=== PATIENT | male | born 1990 | race Caucasian/White ===

== ENCOUNTER 2017-07-30 | Emergency (ER) | payer SELFPAY ==
--- NOTE | 2017-07-30 15:41 | ER ---
Nurse's Notes [facility] Name: Enio Bradley Age: 27 yrs Sex: Male : 1990 Arrival Date: 07/30/2017 Time: 14:08 Bed 30 Private MD: Diagnosis: Abrasion, right knee;Cellulitis right knee Presentation: 07/30 14:45 Presenting complaint: Patient states: " About 3 days ago my knee started hurting. It's ph not to bad in the morning but during the day it swells up and really hurts." Pt reports pain in R knee, denies known injury or fever. Transition of care: patient was not received from another setting of care. Onset of symptoms was July 30, 2017. Care prior to arrival: None. 14:45 Method Of Arrival: Ambulatory ph 14:45 Acuity: JAMAL 4 ph Historical: - Allergies: 15:52 No Known Allergies; lk1 - Home Meds: 14:48 Insulin: Regular Sub-Q [Active]; Lantus Sub-Q daily [Active]; ph - PMHx: 14:48 ADD/ADHD; Diabetes - IDDM; ph - PSHx: 14:48 Ear Tubes; ph - Immunization history:: Adult Immunizations unknown. - Social history:: Smoking status: Patient uses tobacco products, chewing tobacco. - Family history:: not pertinent. - Hospitalizations: : No recent hospitalization is reported. Screenin:54 Abuse screen: Denies threats or abuse. Denies injuries from another. Nutritional lk1 screening: No deficits noted. Tuberculosis screening: No symptoms or risk factors identified. Fall Risk Total Romero Fall Scale indicates Low Risk Score (25-44 pts). Fall prevention measures have been instituted. Side Rails Up X 2 Placed close to Nursing Station Frequent Obs/Assesments occuring As available Patient and Family Educated on Fall Prevention Program and strategies. Assessment: 15:10 General: Appears in no apparent distress. Behavior is calm, cooperative, appropriate lk1 for age. Pain: Complains of pain in right knee Pain currently is 8 out of 10 on a pain scale. Cardiovascular: Capillary refill is brisk Patient's skin is warm and dry. Respiratory: Airway is patent Respiratory effort is even, unlabored, Respiratory pattern is regular, symmetrical. Derm: Wound noted right leg Wound is abrasion with redness surrounding. Vital Signs: 14:46 BP 129 / 87; Pulse 98; Resp 16; Temp 98.1; Pulse Ox 100% on R/A; Weight 83.91 kg; ph Height 5 ft. 10 in. (177.80 cm); Pain 8/10; 14:46 Body Mass Index 26.54 (83.91 kg, 177.80 cm) ph ED Course: 14:08 Patient arrived in ED. as 14:18 Debbie Gomez FNP is [facility]. ka 14:18 Reece Hebert MD is Attending Physician. ka 14:46 Triage completed. ph 14:48 Arm band placed on. ph 15:50 Sandhya Mendes, YVONNE is Primary Nurse. lk1 15:56 Patient has correct armband on for positive identification. lk1 15:56 No provider procedures requiring assistance completed. Patient did not have IV access lk1 during this emergency room visit. Administered Medications: No medications were administered Outcome: 15:41 Discharge ordered by MD. ka 15:53 Discharged to home ambulatory. lk1 15:53 Condition: good 15:53 Discharge instructions given to patient, Instructed on discharge instructions, follow up and referral plans. medication usage, safety practices, Demonstrated understanding of instructions, follow-up care, medications, Prescriptions given X 2. 15:56 Patient left the ED. lk1 Signatures: Debbie Gomez FNP FNP kav Martinez, Amelia as Hall, Patricia, RN RN Sandhya Mendes, YVONNE RN lk1
--- NOTE | 2017-07-30 15:42 | EDPHYS ---
Physician Documentation [facility] Name: Enio Bradley Age: 27 yrs Sex: Male : 1990 Arrival Date: 07/30/2017 Time: 14:08 Bed 30 Private MD: ED Physician Reece Hebert HPI: 07/30 14:19 This 27 yrs old Male presents to ER via Unassigned with complaints of Knee kav Pain. 15:15 Onset: The symptoms/episode began/occurred acutely, last night. The patient has not kav experienced similar symptoms in the past. The patient has not recently seen a physician. right knee with warmth, tenderness to touch and erythema. 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 pmhx: type 1 dm, staph infection x 2 past 5 years. 15:18 The patient presents with swelling, tenderness. The complaints affect the right knee. kav Context: The problem was sustained at work. Modifying factors: The symptoms are alleviated by nothing. the symptoms are aggravated by bending knee. Associated signs and symptoms: Pertinent negatives fever. Treatment prior to arrival includes: no previous treatment. Severity of symptoms: At their worst the symptoms were mild, just prior to arrival. Historical: - Allergies: 15:52 No Known Allergies; lk1 - Home Meds: 14:48 Insulin: Regular Sub-Q [Active]; Lantus Sub-Q daily [Active]; ph - PMHx: 14:48 ADD/ADHD; Diabetes - IDDM; ph - PSHx: 14:48 Ear Tubes; ph - Immunization history:: Adult Immunizations unknown. - Social history:: Smoking status: Patient uses tobacco products, chewing tobacco. - Family history:: not pertinent. - Hospitalizations: : No recent hospitalization is reported. ROS: 15:18 Constitutional: Negative for fever, chills, and weight loss, Eyes: Negative for injury, kav pain, redness, and discharge, ENT: Negative for injury, pain, and discharge, Neck: Negative for injury, pain, and swelling, Cardiovascular: Negative for chest pain, palpitations, and edema, Respiratory: Negative for shortness of breath, cough, wheezing, and pleuritic chest pain, Abdomen/GI: Negative for abdominal pain, nausea, vomiting, diarrhea, and constipation, Back: Negative for injury and pain, : Negative for injury, bleeding, discharge, and swelling, MS/Extremity: Negative for injury and deformity, Neuro: Negative for headache, weakness, numbness, tingling, and seizure, Psych: Negative for depression, anxiety, suicide ideation, homicidal ideation, and hallucinations, Allergy/Immunology: Negative for hives, rash, and allergies, Endocrine: Negative for neck swelling, polydipsia, polyuria, polyphagia, and marked weight changes, Hematologic/Lymphatic: Negative for swollen nodes, abnormal bleeding, and unusual bruising. 15:18 Skin: Positive for erythema, swelling. Exam: 15:18 Constitutional: This is a well developed, well nourished patient who is awake, alert, kav and in no acute distress. Head/Face: Normocephalic, atraumatic. Eyes: Pupils equal round and reactive to light, extra-ocular motions intact. Lids and lashes normal. Conjunctiva and sclera are non-icteric and not injected. Cornea within normal limits. Periorbital areas with no swelling, redness, or edema. ENT: Nares patent. No nasal discharge, no septal abnormalities noted. Tympanic membranes are normal and external auditory canals are clear. Oropharynx with no redness, swelling, or masses, exudates, or evidence of obstruction, uvula midline. Mucous membranes moist. Neck: Trachea midline, no thyromegaly or masses palpated, and no cervical lymphadenopathy. Supple, full range of motion without nuchal rigidity, or vertebral point tenderness. No Meningismus. Chest/axilla: Normal chest wall appearance and motion. Nontender with no deformity. No lesions are appreciated. Cardiovascular: Regular rate and rhythm with a normal S1 and S2. No gallops, murmurs, or rubs. Normal PMI, no JVD. No pulse deficits. Respiratory: Lungs have equal breath sounds bilaterally, clear to auscultation and percussion. No rales, rhonchi or wheezes noted. No increased work of breathing, no retractions or nasal flaring. Abdomen/GI: Soft, non-tender, with normal bowel sounds. No distension or tympany. No guarding or rebound. No evidence of tenderness throughout. Back: No spinal tenderness. No costovertebral tenderness. Full range of motion. MS/ Extremity: Pulses equal, no cyanosis. Neurovascular intact. Full, normal range of motion. Neuro: Awake and alert, GCS 15, oriented to person, place, time, and situation. Cranial nerves II-XII grossly intact. Motor strength 5/5 in all extremities. Sensory grossly intact. Cerebellar exam normal. Normal gait. Psych: Awake, alert, with orientation to person, place and time. Behavior, mood, and affect are within normal limits. 15:18 Skin: cellulitis, that is mild, irregular, on the right knee. Vital Signs: 14:46 BP 129 / 87; Pulse 98; Resp 16; Temp 98.1; Pulse Ox 100% on R/A; Weight 83.91 kg; ph Height 5 ft. 10 in. (177.80 cm); Pain 8/10; 14:46 Body Mass Index 26.54 (83.91 kg, 177.80 cm) ph MDM: 14:52 Patient medically screened. [facility] 15:18 Data reviewed: vital signs, nurses notes. kav Administered Medications: No medications were administered Disposition: 16:13 Co-signature as Attending Physician, Reece Hebert MD. rn Disposition: 07/30/17 15:41 Discharged to Home. Impression: Abrasion, right knee, Cellulitis right knee. - Condition is Stable. - Discharge Instructions: Cellulitis, [id number], Abrasion, [id number]. - Prescriptions for Bactroban 2 % Topical Ointment - Apply to affected area 1 application by TOPICAL route every 12 hours; 15 gram. Bactrim DS 800- 160 mg Oral Tablet - take 1 tablet by ORAL route every 12 hours for 10 days; 20 tablet. - Medication Reconciliation Form, Thank You Letter, Antibiotic Education, Prescription Opioid Use form. - Follow up: Private Physician; When: 2 - 3 days; Reason: Recheck today's complaints, Continuance of care, Re-evaluation by your physician. - Problem is new. - Symptoms are unchanged. Signatures: Debbie Gomez, GIS WEB DEVELOPER GIS WEB DEVELOPER Reece Mena MD MD rn Hall, Patricia, RN RN ph Kluge, Leah, RN RN lk1
== END 2017-07-30 15:56 | disposition home or self-care (01) ==
CPT/HCPCS: 99282

== ENCOUNTER 2018-02-12 23:36 | Emergency (ER) | payer SELFPAY ==
--- OUTSIDE RECORDS SUMMARY | 2018-02-12 23:39 | XMS REPORT | Continuity of Care Document ---
:1990 Author Organization Interface Problems Problem Status Onset Classification Date Comments Source Date Reported Discharge 11/26/2016 [facility] Diagnosis: 7 Cervical strain ACCIDENT Active [facility] 7 [place] DM (<span Resolved Problem 11/26/2016 [facility] ID="[id number]">Confirme d</span>) Medications Medication Details Route Status Patient Ordering Order Source Instructions Provider Date Cyclobenzaprine 10 mg, PO, Active hydrochloride 10 TID, PRN 017 [place] MG Oral Tablet Muscle [Flexeril] Spasm, X 10 day, # 30 tab, 0 Refill(s) Motrin 800 mg oral 800 mg=1 Active tablet tab, PO, 017 [place] TID, X 7 day, # 21 tab, 0 Refill(s) Allergies, Adverse Reactions, Alerts Substance Category Reaction Severity Reaction Status Date Comments Source type Reported Immunizations Immunization Date Given Site Status Last Updated Comments Source Results Order Results Value Reference Date Interpretation Comments Source Name Range Vital Signs Vital Sign Value Date Comments Source Temperature Oral (F) 98.2 F 11/24/2016 [facility] Heart Rate 88 11/24/2016 [facility] Respitory Rate 16 11/24/2016 [facility] Systolic (mm Hg) 117 11/24/2016 [facility] Diastolic (mm Hg) 75 11/24/2016 [facility] BMI Calculated 26.6 11/24/2016 [facility] Height 177.8 cm 11/24/2016 [facility] Weight 84.091 11/24/2016 [facility] Respitory Rate 18 11/24/2016 [facility] Heart Rate 91 11/24/2016 [facility] Systolic (mm Hg) 118 11/24/2016 [facility] Diastolic (mm Hg) 76 11/24/2016 [facility] Temperature Oral (F) 98.1 F 11/24/2016 [facility] Encounters Location Location Encounter Encounter Reason Attending ADM DC Status Source Details Type Number For Provider Date Date Visit [facility] Emergency [id number] [place] 11/24 11/24 MAGAN [place] /2016 [facility] Procedures Procedure Code Date Perfomer Comments Source Removal of [id number] MAGAN [place] silastic tubes from ear
--- OUTSIDE RECORDS SUMMARY | 2018-02-12 23:39 | XMS REPORT | Summary of Care ---
:1990 Author Organization [facility] Address [address] [place] [address]- Encounter HQ Bethelntr_raul(FIN) [id number] Date(s): 11/23/16 - 11/23/16 [facility] [address] [place] [phone] Discharge Diagnosis: Cervical strain Discharge Disposition: Home or Self Care Attending Physician: Porsha Al[place] MD Vital Signs Most recent to oldest [Reference Range]: 1 2 Height 177.8 cm (11/23/16 8:48 PM) Temperature Oral [96.4-99.1 DegF] 98.2 DegF 98.1 DegF (11/23/16 10:00 PM) (11/23/16 8:48 PM) Blood Pressure [90-140/60-90 mmHg] 117/75 mmHg 118/76 mmHg (11/23/16 10:00 PM) (11/23/16 8:48 PM) Respiratory Rate [14-20 BRMIN] 16 BRMIN 18 BRMIN (11/23/16 10:00 PM) (11/23/16 8:48 PM) Peripheral Pulse Rate [60-100 bpm] 88 bpm 91 bpm (11/23/16 10:00 PM) (11/23/16 8:48 PM) Weight 84.091 kg (11/23/16 8:48 PM) Body Mass Index 26.6 m2 (11/23/16 8:48 PM) Problem List Condition Effective Dates Status Health Status Informant DM (diabetes mellitus)(Confirmed) Resolved Allergies, Adverse Reactions, Alerts Substance Reaction Severity Status NKDA Active Medications Flexeril 10 mg oral tablet 10 mg, PO, TID, PRN Muscle Spasm, X 10 day, # 30 tab, 0 Refill(s) Start Date: 11/23/16 Stop Date: 12/03/16 Status: OrderedMotrin 800 mg oral tablet 800 mg=1 tab, PO, TID, X 7 day, # 21 tab, 0 Refill(s) Start Date: 11/23/16 Stop Date: 11/30/16 Status: Ordered Results No data available for this section Immunizations No data available for this section Procedures Procedure Date Related Diagnosis Body Site Removal of silastic tubes from ear Social History Social History Type Response Smoking Status Never smoker; Exposure to Tobacco Smoke None; Cigarette Smoking Last 365 Days No; Reg Smoking Cessation Counseling No Assessment and Plan No data available for this section
[2018-02-13 00:30] LABS: Absolute Lymphocytes (CBC) 1.2 K/uL (0.7-4.9); Absolute Monocytes 0.4 K/uL (0.1-1.3); Basophils % 0.9 % (0-1.3); Eosinophils % 2.5 % (0-4.4); Hematocrit 44.7 % (39.6-49.0); Lymphocytes % 31.2 % (15.3-44.8); MCV 91.3 fL (80-100); MPV 8.2 fL (7.6-11.3); Monocytes % 11.1 % (3.3-12.3)
[2018-02-13] MEDS ORDERED: INSULIN -REGULAR HUMAN 50 UNIT/0.5 ML ML ONE ×2 (00:31→02:50)
[2018-02-13] MEDS ORDERED: DIPHENOX/ATROP SULF 1 TAB PO ONE (00:32)
[2018-02-13] MEDS ORDERED: NA CHLORIDE 0.9% 1,000 ML ONE (00:32)
[2018-02-13 00:49] LABS: ALT/SGPT 42 U/L (12-78); AST/SGOT 28 U/L (15-37); Albumin 3.8 g/dL (3.4-5.0); Alkaline Phosphatase 118 U/L (45-117); BUN Blood Urea Nitrogen 19 mg/dL (7-18); Bicarbonate 26 mmol/L (21-32); Bilirubin Direct 0.3 mg/dL (0-0.2); Bilirubin Total 1.3 mg/dL (0.2-1.0); Lipase 78 U/L (73-393); Potassium 4.6 mmol/L (3.5-5.1); Protein, Total 7.6 g/dL (6.4-8.2); Sodium Level 129 mmol/L (136-145)
[2018-02-13 00:50] LABS: Glucose Level 643 mg/dL (74-106)
--- NOTE | 2018-02-13 04:11 | EDPHYS ---
Physician Documentation [facility] Name: Enio Bradley Age: 27 yrs Sex: Male : 1990 Arrival Date: 02/12/2018 Time: 23:37 Bed 20 Private MD: ED Physician Humberot Valdez HPI: 02/13 00:50 This 27 yrs old Male presents to ER via Ambulatory with complaints of tw4 Diarrhea. 00:50 The patient presents to the emergency department with diarrhea, 15 times since the tw4 onset of symptoms. Onset: The symptoms/episode began/occurred yesterday. Possible causes: unknown. The symptoms are aggravated by nothing. The symptoms are alleviated by nothing. Associated signs and symptoms: The patient has no apparent associated signs or symptoms. Severity of symptoms: At their worst the symptoms were moderate. The patient has not experienced similar symptoms in the past. Historical: - Allergies: 02/12 23:53 No Known Allergies; fc - Home Meds: 23:53 Lantus Sub-Q 32 unit twice a day [Active]; Insulin: Regular Sub-Q qid per sliding scale fc [Active]; - PMHx: 23:53 ADD/ADHD; Diabetes - IDDM; fc - PSHx: 23:53 Ear Tubes; fc - Immunization history:: Last tetanus immunization: unknown. - Social history:: Smoking status: Patient/guardian denies using tobacco, Patient uses alcohol, occasionally. Patient/guardian denies using street drugs. - Ebola Screening: : Patient negative for fever greater than or equal to 101.5 degrees Fahrenheit, and additional compatible Ebola Virus Disease symptoms Patient denies exposure to infectious person Patient denies travel to an Ebola-affected area in the 21 days before illness onset. ROS: 02/13 00:50 Constitutional: Negative for fever, chills, and weight loss, Eyes: Negative for injury, tw4 pain, redness, and discharge, Cardiovascular: Negative for chest pain, palpitations, and edema, Respiratory: Negative for shortness of breath, cough, wheezing, and pleuritic chest pain, MS/Extremity: Negative for injury and deformity, Skin: Negative for injury, rash, and discoloration. Abdomen/GI: Positive for diarrhea, Negative for abdominal pain, nausea and vomiting, nausea, vomiting, and diarrhea, nausea, vomiting, abdominal cramps, abdominal distension, anorexia, dysphagia, hematemesis. Exam: 00:50 Constitutional: This is a well developed, well nourished patient who is awake, alert, tw4 and in no acute distress. Head/Face: Normocephalic, atraumatic. Chest/axilla: Normal chest wall appearance and motion. Nontender with no deformity. No lesions are appreciated. Cardiovascular: Regular rate and rhythm with a normal S1 and S2. No gallops, murmurs, or rubs. Normal PMI, no JVD. No pulse deficits. Respiratory: Lungs have equal breath sounds bilaterally, clear to auscultation and percussion. No rales, rhonchi or wheezes noted. No increased work of breathing, no retractions or nasal flaring. Abdomen/GI: Soft, non-tender, with normal bowel sounds. No distension or tympany. No guarding or rebound. No evidence of tenderness throughout. Back: No spinal tenderness. No costovertebral tenderness. Full range of motion. MS/ Extremity: Pulses equal, no cyanosis. Neurovascular intact. Full, normal range of motion. Neuro: Awake and alert, GCS 15, oriented to person, place, time, and situation. Cranial nerves II-XII grossly intact. Motor strength 5/5 in all extremities. Sensory grossly intact. Cerebellar exam normal. Normal gait. Vital Signs: 02/12 23:40 BP 138 / 79; Pulse 103; Resp 20; Temp 98.2(O); Pulse Ox 100% on R/A; Weight 79.38 kg fc (R); Height 5 ft. 10 in. (177.80 cm) (R); Pain 0/10; 02/13 00:45 Pulse 100; Resp 16 S; Pulse Ox 100% on R/A; jd3 01:20 BP 116 / 69; Pulse 102; Resp 16 S; Pulse Ox 98% on R/A; jd3 02:33 BP 114 / 64; Pulse 94; Resp 18 S; Pulse Ox 98% on R/A; jd3 03:47 BP 113 / 62; Pulse 90; Resp 17 S; Pulse Ox 98% on R/A; jd3 02/12 23:40 Body Mass Index 25.11 (79.38 kg, 177.80 cm) MDM: 02/12 23:42 Patient medically screened. tw4 02/13 04:58 Differential diagnosis: Nonspecific abd pain, gastritis. Data reviewed: vital signs, tw4 nurses notes. Data interpreted: Pulse oximetry: Interpretation: normal. Counseling: I had a detailed discussion with the patient and/or guardian regarding: the historical points, exam findings, and any diagnostic results supporting the discharge/admit diagnosis. 02/12 23:55 Order name: Basic Metabolic Panel; Complete Time: 02:09 tw4 02/13 02:09 Interpretation: Normal except: NA 129; GLUC 643; BUN 19; CRE 1.40; GFR 61. tw4 02/12 23:55 Order name: CBC with Diff; Complete Time: 02:09 tw4 02/13 02:09 Interpretation: Normal except: WBC 3.7. tw4 02/12 23:55 Order name: Creatinine for Radiology; Complete Time: 02:09 4 02/13 02:09 Interpretation: Normal except: CRE 1.40. tw4 02/12 23:55 Order name: Hepatic Function; Complete Time: 02:09 tw4 02/13 02:09 Interpretation: Normal except: ALK 118; BILIT 1.3; BILID 0.3; GLOB 3.8; A/G 1.0. tw4 02/12 23:55 Order name: Lipase; Complete Time: 02:09 4 02/13 02:09 Interpretation: Within normal limits: LIP 78. tw4 02/12 23:55 Order name: IV Saline Lock; Complete Time: 00:36 tw4 02/12 23:55 Order name: Labs collected and sent; Complete Time: 00:36 4 02/12 23:55 Order name: Ketone, Serum; Complete Time: 02:09 tw4 02/13 02:09 Interpretation: Within normal limits: ACET NEG. tw4 Administered Medications: 00:35 Drug: LoMOTIL 2 tabs Route: PO; jd3 02:50 Follow up: Response: No adverse reaction jd3 00:36 Drug: NS 0.9% 1000 ml Route: IV; Rate: 1 bolus; Site: left antecubital; jd3 04:27 Follow up: Response: No adverse reaction; IV Status: Completed infusion; IV Intake: jd3 1000ml 00:36 Drug: Insulin Regular Human 10 units {Co-Signature: cc3 (Magy Medrano).} Route: IVP; jd3 Site: left antecubital; 02:50 Follow up: Response: No adverse reaction jd3 02:49 Drug: Insulin Regular Human 10 units {Co-Signature: tc (Lisa Combs RN).} Route: IVP; jd3 Site: left antecubital; 04:27 Follow up: Response: No adverse reaction; Blood sugar is lowered jd3 Point of Care Testing: Blood Glucose: 00:00 Blood Glucose: High (>450 mg/dL); jd3 01:20 Blood Glucose: 338 mg/dL; jd3 02:30 Blood Glucose: 371 mg/dL; jd3 03:47 Blood Glucose: 278 mg/dL; jd3 00:00 provider notified, blood sent to lab. jd3 Ranges: Critical Glucose Levels:Adult <50 mg/dl or >400 mg/dl <40 mg/dl or >180 mg/dl Disposition: 02/13/18 04:11 Discharged to Home. Impression: Diarrhea, unspecified, Dehydration, Hyperglycemia, unspecified. - Condition is Stable. - Discharge Instructions: Food Choices to Help Relieve Diarrhea, Adult, Diarrhea, Adult, Hyperglycemia, Hyperglycemia, Gwpa-[id number]-Movu. - Prescriptions for Lomotil 2.5- 0.025 mg Oral Tablet - take 2 tablet by ORAL route once daily As needed; 20 tablet. - Medication Reconciliation Form, Thank You Letter, Antibiotic Education, Prescription Opioid Use form. - Follow up: Private Physician; When: Upon discharge from the Emergency Department; Reason: If symptoms return, Further diagnostic work-up, Recheck today's complaints, Continuance of care. - Problem is new. - Symptoms have improved. Signatures: Dispatcher [employer] [facility] An Bellamy, RN Manoj Peña RN RN jd3 Wadley, Terrence, MD MD tw4 Magy Medrano cc3 Lisa Combs RN, ea Corrections: (The following items were deleted from the chart) 00:24 02/12 23:55 BASIC METABOLIC PANEL+C.LAB.BRZ ordered. [facility] 02/13 04:27 04:11 02/13/2018 04:11 Discharged to Home. Impression: Diarrhea, unspecified; jd3 Dehydration; Hyperglycemia, unspecified. Condition is Stable. Forms are Medication Reconciliation Form, Thank You Letter, Antibiotic Education, Prescription Opioid Use. Follow up: Private Physician; When: Upon discharge from the Emergency Department; Reason: If symptoms return, Further diagnostic work-up, Recheck today's complaints, Continuance of care. Problem is new. Symptoms have improved. tw4
--- NOTE | 2018-02-13 04:11 | ER ---
Nurse's Notes [facility] Name: Enio Bradley Age: 27 yrs Sex: Male : 1990 Arrival Date: 02/12/2018 Time: 23:37 Bed 20 Private MD: Diagnosis: Diarrhea, unspecified;Dehydration;Hyperglycemia, unspecified Presentation: 02/12 23:40 Presenting complaint: Patient states: that he has had diarrhea since yesterday and is fc concerned for dehydration due to his diabetes. BS this am was 380. Denies any abd pain. Transition of care: patient was not received from another setting of care. Onset of symptoms was February 11, 2018. Risk Assessment: Do you want to hurt yourself or someone else? Patient reports no desire to harm self or others. Initial Sepsis Screen: Does the patient meet any 2 criteria? HR > 90 bpm. Yes Does the patient have a suspected source of infection? No. Patient's initial sepsis screen is negative. Care prior to arrival: Medication(s) given: Pepto. 23:40 Method Of Arrival: Ambulatory 23:40 Acuity: JAMAL 3 fc Historical: - Allergies: 23:53 No Known Allergies; fc - Home Meds: 23:53 Lantus Sub-Q 32 unit twice a day [Active]; Insulin: Regular Sub-Q qid per sliding scale fc [Active]; - PMHx: 23:53 ADD/ADHD; Diabetes - IDDM; fc - PSHx: 23:53 Ear Tubes; fc - Immunization history:: Last tetanus immunization: unknown. - Social history:: Smoking status: Patient/guardian denies using tobacco, Patient uses alcohol, occasionally. Patient/guardian denies using street drugs. - Ebola Screening: : Patient negative for fever greater than or equal to 101.5 degrees Fahrenheit, and additional compatible Ebola Virus Disease symptoms Patient denies exposure to infectious person Patient denies travel to an Ebola-affected area in the 21 days before illness onset. Screenin:40 Abuse screen: Denies threats or abuse. Nutritional screening: No deficits noted. fc Tuberculosis screening: No symptoms or risk factors identified. Fall Risk None identified. Assessment: 23:45 General: Appears in no apparent distress. uncomfortable, Behavior is calm, cooperative, jd3 appropriate for age. Pain: Complains of pain in abdomen Quality of pain is described as aching. Neuro: Level of Consciousness is awake, alert, obeys commands, Oriented to person, place, time, situation. Cardiovascular: Capillary refill < 3 seconds Patient's skin is warm and dry. Respiratory: Airway is patent Respiratory effort is even, unlabored, Respiratory pattern is regular, symmetrical. GI: Abdomen is flat, non-distended, Abd is soft and non tender X 4 quads. Reports diarrhea. : No signs and/or symptoms were reported regarding the genitourinary system. EENT: No signs and/or symptoms were reported regarding the EENT system. Derm: Skin is intact, Skin is dry, Skin is normal, Skin temperature is warm. Musculoskeletal: Circulation, motion, and sensation intact. Range of motion: intact in all extremities. 02/13 00:45 Reassessment: Patient appears in no apparent distress at this time. No changes from jd3 previously documented assessment. Patient and/or family updated on plan of care and expected duration. Pain level reassessed. Patient is alert, oriented x 3, equal unlabored respirations, skin warm/dry/pink. 01:19 Reassessment: Patient appears in no apparent distress at this time. No changes from jd3 previously documented assessment. Patient and/or family updated on plan of care and expected duration. Pain level reassessed. Patient is alert, oriented x 3, equal unlabored respirations, skin warm/dry/pink. 02:33 Reassessment: Patient appears in no apparent distress at this time. No changes from jd3 previously documented assessment. Patient and/or family updated on plan of care and expected duration. Pain level reassessed. Patient is alert, oriented x 3, equal unlabored respirations, skin warm/dry/pink. 03:50 Reassessment: Patient appears in no apparent distress at this time. No changes from jd3 previously documented assessment. Patient and/or family updated on plan of care and expected duration. Pain level reassessed. Patient is alert, oriented x 3, equal unlabored respirations, skin warm/dry/pink. 04:26 Reassessment: Patient appears in no apparent distress at this time. Patient and/or jd3 family updated on plan of care and expected duration. Pain level reassessed. Patient is alert, oriented x 3, equal unlabored respirations, skin warm/dry/pink. pt reported understanding of discharge instructions, even and steady gait upon discharge. Patient states feeling better. Vital Signs: 02/12 23:40 BP 138 / 79; Pulse 103; Resp 20; Temp 98.2(O); Pulse Ox 100% on R/A; Weight 79.38 kg (R); Height 5 ft. 10 in. (177.80 cm) (R); Pain 0/10; 02/13 00:45 Pulse 100; Resp 16 S; Pulse Ox 100% on R/A; jd3 01:20 BP 116 / 69; Pulse 102; Resp 16 S; Pulse Ox 98% on R/A; jd3 02:33 BP 114 / 64; Pulse 94; Resp 18 S; Pulse Ox 98% on R/A; jd3 03:47 BP 113 / 62; Pulse 90; Resp 17 S; Pulse Ox 98% on R/A; jd3 02/12 23:40 Body Mass Index 25.11 (79.38 kg, 177.80 cm) ED Course: 02/12 23:37 Patient arrived in ED. am2 23:40 Arm band placed on Patient placed in an exam room, on a stretcher. fc 23:40 Patient has correct armband on for positive identification. Bed in low position. Call light in reach. 23:42 Humberto Valdez MD is Attending Physician. tw4 23:51 Triage completed. 23:54 Manoj Jasso, YVONNE is Primary Nurse. jd3 02/13 00:12 Inserted saline lock: 20 gauge in left antecubital area, using aseptic technique. Blood jd3 collected. 04:25 No provider procedures requiring assistance completed. IV discontinued, intact, jd3 bleeding controlled, No redness/swelling at site. Pressure dressing applied. Administered Medications: 00:35 Drug: LoMOTIL 2 tabs Route: PO; jd3 02:50 Follow up: Response: No adverse reaction jd3 00:36 Drug: NS 0.9% 1000 ml Route: IV; Rate: 1 bolus; Site: left antecubital; jd3 04:27 Follow up: Response: No adverse reaction; IV Status: Completed infusion; IV Intake: jd3 1000ml 00:36 Drug: Insulin Regular Human 10 units {Co-Signature: cc3 (Magy Medrano).} Route: IVP; jd3 Site: left antecubital; 02:50 Follow up: Response: No adverse reaction jd3 02:49 Drug: Insulin Regular Human 10 units {Co-Signature: tc (Lisa Combs RN).} Route: IVP; jd3 Site: left antecubital; 04:27 Follow up: Response: No adverse reaction; Blood sugar is lowered jd3 Point of Care Testing: Blood Glucose: 00:00 Blood Glucose: High (>450 mg/dL); jd3 01:20 Blood Glucose: 338 mg/dL; jd3 02:30 Blood Glucose: 371 mg/dL; jd3 03:47 Blood Glucose: 278 mg/dL; jd3 00:00 provider notified, blood sent to lab. jd3 Ranges: Intake: 04:27 IV: 1000ml; Total: 1000ml. jd3 Outcome: 04:11 Discharge ordered by . tw4 04:25 Discharged to home ambulatory. jd3 04:25 Condition: stable 04:25 Discharge instructions given to patient, Instructed on discharge instructions, follow up and referral plans. medication usage, Demonstrated understanding of instructions, follow-up care, medications, Prescriptions given X 1. 04:27 Patient left the ED. jd3 Signatures: An Bellamy, RN RN Petty Gamboa Jonathon, RN RN jd3 Humberto Valdez MD MD tw4 Magy Medrano 3 Lisa Combs RN, ea Corrections: (The following items were deleted from the chart) 03:50 03:47 BP 120 / 89; Pulse 97bpm; Resp 22bpm; Spontaneous; Pulse Ox 95% 3 lpm Nasal jd3 Cannula; jd3
[2018-02-13 04:43] VITALS: TEMP 98.2
[2018-02-13 04:45] VITALS: O2SAT 98
[2018-02-13 04:47] VITALS: BP 113/62
== END 2018-02-13 04:27 | disposition home or self-care (01) ==
LOC: ER 23:36
DX: E86.0 Dehydration (principal); E11.65 Type 2 diabetes mellitus with hyperglycemia; Z79.4 Long term (current) use of insulin
CPT/HCPCS: 36415; 80048; 80076; 82010; 82962; 83690; 85025; 96361; 96374; 99284; J7030

== ENCOUNTER 2018-03-28 13:37 | Emergency (ER) | payer SELFPAY ==
--- OUTSIDE RECORDS SUMMARY | 2018-03-28 13:39 | XMS REPORT | Continuity of Care Document ---
:1990 Author Organization Interface Problems Problem Status Onset Classification Date Comments Source Date Reported Discharge 11/26/2016 [facility] Diagnosis: 7 Cervical strain ACCIDENT Active [facility] 7 [place] DM (<span Resolved Problem 11/26/2016 [facility] ID="[id number]">Confirme d</span>) Medications Medication Details Route Status Patient Ordering Order Source Instructions Provider Date Cyclobenzaprine 10 mg, PO, Active hydrochloride 10 TID, PRN 017 [place] [facility] Oral Tablet Muscle [Flexeril] Spasm, X 10 day, # 30 tab, 0 Refill(s) Motrin 800 mg oral 800 mg=1 Active tablet tab, PO, 017 [place] TID, X 7 day, # 21 tab, 0 Refill(s) Allergies, Adverse Reactions, Alerts Substance Category Reaction Severity Reaction Status Date Comments Source type Reported Immunizations Immunization Date Given Site Status Last Updated Comments Source Results Order Results Value Reference Date Interpretation Comments Source Name Range Vital Signs Vital Sign Value Date Comments Source Temperature Oral (F) 98.2 F 11/24/2016 [facility] Heart Rate 88 11/24/2016 [facility] Respitory Rate 16 11/24/2016 [facility] Systolic (mm Hg) 117 11/24/2016 [facility] Diastolic (mm Hg) 75 11/24/2016 [facility] BMI Calculated 26.6 11/24/2016 [facility] Height 177.8 cm 11/24/2016 [facility] Weight 84.091 11/24/2016 [facility] Respitory Rate 18 11/24/2016 [facility] Heart Rate 91 11/24/2016 [facility] Systolic (mm Hg) 118 11/24/2016 [facility] Diastolic (mm Hg) 76 11/24/2016 [facility] Temperature Oral (F) 98.1 F 11/24/2016 [facility] Encounters Location Location Encounter Encounter Reason Attending ADM DC Status Source Details Type Number For Provider Date Date Visit [facility] Emergency [id number] [place] 11/24 11/24 MAGAN [place] /2016 [facility] Procedures Procedure Code Date Perfomer Comments Source Removal of [id number] MAGAN [place] silastic tubes from ear
[2018-03-28 14:19] LABS: Arterial Blood Carboxyhemoglob 1.9 % (0-1.5); Blood Gas Oxyhemoglobin 94.9 % (94-97); Blood O2 Saturation 97.8 % (92-98.5)
[2018-03-28] MEDS ORDERED: NA CHLORIDE 0.9% 1,000 ML ONE ×4 (14:25→18:21)
[2018-03-28 14:48] LABS: BUN Blood Urea Nitrogen 19 mg/dL (7-18); Bicarbonate 21 mmol/L (21-32); Glucose Level 395 mg/dL (74-106); Potassium 3.8 mmol/L (3.5-5.1); Sodium Level 134 mmol/L (136-145)
[2018-03-28 15:11] LABS: Urine Blood 1+ (NEG); Urine Glucose 2+ (NEG); Urine Protein NEGATIVE (NEG); Urine Specific Gravity 1.015 (1.005-1.030)
[2018-03-28 15:11] LABS: Absolute Lymphocytes (CBC) 1.8 K/uL (0.7-4.9); Absolute Monocytes 0.4 K/uL (0.1-1.3); Absolute Neutrophil 4.7 K/uL (1.8-8.0); Basophils % 0.6 % (0-1.3); Eosinophils % 0.6 % (0-4.4); Hematocrit 47.3 % (39.6-49.0); Lymphocytes % 25.5 % (15.3-44.8); MCH 31.2 pg (27.0-35.0); MCV 89.4 fL (80-100); Monocytes % 6.4 % (3.3-12.3); RBC Red Blood Cell Count 5.29 M/uL (4.33-5.43)
--- NOTE | 2018-03-28 15:33 | EKG ---
Test Date: 2018-03-28 Test Time: 14:28:08 Wood Form Builder: KANU MEASUREMENT RESULTS: Intervals: Rate: 101 PA: 148 QRSD: 74 QT: 336 QTc: 435 [place]: P: 43 PA: 148 QRS: 52 T: 13 INTERPRETIVE STATEMENTS: Sinus tachycardia Possible Left atrial enlargement Otherwise normal ECG Compared to ECG 09/02/2016 12:14:29 Sinus rhythm no longer present ST (T wave) deviation no longer present Electronically Signed On 03-28-18 15:32:36 PSYCHIATRIC REGISTERED NURSE by Chong Shoemaker
[2018-03-28] MEDS ORDERED: INSULIN -REGULAR HUMAN 50 UNIT/0.5 ML ML ONE (15:34)
--- NOTE | 2018-03-28 16:38 | EDPHYS ---
Physician Documentation [facility] Name: Enio Bradley Age: 27 yrs Sex: Male : 1990 Arrival Date: 03/28/2018 Time: 13:38 Bed 3 Private MD: ED Physician Reece Hebert HPI: 03/28 14:13 This 27 yrs old Male presents to ER via Ambulatory with complaints of High kb Blood Sugar. 14:13 The patient or guardian reports hyperglycemia, polydipsia, polyuria, that was kb potentially precipitated by no particular event, with the patient's symptoms witnessed by no one, Treatment prior to arrival includes: taking additional insulin. Onset: The symptoms/episode began/occurred yesterday. Associated signs and symptoms: Pertinent positives: polydipsia, polyuria. Current symptoms: In the emergency department the patient's symptoms are unchanged from the initial presentation. The patient has experienced similar episodes in the past. The patient has not recently seen a physician. Pt states "I felt like I was going into DKA so I wanted to come in before it got bad." Reports BGL over 500 with polyuria and polydipsia. Denies nausea or vomiting. Historical: - Allergies: 13:57 No Known Drug Allergies; tw2 - Home Meds: 13:57 Lantus Sub-Q 32 unit twice a day [Active]; Insulin: Regular Sub-Q qid per sliding scale tw2 [Active]; - PMHx: 13:57 ADD/ADHD; Diabetes - IDDM; tw2 - PSHx: 13:57 Ear Tubes; tw2 - Immunization history:: Adult Immunizations up to date. - Social history:: Smoking status: Patient uses tobacco products, chewing tobacco. - Ebola Screening: : Patient denies travel to an Ebola-affected area in the 21 days before illness onset. ROS: 14:15 Constitutional: Negative for fever, chills, and weight loss, ENT: Negative for injury, kb pain, and discharge, Neck: Negative for injury, pain, and swelling, Cardiovascular: Negative for chest pain, palpitations, and edema, Respiratory: Negative for shortness of breath, cough, wheezing, and pleuritic chest pain, Abdomen/GI: Negative for abdominal pain, nausea, vomiting, diarrhea, and constipation, Back: Negative for injury and pain, MS/Extremity: Negative for injury and deformity, Skin: Negative for injury, rash, and discoloration, Neuro: Negative for headache, weakness, numbness, tingling, and seizure. 14:15 Endocrine: Positive for polydipsia, polyuria, Negative for goiter, cold intolerance, heat intolerance, polyphagia, weight gain, weight loss. Exam: 14:15 Constitutional: This is a well developed, well nourished patient who is awake, alert, kb and in no acute distress. Head/Face: Normocephalic, atraumatic. ENT: Nares patent. No nasal discharge, no septal abnormalities noted. Tympanic membranes are normal and external auditory canals are clear. Oropharynx with no redness, swelling, or masses, exudates, or evidence of obstruction, uvula midline. Mucous membranes moist. Neck: Trachea midline, no thyromegaly or masses palpated, and no cervical lymphadenopathy. Supple, full range of motion without nuchal rigidity, or vertebral point tenderness. No Meningismus. Chest/axilla: Normal chest wall appearance and motion. Nontender with no deformity. No lesions are appreciated. Cardiovascular: Regular rate and rhythm with a normal S1 and S2. No gallops, murmurs, or rubs. Normal PMI, no JVD. No pulse deficits. Respiratory: Lungs have equal breath sounds bilaterally, clear to auscultation and percussion. No rales, rhonchi or wheezes noted. No increased work of breathing, no retractions or nasal flaring. Abdomen/GI: Soft, non-tender, with normal bowel sounds. No distension or tympany. No guarding or rebound. No evidence of tenderness throughout. Skin: Warm, dry with normal turgor. Normal color with no rashes, no lesions, and no evidence of cellulitis. MS/ Extremity: Pulses equal, no cyanosis. Neurovascular intact. Full, normal range of motion. Neuro: Awake and alert, GCS 15, oriented to person, place, time, and situation. Cranial nerves II-XII grossly intact. Motor strength 5/5 in all extremities. Sensory grossly intact. Cerebellar exam normal. Normal gait. Vital Signs: 13:56 BP 124 / 80; Pulse 111; Resp 18; Temp 97.1(TE); Pulse Ox 100% on R/A; Pain 0/10; tw2 15:00 BP 116 / 72; Pulse 98; Resp 17; Pulse Ox 98% on R/A; Pain 0/10; hb 16:00 BP 102 / 74; Pulse 87; Resp 16; Pulse Ox 97% on R/A; hb 17:15 BP 101 / 64; Pulse 94; Resp 16; Pulse Ox 100% on R/A; Pain 0/10; hb 18:27 BP 99 / 62; Pulse 85; Resp 15; Pulse Ox 100% on R/A; hb MDM: 14:00 Patient medically screened. kb 14:15 Data reviewed: vital signs, nurses notes. Data interpreted: Pulse oximetry: on room air kb is 100 %. Interpretation: normal. 16:33 Counseling: I had a detailed discussion with the patient and/or guardian regarding: the kb historical points, exam findings, and any diagnostic results supporting the discharge/admit diagnosis, lab results, the need for further work-up and treatment in the hospital. Physician consultation: Abhi Senior MD was contacted at 16:35, regarding admission, to the ICU, patient's condition, and will see patient in ED, shortly. 19:02 ED course: Pt wants to go home, understands he should be admitted for hyperglycemia and rn possible mild/early DKA, patient understands, has had type 1 DM for a long time, and wants to go home, understands risks associated with decision.. 03/28 14:08 Order name: CBC with Diff 03/28 14:08 Order name: Basic Metabolic Panel 03/28 14:08 Order name: Acetone, Serum kb 03/28 14:08 Order name: ABG kb 03/28 14:26 Order name: Urine Dipstick--Ancillary (enter results) lt1 03/28 14:26 Order name: ABG Arterial Blood Gas; Complete Time: 14:26 EDMS 03/28 14:49 Order name: Basic Metabolic Panel; Complete Time: 15:54 EDMS 03/28 15:11 Order name: Urine Dipstick-Ancillary; Complete Time: 15:11 EDMS 03/28 15:15 Order name: CBC with Automated Diff; Complete Time: 15:18 EDMS 03/28 15:53 Order name: Acetone Level; Complete Time: 15:54 EDMS 03/28 16:52 Order name: Glucose, Ancillary Testing; Complete Time: 17:03 EDMS 03/28 17:02 Order name: BMP hb 03/28 17:50 Order name: Basic Metabolic Panel; Complete Time: 17:58 EDMS 03/28 14:08 Order name: Urine Dipstick-Ancillary (obtain specimen); Complete Time: 14:19 kb 03/28 14:08 Order name: EKG; Complete Time: 14:09 kb 03/28 14:08 Order name: EKG - Nurse/Tech; Complete Time: 15:33 kb 03/28 14:08 Order name: IV Start; Complete Time: 14:15 kb 03/28 16:11 Order name: Blood Glucose Level; Complete Time: 16:56 kb Administered Medications: 14:19 Drug: NS 0.9% 1000 ml Route: IV; Rate: 1000 ml; Site: right antecubital; ss 15:10 Follow up: Response: No adverse reaction; IV Status: Completed infusion hb 15:32 Drug: NS 0.9% 1000 ml Route: IV; Rate: 1000 ml; Site: right antecubital; hb 16:30 Follow up: Response: No adverse reaction; IV Status: Completed infusion hb 15:33 Drug: Insulin Regular Human 10 units {Co-Signature: sg (Jake Tierney RN).} Route: IVP; hb Site: right antecubital; 16:55 Follow up: Response: No adverse reaction hb 18:05 Drug: NS 0.9% 1000 ml Route: IV; Rate: 200 ml/hr; Site: right forearm; hb 19:00 Follow up: Response: No adverse reaction; IV Status: Completed infusion hb 18:13 Not Given (per Dr. Hebert): Insulin Drip - (Insulin Regular Human 100 units, NS 0.9% 100 hb ml) IV at calculated rate continuous; Standard concentration 1unit/ml; Dose for DKA is 0.1 units/kg/hr 18:14 Not Given (per Dr. Hebert): NS 0.9% with KCl 20 mEq/L 1000 ml IV at 200 ml/hr continuous hb Point of Care Testing: Blood Glucose: 13:56 Blood Glucose: 324 mg/dL; tw2 Ranges: Critical Glucose Levels:Adult <50 mg/dl or >400 mg/dl <40 mg/dl or >180 mg/dl Disposition: 03/29 07:43 Co-signature as Attending Physician, Reece Hebert MD I agree with the assessment and rn plan of care. Disposition: 03/28/18 18:59 Patient has left against medical advice. Impression: Hyperglycemia, unspecified, Dehydration. - Patients states they are going to Home. - Condition is Stable. - Discharge Instructions: Dehydration, Adult, Hyperglycemia. Work release form form. Follow up: Private Physician; When: As needed; Reason: Recheck today's complaints, Re-evaluation by your physician. - Problem is new. - Symptoms have improved. Signatures: Dispatcher [employer] EDIL Hanny Farr, INSURANCE VERIFICATION SPECIALIST-C INSURANCE VERIFICATION SPECIALIST-CkJake Potts, RN RN sg Reece Hebert MD MD rn Smirch, Shelby, RN RN ss Lisa Fuchs RN RN Aspen Draper RN RN tw2 Jake Tierney RN sg Corrections: (The following items were deleted from the chart) 03/28 18:58 16:36 Hospitalization Ordered by Abhi Senior MD for Inpatient Admission. Preliminary rn diagnosis is Diabetes mellitus due to underlying condition with ketoacidosis. Bed requested for Intensive Care Unit. Status is Inpatient Admission. Condition is Stable. Problem is new. Symptoms are unchanged. UTI on Admission? No. kb 19:10 18:59 03/28/2018 18:59 Patients has left against medical advice. Impression: sg Hyperglycemia, unspecified; Dehydration. Patient states they are going to Home. Condition is Stable. Follow up: Private Physician; When: As needed; Reason: Recheck today's complaints, Re-evaluation by your physician. Problem is new. Symptoms have improved. rn
--- NOTE | 2018-03-28 16:38 | ER ---
Nurse's Notes [facility] Name: Enio Bradley Age: 27 yrs Sex: Male : 1990 Arrival Date: 03/28/2018 Time: 13:38 Bed 3 Private MD: Diagnosis: Hyperglycemia, unspecified;Dehydration Presentation: 03/28 13:55 Presenting complaint: Patient states: since about 3am i noticed my blood sugar was over tw2 500, it was 527 this morning, took 15 units then, i check it about 3 hours ago and it was 480, then i did another 15 units of insulin. Transition of care: patient was not received from another setting of care. Onset of symptoms was March 28, 2018. Risk Assessment: Do you want to hurt yourself or someone else? Patient reports no desire to harm self or others. Initial Sepsis Screen: Does the patient meet any 2 criteria? No. Patient's initial sepsis screen is negative. Does the patient have a suspected source of infection? No. Patient's initial sepsis screen is negative. Care prior to arrival: None. 13:55 Method Of Arrival: Ambulatory tw2 13:55 Acuity: JAMAL 3 tw2 Triage Assessment: 13:57 General: Smells of. tw2 Historical: - Allergies: 13:57 No Known Drug Allergies; tw2 - Home Meds: 13:57 Lantus Sub-Q 32 unit twice a day [Active]; Insulin: Regular Sub-Q qid per sliding scale tw2 [Active]; - PMHx: 13:57 ADD/ADHD; Diabetes - IDDM; tw2 - PSHx: 13:57 Ear Tubes; tw2 - Immunization history:: Adult Immunizations up to date. - Social history:: Smoking status: Patient uses tobacco products, chewing tobacco. - Ebola Screening: : Patient denies travel to an Ebola-affected area in the 21 days before illness onset. Screenin:22 Abuse screen: Denies threats or abuse. Denies injuries from another. Nutritional ss screening: No deficits noted. Tuberculosis screening: No symptoms or risk factors identified. Never had TB. Fall Risk None identified. Assessment: 14:19 General: Appears in no apparent distress. comfortable, Behavior is calm, cooperative. ss General: Smells of ketones. Pain: Complains of pain in chest Pain currently is 2 out of 10 on a pain scale. Quality of pain is described as aching, Pain began this AM Is continuous. Neuro: Level of Consciousness is awake, alert, obeys commands, Oriented to person, place, time, situation, Denies blurred vision dizziness, numbness. Cardiovascular: Capillary refill < 3 seconds is brisk in bilateral fingers. Respiratory: Airway is patent Respiratory effort is even, unlabored, Respiratory pattern is regular, symmetrical, Denies cough, shortness of breath labored breathing, pain with respiration, pain with cough, pain with movement. GI: Abdomen is non-distended, Patient currently denies abdominal pain, diarrhea, nausea, vomiting. : Reports urinary frequency. EENT: Nares are clear Oral mucosa is moist. Throat is clear. EENT: Reports excessive thirst. All symptoms began at 0300 this AM. Derm: Skin is intact, is healthy with good turgor, Skin is dry, Skin is pink, warm \T\ dry. normal. Musculoskeletal: Circulation, motion, and sensation intact. Range of motion: intact in all extremities, Swelling absent. 15:00 Reassessment: Patient appears in no apparent distress at this time. Patient and/or hb family updated on plan of care and expected duration. Pain level reassessed. Patient is alert, oriented x 3, equal unlabored respirations, skin warm/dry/pink. 16:00 Reassessment: Patient appears in no apparent distress at this time. Patient and/or hb family updated on plan of care and expected duration. Pain level reassessed. Patient is alert, oriented x 3, equal unlabored respirations, skin warm/dry/pink. 17:00 Reassessment: Patient appears in no apparent distress at this time. Patient and/or hb family updated on plan of care and expected duration. Pain level reassessed. Patient is alert, oriented x 3, equal unlabored respirations, skin warm/dry/pink. 18:00 Reassessment: Patient appears in no apparent distress at this time. Patient and/or hb family updated on plan of care and expected duration. Pain level reassessed. Patient is alert, oriented x 3, equal unlabored respirations, skin warm/dry/pink. 18:40 Reassessment: pt requesting ot be discharged, pt updated on POC and the need for sg admission, pt stated understanding, continues to request to be DC to home. 18:50 Reassessment: Patient is alert, oriented x 3, equal unlabored respirations, skin sg warm/dry/pink. notified pt requesting to be AMA, pt educated on AMA, stated understanding, pt signature obtained on AMA form, pt released Patient denies pain at this time. Patient states feeling better. Cardiovascular: Capillary refill is brisk in bilateral fingers. Respiratory: Airway is patent Respiratory effort is even, unlabored, Respiratory pattern is regular, symmetrical, Denies cough, shortness of breath labored breathing, pain with respiration, pain with cough, pain with movement. Derm: Skin is pink, warm \T\ dry. Vital Signs: 13:56 BP 124 / 80; Pulse 111; Resp 18; Temp 97.1(TE); Pulse Ox 100% on R/A; Pain 0/10; tw2 15:00 BP 116 / 72; Pulse 98; Resp 17; Pulse Ox 98% on R/A; Pain 0/10; hb 16:00 BP 102 / 74; Pulse 87; Resp 16; Pulse Ox 97% on R/A; hb 17:15 BP 101 / 64; Pulse 94; Resp 16; Pulse Ox 100% on R/A; Pain 0/10; hb 18:27 BP 99 / 62; Pulse 85; Resp 15; Pulse Ox 100% on R/A; hb ED Course: 13:38 Patient arrived in ED. as 13:56 Triage completed. tw2 13:56 Arm band placed on. tw2 13:58 [facility] F[facility]C [facility] kb 13:58 Reece Hebert MD is Attending Physician. kb 14:15 Inserted saline lock: 22 gauge in right antecubital area, using aseptic technique. ss Blood collected. 14:19 Urine collected: clean catch specimen, clear. dh3 14:22 Patient has correct armband on for positive identification. Placed in gown. Bed in low ss position. Call light in reach. Side rails up X 1. laboratory monitor on. Pulse ox on. NIBP on. 14:22 Patient maintains SpO2 saturation greater than 95% on room air. ss 14:32 EKG done, by line service technician. reviewed by Hanny PORTER. dt2 16:36 Abhi Senior MD is Hospitalizing Provider. kb 17:42 Lisa Fuchs, RN is Primary Nurse. hb 19:00 IV discontinued, intact, bleeding controlled, No redness/swelling at site. Pressure sg dressing applied. 19:00 No provider procedures requiring assistance completed. sg Administered Medications: 14:19 Drug: NS 0.9% 1000 ml Route: IV; Rate: 1000 ml; Site: right antecubital; ss 15:10 Follow up: Response: No adverse reaction; IV Status: Completed infusion hb 15:32 Drug: NS 0.9% 1000 ml Route: IV; Rate: 1000 ml; Site: right antecubital; hb 16:30 Follow up: Response: No adverse reaction; IV Status: Completed infusion hb 15:33 Drug: Insulin Regular Human 10 units {Co-Signature: kumar (Jake Tierney RN).} Route: IVP; hb Site: right antecubital; 16:55 Follow up: Response: No adverse reaction hb 18:05 Drug: NS 0.9% 1000 ml Route: IV; Rate: 200 ml/hr; Site: right forearm; hb 19:00 Follow up: Response: No adverse reaction; IV Status: Completed infusion hb 18:13 Not Given (per Dr. Hebert): Insulin Drip - (Insulin Regular Human 100 units, NS 0.9% 100 hb ml) IV at calculated rate continuous; Standard concentration 1unit/ml; Dose for DKA is 0.1 units/kg/hr 18:14 Not Given (per Dr. Hebert): NS 0.9% with KCl 20 mEq/L 1000 ml IV at 200 ml/hr continuous hb Point of Care Testing: Blood Glucose: 13:56 Blood Glucose: 324 mg/dL; tw2 Ranges: Outcome: 16:36 Decision to Hospitalize by Provider. kb 19:08 AMA AMA form signed sg 19:08 Condition: stable 19:08 Instructed on follow up and referral plans. the need for admit, safety practices, Demonstrated understanding of instructions. 19:10 Patient left the ED. sg Signatures: Hanny Farr FNP-C FNP-Jake Cameron RN RN sg Kerry Fry Shelby, RN RN Lisa Fuchs RN RN Aspen Draper RN RN tw2 Stormy King [facility] 2 Jake Tierney RN sg
[2018-03-28] MEDS ORDERED: INSULIN -REGULAR HUMAN 100 UNIT in NA CHLORIDE 0.9% 100 ML IV SCH (17:00)
[2018-03-28] MEDS ORDERED: ACETAMINOPHEN 500 MG TAB PO PRN (18:44)
[2018-03-28] MEDS ORDERED: ONDANSETRON 4 MG/2 ML VIAL IV PRN (18:44)
[2018-03-28 19:44] VITALS: TEMP 97.1
[2018-03-28 19:49] VITALS: O2SAT 100
[2018-03-28 19:50] VITALS: BP 99/62
== END 2018-03-28 19:10 | disposition left against medical advice (07) ==
LOC: ER 13:37 → ERHOLD 18:46 → UNDOADMIN 18:46
DX: E11.65 Type 2 diabetes mellitus with hyperglycemia (principal); E86.0 Dehydration; Z79.4 Long term (current) use of insulin; F17.220 Nicotine dependence, chewing tobacco, uncomplicated
CPT/HCPCS: 36415; 80048; 81003; 82010; 82805; 82962; 85025; 93005; 96361; 96374; 99285; J7030

== ENCOUNTER 2018-05-29 22:22 | Inpatient (IN) | payer SELFPAY ==
--- OUTSIDE RECORDS SUMMARY | 2018-05-29 22:39 | XMS REPORT | Continuity of Care Document ---
:1990 Author Organization Interface Problems Problem Status Onset Classification Date Comments Source Date Reported Discharge 11/26/2016 [facility] Diagnosis: 7 Cervical strain ACCIDENT Active [facility] 7 [place] DM (<span Resolved Problem 11/26/2016 [facility] ID="[id number]">Confirme d</span>) Medications Medication Details Route Status Patient Ordering Order Source Instructions Provider Date Cyclobenzaprine 10 mg, PO, Active hydrochloride 10 TID, PRN 017 [place] [facility] Oral Tablet Muscle [Flexeril] Spasm, X 10 day, # 30 tab, 0 Refill(s) Motrin 800 mg oral 800 mg=1 Active tablet tab, PO, 017 [place] TID, X 7 day, # 21 tab, 0 Refill(s) Allergies, Adverse Reactions, Alerts Substance Category Reaction Severity Reaction Status Date Comments Source type Reported Immunizations Immunization Date Given Site Status Last Updated Comments Source Results Order Results Value Reference Date Interpretation Comments Source Name Range Vital Signs Vital Sign Value Date Comments Source Temperature Oral (F) 98.2 F 11/24/2016 [facility] Heart Rate 88 11/24/2016 [facility] Respitory Rate 16 11/24/2016 [facility] Systolic (mm Hg) 117 11/24/2016 [facility] Diastolic (mm Hg) 75 11/24/2016 [facility] BMI Calculated 26.6 11/24/2016 [facility] Height 177.8 cm 11/24/2016 [facility] Weight 84.091 11/24/2016 [facility] Respitory Rate 18 11/24/2016 [facility] Heart Rate 91 11/24/2016 [facility] Systolic (mm Hg) 118 11/24/2016 [facility] Diastolic (mm Hg) 76 11/24/2016 [facility] Temperature Oral (F) 98.1 F 11/24/2016 [facility] Encounters Location Location Encounter Encounter Reason Attending ADM DC Status Source Details Type Number For Provider Date Date Visit [facility] Emergency [id number] [place] 11/24 11/24 MAGAN [place] /2016 [facility] Procedures Procedure Code Date Perfomer Comments Source Removal of [id number] MAGAN [place] silastic tubes from ear
[2018-05-29 23:14] LABS: Absolute Lymphocytes (CBC) 1.6 K/uL (0.7-4.9); Absolute Monocytes 0.4 K/uL (0.1-1.3); Absolute Neutrophil 9.1 K/uL (1.8-8.0); Basophils % 0.3 % (0-1.3); Eosinophils % 0.2 % (0-4.4); Hematocrit 47.2 % (39.6-49.0); Lymphocytes % 14.4 % (15.3-44.8); MPV 7.8 fL (7.6-11.3); Monocytes % 3.4 % (3.3-12.3); RBC Red Blood Cell Count 5.06 M/uL (4.33-5.43)
[2018-05-29] MEDS ORDERED: ONDANSETRON 4 MG/2 ML VIAL ONE ×2 (23:36→23:41)
[2018-05-29] MEDS ORDERED: NA CHLORIDE 0.9% 1,000 ML ONE ×2 (23:36→23:41)
[2018-05-29 23:38] LABS: Arterial Blood Carboxyhemoglob 1.9 % (0-1.5); Blood Gas Oxyhemoglobin 94.4 % (94-97); Blood O2 Saturation 97.3 % (92-98.5)
[2018-05-29 23:40] LABS: BUN Blood Urea Nitrogen 32 mg/dL (7-18); Bicarbonate 16 mmol/L (21-32); Potassium 4.6 mmol/L (3.5-5.1); Sodium Level 137 mmol/L (136-145)
[2018-05-29 23:42] LABS: Glucose Level 613 mg/dL (74-106)
--- NOTE | 2018-05-29 23:47 | EDPHYS ---
Physician Documentation [facility] Name: Enio Bradley Age: 27 yrs Sex: Male : 1990 Arrival Date: 05/29/2018 Time: 22:25 Bed 13 Private MD: ED Physician Sabas Velazco HPI: 05/30 00:20 This 27 yrs old Male presents to ER via Ambulatory with complaints of High kb Blood Sugar. 00:20 The patient presents with abdominal pain that is diffuse. Onset: The symptoms/episode kb began/occurred this morning. The symptoms do not radiate. Associated signs and symptoms: Pertinent positives: nausea and vomiting, Pertinent negatives: anorexia, blood in stools, chest pain, constipation, diarrhea, dysuria, fever, headache, hematuria, palpitations, shortness of breath, testicular pain, vomiting blood. The symptoms are described as constant. Modifying factors: The symptoms are alleviated by nothing, the symptoms are aggravated by nothing. Severity of pain: At its worst the pain was moderate in the emergency department the pain is unchanged. The patient has experienced similar episodes in the past, a few times. The patient has not recently seen a physician. Pt states he thinks he ate something bad that made him have abd pain, nausea and vomiting. Now thinks he is in DKA because his BGL has been reading high all day. Historical: - Allergies: 05/29 23:12 No Known Allergies; fc - Home Meds: 23:12 Lantus Sub-Q 35 unit twice a day [Active]; Humalog 100 unit/mL Sub-Q crtg sliding scale fc with meals [Active]; - PMHx: 23:12 ADD/ADHD; Diabetes - IDDM; fc - PSHx: 23:12 None; fc - Immunization history:: Last tetanus immunization: unknown, Flu vaccine is not up to date. - Social history:: Smoking status: Patient/guardian denies using tobacco, Patient uses alcohol, occasionally. - Ebola Screening: : Patient negative for fever greater than or equal to 101.5 degrees Fahrenheit, and additional compatible Ebola Virus Disease symptoms Patient denies exposure to infectious person Patient denies travel to an Ebola-affected area in the 21 days before illness onset. ROS: 23:41 Constitutional: Negative for fever, chills, and weight loss, ENT: Negative for injury, kb pain, and discharge, Neck: Negative for injury, pain, and swelling, Respiratory: Negative for shortness of breath, cough, wheezing, and pleuritic chest pain, Back: Negative for injury and pain, : Negative for injury, bleeding, discharge, and swelling, MS/Extremity: Negative for injury and deformity, Skin: Negative for injury, rash, and discoloration, Neuro: Negative for headache, weakness, numbness, tingling, and seizure. 23:41 Cardiovascular: Positive for chest pain, Negative for edema, orthopnea, palpitations, paroxysmal nocturnal dyspnea. 23:41 Abdomen/GI: Positive for abdominal pain, nausea and vomiting. 23:41 Endocrine: Positive for hyperglycemia. Exam: 05/30 00:20 Head/Face: Normocephalic, atraumatic. ENT: Nares patent. No nasal discharge, no kb septal abnormalities noted. Tympanic membranes are normal and external auditory canals are clear. Oropharynx with no redness, swelling, or masses, exudates, or evidence of obstruction, uvula midline. Mucous membranes moist. Neck: Trachea midline, no thyromegaly or masses palpated, and no cervical lymphadenopathy. Supple, full range of motion without nuchal rigidity, or vertebral point tenderness. No Meningismus. Chest/axilla: Normal chest wall appearance and motion. Nontender with no deformity. No lesions are appreciated. Cardiovascular: Regular rate and rhythm with a normal S1 and S2. No gallops, murmurs, or rubs. Normal PMI, no JVD. No pulse deficits. Respiratory: Lungs have equal breath sounds bilaterally, clear to auscultation and percussion. No rales, rhonchi or wheezes noted. No increased work of breathing, no retractions or nasal flaring. Abdomen/GI: Soft, non-tender, with normal bowel sounds. No distension or tympany. No guarding or rebound. No evidence of tenderness throughout. Back: No spinal tenderness. No costovertebral tenderness. Full range of motion. Skin: Warm, dry with normal turgor. Normal color with no rashes, no lesions, and no evidence of cellulitis. MS/ Extremity: Pulses equal, no cyanosis. Neurovascular intact. Full, normal range of motion. Neuro: Awake and alert, GCS 15, oriented to person, place, time, and situation. Cranial nerves II-XII grossly intact. Motor strength 5/5 in all extremities. Sensory grossly intact. Cerebellar exam normal. Normal gait. Constitutional: The patient appears alert, awake, obviously ill, uncomfortable. Vital Signs: 05/29 22:47 BP 124 / 81; Pulse 117; Resp 18 S; Temp 98.1(O); Pulse Ox 100% on R/A; Weight 81.65 kg jd3 (R); Height 5 ft. 10 in. (177.80 cm) (R); Pain 7/10; 05/30 00:41 BP 112 / 56; Pulse 109; Resp 16; Pulse Ox 100% on R/A; jb4 01:00 BP 119 / 73; Pulse 118; Resp 16; Pulse Ox 100% on R/A; jb4 01:45 BP 107 / 75; Pulse 113; Resp 18; Pulse Ox 100% on R/A; jb4 02 22:47 Body Mass Index 25.83 (81.65 kg, 177.80 cm) jd3 MDM: 05/29 22:51 Patient medically screened. kb 23:42 Data reviewed: vital signs, nurses notes. Data interpreted: Pulse oximetry: on room air kb is 100 %. Interpretation: normal. Counseling: I had a detailed discussion with the patient and/or guardian regarding: the historical points, exam findings, and any diagnostic results supporting the discharge/admit diagnosis, lab results, the need for further work-up and treatment in the hospital. 23:45 Physician consultation: Elena Tom MD was contacted at 23:45, regarding admission, kb to the ICU, patient's condition, and will see patient in ED, shortly. 05/29 22:56 Order name: CBC with Diff; Complete Time: 23:30 kb 05/29 22:56 Order name: Basic Metabolic Panel; Complete Time: 23:43 kb 05/29 22:56 Order name: Acetone, Serum; Complete Time: 23:43 kb 05/29 22:56 Order name: ABG; Complete Time: 00:01 kb 05/30 00:05 Order name: Urine Dipstick--Ancillary (enter results); Complete Time: 00:53 ag4 05/30 01:51 Order name: Basic Metabolic Panel; Complete Time: 01:52 EDMS 05/29 22:56 Order name: Urine Dipstick-Ancillary (obtain specimen); Complete Time: 00:02 kb 05/29 22:56 Order name: EKG; Complete Time: 22:57 kb 05/29 22:56 Order name: EKG - Nurse/Tech; Complete Time: 23:27 kb Administered Medications: 23:30 Drug: NS 0.9% 1000 ml Route: IV; Rate: 1000 ml; Site: left wrist; jd3 05/30 01:30 Follow up: Response: No adverse reaction; IV Status: Completed infusion jb4 05/29 23:30 Drug: Zofran 4 mg Route: IVP; Site: left wrist; jd3 05/30 00:47 Follow up: Response: No adverse reaction; Nausea is decreased jb4 00:22 Drug: Insulin Drip - (Insulin Regular Human 100 units, NS 0.9% 100 ml) {Co-Signature: [facility] (An Bellamy RN).} Route: IV; Rate: calculated rate; Site: left wrist; 02:12 Follow up: Response: No adverse reaction; IV Status: Infusion continued upon admission jb4 01:00 Drug: Zofran 4 mg Route: IVP; Site: left wrist; [facility] 02:12 Follow up: Response: No adverse reaction; Nausea is decreased [facility] Point of Care Testing: Blood Glucose: 05/29 22:58 Blood Glucose: High (>450 mg/dL); 05/30 01:10 Blood Glucose: High (>450 mg/dL); [facility] Ranges: Critical Glucose Levels:Adult <50 mg/dl or >400 mg/dl <40 mg/dl or >180 mg/dl Disposition: 12:08 Co-signature as Attending Physician, Sabas Velazco MD I agree with the assessment and [facility] plan of care. Disposition: 05/29/18 23:46 Hospitalization ordered by Elena Tom for Inpatient Admission. Preliminary diagnosis is Diabetes mellitus due to underlying condition with ketoacidosis. - Bed requested for Intensive Care Unit. - Status is Inpatient Admission. jb4 - Condition is Fair. - Problem is new. - Symptoms are unchanged. UTI on Admission? No Signatures: Dispatcher [employer] EDHanny Juarez FNP-C FNP-Ckb Webb, Martha, RN RN mw Anderson, Corey, MD MD cha Chretien, Felicia, RN RN fc Bryson, James, RN RN [facility] Manoj Jasso RN RN jd3 An Bellamy RN fc Corrections: (The following items were deleted from the chart) 00:05/29 23:46 Hospitalization Ordered by Elena Tom MD for Inpatient Admission. mw Preliminary diagnosis is Diabetes mellitus due to underlying condition with ketoacidosis. Bed requested for Intensive Care Unit. Status is Inpatient Admission. Condition is Fair. Problem is new. Symptoms are unchanged. UTI on Admission? No. kb 05/30 02:13 00:05/29/2018 23:46 Hospitalization Ordered by Elena Tom MD for Inpatient jb4 Admission. Preliminary diagnosis is Diabetes mellitus due to underlying condition with ketoacidosis. Bed requested for Intensive Care Unit. Status is Inpatient Admission. Condition is Fair. Problem is new. Symptoms are unchanged. UTI on Admission? No. mw
--- NOTE | 2018-05-29 23:47 | ER ---
Nurse's Notes [facility] Name: Enio Bradley Age: 27 yrs Sex: Male : 1990 Arrival Date: 05/29/2018 Time: 22:25 Bed 13 Private MD: Diagnosis: Diabetes mellitus due to underlying condition with ketoacidosis Presentation: 05/29 22:46 Presenting complaint: Patient states: "i am having some high blood sugar. Maybe going jd3 into DKA.". Transition of care: patient was not received from another setting of care. Onset of symptoms was May 29, 2018. Risk Assessment: Do you want to hurt yourself or someone else? Patient reports no desire to harm self or others. Initial Sepsis Screen: Does the patient meet any 2 criteria? No. Patient's initial sepsis screen is negative. Does the patient have a suspected source of infection? No. Patient's initial sepsis screen is negative. Care prior to arrival: None. 22:46 Method Of Arrival: Ambulatory jd3 22:46 Acuity: JAMAL 2 jd3 Historical: - Allergies: 23:12 No Known Allergies; fc - Home Meds: 23:12 Lantus Sub-Q 35 unit twice a day [Active]; Humalog 100 unit/mL Sub-Q crtg sliding scale fc with meals [Active]; - PMHx: 23:12 ADD/ADHD; Diabetes - IDDM; fc - PSHx: 23:12 None; fc - Immunization history:: Last tetanus immunization: unknown, Flu vaccine is not up to date. - Social history:: Smoking status: Patient/guardian denies using tobacco, Patient uses alcohol, occasionally. - Ebola Screening: : Patient negative for fever greater than or equal to 101.5 degrees Fahrenheit, and additional compatible Ebola Virus Disease symptoms Patient denies exposure to infectious person Patient denies travel to an Ebola-affected area in the 21 days before illness onset. Screenin:50 Abuse screen: Denies threats or abuse. Nutritional screening: No deficits noted. fc Tuberculosis screening: No symptoms or risk factors identified. Fall Risk None identified. Assessment: 22:40 General: Appears in no apparent distress. uncomfortable, Behavior is calm, cooperative, jb4 appropriate for age. Pain: Denies pain. Neuro: Level of Consciousness is awake, alert, obeys commands, Oriented to person, place, time, situation. Cardiovascular: Patient's skin is warm and dry. Respiratory: Airway is patent Respiratory effort is even, unlabored, Respiratory pattern is regular, symmetrical, Breath sounds are clear bilaterally. GI: Pt is actively vomiting bile. : No signs and/or symptoms were reported regarding the genitourinary system. EENT: No signs and/or symptoms were reported regarding the EENT system. Derm: Skin is intact, Skin is pink, warm \\T\\ dry. Musculoskeletal: Circulation, motion, and sensation intact. 05/30 00:00 Reassessment: Patient appears in no apparent distress at this time. Patient and/or jb4 family updated on plan of care and expected duration. Pain level reassessed. Patient is alert, oriented x 3, equal unlabored respirations, skin warm/dry/pink. 01:00 Reassessment: Patient appears in no apparent distress at this time. Patient and/or jb4 family updated on plan of care and expected duration. Pain level reassessed. Patient is alert, oriented x 3, equal unlabored respirations, skin warm/dry/pink. 02:00 Reassessment: Patient appears in no apparent distress at this time. Patient and/or jb4 family updated on plan of care and expected duration. Pain level reassessed. Patient is alert, oriented x 3, equal unlabored respirations, skin warm/dry/pink. Vital Signs: 05/29 22:47 BP 124 / 81; Pulse 117; Resp 18 S; Temp 98.1(O); Pulse Ox 100% on R/A; Weight 81.65 kg jd3 (R); Height 5 ft. 10 in. (177.80 cm) (R); Pain 7/10; 05/30 00:41 BP 112 / 56; Pulse 109; Resp 16; Pulse Ox 100% on R/A; jb4 01:00 BP 119 / 73; Pulse 118; Resp 16; Pulse Ox 100% on R/A; jb4 01:45 BP 107 / 75; Pulse 113; Resp 18; Pulse Ox 100% on R/A; jb4 05/29 22:47 Body Mass Index 25.83 (81.65 kg, 177.80 cm) jd3 ED Course: 05/29 22:25 Patient arrived in ED. es 22:47 Triage completed. jd3 22:50 Arm band placed on Patient placed in an exam room, on a stretcher. fc 22:50 Patient has correct armband on for positive identification. Placed in gown. Bed in low fc position. Call light in reach. 22:51 Hanny Farr FNP-C [facility]. kb 22:51 Sabas Velazco MD is Attending Physician. kb 22:57 Initial lab(s) drawn, by me, sent to lab. Missed attempt(s): 20 gauge in left fc antecubital area. 23:00 Missed attempt(s): 20 gauge in right antecubital area. fc 23:08 Jermaine Wolf, YVONNE is Primary Nurse. jb4 23:24 Inserted saline lock: 24 gauge in left wrist, using aseptic technique. Missed mb4 attempt(s): 20 gauge in right forearm. Bleeding controlled, band aid applied, catheter tip intact. 23:46 Elena Tom MD is Hospitalizing Provider. kb 05/30 00:48 Inserted 18 gauge 8 cm midline to left upper arm brachial vein on second attempt. Line fc with good blood return and flushes well. Pt tolerated procedure well. 01:45 No provider procedures requiring assistance completed. Patient admitted, IV remains in jb4 place. 01:50 Notified Nurse Practitioner and/or Physician Band Saw Operator [employer] of a critical lab result(s), fc glucose of 548, bicarb of 12. Administered Medications: 05/29 23:30 Drug: NS 0.9% 1000 ml Route: IV; Rate: 1000 ml; Site: left wrist; jd3 02 01:30 Follow up: Response: No adverse reaction; IV Status: Completed infusion [facility] 05/29 23:30 Drug: Zofran 4 mg Route: IVP; Site: left wrist; jd3 05/30 00:47 Follow up: Response: No adverse reaction; Nausea is decreased jb4 00:22 Drug: Insulin Drip - (Insulin Regular Human 100 units, NS 0.9% 100 ml) {Co-Signature: [facility] (An Bellamy RN).} Route: IV; Rate: calculated rate; Site: left wrist; 02:12 Follow up: Response: No adverse reaction; IV Status: Infusion continued upon admission jb4 01:00 Drug: Zofran 4 mg Route: IVP; Site: left wrist; jb4 02:12 Follow up: Response: No adverse reaction; Nausea is decreased jb4 Point of Care Testing: Blood Glucose: 05/29 22:58 Blood Glucose: High (>450 mg/dL); fc 05/30 01:10 Blood Glucose: High (>450 mg/dL); jb4 Ranges: Outcome: 05/29 23:46 Decision to Hospitalize by Provider. kb 05/30 01:45 Admitted to ICU accompanied by nurse, via stretcher, room 8, on monitor, with chart, jb4 Report called to Wilmar Clayton RN Condition: stable Discharge instructions given to patient, Instructed on the need for admit, Demonstrated understanding of instructions. 02:13 Patient left the ED. jb4 Signatures: Hanny Farr, INSURANCE FOLLOW UP SPECIALIST-C INSURANCE FOLLOW UP SPECIALIST-Stormy Soto Felicia RN RN Jermaine Wolf RN RN jbManoj Tim RN RN Yenni Jimenez mb4 An Bellamy RN
--- NOTE | 2018-05-30 00:17 | P.HP ---
Certification for Inpatient Patient admitted to: Inpatient With expected LOS: >2 Midnights Practitioner: I am a practitioner with admitting privileges, knowledge of patient current condition, hospital course, and medical plan of care. Services: Services provided to patient in accordance with Admission requirements found in Title 42 Section 412.3 of the Code of Federal Regulations Patient History Date of Service: 05/30/18 Reason for admission: DKA History of Present Illness: Mr Bradley is a 27 years old male with history of DM I, ADD, who statest that this morning after ate a pizza, started with generalized abdominal pain, 7/10 of intensity, associated with nausea and vomiting. He denied any fever or chills. He has not missed any insulin dose. He was not able to tolerate food or liquids due to vomiting. Lab work remarkable for anion gap metabolic acidosis ( GAP 22) secondary to DKA. Allergies No Known Drug Allergies Allergy (Verified 09/02/16 14:03) Unknown No Known Allergies Allergy (Uncoded 09/02/16 14:03) Unknown Home medications list reviewed: Yes Home Medications: Insulin Aspart [Novolog Flexpen] See Protocol SQ ACHS PRN 04/24/16 Insulin Glargine Human [Lantus*] 20 units SQ DAILY AT SUPPER ml 09/12/16 Insulin Glargine Human [Lantus*] 35 units SQ DAILY WITH BREAKFAST #10 ml Metoprolol Tartrate [Lopressor*] 12.5 mg PO BID 6AM 6PM #30 tab 09/12/16 Pantoprazole [Protonix Tab*] 40 mg PO DAILY #30 tab 09/12/16 - Past Medical/Surgical History Diabetic: Yes -: Diabetes mellitus type 1 -: ADD -: tubes in ears Psychosocial/ Personal History: Single, 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 Patient is from the area. 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 - Family History Mother -: Cancer - Social History Smoking Status: Never smoker Alcohol use: Yes CD- Drugs: No Caffeine use: Yes Review of Systems 10-point ROS is otherwise unremarkable Physical Examination - Physical Exam General: Alert, In no apparent distress HEENT: Atraumatic, PERRLA, Mucous membr. moist/pink, EOMI, Sclerae nonicteric Neck: Supple, 2+ carotid pulse no bruit, No LAD, Without JVD or thyroid abnormality Respiratory: Clear to auscultation bilaterally, Normal air movement Cardiovascular: Regular rate/rhythm, Normal S1 S2 Gastrointestinal: Normal bowel sounds, Tenderness (diffuse) Musculoskeletal: No tenderness Integumentary: No rashes Neurological: Normal speech, Normal strength at 5/5 x4 extr, Normal tone, Normal affect Lymphatics: No axilla or inguinal lymphadenopathy - Studies Laboratory Data (last 24 hrs) 05/29/18 22:57: Sodium 137, Potassium 4.6, BUN 32 H, Creatinine 1.83 H, Glucose 613 H* 05/29/18 22:57: WBC 11.2 H, Hgb 16.3, Hct 47.2, Plt Count 294 Assessment and Plan - Problems (Diagnosis) (1) DKA (diabetic ketoacidoses) Onset Date: 09/05/16 Current Visit: No Status: Acute Qualifiers: Diabetes mellitus type: type 1 Diabetes mellitus complication detail: without coma Qualified Code(s): E10.10 - Type 1 diabetes mellitus with ketoacidosis without coma (2) DKA, type 1 Onset Date: 06/03/15 Current Visit: No Status: Acute Qualifiers: Diabetes mellitus complication detail: without coma Qualified Code(s): E10.10 - Type 1 diabetes mellitus with ketoacidosis without coma - Plan Will admit the patient to ICU. Will order insulin and IV fluids per DKA protocol. Check Hgba1c. Replace electrolytes as needed per protocol. - Advance Directives Does patient have a Living Will: No Does patient have a Durable POA for Healthcare: No - Code Status/Comfort Care Code Status Assessed: Yes Code Status: Full Code
[2018-05-30] MEDS ORDERED: NA CHLORIDE 0.9% 100 ML IV ONE (00:21)
[2018-05-30] MEDS ORDERED: INSULIN -REGULAR HUMAN 50 UNIT/0.5 ML ML ONE (00:21)
[2018-05-30] MEDS ORDERED: INSULIN -REGULAR HUMAN 100 UNIT in NA CHLORIDE 0.9% 100 ML IV SCH (00:38)
[2018-05-30] MEDS ORDERED: NA CHLORIDE 0.9% 1,000 ML IV ONE (00:38)
[2018-05-30 00:52] LABS: Urine Blood 1+ (NEG); Urine Glucose 2+ (NEG); Urine Protein TRACE (NEG); Urine Specific Gravity 1.015 (1.005-1.030)
[2018-05-30] MEDS: D5 0.45 NS 1,000 ML IV SCH ×3 (01:00→16:09)
[2018-05-30] MEDS ORDERED: ONDANSETRON 4 MG/2 ML VIAL ONE (01:10)
[2018-05-30 01:50] LABS: Potassium 4.6 mmol/L (3.5-5.1)
[2018-05-30] MEDS: NACHLORIDE 0.45% 1,000 ML IV SCH ×4 (02:15→13:00)
[2018-05-30 04:09] VITALS: O2SAT 98
[2018-05-30] MEDS: ONDANSETRON 4 MG/2 ML VIAL IV PRN ×2 (05:14→11:49)
[2018-05-30 05:35] LABS: Potassium 4.1 mmol/L (3.5-5.1)
[2018-05-30 05:58] LABS: Magnesium 2.3 mg/dL (1.8-2.4); Phosphorus 2.9 mg/dL (2.5-4.9)
--- NOTE | 2018-05-30 06:59 | EKG ---
Test Date: 2018-05-29 Test Time: 23:30:01 Prospecting Observer: SAYDA MEASUREMENT RESULTS: Intervals: Rate: 110 WA: 192 QRSD: 70 QT: 330 QTc: 446 [place]: P: 53 WA: 192 QRS: 43 T: 23 INTERPRETIVE STATEMENTS: Sinus tachycardia Possible Left atrial enlargement Anteroseptal infarct, age undetermined Abnormal ECG Compared to ECG 03/28/2018 14:28:08 Myocardial infarct finding now present Electronically Signed On 05-30-18 06:51:35 DISTANCE LEARNING ADMINISTRATOR by Chong Shoemaker
[2018-05-30] MEDS ORDERED: PROMETHAZINE 25 MG/ML VIAL IV PRN (07:10)
[2018-05-30] MEDS ORDERED: INFLUENZA VACCINE (for 3y+) 0.5 ML DOSE IMVAC ONE (08:00)
[2018-05-30] MEDS: ENOXAPARIN 40 MG/0.4 ML SQ SCH (09:10)
[2018-05-30 14:37] LABS: BUN Blood Urea Nitrogen 22 mg/dL (7-18); Bicarbonate 25 mmol/L (21-32); Glucose Level 196 mg/dL (74-106); Potassium 3.8 mmol/L (3.5-5.1); Sodium Level 150 mmol/L (136-145)
--- NOTE | 2018-05-30 15:51 | PN ---
Date of Progress Note: 05/30/2018 Subjective: The patient is seen and examined. Chart reviewed and case discussed with RN. The patie nt is still having significant amount of nausea and vomiting. The patient states that he did not mis s any of his doses. Thinks that this started with eating some pizza that did not settle well with hi m. Medications: List reviewed. Physical Examination: Vital Signs: Temperature 98, heart rate 113, blood pressure 188/72, respirations 19, and O2 of 100% on room air. General: Awake, alert, and oriented x3, ill-appearing male. CV: S1 and S2. Sinus tachycardia. Peripheral pulses present. No murmurs. Respiratory: Moving air well bilaterally. No wheezing or stridor. Gastrointestinal: Abdomen is soft. Mild tenderness to palpation. No guarding or rigidity. Bowel s ounds hypoactive. Extremities: No clubbing, cyanosis, or edema. No calf tenderness. Neurologic: Cranial nerves 2 through 12 intact grossly. No focal neurological deficit. Speech is n ormal. Laboratory Data: Sodium 149, potassium 4, chloride 115, CO2 of 23, BUN 26, creatinine 1.39, glucose 168, and calcium 8.5. Assessment And Plan: A 27-year-old male with, 1.Diabetic ketoacidosis without coma. The patient's gap is now closed, is currently 11, the patient is switched over to D5 half NS. We will continue IV fluids and IV insulin for now. The patient is currently very nauseated, unable to tolerate any p.o. 2.Diabetes mellitus type 1 with ketoacidosis without coma, insulin requiring. We will switch the pa tient to subcutaneous insulin once his nausea and vomiting have improved. 3.Hypernatremia, sodium level is at 149. Continue to monitor. The patient is on D5 half NS. 4.Acute kidney injury. Creatinine is elevated at 1.39, improved since admission, likely due to prer enal azotemia. We will continue to monitor. Avoid NSAIDs. 5.Gastrointestinal and deep venous thrombosis prophylaxis addressed. PLAN: We will switch over to Phenergan. Continue IV insulin and IV fluids. The patient will need c ontinued monitoring in the ICU setting. SA/MODL Voice ID: [id number] Report ID: [id number]
[2018-05-30] MEDS ORDERED: D5W 1,000 ML IV SCH (16:00)
[2018-05-30] MEDS: Ringers Lactate 1,000 ML IV SCH ×2 (16:00→20:23)
--- NOTE | 2018-05-30 17:01 | RAD REPORT ---
EXAM DESCRIPTION: Lucio Single View05/30/2018 4:55 pm CLINICAL HISTORY: Chest pain COMPARISON: 2012 FINDINGS: The lungs appear clear of acute infiltrate. The heart is normal size IMPRESSION: No acute abnormalities displayed
[2018-05-30 18:23] LABS: BUN Blood Urea Nitrogen 18 mg/dL (7-18); Bicarbonate 25 mmol/L (21-32); Glucose Level 242 mg/dL (74-106); Potassium 3.8 mmol/L (3.5-5.1); Sodium Level 147 mmol/L (136-145)
[2018-05-31 05:20] LABS: Absolute Lymphocytes (CBC) 2.2 K/uL (0.7-4.9); Absolute Monocytes 0.4 K/uL (0.1-1.3); Absolute Neutrophil 4.8 K/uL (1.8-8.0); Basophils % 0.3 % (0-1.3); Eosinophils % 1.3 % (0-4.4); Hematocrit 35.4 % (39.6-49.0); Lymphocytes % 29.1 % (15.3-44.8); MPV 7.2 fL (7.6-11.3); Monocytes % 5.7 % (3.3-12.3); RBC Red Blood Cell Count 3.96 M/uL (4.33-5.43)
[2018-05-31 05:33] LABS: Magnesium 1.8 mg/dL (1.8-2.4); Phosphorus 2.3 mg/dL (2.5-4.9); Potassium 3.1 mmol/L (3.5-5.1)
[2018-05-31 05:45] VITALS: BMI 24.3
[2018-05-31] MEDS: Ringers Lactate 1,000 ML IV SCH (07:21)
[2018-05-31] MEDS ORDERED: POTASSIUM 25 MEQ EFFERV TAB PO ONE (07:31)
[2018-05-31] MEDS ORDERED: KCL 20 MEQ/100 mL IVPB 20 MEQ/100 ML BAG IV SCH (08:00)
[2018-05-31] MEDS ORDERED: MAGNESIUM SULFATE 1 gm IVPB 1 GM/100 ML BAG IV ONE (08:00)
[2018-05-31] MEDS ORDERED: POTASSIUM PHOS IN 0.9 % NACL 15 MMOL/250 ML BAG IV ONE (08:00)
[2018-05-31] MEDS: ENOXAPARIN 40 MG/0.4 ML SQ SCH (08:39)
[2018-05-31] MEDS ORDERED: INSULIN GLARGINE 100 UNITS/ML SQ SCH (09:00)
[2018-05-31] MEDS: INSULIN -REGULAR HUMAN 50 UNIT/0.5 ML ML SQ SCH ×3 (10:32→16:20)
[2018-05-31] MEDS ORDERED: INSULIN -REGULAR HUMAN 50 UNIT/0.5 ML ML SQ SCH (11:30)
[2018-05-31] MEDS ORDERED: GLUCAGON 1 MG/VIAL IM PRN (16:04)
[2018-05-31] MEDS ORDERED: D50W 25 GM/50 ML SYRINGE IV PRN (16:04)
[2018-05-31] MEDS ORDERED: POTASSIUM CL SA 10 MEQ TAB PO ONE (17:00)
[2018-05-31 17:36] VITALS: BP 138/89; TEMP 96.9
--- NOTE | 2018-05-31 17:37 | PN ---
Date of Progress Note: 05/31/2018 Subjective: The patient is seen and examined. Chart reviewed and case discussed with RN. The patie nt's nausea and vomiting have improved significantly, able to tolerate his diet, now off IV insulin. Medications: List reviewed. Physical Examination: Vital Signs: Temperature 98, heart rate 105, blood pressure 101/75, respirations 20, and O2 of 98% o n room air. General: Awake, alert, and oriented x3. No acute distress. CV: S1 and S2. Sinus tachycardia. No murmurs. Respiratory: Moving air well bilaterally. No wheezing. Gastrointestinal: Abdomen is soft, nontender, and nondistended. Positive bowel sounds. Extremities: No clubbing, cyanosis, or edema. Neurologic: Nonfocal. Laboratory Data: Sodium 144, potassium 3.1, chloride 110, CO2 of 29, BUN 11, creatinine 1.12, glucos e 193, calcium 7.9, phosphorus 2.3, and magnesium 1.8. WBC 7.6, H and H of 12.7 and 35.4, platelets 201. Chest x-ray from 05/30/2018 shows no acute abnormalities. UA negative. Assessment And Plan: A 27-year-old male with, 1.Diabetic ketoacidosis without coma. The patient's anion gap is now closed, has been switched over to subcutaneous insulin, tolerating his diet well. Blood sugars did spike after discontinuing IV in sulin in the 300s. We will continue to monitor for now. We will adjust to moderate sliding scale. 2.Diabetes mellitus type 1 with ketoacidosis without coma, insulin requiring. We will continue michelle toring blood glucose levels, adjust insulin dose. 3.Hypernatremia, corrected. The patient is currently on LR. 4.Acute kidney injury, resolved. Kidney functions are back to normal, likely secondary to prerenal azotemia. 5.Gastrointestinal and deep venous thrombosis prophylaxis addressed. 6.Hypokalemia. PLAN: We will step down from the ICU. Continue to monitor blood sugar levels throughout the day, re place potassium and phosphorus. SA/MODL Voice ID: [id number] Report ID: [id number]
--- NOTE | 2018-06-01 03:35 | DS ---
Date of Discharge: 05/31/2018 Discharge Diagnoses: 1.Diabetic ketoacidosis without coma. 2.Diabetes mellitus type 1 with ketoacidosis. 3.Hypernatremia. 4.Acute kidney injury, resolved. 5.Hypokalemia, replaced. Hospital Course: The patient is a 27-year-old male with a past medical history of type 1 diabetes an d ADD who came into the hospital with DKA, nausea, vomiting, abdominal discomfort. The patient was i n elevated gap. He was positive for ketones. He was started on IV insulin and placed on DKA protoco l. The patient required IV insulin throughout the following day. His gap however did close. He did have some hypernatremia as well, which was corrected. Kidney function was also elevated and improve d with IV fluids and resuscitation. The patient's electrolytes were also corrected. His urine sampl e was negative for UTI. Chest x-ray was also clear. He was able to tolerate a diet and his nausea a nd vomiting resolved. The patient was counseled extensively regarding his diabetes, voiced mayoan lópez. He does not see a primary care physician and was encouraged to see a primary care physician wi thin the area. List of PCPs was provided. The patient was then doing well, able to tolerate his t. His blood sugars were in the low 200s, which is better than baseline for him. The patient was th en discharged home in a stable condition. Activity: As tolerated. Medications: As per medication reconciliation list. Followup: Follow up with primary care physician in 2 to 3 days. Return to ER for worsening conditio n. Diet: Diabetic diet. Physical Examination: For physical exam findings, please see progress note dictated on the day of discharge. Total time spent discharging the patient was 31 minutes. /AMAURI Voice ID: [id number] Report ID: [id number]
== END 2018-05-31 18:15 | disposition home or self-care (01) | DRG 638 ==
LOC: ER 22:22 → ERHOLD 05-30 00:34 → 3RD-ICU 05-30 01:32 → 4TH 05-31 12:35
PROVIDERS: ADMIT Internal Medicine; ATTEND Family Medicine
DX: E10.10 Type 1 diabetes mellitus with ketoacidosis without coma (principal); E87.0 Hyperosmolality and hypernatremia; N17.9 Acute kidney failure, unspecified; E87.6 Hypokalemia; F98.8 Other specified behavioral and emotional disorders with onset usually occurring in childhood and adolescence
CPT/HCPCS: 36415; 71045; 80048; 81003; 82010; 82805; 82962; 83036; 83735; 84100; 84132; 85025; 93005; 96361; 96365; 96366; 96375; 99285; J1650; J2405; J2550; J3475; J7030

== ENCOUNTER 2018-10-14 09:23 | Emergency (ER) | payer SELFPAY ==
--- OUTSIDE RECORDS SUMMARY | 2018-10-14 09:26 | XMS REPORT | Continuity of Care Document ---
:1990 Author Organization Interface Problems Problem Status Onset Classification Date Comments Source Date Reported Discharge 11/26/2016 [facility] Diagnosis: 7 Cervical strain ACCIDENT Active [facility] 7 [place] DM (<span Resolved Problem 11/26/2016 [facility] ID="[id number]">Confirme d</span>) Medications Medication Details Route Status Patient Ordering Order Source Instructions Provider Date Cyclobenzaprine 10 mg, PO, Active hydrochloride 10 TID, PRN 017 [place] MG Oral Tablet Muscle [Flexeril] Spasm, X 10 day, # 30 tab, 0 Refill(s) Motrin 800 mg oral 800 mg=1 Active tablet tab, PO, 017 [place] TID, X 7 day, # 21 tab, 0 Refill(s) Allergies, Adverse Reactions, Alerts Substance Category Reaction Severity Reaction Status Date Comments Source type Reported Immunizations Immunization Date Given Site Status Last Updated Comments Source Results Order Results Value Reference Date Interpretation Comments Source Name Range Vital Signs Vital Sign Value Date Comments Source Temperature Oral (F) 98.2 F 11/24/2016 [facility] Heart Rate 88 11/24/2016 [facility] Respitory Rate 16 11/24/2016 [facility] Systolic (mm Hg) 117 11/24/2016 [facility] Diastolic (mm Hg) 75 11/24/2016 [facility] BMI Calculated 26.6 11/24/2016 [facility] Height 177.8 cm 11/24/2016 [facility] Weight 84.091 11/24/2016 [facility] Respitory Rate 18 11/24/2016 [facility] Heart Rate 91 11/24/2016 [facility] Systolic (mm Hg) 118 11/24/2016 [facility] Diastolic (mm Hg) 76 11/24/2016 [facility] Temperature Oral (F) 98.1 F 11/24/2016 [facility] Encounters Location Location Encounter Encounter Reason Attending ADM DC Status Source Details Type Number For Provider Date Date Visit [facility] Emergency [id number] [place] 11/24 11/24 MAGAN [place] /2016 [facility] Procedures Procedure Code Date Perfomer Comments Source Removal of [id number] MAGAN [place] silastic tubes from ear
--- NOTE | 2018-10-14 09:51 | ER ---
Nurse's Notes [facility] Name: Enio Bradley Age: 28 yrs Sex: Male : 1990 Arrival Date: 10/14/2018 Time: 09:26 Bed 5 Private MD: Diagnosis: Type 1 diabetes mellitus;Abdominal tenderness;Gastrointestinal hemorrhage, unspecified-upper ;Elevated white blood cell count;Diabetes mellitus due to underlying condition with ketoacidosis without coma;Acute kidney failure;Acidosis;Hydronephrosis with ureteral stricture, not elsewhere classified Presentation: 10/14 09:33 Presenting complaint: Patient states: i ve been vomiting with black stuff since this hj morning, i think im on DKA; actively vomiting on triage. Transition of care: patient was not received from another setting of care. Onset of symptoms was October 14, 2018. Risk Assessment: Do you want to hurt yourself or someone else? Patient reports no desire to harm self or others. Initial Sepsis Screen: Does the patient meet any 2 criteria? No. Patient's initial sepsis screen is negative. Does the patient have a suspected source of infection? No. Patient's initial sepsis screen is negative. Care prior to arrival: None. 09:33 Method Of Arrival: Ambulatory 09:33 Acuity: JAMAL 2 hj Triage Assessment: 09:36 General: Appears in no apparent distress. uncomfortable, Behavior is cooperative, hj appropriate for age. Pain: Denies pain. GI: Reports nausea, vomiting. Historical: - Allergies: 09:34 No Known Drug Allergies; hj - PMHx: 09:34 ADD/ADHD; Diabetes - IDDM; hj - PSHx: 09:34 None; hj - Immunization history:: Adult Immunizations up to date. - Social history:: Smoking status: Patient/guardian denies using tobacco, Patient/guardian denies using alcohol. - Ebola Screening: : Patient negative for fever greater than or equal to 101.5 degrees Fahrenheit, and additional compatible Ebola Virus Disease symptoms Patient denies exposure to infectious person Patient denies travel to an Ebola-affected area in the 21 days before illness onset. Screenin:37 Abuse screen: Denies threats or abuse. Denies injuries from another. Nutritional hj screening: No deficits noted. Tuberculosis screening: No symptoms or risk factors identified. Fall Risk None identified. Assessment: 09:36 GI: Bowel sounds present X 4 quads. Abd is soft. hj 09:40 General: Appears uncomfortable, Behavior is calm, cooperative. Pain: Denies pain. aa5 Neuro: Level of Consciousness is awake, alert, obeys commands, Oriented to person, place, time, situation. Cardiovascular: Heart tones S1 S2 present Rhythm is regular. Respiratory: Airway is patent Respiratory effort is even, unlabored, Respiratory pattern is regular, symmetrical, tachypnea. GI: Abdomen is flat, non-distended, Bowel sounds present X 4 quads. Abd is soft X 4 quads Abdomen is tender to palpation in right upper quadrant and left upper quadrant Reports nausea, vomiting dark blood that began this morning around 0200. : No signs and/or symptoms were reported regarding the genitourinary system. EENT: No signs and/or symptoms were reported regarding the EENT system. Derm: Skin is pink, warm \T\ dry. Musculoskeletal: Range of motion: intact in all extremities. 11:36 General: Appears in no apparent distress. uncomfortable, Behavior is calm, listless. aj Neuro: Level of Consciousness is alert, obeys commands, lethargic, Oriented to person, place, time, situation. Respiratory: Airway is patent Respiratory effort is even, unlabored, Respiratory pattern is regular, symmetrical. Derm: Skin is intact, is healthy with good turgor, Skin is pink, warm \T\ dry. normal. 13:50 Reassessment: Patient appears in no apparent distress at this time. No changes from aj previously documented assessment. Patient and/or family updated on plan of care and expected duration. Pain level reassessed. Patient is alert, oriented x 3, equal unlabored respirations, skin warm/dry/pink. Patient denies pain at this time. Patient states feeling better. Patient states symptoms have improved. Vital Signs: 09:35 BP 134 / 74; Pulse 85; Resp 18; Temp 97.4(TE); Pulse Ox 100% on R/A; Weight 88.45 kg; hj Height 5 ft. 11 in. (180.34 cm); Pain 0/10; 09:40 Resp 26 S; Pulse Ox 100% on R/A; aa5 11:38 BP 120 / 65; Pulse 124; Resp 19; Pulse Ox 98% on R/A; aj 09:35 Body Mass Index 27.20 (88.45 kg, 180.34 cm) ED Course: 09:26 Patient arrived in ED. mr 09:31 Sabas Velazco MD is Attending Physician. [facility] 09:33 Joelle Go RN is Primary Nurse. aa5 09:34 Triage completed. hj 09:36 Arm band placed on right wrist. hj 09:37 Patient has correct armband on for positive identification. Bed in low position. Call light in reach. Side rails up X 1. Adult w/ patient. 09:45 Inserted saline lock: 20 gauge in right forearm, using aseptic technique. aa5 09:45 First set of blood cultures drawn by me. aa5 09:59 EKG done, by ED staff, reviewed by Sabas Velazco MD. dh3 10:00 Missed attempt(s): 20 gauge in right antecubital area. Bleeding controlled, band aid aa5 applied, catheter tip intact. 10:05 Report given to YVONNE Dove. aa5 10:05 Second set of blood cultures drawn by me. Inserted saline lock: 20 gauge in left hand, aa5 using aseptic technique. 10:45 XRAY Chest (1 view) In Process Unspecified. EDMS 10:46 Radiology exam delayed due to lab results not completed at this time. (BUN/Creatinine). kw1 11:38 Note: pt on bed kitchen. kw1 12:29 CT completed. Patient tolerated procedure well. Patient moved back from CT. mw3 12:31 Abdomen In Process Unspecified. EDMS 13:25 Inserted saline lock: 22 gauge in left forearm, using aseptic technique. aj 13:51 One-on-one care X 240 minutes. aj 13:51 No provider procedures requiring assistance completed. Patient transferred, IV remains aj in place. Administered Medications: 10:19 CANCELLED (Physician Discretion): morphine 4 mg IVP once aa5 10:36 Drug: Zofran 4 mg Route: IVP; Site: right forearm; aj 13:23 Follow up: Response: Nausea is decreased aj 10:37 Drug: NS 0.9% 1000 ml Route: IV; Rate: 1 bolus; Site: right forearm; aj 13:24 Follow up: Response: No adverse reaction; IV Status: Completed infusion; IV Intake: aj 1000ml 10:37 Drug: NS 0.9% 1000 ml Route: IV; Rate: 125 ml/hr; Site: right forearm; aj 13:55 Follow up: Response: No adverse reaction; IV Status: Infusion continued upon transfer; aj IV Intake: 100ml 10:37 Drug: ProTONIX 80 mg Route: IVP; Site: right femoral; aj 13:55 Follow up: Response: Nausea is decreased aj 10:38 Drug: NS 0.9% 1000 ml Route: IV; Rate: 1 bolus; Site: right forearm; aj 13:23 Follow up: Response: No adverse reaction; IV Status: Completed infusion; IV Intake: aj 1000ml 10:57 CANCELLED (Duplicate Order): Insulin Regular Human 10 units Sub-Q once kinza 11:34 Drug: Insulin Regular Human 10 units {Co-Signature: iw (Patsy Hess RN).} Route: aj IVP; Site: left hand; 13:54 Follow up: Response: Blood sugar is lowered aj 11:34 Drug: NS 0.9% 1000 ml Route: IV; Rate: 1 bolus; Site: right forearm; aj 13:22 Follow up: IV Status: Completed infusion; IV Intake: 1000ml aj 11:35 Drug: Insulin Drip - (Insulin Regular Human 100 units, NS 0.9% 100 ml) {Co-Signature: [facility] (Patsy Hess RN).} Route: IV; Rate: 5 units/hr; Site: left hand; 13:54 Follow up: Response: Blood sugar is lowered; IV Status: Infusion continued upon transferaj 11:36 Drug: Zofran 4 mg Route: IVP; Site: left hand; aj 13:21 Follow up: Response: Nausea is decreased aj 12:58 Drug: Cefepime 2 grams Route: IVPB; Rate: 200 ml/hr; Infused Over: 30 mins; Site: left iw wrist; 13:22 Follow up: Response: No adverse reaction; IV Status: Completed infusion; IV Intake: 20mlaj 13:25 Drug: vancoMYCIN 1 grams Route: IVPB; Infused Over: 2 hrs; Site: left forearm; aj 13:53 Follow up: Response: No adverse reaction; IV Status: Infusion continued upon transfer aj 13:53 Not Given (inappropriate at this time): Phenergan 12.5 mg IVP once aj Point of Care Testing: Blood Glucose: 09:35 Blood Glucose: 500 mg/dL; hj 09:35 more than 500 hj Ranges: Intake: 13:22 IV: 1000ml; Total: 1000ml. aj 13:22 IV: 20ml; Total: 1020ml. aj 13:23 IV: 1000ml; Total: 2020ml. aj 13:24 IV: 1000ml; Total: 3020ml. aj 13:55 IV: 100ml; Total: 3120ml. aj Outcome: 09:51 ER care complete, transfer ordered by . [facility] 13:51 Transferred by ground EMS to [facility], [facility] [place] completed. aj X-rays sent w/ patient. 13:51 critical 13:51 Instructed on the need for transfer, Demonstrated understanding of 13:56 Patient left the ED. aj Signatures: Dispatcher [employer] EDMS Petty Vargas, RN RN Sabas Killian MD MD cha Rivera, Mala Hess, Patsy, RN Joelle Galeana RN RN aa5 Dani Coates RN YVONNE King, Stormy 3 Bri Lancasetr kw1 Fawn Araujo mw3 Patsy ortiz Corrections: (The following items were deleted from the chart) 09:37 09:33 Presenting complaint: Patient states: i ve been with black stuff since this hj morning, i think im on DKA; hj 09:53 09:33 Acuity: JAMAL 3 [facility] 10:39 09:40 Respiratory: Airway is patent Respiratory effort is even, unlabored, Respiratory aa5 pattern is regular, symmetrical, aa5
--- NOTE | 2018-10-14 09:51 | EDPHYS ---
Physician Documentation [facility] Name: Enio Bradley Age: 28 yrs Sex: Male : 1990 Arrival Date: 10/14/2018 Time: 09:26 Bed 5 Private MD: ED Physician Sabas Velazco HPI: 10/14 09:46 This 28 yrs old Male presents to ER via Ambulatory with complaints of kinza Abdominal Pain, Vomiting. 09:46 The patient presents to the emergency department with nausea, vomiting, that is kinza continuous, described as coffee ground in nature, abdominal pain, of the epigastric area, right upper quadrant and left upper quadrant. Onset: The symptoms/episode began/occurred 2 day(s) ago. Possible causes: unknown. The symptoms are aggravated by movement, food , The symptoms are alleviated by nothing. remaining still. Associated signs and symptoms: Pertinent positives: abdominal pain, GI bleeding, nausea, vomiting. Severity of symptoms: At their worst the symptoms were moderate in the emergency department the symptoms are unchanged. The patient has not experienced similar symptoms in the past. Historical: - Allergies: 09:34 No Known Drug Allergies; hj - PMHx: 09:34 ADD/ADHD; Diabetes - IDDM; hj - PSHx: 09:34 None; hj - Immunization history:: Adult Immunizations up to date. - Social history:: Smoking status: Patient/guardian denies using tobacco, Patient/guardian denies using alcohol. - Ebola Screening: : Patient negative for fever greater than or equal to 101.5 degrees Fahrenheit, and additional compatible Ebola Virus Disease symptoms Patient denies exposure to infectious person Patient denies travel to an Ebola-affected area in the 21 days before illness onset. ROS: 09:47 Eyes: Negative for injury, pain, redness, and discharge, ENT: Negative for injury, kinza pain, and discharge, Neck: Negative for injury, pain, and swelling, Cardiovascular: Negative for chest pain, palpitations, and edema, Respiratory: Negative for shortness of breath, cough, wheezing, and pleuritic chest pain, Back: Negative for injury and pain, : Negative for injury, bleeding, discharge, and swelling, MS/Extremity: Negative for injury and deformity, Skin: Negative for injury, rash, and discoloration, Neuro: Negative for headache, weakness, numbness, tingling, and seizure, Psych: Negative for depression, anxiety, suicide ideation, homicidal ideation, and hallucinations, Allergy/Immunology: Negative for hives, rash, and allergies, Hematologic/Lymphatic: Negative for swollen nodes, abnormal bleeding, and unusual bruising. 09:47 Abdomen/GI: Positive for abdominal pain, nausea and vomiting, abdominal cramps, hematemesis. Exam: 09:47 Head/Face: Normocephalic, atraumatic. Eyes: Pupils equal round and reactive to light, kinza extra-ocular motions intact. Lids and lashes normal. Conjunctiva and sclera are non-icteric and not injected. Cornea within normal limits. Periorbital areas with no swelling, redness, or edema. ENT: Nares patent. No nasal discharge, no septal abnormalities noted. Tympanic membranes are normal and external auditory canals are clear. Oropharynx with no redness, swelling, or masses, exudates, or evidence of obstruction, uvula midline. Mucous membranes moist. Neck: Trachea midline, no thyromegaly or masses palpated, and no cervical lymphadenopathy. Supple, full range of motion without nuchal rigidity, or vertebral point tenderness. No Meningismus. Chest/axilla: Normal chest wall appearance and motion. Nontender with no deformity. No lesions are appreciated. Cardiovascular: Regular rate and rhythm with a normal S1 and S2. No gallops, murmurs, or rubs. Normal PMI, no JVD. No pulse deficits. Respiratory: Lungs have equal breath sounds bilaterally, clear to auscultation and percussion. No rales, rhonchi or wheezes noted. No increased work of breathing, no retractions or nasal flaring. Back: No spinal tenderness. No costovertebral tenderness. Full range of motion. Male : Normal genitalia with no discharge or lesions. Skin: Warm, dry with normal turgor. Normal color with no rashes, no lesions, and no evidence of cellulitis. MS/ Extremity: Pulses equal, no cyanosis. Neurovascular intact. Full, normal range of motion. Neuro: Awake and alert, GCS 15, oriented to person, place, time, and situation. Cranial nerves II-XII grossly intact. Motor strength 5/5 in all extremities. Sensory grossly intact. Cerebellar exam normal. Normal gait. Psych: Awake, alert, with orientation to person, place and time. Behavior, mood, and affect are within normal limits. 09:47 Constitutional: The patient appears in obvious distress, mildly distressed. 09:47 Abdomen/GI: Inspection: abdomen appears normal, Bowel sounds: normal, Palpation: mild abdominal tenderness, in the epigastric area, right upper quadrant and left upper quadrant, moderate abdominal tenderness, Liver: no appreciated palpable abnormalities, Hernia: not appreciated. Vital Signs: 09:35 BP 134 / 74; Pulse 85; Resp 18; Temp 97.4(TE); Pulse Ox 100% on R/A; Weight 88.45 kg; hj Height 5 ft. 11 in. (180.34 cm); Pain 0/10; 09:40 Resp 26 S; Pulse Ox 100% on R/A; aa5 11:38 BP 120 / 65; Pulse 124; Resp 19; Pulse Ox 98% on R/A; aj 09:35 Body Mass Index 27.20 (88.45 kg, 180.34 cm) hj MDM: 09:31 Patient medically screened. [facility] 09:47 Data reviewed: vital signs, nurses notes, lab test result(s), EKG, radiologic studies, kinza plain films. 10/14 09:35 Order name: Glucose, Ancillary Testing; Complete Time: 10:35 EDMS 10/14 09:45 Order name: Basic Metabolic Panel [facility] 10/14 09:45 Order name: CBC with Diff [facility] 10/14 09:45 Order name: LFT's [facility] 10/14 09:45 Order name: Magnesium [facility] 10/14 09:45 Order name: NT PRO-BNP; Complete Time: 10:59 [facility] 10/14 09:45 Order name: PT-INR; Complete Time: 10:50 [facility] 10/14 09:45 Order name: Troponin (emerg Dept Use Only); Complete Time: 10:59 [facility] 10/14 09:45 Order name: Lipase; Complete Time: 10:59 [facility] 10/14 09:45 Order name: Blood Culture Adult (2) [facility] 10/14 09:46 Order name: Type And Screen; Complete Time: 13:39 [facility] 10/14 09:47 Order name: Basic Metabolic Panel; Complete Time: 10:59 EDMS 10/14 09:47 Order name: CBC with Automated Diff; Complete Time: 13:39 EDMO 10/14 09:45 Order name: XRAY Chest (1 view); Complete Time: 11:14 [facility] 10/14 09:47 Order name: Liver (Hepatic) Function; Complete Time: 10:59 EDMO 10/14 09:47 Order name: Magnesium; Complete Time: 10:59 EDMO 10/14 10:58 Order name: ABG; Complete Time: 13:39 [facility] 10/14 11:38 Order name: Manual Differential; Complete Time: 13:39 EDMS 10/14 11:39 Order name: Abdomen ; Complete Time: 13:39 EDMO 10/14 13:10 Order name: Glucose; Complete Time: 13:39 10/14 09:45 Order name: EKG; Complete Time: 09:49 [facility] 10/14 09:45 Order name: Cardiac monitoring; Complete Time: 09:53 [facility] 10/14 09:45 Order name: EKG - Nurse/Tech; Complete Time: 10:01 [facility] 10/14 09:45 Order name: IV Saline Lock; Complete Time: 09:53 [facility] 10/14 09:45 Order name: Labs collected and sent; Complete Time: 09:53 [facility] 10/14 09:45 Order name: O2 Per Protocol; Complete Time: 09:54 [facility] 10/14 09:45 Order name: O2 Sat Monitoring; Complete Time: 10:01 [facility] 10/14 11:02 Order name: IV Saline Lock - Large Bore; Complete Time: 11:36 [facility] Administered Medications: 10:19 CANCELLED (Physician Discretion): morphine 4 mg IVP once aa5 10:36 Drug: Zofran 4 mg Route: IVP; Site: right forearm; aj 13:23 Follow up: Response: Nausea is decreased aj 10:37 Drug: NS 0.9% 1000 ml Route: IV; Rate: 1 bolus; Site: right forearm; aj 13:24 Follow up: Response: No adverse reaction; IV Status: Completed infusion; IV Intake: aj 1000ml 10:37 Drug: NS 0.9% 1000 ml Route: IV; Rate: 125 ml/hr; Site: right forearm; aj 13:55 Follow up: Response: No adverse reaction; IV Status: Infusion continued upon transfer; aj IV Intake: 100ml 10:37 Drug: ProTONIX 80 mg Route: IVP; Site: right femoral; aj 13:55 Follow up: Response: Nausea is decreased aj 10:38 Drug: NS 0.9% 1000 ml Route: IV; Rate: 1 bolus; Site: right forearm; aj 13:23 Follow up: Response: No adverse reaction; IV Status: Completed infusion; IV Intake: aj 1000ml 10:57 CANCELLED (Duplicate Order): Insulin Regular Human 10 units Sub-Q once kinza 11:34 Drug: Insulin Regular Human 10 units {Co-Signature: iw (Patsy Hess RN).} Route: aj IVP; Site: left hand; 13:54 Follow up: Response: Blood sugar is lowered aj 11:34 Drug: NS 0.9% 1000 ml Route: IV; Rate: 1 bolus; Site: right forearm; aj 13:22 Follow up: IV Status: Completed infusion; IV Intake: 1000ml aj 11:35 Drug: Insulin Drip - (Insulin Regular Human 100 units, NS 0.9% 100 ml) {Co-Signature: [facility] (Patsy Hess RN).} Route: IV; Rate: 5 units/hr; Site: left hand; 13:54 Follow up: Response: Blood sugar is lowered; IV Status: Infusion continued upon transferaj 11:36 Drug: Zofran 4 mg Route: IVP; Site: left hand; aj 13:21 Follow up: Response: Nausea is decreased aj 12:58 Drug: Cefepime 2 grams Route: IVPB; Rate: 200 ml/hr; Infused Over: 30 mins; Site: left iw wrist; 13:22 Follow up: Response: No adverse reaction; IV Status: Completed infusion; IV Intake: 20mlaj 13:25 Drug: vancoMYCIN 1 grams Route: IVPB; Infused Over: 2 hrs; Site: left forearm; aj 13:53 Follow up: Response: No adverse reaction; IV Status: Infusion continued upon transfer aj 13:53 Not Given (inappropriate at this time): Phenergan 12.5 mg IVP once aj Point of Care Testing: Blood Glucose: 09:35 Blood Glucose: 500 mg/dL; hj 09:35 more than 500 hj Ranges: Critical Glucose Levels:Adult <50 mg/dl or >400 mg/dl <40 mg/dl or >180 mg/dl Disposition: 10/14/18 09:[address] [facility]. Diagnosis are Type 1 diabetes mellitus, Abdominal tenderness, Gastrointestinal hemorrhage, unspecified - upper , Elevated white blood cell count, Diabetes mellitus due to underlying condition with ketoacidosis without coma, Acute kidney failure, Acidosis, Hydronephrosis with ureteral stricture, not elsewhere classified. - Reason for transfer: Higher level of care. - Accepting physician is to [facility]. - Condition is Fair. - Problem is new. - Symptoms have improved. Signatures: Dispatcher [employer] Petty Willson, RN Sabas Hammonds MD MD cha Williams, Irene RN Dani Patel RN RN hj Calderon, Audri RN aa5 Patsy Hess RN iw Corrections: (The following items were deleted from the chart) 10:19 09:45 morphine 4 mg IVP once ordered. kinza aa5 10:45 09:51 10/14/2018 09:[address] [facility]. Diagnosis is kinza Type 1 diabetes mellitus; Abdominal tenderness; Gastrointestinal hemorrhage, unspecified - upper . Reason for transfer: Higher level of care. Accepting physician is to [facility]. Condition is Fair. Problem is new. Symptoms have improved. [facility] 10:57 10:36 Insulin Regular Human 10 units Sub-Q once ordered. [facility] 11:01 10:45 10/14/2018 09:[address] [facility]. Diagnosis is kinza Type 1 diabetes mellitus; Abdominal tenderness; Gastrointestinal hemorrhage, unspecified - upper ; Elevated white blood cell count. Reason for transfer: Higher level of care. Accepting physician is to [facility]. Condition is Fair. Problem is new. Symptoms have improved. [facility] 11:02 11:01 10/14/2018 09:[address] [facility]. Diagnosis is kinza Type 1 diabetes mellitus; Abdominal tenderness; Gastrointestinal hemorrhage, unspecified - upper ; Elevated white blood cell count; Diabetes mellitus due to underlying condition with ketoacidosis without coma. Reason for transfer: Higher level of care. Accepting physician is to [facility]. Condition is Fair. Problem is new. Symptoms have improved. kinza 11:29 11:02 10/14/2018 09:[address] [facility]. Diagnosis is kinza Type 1 diabetes mellitus; Abdominal tenderness; Gastrointestinal hemorrhage, unspecified - upper ; Elevated white blood cell count; Diabetes mellitus due to underlying condition with ketoacidosis without coma; Acute kidney failure. Reason for transfer: Higher level of care. Accepting physician is to [facility]. Condition is Fair. Problem is new. Symptoms have improved. [facility] 11:39 11:01 Abdomen Pelvis W Con+CT.RAD.BRZ ordered. EDMS EDMS 13:42 11:29 10/14/2018 09:[address] [facility]. Diagnosis is kinza Type 1 diabetes mellitus; Abdominal tenderness; Gastrointestinal hemorrhage, unspecified - upper ; Elevated white blood cell count; Diabetes mellitus due to underlying condition with ketoacidosis without coma; Acute kidney failure; Acidosis. Reason for transfer: Higher level of care. Accepting physician is to [facility]. Condition is Fair. Problem is new. Symptoms have improved. kinza 13:56 13:42 10/14/2018 09:[address] [facility]. Diagnosis is aj Type 1 diabetes mellitus; Abdominal tenderness; Gastrointestinal hemorrhage, unspecified - upper ; Elevated white blood cell count; Diabetes mellitus due to underlying condition with ketoacidosis without coma; Acute kidney failure; Acidosis; Hydronephrosis with ureteral stricture, not elsewhere classified. Reason for transfer: Higher level of care. Accepting physician is to [facility]. Condition is Fair. Problem is new. Symptoms have improved. kinza
[2018-10-14] MEDS ORDERED: PANTOPRAZOLE INJ 80 MG in NA CHLORIDE 0.9% 250 ML IV ONE (10:00)
[2018-10-14] MEDS ORDERED: PANTOPRAZOLE 40 MG INJ ONE (10:11)
[2018-10-14] MEDS ORDERED: NA CHLORIDE 0.9% 3,000 ML ONE (10:11)
[2018-10-14] MEDS ORDERED: ONDANSETRON 4 MG/2 ML VIAL ONE ×2 (10:11→11:42)
[2018-10-14] MEDS ORDERED: MORPHINE 4 MG/ML SYR ONE (10:11)
[2018-10-14 10:30] LABS: Basophils % 0.4 % (0-1.3); Hematocrit 48.4 % (39.6-49.0); Lymphocytes % 4.7 % (15.3-44.8); MPV 9.1 fL (7.6-11.3); Monocytes % 3.8 % (3.3-12.3); RBC Red Blood Cell Count 5.24 M/uL (4.33-5.43)
[2018-10-14 10:49] LABS: Protime INR 1.01
[2018-10-14 10:55] LABS: BUN Blood Urea Nitrogen 29 mg/dL (7-18); Glucose Level 767 mg/dL (74-106); Potassium 4.9 mmol/L (3.5-5.1); Sodium Level 135 mmol/L (136-145)
[2018-10-14 10:56] LABS: ALT/SGPT 30 U/L (12-78); AST/SGOT 19 U/L (15-37); Albumin 4.7 g/dL (3.4-5.0); Alkaline Phosphatase 96 U/L (45-117); Bilirubin Direct 0.3 mg/dL (0-0.2); Bilirubin Total 1.6 mg/dL (0.2-1.0); Lipase 57 U/L (73-393); Magnesium 2.6 mg/dL (1.8-2.4); NT PRO-BNP 34 pg/mL (<125); Protein, Total 8.5 g/dL (6.4-8.2); Troponin (Emerg Dept Use Only) < 0.02 ng/mL (0.0-0.045)
[2018-10-14 10:57] LABS: Bicarbonate 8 mmol/L (21-32)
--- NOTE | 2018-10-14 11:02 | RAD REPORT ---
EXAM DESCRIPTION: RAD - Chest Single View - 10/14/2018 10:44 am CLINICAL HISTORY: Cough, vomiting, abdominal pain COMPARISON: May 2018 TECHNIQUE: AP portable chest image was obtained 1014 hours . FINDINGS: Lungs are clear. Heart and vasculature are normal. No measurable pleural effusion and no p neumothorax. No acute bony abnormality seen. No acute aortic findings suspected. IMPRESSION: No acute cardiopulmonary process.
[2018-10-14 11:28] LABS: Arterial Blood Carboxyhemoglob 1.4 % (0-1.5); Blood Gas Oxyhemoglobin 94.8 % (94-97); Blood O2 Saturation 97.1 % (92-98.5)
[2018-10-14 11:38] LABS: Blood Morphology Comment NOT SEEN (NOT SEEN); Platelet Estimate ADEQ; Toxic Granulation 2+
[2018-10-14] MEDS ORDERED: INSULIN -REGULAR HUMAN 50 UNIT/0.5 ML ML ONE (11:38)
[2018-10-14] MEDS ORDERED: PROMETHAZINE 25 MG/ML VIAL ONE (11:42)
[2018-10-14] MEDS ORDERED: INSULIN -REGULAR HUMAN 100 UNIT in NA CHLORIDE 0.9% 100 ML IV SCH (12:00)
[2018-10-14] MEDS ORDERED: VANCOMYCIN/NS 1 gm 1 GM/250 ML BAG IV ONE (12:00)
[2018-10-14] MEDS ORDERED: CEFEPIME/SWI 2gm 2 GM/20 ML SYR IV ONE (12:00)
--- NOTE | 2018-10-14 12:49 | RAD REPORT ---
EXAM DESCRIPTION: CT - Abdomen Pelvis Wo Contrast - 10/14/2018 12:30 pm CLINICAL HISTORY: Abdominal pain, hematemesis COMPARISON: CT imaging February 2008 TECHNIQUE: Axial [address] imaging of the abdomen and pelvis was performed without IV contrast. No IV contrast was given because of allergy, abnormal renal function, patient refusal or physician re quest. No oral contrast was given. All CT scans are performed using dose optimization technique as appropriate and may include automated exposure control or mA/KV adjustment according to patient size. FINDINGS: No suspicious findings in the lung bases. No pericardial thickening or effusion. The liver, spleen and pancreas show no suspicious findings on non-contrast imaging. Gallbladder and b iliary tree are also without suspicious finding. Severe hydronephrosis of the right collecting system is present with moderate hydronephrosis of the l eft collecting system. No obstructing or nonobstructing calculi seen. Urinary bladder is dilated with the dome of the bladder reaching the level of the umbilicus. No urinary bladder wall thickening or m ass. No bladder calculi seen. Motion degradation limits lower pelvic detail. Prostate gland does not appear enlarged. No significant adrenal finding. Isodense renal masses and pyelonephritis cannot be excluded in the absence of IV contrast. No gastric dilatation or gastric wall thickening evident. No dilated large or small bowel. No acute G I process seen. No free air, free fluid or inflammatory stranding. No hernia, mass or bulky lymphaden opathy. No suspicious bony findings. IMPRESSION: No gastric dilatation or wall thickening. No acute GI process identified on noncontrast imaging. Urinary bladder is dilated and there is severe right-side and moderate left-sided hydronephrosis with out obstructing calculus. No mass lesion is evident as a source for the obstructive process. Patient may have physiologic bl adder outlet obstruction or a prostatic urethral stricture. Full assessment is limited is the absence of IV contrast.
[2018-10-14] MEDS ORDERED: NA CHLORIDE 0.9% 1,000 ML ONE (14:02)
[2018-10-14 14:21] VITALS: TEMP 97.4
[2018-10-14 14:23] VITALS: BP 120/65; O2SAT 98
--- NOTE | 2018-10-15 07:54 | EKG ---
Test Date: 2018-10-14 Test Time: 09:59:11 Residential Support Worker: FLYNN MEASUREMENT RESULTS: Intervals: Rate: 119 MI: 146 QRSD: 80 QT: 318 QTc: 447 [place]: P: 61 MI: 146 QRS: 75 T: 41 INTERPRETIVE STATEMENTS: Sinus tachycardia Biatrial enlargement Abnormal ECG Compared to ECG 05/29/2018 23:30:01 Myocardial infarct finding no longer present Electronically Signed On 10-15-18 07:53:38 CDT by Chong Shoemaker
== END 2018-10-14 13:56 | disposition short-term general hospital (02) ==
LOC: ER 09:23
DX: E10.10 Type 1 diabetes mellitus with ketoacidosis without coma (principal); E10.22 Type 1 diabetes mellitus with diabetic chronic kidney disease; N13.1 Hydronephrosis with ureteral stricture, not elsewhere classified; K92.0 Hematemesis; D72.829 Elevated white blood cell count, unspecified
CPT/HCPCS: 36415; 71045; 74176; 80048; 80076; 82805; 82947; 82962; 83690; 83735; 83880; 84484; 85025; 85610; 86850; 86900; 86901; 87040; 93005; 99285; C9113; J0692; J2405; J2550; J3370; J7030

== ENCOUNTER 2019-02-13 14:33 | Emergency (ER) | payer SELFPAY ==
[2019-02-13 15:13] LABS: Arterial Blood Carboxyhemoglob 1.8 % (0-1.5); Blood Gas Oxyhemoglobin 95.1 % (94-97); Blood O2 Saturation 97.7 % (92-98.5)
[2019-02-13] MEDS ORDERED: ONDANSETRON 4 MG/2 ML VIAL ONE (15:13)
[2019-02-13] MEDS ORDERED: NA CHLORIDE 0.9% 2,000 ML ONE (15:13)
[2019-02-13 15:17] LABS: Absolute Lymphocytes (CBC) 1.4 K/uL (0.7-4.9); Basophils % 0.6 % (0-1.3); Hematocrit 44.1 % (39.6-49.0); MPV 7.8 fL (7.6-11.3); RBC Red Blood Cell Count 5.03 M/uL (4.33-5.43)
[2019-02-13] MEDS ORDERED: INSULIN -REGULAR HUMAN 50 UNIT/0.5 ML ML ONE (15:18)
[2019-02-13 15:32] LABS: ALT/SGPT 38 U/L (12-78); AST/SGOT 21 U/L (15-37); Albumin 4.3 g/dL (3.4-5.0); Alkaline Phosphatase 90 U/L (45-117); BUN Blood Urea Nitrogen 27 mg/dL (7-18); Bicarbonate 22 mmol/L (21-32); Bilirubin Total 1.5 mg/dL (0.2-1.0); Glucose Level 376 mg/dL (74-106); Sodium Level 140 mmol/L (136-145)
[2019-02-13] MEDS ORDERED: NA CHLORIDE 0.9% 1,000 ML ONE ×2 (16:27→17:14)
[2019-02-13 16:34] LABS: Urine Blood 2+ (NEG); Urine Glucose 2+ (NEG); Urine Protein 1+ (NEG); Urine Specific Gravity 1.015 (1.005-1.030)
--- NOTE | 2019-02-13 18:02 | ER ---
Nurse's Notes [facility] Name: Enio Bradley Age: 28 yrs Sex: Male : 1990 Arrival Date: 02/13/2019 Time: 14:36 Bed 23 Private MD: Diagnosis: Hyperglycemia, unspecified Presentation: 02/13 14:43 Presenting complaint: N/V/D and upper abdominal pain since this morning. Not tolerating hb fluids. Home BGL 512. Transition of care: patient was not received from another setting of care. Onset of symptoms was February 13, 2019. Risk Assessment: Do you want to hurt yourself or someone else? Patient reports no desire to harm self or others. Care prior to arrival: None. 14:43 Method Of Arrival: Ambulatory hb 14:43 Acuity: JAMAL 3 hb 14:48 Acuity: JAMAL 2 la1 15:22 Initial Sepsis Screen: Does the patient meet any 2 criteria? HR > 90 bpm. No. Patient's la1 initial sepsis screen is negative. Does the patient have a suspected source of infection? No. Patient's initial sepsis screen is negative. Historical: - Allergies: 14:44 No Known Drug Allergies; hb - Home Meds: 14:44 Humalog 100 unit/mL Sub-Q crtg sliding scale with meals [Active]; Lantus Sub-Q 35 unit hb twice a day [Active]; - PMHx: 14:44 ADD/ADHD; Diabetes - IDDM; hb - PSHx: 14:44 None; hb - Immunization history:: Adult Immunizations up to date. - Social history:: Smoking status: Patient/guardian denies using tobacco. - Ebola Screening: : No symptoms or risks identified at this time. Screenin:21 Abuse screen: Denies threats or abuse. Nutritional screening: No deficits noted. la1 Tuberculosis screening: No symptoms or risk factors identified. Fall Risk None identified. Assessment: 15:21 General: Appears in no apparent distress. Behavior is calm, cooperative. Pain: Denies la1 pain. Neuro: Level of Consciousness is awake, alert, obeys commands, Oriented to person, place, time, situation. Cardiovascular: Capillary refill < 3 seconds Patient's skin is warm and dry. Respiratory: Airway is patent Respiratory effort is even, unlabored, Respiratory pattern is regular, symmetrical, Breath sounds are clear bilaterally. GI: No signs and/or symptoms were reported involving the gastrointestinal system. Abdomen is round non-distended, Bowel sounds. : No signs and/or symptoms were reported regarding the genitourinary system. 16:34 Reassessment: Patient appears in no apparent distress at this time. No changes from la1 previously documented assessment. Patient and/or family updated on plan of care and expected duration. Pain level reassessed. Patient is alert, oriented x 3, equal unlabored respirations, skin warm/dry/pink. 17:36 Reassessment: Patient appears in no apparent distress at this time. No changes from la1 previously documented assessment. Patient and/or family updated on plan of care and expected duration. Pain level reassessed. Patient is alert/active/playful, equal unlabored respirations, skin warm/dry/pink. 18:18 Reassessment: Patient appears in no apparent distress at this time. No changes from la1 previously documented assessment. Patient and/or family updated on plan of care and expected duration. Pain level reassessed. Patient is alert, oriented x 3, equal unlabored respirations, skin warm/dry/pink. Vital Signs: 14:44 BP 132 / 76; Pulse 106; Resp 16; Temp 97.2; Pulse Ox 100% on R/A; Weight 81.65 kg; hb Height 5 ft. 11 in. (180.34 cm); Pain 7/10; 15:26 BP 134 / 86; Pulse 114; Resp 16; Pulse Ox 98% on R/A; la1 16:34 BP 117 / 79; Pulse 115; Resp 16; Pulse Ox 98% on R/A; la1 17:36 BP 124 / 74; Pulse 114; Resp 16; Pulse Ox 98% on R/A; la1 18:20 BP 133 / 89; Pulse 98; Resp 18; Pulse Ox 100% on R/A; rv 14:44 Body Mass Index 25.10 (81.65 kg, 180.34 cm) hb ED Course: 14:36 Patient arrived in ED. as 14:44 Triage completed. hb 14:44 Arm band placed on. hb 14:47 Dionicio Boss NP is PHCP. pm1 14:47 Cory Bustos MD is Attending Physician. pm1 14:48 Attema, Luis, RN is Primary Nurse. la1 15:21 Patient has correct armband on for positive identification. la1 15:21 No provider procedures requiring assistance completed. Inserted saline lock: 18 gauge la1 in right antecubital area, using aseptic technique. Blood collected. 18:21 IV discontinued, intact, bleeding controlled, No redness/swelling at site. Pressure rv dressing applied. Administered Medications: 15:00 Drug: Insulin Regular Human 10 units {Co-Signature: aniyah (Aristides Sierra RN).} Route: la1 IVP; Site: right antecubital; 18:21 Follow up: Response: No adverse reaction; Blood sugar is lowered la1 15:20 Drug: NS 0.9% 1000 ml Route: IV; Rate: 1000 ml; Site: right antecubital; la1 18:21 Follow up: IV Status: Completed infusion la1 15:20 Drug: Zofran 4 mg Route: IVP; Site: right antecubital; la1 18:21 Follow up: Response: No adverse reaction la1 15:21 Drug: NS 0.9% 1000 ml Route: IV; Rate: 1000 ml; Site: right antecubital; la1 18:21 Follow up: IV Status: Completed infusion la1 16:32 Drug: NS 0.9% 1000 ml Route: IV; Rate: 1000 ml; Site: right antecubital; la1 18:21 Follow up: IV Status: Completed infusion la1 Outcome: 18:00 Discharge ordered by MD. pm1 18:20 Discharged to home ambulatory, with family. rv 18:20 Condition: good 18:20 Discharge instructions given to patient, Instructed on discharge instructions, follow up and referral plans. medication usage, Demonstrated understanding of instructions, follow-up care, medications, Prescriptions given X 2. 18:22 Patient left the ED. la1 Signatures: Kerry Fry Lee RN RN la1 Dionicio Boss, CARL INSTRUMENT MAN pm1 Lisa Fuchs RN RN hb Vicente, Ronaldo, RN RN rv Ronaldo Vicente RN rv
--- NOTE | 2019-02-13 18:02 | EDPHYS ---
Physician Documentation [facility] Name: Enio Bradley Age: 28 yrs Sex: Male : 1990 Arrival Date: 02/13/2019 Time: 14:36 Bed 23 Private MD: ED Physician Cory Bustos HPI: 02/13 16:37 This 28 yrs old Male presents to ER via Ambulatory with complaints of High pm1 Blood Sugar, Nausea/Vomiting. 16:37 The patient or guardian reports hyperglycemia, that was potentially precipitated by no pm1 particular event, Treatment prior to arrival includes: taking additional insulin. Onset: The symptoms/episode began/occurred this morning. Associated signs and symptoms: Pertinent positives: vomiting, epigastric pain after vomiting, Pertinent negatives: diarrhea. Current symptoms: In the emergency department the patient's symptoms are unchanged from the initial presentation. The patient has experienced similar episodes in the past, multiple times. Patient concerned that he might be heading towards ketoacidosis. Took additional Novolog 2 hours prior to arrival. Historical: - Allergies: 14:44 No Known Drug Allergies; hb - Home Meds: 14:44 Humalog 100 unit/mL Sub-Q crtg sliding scale with meals [Active]; Lantus Sub-Q 35 unit hb twice a day [Active]; - PMHx: 14:44 ADD/ADHD; Diabetes - IDDM; hb - PSHx: 14:44 None; hb - Immunization history:: Adult Immunizations up to date. - Social history:: Smoking status: Patient/guardian denies using tobacco. - Ebola Screening: : No symptoms or risks identified at this time. ROS: 16:37 Constitutional: Negative for fever, chills, and weight loss, Eyes: Negative for injury, pm1 pain, redness, and discharge, ENT: Negative for injury, pain, and discharge, Neck: Negative for injury, pain, and swelling, Cardiovascular: Negative for chest pain, palpitations, and edema, Respiratory: Negative for shortness of breath, cough, wheezing, and pleuritic chest pain. 16:37 Back: Negative for injury and pain, : Negative for injury, bleeding, discharge, and swelling, MS/Extremity: Negative for injury and deformity, Skin: Negative for injury, rash, and discoloration, Neuro: Negative for headache, weakness, numbness, tingling, and seizure. 16:37 Abdomen/GI: Positive for abdominal pain, nausea and vomiting, Negative for diarrhea, constipation. Exam: 16:37 Constitutional: This is a well developed, well nourished patient who is awake, alert, pm1 and in no acute distress. Head/Face: Normocephalic, atraumatic. Eyes: Pupils equal round and reactive to light, extra-ocular motions intact. Lids and lashes normal. Conjunctiva and sclera are non-icteric and not injected. Cornea within normal limits. Periorbital areas with no swelling, redness, or edema. ENT: Nares patent. No nasal discharge, no septal abnormalities noted. Tympanic membranes are normal and external auditory canals are clear. Oropharynx with no redness, swelling, or masses, exudates, or evidence of obstruction, uvula midline. Mucous membranes moist. Neck: Trachea midline, no thyromegaly or masses palpated, and no cervical lymphadenopathy. Supple, full range of motion without nuchal rigidity, or vertebral point tenderness. No Meningismus. Chest/axilla: Normal chest wall appearance and motion. Nontender with no deformity. No lesions are appreciated. Respiratory: Lungs have equal breath sounds bilaterally, clear to auscultation and percussion. No rales, rhonchi or wheezes noted. No increased work of breathing, no retractions or nasal flaring. Abdomen/GI: Soft, non-tender, with normal bowel sounds. No distension or tympany. No guarding or rebound. No evidence of tenderness throughout. Back: No spinal tenderness. No costovertebral tenderness. Full range of motion. Skin: Warm, dry with normal turgor. Normal color with no rashes, no lesions, and no evidence of cellulitis. 16:37 MS/ Extremity: Pulses equal, no cyanosis. Neurovascular intact. Full, normal range of motion. 16:37 Cardiovascular: Rate: tachycardic, Rhythm: regular, Pulses: no pulse deficits are appreciated, Heart sounds: normal, normal S1and S2, no murmur, no rub, no gallop, Edema: is not appreciated. 16:37 Neuro: Orientation: is normal, Motor: is normal, moves all fours. Vital Signs: 14:44 BP 132 / 76; Pulse 106; Resp 16; Temp 97.2; Pulse Ox 100% on R/A; Weight 81.65 kg; hb Height 5 ft. 11 in. (180.34 cm); Pain 7/10; 15:26 BP 134 / 86; Pulse 114; Resp 16; Pulse Ox 98% on R/A; la1 16:34 BP 117 / 79; Pulse 115; Resp 16; Pulse Ox 98% on R/A; la1 17:36 BP 124 / 74; Pulse 114; Resp 16; Pulse Ox 98% on R/A; la1 18:20 BP 133 / 89; Pulse 98; Resp 18; Pulse Ox 100% on R/A; rv 14:44 Body Mass Index 25.10 (81.65 kg, 180.34 cm) hb MDM: 14:48 Patient medically screened. pm1 16:20 Data reviewed: vital signs. Data interpreted: Pulse oximetry: on room air is 98 %. pm1 Interpretation: normal. 16:42 Counseling: I had a detailed discussion with the patient and/or guardian regarding: the pm1 historical points, exam findings, and any diagnostic results supporting the discharge/admit diagnosis, lab results. 02/13 14:52 Order name: Ketone, Serum; Complete Time: 16:05 pm1 02/13 14:52 Order name: CBC with Diff; Complete Time: 16:20 pm1 02/13 14:52 Order name: CMP; Complete Time: 16:05 pm1 02/13 14:52 Order name: ABG pm1 02/13 15:00 Order name: Glucose, Ancillary Testing; Complete Time: 15:06 EDMS 02/13 16:27 Order name: Urine Dipstick--Ancillary (enter results); Complete Time: 16:36 em1 02/13 14:52 Order name: IV Saline Lock; Complete Time: 15:21 pm1 02/13 14:52 Order name: Urine Dipstick-Ancillary (obtain specimen); Complete Time: 16:26 pm1 02/13 16:36 Order name: Glucose, Ancillary Testing; Complete Time: 16:36 EDMS 02/13 16:06 Order name: PO challenge; Complete Time: 16:33 pm1 Administered Medications: 15:00 Drug: Insulin Regular Human 10 units {Co-Signature: rv (Aristides Sierra RN).} Route: la1 IVP; Site: right antecubital; 18:21 Follow up: Response: No adverse reaction; Blood sugar is lowered la1 15:20 Drug: NS 0.9% 1000 ml Route: IV; Rate: 1000 ml; Site: right antecubital; la1 18:21 Follow up: IV Status: Completed infusion la1 15:20 Drug: Zofran 4 mg Route: IVP; Site: right antecubital; la1 18:21 Follow up: Response: No adverse reaction la1 15:21 Drug: NS 0.9% 1000 ml Route: IV; Rate: 1000 ml; Site: right antecubital; la1 18:21 Follow up: IV Status: Completed infusion la1 16:32 Drug: NS 0.9% 1000 ml Route: IV; Rate: 1000 ml; Site: right antecubital; la1 18:21 Follow up: IV Status: Completed infusion la1 Disposition: 02/14 09:19 Co-signature as Attending Physician, Cory Bustos MD I agree with the assessment and kdr plan of care. Disposition: 02/13/19 18:00 Discharged to Home. Impression: Hyperglycemia, unspecified. - Condition is Stable. - Discharge Instructions: Hyperglycemia, Blood Glucose Monitoring, Adult. - Prescriptions for Zofran 4 mg Oral Tablet - take 1 tablet by ORAL route every 12 hours As needed; 20 tablet. Pepcid 20 mg Oral Tablet - take 1 tablet by ORAL route every 12 hours for 10 days; 20 tablet. - Work release form, Medication Reconciliation Form, Thank You Letter, Antibiotic Education, Prescription Opioid Use form. - Follow up: Emergency Department; When: As needed; Reason: Worsening of condition. Follow up: Private Physician; When: 2 - 3 days; Reason: Recheck today's complaints, Continuance of care, Re-evaluation by your physician. - Problem is new. - Symptoms have improved. Signatures: Dispatcher [employer] EDMS Cory Bustos MD MD kdr Attema, Lee RN RN la1 Dionicio Boss, PITCH FILLER PITCH FILLER pm1 Lisa Fuchs RN RN Aristides dill Corrections: (The following items were deleted from the chart) 02/13 18:22 18:00 02/13/2019 18:00 Discharged to Home. Impression: Hyperglycemia, unspecified. la1 Condition is Stable. Forms are Medication Reconciliation Form, Thank You Letter, Antibiotic Education, Prescription Opioid Use. Follow up: Emergency Department; When: As needed; Reason: Worsening of condition. Follow up: Private Physician; When: 2 - 3 days; Reason: Recheck today's complaints, Continuance of care, Re-evaluation by your physician. Problem is new. Symptoms have improved. pm1
[2019-02-13 18:29] VITALS: TEMP 97.2
[2019-02-13 18:35] VITALS: BP 133/89; O2SAT 100
== END 2019-02-13 18:22 | disposition home or self-care (01) ==
LOC: ER 14:33
DX: R73.9 Hyperglycemia, unspecified (principal)
CPT/HCPCS: 36415; 80053; 81003; 82010; 82805; 82947; 85025; 96361; 96374; 96375; 99284; J2405; J7030

== ENCOUNTER 2019-08-06 20:40 | Emergency (ER) | payer OTHER, SELFPAY ==
--- OUTSIDE RECORDS SUMMARY | 2019-08-06 20:46 | XMS REPORT | Summary of Care ---
:1990 Author Organization [facility] Address [address] [place] [id number] Care Team Providers Name Role Phone Meggan Ray MD Primary Care Provider Reason for Visit Reason Comments Assessment Encounter Details Date Type Department Care Team Description 07/22/2019 Telephone [facility] Pediatric and Meggan Leger MD Assessment Adult Primary Care- [address] [place] [address] [place] [address] , [address] [place] [address] Allergies No Known Allergiesdocumented as of this encounter (statuses as of 07/23/2019) Medications Medication Sig Dispensed Refills Start Date End Date Status clindamycin 300 mg TAKE 1 CAPSULE BY 0 01/04/2019 Active capsule MOUTH THREE TIMES DAILY mupirocin 2 % ointment APPLY ON THE SKIN 1 9 Active TWICE A DAY Insulin Glargine inject 30-35 Units 0 01/08/2019 Active (LANTUS SOLOSTAR U-100 under the skin 2 INSULIN) 100 unit/mL (two) times daily. (3 mL) injection insulin aspart inject under the 0 Active (NOVOLOG FLEXPEN U-100 skin. Per sliding INSULIN SC) scale and carb intake cephALEXin 500 mg TAKE 1 CAPSULE BY 0 01/24/2019 Active capsule MOUTH THREE TIMES DAILY documented as of this encounter (statuses as of 07/23/2019) Active Problems Problem Noted Date Attention deficit hyperactivity disorder (ADHD) 2006 Overview: ICD10 Diagnosis Term Rack Pusher Utility Uncontrolled type 1 diabetes mellitus 10/01/2005 Overview: Dx age 4 ICD10 Diagnosis Term Rack Pusher Utility Trichomoniasis documented as of this encounter (statuses as of 07/23/2019) Resolved Problems Problem Noted Date Resolved Date DKA (diabetic ketoacidoses) 07/29/2015 01/29/2019 documented as of this encounter (statuses as of 07/23/2019) Immunizations Name Administration Dates Next Due Influenza Virus Vaccine 02/15/2008, 02/19/2004 documented as of this encounter Social History Tobacco Use Types Packs/Day Years Used Date Never Smoker Smokeless Tobacco: Never Used Comments: on and off Alcohol Use Drinks/Week oz/Week Comments No Sex Assigned at Date Recorded Not on file Job Start Date Occupation Industry Not on file Not on file Not on file Travel History Travel Start Travel End No recent travel history available. documented as of this encounter Last Filed Vital Signs Not on filedocumented in this encounter Plan of Treatment Health Maintenance Due Date Last Done Comments VARICELLA VACCINES (1 of 2 - 1991 2-dose childhood series) PNEUMOCOCCAL 0-64 YEARS COMBINED 1996 SERIES (1 of 1 - PPSV23) EYE EXAM 2000 DTaP,Tdap,and Td Vaccines (1 - 2001 Tdap) FOOT EXAM 2008 URINE MICROALBUMIN 02/17/2009 02/18/2008, 03/27/2007, 05/11/2006, Additional history exists LDL-C 08/06/2009 08/06/2008, 08/06/2008, 05/11/2006, Additional history exists HgA1C 01/12/2012 07/12/2011, 08/06/2008, 02/15/2008, Additional history exists CREATININE (SERUM) 07/30/2016 07/31/2015, 07/30/2015, 07/30/2015, Additional history exists INFLUENZA VACCINE (#1) 2018 02/15/2008, 02/19/2004 documented as of this encounter Results Not on filedocumented in this encounter
--- OUTSIDE RECORDS SUMMARY | 2019-08-06 20:46 | XMS REPORT ---
:1990 Author Organization [facility] t Address [address] [place] [address] Care Team Providers Name Role Phone INNA MARTINEZ Unavailable Unavailable Problems This patient has no known problems. Allergies, Adverse Reactions, Alerts This patient has no known allergies or adverse reactions. Medications This patient has no known medications. Results Test Description Test Time Test Comments Text Results Atomic Results Result Comments BLOOD CULTURE 2018-10-20 02:01:00 Test Item Value Reference Range Comments CULTURE (BEAKER) (test code = 1095) No growth in 5 days BLOOD [id number] 02:01:00 Test Item Value Reference Range Comments CULTURE (BEAKER) (test code = 1095) No growth in 5 days MRSA [id number] 09:59:00 Test Item Value Reference Range Comments CULTURE (BEAKER) (test code = 1095) No MRSA isolated TISSUE [id number] 15:35:00Surgical Pathology Report Case: [id number] Authorizing Provider: Won Randall MD Collected: 10/17/2018 0823 Ordering Location: [address] Received: 10/17/2018 1401 Service Pathologist: Natividad Shrestha MD Specimens: A) - Duodenum, random bx B) -Biopsy, Gastric, body and antrum A. DUODENUM , RANDOM BIOPSY- NO DIAGNOSTIC ALTERATIONB. STOMACH, BODY AND ANTRUM, BIOPSY- CHRONIC INACTIVE GASTRITIS, MILD- NO INTESTINAL METAPLASIA, DYSPLASIA OR INVASIVE CARCINOMA IDENTIIFIED- NO HELICOBACTER PYLORI LIKE ORGANISMS IDENTIFIED ON WARTHIN STARRY STAIN Signing Pathologist Direct Phone Line: [phone] signed by Natividad Shrestha MD on 10/18/2018 at 3:35 [id number] x 2, [phone] and postop diagnosis: intractable vomiting, presence of nausea not specified, unspecified vomiting typeA. Duodenum random biopsy; B. Biopsy, gastric, body and antrumA. Received in formalin labeled with the patient's name, accession number and "duodenum" are three irregular woo soft tissue fragments ranging 0.1-0.3 cm which are submitted in toto in A1. B. .Received in formalin labeled with the patient'sname, accession number and "biopsy, gastric" are four irregular woo soft tissue fragments ranging 0.2-0.3 cm which are submitted in toto in B1. CG/pl Performed.The interpretation of this case included the use of immunohistochemistry or special stains.Warthin Starry- negativeControl Slides Examined: In-house known positive controls were evaluated along with the test tissue. These control slides run alongside of the patients sample show appropriate staining. Internal positive and negative controls when available are evaluated Immunohistochemistry technical testing was performed at [facility]ology [facility] where it was developed and its performance characteristics weredetermined. It has not been cleared or approved by the U.S. Food and Drug Administration. The FDA has determined that such clearance or approval is not necessary. The test is used for clinical purposes. It should not be regarded as investigational or for research. This laboratory is certified under the Clinical Laboratory Improvement Amendments of 1988 (CLIA-88) as qualified to perform high complexity clinical laboratory testing.POCT-GLUCOSE [id number] 10:09:00 Test Item Value Reference Range Comments POC-GLUCOSE METER (BEAKER) 118 mg/dL 70-110 TESTE D AT [facility] [address] (test code = 1538) [facility] [address] [id number] 06:56:00 Test Item Value Reference Range Comments MAGNESIUM (BEAKER) (test code = 627) 2.0 mg/dL 1.6-2.6 BASIC METABOLIC [id number] 06:40:00 Test Item Value Reference Range Comments SODIUM (BEAKER) (test 141 meq/L 136-145 code = 381) POTASSIUM (BEAKER) (test 3.4 meq/L 3.5-5.1 code = 379) CHLORIDE (BEAKER) (test 106 meq/L 98-107 code = 382) CO2 (BEAKER) (test code = 28 meq/L 22-29 355) BLOOD UREA NITROGEN 10 mg/dL 7-21 (BEAKER) (test code = 354) CREATININE (BEAKER) (test 0.95 mg/dL 0.57-1.25 code = 358) GLUCOSE RANDOM (BEAKER) 249 mg/dL 70-105 (test code = 652) CALCIUM (BEAKER) (test 8.5 mg/dL 8.4-10.2 code = 697) EGFR (BEAKER) (test code 94 mL/min/1.73 sq m EST IMATED GFR IS NOT = 1092) ACCURATE CREA TININE CLEARANCE IN PRE DICTING GLOMERULAR FILTR ATION RATE. ESTIMATED GFR IS NOT APPLICABLE F OR DIALYSIS PATIENT S. POCT-GLUCOSE [id number] 20:40:00 Test Item Value Reference Range Comments POC-GLUCOSE METER (BEAKER) 172 mg/dL 70-110 TESTE D AT [address] (test code = 1538) [place] [address] POCT-GLUCOSE [id number] 18:25:00 Test Item Value Reference Range Comments POC-GLUCOSE METER (BEAKER) 200 mg/dL 70-110 TESTE D AT [address] (test code = 1538) [place] [address] POCT-GLUCOSE [id number] 15:26:00 Test Item Value Reference Range Comments POC-GLUCOSE METER (BEAKER) 232 mg/dL 70-110 TESTE D AT [address] (test code = 1538) [place] [address] POCT-GLUCOSE [id number] 13:00:00 Test Item Value Reference Range Comments POC-GLUCOSE METER (BEAKER) 228 mg/dL 70-110 TESTE D AT [address] (test code = 1538) [place] [address] POCT-GLUCOSE [id number] 10:43:00 Test Item Value Reference Range Comments POC-GLUCOSE METER (BEAKER) 207 mg/dL 70-110 TESTE D AT [address] (test code = 1538) [place] [address] POCT-GLUCOSE [id number] 09:16:00 Test Item Value Reference Range Comments POC-GLUCOSE METER (BEAKER) 269 mg/dL 70-110 TESTE D AT [address] (test code = 1538) [place] [address] POCT-GLUCOSE [id number] 07:26:00 Test Item Value Reference Range Comments POC-GLUCOSE METER (BEAKER) 239 mg/dL 70-110 TESTE D AT [facility] [address] (test code = 1538) [place] [address] BASIC METABOLIC [id number] 06:42:00 Test Item Value Reference Range Comments SODIUM (BEAKER) (test 143 meq/L 136-145 code = 381) POTASSIUM (BEAKER) (test 4.1 meq/L 3.5-5.1 code = 379) CHLORIDE (BEAKER) (test 108 meq/L 98-107 code = 382) CO2 (BEAKER) (test code = 28 meq/L 22-29 355) BLOOD UREA NITROGEN 8 mg/dL 7-21 (BEAKER) (test code = 354) CREATININE (BEAKER) (test 1.12 mg/dL 0.57-1.25 code = 358) GLUCOSE RANDOM (BEAKER) 261 mg/dL 70-105 (test code = 652) CALCIUM (BEAKER) (test 8.7 mg/dL 8.4-10.2 code = 697) EGFR (BEAKER) (test code 78 mL/min/1.73 sq m EST IMATED GFR IS NOT = 1092) ACCURATE CREA TININE CLEARANCE IN PRE DICTING GLOMERULAR FILTR ATION RATE. ESTIMATED GFR IS NOT APPLICABLE F OR DIALYSIS PATIENT S. [id number] 06:42:00 Test Item Value Reference Range Comments PHOSPHORUS (BEAKER) (test code = 604) 2.0 mg/dL 2.3-4.7 [id number] 06:42:00 Test Item Value Reference Range Comments MAGNESIUM (BEAKER) (test code = 627) 2.3 mg/dL 1.6-2.6 CBC W/PLT COUNT & AUTO [id number] 06:34:00 Test Item Value Reference Range Comments WHITE BLOOD CELL COUNT (BEAKER) (test code = 7.3 K/ L 3.5 -10.5 775) RED BLOOD CELL COUNT (BEAKER) (test code = 761) 4.40 M/ L 4.63-6.08 HEMOGLOBIN (BEAKER) (test code = 410) 13.4 GM/DL 13.7-17.5 HEMATOCRIT (BEAKER) (test code = 411) 38.4 % 40.1-51.0 MEAN CORPUSCULAR VOLUME (BEAKER) (test code = 87.3 fL 79 .0-92.2 753) MEAN CORPUSCULAR HEMOGLOBIN (BEAKER) (test code 30.5 pg 25.7-32.2 = 751) MEAN CORPUSCULAR HEMOGLOBIN CONC (BEAKER) (test 34.9 GM/DL 32.3-36.5 code = 752) RED CELL DISTRIBUTION WIDTH (BEAKER) (test code 12.0 % 11.6-14.4 = 412) PLATELET COUNT (BEAKER) (test code = 756) 122 K/CU MM 150-45 0 MEAN PLATELET VOLUME (BEAKER) (test code = 754) 9.4 fL 9.4-12.4 NUCLEATED RED BLOOD CELLS (BEAKER) (test code = 0 /100 WBC 0-0 413) NEUTROPHILS RELATIVE PERCENT (BEAKER) (test code 70 % = 429) LYMPHOCYTES RELATIVE PERCENT (BEAKER) (test code 22 % = 430) MONOCYTES RELATIVE PERCENT (BEAKER) (test code = 7 % 431) EOSINOPHILS RELATIVE PERCENT (BEAKER) (test code 0 % = 432) BASOPHILS RELATIVE PERCENT (BEAKER) (test code = 0 % 437) NEUTROPHILS ABSOLUTE COUNT (BEAKER) (test code = 5.08 K/ L 1.78-5.38 670) LYMPHOCYTES ABSOLUTE COUNT (BEAKER) (test code = 1.60 K/ L 1.32-3.57 414) MONOCYTES ABSOLUTE COUNT (BEAKER) (test code = 0.54 K/ L 0 .30-0.82 415) EOSINOPHILS ABSOLUTE COUNT (BEAKER) (test code = 0.02 K/ L 0.04-0.54 416) BASOPHILS ABSOLUTE COUNT (BEAKER) (test code = 0.02 K/ L 0 .01-0.08 417) IMMATURE GRANULOCYTES-RELATIVE PERCENT (BEAKER) 0 % 0-1 (test code = 2801) POCT-GLUCOSE [id number] 22:23:00 Test Item Value Reference Range Comments POC-GLUCOSE METER (BEAKER) 237 mg/dL 70-110 TESTE D AT [facility] [address] (test code = 1538) [facility] [address] POCT-GLUCOSE [id number] 20:39:00 Test Item Value Reference Range Comments POC-GLUCOSE METER (BEAKER) 298 mg/dL 70-110 TESTE D AT [address] (test code = 1538) [place] [address] POCT-GLUCOSE [id number] 17:49:00 Test Item Value Reference Range Comments POC-GLUCOSE METER (BEAKER) 255 mg/dL 70-110 TESTE D AT [address] (test code = 1538) [place] [address] POCT-GLUCOSE [id number] 13:35:00 Test Item Value Reference Range Comments POC-GLUCOSE METER (BEAKER) 190 mg/dL 70-110 TESTE D AT [address] (test code = 1538) [place] [address] POCT-GLUCOSE [id number] 12:31:00 Test Item Value Reference Range Comments POC-GLUCOSE METER (BEAKER) 204 mg/dL 70-110 TESTE D AT [address] (test code = 1538) [place] [address] POCT-GLUCOSE [id number] 11:38:00 Test Item Value Reference Range Comments POC-GLUCOSE METER (BEAKER) 165 mg/dL 70-110 TESTE D AT [address] (test code = 1538) [place] [address] POCT-GLUCOSE [id number] 10:35:00 Test Item Value Reference Range Comments POC-GLUCOSE METER (BEAKER) 231 mg/dL 70-110 TESTE D AT [address] (test code = 1538) [place] [address] BASIC METABOLIC [id number] 09:52:00 Test Item Value Reference Range Comments SODIUM (BEAKER) (test 148 meq/L 136-145 code = 381) POTASSIUM (BEAKER) (test 3.4 meq/L 3.5-5.1 code = 379) CHLORIDE (BEAKER) (test 116 meq/L 98-107 code = 382) CO2 (BEAKER) (test code = 26 meq/L 22-29 355) BLOOD UREA NITROGEN 7 mg/dL 7-21 (BEAKER) (test code = 354) CREATININE (BEAKER) (test 1.26 mg/dL 0.57-1.25 code = 358) GLUCOSE RANDOM (BEAKER) 208 mg/dL 70-105 (test code = 652) CALCIUM (BEAKER) (test 8.3 mg/dL 8.4-10.2 code = 697) EGFR (BEAKER) (test code 68 mL/min/1.73 sq m EST IMATED GFR IS NOT = 1092) ACCURATE CREA TININE CLEARANCE IN PRE DICTING GLOMERULAR FILTR ATION RATE. ESTIMATED GFR IS NOT APPLICABLE F OR DIALYSIS PATIENT S. [id number] 09:52:00 Test Item Value Reference Range Comments PHOSPHORUS (BEAKER) (test code = 604) 2.0 mg/dL 2.3-4.7 [id number] 09:52:00 Test Item Value Reference Range Comments MAGNESIUM (BEAKER) (test code = 627) 2.2 mg/dL 1.6-2.6 POCT-GLUCOSE [id number] 09:28:00 Test Item Value Reference Range Comments POC-GLUCOSE METER (BEAKER) 213 mg/dL 70-110 TESTE D AT [address] (test code = 1538) [place] [address] RAD, ABDOMEN/KUB, 1 VIEW [id number] 09:12:00Reason for exam:->recurrent vomitingShould this be performed at the bedside?->YesFINAL REPORT CLINICAL HISTORY: recurrent vomiting TECHNIQUE: Supine abdomen CO MPARISON: None IMPRESSION: The bowel gas pattern is nonspecific. Free air and air-fluid levels are not seen but cannot be definitively excluded on the supine view. There is a 3 mm phlebolith or stone in the left hemipelvis. Signed: Luis Shetty MDReport Verified Date/Time: 10/16/2018 09:12:50 Reading Location: [facility] Radiology Reading Room POCT-GLUCOSE [id number] 08:41:00 Test Item Value Reference Range Comments POC-GLUCOSE METER (BEAKER) 206 mg/dL 70-110 TESTE D AT [address] (test code = 1538) [place] [address] POCT-GLUCOSE [id number] 07:46:00 Test Item Value Reference Range Comments POC-GLUCOSE METER (BEAKER) 203 mg/dL 70-110 TESTE D AT [place] [address] [address] (test code = 1538) [place] [address] [id number] 07:14:00 Test Item Value Reference Range Comments MAGNESIUM (BEAKER) (test code = 2.2 mg/dL 1.6-2.6 Specimen slightly hemolyzed 627) [id number] 07:14:00 Test Item Value Reference Range Comments PHOSPHORUS (BEAKER) (test code 2.4 mg/dL 2.3-4.7 S pecimen slightly hemolyzed = 604) BASIC METABOLIC [id number] 07:14:00 Test Item Value Reference Range Comments SODIUM (BEAKER) (test 149 meq/L 136-145 code = 381) POTASSIUM (BEAKER) (test 3.6 meq/L 3.5-5.1 Specime n slightly code = 379) hemolyzed CHLORIDE (BEAKER) (test 118 meq/L 98-107 code = 382) CO2 (BEAKER) (test code = 22 meq/L 22-29 355) BLOOD UREA NITROGEN 8 mg/dL 7-21 (BEAKER) (test code = 354) CREATININE (BEAKER) (test 1.26 mg/dL 0.57-1.25 Specim en slightly code = 358) hemolyzed GLUCOSE RANDOM (BEAKER) 185 mg/dL 70-105 (test code = 652) CALCIUM (BEAKER) (test 8.2 mg/dL 8.4-10.2 code = 697) EGFR (BEAKER) (test code 68 mL/min/1.73 sq m EST IMATED GFR IS NOT = 1092) ACCURATE CREA TININE CLEARANCE IN PRE DICTING GLOMERULAR FILTR ATION RATE. ESTIMATED GFR IS NOT APPLICABLE F OR DIALYSIS PATIENT S. LACTIC ACID, [id number] 06:58:00 Test Item Value Reference Range Comments LACTATE BLOOD ARTERIAL (2) (BEAKER) (test code = 1.0 mmol/L 0.5-2.2 2874) CBC W/PLT COUNT & AUTO [id number] 06:47:00 Test Item Value Reference Range Comments WHITE BLOOD CELL COUNT (BEAKER) (test code = 775) 8.8 K/ L 3.5-10.5 RED BLOOD CELL COUNT (BEAKER) (test code = 761) 3.71 M/ L 4.63-6.08 HEMOGLOBIN (BEAKER) (test code = 410) 11.2 GM/DL 13.7-17.5 HEMATOCRIT (BEAKER) (test code = 411) 33.1 % 40.1-51.0 MEAN CORPUSCULAR VOLUME (BEAKER) (test code = 89.2 fL 79 .0-92.2 753) MEAN CORPUSCULAR HEMOGLOBIN (BEAKER) (test code = 30.2 pg 25.7-32.2 751) MEAN CORPUSCULAR HEMOGLOBIN CONC (BEAKER) (test 33.8 GM/DL 32.3-36.5 code = 752) RED CELL DISTRIBUTION WIDTH (BEAKER) (test code = 13.2 % 11.6-14.4 412) PLATELET COUNT (BEAKER) (test code = 756) 52 K/CU MM 150-45 0 MEAN PLATELET VOLUME (BEAKER) (test code = 754) 10.7 fL 9.4-12.4 NUCLEATED RED BLOOD CELLS (BEAKER) (test code = 0 /100 WBC 0-0 413) NEUTROPHILS RELATIVE PERCENT (BEAKER) (test code 85 % = 429) LYMPHOCYTES RELATIVE PERCENT (BEAKER) (test code 10 % = 430) MONOCYTES RELATIVE PERCENT (BEAKER) (test code = 5 % 431) EOSINOPHILS RELATIVE PERCENT (BEAKER) (test code 0 % = 432) BASOPHILS RELATIVE PERCENT (BEAKER) (test code = 0 % 437) NEUTROPHILS ABSOLUTE COUNT (BEAKER) (test code = 7.43 K/ L 1.78-5.38 670) LYMPHOCYTES ABSOLUTE COUNT (BEAKER) (test code = 0.84 K/ L 1.32-3.57 414) MONOCYTES ABSOLUTE COUNT (BEAKER) (test code = 0.45 K/ L 0 .30-0.82 415) EOSINOPHILS ABSOLUTE COUNT (BEAKER) (test code = 0.00 K/ L 0.04-0.54 416) BASOPHILS ABSOLUTE COUNT (BEAKER) (test code = 0.02 K/ L 0 .01-0.08 417) IMMATURE GRANULOCYTES-RELATIVE PERCENT (BEAKER) 0 % 0-1 (test code = 2801) HEMOGLOBIN AND [id number] 06:42:00 Test Item Value Reference Range Comments HEMOGLOBIN (BEAKER) (test code = 410) 11.2 GM/DL 13.7-17.5 HEMATOCRIT (BEAKER) (test code = 411) 33.1 % 40.1-51.0 POCT-GLUCOSE [id number] 06:22:00 Test Item Value Reference Range Comments POC-GLUCOSE METER (BEAKER) 193 mg/dL 70-110 TESTE D AT [address] (test code = 1538) [place] [address] POCT-GLUCOSE [id number] 05:31:00 Test Item Value Reference Range Comments POC-GLUCOSE METER (BEAKER) 185 mg/dL 70-110 TESTE D AT [address] (test code = 1538) [place] [address] POCT-GLUCOSE [id number] 04:02:00 Test Item Value Reference Range Comments POC-GLUCOSE METER (BEAKER) 191 mg/dL 70-110 TESTE D AT [address] (test code = 1538) [place] [address] POCT-GLUCOSE [id number] 03:08:00 Test Item Value Reference Range Comments POC-GLUCOSE METER (BEAKER) 170 mg/dL 70-110 TESTE D AT [address] (test code = 1538) [place] [address] POCT-GLUCOSE [id number] 02:24:00 Test Item Value Reference Range Comments POC-GLUCOSE METER (BEAKER) 155 mg/dL 70-110 TESTE D AT [address] (test code = 1538) [place] [address] POCT-GLUCOSE [id number] 01:43:00 Test Item Value Reference Range Comments POC-GLUCOSE METER (BEAKER) 158 mg/dL 70-110 TESTE D AT [address] (test code = 1538) [place] [address] BASIC METABOLIC [id number] 00:59:00 Test Item Value Reference Range Comments SODIUM (BEAKER) (test 148 meq/L 136-145 code = 381) POTASSIUM (BEAKER) (test 3.3 meq/L 3.5-5.1 Specime n slightly code = 379) hemolyzed CHLORIDE (BEAKER) (test 118 meq/L 98-107 code = 382) CO2 (BEAKER) (test code = 20 meq/L 22-29 355) BLOOD UREA NITROGEN 9 mg/dL 7-21 (BEAKER) (test code = 354) CREATININE (BEAKER) (test 1.35 mg/dL 0.57-1.25 Specim en slightly code = 358) hemolyzed GLUCOSE RANDOM (BEAKER) 190 mg/dL 70-105 (test code = 652) CALCIUM (BEAKER) (test 7.8 mg/dL 8.4-10.2 code = 697) EGFR (BEAKER) (test code 63 mL/min/1.73 sq m EST IMATED GFR IS NOT = 1092) ACCURATE CREA TININE CLEARANCE IN PRE DICTING GLOMERULAR FILTR ATION RATE. ESTIMATED GFR IS NOT APPLICABLE F OR DIALYSIS PATIENT S. [id number] 00:58:00 Test Item Value Reference Range Comments MAGNESIUM (BEAKER) (test code = 2.4 mg/dL 1.6-2.6 Specimen slightly hemolyzed 627) [id number] 00:58:00 Test Item Value Reference Range Comments PHOSPHORUS (BEAKER) (test code 1.6 mg/dL 2.3-4.7 S pecimen slightly hemolyzed = 604) HEMOGLOBIN AND [id number] 00:31:00 Test Item Value Reference Range Comments HEMOGLOBIN (BEAKER) (test code = 410) 11.9 GM/DL 13.7-17.5 HEMATOCRIT (BEAKER) (test code = 411) 34.5 % 40.1-51.0 POCT-GLUCOSE [id number] 00:30:00 Test Item Value Reference Range Comments POC-GLUCOSE METER (BEAKER) 188 mg/dL 70-110 TESTE D AT [address] (test code = 1538) [place] [address] POCT-GLUCOSE [id number] 23:07:00 Test Item Value Reference Range Comments POC-GLUCOSE METER (BEAKER) 191 mg/dL 70-110 TESTE D AT [address] (test code = 1538) [place] [address] POCT-GLUCOSE [id number] 22:03:00 Test Item Value Reference Range Comments POC-GLUCOSE METER (BEAKER) 205 mg/dL 70-110 TESTE D AT [address] (test code = 1538) [place] [address] BASIC METABOLIC [id number] 21:06:00 Test Item Value Reference Range Comments SODIUM (BEAKER) (test 148 meq/L 136-145 code = 381) POTASSIUM (BEAKER) (test 3.5 meq/L 3.5-5.1 code = 379) CHLORIDE (BEAKER) (test 118 meq/L 98-107 code = 382) CO2 (BEAKER) (test code = 18 meq/L 22-29 355) BLOOD UREA NITROGEN 10 mg/dL 7-21 (BEAKER) (test code = 354) CREATININE (BEAKER) (test 1.38 mg/dL 0.57-1.25 code = 358) GLUCOSE RANDOM (BEAKER) 180 mg/dL 70-105 (test code = 652) CALCIUM (BEAKER) (test 8.4 mg/dL 8.4-10.2 code = 697) EGFR (BEAKER) (test code 61 mL/min/1.73 sq m EST IMATED GFR IS NOT = 1092) ACCURATE CREA TININE CLEARANCE IN PRE DICTING GLOMERULAR FILTR ATION RATE. ESTIMATED GFR IS NOT APPLICABLE F OR DIALYSIS PATIENT S. VANCOMYCIN LEVEL, [id number] 21:04:00 Test Item Value Reference Range Comments VANCOMYCIN TROUGH (BEAKER) (test code = 522) 5.8 ug/mL 10. 0-20.0 If level is >20, hold scheduled vancomycin dose and contact PharmD/MD. Thank youPOCT-GLUCOSE [id number] 21:00:00 Test Item Value Reference Range Comments POC-GLUCOSE METER (BEAKER) 202 mg/dL 70-110 TESTE D AT [address] (test code = 1538) [place] [address] POCT-GLUCOSE [id number] 20:08:00 Test Item Value Reference Range Comments POC-GLUCOSE METER (BEAKER) 180 mg/dL 70-110 TESTE D AT [address] (test code = 1538) [place] [address] POCT-GLUCOSE [id number] 18:39:00 Test Item Value Reference Range Comments POC-GLUCOSE METER (BEAKER) 175 mg/dL 70-110 TESTE D AT [address] (test code = 1538) [place] [address] POCT-GLUCOSE [id number] 17:22:00 Test Item Value Reference Range Comments POC-GLUCOSE METER (BEAKER) 209 mg/dL 70-110 TESTE D AT [facility] [address] [facility] (test code = 1538) [facility] [address] URINALYSIS W/ REFLEX URINE [id number] 16:58:00 Test Item Value Reference Range Comments COLOR (BEAKER) (test code = 470) Light Yellow CLARITY (BEAKER) (test code = 469) Clear SPECIFIC GRAVITY UA (BEAKER) (test code = 468) 1.015 1 .001-1.035 PH UA (BEAKER) (test code = 467) 5.5 5.0-8.0 PROTEIN UA (BEAKER) (test code = 464) 30 mg/dL Negative GLUCOSE UA (BEAKER) (test code = 365) >1000 mg/dL Negative KETONES UA (BEAKER) (test code = 371) 150 mg/dL Negative BILIRUBIN UA (BEAKER) (test code = 462) Negative Negative BLOOD UA (BEAKER) (test code = 461) Small Negative NITRITE UA (BEAKER) (test code = 465) Negative Negative LEUKOCYTE ESTERASE UA (BEAKER) (test code = Negative Nega tive 466) UROBILINOGEN UA (BEAKER) (test code = 463) 0.2 mg/dL 0.2-1 .0 RBC UA (BEAKER) (test code = 519) < /HPF WBC UA (BEAKER) (test code = 520) 1 /HPF MUCUS (BEAKER) (test code = 1574) Rare SOURCE(BEAKER) (test code = 2795) HEMOGLOBIN AND [id number] 16:36:00 Test Item Value Reference Range Comments HEMOGLOBIN (BEAKER) (test code = 410) 13.0 GM/DL 13.7-17.5 HEMATOCRIT (BEAKER) (test code = 411) 37.3 % 40.1-51.0 POCT-GLUCOSE [id number] 16:20:00 Test Item Value Reference Range Comments POC-GLUCOSE METER (BEAKER) 217 mg/dL 70-110 TESTE D AT [facility] [address] [facility] (test code = 1538) [place] [address] BASIC METABOLIC [id number] 16:19:00 Test Item Value Reference Range Comments SODIUM (BEAKER) (test 150 meq/L 136-145 code = 381) POTASSIUM (BEAKER) (test 3.6 meq/L 3.5-5.1 code = 379) CHLORIDE (BEAKER) (test 119 meq/L 98-107 code = 382) CO2 (BEAKER) (test code = 16 meq/L 22-29 355) BLOOD UREA NITROGEN 14 mg/dL 7-21 (BEAKER) (test code = 354) CREATININE (BEAKER) (test 1.53 mg/dL 0.57-1.25 code = 358) GLUCOSE RANDOM (BEAKER) 210 mg/dL 70-105 (test code = 652) CALCIUM (BEAKER) (test 7.9 mg/dL 8.4-10.2 code = 697) EGFR (BEAKER) (test code 54 mL/min/1.73 sq m EST IMATED GFR IS NOT = 1092) ACCURATE CREA TININE CLEARANCE IN PRE DICTING GLOMERULAR FILTR ATION RATE. ESTIMATED GFR IS NOT APPLICABLE F OR DIALYSIS PATIENT S. [id number] 16:15:00 Test Item Value Reference Range Comments PHOSPHORUS (BEAKER) (test code = 604) 3.4 mg/dL 2.3-4.7 [id number] 16:15:00 Test Item Value Reference Range Comments MAGNESIUM (BEAKER) (test code = 627) 2.1 mg/dL 1.6-2.6 POCT-GLUCOSE [id number] 15:13:00 Test Item Value Reference Range Comments POC-GLUCOSE METER (BEAKER) 205 mg/dL 70-110 TESTE D AT [address] (test code = 1538) [place] [address] POCT-GLUCOSE [id number] 14:17:00 Test Item Value Reference Range Comments POC-GLUCOSE METER (BEAKER) 154 mg/dL 70-110 TESTE D AT [address] (test code = 1538) [place] [address] POCT-GLUCOSE [id number] 13:34:00 Test Item Value Reference Range Comments POC-GLUCOSE METER (BEAKER) 144 mg/dL 70-110 TESTE D AT [address] (test code = 1538) [place] [address] BASIC METABOLIC [id number] 12:52:00 Test Item Value Reference Range Comments SODIUM (BEAKER) (test 154 meq/L 136-145 code = 381) POTASSIUM (BEAKER) (test 3.6 meq/L 3.5-5.1 code = 379) CHLORIDE (BEAKER) (test 125 meq/L 98-107 code = 382) CO2 (BEAKER) (test code = 17 meq/L 22-29 355) BLOOD UREA NITROGEN 16 mg/dL 7-21 (BEAKER) (test code = 354) CREATININE (BEAKER) (test 1.49 mg/dL 0.57-1.25 code = 358) GLUCOSE RANDOM (BEAKER) 165 mg/dL 70-105 (test code = 652) CALCIUM (BEAKER) (test 7.8 mg/dL 8.4-10.2 code = 697) EGFR (BEAKER) (test code 56 mL/min/1.73 sq m EST IMATED GFR IS NOT = 1092) ACCURATE CREA TININE CLEARANCE IN PRE DICTING GLOMERULAR FILTR ATION RATE. ESTIMATED GFR IS NOT APPLICABLE F OR DIALYSIS PATIENT S. [id number] 12:45:00 Test Item Value Reference Range Comments PHOSPHORUS (BEAKER) (test code = 604) 1.8 mg/dL 2.3-4.7 [id number] 12:45:00 Test Item Value Reference Range Comments MAGNESIUM (BEAKER) (test code = 627) 2.4 mg/dL 1.6-2.6 BLOOD GAS, [id number] 12:26:00 Test Item Value Reference Range Comments PH ARTERIAL (BEAKER) (test code = 383) 7.40 7.35-7.45 PCO2 ARTERIAL (BEAKER) (test code = 384) 30 mmHg 35-45 PO2 ARTERIAL (BEAKER) (test code = 385) 111 mmHg 80-90 O2 SATURATION ARTERIAL (BEAKER) (test code = 98.1 % 96. 0-97.0 386) HCO3 ARTERIAL (BEAKER) (test code = 388) 18 mmol/L 21-29 BASE EXCESS ARTERIAL (BEAKER) (test code = 387) -5.5 mmol/L -2.0-3.0 PATIENT TEMPERATURE (BEAKER) (test code = 1818) 37.1 C FIO2 (BEAKER) (test code = 1819) 21.0 % HEMOGLOBIN AND [id number] 12:24:00 Test Item Value Reference Range Comments HEMOGLOBIN (BEAKER) (test code = 410) 11.9 GM/DL 13.7-17.5 HEMATOCRIT (BEAKER) (test code = 411) 34.2 % 40.1-51.0 POCT-GLUCOSE [id number] 12:23:00 Test Item Value Reference Range Comments POC-GLUCOSE METER (BEAKER) 170 mg/dL 70-110 TESTE D AT [address] (test code = 1538) [place] [address] POCT-GLUCOSE [id number] 10:54:00 Test Item Value Reference Range Comments POC-GLUCOSE METER (BEAKER) 182 mg/dL 70-110 TESTE D AT [address] (test code = 1538) [place] [address] BASIC METABOLIC [id number] 09:55:00 Test Item Value Reference Range Comments SODIUM (BEAKER) (test 150 meq/L 136-145 code = 381) POTASSIUM (BEAKER) (test 3.7 meq/L 3.5-5.1 code = 379) CHLORIDE (BEAKER) (test 121 meq/L 98-107 code = 382) CO2 (BEAKER) (test code = 14 meq/L 22-29 355) BLOOD UREA NITROGEN 18 mg/dL 7-21 (BEAKER) (test code = 354) CREATININE (BEAKER) (test 1.63 mg/dL 0.57-1.25 code = 358) GLUCOSE RANDOM (BEAKER) 203 mg/dL 70-105 (test code = 652) CALCIUM (BEAKER) (test 7.6 mg/dL 8.4-10.2 code = 697) EGFR (BEAKER) (test code 51 mL/min/1.73 sq m EST IMATED GFR IS NOT = 1092) ACCURATE CREA TININE CLEARANCE IN PRE DICTING GLOMERULAR FILTR ATION RATE. ESTIMATED GFR IS NOT APPLICABLE F OR DIALYSIS PATIENT S. POCT-GLUCOSE [id number] 09:44:00 Test Item Value Reference Range Comments POC-GLUCOSE METER (BEAKER) 217 mg/dL 70-110 TESTE D AT [address] (test code = 1538) [place] [address] BLOOD GAS, [id number] 08:28:00 Test Item Value Reference Range Comments PH ARTERIAL (BEAKER) (test code = 383) 7.38 7.35-7.45 PCO2 ARTERIAL (BEAKER) (test code = 384) 27 mmHg 35-45 PO2 ARTERIAL (BEAKER) (test code = 385) 82 mmHg 80-90 O2 SATURATION ARTERIAL (BEAKER) (test code = 96.1 % 96. 0-97.0 386) HCO3 ARTERIAL (BEAKER) (test code = 388) 15 mmol/L 21-29 BASE EXCESS ARTERIAL (BEAKER) (test code = 387) -8.4 mmol/L -2.0-3.0 PATIENT TEMPERATURE (BEAKER) (test code = 1818) 37.0 C FIO2 (BEAKER) (test code = 1819) 21.0 % POCT-GLUCOSE [id number] 08:24:00 Test Item Value Reference Range Comments POC-GLUCOSE METER (BEAKER) 207 mg/dL 70-110 TESTE D AT [address] (test code = 1538) [place] [address] POCT-GLUCOSE [id number] 06:39:00 Test Item Value Reference Range Comments POC-GLUCOSE METER (BEAKER) 203 mg/dL 70-110 TESTE D AT [address] (test code = 1538) [place] [address] BASIC METABOLIC [id number] 06:37:00 Test Item Value Reference Range Comments SODIUM (BEAKER) (test 153 meq/L 136-145 code = 381) POTASSIUM (BEAKER) (test 3.5 meq/L 3.5-5.1 code = 379) CHLORIDE (BEAKER) (test 125 meq/L 98-107 code = 382) CO2 (BEAKER) (test code = 14 meq/L 22-29 355) BLOOD UREA NITROGEN 19 mg/dL 7-21 (BEAKER) (test code = 354) CREATININE (BEAKER) (test 1.57 mg/dL 0.57-1.25 code = 358) GLUCOSE RANDOM (BEAKER) 194 mg/dL 70-105 (test code = 652) CALCIUM (BEAKER) (test 7.5 mg/dL 8.4-10.2 code = 697) EGFR (BEAKER) (test code 53 mL/min/1.73 sq m EST IMATED GFR IS NOT = 1092) ACCURATE CREA TININE CLEARANCE IN PRE DICTING GLOMERULAR FILTR ATION RATE. ESTIMATED GFR IS NOT APPLICABLE F OR DIALYSIS PATIENT S. POCT-GLUCOSE [id number] 05:26:00 Test Item Value Reference Range Comments POC-GLUCOSE METER (BEAKER) 253 mg/dL 70-110 TESTE D AT [facility] [address] (test code = 1538) [facility] [address] BASIC METABOLIC [id number] 05:07:00 Test Item Value Reference Range Comments SODIUM (BEAKER) (test 150 meq/L 136-145 code = 381) POTASSIUM (BEAKER) (test 3.7 meq/L 3.5-5.1 code = 379) CHLORIDE (BEAKER) (test 120 meq/L 98-107 code = 382) CO2 (BEAKER) (test code = 11 meq/L 22-29 355) BLOOD UREA NITROGEN 22 mg/dL 7-21 (BEAKER) (test code = 354) CREATININE (BEAKER) (test 1.82 mg/dL 0.57-1.25 code = 358) GLUCOSE RANDOM (BEAKER) 227 mg/dL 70-105 (test code = 652) CALCIUM (BEAKER) (test 8.0 mg/dL 8.4-10.2 code = 697) EGFR (BEAKER) (test code 45 mL/min/1.73 sq m EST IMATED GFR IS NOT = 1092) ACCURATE CREA TININE CLEARANCE IN PRE DICTING GLOMERULAR FILTR ATION RATE. ESTIMATED GFR IS NOT APPLICABLE F OR DIALYSIS PATIENT S. [id number] 05:07:00 Test Item Value Reference Range Comments MAGNESIUM (BEAKER) (test code = 627) 2.0 mg/dL 1.6-2.6 [id number] 05:07:00 Test Item Value Reference Range Comments PHOSPHORUS (BEAKER) (test code = 604) 2.8 mg/dL 2.3-4.7 BLOOD GAS, [id number] 05:01:00 Test Item Value Reference Range Comments PH ARTERIAL (BEAKER) (test code = 383) 7.34 7.35-7.45 PCO2 ARTERIAL (BEAKER) (test code = 384) 21 mmHg 35-45 PO2 ARTERIAL (BEAKER) (test code = 385) 148 mmHg 80-90 O2 SATURATION ARTERIAL (BEAKER) (test code = 98.8 % 96. 0-97.0 386) HCO3 ARTERIAL (BEAKER) (test code = 388) 11 mmol/L 21-29 BASE EXCESS ARTERIAL (BEAKER) (test code = 387) -12.4 mmol/L -2.0-3.0 PATIENT TEMPERATURE (BEAKER) (test code = 1818) 37.5 C FIO2 (BEAKER) (test code = 1819) 21.0 % LACTIC ACID, [id number] 04:58:00 Test Item Value Reference Range Comments LACTATE BLOOD ARTERIAL (2) (BEAKER) (test code = 0.6 mmol/L 0.5-2.2 2874) CBC W/PLT COUNT & AUTO [id number] 04:57:00 Test Item Value Reference Range Comments WHITE BLOOD CELL COUNT (BEAKER) (test code = 18.5 K/ L 3.5 -10.5 775) RED BLOOD CELL COUNT (BEAKER) (test code = 761) 4.13 M/ L 4.63-6.08 HEMOGLOBIN (BEAKER) (test code = 410) 12.4 GM/DL 13.7-17.5 HEMATOCRIT (BEAKER) (test code = 411) 35.8 % 40.1-51.0 MEAN CORPUSCULAR VOLUME (BEAKER) (test code = 86.7 fL 79 .0-92.2 753) MEAN CORPUSCULAR HEMOGLOBIN (BEAKER) (test code 30.0 pg 25.7-32.2 = 751) MEAN CORPUSCULAR HEMOGLOBIN CONC (BEAKER) (test 34.6 GM/DL 32.3-36.5 code = 752) RED CELL DISTRIBUTION WIDTH (BEAKER) (test code 13.1 % 11.6-14.4 = 412) PLATELET COUNT (BEAKER) (test code = 756) 209 K/CU MM 150-45 0 MEAN PLATELET VOLUME (BEAKER) (test code = 754) 9.7 fL 9.4-12.4 NUCLEATED RED BLOOD CELLS (BEAKER) (test code = 0 /100 WBC 0-0 413) NEUTROPHILS RELATIVE PERCENT (BEAKER) (test code 86 % = 429) LYMPHOCYTES RELATIVE PERCENT (BEAKER) (test code 7 % = 430) MONOCYTES RELATIVE PERCENT (BEAKER) (test code = 6 % 431) EOSINOPHILS RELATIVE PERCENT (BEAKER) (test code 0 % = 432) BASOPHILS RELATIVE PERCENT (BEAKER) (test code = 0 % 437) NEUTROPHILS ABSOLUTE COUNT (BEAKER) (test code = 15.91 K/ L 1.78-5.38 670) LYMPHOCYTES ABSOLUTE COUNT (BEAKER) (test code = 1.28 K/ L 1.32-3.57 414) MONOCYTES ABSOLUTE COUNT (BEAKER) (test code = 1.14 K/ L 0 .30-0.82 415) EOSINOPHILS ABSOLUTE COUNT (BEAKER) (test code = 0.00 K/ L 0.04-0.54 416) BASOPHILS ABSOLUTE COUNT (BEAKER) (test code = 0.03 K/ L 0 .01-0.08 417) IMMATURE GRANULOCYTES-RELATIVE PERCENT (BEAKER) 1 % 0-1 (test code = 2801) POCT-GLUCOSE [id number] 04:20:00 Test Item Value Reference Range Comments POC-GLUCOSE METER (BEAKER) 220 mg/dL 70-110 TESTE D AT [address] (test code = 1538) [place] [address] POCT-GLUCOSE [id number] 03:44:00 Test Item Value Reference Range Comments POC-GLUCOSE METER (BEAKER) 243 mg/dL 70-110 TESTE D AT [address] (test code = 1538) [place] [address] POCT-GLUCOSE [id number] 03:06:00 Test Item Value Reference Range Comments POC-GLUCOSE METER (BEAKER) 196 mg/dL 70-110 TESTE D AT [address] (test code = 1538) [place] [address] TROPONIN [id number] 03:00:00 Test Item Value Reference Range Comments TROPONIN I (BEAKER) (test code = 397) 0.02 ng/mL 0.00-0.03 Troponin I (TnI) levels must be interpreted in the context of the presenting symptoms and the clinical findings. Elevated TnI levels indicate myocardial damage, but are not specific for ischemic heart disease. Elevated TnI levels are seen in patients with other cardiac conditions (including myocarditis and congestive heart failure), and slight TnI elevations occur in patients with other conditions, including sepsis, renal failure, acidosis, acute neurological disease, and persistent tachyarrhythmia.BASIC METABOLIC [id number] 02:57:00 Test Item Value Reference Range Comments SODIUM (BEAKER) (test 149 meq/L 136-145 code = 381) POTASSIUM (BEAKER) (test 4.1 meq/L 3.5-5.1 code = 379) CHLORIDE (BEAKER) (test 120 meq/L 98-107 code = 382) CO2 (BEAKER) (test code = 10 meq/L 22-29 355) BLOOD UREA NITROGEN 22 mg/dL 7-21 (BEAKER) (test code = 354) CREATININE (BEAKER) (test 1.71 mg/dL 0.57-1.25 code = 358) GLUCOSE RANDOM (BEAKER) 195 mg/dL 70-105 (test code = 652) CALCIUM (BEAKER) (test 7.7 mg/dL 8.4-10.2 code = 697) EGFR (BEAKER) (test code 48 mL/min/1.73 sq m EST IMATED GFR IS NOT = 1092) ACCURATE CREA TININE CLEARANCE IN PRE DICTING GLOMERULAR FILTR ATION RATE. ESTIMATED GFR IS NOT APPLICABLE F OR DIALYSIS PATIENT S. POCT-GLUCOSE [id number] 01:21:00 Test Item Value Reference Range Comments POC-GLUCOSE METER (BEAKER) 195 mg/dL 70-110 TESTE D AT [facility] [address] [facility] (test code = 1538) [facility] [address] TROPONIN [id number] 00:47:00 Test Item Value Reference Range Comments TROPONIN I (BEAKER) (test code = 397) 0.03 ng/mL 0.00-0.03 Troponin I (TnI) levels must be interpreted in the context of the presenting symptoms and the clinical findings. Elevated TnI levels indicate myocardial damage, but are not specific for ischemic heart disease. Elevated TnI levels are seen in patients with other cardiac conditions (including myocarditis and congestive heart failure), and slight TnI elevations occur in patients with other conditions, including sepsis, renal failure, acidosis, acute neurological disease, and persistent tachyarrhythmia.[id number] 00:44:00 Test Item Value Reference Range Comments PHOSPHORUS (BEAKER) (test code = 604) 1.4 mg/dL 2.3-4.7 BLOOD GAS, [id number] 00:41:00 Test Item Value Reference Range Comments PH ARTERIAL (BEAKER) (test code = 383) 7.35 7.35-7.45 PCO2 ARTERIAL (BEAKER) (test code = 384) 20 mmHg 35-45 PO2 ARTERIAL (BEAKER) (test code = 385) 143 mmHg 80-90 O2 SATURATION ARTERIAL (BEAKER) (test code = 98.7 % 96. 0-97.0 386) HCO3 ARTERIAL (BEAKER) (test code = 388) 11 mmol/L 21-29 BASE EXCESS ARTERIAL (BEAKER) (test code = 387) -12.3 mmol/L -2.0-3.0 PATIENT TEMPERATURE (BEAKER) (test code = 1818) 38.0 C FIO2 (BEAKER) (test code = 1819) 21.0 % BASIC METABOLIC [id number] 00:40:00 Test Item Value Reference Range Comments SODIUM (BEAKER) (test 150 meq/L 136-145 code = 381) POTASSIUM (BEAKER) (test 3.8 meq/L 3.5-5.1 code = 379) CHLORIDE (BEAKER) (test 120 meq/L 98-107 code = 382) CO2 (BEAKER) (test code = 11 meq/L 22-29 355) BLOOD UREA NITROGEN 25 mg/dL 7-21 (BEAKER) (test code = 354) CREATININE (BEAKER) (test 1.83 mg/dL 0.57-1.25 code = 358) GLUCOSE RANDOM (BEAKER) 220 mg/dL 70-105 (test code = 652) CALCIUM (BEAKER) (test 8.0 mg/dL 8.4-10.2 code = 697) EGFR (BEAKER) (test code 44 mL/min/1.73 sq m EST IMATED GFR IS NOT = 1092) ACCURATE CREA TININE CLEARANCE IN PRE DICTING GLOMERULAR FILTR ATION RATE. ESTIMATED GFR IS NOT APPLICABLE F OR DIALYSIS PATIENT S. [id number] 00:40:00 Test Item Value Reference Range Comments MAGNESIUM (BEAKER) (test code = 627) 2.1 mg/dL 1.6-2.6 HEMOGLOBIN AND [id number] 00:21:00 Test Item Value Reference Range Comments HEMOGLOBIN (BEAKER) (test code = 410) 12.3 GM/DL 13.7-17.5 HEMATOCRIT (BEAKER) (test code = 411) 34.9 % 40.1-51.0 POCT-GLUCOSE [id number] 00:09:00 Test Item Value Reference Range Comments POC-GLUCOSE METER (BEAKER) 234 mg/dL 70-110 TESTE D AT [facility] [address] (test code = 1538) [facility] 77 [address] STREP PNEUMONIAE [id number] 00:07:00 Test Item Value Reference Range Comments STREP PNEUMONIAE ANTIGEN Presumptive negative for Presumptive ne gative for (BEAKER) (test code = pneumococcal pneumonia - pneumococcal pneu monia - 1615) see comment see commen Presumptive negative for pneumococcal pneumonia, suggesting no current or recent pneumococcal infection. Infection due to S. pneumoniae cannot be ruled out since the antigen present in the sample may be below the detection limit of the test. LEGIONELLA ANTIGEN, [id number] 00:07:00 Test Item Value Reference Range Comments L. PNEUMOPHILA SEROGP 1 Negative - see Negative for L. UR AG (BEAKER) (test comment pneumophila serogroup 1 code = 1156) antigen, suggest ing no recent or curren t infection with t his serogroup. Legio nellosis cannot be ruled out since other serogroups and species may caus e disease. POCT-GLUCOSE [id number] 23:15:00 Test Item Value Reference Range Comments POC-GLUCOSE METER (BEAKER) 247 mg/dL 70-110 TESTE D AT [facility] [address] (test code = 1538) [facility] [address] BASIC METABOLIC [id number] 23:09:00 Test Item Value Reference Range Comments SODIUM (BEAKER) (test 150 meq/L 136-145 code = 381) POTASSIUM (BEAKER) (test 4.1 meq/L 3.5-5.1 code = 379) CHLORIDE (BEAKER) (test 120 meq/L 98-107 code = 382) CO2 (BEAKER) (test code = 8 meq/L 22-29 355) BLOOD UREA NITROGEN 26 mg/dL 7-21 (BEAKER) (test code = 354) CREATININE (BEAKER) (test 1.89 mg/dL 0.57-1.25 code = 358) GLUCOSE RANDOM (BEAKER) 283 mg/dL 70-105 (test code = 652) CALCIUM (BEAKER) (test 8.3 mg/dL 8.4-10.2 code = 697) EGFR (BEAKER) (test code 43 mL/min/1.73 sq m EST IMATED GFR IS NOT = 1092) ACCURATE CREA TININE CLEARANCE IN PRE DICTING GLOMERULAR FILTR ATION RATE. ESTIMATED GFR IS NOT APPLICABLE F OR DIALYSIS PATIENT S. BLOOD GAS, [id number] 22:52:00 Test Item Value Reference Range Comments PH ARTERIAL (BEAKER) (test code = 383) 7.34 7.35-7.45 PCO2 ARTERIAL (BEAKER) (test code = 384) 16 mmHg 35-45 PO2 ARTERIAL (BEAKER) (test code = 385) 194 mmHg 80-90 O2 SATURATION ARTERIAL (BEAKER) (test code = 99.3 % 96. 0-97.0 386) HCO3 ARTERIAL (BEAKER) (test code = 388) 9 mmol/L 21-29 BASE EXCESS ARTERIAL (BEAKER) (test code = 387) -14.1 mmol/L -2.0-3.0 PATIENT TEMPERATURE (BEAKER) (test code = 1818) 38.0 C FIO2 (BEAKER) (test code = 1819) 21.0 % POCT-GLUCOSE [id number] 22:25:00 Test Item Value Reference Range Comments POC-GLUCOSE METER (BEAKER) 270 mg/dL 70-110 TESTE D AT [address] (test code = 1538) [place] [address] POCT-GLUCOSE [id number] 21:28:00 Test Item Value Reference Range Comments POC-GLUCOSE METER (BEAKER) 312 mg/dL 70-110 TESTE D AT [address] (test code = 1538) [place] [address] LACTIC ACID, [id number] 20:58:00 Test Item Value Reference Range Comments LACTATE BLOOD ARTERIAL (2) (BEAKER) (test code = 1.7 mmol/L 0.5-2.2 2874) BASIC METABOLIC [id number] 20:51:00 Test Item Value Reference Range Comments SODIUM (BEAKER) (test 149 meq/L 136-145 code = 381) POTASSIUM (BEAKER) (test 4.3 meq/L 3.5-5.1 code = 379) CHLORIDE (BEAKER) (test 119 meq/L 98-107 code = 382) CO2 (BEAKER) (test code = 6 meq/L 22-29 355) BLOOD UREA NITROGEN 29 mg/dL 7-21 (BEAKER) (test code = 354) CREATININE (BEAKER) (test 2.01 mg/dL 0.57-1.25 code = 358) GLUCOSE RANDOM (BEAKER) 389 mg/dL 70-105 (test code = 652) CALCIUM (BEAKER) (test 8.2 mg/dL 8.4-10.2 code = 697) EGFR (BEAKER) (test code 40 mL/min/1.73 sq m EST IMATED GFR IS NOT = 1092) ACCURATE CREA TININE CLEARANCE IN PRE DICTING GLOMERULAR FILTR ATION RATE. ESTIMATED GFR IS NOT APPLICABLE F OR DIALYSIS PATIENT S. POCT-GLUCOSE [id number] 20:37:00 Test Item Value Reference Range Comments POC-GLUCOSE METER (BEAKER) 334 mg/dL 70-110 TESTE D AT [facility] [address] [place] [address] (test code = 1538) [place] [address] RAD, CHEST, 1 VIEW, NON [id number] 20:13:00Post-intubationReason for exam:- >r/o pnaShould this be performed at the bedside?->YesFINAL REPORT History: "Rule out pneumonia". Comparison: None. Findings: A sin gle view of the chest is submitted. The cardiomediastinal contours are unremarkable. There is no focal consolidation, pneumothorax, large pleural effusion or evidence of overt pulmonary edema. Thereis no acute bony abnormality. Impression: No acute abnormality. Signed: Anand Vargas Verified Date/Time: 10/14/2018 20:13:51 Reading Location: [address] Reading Room POCT-GLUCOSE [id number] 19:39:00 Test Item Value Reference Range Comments POC-GLUCOSE METER (BEAKER) 432 mg/dL 70-110 TESTE D AT [address] (test code = 1538) [place] [address] HEMOGLOBIN [id number] 19:16:00 Test Item Value Reference Range Comments HEMOGLOBIN A1C (BEAKER) (test code = 368) 10.2 % 4.3-6. 1 [id number] 18:52:00 Test Item Value Reference Range Comments PROCALCITONIN (BEAKER) (test code = 3036) 5.14 ng/mL <0.05 SEPSIS RISK (ng/mL)Low: 0.05-0.50Intermediate: 0.51-2.00High: >=2.01CBC W/PLT COUNT & AUTO [id number] 18:37:00 Test Item Value Reference Range Comments WHITE BLOOD CELL COUNT (BEAKER) (test code = 24.9 K/ L 3.5 -10.5 775) RED BLOOD CELL COUNT (BEAKER) (test code = 761) 4.23 M/ L 4.63-6.08 HEMOGLOBIN (BEAKER) (test code = 410) 13.0 GM/DL 13.7-17.5 HEMATOCRIT (BEAKER) (test code = 411) 38.1 % 40.1-51.0 MEAN CORPUSCULAR VOLUME (BEAKER) (test code = 90.1 fL 79 .0-92.2 753) MEAN CORPUSCULAR HEMOGLOBIN (BEAKER) (test code 30.7 pg 25.7-32.2 = 751) MEAN CORPUSCULAR HEMOGLOBIN CONC (BEAKER) (test 34.1 GM/DL 32.3-36.5 code = 752) RED CELL DISTRIBUTION WIDTH (BEAKER) (test code 12.6 % 11.6-14.4 = 412) PLATELET COUNT (BEAKER) (test code = 756) 223 K/CU MM 150-45 0 MEAN PLATELET VOLUME (BEAKER) (test code = 754) 9.9 fL 9.4-12.4 NUCLEATED RED BLOOD CELLS (BEAKER) (test code = 0 /100 WBC 0-0 413) NEUTROPHILS RELATIVE PERCENT (BEAKER) (test code 92 % = 429) LYMPHOCYTES RELATIVE PERCENT (BEAKER) (test code 3 % = 430) MONOCYTES RELATIVE PERCENT (BEAKER) (test code = 4 % 431) EOSINOPHILS RELATIVE PERCENT (BEAKER) (test code 0 % = 432) BASOPHILS RELATIVE PERCENT (BEAKER) (test code = 0 % 437) NEUTROPHILS ABSOLUTE COUNT (BEAKER) (test code = 22.92 K/ L 1.78-5.38 670) LYMPHOCYTES ABSOLUTE COUNT (BEAKER) (test code = 0.82 K/ L 1.32-3.57 414) MONOCYTES ABSOLUTE COUNT (BEAKER) (test code = 0.96 K/ L 0 .30-0.82 415) EOSINOPHILS ABSOLUTE COUNT (BEAKER) (test code = 0.00 K/ L 0.04-0.54 416) BASOPHILS ABSOLUTE COUNT (BEAKER) (test code = 0.06 K/ L 0 .01-0.08 417) IMMATURE GRANULOCYTES-RELATIVE PERCENT (BEAKER) 1 % 0-1 (test code = 2801) BASIC METABOLIC [id number] 18:29:00 Test Item Value Reference Range Comments SODIUM (BEAKER) (test 145 meq/L 136-145 code = 381) POTASSIUM (BEAKER) (test 5.5 meq/L 3.5-5.1 code = 379) CHLORIDE (BEAKER) (test 114 meq/L 98-107 code = 382) CO2 (BEAKER) (test code = < meq/L 22-29 355) BLOOD UREA NITROGEN 30 mg/dL 7-21 (BEAKER) (test code = 354) CREATININE (BEAKER) (test 2.07 mg/dL 0.57-1.25 code = 358) GLUCOSE RANDOM (BEAKER) 664 mg/dL 70-105 (test code = 652) CALCIUM (BEAKER) (test 7.8 mg/dL 8.4-10.2 code = 697) EGFR (BEAKER) (test code 38 mL/min/1.73 sq m EST IMATED GFR IS NOT = 1092) ACCURATE CREA TININE CLEARANCE IN PRE DICTING GLOMERULAR FILTR ATION RATE. ESTIMATED GFR IS NOT APPLICABLE F OR DIALYSIS PATIENT S. HEPATIC FUNCTION [id number] 18:29:00 Test Item Value Reference Range Comments TOTAL PROTEIN (BEAKER) (test code = 770) 6.5 gm/dL 6.0-8.3 ALBUMIN (BEAKER) (test code = 1145) 3.8 g/dL 3.5-5.0 BILIRUBIN TOTAL (BEAKER) (test code = 377) 0.6 mg/dL 0.2-1 .2 BILIRUBIN DIRECT (BEAKER) (test code = 706) 0.3 mg/dL 0.1- 0.5 ALKALINE PHOSPHATASE (BEAKER) (test code = 346) 76 U/L 40-150 AST (SGOT) (BEAKER) (test code = 353) 18 U/L 5-34 ALT (SGPT) (BEAKER) (test code = 347) 23 U/L 6-55 LACTIC ACID, [id number] 18:24:00 Test Item Value Reference Range Comments LACTATE BLOOD ARTERIAL (2) (BEAKER) (test code = 3.0 mmol/L 0.5-2.2 2874) BLOOD GAS, [id number] 17:52:00 Test Item Value Reference Range Comments PH ARTERIAL (BEAKER) (test code = 383) 7.13 7.35-7.45 PCO2 ARTERIAL (BEAKER) (test code = 384) 8 mmHg 35-45 PO2 ARTERIAL (BEAKER) (test code = 385) 145 mmHg 80-90 O2 SATURATION ARTERIAL (BEAKER) (test code = 98.3 % 96. 0-97.0 386) HCO3 ARTERIAL (BEAKER) (test code = 388) 3 mmol/L 21-29 BASE EXCESS ARTERIAL (BEAKER) (test code = 387) -24.1 mmol/L -2.0-3.0 PATIENT TEMPERATURE (BEAKER) (test code = 1818) 36.5 C FIO2 (BEAKER) (test code = 1819) 21.0 % CBC W/PLT COUNT & AUTO [id number] 17:50:00 Test Item Value Reference Range Comments WHITE BLOOD CELL COUNT (BEAKER) (test code = 31.9 K/ L 3.5 -10.5 775) RED BLOOD CELL COUNT (BEAKER) (test code = 761) 4.72 M/ L 4.63-6.08 HEMOGLOBIN (BEAKER) (test code = 410) 14.3 GM/DL 13.7-17.5 HEMATOCRIT (BEAKER) (test code = 411) 42.7 % 40.1-51.0 MEAN CORPUSCULAR VOLUME (BEAKER) (test code = 90.5 fL 79 .0-92.2 753) MEAN CORPUSCULAR HEMOGLOBIN (BEAKER) (test code 30.3 pg 25.7-32.2 = 751) MEAN CORPUSCULAR HEMOGLOBIN CONC (BEAKER) (test 33.5 GM/DL 32.3-36.5 code = 752) RED CELL DISTRIBUTION WIDTH (BEAKER) (test code 12.7 % 11.6-14.4 = 412) PLATELET COUNT (BEAKER) (test code = 756) 288 K/CU MM 150-45 0 MEAN PLATELET VOLUME (BEAKER) (test code = 754) 10.8 fL 9.4-12.4 NUCLEATED RED BLOOD CELLS (BEAKER) (test code = 0 /100 WBC 0-0 413) (CELLAVISION MANUAL DIFF)[id number] 17:50:00 Test Item Value Reference Range Comments NEUTROPHILS - REL (CELLAVISION)(BEAKER) (test 89 % code = 2816) LYMPHOCYTES - REL (CELLAVISION)(BEAKER) (test 2 % code = 2817) MONOCYTES - REL (CELLAVISION)(BEAKER) (test code 2 % = 2818) BANDS - REL (CELLAVISION)(BEAKER) (test code = 6 % 0 -10 2826) NEUTROPHILS - ABS (CELLAVISION)(BEAKER) (test 28.39 K/ul 1. 78-5.38 code = 2830) LYMPHOCYTES - ABS (CELLAVISION)(BEAKER) (test 0.64 K/ul 1. 32-3.57 code = 2831) MONOCYTES - ABS (CELLAVISION)(BEAKER) (test code 0.64 K/uL 0.30-0.82 = 2832) BANDS - ABS (CELLAVISION)(BEAKER) (test code = 1.91 K/uL 0 .00-0.80 2840) TOTAL COUNTED (BEAKER) (test code = 1351) 100 PLT MORPHOLOGY (BEAKER) (test code = 486) Normal VACUOLATED NEUTROPHILS (BEAKER) (test code = Present 483) ANISOCYTOSIS (BEAKER) (test code = 961) 2+ moderate MICROCYTES (BEAKER) (test code = 965) 2+ moderate POIKILOCYTES (BEAKER) (test code = 966) 1+ few JOAO CELLS (BEAKER) (test code = 474) 1+ few ARTIFACT (CELLAVISION)(BEAKER) (test code = Present 3432) PLATELET CONCENTRATION (CELLAVISION)(BEAKER) Adequate (test code = 3438) Received comment: User comments: Slide comments:POCT-GLUCOSE [id number] 17:49:00 Test Item Value Reference Range Comments POC-GLUCOSE METER (BEAKER) > mg/dL 70-110 OUTSI DE MEASURING RANGETESTED AT (test code = 1538) [facility] [address] [place] [address] KETONE, [id number] 17:13:00 Test Item Value Reference Range Comments KETONES, BLOOD (BEAKER) (test code = 1103) 5.4 mmol/L <0.4 TSH/FREE T4 IF [id number] 17:10:00 Test Item Value Reference Range Comments THYROID STIMULATING HORMONE (BEAKER) (test code 0.64 uIU/mL 0.35-4.94 = 772) BASIC METABOLIC [id number] 16:57:00 Test Item Value Reference Range Comments SODIUM (BEAKER) (test 142 meq/L 136-145 code = 381) POTASSIUM (BEAKER) (test 6.9 meq/L 3.5-5.1 Specime n slightly code = 379) hemolyzed CHLORIDE (BEAKER) (test 108 meq/L 98-107 code = 382) CO2 (BEAKER) (test code = 6 meq/L 22-29 355) BLOOD UREA NITROGEN 30 mg/dL 7-21 (BEAKER) (test code = 354) CREATININE (BEAKER) (test 2.22 mg/dL 0.57-1.25 Specim en slightly code = 358) hemolyzed GLUCOSE RANDOM (BEAKER) 768 mg/dL 70-105 (test code = 652) CALCIUM (BEAKER) (test 8.9 mg/dL 8.4-10.2 code = 697) EGFR (BEAKER) (test code 35 mL/min/1.73 sq m EST IMATED GFR IS NOT = 1092) ACCURATE CREA TININE CLEARANCE IN PRE DICTING GLOMERULAR FILTR ATION RATE. ESTIMATED GFR IS NOT APPLICABLE F OR DIALYSIS PATIENT S. TROPONIN [id number] 16:56:00 Test Item Value Reference Range Comments TROPONIN I (BEAKER) (test code = 397) < ng/mL 0.00-0.03 Troponin I (TnI) levels must be interpreted in the context of the presenting symptoms and the clinical findings. Elevated TnI levels indicate myocardial damage, but are not specific for ischemic heart disease. Elevated TnI levels are seen in patients with other cardiac conditions (including myocarditis and congestive heart failure), and slight TnI elevations occur in patients with other conditions, including sepsis, renal failure, acidosis, acute neurological disease, and persistent tachyarrhythmia.[id number] 16:50:00 Test Item Value Reference Range Comments MAGNESIUM (BEAKER) (test code = 2.4 mg/dL 1.6-2.6 Specimen slightly hemolyzed 627) [id number] 16:50:00 Test Item Value Reference Range Comments PHOSPHORUS (BEAKER) (test code 5.6 mg/dL 2.3-4.7 S pecimen slightly hemolyzed = 604) [id number] 16:50:00 Test Item Value Reference Range Comments AMYLASE (BEAKER) (test code = 349) 47 U/L 25-125 Specimen slightly hemolyzed [id number] 16:50:00 Test Item Value Reference Range Comments LIPASE (BEAKER) (test code = 749) 199 U/L 8-78 PROTHROMBIN TIME/[id number] 16:47:00 Test Item Value Reference Range Comments PROTIME (BEAKER) (test code = 759) 15.5 seconds 11.9-14.2 INR (BEAKER) (test code = 370) 1.3 <=5.9 Effective 09/19/2018: PT Reference Range ChangeNew: 11.9-14.2 Previous: 11.7- 14.7RECOMMENDED COUMADIN/WARFARIN INR THERAPY RANGESSTANDARD DOSE: 2.0-3.0 Includes: PROPHYLAXIS for venous thrombosis, systemic embolization; TREATMENT for venous thrombosis and/or pulmonary embolus.HIGH RISK: Target INR is2.5-3.5 for patients wiht mechanical heart valves.[id number] 16:47:00 Test Item Value Reference Range Comments PARTIAL THROMBOPLASTIN TIME (BEAKER) (test code 23.5 seconds 22.5-36.0 = 760) [id number] 16:47:00 Test Item Value Reference Range Comments FIBRINOGEN LEVEL (BEAKER) (test code = 658) 284 mg/dl 225- 434 LACTIC ACID, [id number] 16:44:00 Test Item Value Reference Range Comments LACTATE BLOOD VENOUS (2) 4.2 mmol/L 0.5-2.2 Specime n slightly hemolyzed (BEAKER) (test code = 2872) HEMOGLOBIN AND [id number] 16:34:00 Test Item Value Reference Range Comments HEMOGLOBIN (BEAKER) (test code = 410) 14.5 GM/DL 13.7-17.5 HEMATOCRIT (BEAKER) (test code = 411) 42.9 % 40.1-51.0 POTASSIUM-STAT [id number] 16:21:00 Test Item Value Reference Range Comments POTASSIUM (BEAKER) (test code = 379) 7.0 meq/L 3.6-5.5 GLUCOSE-STAT [id number] 16:21:00 Test Item Value Reference Range Comments GLUCOSE RANDOM (BEAKER) (test code = 652) 650 mg/dL 70-110 BLOOD GAS, [id number] 16:21:00 Test Item Value Reference Range Comments PH VENOUS (BEAKER) (test code = 701) 7.06 7.32-7.42 PCO2 VENOUS (BEAKER) (test code = 755) 17 mmHg 41-51 PO2 VENOUS (BEAKER) (test code = 702) 56 mmHg 25-40 O2 SATURATION VENOUS (BEAKER) (test code = 703) 78.1 % 40.0-70.0 HCO3 VENOUS (BEAKER) (test code = 705) 5 mmol/L 21-29 BASE EXCESS VENOUS (BEAKER) (test code = 704) -23.9 mmol/L -2 .0-3.0 PATIENT TEMPERATURE (BEAKER) (test code = 1818) 36.4 C FIO2 (BEAKER) (test code = 1819) 21.0 % SODIUM NA-STAT [id number] 16:15:00 Test Item Value Reference Range Comments SODIUM (BEAKER) (test code = 381) 142 meq/L 135-148 HGB/HCT (H&H) - STAT [id number] 16:15:00 Test Item Value Reference Range Comments HEMOGLOBIN (BEAKER) (test code = 410) 14.8 g/dL 13.0-16.8 HEMATOCRIT (BEAKER) (test code = 411) 44.0 % 40.0-50.0 POCT-GLUCOSE [id number] 15:42:00 Test Item Value Reference Range Comments POC-GLUCOSE METER (BEAKER) > mg/dL 70-110 OUTSI DE MEASURING RANGENotified RN (test code = 1538) MD/TESTED AT [facility] [address] [facility] [id number]
--- OUTSIDE RECORDS SUMMARY | 2019-08-06 20:46 | XMS REPORT | Summary of Care ---
:1990 Author Organization [facility] Address [address] [place] [address] Care Team Providers Name Role Phone Meggan Ray MD Primary Care Provider Encounter Details Date Type Department Care Team Description 07/18/2019 Orders Only [facility] Doctor Unassigned, No [address] [facility] [place] [address] [address] [place] [address] Allergies No Known Allergiesdocumented as of this encounter (statuses as of 07/29/2019) Medications Medication Sig Dispensed Refills Start Date [...] as of this encounter (statuses as of 07/29/2019) Active Problems Problem Noted Date Attention deficit hyperactivity disorder (ADHD) 2006 Overview: ICD10 Diagnosis Term [employer] 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 Utility Uncontrolled type 1 diabetes mellitus 10/01/2005 Overview: Dx age 4 ICD10 Diagnosis Term [employer] Professor Utility Trichomoniasis documented as of this encounter (statuses as of 07/29/2019) Resolved Problems Problem Noted Date Resolved Date DKA (diabetic ketoacidoses) 07/29/2015 01/29/2019 documented as of this encounter (statuses as of 07/29/2019) Immunizations Name Administration Dates Next Due Influenza [...] 02/15/2008, 02/19/2004 documented as of this encounter Procedures Procedure Name Priority Date/Time Associated Diagnosis Comme nts REFERRAL- Routine 07/18/2019 12:01 AM CDT REQUEST/RESPONSE documented in this encounter Results Not on filedocumented in this encounter
[2019-08-06] MEDS ORDERED: NA CHLORIDE 0.9% 1,000 ML ONE ×2 (21:11→22:16)
[2019-08-06] MEDS ORDERED: ONDANSETRON 4 MG/2 ML VIAL ONE (21:11)
[2019-08-06 21:32] LABS: Absolute Lymphocytes (CBC) 1.2 K/uL (0.7-4.9); Basophils % 0.5 % (0-1.3); Lymphocytes % 19.4 % (15.3-44.8); MPV 7.9 fL (7.6-11.3)
[2019-08-06 21:50] LABS: ALT/SGPT 52 U/L (12-78); AST/SGOT 19 U/L (15-37); Albumin 3.8 g/dL (3.4-5.0); Alkaline Phosphatase 82 U/L (45-117); BUN Blood Urea Nitrogen 23 mg/dL (7-18); Bicarbonate 25 mmol/L (21-32); Bilirubin Direct 0.4 mg/dL (0-0.2); Bilirubin Total 2.5 mg/dL (0.2-1.0); Glucose Level 388 mg/dL (74-106); Lipase 37 U/L (73-393); Protein, Total 7.6 g/dL (6.4-8.2); Sodium Level 138 mmol/L (136-145)
[2019-08-06] MEDS ORDERED: INSULIN -REGULAR HUMAN 50 UNIT/0.5 ML ML ONE (22:16)
--- NOTE | 2019-08-06 23:01 | ER ---
Nurse's Notes [facility] Name: Enio Bradley Age: 29 yrs Sex: Male : 1990 Arrival Date: 08/06/2019 Time: 20:44 Bed 19 Private MD: Diagnosis: Dehydration;Hyperglycemia, unspecified Presentation: 08/05 20:57 Chief complaint: Patient states: he is a IDDM and thinks he is going into DKA, he feels bb dehydrated, has been vomiting x 30 minutes last blood sugar was 440 this morning, he has been taking his insulin as prescribed. Coronavirus screen: Proceed with normal triage. Ebola Screen: No symptoms or risks identified at this time. Initial Sepsis Screen: Does the patient meet any 2 criteria? No. Patient's initial sepsis screen is negative. Does the patient have a suspected source of infection? No. Patient's initial sepsis screen is negative. Risk Assessment: Do you want to hurt yourself or someone else? Patient reports no desire to harm self or others. Onset of symptoms was August 06, 2019. 20:57 Method Of Arrival: Ambulatory bb 20:57 Acuity: JAMAL 2 bb Historical: - Allergies: 21:01 No Known Allergies; bb - Home Meds: 21:01 Tresiba FlexTouch U-100 subcutaneous subcutaneous [Active]; Novolog Flexpen bb subcutaneous subcutaneous [Active]; - PMHx: 21:01 ADD/ADHD; Diabetes - IDDM; bb - PSHx: 21:01 Ear Tubes; bb - Immunization history:: Adult Immunizations up to date. - Social history:: Smoking status: Patient denies any tobacco usage or history of. Patient/guardian denies using alcohol, street drugs. - Family history:: not pertinent. - Hospitalizations: : No recent hospitalization is reported. Screenin:16 Abuse screen: Denies threats or abuse. Nutritional screening: No deficits noted. jd3 Tuberculosis screening: No symptoms or risk factors identified. Fall Risk Ambulatory Aid- None/Bed Rest/Nurse Assist (0 pts). Gait- Normal/Bed Rest/Wheelchair (0 pts) Mental Status- Oriented to own ability (0 pts). Total Romero Fall Scale indicates No Risk (0-24 pts). Assessment: 21:14 General: Appears in no apparent distress. uncomfortable, Behavior is calm, cooperative, jd3 appropriate for age. Pain: Complains of pain in abdomen Quality of pain is described as aching. Neuro: Level of Consciousness is awake, alert, obeys commands, Oriented to person, place, time, situation. Cardiovascular: Denies chest pain, Capillary refill < 3 seconds Patient's skin is warm and dry. Respiratory: Airway is patent Respiratory effort is even, unlabored, Respiratory pattern is regular, symmetrical, Denies cough, shortness of breath. GI: Abdomen is flat, non-distended, Abd is soft and non tender X 4 quads. Reports nausea, Patient currently denies diarrhea, vomiting. : No signs and/or symptoms were reported regarding the genitourinary system. EENT: No signs and/or symptoms were reported regarding the EENT system. Derm: Skin is intact, Skin is dry, Skin is normal, Skin temperature is warm. Musculoskeletal: Circulation, motion, and sensation intact. Range of motion: intact in all extremities. 22:20 Reassessment: Patient appears in no apparent distress at this time. Patient and/or jd3 family updated on plan of care and expected duration. Pain level reassessed. Patient is alert, oriented x 3, equal unlabored respirations, skin warm/dry/pink. Patient states feeling better. 23:31 Reassessment: Patient appears in no apparent distress at this time. Patient and/or jd3 family updated on plan of care and expected duration. Pain level reassessed. Patient is alert, oriented x 3, equal unlabored respirations, skin warm/dry/pink. awaiting blood sugar recheck before discharge. Vital Signs: 20:57 BP 119 / 82; Pulse 106; Resp 20 S; Temp 98.9(O); Pulse Ox 98% on R/A; Weight 86.18 kg bb (R); Height 5 ft. 10 in. (177.80 cm) (R); Pain 0/10; 22:21 BP 124 / 77; Pulse 96; Resp 19 S; Pulse Ox 99% on R/A; jd3 23:29 BP 110 / 72; Pulse 92; Resp 17 S; Pulse Ox 98% on R/A; jd3 20:57 Body Mass Index 27.26 (86.18 kg, 177.80 cm) ED Course: 20:44 Patient arrived in ED. ds1 20:53 Reece Hebert MD is Attending Physician. rn 21:00 Triage completed. bb 21:01 Arm band placed on Patient placed in an exam room, on a stretcher, on pulse oximetry. bb 21:03 Manoj Jasso, YVONNE is Primary Nurse. jd3 21:14 EKG done, by ED staff, reviewed by Reece Hebert MD. jd3 21:16 Patient has correct armband on for positive identification. Placed in gown. Bed in low jd3 position. Call light in reach. Side rails up X 1. Pulse ox on. NIBP on. 21:22 Inserted saline lock: 20 gauge in right forearm, using aseptic technique. Blood jd3 collected. placed by [employer]. 23:28 No provider procedures requiring assistance completed. IV discontinued, intact, jd3 bleeding controlled, No redness/swelling at site. Pressure dressing applied. Administered Medications: 21:21 Drug: NS 0.9% 1000 ml Route: IV; Rate: 1000 ml; Site: right forearm; jd3 22:19 Follow up: Response: No adverse reaction; IV Status: Completed infusion; IV Intake: jd3 1000ml 21:21 Drug: Zofran (Ondansetron) 4 mg Route: IVP; Site: right forearm; jd3 22:20 Follow up: Response: No adverse reaction; Nausea is decreased jd3 22:01 CANCELLED (Duplicate Order): NS 0.9% 1000 ml IV at 1000 ml once rn 22:16 Drug: Insulin Regular Human 10 units {Co-Signature: christo (Jermaine Wolf RN).} Route: jd3 Sub-Q; Site: right upper arm; 23:15 Follow up: Response: No adverse reaction jd3 22:16 Drug: NS 0.9% 1000 ml Route: IV; Rate: 1000 ml; Site: right forearm; jd3 23:16 Follow up: Response: No adverse reaction; IV Status: Completed infusion; IV Intake: jd3 1000ml 22:18 Drug: Insulin Regular Human 5 units {Co-Signature: christo (Jermaine Wolf RN).} Route: IVP; jd3 Site: right forearm; 23:15 Follow up: Response: No adverse reaction jd3 Intake: 22:19 IV: 1000ml; Total: 1000ml. jd3 23:16 IV: 1000ml; Total: 2000ml. jd3 Outcome: 23:00 Discharge ordered by . rn 23:28 Discharged to home ambulatory. jd3 23:28 Condition: stable 23:28 Discharge instructions given to patient, Instructed on discharge instructions, follow up and referral plans. Demonstrated understanding of instructions, follow-up care. 23:32 Patient left the ED. jd3 Signatures: Madelyn Cui ds1 Zahira Garcia RN RN bb Reece Hebert MD MD rn Davies, Jonathon, RN RN jd3 Jermaine Wolf RN jb4 Corrections: (The following items were deleted from the chart) 21:23 21:21 NS 0.9% 1000 ml IV at 1000 ml in right antecubital jd3 jd3 21:24 21:21 Zofran (Ondansetron) 4 mg IVP in right antecubital jd3 jd3 23:30 23:29 Response: No adverse reaction; IV Status: Completed infusion; IV Intake: 1000ml j j 23:31 22:20 Reassessment: Patient appears in no apparent distress at this time. Patient jd3 and/or family updated on plan of care and expected duration. Pain level reassessed. Patient is alert, oriented x 3, equal unlabored respirations, skin warm/dry/pink. Patient states feeling better. jd3
--- NOTE | 2019-08-06 23:01 | EDPHYS ---
Physician Documentation [facility] Name: Enio Bradley Age: 29 yrs Sex: Male : 1990 Arrival Date: 08/06/2019 Time: 20:44 Bed 19 Private MD: ED Physician Reece Hebert HPI: 08/05 21:00 This 29 yrs old Male presents to ER via Ambulatory with complaints of rn Possible DKA, Vomiting. 21:00 The patient presents to the emergency department with nausea, vomiting. Onset: The rn symptoms/episode began/occurred today. Possible causes: unknown. The symptoms are aggravated by nothing. The symptoms are alleviated by nothing. Severity of symptoms: At their worst the symptoms were mild in the emergency department the symptoms are unchanged. The patient has experienced similar episodes in the past. Reports glucose can't get below 300 at home, states has been going through emotional things at home, not eating regular, but states compliant with medication dosing. Denies current abd pain, but reports nausea and weakness. Tried drinking water and threw it up. . Historical: - Allergies: 21:01 No Known Allergies; bb - Home Meds: 21:01 Tresiba FlexTouch U-100 subcutaneous subcutaneous [Active]; Novolog Flexpen bb subcutaneous subcutaneous [Active]; - PMHx: 21:01 ADD/ADHD; Diabetes - IDDM; bb - PSHx: 21:01 Ear Tubes; bb - Immunization history:: Adult Immunizations up to date. - Social history:: Smoking status: Patient denies any tobacco usage or history of. Patient/guardian denies using alcohol, street drugs. - Family history:: not pertinent. - Hospitalizations: : No recent hospitalization is reported. ROS: 21:00 Constitutional: Negative for fever, chills, and weight loss, Eyes: Negative for injury, rn pain, redness, and discharge, Neck: Negative for injury, pain, and swelling, Cardiovascular: Negative for chest pain, and edema, Respiratory: Negative for shortness of breath, cough, wheezing, and pleuritic chest pain, Abdomen/GI: Negative for abdominal pain, diarrhea, and constipation, MS/Extremity: Negative for injury and deformity, Skin: Negative for injury, rash, and discoloration, Neuro: Negative for headache, numbness, tingling, and seizure. Exam: 21:00 Constitutional: This is a well developed, well nourished patient who is awake, alert, rn and in no acute distress. Head/Face: Normocephalic, atraumatic. ENT: dry MM Cardiovascular: tachycardic, regular Respiratory: Speaking full sentences. No increased work of breathing, no retractions or nasal flaring. Abdomen/GI: soft, non-tender Skin: Warm, dry, no evidence of cellulitis MS/ Extremity: Pulses equal, no cyanosis. Neurovascular intact. Full, normal range of motion. Equal circumference. Neuro: Awake and alert, GCS 15, oriented to person, place, time, and situation. Cranial nerves II-XII grossly intact. Motor strength 5/5 in all extremities. Sensory grossly intact. Vital Signs: 20:57 BP 119 / 82; Pulse 106; Resp 20 S; Temp 98.9(O); Pulse Ox 98% on R/A; Weight 86.18 kg bb (R); Height 5 ft. 10 in. (177.80 cm) (R); Pain 0/10; 22:21 BP 124 / 77; Pulse 96; Resp 19 S; Pulse Ox 99% on R/A; jd3 23:29 BP 110 / 72; Pulse 92; Resp 17 S; Pulse Ox 98% on R/A; jd3 20:57 Body Mass Index 27.26 (86.18 kg, 177.80 cm) bb MDM: 20:53 Patient medically screened. rn 22:09 Differential diagnosis: DKA, hyperglycemia, dehydration. Data reviewed: vital signs, rn nurses notes, lab test result(s), and as a result, I will discharge patient. Counseling: I had a detailed discussion with the patient and/or guardian regarding: the historical points, exam findings, and any diagnostic results supporting the discharge/admit diagnosis, lab results, the need for outpatient follow up, to return to the emergency department if symptoms worsen or persist or if there are any questions or concerns that arise at home. Response to treatment: the patient's symptoms have markedly improved after treatment, and as a result, I will discharge patient. Special discussion: I discussed with the patient/guardian in detail that at this point there is no indication for admission to the hospital. It is understood, however, that if the symptoms persist or worsen the patient needs to return immediately for re-evaluation. ED course: No acidosis, no AG, + hyperglycemia with small ketones, will hydrate with 2L NS and insulin ordered for hyperglycemia, no DKA, anticipate DC home with continuation of insulin regimen. . 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 08/05 20:59 Order name: Basic Metabolic Panel; Complete Time: 21:58 rn 08/05 20:59 Order name: CBC with Diff; Complete Time: 21:37 rn 08/05 20:59 Order name: Hepatic Function; Complete Time: 21:58 rn 08/05 20:59 Order name: Lipase; Complete Time: 21:58 rn 08/05 20:59 Order name: Ketone, Serum; Complete Time: :58 rn 08/05 21:13 Order name: Glucose, Ancillary Testing; Complete Time: 21:37 EDMS 08/05 20:59 Order name: EKG; Complete Time: 21:00 rn 08/05 23:18 Order name: Glucose, Ancillary Testing; Complete Time: 23:20 EDMS 08/05 20:59 Order name: IV Saline Lock; Complete Time: 21:22 rn 08/05 20:59 Order name: Labs collected and sent; Complete Time: 21:22 rn 08/05 20:59 Order name: Glucose Level; Complete Time: 21:03 rn 08/05 20:59 Order name: EKG - Nurse/Tech; Complete Time: 21:14 rn Administered Medications: 21:21 Drug: NS 0.9% 1000 ml Route: IV; Rate: 1000 ml; Site: right forearm; jd3 22:19 Follow up: Response: No adverse reaction; IV Status: Completed infusion; IV Intake: jd3 1000ml 21:21 Drug: Zofran (Ondansetron) 4 mg Route: IVP; Site: right forearm; jd3 22:20 Follow up: Response: No adverse reaction; Nausea is decreased jd3 22:01 CANCELLED (Duplicate Order): NS 0.9% 1000 ml IV at 1000 ml once rn 22:16 Drug: Insulin Regular Human 10 units {Co-Signature: jb4 (Jermaine Wolf RN).} Route: jd3 Sub-Q; Site: right upper arm; 23:15 Follow up: Response: No adverse reaction jd3 22:16 Drug: NS 0.9% 1000 ml Route: IV; Rate: 1000 ml; Site: right forearm; jd3 23:16 Follow up: Response: No adverse reaction; IV Status: Completed infusion; IV Intake: jd3 1000ml 22:18 Drug: Insulin Regular Human 5 units {Co-Signature: jb4 (Jermaine Wolf RN).} Route: IVP; jd3 Site: right forearm; 23:15 Follow up: Response: No adverse reaction jd3 Disposition: 08/06/19 23:00 Discharged to Home. Impression: Dehydration, Hyperglycemia, unspecified. - Condition is Stable. - Discharge Instructions: Dehydration, Adult, Hyperglycemia, Blood Glucose Monitoring, Adult. - Medication Reconciliation Form, Thank You Letter, Antibiotic Education, Prescription Opioid Use form. - Follow up: Private Physician; When: As needed; Reason: Recheck today's complaints, Re-evaluation by your physician. - Problem is an ongoing problem. - Symptoms have improved. Signatures: Dispatcher [employer] EDZahira Handy RN RN bb Nieto, Roman, MD MD rn Davies, Jonathon, RN RN jd3 Jermaine Wolf RN jb4 Corrections: (The following items were deleted from the chart) 22:01 22:00 NS 0.9% 1000 ml IV at 1000 ml once ordered. rn rn 23:32 23:00 08/06/2019 23:00 Discharged to Home. Impression: Dehydration; Hyperglycemia, jd3 unspecified. Condition is Stable. Forms are Medication Reconciliation Form, Thank You Letter, Antibiotic Education, Prescription Opioid Use. Follow up: Private Physician; When: As needed; Reason: Recheck today's complaints, Re-evaluation by your physician. Problem is an ongoing problem. Symptoms have improved. rn
[2019-08-06 23:50] VITALS: TEMP 98.9
[2019-08-07 00:15] VITALS: BP 110/72; O2SAT 98
--- NOTE | 2019-08-07 12:51 | EKG ---
Test Date: 2019-08-06 Test Time: 21:13:42 Computing Architect: ROLANDA MEASUREMENT RESULTS: Intervals: Rate: 96 TN: 142 QRSD: 74 QT: 324 QTc: 409 Merlin: P: 46 TN: 142 QRS: 76 T: 15 INTERPRETIVE STATEMENTS: Normal sinus rhythm Nonspecific T wave abnormality Abnormal ECG Electronically Signed On 08-07-19 12:49:47 CDT by Robson Dasilva
== END 2019-08-06 23:32 | disposition home or self-care (01) ==
LOC: ER 20:40
DX: E86.0 Dehydration (principal); E11.65 Type 2 diabetes mellitus with hyperglycemia; F90.9 Attention-deficit hyperactivity disorder, unspecified type; Z79.4 Long term (current) use of insulin
CPT/HCPCS: 85025; 80048; 36415; 82010; 82947 ×2; 80076; 83690; J7030 ×2; J2405; 93005; 96361; 96372; 96374; 96375; 99284

== ENCOUNTER 2020-01-30 18:41 | Emergency (ER) | payer OTHER, SELFPAY ==
--- NOTE | 2020-01-30 19:34 | EDPHYS ---
Physician Documentation [facility] Name: Enio Bradley Age: 29 yrs Sex: Male : 1990 Arrival Date: 01/30/2020 Time: 18:42 Bed 18 Private MD: ED Physician Reece Hebert HPI: 01/29 19:27 This 29 yrs old Male presents to ER via Ambulatory with complaints of Finger kb Injury, Hand Injury. 19:27 The patient or guardian reports pain, tenderness. The complaints affect the right hand kb diffusely. 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 Onset: The symptoms/episode began/occurred just prior to arrival. Modifying factors: The symptoms are alleviated by nothing, the symptoms are aggravated by movement. Associated signs and symptoms: The patient has no apparent associated signs or symptoms. Severity of symptoms: At their worst the symptoms were moderate, in the emergency department the symptoms are unchanged. The patient has not experienced similar symptoms in the past. The patient has not recently seen a physician. 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 now having right hand pain. Historical: - Allergies: 18:49 No Known Allergies; aa5 - Home Meds: 18:49 Novolog Flexpen subcutaneous [Active]; Tresiba FlexTouch U-100 subcutaneous [Active]; aa5 - PMHx: 18:49 ADD/ADHD; Diabetes - IDDM; aa5 - PSHx: 18:49 Ear Tubes; aa5 - Immunization history:: Adult Immunizations unknown. - Social history:: Smoking status: Patient reports use of chewing tobacco. ROS: 19:25 Constitutional: Negative for fever, chills, and weight loss, Cardiovascular: Negative kb for chest pain, palpitations, and edema, Respiratory: Negative for shortness of breath, cough, wheezing, and pleuritic chest pain, Abdomen/GI: Negative for abdominal pain, nausea, vomiting, diarrhea, and constipation, Back: Negative for injury and pain, Skin: Negative for injury, rash, and discoloration, Neuro: Negative for headache, weakness, numbness, tingling, and seizure. 19:25 MS/extremity: Positive for injury or acute deformity, pain, tenderness, of the right hand, Negative for Exam: 19:25 Constitutional: This is a well developed, well nourished patient who is awake, alert, kb and in no acute distress. Head/Face: Normocephalic, atraumatic. Chest/axilla: Normal chest wall appearance and motion. Nontender with no deformity. No lesions are appreciated. Cardiovascular: Regular rate and rhythm with a normal S1 and S2. No gallops, murmurs, or rubs. Normal PMI, no JVD. No pulse deficits. Respiratory: Lungs have equal breath sounds bilaterally, clear to auscultation and percussion. No rales, rhonchi or wheezes noted. No increased work of breathing, no retractions or nasal flaring. Abdomen/GI: Soft, non-tender, with normal bowel sounds. No distension or tympany. No guarding or rebound. No evidence of tenderness throughout. Skin: Warm, dry with normal turgor. Normal color with no rashes, no lesions, and no evidence of cellulitis. Neuro: Awake and alert, GCS 15, oriented to person, place, time, and situation. Cranial nerves II-XII grossly intact. Motor strength 5/5 in all extremities. Sensory grossly intact. Cerebellar exam normal. Normal gait. 19:25 Musculoskeletal/extremity: Extremities: grossly normal except: noted in the right hand: pain, tenderness, ROM: intact in all extremities, Circulation is intact in all extremities. Sensation intact. Vital Signs: 18:49 BP 127 / 82; Pulse 102; Resp 18 S; Temp 99.0(O); Pulse Ox 96% on R/A; Weight 79.38 kg aa5 (R); Height 5 ft. 11 in. (180.34 cm) (R); Pain 7/10; 19:15 BP 114 / 62; Pulse 102; Resp 18; Temp 98.3(O); Pulse Ox 96% on R/A; Pain 9/10; fu 18:49 Body Mass Index 24.41 (79.38 kg, 180.34 cm) aa5 Procedures: 20:26 Splinting: Splint applied to right hand using Orthoglass splint, applied by tech. kb Examined by ms, post splint application: neurovascular intact, 2+ distal pulses palpable, brisk capillary refill noted, Patient tolerated well. MDM: 18:52 Patient medically screened. kb 19:24 Data reviewed: vital signs, nurses notes. Data interpreted: Pulse oximetry: on room air kb is 96 %. Interpretation: normal. Counseling: I had a detailed discussion with the patient and/or guardian regarding: the historical points, exam findings, and any diagnostic results supporting the discharge/admit diagnosis, radiology results, the need for outpatient follow up, a family practitioner, to return to the emergency department if symptoms worsen or persist or if there are any questions or concerns that arise at home. 01/29 18:56 Order name: Hand Right 3 View XRAY; Complete Time: 20:06 kb 01/29 19:32 Order name: Ulnar Gutter splint; Complete Time: 20:17 kb 01/29 19:32 Order name: Sling; Complete Time: 20:17 kb Administered Medications: No medications were administered Disposition: 01/30/20 19:34 Discharged to Home. Impression: Displaced fracture of shaft of fourth metacarpal bone, right hand. - Condition is Stable. - Discharge Instructions: Metacarpal Fracture, [id number]. - Prescriptions for Diclofenac Sodium 75 mg Oral Tablet, Delayed Release (E.C.) - take 1 tablet by ORAL route 2 times per day As needed; 30 tablet. - Medication Reconciliation Form, Thank You Letter, Antibiotic Education, Prescription Opioid Use form. - Follow up: Emergency Department; When: As needed; Reason: Worsening of condition. Follow up: Private Physician; When: 2 - 3 days; Reason: Recheck today's complaints, Continuance of care, Re-evaluation by your physician. Addendum: 02/04/2020 07:01 Co-signature as Attending Physician, Reece Hebert MD. r n Signatures: Dispatcher [employer] [facility] Hanny Farr, SAW OFFBEARER-C SAW OFFBEARER-Ckb Reece Hebert MD MD rn Calderon, Audri, RN RN aa5 José Luis Lopez RN RN fu Corrections: (The following items were deleted from the chart) 01/29 20:27 19:34 01/30/2020 19:34 Discharged to Home. Impression: Displaced fracture of shaft of fu fourth metacarpal bone, right hand. Condition is Stable. Forms are Medication Reconciliation Form, Thank You Letter, Antibiotic Education, Prescription Opioid Use. Follow up: Emergency Department; When: As needed; Reason: Worsening of condition. Follow up: Private Physician; When: 2 - 3 days; Reason: Recheck today's complaints, Continuance of care, Re-evaluation by your physician. kb
--- NOTE | 2020-01-30 19:34 | ER ---
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 aa5 Coronavirus screen: Client denies travel out of the [place] in the last 14 days. At this time, the client does not indicate any symptoms associated with coronavirus-19. Ebola Screen: Patient negative for fever greater than or equal to 101.5 degrees Fahrenheit, and additional compatible Ebola Virus Disease symptoms. Initial Sepsis Screen: Does the patient meet any 2 criteria? No. Patient's initial sepsis screen is negative. Does the patient have a suspected source of infection? No. Patient's initial sepsis screen is negative. Risk Assessment: Do you want to hurt yourself or someone else? Patient reports no desire to harm self or others. Onset of symptoms was January 30, 2020. 18:49 Method Of Arrival: Ambulatory aa5 18:49 Acuity: JAMAL 4 aa5 Historical: - Allergies: 18:49 No Known Allergies; aa5 - Home Meds: 18:49 Novolog Flexpen subcutaneous [Active]; Tresiba FlexTouch U-100 subcutaneous [Active]; aa5 - PMHx: 18:49 ADD/ADHD; Diabetes - IDDM; aa5 - PSHx: 18:49 Ear Tubes; aa5 - Immunization history:: Adult Immunizations unknown. - Social history:: Smoking status: Patient reports use of chewing tobacco. Screenin:33 Abuse screen: Denies threats or abuse. Nutritional screening: No deficits noted. fu Tuberculosis screening: No symptoms or risk factors identified. Fall Risk None identified. Assessment: 19:19 General: Appears in no apparent distress. Behavior is calm, cooperative, appropriate fu for age, Denies fever, feeling ill, fatigue, chills. Pain: Complains of pain in right hand Pain does not radiate. Pain currently is 9 out of 10 on a pain scale. Quality of pain is described as throbbing, Pain began 3 hours ago. Aggravated by movement. Neuro: Level of Consciousness is awake, alert, obeys commands, Oriented to person, place, time, situation, Gait is steady, Speech is normal, Facial symmetry appears normal. Respiratory: Airway is patent. GI: No signs and/or symptoms were reported involving the gastrointestinal system. : No signs and/or symptoms were reported regarding the genitourinary system. Derm: swelling of right hand. Musculoskeletal: Reports pain in right hand. Vital Signs: 18:49 BP 127 / 82; Pulse 102; Resp 18 S; Temp 99.0(O); Pulse Ox 96% on R/A; Weight 79.38 kg aa5 (R); Height 5 ft. 11 in. (180.34 cm) (R); Pain 7/10; 19:15 BP 114 / 62; Pulse 102; Resp 18; Temp 98.3(O); Pulse Ox 96% on R/A; Pain 9/10; fu 18:49 Body Mass Index 24.41 (79.38 kg, 180.34 cm) aa5 ED Course: 18:42 Patient arrived in ED. ag5 18:48 Arm band placed on. aa5 18:50 Triage completed. aa5 18:51 Mike Haddad, RN is Primary Nurse. bp 18:51 Hanny Farr FNP-C is PHCP. kb 18:51 Reece Hebert MD is Attending Physician. kb 19:33 Hand Right 3 View XRAY In Process Unspecified. EDMS 19:34 Patient has correct armband on for positive identification. Bed in low position. Call fu light in reach. Side rails up X 1. Pulse ox on. NIBP on. 20:20 No provider procedures requiring assistance completed. fu 20:20 ulnar gutter splint to right arm and hand applied. fu 20:23 Sling applied to right arm. fu 20:25 Patient did not have IV access during this emergency room visit. fu Administered Medications: No medications were administered Outcome: 19:34 Discharge ordered by . kb 20:25 Discharged to home ambulatory. fu 20:25 Condition: good 20:25 Discharge instructions given to patient, Instructed on discharge instructions, follow up and referral plans. Demonstrated understanding of instructions, follow-up care, Prescriptions given X 1. 20:27 Patient left the ED. fu Signatures: Dispatcher [employer] [facility] Hanny Farr WEB METHODS DEVELOPER-C WEB METHODS DEVELOPER-Ckb Joelle Go, RN RN aa5 José Luis Lopez, RN Mike Luna RN RN Russ Enriquez ag5 Corrections: (The following items were deleted from the chart) 21:55 21:53 ulnar gutter splint to right arm and hand applied. janna saldivar
--- NOTE | 2020-01-30 19:53 | RAD REPORT ---
EXAM DESCRIPTION: RAD - Hand Right 3 View - 01/30/2020 7:34 pm CLINICAL HISTORY: Right hand pain status post injury FINDINGS: Markedly displaced oblique fracture involves the mid fourth metacarpal. No dislocation.
[2020-01-30 20:39] VITALS: O2SAT 96
[2020-01-30 20:41] VITALS: BP 114/62; TEMP 98.3
--- OUTSIDE RECORDS SUMMARY | 2020-01-31 05:26 | XMS REPORT | Continuity of Care Document ---
:1990 Author Organization [facility] [employer] [place] Care Team Providers Name Role Phone [facility] [employer] [place] Unavailable Un available Problems Problem Status Onset Classification Date Comments Sourc e Date Reported Strain of 11/26/2016 [place] muscle, 7 fascia and tendon at neck level, initial encounter ACCIDENT Active [facility] 7 [place] Diabetes Resolved Problem 11/26/2016 [place] mellitus (disorder) Medications Medication Details Route Status Patient Ordering Order Source Instructions Provider Date Cyclobenzaprine 10 mg, PO, Active hydrochloride 10 TID, PRN 017 [place] [facility] Oral Tablet Muscle [Flexeril] Spasm, X 10 day, # 30 tab, 0 Refill(s) Motrin 800 mg oral 800 mg = 1 Active tablet tab, PO, 017 [place] TID, X 7 day, # 21 tab, 0 Refill(s) Allergies, Adverse Reactions, Alerts No Known Medication Allergies Immunizations No Data Provided for This Section Results No Data Provided for This Section Pathology Reports No Data Provided for This Section Diagnostic Reports No Data Provided for This Section Consultation Notes No Data Provided for This Section Discharge Summaries No Data Provided for This Section History and Physicals No Data Provided for This Section Vital Signs Vital Sign Value Date Comments Source Temperature Oral (F) 98.2 F 11/24/2016 [facility] Heart Rate 88 11/24/2016 [facility] Respitory Rate 16 11/24/2016 [facility] Systolic (mm Hg) 117 11/24/2016 [facility] Diastolic (mm Hg) 75 11/24/2016 Ste[facility]i [facility]idal[facility] BMI Calculated 26.6 11/24/2016 [facility] Height 177.8 cm 11/24/2016 [facility] Weight 84.091 11/24/2016 [facility] Respitory Rate 18 11/24/2016 [facility] Heart Rate 91 11/24/2016 [facility] Systolic (mm Hg) 118 11/24/2016 [facility] Diastolic (mm Hg) 76 11/24/2016 [place] Temperature Oral (F) 98.1 F 11/24/2016 Gadiel thomas Encounters Location Location Encounter Encounter Reason Attending ADM DC Stat us Source Details Type Number For Provider Date Date [facility] [id number] [place] 11/24 11/24 [facility] [place] [facility]2016 [facility] Procedures Procedure Code Date Perfomer Comments Source Removal of [id number] [facility] silastic tubes from ear Assessment and Plan No Data Provided for This Section Plan of Care No Data Provided for This Section Social History Social History Date Source Social History TypeResponse 11/24/2016 [facility] Smoking Status Never smoker; Exposure to Tobacco Smoke None; Cigarette Smoking Last 365 Days No; Reg Smoking Cessation Counseling No Family History No Data Provided for This Section Advance Directives No Data Provided for This Section Functional Status No Data Provided for This Section
--- OUTSIDE RECORDS SUMMARY | 2020-01-31 05:26 | XMS REPORT | Clinical Summary ---
:1990 Author Organization [facility] Address [address] [place] [address] Care Team Providers Name Role Phone Pcp, No Primary Care Provider Unavailable Allergies No Known Allergies Medications Medication Sig Dispensed Refills Start Date End Date Status insulin glargine Inject 30-35 Units 0 Active (LANTUS) 100 subcutaneously 2 (two) unit/mL injection times daily Use as directed . Active Problems Problem Noted Date Diabetic ketoacidosis without coma 10/14/2018 GI bleed 10/14/2018 Acidosis 10/14/2018 Social History Tobacco Use Types Packs/Day Years Used Date Never Assessed Sex Assigned at Date Recorded Not on file Job Start Date Occupation Industry Not on file Not on file Not on file Travel History Travel Start Travel End No recent travel history available. Last Filed Vital Signs Not on file Plan of Treatment Not on file Results Not on fileafter 01/29/2019 Advance Directives For more information, please contact:[facility], [place] [phone] Code Status Date Activated Date Inactivated Comments Full Code 10/14/2018 3:52 PM 10/18/2018 2:17 PM This code status was determined by: Patient
--- OUTSIDE RECORDS SUMMARY | 2020-01-31 05:28 | XMS REPORT | Continuity of Care Document ---
:1990 Author Organization [facility] t Address [address] [place] [address] Care Team Providers Name Role Phone Pcp Primary Care Physician Unavailable Cory GARZA, Tegan Attending Clinician Doctor Unassigned, Name Attending Clinician Unavailable INNA MARTINEZ Attending Clinician Unavailable Miriam Almonte Attending Clinician INNA MARTINEZ Admitting Clinician Unavailable Problems Condition Condition Condition Status Onset Resolution Last Treating Co mments Source Name Details Category Date Date Treatment Clinician Date Diabetic Diabetic Disease [facility] Rhianna kes - is without is without 00:00: Me dical coma coma 00 Center GI bleed [facility] bleed Disease [facility] Acidosis Acidosis Disease [facility] [place] ACCIDENT Diagnosis Active 2017-03-28 M emoria 11-22 13:59:00 l ACCIDENT 13:00: Ministerio n 00 Active 11/22/2016 Alva Calderon Diabetes Problem Resolve 2016-11-26 Me moria mellitus d 05:37:49 l (disorder) Diabetes He rmann mellitus (disorder) Resolved Problem 11/26/2016 MAGAN Ledbetter Strain of Problem 2016-11-26 2016-11-26 Memoria muscle, 11-23 05:37:49 05:37:49 l fascia and Strain 05:00: Herm phyllis tendon at of muscle, 00 neck fascia and level, tendon at initial neck encounter level, initial encounter 11/23/2016 11/26/2016 [facility] Allergies, Adverse Reactions, Alerts This patient has no known allergies or adverse reactions. Social History Social Habit Start Date Stop Date Quantity Comments Source Sex Assigned At [facility] Smoking Status Start Date Stop Date Source Social [facility] Ordered Filled Start Stop Current Ordering Indication Dosage Frequency Signature Comments Components Source Medication Medication Date Date Medication? Clinician (SIG) Name Name insulin Yes 30U Q.5D Inject [facility] glargine 10-17 30-[address] [facility] - ([facility]) 13:55: Units Medical 100 unit/mL 32 subcutaneo Ce nter injection usly 2 (two) times daily Use as directed . Cyclobenzap Yes 10 mg, PO, Memoria rine 803 TID, PRN l hydrochlori 02:13: Muscle Herm phyllis de 10 MG 00 Spasm, X Oral Tablet 10 day, # [Flexeril] 30 tab, 0 Refill(s) Motrin 800 Yes 800 mg = 1 M emoria mg oral 03 tab, PO, l tablet 02:13: TID, X 7 [place] 00 day, # 21 tab, 0 Refill(s) Vital Signs Vital Name Observation Time Observation Value Comments Source Temperature Oral (F) 2016-11-24 03:00:00 98.2 F [facility] Heart Rate 2016-11-24 03:00:00 [facility] Respitory Rate 2016-11-24 03:00:00 Memori al [place] Systolic (mm Hg) 2016-11-24 03:00:00 [facility]ane[facility] [place] Diastolic (mm Hg) 2016-11-24 03:00:00 Mem orial [place] BMI Calculated 2016-11-24 01:48:00 Memori al [place] Height 2016-11-24 01:48:00 177.8 cm [facility] Weight 2016-11-24 01:48:00 [facility] [place] Respitory Rate 2016-11-24 01:48:00 Memori al [place] Heart Rate 2016-11-24 01:48:00 [facility] [place] Systolic (mm Hg) 2016-11-24 01:48:00 Praneeth rial [place] Diastolic (mm Hg) 2016-11-24 01:48:00 Mil Calderon Temperature Oral (F) 2016-11-24 01:48:00 98.1 F Alva Calderon Procedures Procedure Date / Time Performed Performing Clinician [facility] e Removal of silastic tubes Nik Spicer from ear Encounters Start End Encounter Admission Attending Care Care Encounter Source Date/Time Date/Time Type Type Clinicians Facility Department ID 2019-07-22 2019-07-22 Telephone LIZ Ray [id number] 00:00:00 00:00:00 Wondiful A Toyah [id number] [place] [id number] Professio [id number] nal 044 Building 2019-07-18 2019-07-18 Orders Doctor KHANH [id number] 00:00:00 00:00:00 Only Unassigned, MARSHALL [id number] [place] [facility] [id number] 2016-11-23 2016-11-23 Outpatient EULOGIO Almonte [facility] [id number] 20:46:00 22:02:00 Abdiwahab 00 Pineda Results Test Description Test Time Test Comments Results Result Comments Source BLOOD CULTURE 2018-10-20 02:01:00 Test Item Value Reference Range Interpretation Comme nts CULTURE (BEAKER) (test code = 1095) No growth in 5 days BLOOD [id number] 02:01:00 Test Item Value Reference Range Interpretation Comments CULTURE (BEAKER) (test No growth in 5 days code = 1095) MRSA [id number] 09:59:00 Test Item Value Reference Range Interpretation Comments CULTURE (BEAKER) (test code No MRSA isolated = 1095) TISSUE [id number] 15:35:00Surgical Pathology Report Case: [id number] Authorizing Provider: Won Randall MD Collected: 10/17/2018 0823 Ordering Location: [address] Received: 10/17/2018 1401 Service Pathologist: Natividad Shrestha MD Specimens: A) - Duodenum, random bx B) -Biopsy, Gastric, body and antrum A. DUODENUM , RANDOM BIOPSY- NO DIAGNOSTIC ALTERATIONB. STOMACH, BODY AND ANTRUM, BIOPSY- CHRONIC INACTIVE GASTRITIS, MILD- NO INTESTINAL METAPLASIA, DYSPLASIA OR INVASIVE CARCINOMA IDENTIIFIED- NO HELICOBACTER PYLORI LIKE ORGANISMS IDENTIFIED ON WARTHIN STARRY STAIN Signing Pathologist Direct Phone Line: [phone] signed by Natividad Shrestha MD on 10/18/2018 at 3:35 [id number] x 2, [id number] and postop diagnosis: intractable vomiting, presence of [...] evaluated Immunohistochemistry technical testing was performed at [facility], Pathology Laboratory where it was developed and [...] to perform high complexity clinical laboratory testing.POCT-GLUCOSE [id number] 10:09:00 Test Item Value Reference Range Interpretation Comments POC-GLUCOSE METER 118 mg/dL 70-[address] [facility] [address] ([facility]) (test code = [place] 1538) [id number] 06:56:00 Test Item Value Reference Range Interpretation Comments MAGNESIUM ([facility]) (test code = 2.0 mg/dL 1.6-2.6 627) BASIC METABOLIC [id number] 06:40:00 Test Item Value Reference Range Interpretation Comments SODIUM (BEAKER) 141 meq/L 136-145 (test code = 381) POTASSIUM (BEAKER) 3.4 meq/L 3.5-5.1 L (test code = 379) CHLORIDE (BEAKER) 106 meq/L 98-107 (test code = 382) CO2 (BEAKER) (test 28 meq/L 22-29 code = 355) BLOOD UREA NITROGEN 10 mg/dL 7-21 (BEAKER) (test code = 354) CREATININE (BEAKER) 0.95 mg/dL 0.57-1.25 (test code = 358) GLUCOSE RANDOM 249 mg/dL 70-105 H (BEAKER) (test code = 652) CALCIUM (BEAKER) 8.5 mg/dL 8.4-10.2 (test code = 697) EGFR (BEAKER) (test 94 mL/min/1.73 ESTIMA GUNNAR GFR IS code = 1092) sq m NOT ACCURATE CREATININE CLEARANCE IN PREDICTING GLOMERULAR FILTRATION RATE . ESTIMATED GFR I S NOT APPLICABLE FOR DIALYSIS PATIEN TS. POCT-GLUCOSE [id number] 20:40:00 Test Item Value Reference Range Interpretation Comments POC-GLUCOSE METER 172 mg/dL 70-110 H TESTED AT [place] [address] ([facility]) ([facility] = [facility] 1538) [id number] POCT-GLUCOSE [id number] 18:25:00 Test Item Value Reference Range Interpretation Comments POC-GLUCOSE METER 200 mg/dL 70-110 H TESTED AT [place] [address] ([facility]) (test code = [facility] Karol [facility] 1538) [id number] POCT-GLUCOSE [id number] 15:26:00 Test Item Value Reference Range Interpretation Comments POC-GLUCOSE METER 232 mg/dL 70-[address] [facility] [address] ([facility]) (test code = [facility] Karol [place] 1538) [address] POCT-GLUCOSE [id number] 13:00:00 Test Item Value Reference Range Interpretation Comments POC-GLUCOSE METER 228 mg/dL 70-[address] [facility] [address] ([facility]) (test code = [facility] Karol [place] 1538) [id number] POCT-GLUCOSE [id number] 10:43:00 Test Item Value Reference Range Interpretation Comments POC-GLUCOSE METER 207 mg/dL 70-[address] [facility] 67[address] (BEAKER) (test code = CAROLA Roberson [place] 1538) [address] POCT-GLUCOSE [id number] 09:16:00 Test Item Value Reference Range Interpretation Comments POC-GLUCOSE METER 269 mg/dL 70-[address] [facility] 67[address] (BEAKER) (test code = CAROLA Roberson [place] 1538) [address] POCT-GLUCOSE [id number] 07:26:00 Test Item Value Reference Range Interpretation Comments POC-GLUCOSE METER 239 mg/dL 70-[address] [facility] [address] (BEAKER) (test code = CAROL[place] Roberson [facility] 1538) [id number] BASIC METABOLIC [id number] 06:42:00 Test Item Value Reference Range Interpretation Comments SODIUM (BEAKER) 143 meq/L 136-145 (test code = 381) POTASSIUM (BEAKER) 4.1 meq/L 3.5-5.1 (test code = 379) CHLORIDE (BEAKER) 108 meq/L 98-107 H (test code = 382) CO2 (BEAKER) (test 28 meq/L 22-29 code = 355) BLOOD UREA NITROGEN 8 mg/dL 7-21 (BEAKER) (test code = 354) CREATININE (BEAKER) 1.12 mg/dL 0.57-1.25 (test code = 358) GLUCOSE RANDOM 261 mg/dL 70-105 H (BEAKER) (test code = 652) CALCIUM (BEAKER) 8.7 mg/dL 8.4-10.2 (test code = 697) EGFR (BEAKER) (test 78 mL/min/1.73 ESTIMA GUNNAR GFR IS code = 1092) sq m NOT ACCURATE CREATININE CLEARANCE IN PREDICTING GLOMERULAR FILTRATION RATE . ESTIMATED GFR I S NOT APPLICABLE FOR DIALYSIS PATIEN TS. [id number] 06:42:00 Test Item Value Reference Range Interpretation Comments PHOSPHORUS (BEAKER) (test code = 2.0 mg/dL 2.3-4.7 L 604) [id number] 06:42:00 Test Item Value Reference Range Interpretation Comments MAGNESIUM (BEAKER) (test code = 2.3 mg/dL 1.6-2.6 627) CBC W/PLT COUNT & AUTO [id number] 06:34:00 Test Item Value Reference Range Interpretation Comments WHITE BLOOD CELL COUNT (BEAKER) 7.3 K/ L 3.5-10.5 (test code = 775) RED BLOOD CELL COUNT (BEAKER) 4.40 M/ L 4.63-6.08 L (test code = 761) HEMOGLOBIN (BEAKER) (test code = 13.4 GM/DL 13.7-17.5 L 410) HEMATOCRIT (BEAKER) (test code = 38.4 % 40.1-51.0 L 411) MEAN CORPUSCULAR VOLUME (BEAKER) 87.3 fL 79.0-92.2 (test code = 753) MEAN CORPUSCULAR HEMOGLOBIN 30.5 pg 25.7-32.2 (BEAKER) (test code = 751) MEAN CORPUSCULAR HEMOGLOBIN CONC 34.9 GM/DL 32.3-36.5 (BEAKER) (test code = 752) RED CELL DISTRIBUTION WIDTH 12.0 % 11.6-14.4 (BEAKER) (test code = 412) PLATELET COUNT (BEAKER) (test 122 K/CU MM 150-450 L code = 756) MEAN PLATELET VOLUME (BEAKER) 9.4 fL 9.4-12.4 (test code = 754) NUCLEATED RED BLOOD CELLS 0 /100 WBC 0-0 (BEAKER) (test code = 413) NEUTROPHILS RELATIVE PERCENT 70 % (BEAKER) (test code = 429) LYMPHOCYTES RELATIVE PERCENT 22 % (BEAKER) (test code = 430) MONOCYTES RELATIVE PERCENT 7 % (BEAKER) (test code = 431) EOSINOPHILS RELATIVE PERCENT 0 % (BEAKER) (test code = 432) BASOPHILS RELATIVE PERCENT 0 % (BEAKER) (test code = 437) NEUTROPHILS ABSOLUTE COUNT 5.08 K/ L 1.78-5.38 (BEAKER) (test code = 670) LYMPHOCYTES ABSOLUTE COUNT 1.60 K/ L 1.32-3.57 (BEAKER) (test code = 414) MONOCYTES ABSOLUTE COUNT (BEAKER) 0.54 K/ L 0.30-0.82 (test code = 415) EOSINOPHILS ABSOLUTE COUNT 0.02 K/ L 0.04-0.54 L (BEAKER) (test code = 416) BASOPHILS ABSOLUTE COUNT (BEAKER) 0.02 K/ L 0.01-0.08 (test code = 417) IMMATURE GRANULOCYTES-RELATIVE 0 % 0-1 PERCENT ([facility]) (test code = 2801) POCT-GLUCOSE [id number] 22:23:00 Test Item Value Reference Range Interpretation Comments POC-GLUCOSE METER 237 mg/dL 70-110 H TESTED AT [place] [address] ([facility]) (test code = CAROLA Roberson [place] 1538) [id number] POCT-GLUCOSE [id number] 20:39:00 Test Item Value Reference Range Interpretation Comments POC-GLUCOSE METER 298 mg/dL 70-110 H TESTED AT [place] [address] ([facility]) (test code = CAROLA Roberson [place] 1538) [id number] POCT-GLUCOSE [id number] 17:49:00 Test Item Value Reference Range Interpretation Comments POC-GLUCOSE METER 255 mg/dL 70-110 H TESTED AT [place] [address] ([facility]) (test code = CAROLA Roberson [place] 1538) [id number] POCT-GLUCOSE [id number] 13:35:00 Test Item Value Reference Range Interpretation Comments POC-GLUCOSE METER 190 mg/dL 70-110 H TESTED AT [place] [address] ([facility]) (test code = CAR[place] Rob[place] 1538) [id number] POCT-GLUCOSE [id number] 12:31:00 Test Item Value Reference Range Interpretation Comments POC-GLUCOSE METER 204 mg/dL 70-110 H TESTED AT [place] [address] ([facility]) (test code = CAROLA Rob[place] 1538) [address] POCT-GLUCOSE [id number] 11:38:00 Test Item Value Reference Range Interpretation Comments POC-GLUCOSE METER 165 mg/dL 70-110 H TESTED AT [place] [address] ([facility]) (test code = CAROLA Rob[place] 1538) [address] POCT-GLUCOSE [id number] 10:35:00 Test Item Value Reference Range Interpretation Comments POC-GLUCOSE METER 231 mg/dL 70-110 H TESTED AT [place] [address] ([facility]) (test code = CAROLA Roberson [place] 1538) [address] BASIC METABOLIC [id number] 09:52:00 Test Item Value Reference Range Interpretation Comments SODIUM ([facility]) 148 meq/L 136-145 H (test code = 381) POTASSIUM ([facility]) 3.4 meq/L 3.5-5.1 L (test code = 379) CHLORIDE (BEAKER) 116 meq/L 98-107 H (test code = 382) CO2 (BEAKER) (test 26 meq/L 22-29 code = 355) BLOOD UREA NITROGEN 7 mg/dL 7-21 (BEAKER) (test code = 354) CREATININE (BEAKER) 1.26 mg/dL 0.57-1.25 H (test code = 358) GLUCOSE RANDOM 208 mg/dL 70-105 H (BEAKER) (test code = 652) CALCIUM (BEAKER) 8.3 mg/dL 8.4-10.2 L (test code = 697) EGFR (BEAKER) (test 68 mL/min/1.73 ESTIMA GUNNAR GFR IS code = 1092) sq m NOT ACCURATE CREATININE CLEARANCE IN PREDICTING GLOMERULAR FILTRATION RATE . ESTIMATED GFR I S NOT APPLICABLE FOR DIALYSIS PATIEN TS. [id number] 09:52:00 Test Item Value Reference Range Interpretation Comments PHOSPHORUS (BEAKER) (test code = 2.0 mg/dL 2.3-4.7 L 604) [id number] 09:52:00 Test Item Value Reference Range Interpretation Comments MAGNESIUM (BEAKER) (test code = 2.2 mg/dL 1.6-2.6 627) POCT-GLUCOSE [id number] 09:28:00 Test Item Value Reference Range Interpretation Comments POC-GLUCOSE METER 213 mg/dL 70-[address] [facility] 67[address] (BEAKER) (test code = [place] 1538) [id number] RAD, ABDOMEN/KUB, 1 VIEW [id number] 09:12:00Reason for exam:->recurrent vomitingShould this be performed at the bedside?->YesFINAL REPORT CLINICAL HISTORY: recurrent vomiting TECHNIQUE: Supine abdomen CO MPARISON: None IMPRESSION: The bowel gas pattern is nonspecific. Free air and air-fluid levels are not seen but cannot be definitively excluded on the supine view. There is a 3 mm phlebolith or stone in the left hemipelvis. Signed: Luis Chung MDReport Verified Date/Time: 10/16/2018 09:12:50 Reading Location: [facility] Radiology Reading Room POCT-GLUCOSE [id number] 08:41:00 Test Item Value Reference Range Interpretation Comments POC-GLUCOSE METER 206 mg/dL 70-[address] [facility] 67[address] (BEAKER) (test code = CAROLA Roberson [facility] 1538) [id number] POCT-GLUCOSE [id number] 07:46:00 Test Item Value Reference Range Interpretation Comments POC-GLUCOSE METER 203 mg/dL 70-[address] [facility] 67[address] (BEAKER) (test code = CAROLA Roberson [facility] 1538) [id number] 07:14:00 Test Item Value Reference Range Interpretation Comments MAGNESIUM (BEAKER) 2.2 mg/dL 1.6-2.6 Specimen slightly (test code = 627) hemolyzed [id number] 07:14:00 Test Item Value Reference Range Interpretation Comments PHOSPHORUS (BEAKER) 2.4 mg/dL 2.3-4.7 Specimen slightly (test code = 604) hemolyzed BASIC METABOLIC [id number] 07:14:00 Test Item Value Reference Range Interpretation Comments SODIUM (BEAKER) 149 meq/L 136-145 H (test code = 381) POTASSIUM (BEAKER) 3.6 meq/L 3.5-5.1 Specimen slightly (test code = 379) hemolyzed CHLORIDE (BEAKER) 118 meq/L 98-107 H (test code = 382) CO2 (BEAKER) (test 22 meq/L 22-29 code = 355) BLOOD UREA NITROGEN 8 mg/dL 7-21 (BEAKER) (test code = 354) CREATININE (BEAKER) 1.26 mg/dL 0.57-1.25 H Specimen slightly (test code = 358) hemolyzed GLUCOSE RANDOM 185 mg/dL 70-105 H (BEAKER) (test code = 652) CALCIUM (BEAKER) 8.2 mg/dL 8.4-10.2 L (test code = 697) EGFR (BEAKER) (test 68 mL/min/1.73 ESTIMA GUNNAR GFR IS code = 1092) sq m NOT ACCURATE CREATININE CLEARANCE IN PREDICTING GLOMERULAR FILTRATION RATE . ESTIMATED GFR I S NOT APPLICABLE FOR DIALYSIS PATIEN TS. LACTIC ACID, [id number] 06:58:00 Test Item Value Reference Range Interpretation Comments LACTATE BLOOD ARTERIAL (2) 1.0 mmol/L 0.5-2.2 (BEAKER) (test code = 2874) CBC W/PLT COUNT & AUTO [id number] 06:47:00 Test Item Value Reference Range Interpretation Comments WHITE BLOOD CELL COUNT (BEAKER) 8.8 K/ L 3.5-10.5 (test code = 775) RED BLOOD CELL COUNT (BEAKER) 3.71 M/ L 4.63-6.08 L (test code = 761) HEMOGLOBIN (BEAKER) (test code = 11.2 GM/DL 13.7-17.5 L 410) HEMATOCRIT (BEAKER) (test code = 33.1 % 40.1-51.0 L 411) MEAN CORPUSCULAR VOLUME (BEAKER) 89.2 fL 79.0-92.2 (test code = 753) MEAN CORPUSCULAR HEMOGLOBIN 30.2 pg 25.7-32.2 (BEAKER) (test code = 751) MEAN CORPUSCULAR HEMOGLOBIN CONC 33.8 GM/DL 32.3-36.5 (BEAKER) (test code = 752) RED CELL DISTRIBUTION WIDTH 13.2 % 11.6-14.4 (BEAKER) (test code = 412) PLATELET COUNT (BEAKER) (test code 52 K/CU MM 150-450 L = 756) MEAN PLATELET VOLUME (BEAKER) 10.7 fL 9.4-12.4 (test code = 754) NUCLEATED RED BLOOD CELLS (BEAKER) 0 /100 WBC 0-0 (test code = 413) NEUTROPHILS RELATIVE PERCENT 85 % (BEAKER) (test code = 429) LYMPHOCYTES RELATIVE PERCENT 10 % (BEAKER) (test code = 430) MONOCYTES RELATIVE PERCENT 5 % (BEAKER) (test code = 431) EOSINOPHILS RELATIVE PERCENT 0 % (BEAKER) (test code = 432) BASOPHILS RELATIVE PERCENT 0 % (BEAKER) (test code = 437) NEUTROPHILS ABSOLUTE COUNT 7.43 K/ L 1.78-5.38 H (BEAKER) (test code = 670) LYMPHOCYTES ABSOLUTE COUNT 0.84 K/ L 1.32-3.57 L (BEAKER) (test code = 414) MONOCYTES ABSOLUTE COUNT (BEAKER) 0.45 K/ L 0.30-0.82 (test code = 415) EOSINOPHILS ABSOLUTE COUNT 0.00 K/ L 0.04-0.54 L ([facility]) (test code = 416) BASOPHILS ABSOLUTE COUNT ([facility]) 0.02 K/ L 0.01-0.08 (test code = 417) IMMATURE GRANULOCYTES-RELATIVE 0 % 0-1 PERCENT ([facility]) (test code = 2801) HEMOGLOBIN AND [id number] 06:42:00 Test Item Value Reference Range Interpretation Comments HEMOGLOBIN ([facility]) (test code = 11.2 GM/DL 13.7-17.5 L 410) HEMATOCRIT ([facility]) (test code = 33.1 % 40.1-51.0 L 411) POCT-GLUCOSE [id number] 06:22:00 Test Item Value Reference Range Interpretation Comments POC-GLUCOSE METER 193 mg/dL 70-110 H TESTED AT [place] [address] ([facility]) (test code = CARLOSYOSEF Roberson [place] 1538) [id number] POCT-GLUCOSE [id number] 05:31:00 Test Item Value Reference Range Interpretation Comments POC-GLUCOSE METER 185 mg/dL 70-110 H TESTED AT [place] [address] ([facility]) (test code = CARLOSYOSEF Roberson [place] 1538) [id number] POCT-GLUCOSE [id number] 04:02:00 Test Item Value Reference Range Interpretation Comments POC-GLUCOSE METER 191 mg/dL 70-110 H TESTED AT [place] [address] ([facility]) (test code = CARLOSYOSEF Rob[place] 1538) [address] POCT-GLUCOSE [id number] 03:08:00 Test Item Value Reference Range Interpretation Comments POC-GLUCOSE METER 170 mg/dL 70-110 H TESTED AT [place] [address] ([facility]) (test code = CARLOSYOSEF Roberson [place] 1538) [address] POCT-GLUCOSE [id number] 02:24:00 Test Item Value Reference Range Interpretation Comments POC-GLUCOSE METER 155 mg/dL 70-110 H TESTED AT [place] [address] ([facility]) (test code = CARLOSYOSEF Roberson [place] 1538) [address] POCT-GLUCOSE [id number] 01:43:00 Test Item Value Reference Range Interpretation Comments POC-GLUCOSE METER 158 mg/dL 70-110 H TESTED AT [place] [address] ([facility]) (test code = CAROLA Roberson [facility] 1538) [address] BASIC METABOLIC [id number] 00:59:00 Test Item Value Reference Range Interpretation Comments SODIUM (BEAKER) 148 meq/L 136-145 H (test code = 381) POTASSIUM (BEAKER) 3.3 meq/L 3.5-5.1 L Specimen slightly (test code = 379) hemolyzed CHLORIDE (BEAKER) 118 meq/L 98-107 H (test code = 382) CO2 (BEAKER) (test 20 meq/L 22-29 L code = 355) BLOOD UREA NITROGEN 9 mg/dL 7-21 (BEAKER) (test code = 354) CREATININE (BEAKER) 1.35 mg/dL 0.57-1.25 H Specimen slightly (test code = 358) hemolyzed GLUCOSE RANDOM 190 mg/dL 70-105 H (BEAKER) (test code = 652) CALCIUM (BEAKER) 7.8 mg/dL 8.4-10.2 L (test code = 697) EGFR (BEAKER) (test 63 mL/min/1.73 ESTIMA GUNNAR GFR IS code = 1092) sq m NOT ACCURATE CREATININE CLEARANCE IN PREDICTING GLOMERULAR FILTRATION RATE . ESTIMATED GFR I S NOT APPLICABLE FOR DIALYSIS PATIEN TS. [id number] 00:58:00 Test Item Value Reference Range Interpretation Comments MAGNESIUM (BEAKER) 2.4 mg/dL 1.6-2.6 Specimen slightly (test code = 627) hemolyzed [id number] 00:58:00 Test Item Value Reference Range Interpretation Comments PHOSPHORUS (BEAKER) 1.6 mg/dL 2.3-4.7 L Specimen slightly (test code = 604) hemolyzed HEMOGLOBIN AND [id number] 00:31:00 Test Item Value Reference Range Interpretation Comments HEMOGLOBIN (BEAKER) (test code = 11.9 GM/DL 13.7-17.5 L 410) HEMATOCRIT (BEAKER) (test code = 34.5 % 40.1-51.0 L 411) POCT-GLUCOSE [id number] 00:30:00 Test Item Value Reference Range Interpretation Comments POC-GLUCOSE METER 188 mg/dL 70-[address] [facility] 6720 (BEAKER) (test code = CAROLA Roberson [place] 1538) [id number] POCT-GLUCOSE [id number] 23:07:00 Test Item Value Reference Range Interpretation Comments POC-GLUCOSE METER 191 mg/dL 70-[address] [facility] [address] (BEAKER) (test code = CAROLA Roberson [place] 1538) [id number] POCT-GLUCOSE [id number] 22:03:00 Test Item Value Reference Range Interpretation Comments POC-GLUCOSE METER 205 mg/dL 70-110 H TESTED AT [place] [id number] (BEAKER) (test code = CAROLA Roberson [place] 1538) [id number] BASIC METABOLIC [id number] 21:06:00 Test Item Value Reference Range Interpretation Comments SODIUM (BEAKER) 148 meq/L 136-145 H (test code = 381) POTASSIUM (BEAKER) 3.5 meq/L 3.5-5.1 (test code = 379) CHLORIDE (BEAKER) 118 meq/L 98-107 H (test code = 382) CO2 (BEAKER) (test 18 meq/L 22-29 L code = 355) BLOOD UREA NITROGEN 10 mg/dL 7-21 (BEAKER) (test code = 354) CREATININE (BEAKER) 1.38 mg/dL 0.57-1.25 H (test code = 358) GLUCOSE RANDOM 180 mg/dL 70-105 H (BEAKER) (test code = 652) CALCIUM (BEAKER) 8.4 mg/dL 8.4-10.2 (test code = 697) EGFR (BEAKER) (test 61 mL/min/1.73 ESTIMA GUNNAR GFR IS code = 1092) sq m NOT ACCURATE CREATININE CLEARANCE IN PREDICTING GLOMERULAR FILTRATION RATE . ESTIMATED GFR I S NOT APPLICABLE FOR DIALYSIS PATIEN TS. VANCOMYCIN LEVEL, [id number] 21:04:00 Test Item Value Reference Range Interpretation Comments VANCOMYCIN TROUGH (BEAKER) (test 5.8 ug/mL 10.0-20.0 L code = 522) If level is >20, hold scheduled vancomycin dose and contact PharmD/MD. Thank youPOCT-GLUCOSE [id number] 21:00:00 Test Item Value Reference Range Interpretation Comments POC-GLUCOSE METER 202 mg/dL 70-[address] [facility] [address] (BEAKER) (test code = CAROLA Roberson [place] 1538) [id number] POCT-GLUCOSE [id number] 20:08:00 Test Item Value Reference Range Interpretation Comments POC-GLUCOSE METER 180 mg/dL 70-[address] [facility] [address] (BEAKER) (test code = [place] 1538) [id number] POCT-GLUCOSE [id number] 18:39:00 Test Item Value Reference Range Interpretation Comments POC-GLUCOSE METER 175 mg/dL 70-110 H TESTED AT [facility] 6720 (BEAKER) (test code = CAROLA Roberson [place] 1538) [id number] POCT-GLUCOSE [id number] 17:22:00 Test Item Value Reference Range Interpretation Comments POC-GLUCOSE METER 209 mg/dL 70-[address] [facility] 6720 (BEAKER) (test code = CAROLA Roberson [place] 1538) [address] URINALYSIS W/ REFLEX URINE [id number] 16:58:00 Test Item Value Reference Range Interpretation Comments COLOR (BEAKER) (test code = 470) Light Yellow CLARITY (BEAKER) (test code = Clear 469) SPECIFIC GRAVITY UA (BEAKER) 1.015 1.001-1.035 (test code = 468) PH UA (BEAKER) (test code = 467) 5.5 5.0-8.0 PROTEIN UA (BEAKER) (test code = 30 mg/dL Negative A 464) GLUCOSE UA (BEAKER) (test code = >1000 mg/dL Negative A 365) KETONES UA (BEAKER) (test code = 150 mg/dL Negative A 371) BILIRUBIN UA (BEAKER) (test code Negative Negative = 462) BLOOD UA (BEAKER) (test code = Small Negative A 461) NITRITE UA (BEAKER) (test code = Negative Negative 465) LEUKOCYTE ESTERASE UA (BEAKER) Negative Negative (test code = 466) UROBILINOGEN UA (BEAKER) (test 0.2 mg/dL 0.2-1.0 code = 463) RBC UA (BEAKER) (test code = < /HPF 519) WBC UA (BEAKER) (test code = 1 /HPF 520) MUCUS (BEAKER) (test code = Rare 1574) SOURCE(BEAKER) (test code = 2795) HEMOGLOBIN AND [id number] 16:36:00 Test Item Value Reference Range Interpretation Comments HEMOGLOBIN (BEAKER) (test code = 13.0 GM/DL 13.7-17.5 L 410) HEMATOCRIT (BEAKER) (test code = 37.3 % 40.1-51.0 L 411) POCT-GLUCOSE [id number] 16:20:00 Test Item Value Reference Range Interpretation Comments POC-GLUCOSE METER 217 mg/dL 70-[address] [facility] 6720 (BEAKER) (test code = CAROLA Roberson [place] 1538) [address] BASIC METABOLIC [id number] 16:19:00 Test Item Value Reference Range Interpretation Comments SODIUM (BEAKER) 150 meq/L 136-145 H (test code = 381) POTASSIUM (BEAKER) 3.6 meq/L 3.5-5.1 (test code = 379) CHLORIDE (BEAKER) 119 meq/L 98-107 H (test code = 382) CO2 (BEAKER) (test 16 meq/L 22-29 L code = 355) BLOOD UREA NITROGEN 14 mg/dL 7-21 (BEAKER) (test code = 354) CREATININE (BEAKER) 1.53 mg/dL 0.57-1.25 H (test code = 358) GLUCOSE RANDOM 210 mg/dL 70-105 H (BEAKER) (test code = 652) CALCIUM (BEAKER) 7.9 mg/dL 8.4-10.2 L (test code = 697) EGFR (BEAKER) (test 54 mL/min/1.73 ESTIMA GUNNAR GFR IS code = 1092) sq m NOT ACCURATE CREATININE CLEARANCE IN PREDICTING GLOMERULAR FILTRATION RATE . ESTIMATED GFR I S NOT APPLICABLE FOR DIALYSIS PATIEN TS. [id number] 16:15:00 Test Item Value Reference Range Interpretation Comments PHOSPHORUS (BEAKER) (test code = 3.4 mg/dL 2.3-4.7 604) [id number] 16:15:00 Test Item Value Reference Range Interpretation Comments MAGNESIUM (BEAKER) (test code = 2.1 mg/dL 1.6-2.6 627) POCT-GLUCOSE [id number] 15:13:00 Test Item Value Reference Range Interpretation Comments POC-GLUCOSE METER 205 mg/dL 70-[address] [facility] 6720 (BEAKER) (test code = CAROLA Roberson [place] 1538) [address] POCT-GLUCOSE [id number] 14:17:00 Test Item Value Reference Range Interpretation Comments POC-GLUCOSE METER 154 mg/dL 70-[address] [facility] 6720 (BEAKER) (test code = [place] 1538) [address] POCT-GLUCOSE [id number] 13:34:00 Test Item Value Reference Range Interpretation Comments POC-GLUCOSE METER 144 mg/dL 70-[address] [facility] 6720 (BEAKER) (test code = [place] 1538) [address] BASIC METABOLIC [id number] 12:52:00 Test Item Value Reference Range Interpretation Comments SODIUM (BEAKER) 154 meq/L 136-145 H (test code = 381) POTASSIUM (BEAKER) 3.6 meq/L 3.5-5.1 (test code = 379) CHLORIDE (BEAKER) 125 meq/L 98-107 H (test code = 382) CO2 (BEAKER) (test 17 meq/L 22-29 L code = 355) BLOOD UREA NITROGEN 16 mg/dL 7-21 (BEAKER) (test code = 354) CREATININE (BEAKER) 1.49 mg/dL 0.57-1.25 H (test code = 358) GLUCOSE RANDOM 165 mg/dL 70-105 H (BEAKER) (test code = 652) CALCIUM (BEAKER) 7.8 mg/dL 8.4-10.2 L (test code = 697) EGFR (BEAKER) (test 56 mL/min/1.73 ESTIMA GUNNAR GFR IS code = 1092) sq m NOT ACCURATE CREATININE CLEARANCE IN PREDICTING GLOMERULAR FILTRATION RATE . ESTIMATED GFR I S NOT APPLICABLE FOR DIALYSIS PATIEN TS. [id number] 12:45:00 Test Item Value Reference Range Interpretation Comments PHOSPHORUS (BEAKER) (test code = 1.8 mg/dL 2.3-4.7 L 604) [id number] 12:45:00 Test Item Value Reference Range Interpretation Comments MAGNESIUM (BEAKER) (test code = 2.4 mg/dL 1.6-2.6 627) BLOOD GAS, [id number] 12:26:00 Test Item Value Reference Range Interpretation Comments PH ARTERIAL (BEAKER) (test code = 7.40 7.35-7.45 383) PCO2 ARTERIAL (BEAKER) (test code 30 mmHg 35-45 L = 384) PO2 ARTERIAL (BEAKER) (test code 111 mmHg 80-90 H = 385) O2 SATURATION ARTERIAL (BEAKER) 98.1 % 96.0-97.0 H (test code = 386) HCO3 ARTERIAL (BEAKER) (test code 18 mmol/L 21-29 L = 388) BASE EXCESS ARTERIAL (BEAKER) -5.5 mmol/L -2.0-3.0 L (test code = 387) PATIENT TEMPERATURE (BEAKER) 37.1 C (test code = 1818) FIO2 (BEAKER) (test code = 1819) 21.0 % HEMOGLOBIN AND [id number] 12:24:00 Test Item Value Reference Range Interpretation Comments HEMOGLOBIN (BEAKER) (test code = 11.9 GM/DL 13.7-17.5 L 410) HEMATOCRIT (BEAKER) (test code = 34.2 % 40.1-51.0 L 411) POCT-GLUCOSE [id number] 12:23:00 Test Item Value Reference Range Interpretation Comments POC-GLUCOSE METER 170 mg/dL 70-110 H TESTED AT [place] [address] (BEBANNER) (test code = [facility] 1538) [address] POCT-GLUCOSE [id number] 10:54:00 Test Item Value Reference Range Interpretation Comments POC-GLUCOSE METER 182 mg/dL 70-110 H TESTED AT [place] [address] ([facility]) (test code = [facility] 1538) [address] BASIC METABOLIC [id number] 09:55:00 Test Item Value Reference Range Interpretation Comments SODIUM (BEAKER) 150 meq/L 136-145 H (test code = 381) POTASSIUM (BEAKER) 3.7 meq/L 3.5-5.1 (test code = 379) CHLORIDE (BEAKER) 121 meq/L 98-107 H (test code = 382) CO2 (BEAKER) (test 14 meq/L 22-29 L code = 355) BLOOD UREA NITROGEN 18 mg/dL 7-21 (BEAKER) (test code = 354) CREATININE (BEAKER) 1.63 mg/dL 0.57-1.25 H (test code = 358) GLUCOSE RANDOM 203 mg/dL 70-105 H (BEAKER) (test code = 652) CALCIUM (BEAKER) 7.6 mg/dL 8.4-10.2 L (test code = 697) EGFR (BEAKER) (test 51 mL/min/1.73 ESTIMA GUNNAR GFR IS code = 1092) sq m NOT ACCURATE CREATININE CLEARANCE IN PREDICTING GLOMERULAR FILTRATION RATE . ESTIMATED GFR I S NOT APPLICABLE FOR DIALYSIS PATIEN TS. POCT-GLUCOSE [id number] 09:44:00 Test Item Value Reference Range Interpretation Comments POC-GLUCOSE METER 217 mg/dL 70-[address] [facility] 67 (BEAKER) (test code = [facility] 1538) [address] BLOOD GAS, [id number] 08:28:00 Test Item Value Reference Range Interpretation Comments PH ARTERIAL (BEAKER) (test code = 7.38 7.35-7.45 383) PCO2 ARTERIAL (BEAKER) (test code 27 mmHg 35-45 L = 384) PO2 ARTERIAL (BEAKER) (test code 82 mmHg 80-90 = 385) O2 SATURATION ARTERIAL (BEAKER) 96.1 % 96.0-97.0 (test code = 386) HCO3 ARTERIAL (BEAKER) (test code 15 mmol/L 21-29 L = 388) BASE EXCESS ARTERIAL (BEAKER) -8.4 mmol/L -2.0-3.0 L (test code = 387) PATIENT TEMPERATURE (BEAKER) 37.0 C (test code = 1818) FIO2 (BEAKER) (test code = 1819) 21.0 % POCT-GLUCOSE [id number] 08:24:00 Test Item Value Reference Range Interpretation Comments POC-GLUCOSE METER 207 mg/dL 70-110 H TESTED AT [place] [id number] (BEAKER) (test code = [facility] 1538) [address] POCT-GLUCOSE [id number] 06:39:00 Test Item Value Reference Range Interpretation Comments POC-GLUCOSE METER 203 mg/dL 70-110 H TESTED AT [place] [address] (BEAKER) (test code = [facility] 1538) [address] BASIC METABOLIC [id number] 06:37:00 Test Item Value Reference Range Interpretation Comments SODIUM (BEAKER) 153 meq/L 136-145 H (test code = 381) POTASSIUM (BEAKER) 3.5 meq/L 3.5-5.1 (test code = 379) CHLORIDE (BEAKER) 125 meq/L 98-107 H (test code = 382) CO2 (BEAKER) (test 14 meq/L 22-29 L code = 355) BLOOD UREA NITROGEN 19 mg/dL 7-21 (BEAKER) (test code = 354) CREATININE (BEAKER) 1.57 mg/dL 0.57-1.25 H (test code = 358) GLUCOSE RANDOM 194 mg/dL 70-105 H (BEAKER) (test code = 652) CALCIUM (BEAKER) 7.5 mg/dL 8.4-10.2 L (test code = 697) EGFR (BEAKER) (test 53 mL/min/1.73 ESTIMA GUNNAR GFR IS code = 1092) sq m NOT ACCURATE CREATININE CLEARANCE IN PREDICTING GLOMERULAR FILTRATION RATE . ESTIMATED GFR I S NOT APPLICABLE FOR DIALYSIS PATIEN TS. POCT-GLUCOSE [id number] 05:26:00 Test Item Value Reference Range Interpretation Comments POC-GLUCOSE METER 253 mg/dL 70-[address] [facility] 6720 (BEAKER) (test code = [place] 1538) [address] BASIC METABOLIC [id number] 05:07:00 Test Item Value Reference Range Interpretation Comments SODIUM (BEAKER) 150 meq/L 136-145 H (test code = 381) POTASSIUM (BEAKER) 3.7 meq/L 3.5-5.1 (test code = 379) CHLORIDE (BEAKER) 120 meq/L 98-107 H (test code = 382) CO2 (BEAKER) (test 11 meq/L 22-29 L code = 355) BLOOD UREA NITROGEN 22 mg/dL 7-21 H (BEAKER) (test code = 354) CREATININE (BEAKER) 1.82 mg/dL 0.57-1.25 H (test code = 358) GLUCOSE RANDOM 227 mg/dL 70-105 H (BEAKER) (test code = 652) CALCIUM (BEAKER) 8.0 mg/dL 8.4-10.2 L (test code = 697) EGFR (BEAKER) (test 45 mL/min/1.73 ESTIMA GUNNAR GFR IS code = 1092) sq m NOT ACCURATE CREATININE CLEARANCE IN PREDICTING GLOMERULAR FILTRATION RATE . ESTIMATED GFR I S NOT APPLICABLE FOR DIALYSIS PATIEN TS. [id number] 05:07:00 Test Item Value Reference Range Interpretation Comments MAGNESIUM (BEAKER) (test code = 2.0 mg/dL 1.6-2.6 627) [id number] 05:07:00 Test Item Value Reference Range Interpretation Comments PHOSPHORUS (BEAKER) (test code = 2.8 mg/dL 2.3-4.7 604) BLOOD GAS, [id number] 05:01:00 Test Item Value Reference Range Interpretation Comments PH ARTERIAL (BEAKER) (test code 7.34 7.35-7.45 L = 383) PCO2 ARTERIAL (BEAKER) (test 21 mmHg 35-45 L code = 384) PO2 ARTERIAL (BEAKER) (test code 148 mmHg 80-90 H = 385) O2 SATURATION ARTERIAL (BEAKER) 98.8 % 96.0-97.0 H (test code = 386) HCO3 ARTERIAL (BEAKER) (test 11 mmol/L 21-29 L code = 388) BASE EXCESS ARTERIAL (BEAKER) -12.4 mmol/L -2.0-3.0 L (test code = 387) PATIENT TEMPERATURE (BEAKER) 37.5 C (test code = 1818) FIO2 (BEAKER) (test code = 1819) 21.0 % LACTIC ACID, [id number] 04:58:00 Test Item Value Reference Range Interpretation Comments LACTATE BLOOD ARTERIAL (2) 0.6 mmol/L 0.5-2.2 (BEAKER) (test code = 2874) CBC W/PLT COUNT & AUTO [id number] 04:57:00 Test Item Value Reference Range Interpretation Comments WHITE BLOOD CELL COUNT (BEAKER) 18.5 K/ L 3.5-10.5 H (test code = 775) RED BLOOD CELL COUNT (BEAKER) 4.13 M/ L 4.63-6.08 L (test code = 761) HEMOGLOBIN (BEAKER) (test code = 12.4 GM/DL 13.7-17.5 L 410) HEMATOCRIT (BEAKER) (test code = 35.8 % 40.1-51.0 L 411) MEAN CORPUSCULAR VOLUME (BEAKER) 86.7 fL 79.0-92.2 (test code = 753) MEAN CORPUSCULAR HEMOGLOBIN 30.0 pg 25.7-32.2 (BEAKER) (test code = 751) MEAN CORPUSCULAR HEMOGLOBIN CONC 34.6 GM/DL 32.3-36.5 (BEAKER) (test code = 752) RED CELL DISTRIBUTION WIDTH 13.1 % 11.6-14.4 (BEAKER) (test code = 412) PLATELET COUNT (BEAKER) (test 209 K/CU MM 150-450 code = 756) MEAN PLATELET VOLUME (BEAKER) 9.7 fL 9.4-12.4 (test code = 754) NUCLEATED RED BLOOD CELLS 0 /100 WBC 0-0 (BEAKER) (test code = 413) NEUTROPHILS RELATIVE PERCENT 86 % (BEAKER) (test code = 429) LYMPHOCYTES RELATIVE PERCENT 7 % (BEAKER) (test code = 430) MONOCYTES RELATIVE PERCENT 6 % (BEAKER) (test code = 431) EOSINOPHILS RELATIVE PERCENT 0 % (BEAKER) (test code = 432) BASOPHILS RELATIVE PERCENT 0 % (BEAKER) (test code = 437) NEUTROPHILS ABSOLUTE COUNT 15.91 K/ L 1.78-5.38 H (BEAKER) (test code = 670) LYMPHOCYTES ABSOLUTE COUNT 1.28 K/ L 1.32-3.57 L (BEAKER) (test code = 414) MONOCYTES ABSOLUTE COUNT (BEAKER) 1.14 K/ L 0.30-0.82 H (test code = 415) EOSINOPHILS ABSOLUTE COUNT 0.00 K/ L 0.04-0.54 L (BEAKER) (test code = 416) BASOPHILS ABSOLUTE COUNT (BEAKER) 0.03 K/ L 0.01-0.08 (test code = 417) IMMATURE GRANULOCYTES-RELATIVE 1 % 0-1 PERCENT (BEAKER) (test code = 2801) POCT-GLUCOSE [id number] 04:20:00 Test Item Value Reference Range Interpretation Comments POC-GLUCOSE METER 220 mg/dL 70-[address] [facility] 6720 (BEBANNER) (test code = CAROLA Roberson [place] 1538) [address] POCT-GLUCOSE [id number] 03:44:00 Test Item Value Reference Range Interpretation Comments POC-GLUCOSE METER 243 mg/dL 70-[address] [facility] 6720 (BEAKER) (test code = CAROLA Roberson [place] 1538) [address] POCT-GLUCOSE [id number] 03:06:00 Test Item Value Reference Range Interpretation Comments POC-GLUCOSE METER 196 mg/dL 70-[address] [facility] 67 (BEAKER) (test code = CAROLA Roberson [facility] 1538) [address] TROPONIN [id number] 03:00:00 Test Item Value Reference Range Interpretation Comments TROPONIN I (BEAKER) (test code = 0.02 ng/mL 0.00-0.03 397) Troponin I (TnI) levels must be interpreted [...] acute neurological disease, and persistent tachyarrhythmia.BASIC METABOLIC [id number] 02:57:00 Test Item Value Reference Range Interpretation Comments SODIUM (BEAKER) 149 meq/L 136-145 H (test code = 381) POTASSIUM (BEAKER) 4.1 meq/L 3.5-5.1 (test code = 379) CHLORIDE (BEAKER) 120 meq/L 98-107 H (test code = 382) CO2 (BEAKER) (test 10 meq/L 22-29 LL code = 355) BLOOD UREA NITROGEN 22 mg/dL 7-21 H (BEAKER) (test code = 354) CREATININE (BEAKER) 1.71 mg/dL 0.57-1.25 H (test code = 358) GLUCOSE RANDOM 195 mg/dL 70-105 H (BEAKER) (test code = 652) CALCIUM (BEAKER) 7.7 mg/dL 8.4-10.2 L (test code = 697) EGFR (BEAKER) (test 48 mL/min/1.73 ESTIMA GUNNAR GFR IS code = 1092) sq m NOT ACCURATE CREATININE CLEARANCE IN PREDICTING GLOMERULAR FILTRATION RATE . ESTIMATED GFR I S NOT APPLICABLE FOR DIALYSIS PATIEN TS. POCT-GLUCOSE [id number] 01:21:00 Test Item Value Reference Range Interpretation Comments POC-GLUCOSE METER 195 mg/dL 70-[address] [facility] 6720 (BEAKER) (test code = CAROLA Roberson [facility] 1538) [id number] TROPONIN [id number] 00:47:00 Test Item Value Reference Range Interpretation Comments TROPONIN I (BEAKER) (test code = 0.03 ng/mL 0.00-0.03 397) Troponin I (TnI) levels must be interpreted [...] failure, acidosis, acute neurological disease, and persistent tachyarrhythmia.[id number] 00:44:00 Test Item Value Reference Range Interpretation Comments PHOSPHORUS (BEAKER) (test code = 1.4 mg/dL 2.3-4.7 LL 604) BLOOD GAS, [id number] 00:41:00 Test Item Value Reference Range Interpretation Comments PH ARTERIAL (BEAKER) (test code 7.35 7.35-7.45 = 383) PCO2 ARTERIAL (BEAKER) (test 20 mmHg 35-45 LL code = 384) PO2 ARTERIAL (BEAKER) (test code 143 mmHg 80-90 H = 385) O2 SATURATION ARTERIAL (BEAKER) 98.7 % 96.0-97.0 H (test code = 386) HCO3 ARTERIAL (BEAKER) (test 11 mmol/L 21-29 L code = 388) BASE EXCESS ARTERIAL (BEAKER) -12.3 mmol/L -2.0-3.0 L (test code = 387) PATIENT TEMPERATURE (BEAKER) 38.0 C (test code = 1818) FIO2 (BEAKER) (test code = 1819) 21.0 % BASIC METABOLIC [id number] 00:40:00 Test Item Value Reference Range Interpretation Comments SODIUM (BEAKER) 150 meq/L 136-145 H (test code = 381) POTASSIUM (BEAKER) 3.8 meq/L 3.5-5.1 (test code = 379) CHLORIDE (BEAKER) 120 meq/L 98-107 H (test code = 382) CO2 (BEAKER) (test 11 meq/L 22-29 L code = 355) BLOOD UREA NITROGEN 25 mg/dL 7-21 H (BEAKER) (test code = 354) CREATININE (BEAKER) 1.83 mg/dL 0.57-1.25 H (test code = 358) GLUCOSE RANDOM 220 mg/dL 70-105 H (BEAKER) (test code = 652) CALCIUM (BEAKER) 8.0 mg/dL 8.4-10.2 L (test code = 697) EGFR (MELITON) (test 44 mL/min/1.73 ESTIMA GUNNAR GFR IS code = 1092) sq m NOT ACCURATE CREATININE CLEARANCE IN PREDICTING GLOMERULAR FILTRATION RATE . ESTIMATED GFR I S NOT APPLICABLE FOR DIALYSIS PATIEN TS. [id number] 00:40:00 Test Item Value Reference Range Interpretation Comments MAGNESIUM (BEJUSTIN) (test code = 2.1 mg/dL 1.6-2.6 627) HEMOGLOBIN AND [id number] 00:21:00 Test Item Value Reference Range Interpretation Comments HEMOGLOBIN (BEAKER) (test code = 12.3 GM/DL 13.7-17.5 L 410) HEMATOCRIT (BEJUSTIN) (test code = 34.9 % 40.1-51.0 L 411) POCT-GLUCOSE [id number] 00:09:00 Test Item Value Reference Range Interpretation Comments POC-GLUCOSE METER 234 mg/dL 70-110 H TESTED AT [place] [address] ([facility]) (test code = [facility] 1538) [address] STREP PNEUMONIAE [id number] 00:07:00 Test Item Value Reference Range Interpretation Comments STREP PNEUMONIAE Presumptive negative Presumptive negative ANTIGEN (valuescopeBANNER) for pneumococcal for pneumococcal (test code = 1615) pneumonia - see pneumonia - see comment commen Presumptive negative for pneumococcal pneumonia, suggesting no current or recent pneumococcal infection. Infection due to S. pneumoniae cannot be ruled out since the antigen present in the sample may be below the detection limit of the test.LEGIONELLA ANTIGEN, [id number] 00:07:00 Test Item Value Reference Range Interpretation Comments L. PNEUMOPHILA Negative - see Negative fo r L. SEROGP 1 UR AG comment pneumophila ([facility]) (test code serogrou p 1 antigen, = 1156) suggesting no r ecent or current infe ction with this serog roup. Legionellosis c annot be ruled out si nce other serogroup s and species may cau se disease. POCT-GLUCOSE [id number] 23:15:00 Test Item Value Reference Range Interpretation Comments POC-GLUCOSE METER 247 mg/dL 70-110 H TESTED AT [place] [address] (valuescopeBANNER) (test code = [facility] 1538) [address] BASIC METABOLIC [id number] 23:09:00 Test Item Value Reference Range Interpretation Comments SODIUM (BEAKER) 150 meq/L 136-145 H (test code = 381) POTASSIUM (BEAKER) 4.1 meq/L 3.5-5.1 (test code = 379) CHLORIDE (BEAKER) 120 meq/L 98-107 H (test code = 382) CO2 (BEAKER) (test 8 meq/L 22-29 LL code = 355) BLOOD UREA NITROGEN 26 mg/dL 7-21 H (BEAKER) (test code = 354) CREATININE (BEAKER) 1.89 mg/dL 0.57-1.25 H (test code = 358) GLUCOSE RANDOM 283 mg/dL 70-105 H (BEAKER) (test code = 652) CALCIUM (BEAKER) 8.3 mg/dL 8.4-10.2 L (test code = 697) EGFR (BEAKER) (test 43 mL/min/1.73 ESTIMA GUNNAR GFR IS code = 1092) sq m NOT ACCURATE CREATININE CLEARANCE IN PREDICTING GLOMERULAR FILTRATION RATE . ESTIMATED GFR I S NOT APPLICABLE FOR DIALYSIS PATIEN TS. BLOOD GAS, [id number] 22:52:00 Test Item Value Reference Range Interpretation Comments PH ARTERIAL (BEAKER) (test code 7.34 7.35-7.45 L = 383) PCO2 ARTERIAL (BEAKER) (test 16 mmHg 35-45 LL code = 384) PO2 ARTERIAL (BEAKER) (test code 194 mmHg 80-90 H = 385) O2 SATURATION ARTERIAL (BEAKER) 99.3 % 96.0-97.0 H (test code = 386) HCO3 ARTERIAL (BEAKER) (test 9 mmol/L 21-29 LL code = 388) BASE EXCESS ARTERIAL (BEAKER) -14.1 mmol/L -2.0-3.0 L (test code = 387) PATIENT TEMPERATURE (BEAKER) 38.0 C (test code = 1818) FIO2 (BEAKER) (test code = 1819) 21.0 % POCT-GLUCOSE [id number] 22:25:00 Test Item Value Reference Range Interpretation Comments POC-GLUCOSE METER 270 mg/dL 70-[address] [facility] 6720 (BEAKER) (test code = CAROLA Roberson [facility] 1538) [address] POCT-GLUCOSE [id number] 21:28:00 Test Item Value Reference Range Interpretation Comments POC-GLUCOSE METER 312 mg/dL 70-[address] [facility] 6720 (BEBANNER) (test code = CAROLA Roberson [facility] 1538) [address] LACTIC ACID, [id number] 20:58:00 Test Item Value Reference Range Interpretation Comments LACTATE BLOOD ARTERIAL (2) 1.7 mmol/L 0.5-2.2 (BEAKER) (test code = 2874) BASIC METABOLIC [id number] 20:51:00 Test Item Value Reference Range Interpretation Comments SODIUM (BEAKER) 149 meq/L 136-145 H (test code = 381) POTASSIUM (BEAKER) 4.3 meq/L 3.5-5.1 (test code = 379) CHLORIDE (BEAKER) 119 meq/L 98-107 H (test code = 382) CO2 (BEAKER) (test 6 meq/L 22-29 LL code = 355) BLOOD UREA NITROGEN 29 mg/dL 7-21 H (BEAKER) (test code = 354) CREATININE (BEAKER) 2.01 mg/dL 0.57-1.25 H (test code = 358) GLUCOSE RANDOM 389 mg/dL 70-105 H (BEAKER) (test code = 652) CALCIUM (BEAKER) 8.2 mg/dL 8.4-10.2 L (test code = 697) EGFR (BEAKER) (test 40 mL/min/1.73 ESTIMA GUNNAR GFR IS code = 1092) sq m NOT ACCURATE CREATININE CLEARANCE IN PREDICTING GLOMERULAR FILTRATION RATE . ESTIMATED GFR I S NOT APPLICABLE FOR DIALYSIS PATIEN TS. POCT-GLUCOSE [id number] 20:37:00 Test Item Value Reference Range Interpretation Comments POC-GLUCOSE METER 334 mg/dL 70-[address] [facility] 67[address] ([place]) (test code = [place] [facility] 1538) [address] RAD, CHEST, 1 VIEW, NON [id number] 20:13:00Post-intubationReason for exam:- >r/o pnaShould this be performed at the bedside?->YesFINAL REPORT History: "Rule out pneumonia". Comparison: None. Findings: A sin gle view of the chest is submitted. The cardiomediastinal contours are unremarkable. There is no focal consolidation, pneumothorax, large pleural effusion or evidence of overt pulmonary edema. Thereis no acute bony abnormality. Impression: No acute abnormality. Signed: Jaqcues Vora Verified Date/Time: 10/14/2018 20:13:51 Reading Location: [address] Reading Room POCT-GLUCOSE [id number] 19:39:00 Test Item Value Reference Range Interpretation Comments POC-GLUCOSE METER 432 mg/dL 70-[address] [facility] [address] ([facility]) (test code = [place] 1538) [address] HEMOGLOBIN [id number] 19:16:00 Test Item Value Reference Range Interpretation Comments HEMOGLOBIN A1C (BEAKER) (test code = 10.2 % 4.3-6.1 H 368) [id number] 18:52:00 Test Item Value Reference Range Interpretation Comments PROCALCITONIN (BEAKER) (test code 5.14 ng/mL <0.05 H = 3036) SEPSIS RISK (ng/mL)Low: 0.05-0.50Intermediate: 0.51-2.00High: >=2.01CBC W/PLT COUNT & AUTO [id number] 18:37:00 Test Item Value Reference Range Interpretation Comments WHITE BLOOD CELL COUNT (BEAKER) 24.9 K/ L 3.5-10.5 H (test code = 775) RED BLOOD CELL COUNT (BEAKER) 4.23 M/ L 4.63-6.08 L (test code = 761) HEMOGLOBIN (BEAKER) (test code = 13.0 GM/DL 13.7-17.5 L 410) HEMATOCRIT (BEAKER) (test code = 38.1 % 40.1-51.0 L 411) MEAN CORPUSCULAR VOLUME (BEAKER) 90.1 fL 79.0-92.2 (test code = 753) MEAN CORPUSCULAR HEMOGLOBIN 30.7 pg 25.7-32.2 (BEAKER) (test code = 751) MEAN CORPUSCULAR HEMOGLOBIN CONC 34.1 GM/DL 32.3-36.5 (BEAKER) (test code = 752) RED CELL DISTRIBUTION WIDTH 12.6 % 11.6-14.4 (BEAKER) (test code = 412) PLATELET COUNT (BEAKER) (test 223 K/CU MM 150-450 code = 756) MEAN PLATELET VOLUME (BEAKER) 9.9 fL 9.4-12.4 (test code = 754) NUCLEATED RED BLOOD CELLS 0 /100 WBC 0-0 (BEAKER) (test code = 413) NEUTROPHILS RELATIVE PERCENT 92 % (BEAKER) (test code = 429) LYMPHOCYTES RELATIVE PERCENT 3 % (BEAKER) (test code = 430) MONOCYTES RELATIVE PERCENT 4 % (BEAKER) (test code = 431) EOSINOPHILS RELATIVE PERCENT 0 % (BEAKER) (test code = 432) BASOPHILS RELATIVE PERCENT 0 % (BEAKER) (test code = 437) NEUTROPHILS ABSOLUTE COUNT 22.92 K/ L 1.78-5.38 H (BEAKER) (test code = 670) LYMPHOCYTES ABSOLUTE COUNT 0.82 K/ L 1.32-3.57 L (BEAKER) (test code = 414) MONOCYTES ABSOLUTE COUNT (BEAKER) 0.96 K/ L 0.30-0.82 H (test code = 415) EOSINOPHILS ABSOLUTE COUNT 0.00 K/ L 0.04-0.54 L (BEAKER) (test code = 416) BASOPHILS ABSOLUTE COUNT (BEAKER) 0.06 K/ L 0.01-0.08 (test code = 417) IMMATURE GRANULOCYTES-RELATIVE 1 % 0-1 PERCENT (BEAKER) (test code = 2801) BASIC METABOLIC [id number] 18:29:00 Test Item Value Reference Range Interpretation Comments SODIUM (BEAKER) 145 meq/L 136-145 (test code = 381) POTASSIUM (BEAKER) 5.5 meq/L 3.5-5.1 H (test code = 379) CHLORIDE (BEAKER) 114 meq/L 98-107 H (test code = 382) CO2 (BEAKER) (test < meq/L 22-29 LL code = 355) BLOOD UREA NITROGEN 30 mg/dL 7-21 H (BEAKER) (test code = 354) CREATININE (BEAKER) 2.07 mg/dL 0.57-1.25 H (test code = 358) GLUCOSE RANDOM 664 mg/dL 70-105 HH (BEAKER) (test code = 652) CALCIUM (BEAKER) 7.8 mg/dL 8.4-10.2 L (test code = 697) EGFR (BEAKER) (test 38 mL/min/1.73 ESTIMA GUNNAR GFR IS code = 1092) sq m NOT ACCURATE CREATININE CLEARANCE IN PREDICTING GLOMERULAR FILTRATION RATE . ESTIMATED GFR I S NOT APPLICABLE FOR DIALYSIS PATIEN TS. HEPATIC FUNCTION [id number] 18:29:00 Test Item Value Reference Range Interpretation Comments TOTAL PROTEIN (BEAKER) (test code = 6.5 gm/dL 6.0-8.3 770) ALBUMIN (BEAKER) (test code = 1145) 3.8 g/dL 3.5-5.0 BILIRUBIN TOTAL (BEAKER) (test code 0.6 mg/dL 0.2-1.2 = 377) BILIRUBIN DIRECT (BEAKER) (test 0.3 mg/dL 0.1-0.5 code = 706) ALKALINE PHOSPHATASE (BEAKER) (test 76 U/L 40-150 code = 346) AST (SGOT) (BEAKER) (test code = 18 U/L 5-34 353) ALT (SGPT) (BEAKER) (test code = 23 U/L 6-55 347) LACTIC ACID, [id number] 18:24:00 Test Item Value Reference Range Interpretation Comments LACTATE BLOOD ARTERIAL (2) 3.0 mmol/L 0.5-2.2 H (BEAKER) (test code = 2874) BLOOD GAS, [id number] 17:52:00 Test Item Value Reference Range Interpretation Comments PH ARTERIAL (BEAKER) (test code 7.13 7.35-7.45 LL = 383) PCO2 ARTERIAL (BEAKER) (test 8 mmHg 35-45 LL code = 384) PO2 ARTERIAL (BEAKER) (test code 145 mmHg 80-90 H = 385) O2 SATURATION ARTERIAL (BEAKER) 98.3 % 96.0-97.0 H (test code = 386) HCO3 ARTERIAL (BEAKER) (test 3 mmol/L 21-29 LL code = 388) BASE EXCESS ARTERIAL (BEAKER) -24.1 mmol/L -2.0-3.0 L (test code = 387) PATIENT TEMPERATURE (BEAKER) 36.5 C (test code = 1818) FIO2 (BEAKER) (test code = 1819) 21.0 % CBC W/PLT COUNT & AUTO [id number] 17:50:00 Test Item Value Reference Range Interpretation Comments WHITE BLOOD CELL COUNT (BEAKER) 31.9 K/ L 3.5-10.5 H (test code = 775) RED BLOOD CELL COUNT (BEAKER) 4.72 M/ L 4.63-6.08 (test code = 761) HEMOGLOBIN (BEAKER) (test code = 14.3 GM/DL 13.7-17.5 410) HEMATOCRIT (BEAKER) (test code = 42.7 % 40.1-51.0 411) MEAN CORPUSCULAR VOLUME (BEAKER) 90.5 fL 79.0-92.2 (test code = 753) MEAN CORPUSCULAR HEMOGLOBIN 30.3 pg 25.7-32.2 (BEAKER) (test code = 751) MEAN CORPUSCULAR HEMOGLOBIN CONC 33.5 GM/DL 32.3-36.5 (BEAKER) (test code = 752) RED CELL DISTRIBUTION WIDTH 12.7 % 11.6-14.4 (BEAKER) (test code = 412) PLATELET COUNT (BEAKER) (test 288 K/CU MM 150-450 code = 756) MEAN PLATELET VOLUME (BEAKER) 10.8 fL 9.4-12.4 (test code = 754) NUCLEATED RED BLOOD CELLS 0 /100 WBC 0-0 (BEAKER) (test code = 413) (CELLAVISION MANUAL DIFF)[id number] 17:50:00 Test Item Value Reference Range Interpretation Comments NEUTROPHILS - REL 89 % (CELLAVISION)(BEAKER) (test code = 2816) LYMPHOCYTES - REL 2 % (CELLAVISION)(BEAKER) (test code = 2817) MONOCYTES - REL 2 % (CELLAVISION)(BEAKER) (test code = 2818) BANDS - REL (CELLAVISION)(BEAKER) 6 % 0-10 (test code = 2826) NEUTROPHILS - ABS 28.39 K/ul 1.78-5.38 H (CELLAVISION)(BEAKER) (test code = 2830) LYMPHOCYTES - ABS 0.64 K/ul 1.32-3.57 L (CELLAVISION)(BEAKER) (test code = 2831) MONOCYTES - ABS 0.64 K/uL 0.30-0.82 (CELLAVISION)(BEAKER) (test code = 2832) BANDS - ABS (CELLAVISION)(BEAKER) 1.91 K/uL 0.00-0.80 H (test code = 2840) TOTAL COUNTED (BEAKER) (test code 100 = 1351) PLT MORPHOLOGY (BEAKER) (test Normal code = 486) VACUOLATED NEUTROPHILS (BEAKER) Present (test code = 483) ANISOCYTOSIS (BEAKER) (test code 2+ moderate = 961) MICROCYTES (BEAKER) (test code = 2+ moderate 965) POIKILOCYTES (BEAKER) (test code 1+ few = 966) JOAO CELLS (BEAKER) (test code = 1+ few 474) ARTIFACT (CELLAVISION)(BEAKER) Present (test code = 3432) PLATELET CONCENTRATION Adequate (CELLAVISION)(BEAKER) (test code = 3438) Received comment: User comments: Slide comments:POCT-GLUCOSE [id number] 17:49:00 Test Item Value Reference Range Interpretation Comments POC-GLUCOSE METER > mg/dL 70-110 HH OUTSIDE ME ASURING (BEAKER) (test code RANGETES GUNNAR AT [facility] 6720 = 1538) [facility] [address] KETONE, [id number] 17:13:00 Test Item Value Reference Range Interpretation Comments KETONES, BLOOD (BEAKER) (test code 5.4 mmol/L <0.4 H = 1103) TSH/FREE T4 IF [id number] 17:10:00 Test Item Value Reference Range Interpretation Comments THYROID STIMULATING HORMONE 0.64 uIU/mL 0.35-4.94 (BEAKER) (test code = 772) BASIC METABOLIC [id number] 16:57:00 Test Item Value Reference Range Interpretation Comments SODIUM (BEAKER) 142 meq/L 136-145 (test code = 381) POTASSIUM (BEAKER) 6.9 meq/L 3.5-5.1 HH Specimen slightly (test code = 379) hemolyzed CHLORIDE (BEAKER) 108 meq/L 98-107 H (test code = 382) CO2 (BEAKER) (test 6 meq/L 22-29 LL code = 355) BLOOD UREA NITROGEN 30 mg/dL 7-21 H (BEAKER) (test code = 354) CREATININE (BEAKER) 2.22 mg/dL 0.57-1.25 H Specimen slightly (test code = 358) hemolyzed GLUCOSE RANDOM 768 mg/dL 70-105 HH (BEAKER) (test code = 652) CALCIUM (BEAKER) 8.9 mg/dL 8.4-10.2 (test code = 697) EGFR (BEAKER) (test 35 mL/min/1.73 ESTIMA GUNNAR GFR IS code = 1092) sq m NOT ACCURATE CREATININE CLEARANCE IN PREDICTING GLOMERULAR FILTRATION RATE . ESTIMATED GFR I S NOT APPLICABLE FOR DIALYSIS PATIEN TS. TROPONIN [id number] 16:56:00 Test Item Value Reference Range Interpretation Comments TROPONIN I (BEAKER) (test code = [...] failure, acidosis, acute neurological disease, and persistent tachyarrhythmia.[id number] 16:50:00 Test Item Value Reference Range Interpretation Comments MAGNESIUM (BEAKER) 2.4 mg/dL 1.6-2.6 Specimen slightly (test code = 627) hemolyzed [id number] 16:50:00 Test Item Value Reference Range Interpretation Comments PHOSPHORUS (BEAKER) 5.6 mg/dL 2.3-4.7 H Specimen slightly (test code = 604) hemolyzed [id number] 16:50:00 Test Item Value Reference Range Interpretation Comments AMYLASE (BEAKER) (test 47 U/L 25-125 Speci men slightly code = 349) hemolyzed [id number] 16:50:00 Test Item Value Reference Range Interpretation Comments LIPASE (BEAKER) (test code = 749) 199 U/L 8-78 H PROTHROMBIN [id number] 16:47:00 Test Item Value Reference Range Interpretation Comments PROTIME (BEAKER) (test code = 15.5 seconds 11.9-14.2 H 759) INR (BEAKER) (test code = 370) 1.3 <=5.9 Effective 09/19/2018: PT Reference Range ChangeNew: 11.9-14.2 Previous: 11.7- 14.7RECOMMENDED COUMADIN/WARFARIN INR THERAPY RANGESSTANDARD DOSE: 2.0-3.0 Includes: PROPHYLAXIS for venous thrombosis, systemic embolization; TREATMENT for venous thrombosis and/or pulmonary embolus.HIGH RISK: Target INR is2.5-3.5 for patients wiht mechanical heart valves.[id number] 16:47:00 Test Item Value Reference Range Interpretation Comments PARTIAL THROMBOPLASTIN TIME 23.5 seconds 22.5-36.0 (BEAKER) (test code = 760) [id number] 16:47:00 Test Item Value Reference Range Interpretation Comments FIBRINOGEN LEVEL (BEAKER) (test 284 mg/dl 225-434 code = 658) LACTIC ACID, [id number] 16:44:00 Test Item Value Reference Range Interpretation Comments LACTATE BLOOD VENOUS 4.2 mmol/L 0.5-2.2 H Specime n slightly (2) (BEAKER) (test hemolyzed code = 0148) HEMOGLOBIN AND [id number] 16:34:00 Test Item Value Reference Range Interpretation Comments HEMOGLOBIN (BEAKER) (test code = 14.5 GM/DL 13.7-17.5 410) HEMATOCRIT (BEAKER) (test code = 42.9 % 40.1-51.0 411) POTASSIUM-STAT [id number] 16:21:00 Test Item Value Reference Range Interpretation Comments POTASSIUM (BEAKER) (test code = 7.0 meq/L 3.6-5.5 HH 379) GLUCOSE-STAT [id number] 16:21:00 Test Item Value Reference Range Interpretation Comments GLUCOSE RANDOM (BEAKER) (test code 650 mg/dL 70-110 HH = 652) BLOOD GAS, [id number] 16:21:00 Test Item Value Reference Range Interpretation Comments PH VENOUS (BEAKER) (test code = 7.06 7.32-7.42 LL 701) PCO2 VENOUS (BEAKER) (test code 17 mmHg 41-51 LL = 755) PO2 VENOUS (BEAKER) (test code = 56 mmHg 25-40 H 702) O2 SATURATION VENOUS (BEAKER) 78.1 % 40.0-70.0 H (test code = 703) HCO3 VENOUS (BEAKER) (test code 5 mmol/L 21-29 LL = 705) BASE EXCESS VENOUS (BEAKER) -23.9 mmol/L -2.0-3.0 L (test code = 704) PATIENT TEMPERATURE (BEAKER) 36.4 C (test code = 1818) FIO2 (BEAKER) (test code = 1819) 21.0 % SODIUM NA-STAT [id number] 16:15:00 Test Item Value Reference Range Interpretation Comments SODIUM (BEAKER) (test code = 381) 142 meq/L 135-148 HGB/HCT (H&H) - STAT [id number] 16:15:00 Test Item Value Reference Range Interpretation Comments HEMOGLOBIN (BEAKER) (test code = 14.8 g/dL 13.0-16.8 410) HEMATOCRIT (BEAKER) (test code = 44.0 % 40.0-50.0 411) POCT-GLUCOSE [id number] 15:42:00 Test Item Value Reference Range Interpretation Comments POC-GLUCOSE METER > mg/dL 70-110 HH OUTSIDE ME ASURING (BEAKER) (test code RANGENot ified YVONNE MD/TESTED = 1538) AT [facility] [address] [facility] [phone]
== END 2020-01-30 20:27 | disposition home or self-care (01) ==
LOC: ER 18:41
PROC: 2W3JX1Z Immobilization of Right Finger using Splint (ICD-10-PCS; principal; 2020-01-30)
DX: S62.324A Displaced fracture of shaft of fourth metacarpal bone, right hand, initial encounter for closed fracture (principal); X58.XXXA Exposure to other specified factors, initial encounter; Y93.89 Activity, other specified; Y92.89 Other specified places as the place of occurrence of the external cause; Y99.8 Other external cause status; E11.9 Type 2 diabetes mellitus without complications; Z79.4 Long term (current) use of insulin; F17.220 Nicotine dependence, chewing tobacco, uncomplicated
CPT/HCPCS: 99284

== ENCOUNTER 2020-02-07 03:57 | Emergency (ER) | payer SELFPAY ==
--- OUTSIDE RECORDS SUMMARY | 2020-02-07 03:59 | XMS REPORT | Clinical Summary ---
:1990 Author Organization [facility] Address [address] [place] [address] Care Team Providers Name Role Phone Pcp, [...] Assigned at Date Recorded Not on file Last Filed Vital Signs Not on file Plan of Treatment Not on file Results Not on fileafter 02/06/2019 Advance Directives For more information, please contact: [phone] Code Status Date Activated Date Inactivated Comments Full Code 10/14/2018 3:52 PM 10/18/2018 2:17 PM This code status was determined by: Patient
--- OUTSIDE RECORDS SUMMARY | 2020-02-07 03:59 | XMS REPORT | Continuity of Care Document ---
:1990 Author Organization [facility] [employer] [place] Care Team Providers Name Role Phone [facility] [employer] [place] Unavailable Un available Problems Problem Status Onset Classification Date Comments Sourc e Date Reported Strain of 11/26/2016 [place] muscle, 7 fascia and tendon at neck level, initial encounter ACCIDENT Active [facility] 7 [place] Diabetes Resolved Problem 11/26/[place] mellitus (disorder) Medications Medication Details Route Status Patient Ordering Order Source Instructions Provider Date Cyclobenzaprine 10 mg, PO, Active hydrochloride 10 TID, PRN 017 [place] Oral Tablet Muscle [Flexeril] Spasm, X 10 day, # 30 tab, 0 Refill(s) Motrin 800 mg oral 800 mg = 1 Active tablet tab, PO, 017 [place] TID, X 7 day, # 21 tab, [...] Source Temperature Oral (F) 98.2 F 11/24/2016 [facility] Heart Rate 88 11/24/2016 [facility] Respitory Rate 16 11/24/2016 [facility] Systolic (mm Hg) 117 11/24/2016 [facility] Diastolic (mm Hg) 75 11/24/2016 Steffi hidalgo BMI Calculated 26.6 11/24/2016 [facility] Height 177.8 cm 11/24/2016 [facility] Weight 84.091 11/24/2016 [facility] Respitory Rate 18 11/24/2016 [facility] Heart Rate 91 11/24/2016 [facility] Systolic (mm Hg) 118 11/24/2016 [facility] Diastolic (mm Hg) 76 11/24/2016 [place] Temperature Oral (F) 98.1 F 11/24/2016 Gadiel thomas Encounters Location Location Encounter Encounter Reason Attending ADM DC Stat us Source Details Type Number For Provider Date Date [facility] [id number] [place] 11/24 11/24 [place] /2016 [facility] Procedures Procedure Code Date Perfomer Comments Source Removal of [id number] [facility] silastic tubes from ear Assessment and Plan No Data Provided for This Section Plan of Care No Data Provided for This Section Social History Social History Date Source Social History TypeResponse 11/24/2016 [facility] Smoking Status Never smoker; Exposure to Tobacco Smoke None; Cigarette Smoking Last 365 Days No; Reg Smoking Cessation Counseling No Family History No Data Provided for This Section Advance Directives No Data Provided for This Section Functional Status No Data Provided for This Section
--- OUTSIDE RECORDS SUMMARY | 2020-02-07 04:01 | XMS REPORT | Continuity of Care Document ---
:1990 Author Organization [facility] t Address [address] [place] [address] Care Team Providers Name Role Phone Pcp Primary Care Physician Unavailable Butch GARZA, L Attending Clinician Chaseb, Polly Main Attending Clinician Unavailable Coby MERCADO, S Attending Clinician INNA MARTINEZ Attending Clinician Unavailable Miriam Almonte Attending Clinician INNA MARTINEZ Admitting Clinician Unavailable Problems Condition Condition Condition Status Onset Resolution Last Treating Co mments Source Name Details Category Date Date Treatment Clinician Date Diabetic Diabetic Disease [facility] Rhianna kes - is without is without 00:00: Mo dical coma coma [facility] GI bleed GI bleed Disease [facility] [place] Acidosis Acidosis Disease [facility] [place] ACCIDENT Diagnosis Active 2017-03-28 M emoria 11-22 [...] neck encounter level, initial encounter 11/23/2016 11/26/2016 [facility] Allergies, Adverse Reactions, Alerts This patient has no known allergies or adverse reactions. Social History Social Habit Start Date Stop Date Quantity Comments Source Sex Assigned At [facility] Smoking Status Start Date Stop Date Source Social History [facility] Medications Ordered Filled Start Stop Current Ordering Indication Dosage Frequency Signature Comments Components Source Medication Medication Date Date Medication? Clinician (SIG) Name Name insulin Yes 30U Q.5D Inject [facility] glargine 10-18 30-35 [facility] 12:16: Units Medical 100 unit/mL 59 subcutaneo Ce nter injection usly 2 (two) times daily Use as directed . Cyclobenzap Yes 10 mg, PO, Memoria rine 11-24 TID, PRN l hydrochlori 02:13: Muscle Herm phyllis de 10 MG 00 Spasm, X Oral Tablet 10 day, # [Flexeril] 30 tab, 0 Refill(s) Motrin 800 Yes 800 mg = 1 M emoria mg oral 11-24 tab, PO, l tablet 02:13: TID, X 7 West 00 day, # 21 tab, 0 Refill(s) Vital Signs Vital Name Observation Time Observation Value Comments Source Temperature Oral (F) 2016-11-24 03:[facility] 2016-11-24 03:00:00 [facility] Kvng Respitory Rate 2016-11-24 03:00:00 Nik al Kvng Systolic (mm Hg) 2016-11-24 03:00:00 Praneeth rial Kvng Diastolic (mm Hg) 2016-11-24 03:00:00 Mem orial Kvng BMI Calculated 2016-11-24 [facility] Height 2016-11-24 01:48:00 177.8 cm [facility] Weight 2016-11-24 01:48:00 [facility] Respitory Rate 2016-11-24 01:48:[facility] Rate 2016-11-24 01:48:00 [facility] Systolic (mm Hg) 2016-11-24 01:48:00 Praneeth rial Kvng Diastolic (mm Hg) 2016-11-24 01:48:00 Mem orial West Temperature Oral (F) 2016-11-24 01:48:00 98.1 F [facility] Procedures Procedure Date / Time Performed Performing Clinician [facility] e Removal of silastic tubes Nik Spicer from ear Encounters Start End Encounter Admission Attending Care Care Encounter Source Date/Time Date/Time Type Type Clinicians Facility Department ID 2020-02-05 2020-02-05 Telephone Butch [facility] [id number] 00:00:00 00:00:00 [facility] [id number] Surgical [id number] Specialti [id number] [address] [place] 2020-02-04 2020-02-04 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 [id number] 20:46:00 22:02:00 Abdiwahab 00 Pineda Results Test Description Test Time Test Comments Results Result Comments Source BLOOD CULTURE 2018-10-20 02:01:00 Test Item Value Reference Range Interpretation Comme nts CULTURE (BEAKER) (test code = 1095) No growth in 5 days BLOOD [id number] 02:01:00 Test Item Value Reference Range Interpretation Comments CULTURE (BEAKER) (test No growth in 5 days code = 1095) MRSA [id number] 09:59:00 Test Item Value Reference Range Interpretation Comments CULTURE (BEAKER) (test code No MRSA isolated = 1095) TISSUE [id number] 15:35:00Surgical Pathology Report Case: [id number] Authorizing Provider: Won Randall MD Collected: 10/17/2018 0823 Ordering Location: [address] Received: 10/17/2018 1401 Service Pathologist: Natividad Shrestha MD Specimens: A) - Duodenum, random bx B) -Biopsy, Gastric, body and antrum A. DUODENUM , RANDOM BIOPSY- NO DIAGNOSTIC ALTERATIONB. STOMACH, BODY AND ANTRUM, BIOPSY- CHRONIC INACTIVE GASTRITIS, MILD- NO INTESTINAL METAPLASIA, DYSPLASIA OR INVASIVE CARCINOMA IDENTIIFIED- NO HELICOBACTER PYLORI LIKE ORGANISMS IDENTIFIED ON WARTHIN STARRY STAIN Signing Pathologist Direct Phone Line: [phone] signed by Natividad Shrestha MD on 10/18/2018 at 3:35 [id number] x 2, [id number] and postop diagnosis: intractable vomiting, presence of [...] evaluated Immunohistochemistry technical testing was performed at [facility], Pathology Laboratory where it was developed [...] to perform high complexity clinical laboratory testing.POCT-GLUCOSE [id number] 10:09:00 Test Item Value Reference Range Interpretation Comments POC-GLUCOSE METER 118 mg/dL 70-110 H TESTED AT [facility] 6720 (BEAKER) (test code = CAROLA Roberson [place] 1538) [address] [id number] 06:56:00 Test Item Value Reference Range Interpretation Comments MAGNESIUM (BEAKER) (test code = 2.0 mg/dL 1.6-2.6 627) BASIC METABOLIC [id number] 06:40:00 Test Item Value Reference Range Interpretation [...] NOT APPLICABLE FOR DIALYSIS PATIEN TS. POCT-GLUCOSE [id number] 20:40:00 Test Item Value Reference Range Interpretation Comments POC-GLUCOSE METER 172 mg/dL 70-110 H TESTED AT [facility] 6720 (BEAKER) (test code = CAROLA Roberson [facility] 1538) [address] POCT-GLUCOSE [id number] 18:25:00 Test Item Value Reference Range Interpretation Comments POC-GLUCOSE METER 200 mg/dL 70-110 H TESTED AT [facility] 6720 (BEAKER) (test code = CARLOSYOSEF Karol [facility] 1538) [address] POCT-GLUCOSE [id number] 15:26:00 Test Item Value Reference Range Interpretation Comments POC-GLUCOSE METER 232 mg/dL 70-110 H TESTED AT [facility] 6720 (BEAKER) (test code = CAROLA Roberson [facility] 1538) 31594 POCT-GLUCOSE [id number] 13:00:00 Test Item Value Reference Range Interpretation Comments POC-GLUCOSE METER 228 mg/dL 70-110 H TESTED AT [place] [address] ([facility]) (test code = CAROLA Roberson [facility] 1538) [address] POCT-GLUCOSE [id number] 10:43:00 Test Item Value Reference Range Interpretation Comments POC-GLUCOSE METER 207 mg/dL 70-110 H TESTED AT [place] [address] ([facility]) (test code = CARLOSFL Karol [facility] 1538) [address] POCT-GLUCOSE [id number] 09:16:00 Test Item Value Reference Range Interpretation Comments POC-GLUCOSE METER 269 mg/dL 70-110 H TESTED AT [place] [address] ([facility]) (test code = [facility] Karol [facility] 1538) [address] POCT-GLUCOSE [id number] 07:26:00 Test Item Value Reference Range Interpretation Comments POC-GLUCOSE METER 239 mg/dL 70-110 H TESTED AT [place] [address] ([facility]) (test code = [facility] Karol [facility] 1538) [address] BASIC METABOLIC [id number] 06:42:00 Test Item Value Reference Range Interpretation [...] S NOT APPLICABLE FOR DIALYSIS PATIEN TS. [id number] 06:42:00 Test Item Value Reference Range Interpretation Comments PHOSPHORUS (BEAKER) (test code = 2.0 mg/dL 2.3-4.7 L 604) [id number] 06:42:00 Test Item Value Reference Range Interpretation Comments MAGNESIUM (BEAKER) (test code = 2.3 mg/dL 1.6-2.6 627) CBC W/PLT COUNT & AUTO [id number] 06:34:00 Test Item Value Reference Range Interpretation [...] 417) IMMATURE GRANULOCYTES-RELATIVE 0 % 0-1 PERCENT ([facility]) (test code = 2801) POCT-GLUCOSE [id number] 22:23:00 Test Item Value Reference Range Interpretation Comments POC-GLUCOSE METER 237 mg/dL 70-110 H TESTED AT [place] [address] ([facility]) (test code = CAROLA Roberson [place] 1538) [address] POCT-GLUCOSE [id number] 20:39:00 Test Item Value Reference Range Interpretation Comments POC-GLUCOSE METER 298 mg/dL 70-110 H TESTED AT [place] [address] ([facility]) (test code = CAROLA Roberson [place] 1538) [address] POCT-GLUCOSE [id number] 17:49:00 Test Item Value Reference Range Interpretation Comments POC-GLUCOSE METER 255 mg/dL 70-110 H TESTED AT [place] [address] ([facility]) (test code = CAROLA Roberson [place] 1538) [address] POCT-GLUCOSE [id number] 13:35:00 Test Item Value Reference Range Interpretation Comments POC-GLUCOSE METER 190 mg/dL 70-110 H TESTED AT [place] [address] ([facility]) (test code = CAROLA Roberson [place] 1538) 269[address] POCT-GLUCOSE [id number] 12:31:00 Test Item Value Reference Range Interpretation Comments POC-GLUCOSE METER 204 mg/dL 70-110 H TESTED AT [place] [address] ([facility]) (test code = CAROLA Roberson [place] 1538) [address] POCT-GLUCOSE [id number] 11:38:00 Test Item Value Reference Range Interpretation Comments POC-GLUCOSE METER 165 mg/dL 70-110 H TESTED AT [place] [address] ([facility]) (test code = CRAOLA Roberson [place] 1538) [address] POCT-GLUCOSE [id number] 10:35:00 Test Item Value Reference Range Interpretation Comments POC-GLUCOSE METER 231 mg/dL 70-110 H TESTED AT [facility] 6720 (BEAKER) (test code = CAROLA Roberson [place] 1538) [address] BASIC METABOLIC [id number] 09:52:00 Test Item Value Reference Range Interpretation Comments SODIUM (BEAKER) 148 meq/L 136-145 H (test code = 381) POTASSIUM (BEAKER) 3.4 [...] S NOT APPLICABLE FOR DIALYSIS PATIEN TS. [id number] 09:52:00 Test Item Value Reference Range Interpretation Comments PHOSPHORUS (BEAKER) (test code = 2.0 mg/dL 2.3-4.7 L 604) [id number] 09:52:00 Test Item Value Reference Range Interpretation Comments MAGNESIUM (BEAKER) (test code = 2.2 mg/dL 1.6-2.6 627) POCT-GLUCOSE [id number] 09:28:00 Test Item Value Reference Range Interpretation Comments POC-GLUCOSE METER 213 mg/dL 70-110 H TESTED AT [facility] 6720 (BEAKER) (test code = CAROLA Roberson [facility] 1538) [address] RAD, ABDOMEN/KUB, 1 VIEW [id number] 09:12:00Reason for exam:->recurrent vomitingShould this be performed [...] MDReport Verified Date/Time: 10/16/2018 09:12:50 Reading Location: [facility] Radiology Reading Room POCT-GLUCOSE [id number] 08:41:00 Test Item Value Reference Range Interpretation Comments POC-GLUCOSE METER 206 mg/dL 70-110 H TESTED AT [facility] 6720 (BEAKER) (test code = CAROLA Roberson [facility] 1538) [address] POCT-GLUCOSE [id number] 07:46:00 Test Item Value Reference Range Interpretation Comments POC-GLUCOSE METER 203 mg/dL 70-110 H TESTED AT [facility] 6720 (BEAKER) (test code = CAROLA Roberson [facility] 1538) [address] [id number] 07:14:00 Test Item Value Reference Range Interpretation Comments MAGNESIUM (BEAKER) 2.2 mg/dL 1.6-2.6 Specimen slightly (test code = 627) hemolyzed [id number] 07:14:00 Test Item Value Reference Range Interpretation Comments PHOSPHORUS (BEAKER) 2.4 mg/dL 2.3-4.7 Specimen slightly (test code = 604) hemolyzed BASIC METABOLIC [id number] 07:14:00 Test Item Value Reference Range Interpretation [...] APPLICABLE FOR DIALYSIS PATIEN TS. LACTIC ACID, [id number] 06:58:00 Test Item Value Reference Range Interpretation Comments LACTATE BLOOD ARTERIAL (2) 1.0 mmol/L 0.5-2.2 (BEAKER) (test code = 2874) CBC W/PLT COUNT & AUTO [id number] 06:47:00 Test Item Value Reference Range Interpretation [...] 417) IMMATURE GRANULOCYTES-RELATIVE 0 % 0-1 PERCENT (BEAKER) (test code = 2801) HEMOGLOBIN AND [id number] 06:42:00 Test Item Value Reference Range Interpretation Comments HEMOGLOBIN (BEAKER) (test code = 11.2 GM/DL 13.7-17.5 L 410) HEMATOCRIT (BEAKER) (test code = 33.1 % 40.1-51.0 L 411) POCT-GLUCOSE [id number] 06:22:00 Test Item Value Reference Range Interpretation Comments POC-GLUCOSE METER 193 mg/dL 70-110 H TESTED AT [facility] 6720 ([facility]) (test code = CAROLA Roberson [facility] 1538) [address]862 POCT-GLUCOSE [id number] 05:31:00 Test Item Value Reference Range Interpretation Comments POC-GLUCOSE METER 185 mg/dL 70-110 H TESTED AT [place] [address] ([facility]) (test code = CAROLA Roberson [facility] 1538) 94132 POCT-GLUCOSE [id number] 04:02:00 Test Item Value Reference Range Interpretation Comments POC-GLUCOSE METER 191 mg/dL 70-110 H TESTED AT [facility] 6720 ([facility]) (test code = CAROLA Roberson [place] 1538) [address] POCT-GLUCOSE [id number] 03:08:00 Test Item Value Reference Range Interpretation Comments POC-GLUCOSE METER 170 mg/dL 70-110 H TESTED AT [facility] 6720 ([facility]) (test code = CAROLA Roberson [place] 1538) [address]65 POCT-GLUCOSE [id number] 02:24:00 Test Item Value Reference Range Interpretation Comments POC-GLUCOSE METER 155 mg/dL 70-110 H TESTED AT [facility] 6720 (BEAKER) (test code = [place] 1538) [address] POCT-GLUCOSE [id number] 01:43:00 Test Item Value Reference Range Interpretation Comments POC-GLUCOSE METER 158 mg/dL 70-110 H TESTED AT [facility] 6720 (BEAKER) (test code = [place] 1538) [address] BASIC METABOLIC [id number] 00:59:00 Test Item Value Reference Range Interpretation [...] S NOT APPLICABLE FOR DIALYSIS PATIEN TS. [id number] 00:58:00 Test Item Value Reference Range Interpretation Comments MAGNESIUM (BEAKER) 2.4 mg/dL 1.6-2.6 Specimen slightly (test code = 627) hemolyzed [id number] 00:58:00 Test Item Value Reference Range Interpretation Comments PHOSPHORUS (BEAKER) 1.6 mg/dL 2.3-4.7 L Specimen slightly (test code = 604) hemolyzed HEMOGLOBIN AND [id number] 00:31:00 Test Item Value Reference Range Interpretation Comments HEMOGLOBIN (BEAKER) (test code = 11.9 GM/DL 13.7-17.5 L 410) HEMATOCRIT (BEAKER) (test code = 34.5 % 40.1-51.0 L 411) POCT-GLUCOSE [id number] 00:30:00 Test Item Value Reference Range Interpretation Comments POC-GLUCOSE METER 188 mg/dL 70-110 H TESTED AT [place] [address] ([facility]) (test code = CAROLA Roberson [facility] 1538) [address] POCT-GLUCOSE [id number] 23:07:00 Test Item Value Reference Range Interpretation Comments POC-GLUCOSE METER 191 mg/dL 70-110 H TESTED AT [place] [address] ([facility]) (test code = CAROLA Roberson [facility] 1538) 84258 POCT-GLUCOSE [id number] 22:03:00 Test Item Value Reference Range Interpretation Comments POC-GLUCOSE METER 205 mg/dL 70-110 H TESTED AT [place] [address] ([facility]) (test code = [facility] Karol [facility] 1538) [address] BASIC METABOLIC [id number] 21:06:00 Test Item Value Reference Range Interpretation [...] APPLICABLE FOR DIALYSIS PATIEN TS. VANCOMYCIN LEVEL, [id number] 21:04:00 Test Item Value Reference Range Interpretation Comments VANCOMYCIN TROUGH (BEAKER) (test 5.8 ug/mL 10.0-20.0 L code = 522) If level is >20, hold scheduled vancomycin dose and contact PharmD/MD. Thank youPOCT-GLUCOSE [id number] 21:00:00 Test Item Value Reference Range Interpretation Comments POC-GLUCOSE METER 202 mg/dL 70-110 H TESTED AT [place] [address] (BEAKER) (test code = [facility] 1538) 11299 POCT-GLUCOSE [id number] 20:08:00 Test Item Value Reference Range Interpretation Comments POC-GLUCOSE METER 180 mg/dL 70-110 H TESTED AT [place] [address] ([facility]) (test code = [facility] 1538) 8[address]28 POCT-GLUCOSE [id number] 18:39:00 Test Item Value Reference Range Interpretation Comments POC-GLUCOSE METER 175 mg/dL 70-110 H TESTED AT [place] [address] ([facility]) (test code = [facility] 1538) 36874 POCT-GLUCOSE [id number] 17:22:00 Test Item Value Reference Range Interpretation Comments POC-GLUCOSE METER 209 mg/dL 70-110 H TESTED AT [place] [address] ([facility]) (test code = [facility] 1538) 93192 URINALYSIS W/ REFLEX URINE [id number] 16:58:00 Test Item Value Reference Range Interpretation [...] = Rare 1574) SOURCE(BEAKER) (test code = 3646) HEMOGLOBIN AND [id number] 16:36:00 Test Item Value Reference Range Interpretation Comments HEMOGLOBIN (BEAKER) (test code = 13.0 GM/DL 13.7-17.5 L 410) HEMATOCRIT (BEAKER) (test code = 37.3 % 40.1-51.0 L 411) POCT-GLUCOSE [id number] 16:20:00 Test Item Value Reference Range Interpretation Comments POC-GLUCOSE METER 217 mg/dL 70-110 H TESTED AT [facility] 6720 (BEAKER) (test code = CARLOSYOSEF [place] 1538) [address] BASIC METABOLIC [id number] 16:19:00 Test Item Value Reference Range Interpretation [...] S NOT APPLICABLE FOR DIALYSIS PATIEN TS. [id number] 16:15:00 Test Item Value Reference Range Interpretation Comments PHOSPHORUS (BEAKER) (test code = 3.4 mg/dL 2.3-4.7 604) [id number] 16:15:00 Test Item Value Reference Range Interpretation Comments MAGNESIUM (BEAKER) (test code = 2.1 mg/dL 1.6-2.6 627) POCT-GLUCOSE [id number] 15:13:00 Test Item Value Reference Range Interpretation Comments POC-GLUCOSE METER 205 mg/dL 70-110 H TESTED AT [place] [address] ([facility]) (test code = [facility] 1538) 49666 POCT-GLUCOSE [id number] 14:17:00 Test Item Value Reference Range Interpretation Comments POC-GLUCOSE METER 154 mg/dL 70-110 H TESTED AT [place] [address] ([facility]) (test code = [facility] 1538) [address]37 POCT-GLUCOSE [id number] 13:34:00 Test Item Value Reference Range Interpretation Comments POC-GLUCOSE METER 144 mg/dL 70-110 H TESTED AT [place] [address] ([facility]) (test code = [facility] 1538) [address]114 BASIC METABOLIC [id number] 12:52:00 Test Item Value Reference Range Interpretation [...] S NOT APPLICABLE FOR DIALYSIS PATIEN TS. [id number] 12:45:00 Test Item Value Reference Range Interpretation Comments PHOSPHORUS (BEAKER) (test code = 1.8 mg/dL 2.3-4.7 L 604) [id number] 12:45:00 Test Item Value Reference Range Interpretation Comments MAGNESIUM (BEAKER) (test code = 2.4 mg/dL 1.6-2.6 627) BLOOD GAS, [id number] 12:26:00 Test Item Value Reference Range Interpretation [...] code = 1819) 21.0 % HEMOGLOBIN AND [id number] 12:24:00 Test Item Value Reference Range Interpretation Comments HEMOGLOBIN (BEAKER) (test code = 11.9 GM/DL 13.7-17.5 L 410) HEMATOCRIT (BEAKER) (test code = 34.2 % 40.1-51.0 L 411) POCT-GLUCOSE [id number] 12:23:00 Test Item Value Reference Range Interpretation Comments POC-GLUCOSE METER 170 mg/dL 70-110 H TESTED AT [facility] 6720 (BEAKER) (test code = CAR[place] 1538) [address] POCT-GLUCOSE [id number] 10:54:00 Test Item Value Reference Range Interpretation Comments POC-GLUCOSE METER 182 mg/dL 70-110 H TESTED AT [facility] 6720 (BEAKER) (test code = CAROLA Roberson [place] 1538) [address] BASIC METABOLIC [id number] 09:55:00 Test Item Value Reference Range Interpretation [...] NOT APPLICABLE FOR DIALYSIS PATIEN TS. POCT-GLUCOSE [id number] 09:44:00 Test Item Value Reference Range Interpretation Comments POC-GLUCOSE METER 217 mg/dL 70-110 H TESTED AT [place] [address] ([facility]) (test code = [facility] 1538) [address] BLOOD GAS, [id number] 08:28:00 Test Item Value Reference Range Interpretation [...] (test code = 1819) 21.0 % POCT-GLUCOSE [id number] 08:24:00 Test Item Value Reference Range Interpretation Comments POC-GLUCOSE METER 207 mg/dL 70-110 H TESTED AT [place] [address] ([facility]) (test code = [facility] [place] 1538) [address] POCT-GLUCOSE [id number] 06:39:00 Test Item Value Reference Range Interpretation Comments POC-GLUCOSE METER 203 mg/dL 70-110 H TESTED AT [facility] 6720 (BEAKER) (test code = [facility] Karol [facility] 1538) 14599 BASIC METABOLIC [id number] 06:37:00 Test Item Value Reference Range Interpretation [...] NOT APPLICABLE FOR DIALYSIS PATIEN TS. POCT-GLUCOSE [id number] 05:26:00 Test Item Value Reference Range Interpretation Comments POC-GLUCOSE METER 253 mg/dL 70-110 H TESTED AT [facility] 67 ([facility]) (test code = [facility] 1538) 26728 BASIC METABOLIC [id number] 05:07:00 Test Item Value Reference Range Interpretation [...] S NOT APPLICABLE FOR DIALYSIS PATIEN TS. [id number] 05:07:00 Test Item Value Reference Range Interpretation Comments MAGNESIUM (BEAKER) (test code = 2.0 mg/dL 1.6-2.6 627) [id number] 05:07:00 Test Item Value Reference Range Interpretation Comments PHOSPHORUS (BEAKER) (test code = 2.8 mg/dL 2.3-4.7 604) BLOOD GAS, [id number] 05:01:00 Test Item Value Reference Range Interpretation [...] code = 1819) 21.0 % LACTIC ACID, [id number] 04:58:00 Test Item Value Reference Range Interpretation Comments LACTATE BLOOD ARTERIAL (2) 0.6 mmol/L 0.5-2.2 (BEAKER) (test code = 2874) CBC W/PLT COUNT & AUTO [id number] 04:57:00 Test Item Value Reference Range Interpretation [...] PERCENT (BEAKER) (test code = 2801) POCT-GLUCOSE [id number] 04:20:00 Test Item Value Reference Range Interpretation Comments POC-GLUCOSE METER 220 mg/dL 70-110 H TESTED AT [facility] 6720 (BEAKER) (test code = [place] 1538) [address] POCT-GLUCOSE [id number] 03:44:00 Test Item Value Reference Range Interpretation Comments POC-GLUCOSE METER 243 mg/dL 70-110 H TESTED AT [facility] 6720 (BEAKER) (test code = CAROLA Roberson [facility] 1538) 98484 POCT-GLUCOSE [id number] 03:06:00 Test Item Value Reference Range Interpretation Comments POC-GLUCOSE METER 196 mg/dL 70-110 H TESTED AT [facility] 6720 ([facility]) (test code = CAROLA Roberson [facility] 1538) 45465 TROPONIN [id number] 03:00:00 Test Item Value Reference Range Interpretation [...] acute neurological disease, and persistent tachyarrhythmia.BASIC METABOLIC [id number] 02:57:00 Test Item Value Reference Range Interpretation [...] NOT APPLICABLE FOR DIALYSIS PATIEN TS. POCT-GLUCOSE [id number] 01:21:00 Test Item Value Reference Range Interpretation Comments POC-GLUCOSE METER 195 mg/dL 70-110 H TESTED AT [facility] (BEAKER) (test code = CAROLA [place] 1538) [id number] TROPONIN [id number] 00:47:00 Test Item Value Reference Range Interpretation [...] failure, acidosis, acute neurological disease, and persistent tachyarrhythmia.[id number] 00:44:00 Test Item Value Reference Range Interpretation Comments PHOSPHORUS (BEAKER) (test code = 1.4 mg/dL 2.3-4.7 LL 604) BLOOD GAS, [id number] 00:41:00 Test Item Value Reference Range Interpretation [...] code = 1819) 21.0 % BASIC METABOLIC [id number] 00:40:00 Test Item Value Reference Range Interpretation [...] (test code = 697) EGFR (BEAKER) (test 44 mL/min/1.73 ESTIMA GUNNAR GFR IS code = 1092) sq m NOT ACCURATE CREATININE CLEARANCE IN PREDICTING GLOMERULAR FILTRATION RATE . ESTIMATED GFR I S NOT APPLICABLE FOR DIALYSIS PATIEN TS. [id number] 00:40:00 Test Item Value Reference Range Interpretation Comments MAGNESIUM (BEAKER) (test code = 2.1 mg/dL 1.6-2.6 627) HEMOGLOBIN AND [id number] 00:21:00 Test Item Value Reference Range Interpretation Comments HEMOGLOBIN (BEAKER) (test code = 12.3 GM/DL 13.7-17.5 L 410) HEMATOCRIT (BEAKER) (test code = 34.9 % 40.1-51.0 L 411) POCT-GLUCOSE [id number] 00:09:00 Test Item Value Reference Range Interpretation Comments POC-GLUCOSE METER 234 mg/dL 70-110 H TESTED AT [facility] (BEAKER) (test code = [place] 1538) [id number] STREP PNEUMONIAE [id number] 00:07:00 Test Item Value Reference Range Interpretation Comments STREP PNEUMONIAE Presumptive negative Presumptive negative ANTIGEN (BEAKER) for pneumococcal for pneumococcal (test code = 1615) pneumonia - see pneumonia - see comment commen Presumptive negative for pneumococcal pneumonia, suggesting no current or recent pneumococcal infection. Infection due to S. pneumoniae cannot be ruled out since the antigen present in the sample may be below the detection limit of the test.LEGIONELLA ANTIGEN, [id number] 00:07:00 Test Item Value Reference Range Interpretation Comments L. PNEUMOPHILA Negative - see Negative fo r L. SEROGP 1 UR AG comment pneumophila (BEAKER) (test code serogrou p 1 antigen, = 1156) suggesting no r ecent or current infe ction with this serog roup. Legionellosis c annot be ruled out si nce other serogroup s and species may cau se disease. POCT-GLUCOSE [id number] 23:15:00 Test Item Value Reference Range Interpretation Comments POC-GLUCOSE METER 247 mg/dL 70-110 H TESTED AT [facility] 67[facility] (BEAKER) (test code = [place] 1538) [id number] BASIC METABOLIC [id number] 23:09:00 Test Item Value Reference Range Interpretation [...] APPLICABLE FOR DIALYSIS PATIEN TS. BLOOD GAS, [id number] 22:52:00 Test Item Value Reference Range Interpretation [...] (test code = 1819) 21.0 % POCT-GLUCOSE [id number] 22:25:00 Test Item Value Reference Range Interpretation Comments POC-GLUCOSE METER 270 mg/dL 70-110 H TESTED AT [facility] 67[facility] (BEAKER) (test code = CAROLA Roberson [place] 1538) [id number] POCT-GLUCOSE [id number] 21:28:00 Test Item Value Reference Range Interpretation Comments POC-GLUCOSE METER 312 mg/dL 70-110 H TESTED AT [place] [id number] (BEAKER) (test code = CARLOSFL Karol [place] 1538) [address] LACTIC ACID, [id number] 20:58:00 Test Item Value Reference Range Interpretation Comments LACTATE BLOOD ARTERIAL (2) 1.7 mmol/L 0.5-2.2 (BEAKER) (test code = 2874) BASIC METABOLIC [id number] 20:51:00 Test Item Value Reference Range Interpretation [...] NOT APPLICABLE FOR DIALYSIS PATIEN TS. POCT-GLUCOSE [id number] 20:37:00 Test Item Value Reference Range Interpretation Comments POC-GLUCOSE METER 334 mg/dL 70-110 H TESTED AT [facility] (BEAKER) (test code = CAROLA Roberson [facility] 1538) [address] RAD, CHEST, 1 VIEW, NON [id number] 20:13:00Post-intubationReason for exam:- >r/o pnaShould this be performed at the bedside?->YesFINAL REPORT History: "Rule out pneumonia". Comparison: None. Findings: A sin gle view of the chest is submitted. The cardiomediastinal contours are unremarkable. There is no focal consolidation, pneumothorax, large pleural effusion or evidence of overt pulmonary edema. Thereis no acute bony abnormality. Impression: No acute abnormality. Signed: Jacques Vora MDReport Verified Date/Time: 10/14/2018 20:13:51 Reading Location: [address] Reading Room POCT-GLUCOSE [id number] 19:39:00 Test Item Value Reference Range Interpretation Comments POC-GLUCOSE METER 432 mg/dL 70-110 HH TESTED AT [facility] [address] ([facility]) (test code = [facility] Kraol [facility] 1538) [address] HEMOGLOBIN [id number] 19:16:00 Test Item Value Reference Range Interpretation Comments HEMOGLOBIN A1C ([facility]) (test code = 10.2 % 4.3-6.1 H 368) [id number] 18:52:00 Test Item Value Reference Range Interpretation Comments PROCALCITONIN ([facility]) (test code 5.14 ng/mL <0.05 H = 3036) SEPSIS RISK (ng/mL)Low: 0.05-0.50Intermediate: 0.51-2.00High: >=2.01CBC W/PLT COUNT & AUTO [id number] 18:37:00 Test Item Value Reference Range Interpretation Comments WHITE BLOOD CELL COUNT ([facility]) 24.9 K/ L 3.5-10.5 H (test code = 775) RED BLOOD CELL COUNT ([facility]) 4.23 M/ L 4.63-6.08 L (test code = 761) HEMOGLOBIN ([facility]) (test code = 13.0 GM/DL 13.7-17.5 L [...] (BEAKER) (test code = 2801) BASIC METABOLIC [id number] 18:29:00 Test Item Value Reference Range Interpretation [...] APPLICABLE FOR DIALYSIS PATIEN TS. HEPATIC FUNCTION [id number] 18:29:00 Test Item Value Reference Range Interpretation [...] = 23 U/L 6-55 347) LACTIC ACID, [id number] 18:24:00 Test Item Value Reference Range Interpretation Comments LACTATE BLOOD ARTERIAL (2) 3.0 mmol/L 0.5-2.2 H (BEAKER) (test code = 2874) BLOOD GAS, [id number] 17:52:00 Test Item Value Reference Range Interpretation [...] 21.0 % CBC W/PLT COUNT & AUTO [id number] 17:50:00 Test Item Value Reference Range Interpretation [...] 3438) Received comment: User comments: Slide comments:POCT-GLUCOSE [id number] 17:49:00 Test Item Value Reference Range Interpretation Comments POC-GLUCOSE METER > mg/dL 70-110 HH OUTSIDE ME ASURING (BEAKER) (test code RANGETES GUNNAR AT [facility] 67[facility] = 1538) [facility] [address] KETONE, [id number] 17:13:00 Test Item Value Reference Range Interpretation Comments KETONES, BLOOD (BEAKER) (test code 5.4 mmol/L <0.4 H = 1103) TSH/FREE T4 IF [id number] 17:10:00 Test Item Value Reference Range Interpretation Comments THYROID STIMULATING HORMONE 0.64 uIU/mL 0.35-4.94 (BEAKER) (test code = 772) BASIC METABOLIC [id number] 16:57:00 Test Item Value Reference Range Interpretation [...] NOT APPLICABLE FOR DIALYSIS PATIEN TS. TROPONIN [id number] 16:56:00 Test Item Value Reference Range Interpretation [...] failure, acidosis, acute neurological disease, and persistent tachyarrhythmia.[id number] 16:50:00 Test Item Value Reference Range Interpretation Comments MAGNESIUM (BEAKER) 2.4 mg/dL 1.6-2.6 Specimen slightly (test code = 627) hemolyzed [id number] 16:50:00 Test Item Value Reference Range Interpretation Comments PHOSPHORUS (BEAKER) 5.6 mg/dL 2.3-4.7 H Specimen slightly (test code = 604) hemolyzed [id number] 16:50:00 Test Item Value Reference Range Interpretation Comments AMYLASE (BEAKER) (test 47 U/L 25-125 Speci men slightly code = 349) hemolyzed [id number] 16:50:00 Test Item Value Reference Range Interpretation Comments LIPASE (BEAKER) (test code = 749) 199 U/L 8-78 H PROTHROMBIN [id number] 16:47:00 Test Item Value Reference Range Interpretation [...] INR is2.5-3.5 for patients wiht mechanical heart valves.[id number] 16:47:00 Test Item Value Reference Range Interpretation Comments PARTIAL THROMBOPLASTIN TIME 23.5 seconds 22.5-36.0 (BEAKER) (test code = 760) [id number] 16:47:00 Test Item Value Reference Range Interpretation Comments FIBRINOGEN LEVEL (BEAKER) (test 284 mg/dl 225-434 code = 658) LACTIC ACID, [id number] 16:44:00 Test Item Value Reference Range Interpretation Comments LACTATE BLOOD VENOUS 4.2 mmol/L 0.5-2.2 H Specime n slightly (2) (BEAKER) (test hemolyzed code = 2872) HEMOGLOBIN AND [id number] 16:34:00 Test Item Value Reference Range Interpretation Comments HEMOGLOBIN (BEAKER) (test code = 14.5 GM/DL 13.7-17.5 410) HEMATOCRIT (BEAKER) (test code = 42.9 % 40.1-51.0 411) POTASSIUM-STAT [id number] 16:21:00 Test Item Value Reference Range Interpretation Comments POTASSIUM (BEAKER) (test code = 7.0 meq/L 3.6-5.5 HH 379) GLUCOSE-STAT [id number] 16:21:00 Test Item Value Reference Range Interpretation Comments GLUCOSE RANDOM (BEAKER) (test code 650 mg/dL 70-110 HH = 652) BLOOD GAS, [id number] 16:21:00 Test Item Value Reference Range Interpretation [...] code = 1819) 21.0 % SODIUM NA-STAT [id number] 16:15:00 Test Item Value Reference Range Interpretation Comments SODIUM (BEAKER) (test code = 381) 142 meq/L 135-148 HGB/HCT (H&H) - STAT [id number] 16:15:00 Test Item Value Reference Range Interpretation Comments HEMOGLOBIN (BEAKER) (test code = 14.8 g/dL 13.0-16.8 410) HEMATOCRIT (BEAKER) (test code = 44.0 % 40.0-50.0 411) POCT-GLUCOSE [id number] 15:42:00 Test Item Value Reference Range Interpretation Comments POC-GLUCOSE METER > mg/dL 70-110 HH OUTSIDE ME ASURING (BEAKER) (test code RANGENot ified YVONNE MD/TESTED = 1538) AT [facility] [facility] [phone]
--- OUTSIDE RECORDS SUMMARY | 2020-02-07 04:01 | XMS REPORT | Summary of Care ---
:1990 Author Organization [facility] Address [address] [place] [address] Care Team Providers Name Role Phone Meggan Ray MD Primary Care Provider Reason for Visit Reason Comments New Patient Hand Pain Right DOI 01/30/2020 Encounter Details Date Type Department Care Team Description 02/03/2020 Office Visit [facility] Orthopaedic Jose Tenorio C losed displaced Surgery- [facility] fracture of shaft of [address] fourth metacarpal bone [address] Enrique C [place], [place] [address] [address] [place], [place] encounter (Primary Dx) [phone] Allergies No Known Allergiesdocumented as of this encounter (statuses as of 02/03/2020) Medications Medication Sig Dispensed Refills Start Date [...] as of this encounter (statuses as of 02/03/2020) Active Problems Problem Noted Date Attention deficit hyperactivity disorder (ADHD) 2006 Overview: ICD10 Diagnosis Term Benefits Assistant Utility Uncontrolled type 1 diabetes mellitus 10/01/2005 Overview: Dx age 4 ICD10 Diagnosis Term Benefits Assistant Utility Trichomoniasis documented as of this encounter (statuses as of 02/03/2020) Resolved Problems Problem Noted Date Resolved Date DKA (diabetic ketoacidoses) 07/29/2015 01/29/2019 documented as of this encounter (statuses as of 02/03/2020) Immunizations Name Administration Dates Next Due Influenza Virus Vaccine 02/15/2008, 02/19/2004 documented as of this encounter Social History Tobacco Use Types Packs/Day Years Used Date Never Smoker Smokeless Tobacco: Current User Snuff Comments: on and off Alcohol Use Drinks/Week oz/Week Comments Yes Alcohol Habits Answer Date Recorded How often do you have a drink containing alcohol? Monthly or less 02/03/2020 How many drinks containing alcohol do you have on a Not aske d 02/03/2020 typical day when you are drinking? How often do you have six or more drinks on one Not asked 02/03/2020 occasion? Sex Assigned at Date Recorded Not on file documented as of this encounter Last Filed Vital Signs Vital Sign Reading Time Taken Comments Blood Pressure 116/73 02/03/2020 3:00 PM CDT Pulse 103 02/03/2020 3:00 PM CDT Temperature - - Respiratory Rate - - Oxygen Saturation - - Inhaled Oxygen Concentration - - Weight 79.4 kg (175 lb) 02/03/2020 3:00 PM CDT Height 180.3 cm (5' 11") 02/03/2020 3:00 PM CDT Body Mass Index 24.41 02/03/2020 3:00 PM CDT documented in this encounter Progress Notes Jose Tenorio, PAC - 02/03/2020 2:45 PM CDT Cc: Chief Complaint Patient presents with New Patient Hand Pain Right DOI 01/30/2020 Vitals: 02/03/20 1500 BP: 116/73 Pulse: 103 Weight: 79.4 kg (175 lb) Height: 71" (180.3 cm) [facility] [address] [place] [address] Incident occurred: 01/30/2020 - 4 days Incident location: At work Injury mechanism: Patient states he works at [employer]. 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 Pain location: Right hand DME status: Arrived with temp splint Radiology status: Films from [facility] All Vitals taken, allergies and all medications reviewed, fall risk assessed. Pain level 12/01. MarisoldiaRamos 02/03/2020 3:02 PM Enio Bradley is a 29 year old male. Here for fracture mid fourth metacarpal date of injury 01/30/2020. He was lifting up a wheelbarrow full of concrete adducted and had pain in his hand he didn't impact anything or make any direct traumathis is an activity that is done many times before. He felt a pop in his hand and then "his knucklewas gone ". Seen in the emergency department of [facility] they did x-rays there found him to have a displaced fourth metacarpal fracture and placed him in an ulnar gutter splint referring him. Allergies Enio has No Known Allergies. Medications Outpatient Medications Prior to Visit Medication Sig Dispense Refill insulin aspart (NOVOLOG FLEXPEN U-100 INSULIN SC) inject under the skin. Per sliding scale and carb intake Insulin Glargine (LANTUS SOLOSTAR U-100 INSULIN) 100 unit/mL (3 mL) injection inject 30-35 Unitsunder the skin 2 (two) times daily. cephALEXin 500 mg capsule TAKE 1 CAPSULE BY MOUTH THREE TIMES DAILY 0 clindamycin 300 mg capsule TAKE 1 CAPSULE BY MOUTH THREE TIMES DAILY 0 mupirocin 2 % ointment APPLY ON THE SKIN TWICE A DAY 1 No facility-administered medications prior to visit. Histories Past Medical History: Diagnosis Date Acute pancreatitis 03/01 hospitalized in [place] for ?pancreatitis, not clear of cause Diabetes with ketoacidosis 01/02/2006 Trichomoniasis Type I (juvenile type) diabetes mellitus without mention of complication, uncontrolled 10/01/2005 Dx age 4; multiple admissions for DKA, last was 06/29 at [place] Past Surgical History: Procedure Laterality Date TOOTH EXTRACTION WISDOM TEETH Social History Socioeconomic History Marital status: Single Spouse name: Not on file Number of children: Not on file Years of education: Not on file Highest education level: Not on file Occupational History Not on file Social Needs Financial resource strain: Not on file Food insecurity Worry: Not on file Inability: Not on file Transportation needs Medical: Not on file Non-medical: Not on file Tobacco Use Smoking status: Never Smoker Smokeless tobacco: Current User Types: Snuff Tobacco comment: on and off Substance and Sexual Activity Alcohol use: Yes Frequency: Monthly or less Drug use: No Sexual activity: Not on file Lifestyle Physical activity Days per week: Not on file Minutes per session: Not on file Stress: Not on file Relationships Social connections Talks on phone: Not on file Gets together: Not on file Attends shinto service: Not on file Active member of club or organization: Not on file Attends meetings of clubs or organizations: Not on file Relationship status: Not on file Intimate partner violence Fear of current or ex partner: Not on file Emotionally abused: Not on file Physically abused: Not on file Forced sexual activity: Not on file Other Topics Concern Not on file Social History Narrative Has completed High school, now working; lives with Mother and 2 brothers; planning on attending [employer] next year to study mechanical engineering. Does well in school; has a girlfriend. Family History Problem Relation Age of Onset Diabetes Maternal Grandfather Diabetes Paternal Grandfather Heart Other pt reports lot of people in family with these other problems; not sure who Hypertension Other Cancer Other Coronary Heart Disease Other Review of Systems Constitutional: Positive for activity change. HENT: Negative. Eyes: Negative. Respiratory: Negative. Cardiovascular: Negative. Gastrointestinal: Negative. Genitourinary: Negative. Musculoskeletal: Positive for joint swelling. Skin: Negative. Neurological: Negative. Psychiatric/Behavioral: Negative. Endocrine: Endocrine negative Vital Signs BP 116/73 | Pulse 103 | Ht 71" (180.3 cm) | Wt 79.4 kg (175 lb) | BMI 24.41 kg/m Physical Exam Musculoskeletal: Comments: Physical Exam Constitutional: oriented to person, place, and time. appears well-developed and well-nourished. HENT: Head: Normocephalic and atraumatic. Right Ear: External ear normal. Left Ear: External ear normal. Eyes: Conjunctivae are normal. Neck: Normal range of motion. No strabismus Neck supple. Cardiovascular: Normal rate and regular rhythm. Pulmonary/Chest: Normal respiratory rate equal chest rise and fall in no apparent distress Abdominal: Abdomen nondistended nontender Neurological: alert and oriented to person, place, and time. No asymmetry Skin: Skin is warm and dry. Psychiatric: normal mood and affect. behavior is normal. Judgment and thought content normal. Nursing note and vitals reviewed. He has edema over the dorsum of his right hand with a shortening of his fourth finger and the fingercascade and a decompressed fourth of metacarpal phalangeal joint Assessment/Plan 1. Closed displaced fracture of shaft of fourth metacarpal bone of right hand, initial encounter We will schedule him for an open reduction internal fixation of the right fourth carpal 02/05/2020 at surgery Center I have discussed the patient's physical exam and reviewed their x- rays/imaging/results with them in detail. Discussed surgery at great lengths regarding risks and benefits. Explained as with any procedure there may be pain, damage to nerve and vascular structures, fat embolism, need for additional surgery, failure of procedure to relieve pain. We spoke of recovery time, expected outcome, possible restrictions and anticipation return to work date as well as possible rehabilitation if needed or required after the surgery. All questions have been answered. Condition and plans were discussed with patient, who expressed understanding and is agreeable to theplan. documented in this encounter Plan of Treatment Name Type Priority Associated Diagnoses Order S chedule CBC WITH DIFF LAB Routine Closed displaced Expected: fracture of shaft of 020, fourth metacarpal bone Expir es: 02/02/2021 of right hand, initial encounter BASIC METABOLIC PANEL LAB Routine Closed displaced Ex pected: (02128)(NA, K, CL, fracture of shaft of 1 , CO2, GLUCOSE, BUN, fourth metacarpal bone Expires: 02/02/2021 CREATININE, CA) of right hand, initial encounter EKG-12 LEAD ROUTINE HEART STATION Routine Closed displaced Exp ected: fracture of shaft of 020, fourth metacarpal bone Expir es: 03/05/2020 of right hand, initial encounter Health Maintenance Due Date Last Done Comments VARICELLA VACCINES (1 of 2 1991 - 2-dose childhood series) EYE EXAM 2000 Depression Screening 2002 FOOT EXAM 2008 URINE MICROALBUMIN 02/17/2009 02/18/2008, 03/27/2007, 05/11/2006, Additional history exists DTaP,Tdap,and Td Vaccines 2009 (1 - Tdap) LDL-C 08/06/2009 08/06/2008, 08/06/2008, 05/11/2006, Additional history exists HgA1C 01/12/2012 07/12/2011, 08/06/2008, 02/15/2008, Additional history exists CREATININE (SERUM) 07/30/2016 07/31/2015, 07/30/2015, 07/30/2015, Additional history exists INFLUENZA VACCINE (#1) 2019 02/15/2008, 02/19/2004 PNEUMOCOCCAL 0-64 YEARS Aged Out No longe r eligible COMBINED SERIES based on patient 's age to complete this topic documented as of this encounter Results Not on filedocumented in this encounter Visit Diagnoses Diagnosis Closed displaced fracture of shaft of fo urth metacarpal bone of right hand, initial encounter - Primary documented in this encounter
--- OUTSIDE RECORDS SUMMARY | 2020-02-07 04:01 | XMS REPORT | Summary of Care ---
:1990 Author Organization [facility] Address [address] [place] [address] Care Team Providers Name Role Phone Meggan Ray MD Primary Care Provider Reason for Visit Reason Comments LAB WORK Auth/Cert Status Reason Specialty Diagnoses / Procedures Referred By Ken combs Referred To Contact Phlebotomy Diagnoses pre op Adc Pob Lab Draw Procedures BASIC METABOLIC PANEL (NA, K, CL, CO2, GLUCOSE, BUN, CREATININE, CA) Professional Office Building [address] [place] [address] , [address] [place] [address] Phone: Fax: Encounter Details Date Type Department Care Team Description 02/04/2020 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 [facility] Isaias Rae MD [address] [place] [address] Closed displaced Professional Office Pob, Adc Lab Main fracture of shaft of Building Phlebotomy fourth m etacarpal Lab bone of right hand, Professional Office initial encounter [address] [facility] , [address] [place] [address] Allergies No Known Allergiesdocumented as of this encounter (statuses as of 02/04/2020) Medications Medication Sig Dispensed Refills Start Date [...] as of this encounter (statuses as of 02/04/2020) Active Problems Problem Noted Date Attention deficit hyperactivity disorder (ADHD) 2006 Overview: ICD10 Diagnosis Term Rehabilitation Therapy Aide Utility Uncontrolled type 1 diabetes mellitus 10/01/2005 Overview: Dx age 4 ICD10 Diagnosis Term Rehabilitation Therapy Aide Utility Trichomoniasis documented as of this encounter (statuses as of 02/04/2020) Resolved Problems Problem Noted Date Resolved Date DKA (diabetic ketoacidoses) 07/29/2015 01/29/2019 documented as of this encounter (statuses as of 02/04/2020) Immunizations Name Administration Dates Next Due Influenza [...] Assigned at Date Recorded Not on file COVID-19 Exposure Response Date Recorded In the last month, have you been in contact with No / Unsure 02/03/2020 4:12 PM CDT someone who was confirmed or suspected to have Coronavirus / COVID-19? documented as of this encounter Last Filed Vital Signs Not on filedocumented in this encounter Nursing Notes Ashley Lord - 02/04/2020 10:15 AM CDT Venipuncture collection performed by clean technique on the left forearm(s). Total of 1 attempts were made. Slight pressure and a bandage/dressing were applied to the site(s). The patient experienced no complications. The following specimens were processed according to instructions and sent to [facility] laboratories per lab order on 02/04/20: LT BLUE 1 SST RED 1 LAV PPT DK GREEN (LiHep) DK GREEN (SodH) DONIS DK BLUE (K2) DK BLUE (S) ACD Blood Culture NIPT/NTD documented in this encounter Plan of Treatment Health [...] metacarpal bone of right hand, initial encounter documented in this encounter
--- OUTSIDE RECORDS SUMMARY | 2020-02-07 04:01 | XMS REPORT | Summary of Care ---
:1990 Author Organization [facility] Address [address] [place] [id number] Care Team Providers Name Role Phone Meggan Ray MD Primary Care Provider Reason for Visit Reason Comments New Patient Hand Pain Right DOI 01/30/2020 Encounter Details Date Type Department Care Team Description 02/03/2020 Office Visit [facility]opaedic Jose Tenorio C losed displaced Surgery- [facility] fracture of shaft of [address], [address] fourth metacarpal bone [address] C [place], [place] [address] [place], [place] encounter (Primary Dx) [phone] Allergies No Known Allergiesdocumented as of this [...] disorder (ADHD) 2006 Overview: ICD10 Diagnosis Term Life Specialist Utility Uncontrolled type 1 diabetes mellitus 10/01/2005 Overview: Dx age 4 ICD10 Diagnosis Term Life Specialist Utility Trichomoniasis documented as of this encounter [...] kg (175 lb) Height: 71" (180.3 cm) [facility] [address] [place] [address] Incident occurred: 01/30/2020 - 4 days Incident location: At work Injury mechanism: Patient states he works at [employer] and [employer]. 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 Pain location: Right hand DME status: Arrived with temp splint Radiology status: Films from [facility] All Vitals taken, allergies and all medications [...] ". Seen in the emergency department of [facility] they did x-rays there found him to [...] Diagnosis Date Acute pancreatitis 03/01 hospitalized in [place] for ?pancreatitis, not clear of cause Diabetes with ketoacidosis 01/02/2006 Trichomoniasis Type I (juvenile type) diabetes mellitus without mention of complication, uncontrolled 10/01/2005 Dx age 4; multiple admissions for DKA, last was 06/29 at [place] Past Surgical History: Procedure Laterality Date TOOTH [...] file Gets together: Not on file Attends sikhism service: Not on file Active member of [...] Mother and 2 brothers; planning on attending [employer] next year to study mechanical engineering. Does [...] PANEL LAB Routine Closed displaced Ex pected: (18933)(NA, K, CL, fracture of shaft of 1 [...]
--- OUTSIDE RECORDS SUMMARY | 2020-02-07 04:02 | XMS REPORT | Summary of Care ---
:1990 Author Organization [facility] Address [address] [place] [id number] Care Team Providers Name Role Phone Meggan Ray MD Primary Care Provider Reason for Visit Reason Comments Surgery Clearance Encounter Details Date Type Department Care Team Description 02/05/2020 Telephone [facility] Orthopaedic Isaias Rae , Surgery Clearance Surgery- Augusto GARZA [address] [facility] [address] [place] [address] [place], [place] [phone] Allergies No Known Allergiesdocumented as of this encounter (statuses as of 02/06/2020) Medications Medication Sig Dispensed Refills Start Date End Date Status clindamycin 300 mg TAKE 1 CAPSULE BY 0 01/04/2019 Active capsule MOUTH THREE TIMES DAILY mupirocin 2 % ointment APPLY ON THE SKIN 9 Active TWICE A DAY Insulin Glargine [...] as of this encounter (statuses as of 02/06/2020) Active Problems Problem Noted Date Attention deficit hyperactivity disorder (ADHD) 2006 Overview: ICD10 Diagnosis Term Corrective Therapy Aide Utility Uncontrolled type 1 diabetes mellitus 10/01/2005 Overview: Dx age 4 ICD10 Diagnosis Term Corrective Therapy Aide Utility Trichomoniasis documented as of this encounter (statuses as of 02/06/2020) Resolved Problems Problem Noted Date Resolved Date DKA (diabetic ketoacidoses) 07/29/2015 01/29/2019 documented as of this encounter (statuses as of 02/06/2020) Immunizations Name Administration Dates Next Due Influenza [...] Signs Not on filedocumented in this encounter Miscellaneous Notes Telephone Encounter - Silvana Neal - 02/06/2020 9:36 AM CDTSpoke to patient several times yesterday regarding his surgery at [facility]. Jose spoke to anesthesia and requested the patient visit with them this morning at 7am. Silvana Neal 02/06/2020 9:37 AM elephone Encounter - Edna Yañez - 02/05/2020 3:55 PM CDTPatient called and he would like to have his surgery on 02/10/2020 at [facility]. He was scheduled today at [facility] but was unable to have his surgery due to his glucose count. Please call patient to confirm the 02/10/2020 surgery date. Thank you. documented in this encounter Plan of Treatment [...] 01/12/2012 07/12/2011, 08/06/2008, 02/15/2008, Additional history exists INFLUENZA VACCINE (#1) 2019 02/15/2008, 02/19/2004 CREATININE (SERUM) 02/03/2021 02/04/2020, 07/31/2015, 07/30/2015, Additional history exists PNEUMOCOCCAL 0-64 YEARS Aged Out No longe r eligible COMBINED SERIES based on patient 's age to complete this topic documented as of this encounter Results Not on filedocumented in this encounter
[2020-02-07 04:20] LABS: Arterial Blood Carboxyhemoglob 1.5 % (0-1.5); Blood O2 Saturation 94.1 % (92-98.5)
[2020-02-07 04:37] LABS: Absolute Lymphocytes (CBC) 1.3 K/uL (0.7-4.9); Basophils % 0.5 % (0-1.3); Lymphocytes % 16.9 % (15.3-44.8); MPV 7.5 fL (7.6-11.3); RBC Red Blood Cell Count 4.93 M/uL (4.33-5.43)
[2020-02-07 04:56] LABS: ALT/SGPT 40 U/L (12-78); AST/SGOT 22 U/L (15-37); Albumin 4.1 g/dL (3.4-5.0); Alkaline Phosphatase 94 U/L (45-117); BUN Blood Urea Nitrogen 19 mg/dL (7-18); Bicarbonate 30 mmol/L (21-32); Bilirubin Direct 0.2 mg/dL (0-0.2); Glucose Level 81 mg/dL (74-106); Lipase 109 U/L (73-393); Magnesium 2.2 mg/dL (1.8-2.4); NT PRO-BNP 14 pg/mL (<125); Potassium 3.6 mmol/L (3.5-5.1); Sodium Level 142 mmol/L (136-145); Troponin (Emerg Dept Use Only) < 0.02 ng/mL (0.0-0.045)
[2020-02-07] MEDS ORDERED: NA CHLORIDE 0.9% 2,000 ML ONE (05:07)
[2020-02-07] MEDS ORDERED: CEFTRIAXONE/SWI 1gm 1 GM/10 ML SYR ONE (05:58)
[2020-02-07] MEDS ORDERED: NA CHLORIDE 0.9% 1,000 ML ONE (07:52)
[2020-02-07] MEDS ORDERED: METRONIDAZOLE 500mg IVPB 500 MG/100 ML BAG IV ONE (07:52)
--- NOTE | 2020-02-07 08:52 | ER ---
Nurse's Notes [facility] Name: Enio Bradley Age: 29 yrs Sex: Male : 1990 Arrival Date: 02/07/2020 Time: 03:58 Bed 7 Private MD: Diagnosis: Type 1 diabetes mellitus;Other and unspecified noninfective gastroenteritis and colitis-mild ascending colon colitis;Vomiting Presentation: 02/06 04:07 Chief complaint: Patient states: he thinks he has DKA he has been vomiting x 2 days and bb can't hold anything down and he cant get his BGL down it was 432 this AM. Coronavirus screen: At this time, the client does not indicate any symptoms associated with coronavirus-19. Ebola Screen: No symptoms or risks identified at this time. Initial Sepsis Screen: Does the patient meet any 2 criteria? No. Patient's initial sepsis screen is negative. Does the patient have a suspected source of infection? No. Patient's initial sepsis screen is negative. Risk Assessment: Do you want to hurt yourself or someone else? Patient reports no desire to harm self or others. Onset of symptoms was February 05, 2020. 04:07 Method Of Arrival: Ambulatory bb 04:07 Acuity: JAMAL 3 bb Historical: - Allergies: 04:10 No Known Allergies; bb - Home Meds: 04:10 Novolog Flexpen subcutaneous [Active]; Tresiba FlexTouch U-100 subcutaneous [Active]; bb - PMHx: 04:10 ADD/ADHD; Diabetes - IDDM; bb - PSHx: 04:10 Ear Tubes; bb - Immunization history:: Adult Immunizations up to date. - Social history:: Smoking status: Patient denies any tobacco usage or history of. Patient/guardian denies using alcohol, street drugs. - Family history:: not pertinent. Screenin:29 Abuse screen: Denies threats or abuse. Nutritional screening: No deficits noted. tw2 Tuberculosis screening: No symptoms or risk factors identified. Fall Risk None identified. Assessment: 04:30 General: Appears uncomfortable, Behavior is calm, cooperative. rv 04:30 Pain: Complains of pain in abdomen. Neuro: Level of Consciousness is awake, alert, rv obeys commands, Oriented to person, place, time, situation. Cardiovascular: Patient's skin is warm and dry. Respiratory: Airway is patent Respiratory effort is even, unlabored, Breath sounds are clear bilaterally. GI: Abdomen is round non-distended, Reports nausea, vomiting. Derm: Skin is intact. 07:00 Reassessment: RECD REPORT FROM PB RUSSELL. 29YO WM P/W N/V AND HYPERGLYCEMIA. LAB bp RESULTS PENDING. 07:22 Reassessment: Patient appears in no apparent distress at this time. Patient and/or tw2 family updated on plan of care and expected duration. Pain level reassessed. Patient is alert, oriented x 3, equal unlabored respirations, skin warm/dry/pink. pt sitting up laughing with significant other at bedside at this time. 08:39 Reassessment: Patient appears in no apparent distress at this time. Patient and/or tw2 family updated on plan of care and expected duration. Pain level reassessed. Patient is alert, oriented x 3, equal unlabored respirations, skin warm/dry/pink. pt able to keep apple juice and some crackers down at this time. 09:01 Reassessment: Patient appears in no apparent distress at this time. Patient and/or tw2 family updated on plan of care and expected duration. Pain level reassessed. Patient is alert, oriented x 3, equal unlabored respirations, skin warm/dry/pink. Patient states feeling better. Vital Signs: 04:00 BP 123 / 81; Pulse 112; Resp 17; Pulse Ox 99% on R/A; rv 04:07 BP 123 / 81; Pulse 115; Resp 18 S; Temp 98.6(O); Pulse Ox 98% on R/A; Weight 79.38 kg bb (R); Height 5 ft. 11 in. (180.34 cm) (R); Pain 0/10; 05:00 BP 144 / 89; Pulse 111; Resp 16; Pulse Ox 100% on R/A; rv 06:00 BP 150 / 94; Pulse 112; Resp 17; Pulse Ox 99% on R/A; rv 07:26 BP 151 / 95; Pulse 108; Resp 17; Pulse Ox 99% on R/A; tw2 08:39 BP 149 / 96; Pulse 106; Resp 17; Pulse Ox 99% on R/A; tw2 04:07 Body Mass Index 24.41 (79.38 kg, 180.34 cm) ED Course: 03:58 Patient arrived in ED. cl3 04:01 Sabas Velazco MD is Attending Physician. kinza 04:10 Triage completed. bb 04:10 Arm band placed on Patient placed in an exam room, on a stretcher, on pulse oximetry. bb 04:29 XRAY Chest (1 view) In Process Unspecified. EDMS 04:45 Aristides Sierra, RN is Primary Nurse. rv 05:33 Notified ED physician of a critical lab result(s). Lactic acid of 2.4, Dr Jaun A garcia notified. 06:31 CT Abd/Pelvis - IV Contrast Only In Process Unspecified. EDMS 07:00 Bed in low position. Adult w/ patient. tw2 07:00 Inserted saline lock: 20 gauge in left antecubital area, using aseptic technique. tw2 ,using aseptic technique. YVONNE Combs. 07:13 Primary Nurse role handed off by Aristides Sierra, YVONNE bp 07:13 Mike Haddad, YVONNE is Primary Nurse. bp 07:45 Missed attempt(s): 20 gauge in right forearm. Bleeding controlled, band aid applied, tw2 catheter tip intact. Missed attempt(s): 22 gauge in right forearm. blood collected for lactate. Bleeding controlled, band aid applied, catheter tip intact. 08:51 Mohinder Cabello MD is Referral Physician. kdr 09:02 No provider procedures requiring assistance completed. IV discontinued, intact, tw2 bleeding controlled, No redness/swelling at site. Pressure dressing applied. Administered Medications: 04:58 Drug: NS 0.9% 1000 ml Route: IV; Rate: 1 bolus; Site: left antecubital; jb4 07:40 Follow up: Response: No adverse reaction; IV Status: Completed infusion; IV Intake: tw2 1000ml 04:59 Drug: NS 0.9% 1000 ml Route: IV; Rate: 1 bolus; Site: left antecubital; jb4 07:34 Follow up: Response: No adverse reaction; IV Status: Completed infusion; IV Intake: tw2 1000ml 06:12 Drug: Rocephin 1 grams Route: IV; Rate: per protocol; Site: left antecubital; rv 07:40 Drug: NS 0.9% 500 ml Route: IV; Rate: bolus; Site: left antecubital; tw2 08:39 Follow up: Response: No adverse reaction; IV Status: Completed infusion; IV Intake: tw2 500ml 08:03 Drug: Flagyl 500 mg Volume: 100 ml; Route: IVPB; Rate: 200 ml/hr; Infused Over: 30 tw2 mins; Site: left antecubital; 08:38 Follow up: Response: No adverse reaction; IV Status: Completed infusion tw2 08:38 Drug: NS 0.9% 1000 ml Route: IV; Rate: 150 ml/hr; Site: left antecubital; tw2 09:00 Follow up: Response: No adverse reaction; IV Status: Order to discontinue infusion tw2 Point of Care Testing: Blood Glucose: 07:26 Blood Glucose: 66 mg/dL; tw2 08:03 Blood Glucose: 89 mg/dL; tw2 07:26 provider notified, requests PO juice at this time, pt agreeable. tw2 08:[address] Velazco at bedside at this time. tw2 Ranges: Intake: 07:34 IV: 1000ml; Total: 1000ml. tw2 07:40 IV: 1000ml; Total: 2000ml. tw2 08:39 IV: 500ml; Total: 2500ml. tw2 Outcome: 08:51 Discharge ordered by . kdr 09:02 Discharged to home ambulatory, with significant other. tw2 09:02 Condition: stable 09:02 Discharge instructions given to patient, significant other, Instructed on discharge instructions, follow up and referral plans. medication usage, Demonstrated understanding of instructions, follow-up care, medications, Prescriptions given X 3. 09:02 Patient left the ED. tw2 Signatures: Dispatcher [employer] EDSabas Alvarez MD MD cha Rittger, Kevin, MD MD kdr Ballard, Brenda, RN RN bb Aspen Draper RN RN tw2 Jermaine Wolf RN RN jb4 Mike Haddad RN RN bp Aristides Sierra, YVONNE RN Vandana Fernández cl3
--- NOTE | 2020-02-07 08:52 | EDPHYS ---
Physician Documentation [facility] Name: Enio Bradley Age: 29 yrs Sex: Male : 1990 Arrival Date: 02/07/2020 Time: 03:58 Bed 7 Private MD: HERNAN Physician Sabas Velazco HPI: 02/06 04:13 This 29 yrs old Male presents to ER via Ambulatory with complaints of Dka. kinza 04:13 The patient presents to the emergency department with nausea, vomiting, abdominal pain, kinza of the right upper quadrant, left upper quadrant, right lower quadrant and left lower quadrant. Onset: The symptoms/episode began/occurred 2 day(s) ago. Possible causes: unknown. The symptoms are aggravated by food , The symptoms are alleviated by food . hx of type 1 dm, hx of dka. Associated signs and symptoms: The patient has no apparent associated signs or symptoms. Severity of symptoms: At their worst the symptoms were mild in the emergency department the symptoms are unchanged. The patient has experienced similar episodes in the past, multiple times. Historical: - Allergies: 04:10 No Known Allergies; bb - Home Meds: 04:10 Novolog Flexpen subcutaneous [Active]; Tresiba FlexTouch U-100 subcutaneous [Active]; bb - PMHx: 04:10 ADD/ADHD; Diabetes - IDDM; bb - PSHx: 04:10 Ear Tubes; bb - Immunization history:: Adult Immunizations up to date. - Social history:: Smoking status: Patient denies any tobacco usage or history of. Patient/guardian denies using alcohol, street drugs. - Family history:: not pertinent. ROS: 04:13 Constitutional: Negative for fever, chills, and weight loss, Eyes: Negative for injury, kinza pain, redness, and discharge, ENT: Negative for injury, pain, and discharge, Neck: Negative for injury, pain, and swelling, Cardiovascular: Negative for chest pain, palpitations, and edema, Respiratory: Negative for shortness of breath, cough, wheezing, and pleuritic chest pain, Back: Negative for injury and pain, : Negative for injury, bleeding, discharge, and swelling, MS/Extremity: Negative for injury and deformity, Skin: Negative for injury, rash, and discoloration, Neuro: Negative for headache, weakness, numbness, tingling, and seizure, Psych: Negative for depression, anxiety, suicide ideation, homicidal ideation, and hallucinations, Allergy/Immunology: Negative for hives, rash, and allergies. 04:13 Abdomen/GI: Positive for nausea and vomiting, abdominal cramps. 04:13 Endocrine: Positive for polyuria, high blood glucose levels. Exam: 04:13 Constitutional: This is a well developed, well nourished patient who is awake, alert, kinza and in no acute distress. Head/Face: Normocephalic, atraumatic. Eyes: Pupils equal round and reactive to light, extra-ocular motions intact. Lids and lashes normal. Conjunctiva and sclera are non-icteric and not injected. Cornea within normal limits. Periorbital areas with no swelling, redness, or edema. ENT: Nares patent. No nasal discharge, no septal abnormalities noted. Tympanic membranes are normal and external auditory canals are clear. Oropharynx with no redness, swelling, or masses, exudates, or evidence of obstruction, uvula midline. Mucous membranes moist. Neck: Trachea midline, no thyromegaly or masses palpated, and no cervical lymphadenopathy. Supple, full range of motion without nuchal rigidity, or vertebral point tenderness. No Meningismus. Chest/axilla: Normal chest wall appearance and motion. Nontender with no deformity. No lesions are appreciated. Respiratory: Lungs have equal breath sounds bilaterally, clear to auscultation and percussion. No rales, rhonchi or wheezes noted. No increased work of breathing, no retractions or nasal flaring. Abdomen/GI: Soft, non-tender, with normal bowel sounds. No distension or tympany. No guarding or rebound. No evidence of tenderness throughout. Back: No spinal tenderness. No costovertebral tenderness. Full range of motion. Male : Normal genitalia with no discharge or lesions. Skin: Warm, dry with normal turgor. Normal color with no rashes, no lesions, and no evidence of cellulitis. MS/ Extremity: Pulses equal, no cyanosis. Neurovascular intact. Full, normal range of motion. Neuro: Awake and alert, GCS 15, oriented to person, place, time, and situation. Cranial nerves II-XII grossly intact. Motor strength 5/5 in all extremities. Sensory grossly intact. Cerebellar exam normal. Normal gait. Psych: Awake, alert, with orientation to person, place and time. Behavior, mood, and affect are within normal limits. 04:13 Cardiovascular: Rate: tachycardic, Rhythm: regular, Pulses: Pulses are 4+ in bilateral radial, brachial, femoral, popliteal, posterior tibial and and dorsalis pedis arteries.. Heart sounds: normal, normal S1and S2, no S3 or S4, no murmur, no rub, no gallop, Edema: is not appreciated, JVD: is not appreciated. Vital Signs: 04:00 BP 123 / 81; Pulse 112; Resp 17; Pulse Ox 99% on R/A; rv 04:07 BP 123 / 81; Pulse 115; Resp 18 S; Temp 98.6(O); Pulse Ox 98% on R/A; Weight 79.38 kg bb (R); Height 5 ft. 11 in. (180.34 cm) (R); Pain 0/10; 05:00 BP 144 / 89; Pulse 111; Resp 16; Pulse Ox 100% on R/A; rv 06:00 BP 150 / 94; Pulse 112; Resp 17; Pulse Ox 99% on R/A; rv 07:26 BP 151 / 95; Pulse 108; Resp 17; Pulse Ox 99% on R/A; tw2 08:39 BP 149 / 96; Pulse 106; Resp 17; Pulse Ox 99% on R/A; tw2 04:07 Body Mass Index 24.41 (79.38 kg, 180.34 cm) bb MDM: 04:02 Patient medically screened. [facility] 04:16 Differential diagnosis: Nonspecific abd pain, gastritis, cholecystitis, pancreatitis, kinza diverticulitis, viral gastroenteritis, gastroenteritis. Data reviewed: vital signs, nurses notes, lab test result(s), EKG, radiologic studies, plain films. Data interpreted: laboratory monitor: rate is 115 beats/min, rhythm is regular, Pulse oximetry: on room air. Test interpretation: by ED physician or midlevel provider: ECG, plain radiologic studies. Counseling: I had a detailed discussion with the patient and/or guardian regarding: the historical points, exam findings, and any diagnostic results supporting the discharge/admit diagnosis, lab results, radiology results, the need for further work-up and treatment in the hospital. 02/06 04:05 Order name: Basic Metabolic Panel; Complete Time: 05:39 [facility] 02/06 04:05 Order name: CBC with Diff; Complete Time: 04:45 [facility] 02/06 04:05 Order name: LFT's; Complete Time: 05:39 [facility] 02/06 04:05 Order name: Magnesium; Complete Time: 05:39 [facility] 02/06 04:05 Order name: NT PRO-BNP; Complete Time: 05:39 [facility] 02/06 04:05 Order name: Troponin (emerg Dept Use Only); Complete Time: 05:39 [facility] 02/06 04:05 Order name: Lipase; Complete Time: 05:39 [facility] 02/06 04:05 Order name: Blood Culture Adult (2) 02/06 04:05 Order name: Lactate; Complete Time: 05:39 [facility] 02/06 04:05 Order name: ABG; Complete Time: 04:45 [facility] 02/06 07:35 Order name: Glucose, Ancillary Testing; Complete Time: 07:38 EDMS 02/06 08:13 Order name: Glucose, Ancillary Testing; Complete Time: 08:25 EDMS 02/06 08:38 Order name: Lactate Sepsis 2 HR Follow-up; Complete Time: 08:51 EDMS 02/06 04:05 Order name: XRAY Chest (1 view) kinza 02/06 04:05 Order name: EKG; Complete Time: 04:08 [facility] 02/06 04:05 Order name: Cardiac monitoring; Complete Time: 06:34 [facility] 02/06 04:05 Order name: EKG - Nurse/Tech; Complete Time: 06:55 [facility] 02/06 04:05 Order name: IV Saline Lock; Complete Time: 05:33 [facility] 02/06 04:05 Order name: Labs collected and sent; Complete Time: 05:33 [facility] 02/06 04:05 Order name: O2 Per Protocol; Complete Time: 05:33 [facility] 02/06 04:05 Order name: O2 Sat Monitoring; Complete Time: 05:33 [facility] 02/06 05:41 Order name: CT Abd/Pelvis - IV Contrast Only kinza Administered Medications: 04:58 Drug: NS 0.9% 1000 ml Route: IV; Rate: 1 bolus; Site: left antecubital; jb4 07:40 Follow up: Response: No adverse reaction; IV Status: Completed infusion; IV Intake: tw2 1000ml 04:59 Drug: NS 0.9% 1000 ml Route: IV; Rate: 1 bolus; Site: left antecubital; jb4 07:34 Follow up: Response: No adverse reaction; IV Status: Completed infusion; IV Intake: tw2 1000ml 06:12 Drug: Rocephin 1 grams Route: IV; Rate: per protocol; Site: left antecubital; rv 07:40 Drug: NS 0.9% 500 ml Route: IV; Rate: bolus; Site: left antecubital; tw2 08:39 Follow up: Response: No adverse reaction; IV Status: Completed infusion; IV Intake: tw2 500ml 08:03 Drug: Flagyl 500 mg Volume: 100 ml; Route: IVPB; Rate: 200 ml/hr; Infused Over: 30 tw2 mins; Site: left antecubital; 08:38 Follow up: Response: No adverse reaction; IV Status: Completed infusion tw2 08:38 Drug: NS 0.9% 1000 ml Route: IV; Rate: 150 ml/hr; Site: left antecubital; tw2 09:00 Follow up: Response: No adverse reaction; IV Status: Order to discontinue infusion tw2 Point of Care Testing: Blood Glucose: 07:26 Blood Glucose: 66 mg/dL; tw2 08:03 Blood Glucose: 89 mg/dL; tw2 07:26 provider notified, md requests PO juice at this time, pt agreeable. tw2 08:[address] Velazco at bedside at this time. tw2 Ranges: Critical Glucose Levels:Adult <50 mg/dl or >400 mg/dl <40 mg/dl or >180 mg/dl Disposition: 02/07/20 08:51 Discharged to Home. Impression: Type 1 diabetes mellitus, Other and unspecified noninfective gastroenteritis and colitis - mild ascending colon colitis, Vomiting. - Condition is Stable. - Discharge Instructions: Type 1 Diabetes Mellitus, Diagnosis, Adult, Nausea and Vomiting, Adult, Nausea and Vomiting, Adult, [id number], Diabetes Mellitus and Food, Type 1 Diabetes Mellitus, Self Care, Adult, Type 1 Diabetes Mellitus, Self Care, Adult, [id number]. - Prescriptions for Flagyl 500 mg Oral Tablet - take 1 tablet by ORAL route every 8 hours for 7 days; 21 tablet. Zofran 4 mg Oral Tablet - take 1 tablet by ORAL route every 12 hours As needed; 20 tablet. Cipro 500 mg Oral Tablet - take 1 tablet by ORAL route every 12 hours for 7 days; 14 tablet. - Medication Reconciliation Form, Thank You Letter, Antibiotic Education, Prescription Opioid Use form. - Follow up: Private Physician; When: 2 - 3 days; Reason: Recheck today's complaints, Continuance of care, Re-evaluation by your physician. Follow up: Mohinder Cabello; When: 2 - 3 days; Reason: Recheck today's complaints, Re-evaluation by your physician. - Problem is new. - Symptoms have improved. Signatures: Dispatcher [employer] EDMS Sabas Velazco MD MD cha Rittger, Kevin, MD MD kdr Zahira Garcia RN RN bb Aspen Draper RN RN tw2 Jermaine Wolf, RN RN jb4 Aristides Sierra RN RN rv Corrections: (The following items were deleted from the chart) 09:02 08:51 02/07/2020 08:51 Discharged to Home. Impression: Type 1 diabetes mellitus; Other tw2 and unspecified noninfective gastroenteritis and colitis - mild ascending colon colitis; Vomiting. Condition is Stable. Discharge Instructions: Type 1 Diabetes Mellitus, Diagnosis, Adult, Nausea and Vomiting, Adult, Nausea and Vomiting, Adult, [id number], Diabetes Mellitus and Food, Type 1 Diabetes Mellitus, Self Care, Adult, Type 1 Diabetes Mellitus, Self Care, Adult, [id number]. Prescriptions for Flagyl 500 mg Oral Tablet - take 1 tablet by ORAL route every 8 hours for 7 days; 21 tablet, Zofran 4 mg Oral Tablet - take 1 tablet by ORAL route every 12 hours As needed; 20 tablet, Cipro 500 mg Oral Tablet - take 1 tablet by ORAL route every 12 hours for 7 days; 14 tablet. and Forms are Medication Reconciliation Form, Thank You Letter, Antibiotic Education, Prescription Opioid Use. Follow up: Private Physician; When: 2 - 3 days; Reason: Recheck today's complaints, Continuance of care, Re-evaluation by your physician. Follow up: Mohinder Cabello; When: 2 - 3 days; Reason: Recheck today's complaints, Re-evaluation by your physician. Problem is new. Symptoms have improved. kdr
--- NOTE | 2020-02-07 09:13 | RAD REPORT ---
EXAM DESCRIPTION: Lucio Single View02/07/2020 4:29 am CLINICAL HISTORY: Cough COMPARISON: 2019 FINDINGS: The lungs appear clear of acute infiltrate. The heart is normal size IMPRESSION: No acute abnormalities displayed
[2020-02-07 10:11] VITALS: TEMP 98.6
[2020-02-07 10:21] VITALS: O2SAT 99
[2020-02-07 10:24] VITALS: BP 149/96
--- NOTE | 2020-02-07 10:25 | RAD REPORT ---
EXAM DESCRIPTION: CT - Abdomen Pelvis W Contrast - 02/07/2020 6:58 am CLINICAL HISTORY: Abdominal pain. COMPARISON: CT abdomen and pelvis 10/14/2018. TECHNIQUE: Axial CT imaging of the abdomen and pelvis performed with intravenous contrast. Reformatt ed coronal and sagittal images reviewed. A dose reduction technique was utilized with automated exposure control according to patient size. FINDINGS: Lung bases are clear. Heart is normal in size. Liver is enlarged to approximately 20 cm. No liver mass or biliary dilatation. Normal gallbladder. Mi ld splenic enlargement of 13.4 cm. Normal pancreas. Normal adrenal glands. Both kidneys demonstrate n ormal enhancement with symmetric excretion of contrast. Normal caliber aorta and inferior vena cava. No adenopathy. Mesenteric vessels appear normal. Unremarkable stomach. Small bowel loops appear normal. Normal appendix in the right lower quadrant. M ild thickening of the ascending colon. Unremarkable remaining colon. No ascites. No free air. Tiny fa t-containing umbilical hernia. Normal bladder and prostate. No pelvic free fluid or lymphadenopathy. Normal lumbar lordosis. Vertebr al body and disc space height are within normal limits. There is a right L5 pars defect without sublu xation. Lower thoracic endplate Schmorl's nodes are present. Bony pelvis and hips are unremarkable. IMPRESSION: 1. Hepatosplenomegaly. 2. Mild colitis involving the ascending colon. 3. 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 Electronically signed by: Brittany Thapa DO 02/07/2020 6:46 AM CDT Due to temporary technical issues with the PACS/Fluency reporting system, reports are being signed by the in house radiologist without review as a courtesy to ensure prompt reporting. The interpreting r adiologist is fully responsible for the content of the report.
--- NOTE | 2020-02-11 16:13 | EKG ---
Test Date: 2020-02-07 Test Time: 06:51:34 Inorganic Chemistry Teacher: GAIL MEASUREMENT RESULTS: Intervals: Rate: 109 IN: 150 QRSD: 80 QT: 314 QTc: 422 [place]: P: 50 IN: 150 QRS: 51 T: 13 INTERPRETIVE STATEMENTS: Sinus tachycardia Anterior infarct, age undetermined Abnormal ECG Compared to ECG 08/06/2019 21:13:42 Myocardial infarct finding now present Sinus rhythm no longer present T-wave abnormality no longer present Electronically Signed On 02-11-20 16:08:41 CDT by Robson Dasilva
== END 2020-02-07 09:02 | disposition home or self-care (01) ==
LOC: ER 03:57
DX: K52.9 Noninfective gastroenteritis and colitis, unspecified (principal); E10.9 Type 1 diabetes mellitus without complications; F90.9 Attention-deficit hyperactivity disorder, unspecified type
CPT/HCPCS: 36415; 71045; 74177; 80048; 80076; 82805; 82947; 83605; 83690; 83735; 83880; 84484; 85025; 87040; 93005; 96361; 96365; 96375; 99284; J0696; J7030; Q9967

== ENCOUNTER 2020-03-08 06:17 | Inpatient (IN) | payer SELFPAY ==
--- OUTSIDE RECORDS SUMMARY | 2020-03-08 06:19 | XMS REPORT | Clinical Summary ---
:1990 Author Organization [facility] Address [address] [place] [address] Care Team Providers Name Role Phone Pcp, [...] Signs Not on file Plan of Treatment Health Maintenance Due Date Last Done Comments PNEUMOCOCCAL VACCINE 0-64 YRS (1 of 1 - PPSV23) 1996 DIABETIC EYE EXAM 2000 URINE MICROALBUMIN 2000 LIPID PANEL 2010 HEMOGLOBIN A1C 01/14/2019 10/14/2018 INFLUENZA VACCINE (#1) 2019 Results Not on fileafter 03/08/2019 Advance Directives For more information, please contact: [phone] Code Status Date Activated Date Inactivated Comments Full Code 10/14/2018 3:52 PM 10/18/2018 2:17 PM This code status was determined by: Patient
--- OUTSIDE RECORDS SUMMARY | 2020-03-08 06:20 | XMS REPORT | Continuity of Care Document ---
:1990 Author Organization [facility] Travell[facility] Care Team Providers Name Role Phone [facility] Milo Crandall Unavailable Un available Problems Problem Status Onset Classification Date Comments Sourc e Date Reported Strain of 11/26/2016 [place] muscle, 7 fascia and tendon at neck level, initial encounter ACCIDENT Active [facility] 7 [place] Diabetes Resolved Problem 11/26/2016 [place] mellitus (disorder) Medications Medication Details Route Status Patient Ordering Order Source Instructions Provider Date Cyclobenzaprine 10 mg, PO, Active hydrochloride 10 TID, PRN 017 [place] Oral Tablet Muscle [Flexeril] Spasm, X 10 day, # 30 tab, 0 Refill(s) Motrin 800 mg oral 800 mg = 1 Active tablet tab, PO, 017 [place] TID, X 7 day, # 21 tab, [...] Source Temperature Oral (F) 98.2 F 11/24/2016 [facility] Heart Rate 88 11/24/2016 [facility] Respitory Rate 16 11/24/2016 [facility] Systolic (mm Hg) 117 11/24/2016 [facility] Diastolic (mm Hg) 75 11/24/2016 Steffi hidalgo BMI Calculated 26.6 11/24/2016 [facility] Height 177.8 cm 11/24/2016 [facility] Weight 84.091 11/24/2016 [facility] Respitory Rate 18 11/24/2016 [facility] Heart Rate 91 11/24/2016 [facility] Systolic (mm Hg) 118 11/24/2016 [facility] Diastolic (mm Hg) 76 11/24/2016 [place] Temperature Oral (F) 98.1 F 11/24/2016 Gadiel thomas Encounters Location Location Encounter Encounter Reason Attending ADM DC Stat us Source Details Type Number For Provider Date Date [facility] [id number] [place] 11/24 11/24 [place] [facility]2016 [facility] Procedures Procedure Code Date Perfomer Comments Source Removal of [id number] [facility] silastic tubes from ear Assessment and Plan No Data Provided for This Section Plan of Care No Data Provided for This Section Social History Social History Date Source Social History TypeResponse 11/24/2016 [facility] Smoking Status Never smoker; Exposure to Tobacco Smoke None; Cigarette Smoking Last 365 Days No; Reg Smoking Cessation Counseling No Family History No Data Provided for This Section Advance Directives No Data Provided for This Section Functional Status No Data Provided for This Section
--- OUTSIDE RECORDS SUMMARY | 2020-03-08 06:22 | XMS REPORT | Summary of Care ---
:1990 Author Organization [facility] - [facility] Address [address] [place] [address] Care Team Providers Name Role Phone Meggan Ray MD Primary Care Provider Reason for Referral Radiology Services (Routine) Status Reason Specialty Diagnoses / Referred By Referred To Procedures Contact Contact New Request Diagnostic Diagnoses Closed displaced fracture of shaft of fourth metacarpal bone of right hand, initial encounter Isaias Rae Radiology Procedures XR HAND 3+ VW RIGHT Elvira MD [address] [place] [address] Reason for Visit Reason Comments Follow-up Closed displaced fracture of shaft of fourth metacarpal bone of right hand 01/30/2020 - 3 weeks 5 days Encounter Details Date Type Department Care Team Description 02/25/2020 Office Visit [facility] Orthopaedic Jose Tenorio C losed displaced Surgery- [place] PAC fracture of shaft of [address] fourth metacarpal bone [address]rique C [place], [place] [address] [place], [place] encounter (Primary Dx) [phone] Allergies No Known Allergiesdocumented as of this encounter (statuses as of 02/25/2020) Medications Medication Sig Dispensed Refills Start Date [...] as of this encounter (statuses as of 02/25/2020) Active Problems Problem Noted Date Attention deficit hyperactivity disorder (ADHD) 2006 Overview: ICD10 Diagnosis Term Technology Services Manager Utility Uncontrolled type 1 diabetes mellitus 10/01/2005 Overview: Dx age 4 ICD10 Diagnosis Term Technology Services Manager Utility Trichomoniasis documented as of this encounter (statuses as of 02/25/2020) Resolved Problems Problem Noted Date Resolved Date DKA (diabetic ketoacidoses) 07/29/2015 01/29/2019 documented as of this encounter (statuses as of 02/25/2020) Immunizations Name Administration Dates Next Due Influenza [...] been in contact with No / Unsure 02/25/2020 9:09 AM UPPER MARKER someone who was confirmed or suspected to have Coronavirus / COVID-19? documented as of this encounter Last Filed Vital Signs Vital Sign Reading Time Taken Comments Blood Pressure 126/79 02/25/2020 9:10 AM UPPER MARKER Pulse 105 02/25/2020 9:10 AM UPPER MARKER Temperature - - Respiratory Rate - - Oxygen Saturation - - Inhaled Oxygen Concentration - - Weight 79.4 kg (175 lb) 02/25/2020 9:10 AM UPPER MARKER Height 180.3 cm (5' 11") 02/25/2020 9:10 AM UPPER MARKER Body Mass Index 24.41 02/25/2020 9:10 AM UPPER MARKER documented in this encounter Progress Notes Jose Tenorio, PAC - 02/25/2020 11:00 AM CST Cc: Chief Complaint Patient presents with Follow-up Closed displaced fracture of shaft of fourth metacarpal bone of right hand 01/30/2020 - 3 weeks 5 days Enio Bradley is a 29 year old male. Here for fracture mid fourth metacarpal date of injury 01/30/2020. We are following up on his fourthmetacarpal fracture he was scheduled for surgery at the surgery Center initially that was canceled and then rescheduled at the hospital he was not able to make his surgery at the hospital because he was hospitalized for DKA at another facility. [facility] but we are 3 weeks and 5 days from the date of fracture now he arrived today with his ulnar gutter splint. He was lifting up a wheelbarrow full of concrete adducted and had pain in his hand he didn't impact anything or make any direct trauma this is an activity that is done many times before. He felt a popin his hand and then "his knuckle was gone ". Seen in the emergency department of [facility] they did x-rays there found him to have a displaced fourth metacarpal fracture and placed him inan ulnar gutter splint referring him. Allergies Enio has No Known Allergies. Medications Outpatient Medications Prior to Visit Medication Sig Dispense Refill cephALEXin 500 mg capsule TAKE 1 CAPSULE BY MOUTH THREE TIMES DAILY 0 clindamycin 300 mg capsule TAKE 1 CAPSULE BY MOUTH THREE TIMES DAILY 0 insulin aspart (NOVOLOG FLEXPEN U-100 INSULIN SC) inject under the skin. Per sliding scale and carb intake Insulin Glargine (LANTUS SOLOSTAR U-100 INSULIN) 100 unit/mL (3 mL) injection inject 30-35 Unitsunder the skin 2 (two) times daily. mupirocin 2 % ointment APPLY ON THE SKIN TWICE A DAY 1 No facility-administered medications prior to visit. 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 Does [...] Negative. Endocrine: Endocrine negative Vital Signs BP 126/79 | Pulse 105 | Ht 71" (180.3 cm) | Wt [...] content normal. Nursing note and vitals reviewed. Right hand there is a depression of the fourth metacarpal phalangeal joint and shortening of his fourth finger in comparison to the others which is consistent with his x-ray findings of shortening of the fourth metacarpal Assessment/Plan 1. Closed displaced fracture of shaft of fourth metacarpal bone of right hand, initial encounter XRHAND 3+ VW RIGHT At this point there is a large amount of healing at the fracture site. His x- rays were reviewed with Dr. Rae. We will go into a TKO orthosis for 2 more weeks and then he can gradually increase activity from there if he has any functional difficulty with his hand we would have to do an osteotomyto extend the bone at a later date. R MARKER documented in this encounter Plan of Treatment [...] topic documented as of this encounter Results XR HAND 3+ VW RIGHT (02/25/2020 9:18 AM UPPER MARKER) Specimen Narrative Performed At This result has an attachment that is no t available. Comminuted fourth metacarpal fracture with shortening shows a large amount PACS of callus formation. Performing Organization Address City/State/Zipcode Phone Number PACS documented in this encounter Visit Diagnoses Diagnosis Closed displaced fracture of shaft of fo urth metacarpal bone of right hand, initial encounter - Primary documented in this encounter
--- OUTSIDE RECORDS SUMMARY | 2020-03-08 06:22 | XMS REPORT | Summary of Care ---
:1990 Author Organization [facility] - [facility] Address [address] [place] [address] Care Team Providers Name Role Phone Meggan Ray MD Primary Care Provider Reason for Visit Reason Comments Surgery Clearance Encounter Details Date Type Department Care Team Description 02/17/2020 Telephone [facility] Orthopaedic Felisa Tenorio, PAC Surgery Clearance Surgery- [place] [id number] [phone] Allergies No Known Allergiesdocumented as of this encounter (statuses as of 02/18/2020) Medications Medication Sig Dispensed Refills Start Date [...] as of this encounter (statuses as of 02/18/2020) Active Problems Problem Noted Date Attention deficit hyperactivity disorder (ADHD) 2006 Overview: ICD10 Diagnosis Term Extraction Machine Operator Utility Uncontrolled type 1 diabetes mellitus 10/01/2005 Overview: Dx age 4 ICD10 Diagnosis Term Extraction Machine Operator Utility Trichomoniasis documented as of this encounter (statuses as of 02/18/2020) Resolved Problems Problem Noted Date Resolved Date DKA (diabetic ketoacidoses) 07/29/2015 01/29/2019 documented as of this encounter (statuses as of 02/18/2020) Immunizations Name Administration Dates Next Due Influenza [...] this encounter Miscellaneous Notes Telephone Encounter - Edna Yañez - 02/18/2020 4:02 PM CDTPatient is aware that we will need the medical clearance in writing. He said he will get that to us. elephone Encounter - Jose Tenorio PAC - 02/17/2020 2:19 PM CDTWe need a written copy of the release letter from Dr. Sotolectronically signed by Jose Tenorio PAC at 02/17/2020 2:21 PM CDTTelephone Encounter - Edna Yañez - 02/17/2020 1:[address] Molina with [facility] called on 02/14/2020 and gave a medical clearance for patient to have surgery. He was going to send his medical records but they have not come through yet. documented in this encounter Plan of Treatment [...]
--- OUTSIDE RECORDS SUMMARY | 2020-03-08 06:22 | XMS REPORT | Summary of Care ---
:1990 Author Organization [facility] - [facility] Address [address] [place] [address] Care Team Providers Name Role Phone Meggan Ray MD Primary Care Provider Reason for Visit Reason Comments Surgery Clearance Encounter Details Date Type Department Care Team Description 02/21/2020 Telephone [facility] Orthopaedic Felisa Tenorio, PAC Surgery Clearance Surgery- [place] [id number] [phone] Allergies No Known Allergiesdocumented as of this [...] disorder (ADHD) 2006 Overview: ICD10 Diagnosis Term District Home Economics Agent Utility Uncontrolled type 1 diabetes mellitus 10/01/2005 Overview: Dx age 4 ICD10 Diagnosis Term District Home Economics Agent Utility Trichomoniasis documented as of this encounter [...] with No / Unsure 02/25/2020 9:09 AM BUNCHER OPERATOR someone who was confirmed or suspected to have Coronavirus / COVID-19? documented as of this encounter Last Filed Vital Signs Not on filedocumented in this encounter Miscellaneous Notes Telephone Encounter - Jose Tenorio PAC - 02/25/2020 3:46 PM CSTPatient seen in the office today he had very poorly managed diabetes and it has affected the time frame at which she could have surgery. elephone Encounter - Josey Serrato - 02/21/2020 4:00 PM CDTDanielbarry Bradley is a 29 year old male Patient is calling stating he has a few questions about his up-coming surgery. Would like to speak to Dr. Rae Thank you. Telephone Encounter - Edna Yañez - 02/21/2020 2:35 PM CDTWe received patient's written medical surgery release this afternoon at 2:22PM. What date and facility would you like to do his surgery? Procedure: ORIF of the right fourth carpal documented in this encounter Plan of Treatment Date Type Specialty Care Team Description 03/12/2020 Office Visit Orthopedic Surgery Nellie Rae MD [address] [phone] Health Maintenance Due Date Last Done Comments [...]
--- OUTSIDE RECORDS SUMMARY | 2020-03-08 06:22 | XMS REPORT | Summary of Care ---
:1990 Author Organization [facility] - [facility] Address [address] [place] [address] Care Team Providers Name Role Phone Meggan Ray MD Primary Care Provider Reason for Visit Reason Comments Appointment Encounter Details Date Type Department Care Team Description 02/09/2020 Telephone [facility] Orthopaedic Isaias Rae MD Appointment Surgery- [place] [address] [facility] [address] [facility], [place] [address] [place] [address] [phone] Allergies No Known Allergiesdocumented as of this encounter (statuses as of 02/12/2020) Medications Medication Sig Dispensed Refills Start Date [...] as of this encounter (statuses as of 02/12/2020) Active Problems Problem Noted Date Attention deficit hyperactivity disorder (ADHD) 2006 Overview: ICD10 Diagnosis Term Tablet Tester Utility Uncontrolled type 1 diabetes mellitus 10/01/2005 Overview: Dx age 4 ICD10 Diagnosis Term Tablet Tester Utility Trichomoniasis documented as of this encounter (statuses as of 02/12/2020) Resolved Problems Problem Noted Date Resolved Date DKA (diabetic ketoacidoses) 07/29/2015 01/29/2019 documented as of this encounter (statuses as of 02/12/2020) Immunizations Name Administration Dates Next Due Influenza [...] Telephone Encounter - Jose Tenorio PAC - 02/12/2020 1:32 PM CDTDrDavid Rae is aware that he is hospitalized at [facility] due to diabetic ketoacidosis. elephone Encounter - Silvana Neal - 02/11/2020 2:46 PM CDTI called patient he stated he is currently in the hospital. He will contact the office when he is released. (his surgery was cancelled due to high glucose levels. He was advised to contact anesthesia at [facility] to discuss his levels for surgery) elephone Encounter - Loretta Solo LVN - 02/10/2020 10:59 AM CDTRouted to [facility] elephone Encounter - Ellen Fairbanks - 02/09/2020 5:56 PM CDTEnio Mirna is a 29 year old male Edyta Mcmanus (says she is patients mother) is calling to inform the doctors that the patient is in the hospital today. Please call him to reschedule the appointment documented in this encounter Plan of Treatment [...]
--- OUTSIDE RECORDS SUMMARY | 2020-03-08 06:22 | XMS REPORT | Summary of Care ---
:1990 Author Organization [facility] Address [address] [place] [address] Care Team Providers Name Role Phone Meggan [...] Elvira MD [address] [place] [place] [address] Reason for Visit Reason Comments Follow-up Closed displaced fracture of shaft of fourth metacarpal bone of right hand 01/30/2020 - 3 weeks 5 days Encounter Details Date Type Department Care Team Description 02/25/2020 Office Visit [facility] Orthopaedic Jose Tenorio C losed displaced Surgery- [place] PAC fracture of shaft of [address] fourth metacarpal bone [address] Enrique C of right hand, [place] [address] [place], [place] encounter (Primary Dx) [phone] Allergies No Known Allergiesdocumented as of [...] disorder (ADHD) 2006 Overview: ICD10 Diagnosis Term Country Director Utility Uncontrolled type 1 diabetes mellitus 10/01/2005 Overview: Dx age 4 ICD10 Diagnosis Term Country Director Utility Trichomoniasis documented as of this encounter [...] with No / Unsure 02/25/2020 9:09 AM WARP TRUCKER someone who was confirmed or suspected to have Coronavirus / COVID-19? documented as of this encounter Last Filed Vital Signs Vital Sign Reading Time Taken Comments Blood Pressure 126/79 02/25/2020 9:10 AM WARP TRUCKER Pulse 105 02/25/2020 9:10 AM WARP TRUCKER Temperature - - Respiratory Rate - - Oxygen Saturation - - Inhaled Oxygen Concentration - - Weight 79.4 kg (175 lb) 02/25/2020 9:10 AM WARP TRUCKER Height 180.3 cm (5' 11") 02/25/2020 9:10 AM WARP TRUCKER Body Mass Index 24.41 02/25/2020 9:10 AM WARP TRUCKER documented in this encounter Progress Notes Jose [...] ". Seen in the emergency department of [facility] they did x-rays there found him to [...] Diagnosis Date Acute pancreatitis 03/01 hospitalized in [place] for ?pancreatitis, not clear of cause Diabetes with ketoacidosis 01/02/2006 Trichomoniasis Type I (juvenile type) diabetes mellitus without mention of complication, uncontrolled 10/01/2005 Dx age 4; multiple admissions for DKA, last was 06/29 at [place] Past Surgical History: Procedure Laterality Date TOOTH [...] file Gets together: Not on file Attends latter day service: Not on file Active member of [...] Mother and 2 brothers; planning on attending [employer] next year to study mechanical engineering. Does [...] extend the bone at a later date. TRUCKER documented in this encounter Plan of Treatment [...] HAND 3+ VW RIGHT (02/25/2020 9:18 AM WARP TRUCKER) Specimen Narrative Performed At This result has [...]
--- OUTSIDE RECORDS SUMMARY | 2020-03-08 06:22 | XMS REPORT | Continuity of Care Document ---
:1990 Author Organization [facility] t Address [address] [place] [address] Care Team Providers Name Role Phone Pcp Primary Care Physician Unavailable Doctor Unassigned, Name Attending Clinician Unavailable Butch GARZA L Attending Clinician Coby MERCADO S Attending Clinician INNA MARTINEZ Attending Clinician Unavailable Miriam Almonte Attending Clinician INNA MARTINEZ Admitting Clinician Unavailable Problems Condition Condition Condition Status Onset Resolution Last Treating Co mments Source Name Details Category Date Date Treatment Clinician Date Diabetic Diabetic Disease [facility] - is without is without 00:00: Ga dical coma coma 00 Center GI bleed GI bleed [facility] [place] Acidosis Acidosis Disease [facility] [place] ACCIDENT Diagnosis Active 2017-03-28 M emoria 11-22 13:59:00 l ACCIDENT 13:00: Ministerio n 00 Active 11/22/2016 Alva Calderon Diabetes Problem Resolve 2016-11-26 Me moria mellitus d 05:37:49 l (disorder) Diabetes He maddisonann mellitus (disorder) Resolved Problem 11/26/2016 MAGAN Ledbetter Strain of Problem 2016-11-26 2016-11-26 Memoria muscle, 11-23 05:37:49 05:37:49 l fascia and Strain 05:00: Herm phyllis tendon at of muscle, 00 neck fascia and level, tendon at initial neck encounter level, initial encounter 11/23/2016 11/26/2016 [facility] Allergies, Adverse Reactions, Alerts This patient has no known allergies or adverse reactions. Social History Social Habit Start Date Stop Date Quantity Comments Source Sex Assigned At [facility] Smoking Status Start Date Stop Date Source Social History [facility] Medications Ordered Filled Start Stop Current Ordering Indication Dosage Frequency Signature Comments Components Source Medication Medication Date Date Medication? Clinician (SIG) Name Name insulin Yes 30U Q.5D Inject [facility] glargine 10-18 30-35 [facility] - (LANTUS) 12:16: Units Medical 100 unit/mL [...] PO, l tablet 02:13: TID, X 7 Lipan 00 day, # 21 tab, 0 Refill(s) Vital Signs Vital Name Observation Time Observation Value Comments Source Temperature Oral (F) 2016-11-24 03:00:00 98.2 F [facility] Heart Rate 2016-11-24 03:00:00 [facility] K[facility] Respitory Rate 2016-11-24 03:00:00 iNk al Lipan Systolic (mm Hg) 2016-11-24 03:00:00 Praneeth rial Kvng Diastolic (mm Hg) 2016-11-24 03:00:00 Mem orial Kvng BMI Calculated 2016-11-24 01:48:00 [facility] Height 2016-11-24 01:48:00 177.8 cm [facility] Weight 2016-11-24 01:48:00 [facility] Lipan Respitory Rate 2016-11-24 01:48:00 [facility] al Lipan Heart Rate 2016-11-24 01:48:00 [facility] Systolic (mm Hg) 2016-11-24 01:48:00 Praneeth riakelle Kvng Diastolic (mm Hg) 2016-11-24 01:48:00 Mem orial Kvng Temperature Oral (F) 2016-11-24 01:48:00 [facility].1 [facility] Procedures Procedure Date / Time Performed Performing Clinician [facility] e Removal of silastic tubes Nik Spicer from ear Plan of Care Planned Activity Planned Date Details Comments Source Future Scheduled 2019-12-24 INFLUENZA VACCINE (#1) [facility] [code = INFLUENZA Medical Ce nter VACCINE (#1)] Future Scheduled 2019-01-[address] [facility] [address] [facility] - Test 00:00:00 measurement [facility] (procedure) [code = 21220671] Future Scheduled [address] [facility] - Test 00:00:00 (procedure) [code = Medical Center 34360816] Future Scheduled 2000 DIABETIC EYE EXAM [facility] Test 00:00:00 [code = DIABETIC EYE [facility] Center EXAM] Future Scheduled 2000 Urine screening for [facility] - Test 00:00:00 protein (procedure) Medical Center [code = 126992829] Future Scheduled [address] [facility] - Test 00:00:00 0-64 YRS (1 of 1 - Medical C enter PPSV23) [code = PNEUMOCOCCAL VACCINE 0-64 YRS (1 of 1 - PPSV23)] Encounters Start End Encounter Admission Attending Care Care Encounter Source Date/Time Date/Time Type Type Clinicians Facility Department ID 2020-03-04 2020-03-04 Orders Doctor KHANH [id number] 00:00:00 00:00:00 Only Unassigned, MARSHALL [id number] [facility] [id number] [id number] 2020-02-25 2020-02-25 [facility] Butch [facility] [id number] 09:18:37 23:59:00 Encounter [facility] [id number] Surgical 4.2.7.2.686 Specialti [id number] es [address] [place] 2020-02-25 2020-02-25 Office Coby [facility] [id number] 09:02:34 09:17:34 Visit [facility] [id number] Surgical 4.2.7.2.686 Specialti [id number] es [address] [place] 2020-02-21 2020-02-21 Telephone LIZ Tenorio [id number] 00:00:00 00:00:00 [facility] [id number] Surgical 4.2.7.2.686 Specialti [id number] es [address] [place] 2016-11-23 2016-11-23 Outpatient EULOGIO Almonte [facility] [id number] 20:46:00 22:02:00 Abdiwahab 00 Pineda Results Test Description Test Time Test Comments Results Result Comments Source BLOOD CULTURE 2018-10-20 02:01:00 Test Item Value Reference Range Interpretation Comme nts CULTURE (BEAKER) (test code = 1095) No growth in 5 days BLOOD [id number] 02:01:00 Test Item Value Reference Range Interpretation Comments CULTURE (BEAKER) (test No growth in 5 days code = 1095) MRSA [id number] 09:59:00 Test Item Value Reference Range Interpretation Comments CULTURE (BEAKER) (test code No MRSA isolated = 1095) TISSUE [id number] 15:35:00Surgical Pathology Report Case: [id number] Authorizing Provider: Won Randall MD Collected: 10/17/2018 0823 Ordering Location: [address] Received: 10/17/2018 1401 Service Pathologist: Natividad Shrestha MD Specimens: A) - Duodenum, random bx B) -Biopsy, Gastric, body and antrum A. DUODENUM , RANDOM BIOPSY- NO DIAGNOSTIC ALTERATIONB. STOMACH, BODY AND ANTRUM, BIOPSY- CHRONIC INACTIVE GASTRITIS, MILD- NO INTESTINAL METAPLASIA, DYSPLASIA OR INVASIVE CARCINOMA IDENTIIFIED- NO HELICOBACTER PYLORI LIKE ORGANISMS IDENTIFIED ON WARTHIN STARRY STAIN Signing Pathologist Direct Phone Line: [phone] signed by Natividad Shrestha MD on 10/18/2018 at 3:35 [id number] x 2, [id number] and postop diagnosis: intractable vomiting, presence of [...] evaluated Immunohistochemistry technical testing was performed at [facility], Pathology Laboratory where it was developed [...] to perform high complexity clinical laboratory testing.POCT-GLUCOSE [id number] 10:09:00 Test Item Value Reference Range Interpretation Comments POC-GLUCOSE METER 118 mg/dL 70-110 H TESTED AT [facility] 6720 ([facility]) (test code = CAROLA Roberson [facility] 1538) [address] [id number] 06:56:00 Test Item Value Reference Range Interpretation Comments MAGNESIUM (BEAKER) (test code = 2.0 mg/dL 1.6-2.6 627) BASIC METABOLIC [id number] 06:40:00 Test Item Value Reference Range Interpretation Comments SODIUM (BEAKER) 141 meq/L 136-145 (test code = 381) POTASSIUM (BEAKER) 3.4 meq/L 3.5-5.1 L (test code = 379) CHLORIDE (BEAKER) 106 meq/L 98-107 (test code = 382) CO2 (BEAKER) (test 28 meq/L 22-29 code = 355) BLOOD UREA NITROGEN 10 mg/dL 7-21 (BEAKER) (test code = 354) CREATININE ([facility]) 0.95 mg/dL 0.57-1.25 (test code = 358) GLUCOSE RANDOM 249 mg/dL 70-105 H ([facility]) (test code = 652) CALCIUM ([facility]) 8.5 mg/dL 8.4-10.2 (test code = 697) EGFR ([facility]) (test 94 mL/min/1.73 ESTIMA GUNNAR GFR IS code = 1092) sq m NOT ACCURATE CREATININE CLEARANCE IN PREDICTING GLOMERULAR FILTRATION RATE . ESTIMATED GFR I S NOT APPLICABLE FOR DIALYSIS PATIEN TS. POCT-GLUCOSE [id number] 20:40:00 Test Item Value Reference Range Interpretation Comments POC-GLUCOSE METER 172 mg/dL 70-110 H TESTED AT [place] [address] ([facility]) (test code = CARLOSYOSEF Roberson [facility] 1538) [address] POCT-GLUCOSE [id number] 18:25:00 Test Item Value Reference Range Interpretation Comments POC-GLUCOSE METER 200 mg/dL 70-110 H TESTED AT [place] [address] ([facility]) (test code = CAROLA Roberson [facility] 1538) 21482 POCT-GLUCOSE [id number] 15:26:00 Test Item Value Reference Range Interpretation Comments POC-GLUCOSE METER 232 mg/dL 70-110 H TESTED AT [place] [address] ([facility]) (test code = CAROLA Roberson [facility] 1538) [address]201 POCT-GLUCOSE [id number] 13:00:00 Test Item Value Reference Range Interpretation Comments POC-GLUCOSE METER 228 mg/dL 70-110 H TESTED AT [place] [address] ([facility]) (test code = CAROLA Roberson [facility] 1538) 23463 POCT-GLUCOSE [id number] 10:43:00 Test Item Value Reference Range Interpretation Comments POC-GLUCOSE METER 207 mg/dL 70-110 H TESTED AT [place] [address] ([facility]) (test code = CAROLA Roberson [facility] 1538) [address] POCT-GLUCOSE [id number] 09:16:00 Test Item Value Reference Range Interpretation Comments POC-GLUCOSE METER 269 mg/dL 70-110 H TESTED AT [place] [address] ([facility]) (test code = CAROLA Roberson [place] 1538) [address] POCT-GLUCOSE [id number] 07:26:00 Test Item Value Reference Range Interpretation Comments POC-GLUCOSE METER 239 mg/dL 70-110 H TESTED AT [facility] 6720 (BEAKER) (test code = CARLOA JJ 1538) [address] BASIC METABOLIC [id number] 06:42:00 Test Item Value Reference Range Interpretation [...] S NOT APPLICABLE FOR DIALYSIS PATIEN TS. [id number] 06:42:00 Test Item Value Reference Range Interpretation Comments PHOSPHORUS (BEAKER) (test code = 2.0 mg/dL 2.3-4.7 L 604) [id number] 06:42:00 Test Item Value Reference Range Interpretation Comments MAGNESIUM (BEAKER) (test code = 2.3 mg/dL 1.6-2.6 627) CBC W/PLT COUNT & AUTO [id number] 06:34:00 Test Item Value Reference Range Interpretation [...] PERCENT (BEAKER) (test code = 2801) POCT-GLUCOSE [id number] 22:23:00 Test Item Value Reference Range Interpretation Comments POC-GLUCOSE METER 237 mg/dL 70-110 H TESTED AT [facility] 6720 (BEAKER) (test code = CAROLA JJ 1538) [address] POCT-GLUCOSE [id number] 20:39:00 Test Item Value Reference Range Interpretation Comments POC-GLUCOSE METER 298 mg/dL 70-110 H TESTED AT [facility] 6720 (BEAKER) (test code = CAROLA Roberson [place] 1538) [address] POCT-GLUCOSE [id number] 17:49:00 Test Item Value Reference Range Interpretation Comments POC-GLUCOSE METER 255 mg/dL 70-110 H TESTED AT [place] [address] (BEAKER) (test code = CAROLA Roberson [place] 1538) [address] POCT-GLUCOSE [id number] 13:35:00 Test Item Value Reference Range Interpretation Comments POC-GLUCOSE METER 190 mg/dL 70-110 H TESTED AT [place] [address] (BEAKER) (test code = CAROLA Roberson [facility] 1538) 6[address] POCT-GLUCOSE [id number] 12:31:00 Test Item Value Reference Range Interpretation Comments POC-GLUCOSE METER 204 mg/dL 70-110 H TESTED AT [place] [address] (BEAKER) (test code = CAROLA Roberson [facility] 1538) [address]81 POCT-GLUCOSE [id number] 11:38:00 Test Item Value Reference Range Interpretation Comments POC-GLUCOSE METER 165 mg/dL 70-110 H TESTED AT [place] [address] (BEAKER) (test code = CAROLA Roberson [facility] 1538) 45158 POCT-GLUCOSE [id number] 10:35:00 Test Item Value Reference Range Interpretation Comments POC-GLUCOSE METER 231 mg/dL 70-110 H TESTED AT [place] [address] (BEAKER) (test code = CAROLA Roberson [facility] 1538) [address] BASIC METABOLIC [id number] 09:52:00 Test Item Value Reference Range Interpretation [...] S NOT APPLICABLE FOR DIALYSIS PATIEN TS. [id number] 09:52:00 Test Item Value Reference Range Interpretation Comments PHOSPHORUS (BEAKER) (test code = 2.0 mg/dL 2.3-4.7 L 604) [id number] 09:52:00 Test Item Value Reference Range Interpretation Comments MAGNESIUM (BEAKER) (test code = 2.2 mg/dL 1.6-2.6 627) POCT-GLUCOSE [id number] 09:28:00 Test Item Value Reference Range Interpretation Comments POC-GLUCOSE METER 213 mg/dL 70-110 H TESTED AT [place] [address] ([facility]) (test code = CAROLA Roberson [facility] 1538) [address] RAD, ABDOMEN/KUB, 1 VIEW [id number] 09:12:00Reason for exam:->recurrent vomitingShould this be performed [...] MDReport Verified Date/Time: 10/16/2018 09:12:50 Reading Location: [facility] Radiology Reading Room POCT-GLUCOSE [id number] 08:41:00 Test Item Value Reference Range Interpretation Comments POC-GLUCOSE METER 206 mg/dL 70-110 H TESTED AT [place] [address] ([facility]) (test code = CAROLA Roberson [facility] 1538) 12878 POCT-GLUCOSE [id number] 07:46:00 Test Item Value Reference Range Interpretation Comments POC-GLUCOSE METER 203 mg/dL 70-110 H TESTED AT [facility] 6720 (BEAKER) (test code = [place] 1538) [address] [id number] 07:14:00 Test Item Value Reference Range Interpretation Comments MAGNESIUM (BEAKER) 2.2 mg/dL 1.6-2.6 Specimen slightly (test code = 627) hemolyzed [id number] 07:14:00 Test Item Value Reference Range Interpretation Comments PHOSPHORUS (BEAKER) 2.4 mg/dL 2.3-4.7 Specimen slightly (test code = 604) hemolyzed BASIC METABOLIC [id number] 07:14:00 Test Item Value Reference Range Interpretation [...] APPLICABLE FOR DIALYSIS PATIEN TS. LACTIC ACID, [id number] 06:58:00 Test Item Value Reference Range Interpretation Comments LACTATE BLOOD ARTERIAL (2) 1.0 mmol/L 0.5-2.2 (BEAKER) (test code = 2874) CBC W/PLT COUNT & AUTO [id number] 06:47:00 Test Item Value Reference Range Interpretation [...] (BEAKER) (test code = 2801) HEMOGLOBIN AND [id number] 06:42:00 Test Item Value Reference Range Interpretation Comments HEMOGLOBIN (BEAKER) (test code = 11.2 GM/DL 13.7-17.5 L 410) HEMATOCRIT (BEAKER) (test code = 33.1 % 40.1-51.0 L 411) POCT-GLUCOSE [id number] 06:22:00 Test Item Value Reference Range Interpretation Comments POC-GLUCOSE METER 193 mg/dL 70-110 H TESTED AT [place] [address] ([facility]) (test code = [place] 1538) [address] POCT-GLUCOSE [id number] 05:31:00 Test Item Value Reference Range Interpretation Comments POC-GLUCOSE METER 185 mg/dL 70-110 H TESTED AT [place] [address] ([facility]) (test code = CAR[place] 1538) [address] POCT-GLUCOSE [id number] 04:02:00 Test Item Value Reference Range Interpretation Comments POC-GLUCOSE METER 191 mg/dL 70-110 H TESTED AT [place] [address] ([facility]) (test code = [place] 1538) [address] POCT-GLUCOSE [id number] 03:08:00 Test Item Value Reference Range Interpretation Comments POC-GLUCOSE METER 170 mg/dL 70-110 H TESTED AT [place] [address] ([facility]) (test code = CARLOSYOSEF [place] 1538) [address] POCT-GLUCOSE [id number] 02:24:00 Test Item Value Reference Range Interpretation Comments POC-GLUCOSE METER 155 mg/dL 70-110 H TESTED AT [place] [address] ([facility]) (test code = CARLOSYOSEF Roberson [place] 1538) [address] POCT-GLUCOSE [id number] 01:43:00 Test Item Value Reference Range Interpretation Comments POC-GLUCOSE METER 158 mg/dL 70-110 H [facility] AT [place] [address] [facility] (test code = CAROLA Roberson [place] 1538) [address] BASIC METABOLIC [id number] 00:59:00 Test Item Value Reference Range Interpretation [...] S NOT APPLICABLE FOR DIALYSIS PATIEN TS. [id number] 00:58:00 Test Item Value Reference Range Interpretation Comments MAGNESIUM (BEAKER) 2.4 mg/dL 1.6-2.6 Specimen slightly (test code = 627) hemolyzed [id number] 00:58:00 Test Item Value Reference Range Interpretation Comments PHOSPHORUS (BEAKER) 1.6 mg/dL 2.3-4.7 L Specimen slightly (test code = 604) hemolyzed HEMOGLOBIN AND [id number] 00:31:00 Test Item Value Reference Range Interpretation Comments HEMOGLOBIN (BEAKER) (test code = 11.9 GM/DL 13.7-17.5 L 410) HEMATOCRIT (BEAKER) (test code = 34.5 % 40.1-51.0 L 411) POCT-GLUCOSE [id number] 00:30:00 Test Item Value Reference Range Interpretation Comments POC-GLUCOSE METER 188 mg/dL 70-110 H [facility] AT [place] [address] [facility] (test code = [place] 1538) [address] POCT-GLUCOSE [id number] 23:07:00 Test Item Value Reference Range Interpretation Comments POC-GLUCOSE METER 191 mg/dL 70-110 H TESTED AT [place] [address] ([facility]) (test code = [place] 1538) [address] POCT-GLUCOSE [id number] 22:03:00 Test Item Value Reference Range Interpretation Comments POC-GLUCOSE METER 205 mg/dL 70-110 H TESTED AT [place] [address] ([facility]) (test code = [facility] 1538) [address] BASIC METABOLIC [id number] 21:06:00 Test Item Value Reference Range Interpretation [...] APPLICABLE FOR DIALYSIS PATIEN TS. VANCOMYCIN LEVEL, [id number] 21:04:00 Test Item Value Reference Range Interpretation Comments [facility] TROUGH [facility] (test 5.8 ug/mL 10.0-20.0 L code = 522) If level is >20, hold scheduled vancomycin dose and contact PharmD/MD. Thank youPOCT-GLUCOSE [id number] 21:00:00 Test Item Value Reference Range Interpretation Comments POC-GLUCOSE METER 202 mg/dL 70-110 H TESTED AT [place] [address] ([facility]) (test code = [facility] 1538) [address] POCT-GLUCOSE [id number] 20:08:00 Test Item Value Reference Range Interpretation Comments POC-GLUCOSE METER 180 mg/dL 70-110 H TESTED AT [place] [address] ([facility]) (test code = [facility] 1538) [address]86 POCT-GLUCOSE [id number] 18:39:00 Test Item Value Reference Range Interpretation Comments POC-GLUCOSE METER 175 mg/dL 70-110 H TESTED AT [place] [address] ([facility]) (test code = [facility] 1538) 6[address] POCT-GLUCOSE [id number] 17:22:00 Test Item Value Reference Range Interpretation Comments POC-GLUCOSE METER 209 mg/dL 70-110 H TESTED AT [facility] 6720 (BEAKER) (test code = CAROLA Roberson [place] 1538) [address] URINALYSIS W/ REFLEX URINE [id number] 16:58:00 Test Item Value Reference Range Interpretation [...] SOURCE(BEAKER) (test code = 2795) HEMOGLOBIN AND [id number] 16:36:00 Test Item Value Reference Range Interpretation Comments HEMOGLOBIN (BEAKER) (test code = 13.0 GM/DL 13.7-17.5 L 410) HEMATOCRIT (BEAKER) (test code = 37.3 % 40.1-51.0 L 411) POCT-GLUCOSE [id number] 16:20:00 Test Item Value Reference Range Interpretation Comments POC-GLUCOSE METER 217 mg/dL 70-110 H TESTED AT [facility] 6720 (BEAKER) (test code = CAROLA Roberson [place] 1538) [address] BASIC METABOLIC [id number] 16:19:00 Test Item Value Reference Range Interpretation [...] S NOT APPLICABLE FOR DIALYSIS PATIEN TS. [id number] 16:15:00 Test Item Value Reference Range Interpretation Comments PHOSPHORUS (BEAKER) (test code = 3.4 mg/dL 2.3-4.7 604) [id number] 16:15:00 Test Item Value Reference Range Interpretation Comments MAGNESIUM (BEAKER) (test code = 2.1 mg/dL 1.6-2.6 627) POCT-GLUCOSE [id number] 15:13:00 Test Item Value Reference Range Interpretation Comments POC-GLUCOSE METER 205 mg/dL 70-110 H TESTED AT [place] [address] (BEAKER) (test code = CAROLA Roberson [facility] 1538) [address] POCT-GLUCOSE [id number] 14:17:00 Test Item Value Reference Range Interpretation Comments POC-GLUCOSE METER 154 mg/dL 70-110 H TESTED AT [facility] 67 [facility] (test code = CAROLA Roberson [facility] 1538) 327[address] POCT-GLUCOSE [id number] 13:34:00 Test Item Value Reference Range Interpretation Comments POC-GLUCOSE METER 144 mg/dL 70-110 H TESTED AT [place] [address] [facility] (test code = CAROLA Roberson [facility] 1538) 26267 BASIC METABOLIC [id number] 12:52:00 Test Item Value Reference Range Interpretation [...] S NOT APPLICABLE FOR DIALYSIS PATIEN TS. [id number] 12:45:00 Test Item Value Reference Range Interpretation Comments PHOSPHORUS (BEAKER) (test code = 1.8 mg/dL 2.3-4.7 L 604) [id number] 12:45:00 Test Item Value Reference Range Interpretation Comments MAGNESIUM (BEAKER) (test code = 2.4 mg/dL 1.6-2.6 627) BLOOD GAS, [id number] 12:26:00 Test Item Value Reference Range Interpretation [...] code = 1819) 21.0 % HEMOGLOBIN AND [id number] 12:24:00 Test Item Value Reference Range Interpretation Comments HEMOGLOBIN (BEAKER) (test code = 11.9 GM/DL 13.7-17.5 L 410) HEMATOCRIT (BEAKER) (test code = 34.2 % 40.1-51.0 L 411) POCT-GLUCOSE [id number] 12:23:00 Test Item Value Reference Range Interpretation Comments POC-GLUCOSE METER 170 mg/dL 70-110 H TESTED AT [place] [address] (BEAKER) (test code = CAROLA Roberson [facility] 1538) 55338 POCT-GLUCOSE [id number] 10:54:00 Test Item Value Reference Range Interpretation Comments POC-GLUCOSE METER 182 mg/dL 70-110 H TESTED AT [place] [address] (BEAKER) (test code = CAROLA Roberson [facility] 1538) 19248 BASIC METABOLIC [id number] 09:55:00 Test Item Value Reference Range Interpretation [...] NOT APPLICABLE FOR DIALYSIS PATIEN TS. POCT-GLUCOSE [id number] 09:44:00 Test Item Value Reference Range Interpretation Comments POC-GLUCOSE METER 217 mg/dL 70-110 H TESTED AT [place] [address] (BEAKER) (test code = [facility] 1538) [address] BLOOD GAS, [id number] 08:28:00 Test Item Value Reference Range Interpretation [...] (test code = 1819) 21.0 % POCT-GLUCOSE [id number] 08:24:00 Test Item Value Reference Range Interpretation Comments POC-GLUCOSE METER 207 mg/dL 70-110 H TESTED AT [place] [address] ([facility]) (test code = [facility] 1538) 9[address] POCT-GLUCOSE [id number] 06:39:00 Test Item Value Reference Range Interpretation Comments POC-GLUCOSE METER 203 mg/dL 70-110 H TESTED AT [place] [address] ([facility]) (test code = [facility] 1538) 17342 BASIC METABOLIC [id number] 06:37:00 Test Item Value Reference Range Interpretation [...] NOT APPLICABLE FOR DIALYSIS PATIEN TS. POCT-GLUCOSE [id number] 05:26:00 Test Item Value Reference Range Interpretation Comments POC-GLUCOSE METER 253 mg/dL 70-110 H TESTED AT [facility] 6720 (BEAKER) (test code = [place] 1538) [address] BASIC METABOLIC [id number] 05:07:00 Test Item Value Reference Range Interpretation [...] S NOT APPLICABLE FOR DIALYSIS PATIEN TS. [id number] 05:07:00 Test Item Value Reference Range Interpretation Comments MAGNESIUM (BEAKER) (test code = 2.0 mg/dL 1.6-2.6 627) [id number] 05:07:00 Test Item Value Reference Range Interpretation Comments PHOSPHORUS (BEAKER) (test code = 2.8 mg/dL 2.3-4.7 604) BLOOD GAS, [id number] 05:01:00 Test Item Value Reference Range Interpretation [...] code = 1819) 21.0 % LACTIC ACID, [id number] 04:58:00 Test Item Value Reference Range Interpretation Comments LACTATE BLOOD ARTERIAL (2) 0.6 mmol/L 0.5-2.2 (BEAKER) (test code = 2874) CBC W/PLT COUNT & AUTO [id number] 04:57:00 Test Item Value Reference Range Interpretation [...] PERCENT (BEAKER) (test code = 2801) POCT-GLUCOSE [id number] 04:20:00 Test Item Value Reference Range Interpretation Comments POC-GLUCOSE METER 220 mg/dL 70-110 H TESTED AT [place] [address] ([facility]) (test code = [facility] 1538) [address] POCT-GLUCOSE [id number] 03:44:00 Test Item Value Reference Range Interpretation Comments POC-GLUCOSE METER 243 mg/dL 70-110 H TESTED AT [place] [address] ([facility]) (test code = [facility] 1538) [address] POCT-GLUCOSE [id number] 03:06:00 Test Item Value Reference Range Interpretation Comments POC-GLUCOSE METER 196 mg/dL 70-110 H TESTED AT [place] [address] ([facility]) (test code = [facility] 1538) [address] TROPONIN [id number] 03:00:00 Test Item Value Reference Range Interpretation Comments TROPONIN I ([facility]) (test code = 0.02 ng/mL 0.00-0.03 397) [...] acute neurological disease, and persistent tachyarrhythmia.BASIC METABOLIC [id number] 02:57:00 Test Item Value Reference Range Interpretation [...] NOT APPLICABLE FOR DIALYSIS PATIEN TS. POCT-GLUCOSE [id number] 01:21:00 Test Item Value Reference Range Interpretation Comments POC-GLUCOSE METER 195 mg/dL 70-110 H TESTED AT [facility] 6720 ([facility]) (test code = [place] 1538) [address] TROPONIN [id number] 00:47:00 Test Item Value Reference Range Interpretation [...] failure, acidosis, acute neurological disease, and persistent tachyarrhythmia.[id number] 00:44:00 Test Item Value Reference Range Interpretation Comments PHOSPHORUS (BEAKER) (test code = 1.4 mg/dL 2.3-4.7 LL 604) BLOOD GAS, [id number] 00:41:00 Test Item Value Reference Range Interpretation [...] code = 1819) 21.0 % BASIC METABOLIC [id number] 00:40:00 Test Item Value Reference Range Interpretation [...] S NOT APPLICABLE FOR DIALYSIS PATIEN TS. [id number] 00:40:00 Test Item Value Reference Range Interpretation Comments MAGNESIUM (BEAKER) (test code = 2.1 mg/dL 1.6-2.6 627) HEMOGLOBIN AND [id number] 00:21:00 Test Item Value Reference Range Interpretation Comments HEMOGLOBIN (BEAKER) (test code = 12.3 GM/DL 13.7-17.5 L 410) HEMATOCRIT (BEAKER) (test code = 34.9 % 40.1-51.0 L 411) POCT-GLUCOSE [id number] 00:09:00 Test Item Value Reference Range Interpretation Comments POC-GLUCOSE METER 234 mg/dL 70-110 H TESTED AT [facility] 67[address] ([facility]) (test code = [facility] 1538) [address] STREP PNEUMONIAE [id number] 00:07:00 Test Item Value Reference Range Interpretation [...] detection limit of the test. LEGIONELLA ANTIGEN, [id number] 00:07:00 Test Item Value Reference Range Interpretation Comments L. PNEUMOPHILA Negative - see Negative fo r L. SEROGP 1 UR AG comment pneumophila (BEAKER) (test code serogrou p 1 antigen, = 1156) suggesting no r ecent or current infe ction with this serog roup. Legionellosis c annot be ruled out si nce other serogroup s and species may cau se disease. POCT-GLUCOSE [id number] 23:15:00 Test Item Value Reference Range Interpretation Comments POC-GLUCOSE METER 247 mg/dL 70-110 H TESTED AT [facility] 67[address] (BEAKER) (test code = [facility] 1538) [address] BASIC METABOLIC [id number] 23:09:00 Test Item Value Reference Range Interpretation [...] APPLICABLE FOR DIALYSIS PATIEN TS. BLOOD GAS, [id number] 22:52:00 Test Item Value Reference Range Interpretation [...] (test code = 1819) 21.0 % POCT-GLUCOSE [id number] 22:25:00 Test Item Value Reference Range Interpretation Comments POC-GLUCOSE METER 270 mg/dL 70-110 H TESTED AT [facility] 67[address] (BEAKER) (test code = [facility] [place] 1538) [address] POCT-GLUCOSE [id number] 21:28:00 Test Item Value Reference Range Interpretation Comments POC-GLUCOSE METER 312 mg/dL 70-110 H TESTED AT [facility] 67[address] (BEAKER) (test code = [facility] [place] 1538) [address] LACTIC ACID, [id number] 20:58:00 Test Item Value Reference Range Interpretation Comments LACTATE BLOOD ARTERIAL (2) 1.7 mmol/L 0.5-2.2 (BEAKER) (test code = 2874) BASIC METABOLIC [id number] 20:51:00 Test Item Value Reference Range Interpretation [...] NOT APPLICABLE FOR DIALYSIS PATIEN TS. POCT-GLUCOSE [id number] 20:37:00 Test Item Value Reference Range Interpretation Comments POC-GLUCOSE METER 334 mg/dL 70-110 H TESTED AT [facility] [address] ([facility]) (test code = [place] 1538) [address] RAD, CHEST, 1 VIEW, NON [id number] 20:13:00Post-intubationReason for exam:- >r/o pnaShould this be performed at the bedside?->YesFINAL REPORT History: "Rule out pneumonia". Comparison: None. Findings: A sin gle view of the chest is submitted. The cardiomediastinal contours are unremarkable. There is no focal consolidation, pneumothorax, large pleural effusion or evidence of overt pulmonary edema. Thereis no acute bony abnormality. Impression: No acute abnormality. Signed: Jacques Voraeport Verified Date/Time: 10/14/2018 20:13:51 Reading Location: [address] Reading Room POCT-GLUCOSE [id number] 19:39:00 Test Item Value Reference Range Interpretation Comments POC-GLUCOSE METER 432 mg/dL 70-110 HH TESTED AT [facility] [address] ([facility]) (test code = [facility] [place] 1538) [address] HEMOGLOBIN [id number] 19:16:00 Test Item Value Reference Range Interpretation Comments HEMOGLOBIN A1C (BEAKER) (test code = 10.2 % 4.3-6.1 H 368) [id number] 18:52:00 Test Item Value Reference Range Interpretation Comments PROCALCITONIN (BEAKER) (test code 5.14 ng/mL <0.05 H = 3036) SEPSIS RISK (ng/mL)Low: 0.05-0.50Intermediate: 0.51-2.00High: >=2.01CBC W/PLT COUNT & AUTO [id number] 18:37:00 Test Item Value Reference Range Interpretation [...] (BEAKER) (test code = 2801) BASIC METABOLIC [id number] 18:29:00 Test Item Value Reference Range Interpretation [...] APPLICABLE FOR DIALYSIS PATIEN TS. HEPATIC FUNCTION [id number] 18:29:00 Test Item Value Reference Range Interpretation [...] = 23 U/L 6-55 347) LACTIC ACID, [id number] 18:24:00 Test Item Value Reference Range Interpretation Comments LACTATE BLOOD ARTERIAL (2) 3.0 mmol/L 0.5-2.2 H (BEAKER) (test code = 2874) BLOOD GAS, [id number] 17:52:00 Test Item Value Reference Range Interpretation [...] 21.0 % CBC W/PLT COUNT & AUTO [id number] 17:50:00 Test Item Value Reference Range Interpretation [...] 3438) Received comment: User comments: Slide comments:POCT-GLUCOSE [id number] 17:49:00 Test Item Value Reference Range Interpretation Comments POC-GLUCOSE METER > mg/dL 70-110 HH OUTSIDE ME ASURING (BEAKER) (test code RANGETES GUNNAR AT [facility] 6720 = 1538) PHAN [facility] [address] KETONE, [id number] 17:13:00 Test Item Value Reference Range Interpretation Comments KETONES, BLOOD (BEAKER) (test code 5.4 mmol/L <0.4 H = 1103) TSH/FREE T4 IF [id number] 17:10:00 Test Item Value Reference Range Interpretation Comments THYROID STIMULATING HORMONE 0.64 uIU/mL 0.35-4.94 (BEAKER) (test code = 772) BASIC METABOLIC [id number] 16:57:00 Test Item Value Reference Range Interpretation [...] NOT APPLICABLE FOR DIALYSIS PATIEN TS. TROPONIN [id number] 16:56:00 Test Item Value Reference Range Interpretation [...] failure, acidosis, acute neurological disease, and persistent tachyarrhythmia.[id number] 16:50:00 Test Item Value Reference Range Interpretation Comments MAGNESIUM (BEAKER) 2.4 mg/dL 1.6-2.6 Specimen slightly (test code = 627) hemolyzed [id number] 16:50:00 Test Item Value Reference Range Interpretation Comments PHOSPHORUS (BEAKER) 5.6 mg/dL 2.3-4.7 H Specimen slightly (test code = 604) hemolyzed [id number] 16:50:00 Test Item Value Reference Range Interpretation Comments AMYLASE (BEAKER) (test 47 U/L 25-125 Speci men slightly code = 349) hemolyzed [id number] 16:50:00 Test Item Value Reference Range Interpretation Comments LIPASE (BEAKER) (test code = 749) 199 U/L 8-78 H PROTHROMBIN TIME/[id number] 16:47:00 Test Item Value Reference Range Interpretation [...] INR is2.5-3.5 for patients wiht mechanical heart valves.[id number] 16:47:00 Test Item Value Reference Range Interpretation Comments PARTIAL THROMBOPLASTIN TIME 23.5 seconds 22.5-36.0 (BEAKER) (test code = 760) [id number] 16:47:00 Test Item Value Reference Range Interpretation Comments FIBRINOGEN LEVEL (BEAKER) (test 284 mg/dl 225-434 code = 658) LACTIC ACID, [id number] 16:44:00 Test Item Value Reference Range Interpretation Comments LACTATE BLOOD VENOUS 4.2 mmol/L 0.5-2.2 H Specime n slightly (2) (BEAKER) (test hemolyzed code = 8982) HEMOGLOBIN AND [id number] 16:34:00 Test Item Value Reference Range Interpretation Comments HEMOGLOBIN (BEAKER) (test code = 14.5 GM/DL 13.7-17.5 410) HEMATOCRIT (BEAKER) (test code = 42.9 % 40.1-51.0 411) POTASSIUM-STAT [id number] 16:21:00 Test Item Value Reference Range Interpretation Comments POTASSIUM (BEAKER) (test code = 7.0 meq/L 3.6-5.5 HH 379) GLUCOSE-STAT [id number] 16:21:00 Test Item Value Reference Range Interpretation Comments GLUCOSE RANDOM (BEAKER) (test code 650 mg/dL 70-110 HH = 652) BLOOD GAS, [id number] 16:21:00 Test Item Value Reference Range Interpretation [...] code = 1819) 21.0 % SODIUM NA-STAT [id number] 16:15:00 Test Item Value Reference Range Interpretation Comments SODIUM (BEAKER) (test code = 381) 142 meq/L 135-148 HGB/HCT (H&H) - STAT [id number] 16:15:00 Test Item Value Reference Range Interpretation Comments HEMOGLOBIN (BEAKER) (test code = 14.8 g/dL 13.0-16.8 410) HEMATOCRIT (BEAKER) (test code = 44.0 % 40.0-50.0 411) POCT-GLUCOSE [id number] 15:42:00 Test Item Value Reference Range Interpretation Comments POC-GLUCOSE METER > mg/dL 70-110 HH OUTSIDE ME ASURING (BEAKER) (test code RANGENot ified YVONNE MD/TESTED = 1538) AT [facility] [address] [place] [address]
--- OUTSIDE RECORDS SUMMARY | 2020-03-08 06:22 | XMS REPORT | Summary of Care ---
:1990 Author Organization [facility] Address [address] [place] [address] Care Team Providers Name Role Phone Meggan Ray MD Primary Care Provider Reason for Visit Reason Comments New Patient Hand Pain Right DOI 01/30/2020 Encounter Details Date Type Department Care Team Description 02/03/2020 Office Visit [facility] Orthopaedic Jose Tenorio C losed displaced Surgery- [facility] fracture of shaft of [address], [address] fourth metacarpal bone [address] [place], [place] [address] [place], [place] encounter (Primary Dx) [phone] Allergies No Known Allergiesdocumented as of this [...] disorder (ADHD) 2006 Overview: ICD10 Diagnosis Term 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 Pain location: Right hand DME status: Arrived with temp splint Radiology status: Films from [facility] All Vitals taken, allergies and [...] ". Seen in the emergency department of [facility] they did x-rays there found him to [...] Diagnosis Date Acute pancreatitis 03/01 hospitalized in [place] for ?pancreatitis, not clear of cause Diabetes with ketoacidosis 01/02/2006 Trichomoniasis Type I (juvenile type) diabetes mellitus without mention of complication, uncontrolled 10/01/2005 Dx age 4; multiple admissions for DKA, last was 06/29 at [place] Past Surgical History: Procedure Laterality Date TOOTH [...] file Gets together: Not on file Attends episcopalian service: Not on file Active member of [...] Mother and 2 brothers; planning on attending [employer] next year to study mechanical engineering. Does [...] PANEL LAB Routine Closed displaced Ex pected: (33639)(NA, K, CL, fracture of shaft of 1 [...]
--- OUTSIDE RECORDS SUMMARY | 2020-03-08 06:22 | XMS REPORT | Summary of Care ---
:1990 Author Organization [facility] Address [address] [place] [address] Care Team Providers Name Role Phone Meggan Ray MD Primary Care Provider Reason for Visit Reason Comments New Patient Hand Pain Right DOI 01/30/2020 Encounter Details Date Type Department Care Team Description 02/03/2020 Office Visit [facility] Orthopaedic Jose Tenorio C losed displaced Surgery- [facility] fracture of shaft of [address] [place], [address] fourth metacarpal bone [address] [place] [address] [place], [place] encounter (Primary Dx) [phone] Allergies No Known Allergiesdocumented as of this [...] disorder (ADHD) 2006 Overview: ICD10 Diagnosis Term 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 Pain location: Right hand DME status: Arrived with temp splint Radiology status: Films from All Vitals taken, allergies and all medications [...] ". Seen in the emergency department of [facility] they did x-rays there found him to [...] Diagnosis Date Acute pancreatitis 03/01 hospitalized in [place] for ?pancreatitis, not clear of cause Diabetes with ketoacidosis 01/02/2006 Trichomoniasis Type I (juvenile type) diabetes mellitus without mention of complication, uncontrolled 10/01/2005 Dx age 4; multiple admissions for DKA, last was 06/29 at [place] Past Surgical History: Procedure Laterality Date TOOTH [...] file Gets together: Not on file Attends mormonism service: Not on file Active member of [...] Mother and 2 brothers; planning on attending [employer] next year to study mechanical engineering. Does [...] PANEL LAB Routine Closed displaced Ex pected: (98526)(NA, K, CL, fracture of shaft of 1 [...]
--- OUTSIDE RECORDS SUMMARY | 2020-03-08 06:22 | XMS REPORT | Summary of Care ---
:1990 Author Organization [facility] Address [address] [place] [address] Care Team Providers Name Role Phone Meggan Ray MD Primary Care Provider Reason for Visit Radiology Services (Routine) Status Reason Specialty Diagnoses / Referred By Referred To Procedures Contact Contact New Request Diagnostic Diagnoses Closed displaced fracture of shaft of fourth metacarpal bone of right hand, initial encounter Isaias Rae Radiology Procedures XR HAND 3+ VW RIGHT [place], [address] [place] [phone] Encounter Details Date Type Department Care Team Description 02/25/2020 Hospital En[facility] [address] [place] [phone] Allergies No Known Allergiesdocumented as of this encounter (statuses as of 02/26/2020) Medications Medication Sig Dispensed Refills Start Date [...] as of this encounter (statuses as of 02/26/2020) Active Problems Problem Noted Date Attention deficit hyperactivity disorder (ADHD) 2006 Overview: ICD10 Diagnosis Term 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 documented as of this encounter Last Filed Vital Signs Not on filedocumented in this encounter Plan of Treatment Date Type Specialty Care Team Description 03/12/2020 Office Visit Orthopedic Surgery Nellie Rae MD [facility] [place] [phone] Health Maintenance Due Date Last Done [...] this topic documented as of this encounter Procedures Procedure Name Priority Date/Time Associated Diagnosis Comme nts XR HAND 3+ VW RIGHT Routine 02/25/2020 9:18 AM Closed displac ed Results for this EXECUTIVE COORDINATOR fracture of shaft of procedu re are in fourth metacarpal the result s bone of right hand, section. initial encounter documented in this encounter Results XR HAND 3+ VW RIGHT (02/25/2020 9:18 AM EXECUTIVE COORDINATOR) Specimen Narrative Performed At This result has [...]
--- OUTSIDE RECORDS SUMMARY | 2020-03-08 06:22 | XMS REPORT | Summary of Care ---
:1990 Author Organization [facility] Address [address] [place] [address] Care Team Providers Name Role Phone Meggan Ray MD Primary Care Provider Reason for Visit Reason Comments Surgery Clearance Encounter Details Date Type Department Care Team Description 02/05/2020 Telephone [facility] Orthopaedic Isaias Rae , Surgery Clearance Surgery- Augusto GARZA [address] [facility] [address] [place] [address] [place], [place] [phone] Allergies No Known Allergiesdocumented as of this [...] disorder (ADHD) 2006 Overview: ICD10 Diagnosis Term 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. Jose spoke to anesthesia and requested the patient visit with them this morning at 7am. Silvana Neal 02/06/2020 9:37 AM elephone Encounter - Edna Yañez - 02/05/2020 3:55 PM CDTPatient called and he would like to have his surgery on 02/10/[address] [facility]. He was scheduled today at [facility] but was unable to have his surgery [...]
--- OUTSIDE RECORDS SUMMARY | 2020-03-08 06:22 | XMS REPORT | Summary of Care ---
:1990 Author Organization [facility] Address [address] [place] [address] Care Team Providers Name Role Phone Meggan Ray MD Primary Care Provider Reason for Visit Reason Comments LAB WORK Auth/Cert Status Reason Specialty Diagnoses / Procedures Referred By Ken combs Referred To Contact Phlebotomy Diagnoses pre op Adc Pob Lab Draw Procedures BASIC METABOLIC PANEL (NA, K, CL, CO2, GLUCOSE, BUN, CREATININE, CA) Professional Office Building [address] [place] [address] , [address] [place] [address] Phone: Fax: Encounter Details Date Type Department Care Team Description 02/04/2020 Professional Caster Visit [facility] Isaias Rae MD [address] [place] [address] [place] [address] Closed displaced Professional Office Pob, Adc Lab Main fracture of shaft of Building Phlebotomy fourth m etacarpal Lab bone of right hand, Professional Office initial encounter Building [address] [facility] , [address] [place] [address] Allergies No Known Allergiesdocumented as [...] disorder (ADHD) 2006 Overview: ICD10 Diagnosis Term 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
--- OUTSIDE RECORDS SUMMARY | 2020-03-08 06:22 | XMS REPORT | Summary of Care ---
:1990 Author Organization [facility] Address [address] [place] [address] Care Team Providers Name Role Phone Meggan Ray MD Primary Care Provider Encounter Details Date Type Department Care Team Description 02/12/2020 Orders Only [facility] Doctor Unassigned, No [address] [facility] Name [place] [phone] [place] [address] Allergies No Known Allergiesdocumented as of this [...] disorder (ADHD) 2006 Overview: ICD10 Diagnosis Term Case Work Aide Utility Uncontrolled type 1 diabetes mellitus 10/01/2005 Overview: Dx age 4 ICD10 Diagnosis Term Case Work Aide Utility Trichomoniasis documented as of this [...] Name Priority Date/Time Associated Diagnosis Comme nts EXTERNAL PROVIDER Routine 02/12/2020 12:01 AM CDT RECORDS documented in this encounter Results Not on filedocumented in this encounter
--- OUTSIDE RECORDS SUMMARY | 2020-03-08 06:22 | XMS REPORT | Summary of Care ---
:1990 Author Organization [facility] Address [address] [place] [address] Care Team Providers Name Role Phone Meggan Ray MD Primary Care Provider Encounter Details Date Type Department Care Team Description 03/04/2020 Orders Only [facility] Doctor Unassigned, No 301 [facility] Name [place] [phone] [place] [address] Allergies No Known Allergiesdocumented as of this encounter (statuses as of 03/04/2020) Medications Medication Sig Dispensed Refills Start Date [...] as of this encounter (statuses as of 03/04/2020) Active Problems Problem Noted Date Attention deficit hyperactivity disorder (ADHD) 2006 Overview: ICD10 Diagnosis Term Associate Director Regulatory Affairs Utility Uncontrolled type 1 diabetes mellitus 10/01/2005 Overview: Dx age 4 ICD10 Diagnosis Term Associate Director Regulatory Affairs Utility Trichomoniasis documented as of this encounter (statuses as of 03/04/2020) Resolved Problems Problem Noted Date Resolved Date DKA (diabetic ketoacidoses) 07/29/2015 01/29/2019 documented as of this encounter (statuses as of 03/04/2020) Immunizations Name Administration Dates Next Due Influenza [...] with No / Unsure 02/25/2020 9:09 AM SENIOR APPLICATIONS ARCHITECT someone who was confirmed or suspected to have Coronavirus / COVID-19? documented as of this encounter Last Filed Vital Signs Not on filedocumented in this encounter Plan of Treatment Date Type Specialty Care Team Description 03/12/2020 Office Visit Orthopedic Surgery Nellie Rae MD [address] [place] [phone] Health Maintenance Due Date Last Done [...] Associated Diagnosis Comme nts EXTERNAL PROVIDER Routine 03/04/2020 12:01 AM SENIOR APPLICATIONS ARCHITECT RECORDS documented in this encounter Results Not on filedocumented in this encounter
--- OUTSIDE RECORDS SUMMARY | 2020-03-08 06:22 | XMS REPORT | Summary of Care ---
:1990 Author Organization [facility] Address [address] [place] [id number] Care Team Providers Name Role Phone Meggan Ray MD Primary Care Provider Reason for Visit Reason Comments Surgery Clearance Encounter Details Date Type Department Care Team Description 02/13/2020 Telephone [facility] Orthopaedic Isaias Rae , Surgery Clearance Surgery- Augusto GARZA [address] [facility] [address] [place] [address] [address] [place], [place] [phone] Allergies No Known Allergiesdocumented as of this encounter (statuses as of 02/14/2020) Medications Medication Sig Dispensed Refills Start Date [...] as of this encounter (statuses as of 02/14/2020) Active Problems Problem Noted Date Attention deficit hyperactivity disorder (ADHD) 2006 Overview: ICD10 Diagnosis Term [employer] Utility Uncontrolled type 1 diabetes mellitus 10/01/2005 Overview: Dx age 4 ICD10 Diagnosis Term [employer] Utility Trichomoniasis documented as of this encounter (statuses as of 02/14/2020) Resolved Problems Problem Noted Date Resolved Date DKA (diabetic ketoacidoses) 07/29/2015 01/29/2019 documented as of this encounter (statuses as of 02/14/2020) Immunizations Name Administration Dates Next Due Influenza [...] Notes Telephone Encounter - Silvana Neal - 02/14/2020 10:43 AM CDTCalled and spoke to the patient. He stated he didn't have a PCP but was going to look for one or try to get a clearance from the hospital he was at. Silvana Neal 02/14/2020 10:43 AM elephone Encounter - Jose Tenorio PAC - 02/14/2020 9:20 AM CDTOnce he has a clearance letter from his medicine provider that he is safe for surgery we can reschedule him. Telephone Encounter - Silvana Neal - 02/14/2020 8:31 AM CDT Closed displaced fracture of shaft of fourth metacarpal bone of right hand DOI 01/30/2020 He was scheduled for an ORIF but his glucose levels were elevated. What should he do at this point? Silvana Neal 02/14/2020 8:32 AM elephone Encounter - Edna Yañez - 02/13/2020 12:07 PM CDTPatient called stating he just got out of the hospital for his diabetes and is ready to schedule surg jeff. Please call patient to schedule. Thank you. documented in this encounter Plan [...]
[2020-03-08] MEDS ORDERED: ONDANSETRON 4 MG/2 ML VIAL ONE (06:54)
[2020-03-08] MEDS ORDERED: NA CHLORIDE 0.9% 1,000 ML ONE ×3 (06:54→09:57)
[2020-03-08] MEDS ORDERED: METOCLOPRAMIDE 10 MG/2mL INJ ONE ×2 (07:30→14:48)
[2020-03-08 07:41] LABS: Absolute Lymphocytes (CBC) 0.9 K/uL (0.7-4.9); Basophils % 0.2 % (0-1.3); Hematocrit 44.9 % (39.6-49.0); Lymphocytes % 6.4 % (15.3-44.8); MPV 8.1 fL (7.6-11.3); RBC Red Blood Cell Count 4.62 M/uL (4.33-5.43)
[2020-03-08 08:06] LABS: Blood Morphology Comment NOT SEEN (NOT SEEN); Platelet Estimate ADEQ; White Blood Cell Scan OK (OK)
[2020-03-08 08:25] LABS: Albumin 4.1 g/dL (3.4-5.0); Bilirubin Direct 0.3 mg/dL (0-0.2); Bilirubin Total 1.8 mg/dL (0.2-1.0); Protein, Total 7.6 g/dL (6.4-8.2)
[2020-03-08 08:28] LABS: Potassium 5.9 mmol/L (3.5-5.1)
[2020-03-08 08:52] LABS: Arterial Blood Carboxyhemoglob 1.6 % (0-1.5); Blood Gas Oxyhemoglobin 94.2 % (94-97); Blood O2 Saturation 96.9 % (92-98.5)
--- NOTE | 2020-03-08 09:22 | RAD REPORT ---
EXAM DESCRIPTION: CT - Abdomen Pelvis Wo Contrast - 03/08/2020 9:05 am CLINICAL HISTORY: Abdominal pain COMPARISON: 01/2020 TECHNIQUE: Computed axial tomography of the abdomen and pelvis was obtained. IV and oral contrast we re not requested. All CT scans are performed using dose optimization technique as appropriate and may include automated exposure control or mA/KV adjustment according to patient size. FINDINGS: The evaluation of solid organs, vessels and bowel is limited secondary to the lack of con trast administration. 1 millimeter calculus each kidney. Mild right hydronephrosis. No left hydronephrosis. No ureteral allison culus. A bladder calculus is not seen. Bladder is mildly distended. Liver appears mildly enlarged Punctate calcification region pancreatic head. Pancreas is normal size density. The spleen and adrenals appear grossly normal There is no evidence diverticulitis. Normal appendix. Small umbilical hernia Spondylolysis L5 IMPRESSION: Small bilateral nonobstructing renal calculi. Mild hepatomegaly Mild right hydronephrosis without an obstructing ureteral calculus.
[2020-03-08] MEDS ORDERED: SODIUM BICARB 50 MEQ/50ML VIAL ONE (09:31)
[2020-03-08] MEDS ORDERED: INSULIN -REGULAR HUMAN 50 UNIT/0.5 ML ML ONE (09:31)
--- NOTE | 2020-03-08 09:55 | EDPHYS ---
Physician Documentation [facility] Name: Enio Bradley Age: 29 yrs Sex: Male : 1990 Arrival Date: 03/08/2020 Time: 06:18 Bed 4 Private MD: ED Physician Reece Hebert HPI: 03/08 09:48 This 29 yrs old Male presents to ER via Ambulatory with complaints of rn Abdominal Pain, Nausea/Vomiting. 09:48 The patient presents to the emergency department with nausea, vomiting, abdominal pain. rn Onset: The symptoms/episode began/occurred 2 day(s) ago. Possible causes: diabetes, medication non-compliance. The symptoms are aggravated by movement, pressure, The symptoms are alleviated by nothing. Associated signs and symptoms: Pertinent positives: abdominal pain, nausea, vomiting, Pertinent negatives: fever, GI bleeding. Severity of symptoms: At their worst the symptoms were moderate in the emergency department the symptoms are unchanged. The patient has experienced similar episodes in the past. REports ran out of medication a few days ago, + 2 days of nausea/vomiting/abd pain, feels dehydrated. Reports glucose in 200s recently, and feels like his gastroparesis. . Historical: - Allergies: 06:27 No Known Allergies; mg2 - Home Meds: 06:27 Novolog Flexpen subcutaneous [Active]; Tresiba FlexTouch U-100 subcutaneous [Active]; mg2 - PMHx: 06:27 ADD/ADHD; Diabetes - IDDM; mg2 - PSHx: 06:27 None; mg2 - Immunization history:: Flu vaccine is not up to date. - Social history:: Smoking status: unknown. - Family history:: not pertinent. - Hospitalizations: : No recent hospitalization is reported. ROS: 09:50 Constitutional: Negative for fever, chills, and weight loss, Eyes: Negative for injury, rn pain, redness, and discharge, Neck: Negative for injury, pain, and swelling, Cardiovascular: Negative for chest pain, palpitations, and edema, Respiratory: Negative for shortness of breath, cough, wheezing, and pleuritic chest pain, Abdomen/GI: Negative for diarrhea, and constipation, Back: Negative for injury and pain, : Negative for injury, bleeding, discharge, and swelling, MS/Extremity: Negative for injury and deformity, Skin: Negative for injury, rash, and discoloration, Neuro: Negative for headache, numbness, tingling, and seizure. Exam: 09:50 Constitutional: Thin male, actively vomiting Head/Face: Normocephalic, atraumatic. rn Eyes: Pupils equal round and reactive to light, extra-ocular motions intact. Lids and lashes normal. Conjunctiva and sclera are non-icteric and not injected. Cornea within normal limits. Periorbital areas with no swelling, redness, or edema. ENT: dry MM Cardiovascular: Tachycardic, regular Respiratory: + tachypnea, clear bilaterally Abdomen/GI: soft, + mild mid abd tenderness, no rebound Skin: Warm, dry MS/ Extremity: Pulses equal, no cyanosis. Neurovascular intact. Full, normal range of motion. Equal circumference. Neuro: Awake and alert, GCS 15 Vital Signs: 06:24 BP 143 / 79; Pulse 114; Resp 18; Pulse Ox 99% on R/A; Weight 81.65 kg; Height 5 ft. 11 mg2 in. (180.34 cm); 06:48 Temp 97(A); mg2 08:00 BP 139 / 50; Pulse 126; Resp 19; Pulse Ox 100% ; bp 09:13 BP 139 / 67; Pulse 129; Resp 20; Temp 97.7(O); Pulse Ox 100% on R/A; mh5 10:30 BP 122 / 57; Pulse 132; Resp 24; Pulse Ox 100% ; bp 11:30 BP 101 / 52; Pulse 127; Resp 26; Pulse Ox 100% ; bp 06:24 Body Mass Index 25.10 (81.65 kg, 180.34 cm) mg2 MDM: 07:07 Patient medically screened. rn 09:50 Differential diagnosis: Nonspecific abd pain, gastritis, cholecystitis, pancreatitis, rn appendicitis, diverticulitis, viral gastroenteritis, gastroenteritis, DKA, gastroparesis. Data reviewed: vital signs, nurses notes, lab test result(s), radiologic studies, CT scan, and as a result, I will admit patient. Counseling: I had a detailed discussion with the patient and/or guardian regarding: the historical points, exam findings, and any diagnostic results supporting the discharge/admit diagnosis, lab results, radiology results, the need for further work-up and treatment in the hospital. Response to treatment: the patient's symptoms have mildly improved after treatment, and as a result, I will admit patient. Admission orders: after a detailed discussion of the patient's condition and case, the admit orders are written by me. ED course: Pt with moderate-severe DKA, improved with medication and fluids, insulin drip started, no acute findings on CT abdomen. Admitted to hospitalist service. . 03/08 06:42 Order name: Basic Metabolic Panel; Complete Time: 09:33 ea 03/08 06:42 Order name: CBC with Diff ea 03/08 06:42 Order name: Hepatic Function; Complete Time: 09:33 ea 03/08 06:42 Order name: Lipase; Complete Time: 09:33 ea 03/08 08:07 Order name: CBC Smear Scan; Complete Time: 08:18 EDMS 03/08 08:29 Order name: ABG; Complete Time: 09:33 rn 03/08 08:53 Order name: Abdomen ; Complete Time: 09:33 EDMS 03/08 10:00 Order name: Glucose, Ancillary Testing EDAR 03/08 10:51 Order name: Glucose, Ancillary Testing EDAR 03/08 10:54 Order name: COVID-19 5 03/08 11:08 Order name: CORONAVIRUS EDAR 03/08 06:42 Order name: IV Saline Lock; Complete Time: 06:42 ea 03/08 06:42 Order name: Labs collected and sent; Complete Time: 06:47 ea 03/08 06:59 Order name: Labs - recollect needed; Complete Time: 07:41 sg Administered Medications: 06:47 Drug: NS 0.9% 1000 ml Route: IV; Rate: 1 bolus; Site: left antecubital; mg2 11:28 Follow up: IV Status: Completed infusion; IV Intake: 1000ml bp 06:47 Drug: Zofran (Ondansetron) 4 mg Route: IVP; Site: left antecubital; mg2 07:05 Follow up: Response: No adverse reaction rb3 07:20 Drug: Reglan 10 mg Route: IVP; Site: left antecubital; bp 08:31 Follow up: Response: No adverse reaction bp 07:20 Drug: NS 0.9% 1000 ml Route: IV; Rate: 1000 ml; Site: left antecubital; bp 11:28 Follow up: IV Status: Completed infusion; IV Intake: 1000ml bp 09:25 Drug: Sodium Bicarbonate 1 amp Route: IVP; Site: left antecubital; rb3 11:27 Follow up: Response: No adverse reaction bp 09:25 Drug: Insulin Regular Human 10 units {Co-Signature: (Mike Haddad RN).} Route: IVP; rb3 Site: left antecubital; 11:27 Follow up: Response: No adverse reaction bp 09:48 Drug: Insulin Drip - (Insulin Regular Human 100 units, NS 0.9% 100 ml) {Co-Signature: rb3 (Mike Haddad RN).} Route: IV; Rate: calculated rate; Site: left antecubital; 10:00 Follow up: Insulin drip started at 8 units/h rb3 11:27 Follow up: IV Status: Infusion continued upon admission bp Disposition: 03/08/20 09:54 Hospitalization ordered by Gonzalez Hebert for Inpatient Admission. Preliminary diagnosis are Other specified diabetes mellitus with ketoacidosis without coma, Hyperkalemia, Dehydration. - Bed requested for Intensive Care Unit. - Status is Inpatient Admission. bp - Condition is Stable. - Problem is new. - Symptoms have improved. Critical care time excluding procedures: 09:50 Critical care time: Bedside Care: 30 minutes, Consultation: 5 minutes. Total time: 35 rn minutes Signatures: Dispatcher [employer] EDAR Jake Tierney RN Reece Gonzalez MD MD rn Antunez, Elena, RN Mike Leija ea, RN RN bp Gardose, Michele, Anastasia Hutchins RN, RN RN rb3 Mike Haddad RN bp Corrections: (The following items were deleted from the chart) 08:53 08:18 Abdomen Pelvis W Con+CT.RAD.BRZ ordered. EDAR EDMS 11:50 09:54 Hospitalization Ordered by Gonzalez Hebert MD for Inpatient Admission. Preliminary bp diagnosis is Other specified diabetes mellitus with ketoacidosis without coma; Hyperkalemia; Dehydration. Bed requested for Intensive Care Unit. Status is Inpatient Admission. Condition is Stable. Problem is new. Symptoms have improved. rn
--- NOTE | 2020-03-08 09:55 | ER ---
Nurse's Notes [facility] Name: Enio Bradley Age: 29 yrs Sex: Male : 1990 Arrival Date: 03/08/2020 Time: 06:18 Bed 4 Private MD: Diagnosis: Other specified diabetes mellitus with ketoacidosis without coma;Hyperkalemia;Dehydration Presentation: 03/08 06:24 Chief complaint: Patient states: i was dc 3 weeks ago for gastroparesis and i ran out [facility] medicine for it. i started vomiting coffee ground emesis today. my stomach hurts as well when i vomit. Coronavirus screen: At this time, the client does not indicate any symptoms associated with coronavirus-19. Ebola Screen: No symptoms or risks identified at this time. Initial Sepsis Screen: Does the patient meet any 2 criteria? No. Patient's initial sepsis screen is negative. Does the patient have a suspected source of infection? No. Patient's initial sepsis screen is negative. Risk Assessment: Do you want to hurt yourself or someone else? Patient reports no desire to harm self or others. Onset of symptoms was March 08, 2020. 06:24 Method Of Arrival: Ambulatory mg2 06:24 Acuity: JAMAL 3 mg2 Triage Assessment: 06:48 General: Appears uncomfortable, Behavior is cooperative. Pain: Denies pain. Neuro: ea Level of Consciousness is awake, alert, obeys commands, Oriented to person, place, time, situation. Cardiovascular: Patient's skin is warm and dry. Respiratory: Airway is patent Respiratory effort is even, unlabored, Respiratory pattern is regular, symmetrical. GI: Abdomen is non-distended. Historical: - Allergies: 06:27 No Known Allergies; mg2 - Home Meds: 06:27 Novolog Flexpen subcutaneous [Active]; Tresiba FlexTouch U-100 subcutaneous [Active]; mg2 - PMHx: 06:27 ADD/ADHD; Diabetes - IDDM; mg2 - PSHx: 06:27 None; mg2 - Immunization history:: Flu vaccine is not up to date. - Social history:: Smoking status: unknown. - Family history:: not pertinent. - Hospitalizations: : No recent hospitalization is reported. Screenin:48 Abuse screen: Denies threats or abuse. Nutritional screening: No deficits noted. ea Tuberculosis screening: No symptoms or risk factors identified. Fall Risk IV access (20 points). Assessment: 06:48 Reassessment: see triage assessment. ea 07:00 Reassessment: No changes from previously documented assessment. Patient and/or family bp updated on plan of care and expected duration. Pain level reassessed. RECD REPORT FROM LISA RUSSELL. 29YO WM P/W ABD PAIN AND N/V, H/O GASTROPARESIS. 07:18 Reassessment: Called lab to come and draw the recollect. rb3 07:30 Reassessment: PHLEBOTOMY AT B/S. bp 08:00 Reassessment: Patient appears in no apparent distress at this time. Patient and/or bp family updated on plan of care and expected duration. Pain level reassessed. Patient is alert, oriented x 3, equal unlabored respirations, skin warm/dry/pink. 09:40 Reassessment: Pt. is vomiting. rb3 10:40 Reassessment: No changes from previously documented assessment. Patient and/or family bp updated on plan of care and expected duration. Pain level reassessed. Patient is alert, oriented x 3, equal unlabored respirations, skin warm/dry/pink. Neuro: Level of Consciousness is lethargic. 11:48 Reassessment: REPORT TO STACEY RUSSELL FOR ICU HOLDING. PT BGL REMAINS "HIGH". bp Cardiovascular: Rhythm is sinus tachycardia. Vital Signs: 06:24 BP 143 / 79; Pulse 114; Resp 18; Pulse Ox 99% on R/A; Weight 81.65 kg; Height 5 ft. 11 mg2 in. (180.34 cm); 06:48 Temp 97(A); mg2 08:00 BP 139 / 50; Pulse 126; Resp 19; Pulse Ox 100% ; bp 09:13 BP 139 / 67; Pulse 129; Resp 20; Temp 97.7(O); Pulse Ox 100% on R/A; mh5 10:30 BP 122 / 57; Pulse 132; Resp 24; Pulse Ox 100% ; bp 11:30 BP 101 / 52; Pulse 127; Resp 26; Pulse Ox 100% ; bp 06:24 Body Mass Index 25.10 (81.65 kg, 180.34 cm) mg2 ED Course: 06:18 Patient arrived in ED. am2 06:25 Jarrett Prescott MD is Attending Physician. mh7 06:27 Triage completed. mg2 06:27 Arm band placed on. mg2 06:35 Inserted saline lock: 20 gauge in right antecubital area, using aseptic technique. ea 06:48 Patient has correct armband on for positive identification. Bed in low position. Call ea light in reach. Side rails up X 1. school bus monitor on. Pulse ox on. NIBP on. 07:05 Mike Haddad, YVONNE is Primary Nurse. bp 07:07 Attending Physician role handed off by Jarrett Prescott MD rn 07:07 Reece Hebert MD is Attending Physician. rn 09:05 Abdomen In Process Unspecified. EDMS 09:54 Gonzalez Hebert MD is Hospitalizing Provider. rn 11:49 No provider procedures requiring assistance completed. Patient admitted, IV remains in bp place. Administered Medications: 06:47 Drug: NS 0.9% 1000 ml Route: IV; Rate: 1 bolus; Site: left antecubital; mg2 11:28 Follow up: IV Status: Completed infusion; IV Intake: 1000ml bp 06:47 Drug: Zofran (Ondansetron) 4 mg Route: IVP; Site: left antecubital; mg2 07:05 Follow up: Response: No adverse reaction rb3 07:20 Drug: Reglan 10 mg Route: IVP; Site: left antecubital; bp 08:31 Follow up: Response: No adverse reaction bp 07:20 Drug: NS 0.9% 1000 ml Route: IV; Rate: 1000 ml; Site: left antecubital; bp 11:28 Follow up: IV Status: Completed infusion; IV Intake: 1000ml bp 09:25 Drug: Sodium Bicarbonate 1 amp Route: IVP; Site: left antecubital; rb3 11:27 Follow up: Response: No adverse reaction bp 09:25 Drug: Insulin Regular Human 10 units {Co-Signature: bp (Mike Haddad RN).} Route: IVP; rb3 Site: left antecubital; 11:27 Follow up: Response: No adverse reaction bp 09:48 Drug: Insulin Drip - (Insulin Regular Human 100 units, NS 0.9% 100 ml) {Co-Signature: rb3 bp (Mike Haddad RN).} Route: IV; Rate: calculated rate; Site: left antecubital; 10:00 Follow up: Insulin drip started at 8 units/h rb3 11:27 Follow up: IV Status: Infusion continued upon admission bp Intake: 11:28 IV: 1000ml; Total: 1000ml. bp 11:28 IV: 1000ml; Total: 2000ml. bp Outcome: 09:54 Decision to Hospitalize by Provider. rn 11:49 Admitted to ICU accompanied by nurse, accompanied by tech, family with patient, via bp wheelchair, room 10, with chart, Report called to STACEY RUSSELL 11:49 Condition: stable 11:49 Instructed on the need for admit. 11:50 Patient left the ED. bp Signatures: Dispatcher [employer] EDMS Reece Hebert MD MD rn Martinez, Maria 5 Petty Gamboa am2 Lisa Combs RN Mike Leija ea, RN RN bp Pavel Laura RN RN mg2 Jarrett Prescott MD MD 7 Anastasia Pickett, RN RN rb3 Mike Haddad RN bp Corrections: (The following items were deleted from the chart) 09:16 09:09 BP 140 / 57; Pulse 114bpm; Resp 20bpm; Pulse Ox 100% RA; Temp 97.3F Temporal; mh5 mh5
[2020-03-08] MEDS ORDERED: PROMETHAZINE INJ 25 MG/ML AMP ONE (09:57)
[2020-03-08] MEDS ORDERED: INSULIN -REGULAR HUMAN 100 UNIT in NA CHLORIDE 0.9% 100 ML IV SCH ×2 (10:00→16:15)
--- NOTE | 2020-03-08 10:31 | P.HP ---
Certification for Inpatient Patient admitted to: Inpatient With expected LOS: >2 Midnights Practitioner: I am a practitioner with admitting privileges, knowledge of patient current condition, hospital course, and medical plan of care. Services: Services provided to patient in accordance with Admission requirements found in Title 42 Section 412.3 of the Code of Federal Regulations Patient History Date of Service: 03/08/20 Primary Care Provider: none Reason for admission: DKA History of Present Illness: 29-year-old male with history of diabetes mellitus type 1 presents to the ED with persistent nausea/vomiting since yesterday morning, found to have hyperglycemia (greater than 700). The patient somewhat lethargic but arousable. History obtained from the significant other. She states patient has been under lot of stress with recent of his grandfather. He just returned home from out of town a few days ago. He then started to complain of not feeling right. He ran out of his erythromycin and began to have nausea and vomiting. No significant other states he was not complaining of anything else, and did report some abdominal discomfort after continuing to vomit. Workup in the ED revealed mild leukocytosis of 13.4, and labwork consistent with DKA a with anion gap of 28. He was given 10 units IV insulin, started on insulin drip, and given 1 amp of bicarb Allergies No Known Drug Allergies Allergy (Verified 09/02/16 14:03) Unknown No Known Allergies Allergy (Uncoded 09/02/16 14:03) Unknown Home Medications: Ondansetron [Zofran (Odt)*] 4 mg PO Q12H PRN 02/08/20 Erythromycin Base [Erythromycin] 250 mg PO AC #90 tablet 02/12/20 Insulin Glargine Human [Lantus*] 10 units SQ BEDTIME #0 ml 02/12/20 Insulin Glargine Human [Lantus*] 20 units SQ DAILY WITH BREAKFAST ml 02/12/20 clonazePAM [Klonopin*] 0.5 mg PO TID #30 tab 02/12/20 - Past Medical/Surgical History Diabetic: Yes -: Diabetes mellitus type 1 -: ADD -: tubes in ears Psychosocial/ Personal History: Single, 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 Patient is from the area. 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 - Family History Mother -: Cancer - Social History Smoking Status: Unknown if ever smoked Alcohol use: Yes CD- Drugs: No Caffeine use: Yes Place of Residence: Home Review of Systems is unable to be obtained Physical Examination - Physical Exam General: Other (Without icterus, response to verbal stimuli, able answer questions briefly with slightly slurred speech) HEENT: Other (Dry mucous membranes), Sclerae nonicteric Respiratory: Clear to auscultation bilaterally, Normal air movement Cardiovascular: No edema, Other (Sinus tachycardia) Gastrointestinal: Soft and benign, Tenderness (diffuse mild tenderness, no rebound/guarding) Musculoskeletal: No tenderness Integumentary: No significant lesion Neurological: Other (moves all extremities, responds to verbal stimuli, briefly answers then back to sleep) - Studies Laboratory Data (last 24 hrs) 03/08/20 07:33: WBC 13.4 H, Hgb 14.6, Hct 44.9, Plt Count 246 03/08/20 07:33: Sodium 135 L, Potassium 5.9 H*, BUN 26 H, Creatinine 1.70 H, Glucose 762 H*, Total Bilirubin 1.8 H, AST 30, ALT 55, Alkaline Phosphatase 81, Lipase 181 Assessment and Plan - Advance Directives Does patient have a Living Will: No Does patient have a Durable POA for Healthcare: No Physician Review Additional Text: Diabetes mellitus type 1 complicated with diabetic ketoacidosis Gastroparesis Acute kidney injury Nausea/vomiting -admit to ICU, received IV fluid bolus, IV insulin, 1 amp of bicarb, and started on insulin drip in the ED -q.4 hr BMP, q.1 hr glucose checks -DKA protocol ordered -continue aggressive IV fluid hydration with normal saline, replace potassium as needed -IV Reglan for nausea/gastroparesis -mildly elevated leukocytosis, likely reactive, he was treated for mild ascending colitis approximately [address] abdomen/pelvis without any acute infectious process -MELANIE likely secondary to dehydration in the setting of DKA. Mild hydronephrosis noted on CT abdomen/pelvis which is new; will consult nephrology VTE: lovenox Code: full dispo: anticipate hospitalization > 2 days Time Spent Managing Pts Care (In Minutes): 55
[2020-03-08] MEDS ORDERED: NACHLORIDE 0.45% 1,000 ML IV SCH (11:00)
--- NOTE | 2020-03-08 11:57 | P.CNS ---
Date of Consult: 03/08/20 Reason for Consult: MELANIE , Acidosis , hyperkalemia Primary Care Provider: none Chief Complaint: DKA History of Present Illness: HPI 29-year-old male with history of diabetes mellitus type 1 presents to the ED with persistent nausea/vomiting since yesterday morning, pt was admitted few months ago with DKA and MELANIE pt was not compliant with His insulin in the last few days pt is lethargic , responsive to verbal stimuli in ER BS >700, WBC 13.4, anion gap of 28. He was given 10 units IV insulin, started on insulin drip, and given 1 amp of bicarb Review of Systems: Head and Neck: No red eye. No ear pain. GI: have nausea, vomiting. : polyuria, no dysuria, no hematuria. Sap Business Analyst: Not applicable. Respiratory: tachypnea Cardiovascular: No chest pain. Endocrine: No polydipsia. Skin: No rash. Neuro: lethargic , responsive to verbal stimuli Musculoskeletal: no eddema Physical exam general: lethargic , responsive to verbal stimuli Neck; Supple, No elevated JVD hear: RRR, normal S1,2 no murmur or rub Chest: tachypnea , no rlaes or wheezes Abdomen: Soft , Nt Extremities trace edema, Leg ulcer , feet dressed A/P MELANIE due to dehydration resolved avoid NSAID Abdominal CT , mild Rt hydro , which is new from CT on 02/06 , this could represent fullness of collecting system , will repeat US in 1-2 days and if persisit , will refer to urology as an OP pseudohyperkalemia due to K shift no need for treatment cont insulin DKA cont insulin drip if bicarb still low , then will change fluid to bicarb drip nausea and vomiting due to DKA Allergies No Known Drug Allergies Allergy (Verified 09/02/16 14:03) Unknown No Known Allergies Allergy (Uncoded 09/02/16 14:03) Unknown Home Medications: Ondansetron [Zofran (Odt)*] 4 mg PO Q12H PRN 02/08/20 Erythromycin Base [Erythromycin] 250 mg PO AC #90 tablet 02/12/20 Insulin Glargine Human [Lantus*] 10 units SQ BEDTIME #0 ml 02/12/20 Insulin Glargine Human [Lantus*] 20 units SQ DAILY WITH BREAKFAST ml 02/12/20 clonazePAM [Klonopin*] 0.5 mg PO TID #30 tab 02/12/20 - Past Medical/Surgical History Diabetic: Yes -: Diabetes mellitus type 1 -: ADD -: tubes in ears Psychosocial/ Personal History: Single, 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 Patient is from the area. 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 - Family History Mother Medical History: Cancer - Social History Smoking Status: Never smoker Alcohol use: Yes CD- Drugs: No Caffeine use: Yes Place of Residence: Home Physical Examination Laboratory Data (last 24 hrs) 03/08/20 07:33: WBC 13.4 H, Hgb 14.6, Hct 44.9, Plt Count 246 03/08/20 07:33: Sodium 135 L, Potassium 5.9 H*, BUN 26 H, Creatinine 1.70 H, Glucose 762 H*, Total Bilirubin 1.8 H, AST 30, ALT 55, Alkaline Phosphatase 81, Lipase 181
[2020-03-08 12:07] LABS: Potassium 4.8 mmol/L (3.5-5.1)
[2020-03-08 12:10] VITALS: BMI 24.1
[2020-03-08] MEDS ORDERED: NACHLORIDE 0.45% 1,000 ML with NA BICARB 8.4% 75 MEQ IV SCH ×2 (13:00)
[2020-03-08] MEDS: METOCLOPRAMIDE 10 MG/2mL INJ IV PRN (14:38)
[2020-03-08 15:31] LABS: Potassium 4.1 mmol/L (3.5-5.1)
[2020-03-08] MEDS ORDERED: D50W 25 GM/50 ML SYRINGE IV PRN (15:50)
[2020-03-08] MEDS ORDERED: GLUCAGON 1 MG/VIAL IM PRN (15:50)
[2020-03-08] MEDS ORDERED: INSULIN -REGULAR HUMAN 50 UNIT/0.5 ML ML IV SCH (16:00)
[2020-03-08] MEDS ORDERED: D5 0.45 NS 1,000 ML IV SCH (16:00)
[2020-03-08] MEDS: NACHLORIDE 0.45% 1,000 ML IV SCH (16:00)
[2020-03-08] MEDS ORDERED: D5 0.45 NS 1,000 ML IV ONE (16:44)
[2020-03-08 17:10] LABS: Urine Appearance CLEAR; Urine Bilirubin NEGATIVE (NEG); Urine Blood TRACE (NEG); Urine Color YELLOW; Urine Glucose 3+ (NEG); Urine Microscopic Reflex ORDER UMIC; Urine Protein 1+ (NEG); Urine Specific Gravity 1.025 (1.005-1.030); Urine Urobilinogen 0.2 mg/dL (0.2-1.0); Urine pH 5.5 (5.0-7.0)
[2020-03-08 17:18] LABS: Urine Bacteria NONE SEEN /HPF (NONE SEEN); Urine Culture Reflex Order NOT NEEDED; Urine RBC <5 /HPF (NONE SEEN)
[2020-03-08] MEDS: D5 0.45 NS 1,000 ML IV SCH (17:47)
[2020-03-08] MEDS ORDERED: D5 0.2 NS 1,000 ML IV ONE (18:29)
[2020-03-08] MEDS: D5 0.2 NS 1,000 ML IV SCH (18:30)
[2020-03-08 19:44] LABS: Potassium 3.9 mmol/L (3.5-5.1)
[2020-03-08 23:03] LABS: Potassium 3.8 mmol/L (3.5-5.1)
[2020-03-09] MEDS: D5 0.45 NS 1,000 ML IV SCH ×4 (00:27→21:55)
[2020-03-09] MEDS: D5 0.2 NS 1,000 ML IV SCH (01:18)
[2020-03-09] MEDS ORDERED: D5 0.2 NS 1,000 ML IV ONE (01:21)
[2020-03-09 01:51] LABS: Barbiturates NEGATIVE (NEGATIVE); Benzodiazepines NEGATIVE (NEGATIVE); Cocaine NEGATIVE (NEGATIVE); METHAMPHETAM NEGATIVE (NEGATIVE); Methadone NEGATIVE (NEGATIVE); Opiates NEGATIVE (NEGATIVE); Phencyclidine NEGATIVE (NEGATIVE); THC Cannibis NEGATIVE (NEGATIVE)
[2020-03-09] MEDS: METOCLOPRAMIDE 10 MG/2mL INJ IV PRN ×4 (02:52→21:07)
[2020-03-09] MEDS ORDERED: METOCLOPRAMIDE 10 MG/2mL INJ ONE ×3 (03:00→12:44)
[2020-03-09] MEDS ORDERED: NA CHLORIDE 0.9% 0 ML ONE (03:01)
[2020-03-09] MEDS: NACHLORIDE 0.45% 1,000 ML IV SCH ×2 (04:00)
[2020-03-09 04:25] LABS: Absolute Lymphocytes (CBC) 0.8 K/uL (0.7-4.9); Basophils % 0.2 % (0-1.3); Lymphocytes % 5.3 % (15.3-44.8); MPV 7.5 fL (7.6-11.3); RBC Red Blood Cell Count 4.19 M/uL (4.33-5.43)
[2020-03-09 04:45] LABS: Magnesium 2.2 mg/dL (1.8-2.4); Phosphorus 2.8 mg/dL (2.5-4.9)
[2020-03-09 04:46] LABS: Magnesium 2.2 mg/dL (1.8-2.4); Potassium 3.7 mmol/L (3.5-5.1)
[2020-03-09] MEDS: ENOXAPARIN 40 MG/0.4 ML SQ SCH (08:00)
[2020-03-09] MEDS ORDERED: ENOXAPARIN 40 MG/0.4 ML SQ ONE (08:09)
[2020-03-09] MEDS ORDERED: D5 0.45 NS 1,000 ML IV ONE ×3 (08:24→21:56)
[2020-03-09 08:37] LABS: BUN Blood Urea Nitrogen 24 mg/dL (7-18); Bicarbonate 24 mmol/L (21-32); Glucose Level 154 mg/dL (74-106); Potassium 3.7 mmol/L (3.5-5.1); Sodium Level 149 mmol/L (136-145)
[2020-03-09] MEDS: ONDANSETRON 4 MG/2 ML VIAL IV PRN ×3 (12:33→23:07)
[2020-03-09] MEDS ORDERED: ONDANSETRON 4 MG/2 ML VIAL ONE ×3 (12:44→23:16)
[2020-03-09 15:21] LABS: BUN Blood Urea Nitrogen 18 mg/dL (7-18); Bicarbonate 25 mmol/L (21-32); Glucose Level 238 mg/dL (74-106); Potassium 3.8 mmol/L (3.5-5.1); Sodium Level 148 mmol/L (136-145)
[2020-03-09] MEDS ORDERED: clonazePAM 1 MG TAB PO ONE (16:00)
[2020-03-09 16:51] LABS: BUN Blood Urea Nitrogen 18 mg/dL (7-18); Bicarbonate 23 mmol/L (21-32); Glucose Level 236 mg/dL (74-106); Potassium 3.7 mmol/L (3.5-5.1); Sodium Level 149 mmol/L (136-145)
[2020-03-09] MEDS ORDERED: LORazepam 2 MG/ML VIAL IV ONE (17:00)
[2020-03-09] MEDS ORDERED: LORazepam 2 MG/ML VIAL ONE (17:03)
--- NOTE | 2020-03-09 18:54 | P.PN ---
Subjective Date of Service: 03/09/20 Primary Care Provider: none Chief Complaint: DKA Subjective: Improving (Patient feeling better, but continues with nausea and vomiting, unable to keep anything down) Review of Systems 10-point ROS is otherwise unremarkable Physical Examination - Vital Signs Temperature: 97.8 F Blood Pressure: 128/68 Pulse: 110 Respirations: 22 Pulse Ox (%): 97 - Physical Exam General: Alert, Oriented x3, Mild distress HEENT: Sclerae nonicteric Respiratory: Clear to auscultation bilaterally Cardiovascular: No edema, Regular rate/rhythm Gastrointestinal: Soft and benign, Non-distended, Tenderness (Very mild diffuse) Musculoskeletal: No tenderness Integumentary: No rashes Urinary: Bolden catheter Assessment & Plan Physician Review Additional Text: Diabetes mellitus type 1 complicated with diabetic ketoacidosis Gastroparesis Acute kidney injury Nausea/vomiting -gap closed, IV fluids switched to D5 1/4 NS yesterday due to hypernatremia -continue with insulin drip until patient is tolerating diet -replace potassium as needed -IV Reglan for nausea/gastroparesis, restarted Klonopin. Patient has history of cyclical vomiting syndrome -leukocytosis increased, he was treated for mild ascending colitis approximately [address] abdomen/pelvis without any acute infectious process, possibly reactive. Holding off on antibiotics for now -MELANIE improving with IV fluid hydration. Mild hydronephrosis noted on CT abdomen/pelvis which is new; nephrology consulted - initially was not improving and Bolden was placed for accurate I/Os VTE: lovenox Code: full dispo: anticipate hospitalization > 2 days Time Spent Managing Pts Care (In Minutes): 35
[2020-03-09 20:35] LABS: BUN Blood Urea Nitrogen 16 mg/dL (7-18); Bicarbonate 27 mmol/L (21-32); Glucose Level 164 mg/dL (74-106); Potassium 3.3 mmol/L (3.5-5.1); Sodium Level 150 mmol/L (136-145)
[2020-03-09] MEDS: AMITRIPTYLINE 25 MG TAB PO SCH (21:07)
[2020-03-09] MEDS: clonazePAM 0.5 MG TAB PO SCH (21:07)
[2020-03-10] MEDS ORDERED: LORazepam 2 MG/ML VIAL IV ONE ×2 (00:19→21:39)
[2020-03-10] MEDS: KCL 20 MEQ/100 mL IVPB 20 MEQ/100 ML BAG IV SCH ×2 (00:30→02:09)
[2020-03-10] MEDS ORDERED: LORazepam 2 MG/ML VIAL ONE (00:37)
[2020-03-10] MEDS ORDERED: KCL 20 MEQ/100 mL IVPB 20 MEQ/100 ML BAG IV ONE (00:37)
[2020-03-10 01:01] LABS: BUN Blood Urea Nitrogen 13 mg/dL (7-18); Bicarbonate 27 mmol/L (21-32); Glucose Level 150 mg/dL (74-106); Potassium 3.2 mmol/L (3.5-5.1); Sodium Level 149 mmol/L (136-145)
--- NOTE | 2020-03-10 01:38 | PN ---
Date of Progress Note: 03/09/2020 Chief Complaint: Acute kidney injury, acidosis, and hyperkalemia. The patient is admitted to this h ospital because of DKA, uncontrolled diabetes. History Of Present Illness: He is 29-year-old man with history of diabetes mellitus type 1. He pres ented to the emergency department with persistent nausea, vomiting for at least 1 day prior to this a dmission. The patient was admitted previously for DKA and acute kidney injury. The patient is not c ompliant with insulin. In the last few days, he was not taking any insulin as prescribed. The patie nt is lethargic. He answers questions. Review of Systems: Denies chest pain or palpitation. Denies fever or chills. Physical Examination: Lungs: Diminished breath sounds at bases. Heart: S1, S2. Abdomen: Soft, benign. Extremities: No edema. Impression And Plan: 1.Diabetic ketoacidosis. Continue insulin injury. Monitor electrolytes and azotemia. The patient has prerenal azotemia, acute tubular necrosis, nonoliguric. Abdominal CT scan without contrast showe d mild right hydronephrosis which is new from CT scan done in January. This can represent fullness o f collecting system. Plan is to recheck ultrasound in 1 to 2 days. If persistent, the patient will need to follow up with Urology. 2.Hypertension. Monitor blood pressure and adjust medications as needed. Currently, blood pressure is controlled. 3.Avoid nephrotoxic medications and monitor electrolytes closely and replace potassium and phosphorus as needed. Monitor magnesium level. FLOR/AMAURI Voice ID: [id number] Report ID: [id number]
[2020-03-10] MEDS: ONDANSETRON 4 MG/2 ML VIAL IV PRN ×3 (03:13→19:48)
[2020-03-10] MEDS ORDERED: ONDANSETRON 4 MG/2 ML VIAL ONE ×3 (03:25→19:59)
[2020-03-10] MEDS: D5 0.45 NS 1,000 ML IV SCH (03:48)
[2020-03-10] MEDS: NACHLORIDE 0.45% 1,000 ML IV SCH ×6 (04:00→20:00)
[2020-03-10 04:12] LABS: Basophils % 0.3 % (0-1.3); Hematocrit 40.1 % (39.6-49.0); Lymphocytes % 8.3 % (15.3-44.8); MPV 7.3 fL (7.6-11.3); RBC Red Blood Cell Count 4.48 M/uL (4.33-5.43)
[2020-03-10 04:30] LABS: BUN Blood Urea Nitrogen 11 mg/dL (7-18); Bicarbonate 27 mmol/L (21-32); Glucose Level 159 mg/dL (74-106); Magnesium 2.3 mg/dL (1.8-2.4); Phosphorus 1.9 mg/dL (2.5-4.9); Potassium 3.7 mmol/L (3.5-5.1); Sodium Level 149 mmol/L (136-145)
[2020-03-10] MEDS ORDERED: clonazePAM 0.5 MG TAB ONE ×2 (08:04→20:26)
[2020-03-10] MEDS ORDERED: D5.45NS W/KCL 20MEQ 0 ML IV ONE (08:04)
[2020-03-10] MEDS ORDERED: ENOXAPARIN 40 MG/0.4 ML SQ ONE (08:05)
[2020-03-10] MEDS: clonazePAM 0.5 MG TAB PO SCH ×4 (09:00→20:41)
[2020-03-10] MEDS: ENOXAPARIN 40 MG/0.4 ML SQ SCH (09:47)
[2020-03-10] MEDS ORDERED: D5 0.2 NS 1,000 ML IV ONE ×3 (09:58→23:51)
[2020-03-10] MEDS: D5 0.2 NS 1,000 ML IV SCH ×3 (10:09→23:40)
[2020-03-10] MEDS: PANTOPRAZOLE 40 MG INJ IVP SCH ×2 (10:34→20:42)
[2020-03-10] MEDS: SODIUM CHLORIDE 0.9% 10ML INJ IV PRN (10:34)
[2020-03-10] MEDS: METOCLOPRAMIDE 10 MG/2mL INJ IV PRN ×3 (10:34→23:40)
--- NOTE | 2020-03-10 10:41 | P.PN ---
Subjective Date of Service: 03/10/20 Primary Care Provider: none Chief Complaint: DKA Subjective 29-year-old male with history of diabetes mellitus type 1 presents to the ED with persistent nausea/vomiting since yesterday morning, pt was admitted few months ago with DKA and MELANIE pt was not compliant with His insulin in the last few days pt is lethargic , responsive to verbal stimuli in ER BS >700, WBC 13.4, anion gap of 28. He was given 10 units IV insulin, started on insulin drip, and given 1 amp of bicarb today still have nausea and vomiting will change fluid to D5 1/4 NS Cont insulin drip will repeat US Review of Systems: Head and Neck: No red eye. No ear pain. GI: have nausea, vomiting. : polyuria, no dysuria, no hematuria. Nursing Specialist: Not applicable. Respiratory: no SOB Cardiovascular: No chest pain. Endocrine: No polydipsia. Skin: No rash. Musculoskeletal: no edema Physical exam general: awake and alert , in mild distress Neck; Supple, No elevated JVD hear: RRR, normal S1,2 no murmur or rub Chest: CTAB , no rales or wheezes Abdomen: Soft , Nt Extremities: no edema A/P MELANIE due to dehydration resolved avoid NSAID Abdominal CT , mild Rt hydro , which is new from CT on 02/06 , this could represent fullness of collecting system , will repeat US in 1-2 days and if persisit , will refer to urology as an OP hypernatremi a will switch fluid to D5 1/4NS pseudohyperkalemia due to K shift no need for treatment cont insulin DKA cont insulin drip nausea and vomiting possibly due to DKA toatl time spent 20min Physical Examination - Vital Signs Temperature: 98.1 F Blood Pressure: 133/85 Pulse: 122 Respirations: 18 Pulse Ox (%): 99
[2020-03-10] MEDS ORDERED: METOCLOPRAMIDE 10 MG/2mL INJ ONE ×3 (10:46→23:51)
[2020-03-10] MEDS ORDERED: PANTOPRAZOLE 40 MG INJ ONE ×2 (10:46→20:26)
[2020-03-10] MEDS ORDERED: NS 0.9% VIAL 10 ML ONE (10:47)
--- NOTE | 2020-03-10 12:29 | RAD REPORT ---
EXAM DESCRIPTION: US - Renal Ultrasound-Complete - 03/10/2020 12:16 pm CLINICAL HISTORY: F/U for hydronephrosis COMPARISON: Abdomen Pelvis Wo Contrast dated 03/08/2020None. FINDINGS: The right kidney measures 11.7 x 5.2 x 5.9 cm. The left kidney measures 10.2 x 5.2 x 5.3 cm. Renal cortical thickness and echogenicity are normal. No hydronephrosis or suspicious renal mass. Urinary bladder is contracted around a Bolden catheter limiting evaluation. IMPRESSION: No hydronephrosis or suspicious renal mass. No other significant findings.
--- NOTE | 2020-03-10 13:29 | P.PN ---
Subjective Date of Service: 03/10/20 Primary Care Provider: none Chief Complaint: DKA Patient noted to be retching and vomiting today. He is not tolerating liquid diet very well. Anionic gap has closed. Patient still getting insulin drip as he is not tolerating p.o. Physical Examination - Vital Signs Temperature: 98.1 F Blood Pressure: 133/85 Pulse: 122 Respirations: 18 Pulse Ox (%): 99 - Physical Exam General: Alert, In no apparent distress HEENT: Mucous membr. moist/pink Neck: Supple, JVD not distended Respiratory: Clear to auscultation bilaterally, Normal air movement Cardiovascular: No edema, Regular rate/rhythm, Other (Tachycardic) Gastrointestinal: Normal bowel sounds, Soft and benign, Non-distended Musculoskeletal: No swelling, No erythema Integumentary: No rashes Neurological: Normal speech, Normal strength at 5/5 x4 extr Assessment And Plan - Current Problems (Diagnosis) (1) Acute renal failure Current Visit: Yes Status: Acute (2) Cyclical vomiting Current Visit: No Status: Acute (3) DKA (diabetic ketoacidoses) Onset Date: 05/31/18 Current Visit: No Status: Acute Qualifiers: Diabetes mellitus type: type 1 Diabetes mellitus complication detail: without coma Qualified Code(s): E10.10 - Type 1 diabetes mellitus with ketoacidosis without coma - Plan Hydronephrosis appear to be transient. Continue insulin drip. IV fluid adjacent to D5 half-normal saline given hypernatremia. Continue IV Reglan for cyclic vomiting. Trial of IV Protonix. Continue to monitor blood sugar per DKA protocol. Renal function has improved with IV hydration. Continue IV hydration and monitor renal panel.
[2020-03-10] MEDS ORDERED: INFLUENZA VACCINE (for 3y+) 0.5 ML DOSE IMVAC ONE (14:00)
[2020-03-10] MEDS ORDERED: PNEUMOCOCCAL VACCINE 0.5 ML IMVAC ONE (14:00)
[2020-03-10 15:32] LABS: Potassium 4.2 mmol/L (3.5-5.1)
[2020-03-10] MEDS: AMITRIPTYLINE 25 MG TAB PO SCH (20:41)
[2020-03-10 22:16] LABS: Potassium 3.7 mmol/L (3.5-5.1)
[2020-03-11] MEDS: NACHLORIDE 0.45% 1,000 ML IV SCH ×4 (04:00→12:00)
[2020-03-11 05:33] LABS: Absolute Lymphocytes (CBC) 1.4 K/uL (0.7-4.9); Basophils % 0.6 % (0-1.3); Lymphocytes % 18.5 % (15.3-44.8); MPV 7.4 fL (7.6-11.3); RBC Red Blood Cell Count 3.96 M/uL (4.33-5.43)
[2020-03-11 05:50] LABS: BUN Blood Urea Nitrogen 7 mg/dL (7-18); Bicarbonate 30 mmol/L (21-32); Glucose Level 215 mg/dL (74-106); Magnesium 1.9 mg/dL (1.8-2.4); Phosphorus 2.3 mg/dL (2.5-4.9); Potassium 3.1 mmol/L (3.5-5.1); Sodium Level 140 mmol/L (136-145)
[2020-03-11] MEDS: D5 0.2 NS 1,000 ML IV SCH ×2 (06:03→13:33)
[2020-03-11] MEDS ORDERED: D5 0.2 NS 1,000 ML IV ONE ×2 (06:12→13:45)
[2020-03-11] MEDS ORDERED: KCL 20 MEQ/100 mL IVPB 20 MEQ/100 ML BAG IV SCH ×2 (07:00)
[2020-03-11] MEDS ORDERED: POTASSIUM PHOS IN 0.9 % NACL 15 MMOL/250 ML BAG IV ONE (08:00)
[2020-03-11] MEDS ORDERED: ENOXAPARIN 40 MG/0.4 ML SQ ONE (08:53)
[2020-03-11] MEDS ORDERED: PANTOPRAZOLE 40 MG INJ ONE ×2 (08:53→20:11)
[2020-03-11] MEDS ORDERED: clonazePAM 0.5 MG TAB ONE ×2 (08:53→20:11)
[2020-03-11] MEDS ORDERED: NS 0.9% VIAL 10 ML ONE (08:54)
[2020-03-11] MEDS: clonazePAM 0.5 MG TAB PO SCH ×4 (09:00→20:26)
[2020-03-11] MEDS: ENOXAPARIN 40 MG/0.4 ML SQ SCH (09:14)
[2020-03-11] MEDS: PANTOPRAZOLE 40 MG INJ IVP SCH ×2 (09:14→20:26)
[2020-03-11] MEDS: SODIUM CHLORIDE 0.9% 10ML INJ IV PRN ×2 (09:15→20:27)
[2020-03-11] MEDS: METOCLOPRAMIDE 10 MG/2mL INJ IV PRN ×2 (09:30→20:26)
[2020-03-11] MEDS ORDERED: METOCLOPRAMIDE 10 MG/2mL INJ ONE ×2 (09:42→20:11)
[2020-03-11] MEDS ORDERED: MAGNESIUM SULFATE 1 gm IVPB 1 GM/100 ML BAG IV ONE ×2 (11:00→12:52)
[2020-03-11] MEDS: KCL 20 MEQ/100 mL IVPB 20 MEQ/100 ML BAG IV SCH ×3 (12:40→23:00)
[2020-03-11] MEDS ORDERED: KCL 20 MEQ/100 mL IVPB 20 MEQ/100 ML BAG IV ONE ×2 (12:52→16:22)
[2020-03-11 14:25] LABS: BUN Blood Urea Nitrogen 6 mg/dL (7-18); Bicarbonate 31 mmol/L (21-32); Glucose Level 142 mg/dL (74-106); Potassium 3.3 mmol/L (3.5-5.1); Sodium Level 142 mmol/L (136-145)
--- NOTE | 2020-03-11 14:28 | P.PN ---
Subjective Date of Service: 03/11/20 Primary Care Provider: none Chief Complaint: DKA Patient still not tolerating feeding and having nausea and vomiting. No fever. Physical Examination - Vital Signs Temperature: 97.6 F Blood Pressure: 138/87 Pulse: 101 Respirations: 22 Pulse Ox (%): 95 - Physical Exam General: Alert, In no apparent distress HEENT: Mucous membr. moist/pink Neck: JVD not distended Respiratory: Clear to auscultation bilaterally, Normal air movement Cardiovascular: No edema, Regular rate/rhythm, Normal S1 S2, Other (Tachycardia) Gastrointestinal: Normal bowel sounds, Soft and benign, Non-distended, No tenderness Musculoskeletal: No swelling, No erythema Integumentary: No rashes Assessment And Plan - Current Problems (Diagnosis) (1) Acute renal failure Current Visit: Yes Status: Acute (2) Cyclical vomiting Current Visit: No Status: Acute (3) DKA (diabetic ketoacidoses) Onset Date: 05/31/18 Current Visit: No Status: Acute Qualifiers: Diabetes mellitus type: type 1 Diabetes mellitus complication detail: without coma Qualified Code(s): E10.10 - Type 1 diabetes mellitus with ketoacidosis without coma - Plan Transition from insulin drip to subcutaneous insulin Continue IV hydration with D5 half-normal saline. Continue IV Reglan and protonix for cyclic vomiting. GI consult Renal function has improved with IV hydration. Continue to monitor renal panel.
[2020-03-11] MEDS ORDERED: D50W 25 GM/50 ML SYRINGE IV PRN ×2 (14:45→18:35)
[2020-03-11] MEDS ORDERED: GLUCAGON 1 MG/VIAL IM PRN ×2 (14:45→18:35)
[2020-03-11 16:22] VITALS: O2SAT 96
[2020-03-11] MEDS: ONDANSETRON 4 MG/2 ML VIAL IV PRN (17:25)
[2020-03-11] MEDS ORDERED: INSULIN -REGULAR HUMAN 50 UNIT/0.5 ML ML ONE (17:31)
[2020-03-11] MEDS ORDERED: ONDANSETRON 4 MG/2 ML VIAL ONE (17:36)
[2020-03-11] MEDS ORDERED: INSULIN -REGULAR HUMAN 50 UNIT/0.5 ML ML SQ SCH (18:00)
[2020-03-11] MEDS ORDERED: INSULIN -REGULAR HUMAN 100 UNIT in NA CHLORIDE 0.9% 100 ML IV SCH ×2 (18:45→19:00)
[2020-03-11] MEDS: D5 0.2 NS 500 ML IV SCH ×2 (20:20→20:26)
[2020-03-11] MEDS: AMITRIPTYLINE 25 MG TAB PO SCH (20:26)
[2020-03-11 21:42] LABS: Potassium 3.4 mmol/L (3.5-5.1)
[2020-03-11] MEDS ORDERED: KCL 20 MEQ/100 mL IVPB 40 MEQ/200 ML BAG IV ONE (23:11)
[2020-03-12] MEDS: KCL 20 MEQ/100 mL IVPB 20 MEQ/100 ML BAG IV SCH (00:16)
[2020-03-12] MEDS: D5 0.2 NS 500 ML IV SCH ×3 (00:16→06:14)
--- NOTE | 2020-03-12 01:23 | PN ---
Date of Progress Note: 03/11/2020 Subjective: The patient was admitted with acute kidney injury, acidosis secondary to DKA. Glucose d iuresis after hydration. Kidney function has been normalized. Physical Examination: Vital Signs: Blood pressure 137/84, pulse of 100, O2. Chest: Clear to auscultation. Heart: S1, S2. Regular. Abdomen: Soft, nontender. Extremities: No edema. Neurological: Alert, oriented x3. No focal. Laboratory Data: WBC 7.4, H and H 12.7 and 35.5, platelet 155. Sodium 142, potassium 3.3, bicarb 31 , BUN 6, creatinine 0.8, calcium 8.5. Current Medications: 1.Amitriptyline. 2.Klonopin. 3.Zofran. 4.Pantoprazole. 5.Insulin. 6.IV fluid. Assessment And Plan: 1.Acute kidney injury secondary to prerenal glucose diuresis, recovered, resolved. 2.Hypokalemia. We will supplement extra-supportive KCl today. 3.Hypernatremia, resolved. 4.Hypomagnesemia. Will supplement. 5.Hypophosphatemia. Continue to supplement. 6.Acidosis secondary to diabetic ketoacidosis. Continue insulin drip. Acidosis has been resolved. 7.Diabetic ketoacidosis, resolved. Currently, patient on insulin drip, because of uncontrolled diab etes, poor intake. KAYLA/AMAURI Voice ID: [id number] Report ID: [id number]
[2020-03-12] MEDS: METOCLOPRAMIDE 10 MG/2mL INJ IV PRN (04:56)
[2020-03-12] MEDS ORDERED: METOCLOPRAMIDE 10 MG/2mL INJ ONE (05:04)
[2020-03-12 05:17] LABS: BUN Blood Urea Nitrogen 7 mg/dL (7-18); Bicarbonate 29 mmol/L (21-32); Glucose Level 144 mg/dL (74-106); Magnesium 2.2 mg/dL (1.8-2.4); Phosphorus 2.2 mg/dL (2.5-4.9); Potassium 3.6 mmol/L (3.5-5.1); Sodium Level 139 mmol/L (136-145)
[2020-03-12] MEDS ORDERED: POTASSIUM PHOS IN 0.9 % NACL 15 MMOL/250 ML BAG IV ONE (08:00)
[2020-03-12] MEDS: clonazePAM 0.5 MG TAB PO SCH ×2 (08:43→14:25)
[2020-03-12] MEDS: ENOXAPARIN 40 MG/0.4 ML SQ SCH (08:43)
[2020-03-12] MEDS: PANTOPRAZOLE 40 MG INJ IVP SCH (08:43)
[2020-03-12] MEDS: SODIUM CHLORIDE 0.9% 10ML INJ IV PRN (08:43)
[2020-03-12] MEDS ORDERED: ENOXAPARIN 40 MG/0.4 ML SQ ONE (08:55)
[2020-03-12] MEDS ORDERED: clonazePAM 0.5 MG TAB ONE ×2 (08:55→14:24)
[2020-03-12] MEDS ORDERED: PANTOPRAZOLE 40 MG INJ ONE (08:55)
[2020-03-12] MEDS ORDERED: GLUCAGON 1 MG/VIAL IM PRN ×2 (10:40→12:39)
[2020-03-12] MEDS ORDERED: D50W 25 GM/50 ML SYRINGE IV PRN ×2 (10:40→12:39)
[2020-03-12] MEDS ORDERED: INSULIN -REGULAR HUMAN 50 UNIT/0.5 ML ML SQ SCH (11:30)
[2020-03-12] MEDS ORDERED: INSULIN -REGULAR HUMAN 50 UNIT/0.5 ML ML ONE (11:39)
[2020-03-12] MEDS ORDERED: INSULIN GLARGINE 100 UNITS/ML SQ ONE ×2 (11:54→12:40)
--- NOTE | 2020-03-12 12:12 | P.DS ---
Admission Date: 03/08/20 Discharge Date: 03/12/20 Primary Care Provider: none Disposition: ROUTINE DISCHARGE Discharge Condition: FAIR Reason for Admission: DKA Consultations: Nephrology - Problems (1) Acute renal failure Current Visit: Yes Status: Acute (2) Cyclical vomiting Current Visit: No Status: Acute (3) DKA (diabetic ketoacidoses) Onset Date: 05/31/18 Current Visit: No Status: Acute Qualifiers: Diabetes mellitus type: type 1 Diabetes mellitus complication detail: without coma Qualified Code(s): E10.10 - Type 1 diabetes mellitus with ketoacidosis without coma Brief History of Present Illness: 29-year-old gentleman with a history of type 1 diabetes presented to the emergency department with a complaint of persistent nausea and vomiting. He stated he ran out of his erythromycin. His blood sugar was severely elevated to 700. UA showed no evidence of infection. Blood work demonstrated DKA with severe acidemia. DKA protocol was initiated with insulin drip and aggressive IV hydration. Patient was admitted to ICU for further management. Hospital Course: Patient treated for DKA with insulin drip and aggressive IV hydration. He had evidence of acute renal failure which resolved with IV resuscitation. The nausea and vomiting persisted and patient did not tolerate oral intake for several days even after the DKA resolved. Today patient has been able to tolerate liquid and solid diet. He has not vomited and denies nausea. He is eager to go home. His insulin regimen has been resumed on discharge. He was treated with IV Protonix for possible gastritis. He is prescribed Protonix to take as an outpatient. His other home medications are resumed on discharge. He is prescribed erythromycin and Reglan for a couple of weeks for gastroparesis. Vital Signs/Physical Exam: Temp Pulse Resp BP Pulse Ox 97.9 F 105 H 20 138/92 H 98 03/12/20 04:00 03/12/20 06:15 03/12/20 06:15 03/12/20 06:15 03/12/20 06:15 General: Alert, In no apparent distress HEENT: Mucous membr. moist/pink Neck: Supple Respiratory: Clear to auscultation bilaterally, Normal air movement Cardiovascular: No edema, Regular rate/rhythm, Normal S1 S2 Gastrointestinal: Normal bowel sounds, Soft and benign, No tenderness Musculoskeletal: No swelling, No tenderness Integumentary: No rashes, No erythema Neurological: Normal speech, Normal strength at 5/5 x4 extr Laboratory Data at Discharge: WBC 7.4 K/uL (4.3-10.9) D 03/11/20 05:15 Hgb 12.7 g/dL (13.6-17.9) L 03/11/20 05:15 Hct 35.0 % (39.6-49.0) L 03/11/20 05:15 Plt Count 155 K/uL (152-406) 03/11/20 05:15 Sodium 139 mmol/L (136-145) 03/12/20 04:47 Potassium 3.6 mmol/L (3.5-5.1) 03/12/20 04:47 BUN 7 mg/dL (7-18) 03/12/20 04:47 Creatinine 0.79 mg/dL (0.55-1.3) 03/12/20 04:47 Glucose 144 mg/dL (74-106) H 03/12/20 04:47 Phosphorus 2.2 mg/dL (2.5-4.9) L 03/12/20 04:47 Magnesium 2.2 mg/dL (1.8-2.4) 03/12/20 04:47 Total Bilirubin 1.8 mg/dL (0.2-1.0) H 03/08/20 07:33 AST 30 U/L (15-37) 03/08/20 07:33 ALT 55 U/L (12-78) 03/08/20 07:33 Alkaline Phosphatase 81 U/L (45-117) 03/08/20 07:33 Lipase 181 U/L (73-393) 03/08/20 07:33 Home Medications: Insulin Aspart [Novolog Flexpen] See Protocol SQ ACHS 03/08/20 Insulin Glargine Human [Lantus*] 35 units SQ BEDTIME 03/08/20 Insulin Glargine Human [Lantus*] 35 units SQ DAILY WITH BREAKFAST 03/08/20 Metoclopramide [Reglan] 5 mg PO TID PRN #20 tab 03/12/20 Pantoprazole [Protonix Tab] 40 mg PO DAILY #30 tab 03/12/20 clonazePAM [Klonopin*] 0.5 mg PO TID #0 tab 03/12/20 New Medications: Pantoprazole [Protonix Tab] 40 mg PO DAILY #30 tab Metoclopramide [Reglan] 5 mg PO TID PRN #20 tab PRN Reason: Nausea / Vomiting Diet: ADA Activity: Ad melonie Followup: NONE,NONE [Primary Care Provider] - 1-2 Weeks Time spent managing pt's care (in minutes): 40
[2020-03-12 16:59] VITALS: TEMP 98.5
[2020-03-12 17:01] VITALS: BP 147/95
--- NOTE | 2020-03-13 01:50 | PN ---
Date of Progress Note: 03/12/2020 Chief Complaint: Acute kidney injury due to prerenal azotemia, renal hypoperfusion in setting of DKA. History Of Present Illness: Patient received insulin drip and nausea and vomiting is subsiding. Patient denies chest pain, palpitation. Physical Examination: Lungs: Diminished breath sounds at bases. Heart: S1, S2. Abdomen: Soft, benign. Extremities: No edema. Laboratory Data: Creatinine 0.8, BUN 6, calcium 8.5, sodium 142, potassium 3.3, bicarbonate 31. Impression And Plan: 1. Acute kidney injury, resolved. Patient developed acute kidney injury in the setting of diabetic ketoacidosis. Continue to avoid nephrotoxic medication. Patient is on insulin. 2. Hypokalemia, replacement as needed. 3. Hypernatremia, resolved. 4. Hypomagnesemia. Supplementation started, acidosis secondary to diabetic ketoacidosis. Patient completed insulin drip and electrolytes and acidosis has stabilized. FLOR/AMAURI Voice ID: [id number] Report ID: [id number] MATILDA
== END 2020-03-12 16:50 | disposition home or self-care (01) | DRG 637 ==
LOC: ER 06:17 → ERHOLD 10:19
PROVIDERS: ADMIT Hospitalist; ATTEND Internal Medicine
DX: E10.10 Type 1 diabetes mellitus with ketoacidosis without coma (principal); N17.0 Acute kidney failure with tubular necrosis; N13.30 Unspecified hydronephrosis; E87.0 Hyperosmolality and hypernatremia; E10.43 Type 1 diabetes mellitus with diabetic autonomic (poly)neuropathy; K31.84 Gastroparesis; E86.0 Dehydration; E87.6 Hypokalemia; E83.42 Hypomagnesemia; E83.39 Other disorders of phosphorus metabolism; K29.70 Gastritis, unspecified, without bleeding; Z79.4 Long term (current) use of insulin; Z91.14 Patient's other noncompliance with medication regimen; Z20.828 Contact with and (suspected) exposure to other viral communicable diseases
CPT/HCPCS: 36415; 74176; 76770; 80048; 80076; 80307; 81003; 81015; 82010; 82805; 82947; 83525; 83690; 83735; 84100; 85025; 96361; 96365; 96366; 96375; 99285; C9113; J1650; J1815; J2405; J2550; J2765; J3475; J3480; J7030; J7799; U0003

== ENCOUNTER 2021-07-06 12:46 | Emergency (ER) | payer SELFPAY ==
--- OUTSIDE RECORDS SUMMARY | 2021-07-06 12:51 | XMS REPORT | Continuity of Care Document ---
:1990 Author Organization [facility] t Address [address] [place] [address] Care Team Providers Name Role Phone Ariana Avila Primary Care Physician JB Attending Clinician Unavailable Gabbi GARZA Attending Clinician Jb EDWARDS Attending Clinician Doctor Unassigned, Name Attending Clinician Unavailable Mar GARZA Attending Clinician Yvonne Attending Clinician Unavailable Butch GARZA L Attending Clinician Argelia Romero Attending Clinician INNA MARTINEZ Attending Clinician Unavailable Yvonne Admitting Clinician Unavailable INNA MARTINEZ Admitting Clinician Unavailable Payers Payer Name Policy Type Policy Number Effective Date Expiration Date S ource Problems Condition Condition Condition Status Onset Resolution Last Treating Co mments Source Name Details Category Date Date Treatment Clinician Date Penile Penile Problem Active [place] warts Warts 10-21 Family 00:00: Practic 00 e Hypoglycem Hypoglycem Problem Active V illage ia ia 10-21 Family 00:00: Practic 00 e Body mass Body Mass Problem Active Alice ry index Index 10-21 Family -29 - 25-29 - 00:00: Practic overweight Overweight 00 e Orgasm Orgasm Problem Active [place] without without 08-28 Family ejaculatio Ejaculatio 00:00: Pr actic n n 00 e Cognitive Cognitive Problem Active [place] ry deficit in Deficit in 5-07 Fa radha attention Attention 00:00: Prac tic 00 e Family Family Problem Active [facility] history of History of 3-26 Fa radha diabetes Diabetes 00:00: Practi c mellitus Mellitus 00 e Family Family Problem Active [facility] history of History of 3- Fa radha cardiac Cardiac 00:00: Practic disorder Disorder 00 e Type 1 Type 1 Problem Active [facility] diabetes Diabetes - Family mellitus Mellitus 00:00: Practi c uncontroll Uncontroll 00 e ed ed Restless 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[place] ge legs Legs 3- Family 00:00: Practic 00 e Ulcer of Ulcer of Problem Active [place] ge toe Toe 07-17 Family 00:00: Practic 00 e ACCIDENT Diagnosis Active 2017-03-28 M emoria 11-22 13:59:00 l ACCIDENT 13:00: Ministerio n 00 Active 11/22/2016 [facility] Attention Attention Disease Active 2006-04 Overview: Univers deficit deficit 0-22 Formattin ity o f hyperactiv hyperactiv 00:00: g of this [place] ity ity 00 note Medical disorder disorder might be Bran ch (ADHD) (ADHD) different from the original. ICD10 Diagnosis Term Inventory Representative Utility Uncontroll Uncontroll Disease Active Overview : Univers ed type 1 ed type 1 6-10 Formattin i ty of diabetes diabetes 00:00: g of this Leo as mellitus mellitus 00 note Medica l might be Branch different from the original. Dx age 4ICD10 Diagnosis Term Inventory Representative Utility Trichomoni Trichomoni Disease Active U nivers asis asis ity of [facility] Diabetes Problem Resolve 2016-11-26 Me moria mellitus d 05:37:49 l (disorder) Diabetes He rmann mellitus (disorder) Resolved Problem 11/26/2016 Anatoly History of Past Illness Condition Condition Condition Status Onset Resolution Last Treating Co mments Source Name Details Category Date Date Treatment Clinician Date Strain of Problem 2016-11-26 2016-11-26 Memoria muscle, 11-23 05:37:49 05:37:49 l fascia and Strain 05:00: Herm phyllis tendon at of muscle, 00 neck fascia and level, tendon at initial neck encounter level, initial encounter 11/23/2016 11/26/2016 [facility] Allergies, Adverse Reactions, Alerts Allergy Allergy Status Severity Reaction(s) Onset Inactive Treating Comm ents Source Name Type Date Date Clinician NO KNOWN Drug Active Univers ALLERGIE Class ity of [facility] [place] [facility] [place] Social History Social Habit Start Date Stop Date Quantity Comments Source Exposure to Not sure University of SARS-CoV-2 [place] [facility] (event) Branch History [facility] University o f Alcohol Comment [place] [facility] History of Snuff User University of tobacco use [facility] Alcohol intake 2021-04-27 2021-04-27 Current drinker Unive rsity of 00:00:00 00:00:00 of alcohol [place] [facility] (finding) Branch History [facility] 2020-02-03 2020-02-03 2 University o f Alcohol Frequency 00:00:00 00:00:00 [place] [facility] History [facility] 2020-02-03 2020-02-03 99 University o f Alcohol Std 00:00:00 00:00:00 [place] [facility] Drinks Branch History [facility] 2020-02-03 2020-02-03 99 University o f Alcohol Binge 00:00:00 00:00:00 [place] [facility] Tobacco Comment 2008-08-06 2008-08-06 on and off Universit y of 00:00:00 00:00:00 [facility] Sex Ass[birth year] At [birth year] Universit y of 00:00:00 00:00:00 [facility] Smoking Status Start Date Stop Date Source Never smoker [facility] Branch Medications Ordered Filled Start Stop Current Ordering Indication Dosage Frequency Signature Comments Components Source Medication Medication Date Date Medication? Clinician (SIG) Name Name proMETHazin No 25mg 25 mg, IV Univers e 07-06-15 Piggyback, ity of (PHENERGAN) 07:30: 09:27 at 200 Leo as 25 mg in NS 00 :00 mL/hr Medical 50 mL IV Administer Branc h piggyback over 15 (CNR) Minutes, ONCE, 1 dose, On Mon07/06/21 at 0230, BRAXTON NaCl 0.9% 2021- No 1000mL at 999 Uni vers (NS) bolus 07-06-15 mL/hr, ity of infusion 07:30: 09:27 1,000 mL, Leo as 1,000 mL 00 :00 IV Medical Infusion, Branch ONCE, 1 dose, On Mon07/06/21 at 0230, STAT proMETHazin 2021-0 Yes [id number] 25mg Take 1 Univers e 25 mg 3-15 tablet by ity of tablet 00:00: mouth [place] 00 every 6 Medical (six) Branch hours as needed for Nausea and Vomiting (N/V). insulin 2019-04 Yes inject Univers aspart 0-12 under the ity of (NOVOLOG 15:02: [place] FLEXPEN 09 sliding Medical U-100 scale and Branch INSULIN SC) carb intake insulin 2019-04 Yes inject Univers aspart 0-12 under the ity of (NOVOLOG 15:02: skin[place] FLEXPEN 09 sliding Medical U-100 scale and Branch INSULIN SC) carb intake insulin 2019-04 Yes inject Univers aspart 0-12 under the ity of (NOVOLOG 15:02: skin. [place] FLEXPEN 09 sliding Medical U-100 scale and Branch INSULIN SC) carb intake insulin 2019-04 Yes inject Univers aspart 0-12 under the ity of (NOVOLOG 15:02: skin. [place] FLEXPEN 09 sliding Medical U-100 scale and Branch INSULIN SC) carb intake cephALEXin 2018-04 Yes TAKE 1 Unive rs 500 mg 0-03 CAPSULE BY ity of capsule 00:00: MOUTH 00 THREE Medical TIMES Branch DAILY cephALEXin 2018-04 Yes TAKE 1 Unive rs 500 mg 0-03 CAPSULE BY ity of capsule 00:00: MOUTH THREE Medical TIMES Branch DAILY cephALEXin 2018-04 Yes TAKE 1 Unive rs 500 mg 0-03 CAPSULE BY ity of capsule 00:00: MOUTH 00 THREE Medical TIMES Branch DAILY cephALEXin 2018-04 Yes TAKE 1 Unive rs 500 mg 0-03 CAPSULE BY ity of capsule 00:00: MOUTH 00 THREE Medical TIMES Branch DAILY Insulin Yes 30U inject Univers Glargine 01-08 30-35 ity of (LANTUS 00:00: Units [place] SOLOSTAR 00 under the Medica l U-100 skin 2 Branch INSULIN) (two) 100 unit/mL times (3 mL) daily. injection Insulin Yes 30U inject Univers Glargine 01-08 30-35 ity of (LANTUS 00:00: Units [place] SOLOSTAR 00 under the Medica l U-100 skin 2 Branch INSULIN) (two) 100 unit/mL times (3 mL) daily. injection Insulin Yes 30U inject Univers Glargine 01-08 30-35 ity of (LANTUS 00:00: Units SOLOSTAR 00 under the Medica l U-100 skin 2 Branch INSULIN) (two) 100 unit/mL times (3 mL) daily. injection Insulin Yes 30U inject Univers Glargine 01-08 30-35 ity of (LANTUS 00:00: Units SOLOSTAR 00 under the Medica l U-100 skin 2 Branch INSULIN) (two) 100 unit/mL times (3 mL) daily. injection clindamycin Yes TAKE 1 Univ ers 300 mg 9-13 CAPSULE BY ity of capsule 00:00: MOUTH Medical TIMES DAILY mupirocin 2 Yes APPLY ON Un kiran % ointment 9-13 THE SKIN ity o f 00:00: TWICE A Medical Branch clindamycin Yes TAKE 1 Univ ers 300 mg 9-13 CAPSULE BY ity of capsule 00:00: MOUTH TIMES DAILY mupirocin 2 Yes APPLY ON Un kiran % ointment 9-13 THE SKIN ity o f 00:00: TWICE A Medical Branch clindamycin Yes TAKE 1 Univ ers 300 mg 9-13 CAPSULE BY ity of capsule 00:00: MOUTH Medical TIMES DAILY mupirocin 2 Yes APPLY ON Un kiran % ointment 9-13 THE SKIN ity o f 00:00: TWICE A Medical Branch clindamycin Yes TAKE 1 Univ ers 300 mg 9-13 CAPSULE BY ity of capsule 00:00: MOUTH Medical TIMES DAILY mupirocin 2 Yes APPLY ON Un kiran % ointment 9-13 THE SKIN ity o f 00:00: TWICE A Medical Branch Cyclobenzap Yes 10 mg, PO, Memoria rine 8-03 TID, PRN l hydrochlori 02:13: Muscle Herm phyllis de 10 MG 00 Spasm, X Oral Tablet 10 day, # [Flexeril] 30 tab, 0 Refill(s) Motrin 800 2017-0 Yes 800 mg = 1 M emoria mg oral 8-03 tab, PO, l tablet 02:13: TID, X 7 Kvng 00 day, # 21 tab, 0 Refill(s) Adderall 5 Adderall 5 No 1 BID Adderall 5 Village mg tablet mg tablet mg tablet Family Take 1 Take 1 Take 1 Practic tablet tablet tablet e twice a day twice a day twice a by oral by oral day by route. route. oral route. Contour Contour No Contour Villag e Next Test Next Test Next Test Family Strips Strips Strips Practic e FreeStyle FreeStyle No FreeStyle [place] Alessandra 14 Alessandra 14 Alessandra 14 Fam tabitha Day Sensor Day Sensor Day Sensor Practic e FreeStyle FreeStyle No FreeStyle [facility] Alessandra 14 Alessandra 14 Alessandra 14 Fam tabitha Day Sensor Day Sensor Day Sensor Practic kit APPLY 1 kit APPLY 1 kit APPLY e PATCH TO PATCH TO 1 PATCH TO ARM AND ARM AND ARM AND CHANGE CHANGE CHANGE EVERY 14 EVERY 14 EVERY 14 DAYS DAYS DAYS Lantus Lantus No Lantus [facility] U-100 U-100 U-100 Family Insulin 100 Insulin 100 Insulin Practic unit/mL unit/mL 100 e subcutaneou subcutaneou unit/mL s solution s solution subcutaneo INJECT 20 INJECT 20 us UNITS UNITS solution SUBCUTANEOU SUBCUTANEOU INJECT 20 SLY WITH SLY WITH UNITS BREAKFAST BREAKFAST SUBCUTANEO IN THE IN THE USLY WITH MORNING MORNING BREAKFAST THEN INJECT THEN INJECT IN THE 10 UNITS AT 10 UNITS AT MORNING BEDTIME BEDTIME THEN INJECT 10 UNITS AT BEDTIME metoclopram metoclopram No metoclopra [facility] prosper 5 mg prosper 5 mg mide 5 mg Fa radha tablet TAKE tablet TAKE tablet Practic 1 TABLET BY 1 TABLET BY TAKE 1 e MOUTH THREE MOUTH THREE TABLET BY TIMES DAILY TIMES DAILY MOUTH BEFORE BEFORE THREE MEAL(S) MEAL(S) TIMES NEEDED FOR NEEDED FOR DAILY NAUSEA AND NAUSEA AND BEFORE VOMITING VOMITING MEAL(S) NEEDED FOR NAUSEA AND VOMITING Microlet Microlet No Microlet Alice ry Lancet Lancet Lancet Family Practic e Novolog Novolog No Novolog Villag e Flexpen Flexpen Flexpen Family U-100 U-100 U-100 Practic Insulin Insulin Insulin e aspart 100 aspart 100 aspart 100 unit/mL (3 unit/mL (3 unit/mL (3 mL) mL) mL) subcutaneou subcutaneou subcutaneo s Give s Give us Give before before before meals using meals using meals ICR 1:7; CF ICR 1:7; CF using ICR 1:50; TDD 1:50; TDD 1:7; CF 50 50 1:50; TDD 50 One-A-Day One-A-Day No One-A-Day [place] Men Men Men Family VitaCraves VitaCraves VitaCraves Practic e Pen Needle Pen Needle No Pen Needle [place] 30 gauge x 30 gauge x 30 gauge x Family 16" 16" 09/06" Practic e Tresiba Tresiba No Tresiba Villag e FlexTouch FlexTouch FlexTouch Family U-200 U-200 U-200 Practic insulin 200 insulin 200 insulin e unit/mL (3 unit/mL (3 200 mL) mL) unit/mL (3 subcutaneou subcutaneou mL) s pen Give s pen Give subcutaneo 34 units in 34 units in us pen AM and AM and Give 34 increase as increase as units in directed: directed: AM and TDD 80 TDD 80 increase as directed: TDD 80 Immunizations Ordered Filled Immunization Date Status Comments Sour e Immunization Name Name Influenza Virus 2008-02-15 Completed Universit y of Vaccine 00:00:00 [facility] Influenza Virus 2008-02-15 Completed Universit y of Vaccine 00:00:00 [facility] Influenza Virus 2008-02-15 Completed Universit y of Vaccine 00:00:00 [facility] Influenza Virus 2008-02-15 Completed Universit y of Vaccine 00:00:00 [facility] Influenza Virus 2004-02-19 Completed Universit y of Vaccine 00:00:00 [facility] Influenza Virus 2004-02-19 Completed Universit y of Vaccine 00:00:00 [facility] Influenza Virus 2004-02-19 Completed Universit y of Vaccine 00:00:00 [facility] Influenza Virus 2004-02-19 Completed Universit y of Vaccine 00:00:00 [facility] Vital Signs Vital Name Observation Time Observation Value Comments Source Systolic blood 2021-07-06 08:28:15 120 mm[Hg] Univer sity of pressure [facility] Diastolic blood 2021-07-06 08:28:15 82 mm[Hg] Unive rsity of pressure [facility] Heart rate 2021-07-06 08:28:15 99 /min Universi ty of [facility] Respiratory rate 2021-07-06 08:28:15 20 /min [facility] Oxygen saturation in 2021-07-06 08:28:15 100 /min [facility] Arterial blood by [facility] Pulse oximetry Branch Body temperature 2021-07-06 02:17:00 37.11 Deb [facility] weight 2021-07-06 02:17:00 86.183 kg Universi ty [facility] BMI 2021-07-06 02:17:00 27.26 kg/m2 [facility]i [facility] Body weight 2021-04-22 21:56:00 88.451 kg Universi [facility] BMI 2021-04-22 21:56:00 27.98 kg/m2 [facility] BP Diastolic 2020-10-21 00:00:00 67 mm[Hg] [facility] Height 2020-10-21 00:00:00 71 [in_i] [facility] BMI (Body Mass 2020-10-21 00:00:00 25.7 kg/m2 Villag e Family Index) Practice BP Systolic 2020-10-21 00:00:00 101 mm[Hg] [facility] Body Weight 2020-10-21 00:00:00 184.2 [lb_av] [facility] Height 2020-06-19 00:00:00 71 [in_i] [facility] BMI (Body Mass 2020-06-19 00:00:00 26.2 kg/m2 Villag e Family Index) Practice Body Weight 2020-06-19 00:00:00 188 [lb_av] [facility] Respitory Rate 2016-11-24 03:00:00 Nik Spicer Systolic (mm Hg) 2016-11-24 03:00:00 Praneeth Calderon Diastolic (mm Hg) 2016-11-24 03:00:00 Mil Calderon Temperature Oral (F) 2016-11-24 03:00:00 98.2 F Alva Calderon Heart Rate 2016-11-24 03:00:00 Alva Calderon BMI Calculated 2016-11-24 01:48:00 Nik Spicer Height 2016-11-24 01:48:00 177.8 cm Alva Calderon Weight 2016-11-24 01:48:00 Alva Calderon Respitory Rate 2016-11-24 01:48:00 Nik Spicer Heart Rate 2016-11-24 01:48:00 Alva Calderon Systolic (mm Hg) 2016-11-24 01:48:00 Praneeth Calderon Diastolic (mm Hg) 2016-11-24 01:48:00 Mil Calderon Temperature Oral (F) 2016-11-24 01:48:00 98.1 F Alva Calderon Procedures Procedure Date / Time Performed Performing Clinician Sourc e POCT GLUCOSE 2021-07-06 09:31:00 Jb [facility] (AUTOMATED) [facility] Branch LIPASE 2021-07-06 03:10:[address] [facility] TROPONIN I 2021-07-06 03:10:00 Juan C Kunz [facility] COMP. METABOLIC PANEL 2021-07-06 03:10:00 Oswaldo Muhammad [facility] ([id number]) [facility] CBC WITH DIFF 2021-07-06 03:10:[address] [facility] EXTRA TUBE DK. GREEN 2021-07-06 03:10:00 Oswaldo Muhammad [facility] CONSENT/REFUSAL FOR 2021-07-06 02:15:31 [facility] Unassigned, [facility] Name [facility] TREATMENT [facility] 2021-05-24 21:01:50 Doctor Unassigned, No U [facility] FOR FREE TREATMENT Name [facility] h FORM Removal of silastic [facility] Her fox tubes from ear Plan of Care Planned Activity Planned Date Details Comments Source Diagnostic Test 2020-10-21 glucose, fingerstick, Alice ry Family Pending 00:00:00 blood [code = Practice glucose, fingerstick, blood] Diagnostic Test 2020-10-21 hemoglobin A1C, Village Armin leblanc Pending 00:00:00 fingerstick [code = Practice hemoglobin A1C, fingerstick] Encounters Start End Encounter Admission Attending Care Care Encounter Source Date/Time Date/Time Type Type Clinicians Facility Department ID 2021-07-052021-07-06 Emergency X JB [facility] ERT [id number] Univers 21:19:00 04:37:00 OSWALDO ity of [facility] 2021-07-05 2021-07-06 Emergency Ziggy Seo TRAUMA [id number] [id number] Univers 21:19:00 04:37:00 Oswaldo Muhammad MOIRA [id number] it[id number] [id number] [facility] 014 Branch 2021-05-24 2021-05-24 Orders Doctor KHANH [id number] Univers 00:00:00 00:00:00 Only Unassigned, MARSHALL [id number] ity of [place] [facility] [id number] Leo as [id number] [facility] 009 Branch 2021-04-22 2021-04-22 Office Mar [facility] [id number] Univers 14:45:00 16:44:38 Visit Beth MATTHEWS [id number] ity of [place].2.[place] [id number] [facility] [place] 136 Branch DIABETES CLINIC 2021-01-07 2021-01-07 Outpatient Daniel_T VFP VFP [id number] [address] [place] [address] 02:08:00 02:08:00 [id number] Family Practic e 2020-12-03 2020-12-03 Outpatient Daniel_T VFP VFP [id number] [address] [place] [address] 01:20:00 01:20:00 [id number] Family Practic e 2020-10-29 2020-10-29 Outpatient Daniel_T VFP VFP [id number] [address] [place] [address] 01:46:00 01:46:00 [id number] Family Practic e 2020-10-23 2020-10-23 Outpatient Daniel_T VFP VFP [id number] [address] [place] [address] 09:07:00 09:07:00 [id number] Family Practic e 2020-10-21 2020-10-21 Outpatient Daniel_T VFP VFP [id number] [address] [place] [address] 06:24:00 06:24:00 [id number] Family Practic e 2020-10-21 2020-10-21 Ted VFP [place] - [id number] V illage 00:00:00 00:00:00 [facility] Family [place]letonDoroteo MD: [id number] JESSIKA_TRESSA_Oliver hay [facility], [address], [place] [address] , Ph. 2020-09-25 2020-09-25 Outpatient Daniel_T VFP VFP [id number] [address] [place] [address] 01:01:00 01:01:00 [id number] Family Practic e 2020-08-21 2020-08-21 Outpatient Daniel_T VFP VFP [id number] [address] [place] [address] 01:02:00 01:02:00 [id number] Family Practic e 2020-08-14 2020-08-14 Outpatient Daniel_T VFP VFP [id number] [address] [place] [address] 02:02:00 02:02:00 [id number] Family Practic e 2020-07-03 2020-07-03 Outpatient Daniel_T VFP VFP [id number] [address] [place] [address] 01:07:00 01:07:00 [id number] Family Practic e 2020-06-19 2020-06-19 Outpatient Daniel_T VFP VFP [id number] [address] [place] [address] 05:48:00 05:48:00 [id number] Family Practic e 2020-06-19 2020-06-19 Ted VFP [place] - [id number] V illage 00:00:00 00:00:00 [facility] Family [place]Doroteo MD: [id number] FABIANA_Oliver hay [facility], [address], [place] [address] , Ph. 2020-05-17 2020-05-17 Outpatient Daniel_T VFP VFP [id number] [address] [place] [address] 01:04:00 01:04:00 [id number] Family Practic e 2020-05-14 2020-05-14 Outpatient Daniel_T VFP VFP [id number] [address] [place] [address] 12:02:00 12:02:00 [id number] Family Practic e 2020-03-04 2020-03-04 Orders Doctor KHANH [id number] 00:00:00 00:00:00 Only Unassigned, MARSHALL [id number] [place] [facility] 4.2.7.2.686 [id number] 2020-02-25 2020-02-25 [facility] [id number] 09:18:37 23:59:00 Encounter [facility] [id number] Surgical 4.2.7.2.686 Specialti [id number] es 809 [place] 2020-02-25 2020-02-25 [facility] [id number] 09:02:34 09:17:34 Visit [facility] [id number] Surgical 4.2.7.2.686 Specialti [id number] es 198 [place] 2020-02-21 2020-02-21 Telephone [facility] [id number] 00:00:00 00:00:00 [facility] [id number] Surgical 4.2.7.2.686 Specialti [id number] es 198 [place] 2016-11-24 2016-11-24 Emergency [facility] [id number] [facility] 01:46:00 03:02:00 [facility] 00 l [facility] Results Test Description Test Time Test Comments Results Result Comments Source POCT GLUCOSE (AUTOMATED) 2021-07-06 09:32:34 Test Item Value Reference Range Interpretation Comme nts POCT GLU (test code = 6901840485) 312 mg/dL 70-110 H Lab Interpretation (test code = 71245-7) Abnormal [facility] [id number] 07:02:35 Test Item Value Reference Interpretation Comments Range TROPONIN I (test 0.004 ng/mL See_Comment [Automated code = 6473609649) message] The system which generated this result transmitted reference range : <=0.034. The reference range was not used to interpret this result as normal/abnormal . PARKER (test code = Reference (Normal) PARKER) Range (defined by the 99th percentile reference limit): <= 0.034 ng/mL Note: Cardiac troponin begins to rise 3-4 hours after the onset of ischemia. Repeat in 4-6 hours if the sample was drawn within 3-4 hours of the onset of the symptom and found normal. Diagnosis of myocardial injury is made with acute changes in cTn concentrations with at least one serial sample above the 99th percentile upper reference limit (URL), taken together with the patient's clinical presentation. Biotin has been reported to cause a negative bias, interpret results relative to patient's use of biotin. Lab Interpretation Normal (test code = 01448-1) [facility]22-[facility]-15 06:49:16 Test Item Value Reference Range Interpretation Comments LIPASE (test code = 9449120046) 23 U/L 0-220 Lab Interpretation (test code = Normal 50132-2) [facility] WITH [id number] 03:49:28 Test Item Value Reference Range Interpretation Comments WBC (test code = See_Comment [Automated 3758-2) message] The sy stem which generated this result transmitted reference range : 4.20 - 10.70 10*3/?L. The reference range was not used to interpret this result as normal/abnormal . RBC (test code = See_Comment [Automated 163-8) message] The sy stem which generated this result transmitted reference range : 4.26 - 5.52 10*6/?L. The reference range was not used to interpret this result as normal/abnormal . HGB (test code = 13.8 g/dL 12.2-16.4 718-7) HCT (test code = 37.4 % 38.4-49.3 L 4544-3) MCV (test code = 82.2 fL 81.7-95.6 787-2) MCH (test code = 30.3 pg 26.1-32.7 785-6) MCHC (test code = 36.9 g/dL 31.2-35.0 H 786-4) RDW-SD (test code = 36.2 fL 38.5-51.6 L 25076-3) RDW-CV (test code = 12.1 % 12.1-15.4 788-0) PLT (test code = See_Comment [Automated 287-3) message] The sy stem which generated this result transmitted reference range : 150 - 328 10*3/ ?L. The reference r aixa was not used to interpret this result as normal/abnormal . MPV (test code = 9.9 fL 9.8-13.0 36861-5) IPF % (test code = 3.1 % 1.2-10.7 Platelet count [id number]) measured by fluorescence method. NRBC/100 WBC (test See_Comment [Automat ed code = 3161513251) message] The system which generated this result transmitted reference range : 0.0 - 10.0 /100 WBCs. The refer ence range was not u sed to interpret th is result as normal/abnormal . NRBC x10^3 (test code <0.01 See_Comment [Auto mated = 8160602422) message] The s ystem which generated this result transmitted reference range : 10*3/?L. The reference range was not used to interpret this result as normal/abnormal . GRAN MAT (NEUT) % 77.8 % (test code = 770-8) IMM GRAN % (test code 0.30 % = 1902629038) LYMPH % (test code = 17.0 % 736-9) MONO % (test code = 4.2 % 5905-5) EOS % (test code = 0.3 % 713-8) BASO % (test code = 0.4 % 706-2) GRAN MAT x10^3(ANC) 5.87 10*3/uL 1.99-6.95 (test code = 2297379866) IMM GRAN x10^3 (test <0.03 0.00-0.06 code = 6415915664) LYMPH x10^3 (test code 1.28 10*3/uL 1.09-3.23 = 731-0) MONO x10^3 (test code 0.32 10*3/uL 0.36-1.02 L = 742-7) EOS x10^3 (test code = <0.03 0.06-0.53 L 711-2) BASO x10^3 (test code 0.03 10*3/uL 0.01-0.09 = 704-7) Lab Interpretation Abnormal (test code = 99780-9) [facility]. METABOLIC PANEL (90940)2021-07-06 03:36:26 Test Item Value Reference Range Interpretation Comments NA (test code = 135 mmol/L 135-145 7618103701) K (test code = 4.2 mmol/L 3.5-5.0 4877103730) CL (test code = 100 mmol/L 98-108 1023048407) CO2 TOTAL (test code = 25 mmol/L 23-31 9205009996) AGAP (test code = 2-16 0279544442) BUN (test code = 31 mg/dL 7-23 H 2569519834) GLUCOSE (test code = 337 mg/dL 70-110 H 8815593916) CREATININE (test code = 1.40 mg/dL 0.60-1.25 H 2579822794) TOTAL BILI (test code = 1.0 mg/dL 0.1-1.8 4086976096) CALCIUM (test code = 9.2 mg/dL 8.6-10.6 2462914081) T PROTEIN (test code = 7.7 g/dL 6.3-8.2 9306006306) ALBUMIN (test code = 4.8 g/dL 3.5-5.0 2227152597) ALK PHOS (test code = 79 U/L 34-122 8176939453) ALTv (test code = 26 U/L 5-50 1742-6) AST(SGOT) (test code = 25 U/L 13-40 7030861697) eGFR (test code = mL/min/1.73m2 6051407005) PARKER (test code = PARKER) Association of Glomerular Filtration Rate (GFR) and Staging of Kidney Disease* + --+ --+ ------+| GFR (mL/min/1.73 m2) ?| With Kidney Damage ?| ?Without Kidney Damage+ --------+ --------+ +| ?>90 ?| ?Stage one ?| ? Normal ?+ ---+ ---+ -------+| ?60-89 ?| ?Stage two ?| ? Decreased GFR ? + --+ --+ ------+| ?30-59 ?| ?Stage three ?| ? Stage three ? + --+ --+ ------+| ?15-29 ?| ?Stage four ? | ? Stage four ?+ ---+ ---+ -------+| ?<15 (or dialysis) ? ?| ?Stage five ? | ? Stage five ?+ ---+ ---+ -------+ *Each stage assumes the associated GFR level has been in effect for at least three months. ?Stages 1 to 5, with or without kidney disease, indicate chronic kidney disease. Notes: Determination of stages one and two (with eGFR >59mL/min/1.73 m2) requires estimation of kidney damage for at least three months as defined by structural or functional abnormalities of the kidney, manifested by either:Pathological abnormalities or Markers of kidney damage (including abnormalities in the composition of the blood or urine or abnormalities in imaging tests). Lab Interpretation Abnormal (test code = 05400-7) [facility] [id number] 02:01:00 Test Item Value Reference Range Interpretation Comments CULTURE (BEAKER) (test No growth in 5 days code = 1095) BLOOD [id number] 02:01:00 Test Item Value Reference Range Interpretation Comments CULTURE (BEAKER) (test No growth in 5 days code = 1095) MRSA [id number] 09:59:00 Test Item Value Reference Range Interpretation Comments CULTURE (BEAKER) (test code No MRSA isolated = 1095) TISSUE [id number] 15:35:00Surgical Pathology Report Case: [id number] Authorizing Provider: Won Randall MD Collected: 10/17/2018 0823 Ordering Location: [address] Received: 10/17/2018 1401 Service Pathologist: Natividad Shrestha MD Specimens: A) - Duodenum, random bx B) -Biopsy, Gastric, body and antrum A. DUODENUM , RANDOM BIOPSY- NO DIAGNOSTIC ALTERATIONB. STOMACH, BODY AND ANTRUM, BIOPSY- CHRONIC INACTIVE GASTRITIS, MILD- NO INTESTINAL METAPLASIA, DYSPLASIA OR INVASIVE CARCINOMA IDENTIIFIED- NO HELICOBACTER PYLORI LIKE ORGANISMS IDENTIFIED ON WARTHIN STARRY STAIN Signing Pathologist Direct Phone Line: [phone] signed by Natividad Shrestha MD on 10/18/2018 at 3:35 [id number] x 2, [id number] and postop diagnosis: intractable vomiting, presence of [...] evaluated Immunohistochemistry technical testing was performed at [facility], Pathology Laboratory where it was [...] to perform high complexity clinical laboratory testing.POCT-GLUCOSE [id number] 10:09:00 Test Item Value Reference Range Interpretation Comments POC-GLUCOSE METER 118 mg/dL 70-110 H TESTED AT [facility] 6720 ([facility]) (test code = CAROLA Roberson [facility] 1538) [address] [id number] 06:56:00 Test Item Value Reference Range Interpretation Comments MAGNESIUM (BEAKER) (test code = 2.0 mg/dL 1.6-2.6 627) BASIC METABOLIC [id number] 06:40:00 Test Item Value Reference Range Interpretation [...] 358) GLUCOSE RANDOM 249 mg/dL 70-105 H ([facility]) (test code = 652) CALCIUM ([facility]) 8.5 mg/dL 8.4-10.2 (test code = 697) EGFR ([facility]) (test 94 mL/min/1.73 ESTIMA GUNNAR GFR IS code = 1092) sq m NOT ACCURATE CREATININE CLEARANCE IN PREDICTING GLOMERULAR FILTRATION RATE . ESTIMATED GFR I S NOT APPLICABLE FOR DIALYSIS PATIEN TS. POCT-GLUCOSE [id number] 20:40:00 Test Item Value Reference Range Interpretation Comments POC-GLUCOSE METER 172 mg/dL 70-110 H TESTED AT [place] [address] ([facility]) (test code = CAROLA Roberson [facility] 1538) [address] POCT-GLUCOSE [id number] 18:25:00 Test Item Value Reference Range Interpretation Comments POC-GLUCOSE METER 200 mg/dL 70-110 H TESTED AT [place] [address] ([facility]) (test code = CAROLA Roberson [facility] 1538) [address] POCT-GLUCOSE [id number] 15:26:00 Test Item Value Reference Range Interpretation Comments POC-GLUCOSE METER 232 mg/dL 70-110 H TESTED AT [place] [address] ([facility]) (test code = CAROLA Roberson [place] 1538) [address] POCT-GLUCOSE [id number] 13:00:00 Test Item Value Reference Range Interpretation Comments POC-GLUCOSE METER 228 mg/dL 70-110 H TESTED AT [place] [address] ([facility]) (test code = CAROLA Roberson [place] 1538) [address] POCT-GLUCOSE [id number] 10:43:00 Test Item Value Reference Range Interpretation Comments POC-GLUCOSE METER 207 mg/dL 70-110 H TESTED AT [place] [address] ([facility]) (test code = CAROLA Roberson [place] 1538) [address] POCT-GLUCOSE [id number] 09:16:00 Test Item Value Reference Range Interpretation Comments POC-GLUCOSE METER 269 mg/dL 70-110 H TESTED AT [place] [address] ([facility]) (test code = CAROLA Roberson [place] 1538) [address] POCT-GLUCOSE [id number] 07:26:00 Test Item Value Reference Range Interpretation Comments POC-GLUCOSE METER 239 mg/dL 70-110 H TESTED AT [facility] 6720 (BEAKER) (test code = [place] 153) [address] BASIC METABOLIC [id number] 06:42:00 Test Item Value Reference Range Interpretation [...] S NOT APPLICABLE FOR DIALYSIS PATIEN TS. [id number] 06:42:00 Test Item Value Reference Range Interpretation Comments PHOSPHORUS (BEAKER) (test code = 2.0 mg/dL 2.3-4.7 L 604) [id number] 06:42:00 Test Item Value Reference Range Interpretation Comments MAGNESIUM (BEAKER) (test code = 2.3 mg/dL 1.6-2.6 627) CBC W/PLT COUNT & AUTO [id number] 06:34:00 Test Item Value Reference Range Interpretation [...] PERCENT (BEAKER) (test code = 2801) POCT-GLUCOSE [id number] 22:23:00 Test Item Value Reference Range Interpretation Comments POC-GLUCOSE METER 237 mg/dL 70-110 H TESTED AT [facility] 6720 (BEAKER) (test code = CAROLA Roberson [place] 1538) [address] POCT-GLUCOSE [id number] 20:39:00 Test Item Value Reference Range Interpretation Comments POC-GLUCOSE METER 298 mg/dL 70-110 H TESTED AT [place] [address] (BEAKER) (test code = CAROLA Roberson [facility] 1538) 138[address] POCT-GLUCOSE [id number] 17:49:00 Test Item Value Reference Range Interpretation Comments POC-GLUCOSE METER 255 mg/dL 70-110 H TESTED AT [place] [address] (BEAKER) (test code = CAROLA Roberson [facility] 1538) [address] POCT-GLUCOSE [id number] 13:35:00 Test Item Value Reference Range Interpretation Comments POC-GLUCOSE METER 190 mg/dL 70-110 H TESTED AT [place] [address] (BEAKER) (test code = CAROLA Roberson [facility] 1538) 7[address] POCT-GLUCOSE [id number] 12:31:00 Test Item Value Reference Range Interpretation Comments POC-GLUCOSE METER 204 mg/dL 70-110 H TESTED AT [place] [address] ([facility] (test code = CAROLA Roberson [facility] 1538) 67[address] POCT-GLUCOSE [id number] 11:38:00 Test Item Value Reference Range Interpretation Comments POC-GLUCOSE METER 165 mg/dL 70-110 H TESTED AT [place] [address] (BEAKER) (test code = CAROLA Roberson [facility] 1538) [address] POCT-GLUCOSE [id number] 10:35:00 Test Item Value Reference Range Interpretation Comments POC-GLUCOSE METER 231 mg/dL 70-110 H TESTED AT [place] [address] (BEAKER) (test code = CAROLA Roberson [facility] 1538) [address] BASIC METABOLIC [id number] 09:52:00 Test Item Value Reference Range Interpretation [...] S NOT APPLICABLE FOR DIALYSIS PATIEN TS. [id number] 09:52:00 Test Item Value Reference Range Interpretation Comments PHOSPHORUS (BEAKER) (test code = 2.0 mg/dL 2.3-4.7 L 604) [id number] 09:52:00 Test Item Value Reference Range Interpretation Comments MAGNESIUM (BEAKER) (test code = 2.2 mg/dL 1.6-2.6 627) POCT-GLUCOSE [id number] 09:28:00 Test Item Value Reference Range Interpretation Comments POC-GLUCOSE METER 213 mg/dL 70-110 H TESTED AT [place] [address] ([facility]) (test code = CAROLA Roberson [facility] 1538) [address] RAD, ABDOMEN/KUB, 1 VIEW [id number] 09:12:00Reason for exam:->recurrent vomitingShould this be performed [...] MDReport Verified Date/Time: 10/16/2018 09:12:50 Reading Location: [facility] Radiology Reading Room POCT-GLUCOSE [id number] 08:41:00 Test Item Value Reference Range Interpretation Comments POC-GLUCOSE METER 206 mg/dL 70-110 H TESTED AT [place] [address] ([facility]) (test code = [place] 1538) [address] POCT-GLUCOSE [id number] 07:46:00 Test Item Value Reference Range Interpretation Comments POC-GLUCOSE METER 203 mg/dL 70-110 H TESTED AT [facility] 6720 (BEAKER) (test code = [place] 1538) [address] [id number] 07:14:00 Test Item Value Reference Range Interpretation Comments MAGNESIUM (BEAKER) 2.2 mg/dL 1.6-2.6 Specimen slightly (test code = 627) hemolyzed [id number] 07:14:00 Test Item Value Reference Range Interpretation Comments PHOSPHORUS (BEAKER) 2.4 mg/dL 2.3-4.7 Specimen slightly (test code = 604) hemolyzed BASIC METABOLIC [id number] 07:14:00 Test Item Value Reference Range Interpretation [...] APPLICABLE FOR DIALYSIS PATIEN TS. LACTIC ACID, [id number] 06:58:00 Test Item Value Reference Range Interpretation Comments LACTATE BLOOD ARTERIAL (2) 1.0 mmol/L 0.5-2.2 (BEAKER) (test code = 2874) CBC W/PLT COUNT & AUTO [id number] 06:47:00 Test Item Value Reference Range Interpretation [...] (BEAKER) (test code = 2801) HEMOGLOBIN AND [id number] 06:42:00 Test Item Value Reference Range Interpretation Comments HEMOGLOBIN (BEAKER) (test code = 11.2 GM/DL 13.7-17.5 L 410) HEMATOCRIT ([facility]) (test code = 33.1 % 40.1-51.0 L 411) POCT-GLUCOSE [id number] 06:22:00 Test Item Value Reference Range Interpretation Comments POC-GLUCOSE METER 193 mg/dL 70-110 H TESTED AT [place] [address] ([facility]) (test code = CAROLA Roberson [place] 1538) [address] POCT-GLUCOSE [id number] 05:31:00 Test Item Value Reference Range Interpretation Comments POC-GLUCOSE METER 185 mg/dL 70-110 H TESTED AT [place] [address] ([facility]) (test code = CAROLA Roberson [place] 1538) [address] POCT-GLUCOSE [id number] 04:02:00 Test Item Value Reference Range Interpretation Comments POC-GLUCOSE METER 191 mg/dL 70-110 H TESTED AT [place] [address] ([facility]) (test code = CAROLA Roberson [place] 1538) [address] POCT-GLUCOSE [id number] 03:08:00 Test Item Value Reference Range Interpretation Comments POC-GLUCOSE METER 170 mg/dL 70-110 H TESTED AT [place] [address] ([facility]) (test code = CAROLA Roberson [place] 1538) [address] POCT-GLUCOSE [id number] 02:24:00 Test Item Value Reference Range Interpretation Comments POC-GLUCOSE METER 155 mg/dL 70-110 H TESTED AT [place] [address] ([facility]) (test code = CAROLA Roberson [place] 1538) [address] POCT-GLUCOSE [id number] 01:43:00 Test Item Value Reference Range Interpretation Comments POC-GLUCOSE METER 158 mg/dL 70-110 H TESTED AT [place] [address] ([facility]) (test code = CAROLA Roberson [place] 1538) [address] BASIC METABOLIC [id number] 00:59:00 Test Item Value Reference Range Interpretation [...] S NOT APPLICABLE FOR DIALYSIS PATIEN TS. [id number] 00:58:00 Test Item Value Reference Range Interpretation Comments MAGNESIUM (BEAKER) 2.4 mg/dL 1.6-2.6 Specimen slightly (test code = 627) hemolyzed [id number] 00:58:00 Test Item Value Reference Range Interpretation Comments PHOSPHORUS (BEAKER) 1.6 mg/dL 2.3-4.7 L Specimen slightly (test code = 604) hemolyzed HEMOGLOBIN AND [id number] 00:31:00 Test Item Value Reference Range Interpretation Comments HEMOGLOBIN (BEAKER) (test code = 11.9 GM/DL 13.7-17.5 L 410) HEMATOCRIT (BEAKER) (test code = 34.5 % 40.1-51.0 L 411) POCT-GLUCOSE [id number] 00:30:00 Test Item Value Reference Range Interpretation Comments POC-GLUCOSE METER 188 mg/dL 70-110 H TESTED AT [place] [address] ([facility]) (test code = CAROLA Roberosn [facility] 1538) [address] POCT-GLUCOSE [id number] 23:07:00 Test Item Value Reference Range Interpretation Comments POC-GLUCOSE METER 191 mg/dL 70-110 H TESTED AT [place] [address] ([facility]) (test code = CAROLA Roberson [facility] 1538) [address] POCT-GLUCOSE [id number] 22:03:00 Test Item Value Reference Range Interpretation Comments POC-GLUCOSE METER 205 mg/dL 70-110 H TESTED AT [place] [address] ([facility]) (test code = CAROLA Roberson [facility] 1538) [address] BASIC METABOLIC [id number] 21:06:00 Test Item Value Reference Range Interpretation [...] APPLICABLE FOR DIALYSIS PATIEN TS. VANCOMYCIN LEVEL, [id number] 21:04:00 Test Item Value Reference Range Interpretation Comments VANCOMYCIN TROUGH ([facility]) (test 5.8 ug/mL 10.0-20.0 L code = 522) If level is >20, hold scheduled vancomycin dose and contact PharmD/MD. Thank youPOCT-GLUCOSE [id number] 21:00:00 Test Item Value Reference Range Interpretation Comments POC-GLUCOSE METER 202 mg/dL 70-110 H TESTED AT [place] [address] ([facility]) (test code = [place] 1538) [address] POCT-GLUCOSE [id number] 20:08:00 Test Item Value Reference Range Interpretation Comments POC-GLUCOSE METER 180 mg/dL 70-110 H TESTED AT [place] [address] ([facility]) (test code = [place] 1538) [address] POCT-GLUCOSE [id number] 18:39:00 Test Item Value Reference Range Interpretation Comments POC-GLUCOSE METER 175 mg/dL 70-110 H TESTED AT [place] [address] ([facility]) (test code = [place] 1538) [address] POCT-GLUCOSE [id number] 17:22:00 Test Item Value Reference Range Interpretation Comments POC-GLUCOSE METER 209 mg/dL 70-110 H TESTED AT [facility] 6720 (BEAKER) (test code = CAROLA Roberson [place] 1538) [address] URINALYSIS W/ REFLEX URINE [id number] 16:58:00 Test Item Value Reference Range Interpretation [...] SOURCE(BEAKER) (test code = 2795) HEMOGLOBIN AND [id number] 16:36:00 Test Item Value Reference Range Interpretation Comments HEMOGLOBIN (BEAKER) (test code = 13.0 GM/DL 13.7-17.5 L 410) HEMATOCRIT (BEAKER) (test code = 37.3 % 40.1-51.0 L 411) POCT-GLUCOSE [id number] 16:20:00 Test Item Value Reference Range Interpretation Comments POC-GLUCOSE METER 217 mg/dL 70-110 H TESTED AT [facility] 6720 (BEAKER) (test code = ACROLA Roberson [place] 1538) [address] BASIC METABOLIC [id number] 16:19:00 Test Item Value Reference Range Interpretation [...] GFR I S NOT APPLICABLE FOR DIALYSIS PATIMICHELLE TS. [id number] 16:15:00 Test Item Value Reference Range Interpretation Comments PHOSPHORUS (BEAKER) (test code = 3.4 mg/dL 2.3-4.7 604) [id number] 16:15:00 Test Item Value Reference Range Interpretation Comments MAGNESIUM (BEAKER) (test code = 2.1 mg/dL 1.6-2.6 627) POCT-GLUCOSE [id number] 15:13:00 Test Item Value Reference Range Interpretation Comments POC-GLUCOSE METER 205 mg/dL 70-110 H TESTED AT [place] [address] ([facility]) (test code = CAROLA [place] 1538) [address] POCT-GLUCOSE [id number] 14:17:00 Test Item Value Reference Range Interpretation Comments POC-GLUCOSE METER 154 mg/dL 70-110 H TESTED AT [place] [address] ([facility]) (test code = CAROLA [place] 1538) [address] POCT-GLUCOSE [id number] 13:34:00 Test Item Value Reference Range Interpretation Comments POC-GLUCOSE METER 144 mg/dL 70-110 H TESTED AT [place] [address] ([facility]) (test code = CAROLA [place] 1538) 760[address] BASIC METABOLIC [id number] 12:52:00 Test Item Value Reference Range Interpretation [...] S NOT APPLICABLE FOR DIALYSIS PATIEN TS. [id number] 12:45:00 Test Item Value Reference Range Interpretation Comments PHOSPHORUS (BEAKER) (test code = 1.8 mg/dL 2.3-4.7 L 604) [id number] 12:45:00 Test Item Value Reference Range Interpretation Comments MAGNESIUM (BEAKER) (test code = 2.4 mg/dL 1.6-2.6 627) BLOOD GAS, [id number] 12:26:00 Test Item Value Reference Range Interpretation [...] code = 1819) 21.0 % HEMOGLOBIN AND [id number] 12:24:00 Test Item Value Reference Range Interpretation Comments HEMOGLOBIN (BEAKER) (test code = 11.9 GM/DL 13.7-17.5 L 410) HEMATOCRIT (BEAKER) (test code = 34.2 % 40.1-51.0 L 411) POCT-GLUCOSE [id number] 12:23:00 Test Item Value Reference Range Interpretation Comments POC-GLUCOSE METER 170 mg/dL 70-110 H TESTED AT [place] [address] ([facility]) (test code = [facility] 1538) [address] POCT-GLUCOSE [id number] 10:54:00 Test Item Value Reference Range Interpretation Comments POC-GLUCOSE METER 182 mg/dL 70-110 H TESTED AT [place] [address] ([facility]) (test code = [facility] 1538) [address] BASIC METABOLIC [id number] 09:55:00 Test Item Value Reference Range Interpretation [...] NOT APPLICABLE FOR DIALYSIS PATIEN TS. POCT-GLUCOSE [id number] 09:44:00 Test Item Value Reference Range Interpretation Comments POC-GLUCOSE METER 217 mg/dL 70-110 H TESTED AT [place] [address] ([facility]) (test code = [facility] 1538) [address] BLOOD GAS, [id number] 08:28:00 Test Item Value Reference Range Interpretation [...] (test code = 1819) 21.0 % POCT-GLUCOSE [id number] 08:24:00 Test Item Value Reference Range Interpretation Comments POC-GLUCOSE METER 207 mg/dL 70-110 H TESTED AT [place] [address] (BEAKER) (test code = [facility] 1538) [address] POCT-GLUCOSE [id number] 06:39:00 Test Item Value Reference Range Interpretation Comments POC-GLUCOSE METER 203 mg/dL 70-110 H TESTED AT [place] [address] ([facility]) (test code = [facility] 1538) [address] BASIC METABOLIC [id number] 06:37:00 Test Item Value Reference Range Interpretation [...] NOT APPLICABLE FOR DIALYSIS PATIEN TS. POCT-GLUCOSE [id number] 05:26:00 Test Item Value Reference Range Interpretation Comments POC-GLUCOSE METER 253 mg/dL 70-110 H TESTED AT [facility] 6720 (BEAKER) (test code = [place] 1538) [address] BASIC METABOLIC [id number] 05:07:00 Test Item Value Reference Range Interpretation [...] S NOT APPLICABLE FOR DIALYSIS PATIEN TS. [id number] 05:07:00 Test Item Value Reference Range Interpretation Comments MAGNESIUM (BEAKER) (test code = 2.0 mg/dL 1.6-2.6 627) [id number] 05:07:00 Test Item Value Reference Range Interpretation Comments PHOSPHORUS (BEAKER) (test code = 2.8 mg/dL 2.3-4.7 604) BLOOD GAS, [id number] 05:01:00 Test Item Value Reference Range Interpretation [...] code = 1819) 21.0 % LACTIC ACID, [id number] 04:58:00 Test Item Value Reference Range Interpretation Comments LACTATE BLOOD ARTERIAL (2) 0.6 mmol/L 0.5-2.2 (BEAKER) (test code = 2874) CBC W/PLT COUNT & AUTO [id number] 04:57:00 Test Item Value Reference Range Interpretation [...] PERCENT (BEAKER) (test code = 2801) POCT-GLUCOSE [id number] 04:20:00 Test Item Value Reference Range Interpretation Comments POC-GLUCOSE METER 220 mg/dL 70-110 H TESTED AT [place] [address] ([facility]) (test code = [facility] 1538) 219[address] POCT-GLUCOSE [id number] 03:44:00 Test Item Value Reference Range Interpretation Comments POC-GLUCOSE METER 243 mg/dL 70-110 H TESTED AT [place] [address] ([facility]) (test code = [facility] 1538) 61383 POCT-GLUCOSE [id number] 03:06:00 Test Item Value Reference Range Interpretation Comments POC-GLUCOSE METER 196 mg/dL 70-110 H TESTED AT [place] [address] ([facility]) (test code = [facility] 1538) 6[address] TROPONIN [id number] 03:00:00 Test Item Value Reference Range Interpretation Comments TROPONIN I ([facility]) (test code = 0.02 ng/mL [...] acute neurological disease, and persistent tachyarrhythmia.BASIC METABOLIC [id number] 02:57:00 Test Item Value Reference Range Interpretation [...] NOT APPLICABLE FOR DIALYSIS PATIEN TS. POCT-GLUCOSE [id number] 01:21:00 Test Item Value Reference Range Interpretation Comments POC-GLUCOSE METER 195 mg/dL 70-110 H TESTED AT [facility] 6720 ([facility]) (test code = [place]OSYOSEF [place] 1538) [address] TROPONIN [id number] 00:47:00 Test Item Value Reference Range Interpretation [...] failure, acidosis, acute neurological disease, and persistent tachyarrhythmia.[id number] 00:44:00 Test Item Value Reference Range Interpretation Comments PHOSPHORUS (BEAKER) (test code = 1.4 mg/dL 2.3-4.7 LL 604) BLOOD GAS, [id number] 00:41:00 Test Item Value Reference Range Interpretation [...] code = 1819) 21.0 % BASIC METABOLIC [id number] 00:40:00 Test Item Value Reference Range Interpretation [...] S NOT APPLICABLE FOR DIALYSIS PATIEN TS. [id number] 00:40:00 Test Item Value Reference Range Interpretation Comments MAGNESIUM (BEAKER) (test code = 2.1 mg/dL 1.6-2.6 627) HEMOGLOBIN AND [id number] 00:21:00 Test Item Value Reference Range Interpretation Comments HEMOGLOBIN (MELITON) (test code = 12.3 GM/DL 13.7-17.5 L 410) HEMATOCRIT ([facility]EL[facility]ON) (test code = 34.9 % 40.1-51.0 L 411) POCT-GLUCOSE [id number] 00:09:00 Test Item Value Reference Range Interpretation Comments POC-GLUCOSE METER 234 mg/dL 70-110 H TESTED AT [facility] 67 ([facility]) (test code = CAROLA Roberson [facility] 1538) [address] STREP PNEUMONIAE [id number] 00:07:00 Test Item Value Reference Range Interpretation Comments STREP PNEUMONIAE Presumptive negative Presumptive negative ANTIGEN ([facility]) for pneumococcal for pneumococcal (test code = 1615) pneumonia - see pneumonia - see comment commen Presumptive negative for pneumococcal pneumonia, suggesting no current or recent pneumococcal infection. Infection due to S. pneumoniae cannot be ruled out since the antigen present in the sample may be below the detection limit of the test. LEGIONELLA ANTIGEN, [id number] 00:07:00 Test Item Value Reference Range Interpretation Comments L. PNEUMOPHILA Negative - see Negative fo r L. SEROGP 1 UR AG comment pneumophila (MELITON) (test code serogrou p 1 antigen, = 1156) suggesting no r ecent or current infe ction with this serog roup. Legionellosis c annot be ruled out si nce other serogroup s and species may cau se disease. POCT-GLUCOSE [id number] 23:15:00 Test Item Value Reference Range Interpretation Comments POC-GLUCOSE METER 247 mg/dL 70-110 H TESTED AT [facility] 6720 [facility] (test code = CAROLA Roberson [facility] 1538) [address] BASIC METABOLIC [id number] 23:09:00 Test Item Value Reference Range Interpretation [...] APPLICABLE FOR DIALYSIS PATIEN TS. BLOOD GAS, [id number] 22:52:00 Test Item Value Reference Range Interpretation [...] (test code = 1819) 21.0 % POCT-GLUCOSE [id number] 22:25:00 Test Item Value Reference Range Interpretation Comments POC-GLUCOSE METER 270 mg/dL 70-110 H TESTED AT [facility] 6720 (BEAKER) (test code = [facility]YOSEF [place] 1538) [id number] POCT-GLUCOSE [id number] 21:28:00 Test Item Value Reference Range Interpretation Comments POC-GLUCOSE METER 312 mg/dL 70-110 H TESTED AT [facility] 6720 (BEAKER) (test code = [facility] [place] 1538) [address] LACTIC ACID, [id number] 20:58:00 Test Item Value Reference Range Interpretation Comments LACTATE BLOOD ARTERIAL (2) 1.7 mmol/L 0.5-2.2 (BEAKER) (test code = 2874) BASIC METABOLIC [id number] 20:51:00 Test Item Value Reference Range Interpretation [...] NOT APPLICABLE FOR DIALYSIS PATIEN TS. POCT-GLUCOSE [id number] 20:37:00 Test Item Value Reference Range Interpretation Comments POC-GLUCOSE METER 334 mg/dL 70-110 H TESTED AT [facility] 6720 ([facility] (test code = [place] 1538) [address] RAD, CHEST, 1 VIEW, NON [id number] 20:13:00Post-intubationReason for exam:- >r/o pnaShould this be performed at the bedside?->YesFINAL REPORT History: "Rule out pneumonia". Comparison: None. Findings: A sin gle view of the chest is submitted. The cardiomediastinal contours are unremarkable. There is no focal consolidation, pneumothorax, large pleural effusion or evidence of overt pulmonary edema. Thereis no acute bony abnormality. Impression: No acute abnormality. Signed: Jacques Vora Verified Date/Time: 10/14/2018 20:13:51 Reading Location: [address] Reading Room POCT-GLUCOSE [id number] 19:39:00 Test Item Value Reference Range Interpretation Comments POC-GLUCOSE METER 432 mg/dL 70-110 HH TESTED AT [facility] 6720 ([facility]) (test code = [place] 1538) [id number] HEMOGLOBIN [id number] 19:16:00 Test Item Value Reference Range Interpretation Comments HEMOGLOBIN A1C (BEAKER) (test code = 10.2 % 4.3-6.1 H 368) [id number] 18:52:00 Test Item Value Reference Range Interpretation Comments PROCALCITONIN (BEAKER) (test code 5.14 ng/mL <0.05 H = 3036) SEPSIS RISK (ng/mL)Low: 0.05-0.50Intermediate: 0.51-2.00High: >=2.01CBC W/PLT COUNT & AUTO [id number] 18:37:00 Test Item Value Reference Range Interpretation Comments WHITE BLOOD CELL COUNT (AKER) 24.9 K/ L 3.5-10.5 H (test code = 775) RED BLOOD CELL COUNT (BEAKER) 4.23 M/ L 4.63-6.08 L (test code = 761) HEMOGLOBIN (BEAKER) (test code = 13.0 GM/DL 13.7-17.5 L 410) HEMATOCRIT (BEAKER) (test code = 38.1 % 40.1-51.0 L 411) MEAN CORPUSCULAR VOLUME (AKER) 90.1 fL 79.0-92.2 (test code = 753) [...] (BEAKER) (test code = 2801) BASIC METABOLIC [id number] 18:29:00 Test Item Value Reference Range Interpretation [...] APPLICABLE FOR DIALYSIS PATIEN TS. HEPATIC FUNCTION [id number] 18:29:00 Test Item Value Reference Range Interpretation [...] = 23 U/L 6-55 347) LACTIC ACID, [id number] 18:24:00 Test Item Value Reference Range Interpretation Comments LACTATE BLOOD ARTERIAL (2) 3.0 mmol/L 0.5-2.2 H (BEAKER) (test code = 2874) BLOOD GAS, [id number] 17:52:00 Test Item Value Reference Range Interpretation [...] 21.0 % CBC W/PLT COUNT & AUTO [id number] 17:50:00 Test Item Value Reference Range Interpretation [...] 3438) Received comment: User comments: Slide comments:POCT-GLUCOSE [id number] 17:49:00 Test Item Value Reference Range Interpretation Comments POC-GLUCOSE METER > mg/dL 70-110 HH OUTSIDE ME ASURING (BEAKER) (test code RANGETES GUNNAR AT [facility] 6720 = 1538) [facility] [address] KETONE, [id number] 17:13:00 Test Item Value Reference Range Interpretation Comments KETONES, BLOOD (BEAKER) (test code 5.4 mmol/L <0.4 H = 1103) TSH/FREE T4 IF [id number] 17:10:00 Test Item Value Reference Range Interpretation Comments THYROID STIMULATING HORMONE 0.64 uIU/mL 0.35-4.94 (BEAKER) (test code = 772) BASIC METABOLIC [id number] 16:57:00 Test Item Value Reference Range Interpretation [...] NOT APPLICABLE FOR DIALYSIS PATIEN TS. TROPONIN [id number] 16:56:00 Test Item Value Reference Range Interpretation [...] failure, acidosis, acute neurological disease, and persistent tachyarrhythmia.[id number] 16:50:00 Test Item Value Reference Range Interpretation Comments MAGNESIUM (BEAKER) 2.4 mg/dL 1.6-2.6 Specimen slightly (test code = 627) hemolyzed [id number] 16:50:00 Test Item Value Reference Range Interpretation Comments PHOSPHORUS (BEAKER) 5.6 mg/dL 2.3-4.7 H Specimen slightly (test code = 604) hemolyzed [id number] 16:50:00 Test Item Value Reference Range Interpretation Comments AMYLASE (BEAKER) (test 47 U/L 25-125 Speci men slightly code = 349) hemolyzed [id number] 16:50:00 Test Item Value Reference Range Interpretation Comments LIPASE (BEAKER) (test code = 749) 199 U/L 8-78 H PROTHROMBIN [id number] 16:47:00 Test Item Value Reference Range Interpretation [...] INR is2.5-3.5 for patients wiht mechanical heart valves.[id number] 16:47:00 Test Item Value Reference Range Interpretation Comments PARTIAL THROMBOPLASTIN TIME 23.5 seconds 22.5-36.0 (BEAKER) (test code = 760) [id number] 16:47:00 Test Item Value Reference Range Interpretation Comments FIBRINOGEN LEVEL (BEAKER) (test 284 mg/dl 225-434 code = 658) LACTIC ACID, [id number] 16:44:00 Test Item Value Reference Range Interpretation Comments LACTATE BLOOD VENOUS 4.2 mmol/L 0.5-2.2 H Specime n slightly (2) (BEAKER) (test hemolyzed code = 6292) HEMOGLOBIN AND [id number] 16:34:00 Test Item Value Reference Range Interpretation Comments HEMOGLOBIN (BEAKER) (test code = 14.5 GM/DL 13.7-17.5 410) HEMATOCRIT (BEAKER) (test code = 42.9 % 40.1-51.0 411) POTASSIUM-STAT [id number] 16:21:00 Test Item Value Reference Range Interpretation Comments POTASSIUM (BEAKER) (test code = 7.0 meq/L 3.6-5.5 HH 379) GLUCOSE-STAT [id number] 16:21:00 Test Item Value Reference Range Interpretation Comments GLUCOSE RANDOM (BEAKER) (test code 650 mg/dL 70-110 HH = 652) BLOOD GAS, [id number] 16:21:00 Test Item Value Reference Range Interpretation [...] code = 1819) 21.0 % SODIUM NA-STAT [id number] 16:15:00 Test Item Value Reference Range Interpretation Comments SODIUM (BEAKER) (test code = 381) 142 meq/L 135-148 HGB/HCT (H&H) - STAT [id number] 16:15:00 Test Item Value Reference Range Interpretation Comments HEMOGLOBIN (BEAKER) (test code = 14.8 g/dL 13.0-16.8 410) HEMATOCRIT (BEAKER) (test code = 44.0 % 40.0-50.0 411) POCT-GLUCOSE [id number] 15:42:00 Test Item Value Reference Range Interpretation Comments POC-GLUCOSE METER > mg/dL 70-110 HH OUTSIDE ME ASURING (BEAKER) (test code RANGENot ified YVONNE MD/TESTED = 1538) AT [facility] [address] [place] [address]
[2021-07-06 13:45] LABS: RBC Red Blood Cell Count 4.61 M/uL (4.33-5.43)
[2021-07-06 14:00] LABS: ALT/SGPT 30 U/L (12-78); AST/SGOT 10 U/L (15-37); Albumin 4.1 g/dL (3.4-5.0); Alkaline Phosphatase 81 U/L (45-117); BUN Blood Urea Nitrogen 26 mg/dL (7-18); Bicarbonate 22 mmol/L (21-32); Bilirubin Direct 0.1 mg/dL (0-0.2); Bilirubin Total 0.7 mg/dL (0.2-1.0); Glucose Level 221 mg/dL (74-106); Potassium 3.8 mmol/L (3.5-5.1); Protein, Total 8.1 g/dL (6.4-8.2); Sodium Level 142 mmol/L (136-145)
[2021-07-06 14:02] LABS: Troponin High Sensitivity < 3.00 pg/mL (<58.9)
--- NOTE | 2021-07-06 14:06 | RAD REPORT ---
EXAM DESCRIPTION: RAD - Chest Single View - 07/06/2021 1:58 pm CLINICAL HISTORY: CHEST PAIN Chest pain. COMPARISON: Chest Single View dated 02/08/2020; Chest Single View dated 02/07/2020; Chest Single Vie w dated 10/14/2018; Chest Single View dated 05/30/2018; CHEST SINGLE VIEW dated 09/22/2009 FINDINGS: Portable technique limits examination quality. The lungs are grossly clear. The heart is normal in size. No displaced fractures. IMPRESSION: No acute intrathoracic process suspected.
[2021-07-06] MEDS ORDERED: Ringers Lactate 1,000 ML IV ONE (14:07)
[2021-07-06] MEDS ORDERED: DIPHENHYDRAMINE 50 MG/ML VIAL ONE (14:27)
[2021-07-06] MEDS ORDERED: METOCLOPRAMIDE 10 MG/2mL INJ ONE (14:27)
[2021-07-06] MEDS ORDERED: NA CHLORIDE 0.9% 100 ML IV ONE (14:27)
[2021-07-06] MEDS ORDERED: ONDANSETRON 4 MG/2 ML VIAL ONE (14:27)
[2021-07-06 15:52] LABS: Phosphorus 2.4 mg/dL (2.5-4.9)
--- NOTE | 2021-07-06 15:56 | EDPHYS ---
Physician Documentation [facility] Name: Enio Bradley Age: 31 yrs Sex: Male : 1990 Arrival Date: 07/06/2021 Time: 12:51 Bed 7 Private MD: ED Physician Arturo Tom HPI: 07/06 13:37 This 31 yrs old Male presents to ER via Ambulatory with complaints of Nausea/Vomiting. ms3 13:37 The patient presents to the emergency department with nausea, vomiting. Onset: The ms3 symptoms/episode began/occurred 24 hour(s) ago. Possible causes: unknown. The symptoms are aggravated by nothing. The symptoms are alleviated by nothing. Associated signs and symptoms: Pertinent negatives: fever. 31-year-old male with past medical history of diabetes type 1 presents for nausea, vomiting for 24 hours. Patient was seen at [facility] approximately 4 hours prior to arrival and was discharged with gastroenterology follow-up. Patient states he has 5/10 aching abdominal pain. Patient denies alleviating or inciting factors. Patient denies fevers, chills, diarrhea. Historical: - Allergies: 13:10 No Known Allergies; ab2 - PMHx: 13:10 ADD/ADHD; Diabetes - IDDM; ab2 - PSHx: 13:10 None; ab2 - Immunization history:: Adult Immunizations up to date. - Social history:: Smoking status: Patient denies any tobacco usage or history of. ROS: 13:37 Constitutional: Negative for fever, and chills. Eyes: Negative for injury, pain, ms3 redness, and discharge, ENT: Negative for injury, pain, and discharge, Neck: Negative for injury, pain, and swelling, Cardiovascular: Negative for chest pain, and palpitations. Respiratory: Negative for shortness of breath, cough, wheezing, and pleuritic chest pain, Back: Negative for injury and pain, MS/Extremity: Negative for injury and deformity, Skin: Negative for injury, rash, and discoloration, Neuro: Negative for headache, weakness, numbness, tingling. Exam: 12:16 ECG was reviewed by the Attending Physician. ms3 13:37 Constitutional: This is a well developed, well nourished patient who is awake, alert, ms3 and in no acute distress. Head/Face: Normocephalic, atraumatic. Neck: Trachea midline, no cervical lymphadenopathy. Supple, full range of motion without nuchal rigidity, or vertebral point tenderness. No Meningismus. Chest/axilla: Normal chest wall appearance and motion. Nontender with no deformity. Respiratory: Lungs have equal breath sounds bilaterally, clear to auscultation and percussion. No rales, rhonchi or wheezes noted. No increased work of breathing, no retractions or nasal flaring. Abdomen/GI: Soft, non-tender, with normal bowel sounds. No distension or tympany. No guarding or rebound. No evidence of tenderness throughout. Skin: Warm, dry with normal turgor. Normal color with no rashes, no lesions, and no evidence of cellulitis. MS/ Extremity: Pulses equal, no cyanosis. Neurovascular intact. Full, normal range of motion. Neuro: Awake and alert, GCS 15, oriented to person, place, time, and situation. Cranial nerves II-XII grossly intact. Motor strength 5/5 in all extremities. Sensory grossly intact. Cerebellar exam normal. Normal gait. 13:37 Cardiovascular: Rate: tachycardic, Rhythm: regular, Pulses: Heart sounds: normal. Vital Signs: 13:08 BP 158 / 86; Pulse 112; Resp 20; Temp 98.2(TE); Pulse Ox 98% on R/A; Weight 86.18 kg; ab2 Height 5 ft. 10 in. (177.80 cm); Pain 7/10; 15:05 BP 153 / 89; Pulse 108; Resp 19; Pulse Ox 99% on R/A; vg1 15:58 BP 140 / 79; Pulse 99; Resp 16; Pulse Ox 98% on R/A; ww 16:52 BP 137 / 70; Pulse 99; Resp 18; Pulse Ox 98% ; ww 13:08 Body Mass Index 27.26 (86.18 kg, 177.80 cm) ab2 MDM: 13:58 Patient medically screened. ms3 15:55 Differential diagnosis: Nonspecific abd pain, gastritis, gastroenteritis, DKA. Data ms3 reviewed: vital signs, nurses notes, lab test result(s), EKG, radiologic studies. Data interpreted: monitor technician: rate is 100 beats/min, rhythm is sinus tachycardia. Counseling: I had a detailed discussion with the patient and/or guardian regarding: the historical points, exam findings, and any diagnostic results supporting the discharge/admit diagnosis, lab results, the need for outpatient follow up, to return to the emergency department if symptoms worsen or persist or if there are any questions or concerns that arise at home. ED course: Discussed labs, cxr, PE findings with patient. Patient to follow up with GI as instructed. patient understands/ agrees witih plan. Return precautions given to include worsening symptoms, or any other concerns. Patient is a/o x4, nad, non-toxic, ambulatory in ED, speaking full sentences and tolerating po.. 07/06 13:30 Order name: Basic Metabolic Panel; Complete Time: 14:10 07/06 13:30 Order name: CBC with Diff ww 07/06 13:30 Order name: LFT's; Complete Time: 14:10 07/06 13:30 Order name: Troponin HS; Complete Time: 14:10 07/06 13:40 Order name: Glucose, Ancillary Testing; Complete Time: 14:10 EDMS 07/06 13:41 Order name: Acetone, Serum ms3 07/06 13:30 Order name: XRAY Chest (1 view); Complete Time: 14:10 07/06 13:41 Order name: Phosphorus ms3 07/06 13:41 Order name: Acetone Level; Complete Time: 15:54 EDMS 07/06 13:41 Order name: Phosphorus; Complete Time: 15:54 EDMS 07/06 13:30 Order name: EKG; Complete Time: 13:31 07/06 13:30 Order name: Cardiac monitoring; Complete Time: 13:36 07/06 13:30 Order name: EKG - Nurse/Tech; Complete Time: 13:36 07/06 13:30 Order name: IV Saline Lock; Complete Time: 13:36 07/06 13:30 Order name: Labs collected and sent; Complete Time: 13:36 07/06 13:30 Order name: O2 Per Protocol; Complete Time: 13:36 07/06 13:30 Order name: O2 Sat Monitoring; Complete Time: 13:36 07/06 13:41 Order name: NPO; Complete Time: 14:02 ms3 EC:16 Rate is 110 beats/min. Rhythm is regular. QRS [place] is Normal. Clinical impression: ms3 Sinus tachycardia. Interpreted by me. Administered Medications: 14:12 Drug: Lactated Ringers Solution 1000 ml Route: IV; Rate: 2000 ml/hr; Site: right vg1 antecubital; 14:28 Drug: Benadryl (diphenhydrAMINE) 25 mg Route: IVP; Site: right antecubital; vg1 15:05 Follow up: Response: No adverse reaction vg1 14:30 Drug: Zofran (Ondansetron) 4 mg Route: IVP; Site: right antecubital; vg1 15:05 Follow up: Response: No adverse reaction; Marked relief of symptoms vg1 14:32 Drug: Reglan (metoCLOPramide) 10 mg Route: IVP; Site: right antecubital; vg1 15:04 Follow up: Response: No adverse reaction; Nausea is decreased vg1 Disposition Summary: 07/06/21 15:55 Discharge Ordered Location: Home ms3 Problem: new ms3 Condition: Stable ms3 Diagnosis - Nausea with vomiting, unspecified ms3 - Abdominal pain, Generalized ms3 - Type 1 diabetes mellitus with hyperglycemia ms3 Followup: ms3 - With: Luis Fernando Franks MD - When: 1 - 2 days - Reason: Discharge Instructions: - Discharge Summary Sheet ms3 - Type 1 Diabetes Mellitus, Diagnosis, Adult ms3 - Abdominal Pain, Adult, [id number] ms3 Forms: - Medication Reconciliation Form ms3 - Thank You Letter ms3 - Antibiotic Education ms3 - Prescription Opioid Use ms3 Prescriptions: - Reglan 10 mg Oral Tablet - take 1 tablet by ORAL route every 6 hours . take 30 minutes before meals and at ms3 bedtime; 20 tablet; Refills: 0, Product Selection Permitted Signatures: Dispatcher [employer] Rajni Urbina, RN RN vg1 Arturo Tom DO DO ms3 Olivia Becerra RN RN ww Josh Hendricks
--- NOTE | 2021-07-06 15:56 | ER ---
Nurse's Notes [facility] Name: Enio Bradley Age: 31 yrs Sex: Male : 1990 Arrival Date: 07/06/2021 Time: 12:51 Bed 7 Private MD: Diagnosis: Nausea with vomiting, unspecified;Abdominal pain, Generalized;Type 1 diabetes mellitus with hyperglycemia Presentation: 07/06 13:08 Chief complaint: Spouse and/or significant other states: "He was c/o chest pain this ab2 morning and then started having n/v. I took him to [facility] er and they d/c with nausea meds that are not helping.". Coronavirus screen: Vaccine status: Patient reports being unvaccinated. Client denies travel out of the [place] in the last 14 days. At this time, the client does not indicate any symptoms associated with coronavirus-19. Ebola Screen: Patient negative for fever greater than or equal to 101.5 degrees Fahrenheit, and additional compatible Ebola Virus Disease symptoms Patient denies exposure to infectious person. Patient denies travel to an Ebola-affected area in the 21 days before illness onset. No symptoms or risks identified at this time. Initial Sepsis Screen: Does the patient meet any 2 criteria? HR > 90 bpm. No. Patient's initial sepsis screen is negative. Does the patient have a suspected source of infection? No. Patient's initial sepsis screen is negative. Risk Assessment: Do you want to hurt yourself or someone else? Patient reports no desire to harm self or others. Onset of symptoms is unknown. 13:08 Method Of Arrival: Ambulatory ab2 13:08 Acuity: JAMAL 3 ab2 Triage Assessment: 13:11 General: Appears in no apparent distress. uncomfortable, Behavior is calm, cooperative, ab2 appropriate for age. Pain: Complains of pain in chest. GI: Reports nausea, vomiting. Historical: - Allergies: 13:10 No Known Allergies; ab2 - PMHx: 13:10 ADD/ADHD; Diabetes - IDDM; ab2 - PSHx: 13:10 None; ab2 - Immunization history:: Adult Immunizations up to date. - Social history:: Smoking status: Patient denies any tobacco usage or history of. Screenin:52 Abuse screen: Denies threats or abuse. Denies injuries from another. Nutritional ww screening: No deficits noted. Tuberculosis screening: No symptoms or risk factors identified. Fall Risk None identified. Assessment: 13:17 General: Appears in no apparent distress. uncomfortable, Behavior is calm, cooperative. lr4 Pain: Complains of pain in chest Pain currently is 10 out of 10 on a pain scale. Pain began 1 day ago. Is episodic. Neuro: No deficits noted. Cardiovascular: Heart tones S1 S2 Capillary refill < 3 seconds Pulses are palpable in right radial artery and left radial artery Rhythm is sinus rhythm Chest pain is described as epigastric burning with hx of gastroparesis. Respiratory: No deficits noted. GI: Abdomen is flat, non-distended, Reports upper abdominal pain, nausea, vomiting. 15:04 Reassessment: Patient appears in no apparent distress at this time. Patient and/or vg1 family updated on plan of care and expected duration. Pain level reassessed. Patient is alert, oriented x 3, equal unlabored respirations, skin warm/dry/pink. Vital Signs: 13:08 BP 158 / 86; Pulse 112; Resp 20; Temp 98.2(TE); Pulse Ox 98% on R/A; Weight 86.18 kg; ab2 Height 5 ft. 10 in. (177.80 cm); Pain 7/10; 15:05 BP 153 / 89; Pulse 108; Resp 19; Pulse Ox 99% on R/A; vg1 15:58 BP 140 / 79; Pulse 99; Resp 16; Pulse Ox 98% on R/A; ww 16:52 BP 137 / 70; Pulse 99; Resp 18; Pulse Ox 98% ; ww 13:08 Body Mass Index 27.26 (86.18 kg, 177.80 cm) ab2 ED Course: 12:51 Patient arrived in ED. kz 12:56 Arturo Tom DO is Attending Physician. ms3 13:10 Triage completed. ab2 13:11 Arm band placed on right wrist. ab2 13:33 Patient has correct armband on for positive identification. Bed in low position. Call ww light in reach. Side rails up X 1. 13:35 Inserted saline lock: 22 gauge in right antecubital area, using aseptic technique. vg1 ,using aseptic technique. Completed by head of data Blood collected. 13:35 Initial lab(s) drawn, by ED staff. vg1 13:42 Rene, Rajni, RN is Primary Nurse. vg1 13:58 XRAY Chest (1 view) In Process Unspecified. EDMS 14:04 Acetone, Serum Sent. ww 14:04 Phosphorus Sent. ww 15:55 Luis Fernando Franks MD is Referral Physician. ms3 16:52 No provider procedures requiring assistance completed. bleeding controlled, No ww redness/swelling at site. Pressure dressing applied. Administered Medications: 14:12 Drug: Lactated Ringers Solution 1000 ml Route: IV; Rate: 2000 ml/hr; Site: right vg1 antecubital; 14:28 Drug: Benadryl (diphenhydrAMINE) 25 mg Route: IVP; Site: right antecubital; vg1 15:05 Follow up: Response: No adverse reaction vg1 14:30 Drug: Zofran (Ondansetron) 4 mg Route: IVP; Site: right antecubital; vg1 15:05 Follow up: Response: No adverse reaction; Marked relief of symptoms vg1 14:32 Drug: Reglan (metoCLOPramide) 10 mg Route: IVP; Site: right antecubital; vg1 15:04 Follow up: Response: No adverse reaction; Nausea is decreased vg1 Outcome: 15:55 Discharge ordered by MD. ms3 16:52 Discharged to home ambulatory, with family. ww 16:52 Condition: stable 16:52 Discharge instructions given to patient, family, Instructed on discharge instructions, follow up and referral plans. medication usage, safety practices, Demonstrated understanding of instructions, follow-up care, medications, Prescriptions given X 1. 16:53 Patient left the ED. ww Signatures: Dispatcher [employer] EDMS Rajni López, RN RN vg1 Arturo Tom DO DO ms3 Olivia Becerra, RN RN ww Josh Hendricks Lashaunda RN RN lr4 Char Fletcher
[2021-07-06 17:57] VITALS: TEMP 98.2
[2021-07-06 18:00] VITALS: O2SAT 98
[2021-07-06 18:01] VITALS: BP 137/70
[2021-07-06 19:45] LABS: Blood Morphology Comment NOT SEEN (NOT SEEN); Platelet Estimate ADEQ; White Blood Cell Scan OK (OK)
--- NOTE | 2021-07-07 07:24 | EKG ---
Test Date: 2021-07-06 Test Time: 12:16:44 Under Trimmer: BANDAR MEASUREMENT RESULTS: Intervals: Rate: 110 [place]: 146 QRSD: 76 QT: 314 QTc: 424 [place]: P: 54 NJ: 146 QRS: 71 T: 13 INTERPRETIVE STATEMENTS: Sinus tachycardia Nonspecific T wave abnormality Abnormal ECG Compared to ECG 02/07/2020 06:51:34 T-wave abnormality now present Myocardial infarct finding no longer present Electronically Signed On 07-07-21 07:22:10 CDT by Robson Dasilva
== END 2021-07-06 16:53 | disposition home or self-care (01) ==
LOC: ER 12:46
DX: E10.65 Type 1 diabetes mellitus with hyperglycemia (principal); R10.84 Generalized abdominal pain; Z20.822 Contact with and (suspected) exposure to COVID-19
CPT/HCPCS: 36415; 71045; 80048; 80076; 82010; 82947; 84100; 84484; 85025; 93005; 96374; 96375; 99284; J1200; J2405; J2765; J7120

== ENCOUNTER 2021-07-07 09:02 | Inpatient (IN) | payer SELFPAY ==
--- OUTSIDE RECORDS SUMMARY | 2021-07-07 09:08 | XMS REPORT | Continuity of Care Document ---
:1990 Author Organization [facility] t Address [address] [place] [address] Care Team Providers Name Role Phone Ariana [...] 00 e Cognitive Cognitive Problem Active Alice raza deficit in Deficit in 5-07 Fa radha attention Attention 00:00: Prac tic 00 e Ulcer of Ulcer of Problem Active Desmond ge toe Toe 3-26 Family 00:00: Practic 00 e Family Family Problem Active [facility] Diabetes 00:00: Practi c mellitus Mellitus 00 e Family Family Problem Active [facility] cardiac Cardiac 00:00: Practic disorder Disorder 00 e Type 1 Type 1 Problem Active [facility] diabetes Diabetes 07-17 Family mellitus Mellitus 00:00: Practi c uncontroll Uncontroll 00 e ed ed Restless 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Desmond ge legs Legs - Family 00:00: Practic 00 e ACCIDENT Diagnosis Active 2017-03-28 M emoria 11-22 13:59:00 l ACCIDENT 13:00: Ministerio n 00 Active 11/22/2016 [facility] Attention Attention Disease Active 2006-04 Overview: Univers deficit deficit 0-22 Formattin ity o f hyperactiv hyperactiv 00:00: g of this [place] ity ity 00 note Medical disorder disorder might be Bran ch (ADHD) (ADHD) different from the original. ICD10 Diagnosis Term [employer] Utility Uncontroll Uncontroll Disease Active Overview : Univers ed type 1 ed type 1 6-10 Formattin i ty of diabetes diabetes 00:00: g of this [place] as mellitus mellitus 00 note Medica l might be Branch different from the original. Dx age 4ICD10 Diagnosis Term [employer] Utility Trichomoni Trichomoni Disease Active U nivers asis asis ity of [facility] Diabetes Problem Resolve 2016-11-26 Me moria mellitus [...] neck encounter level, initial encounter 11/23/2016 11/26/2016 [facility] Allergies, Adverse Reactions, Alerts Allergy Allergy Status Severity Reaction(s) Onset Inactive Treating Comm ents Source Name Type Date Date Clinician NO KNOWN Drug Active Univers ALLERGIE Class ity of [facility] [place] [facility] [place] Social History Social Habit Start Date Stop Date Quantity Comments Source Exposure to Not sure University of SARS-CoV-2 [place] [facility] (event) Branch History [facility] University o f Alcohol Comment [place] [facility] History of Snuff User University of tobacco use [facility] Alcohol intake 2021-04-27 2021-04-27 Current drinker Unive rsity of 00:00:00 00:00:00 of alcohol [place] [facility] (finding) Branch History [facility] 2020-02-03 2020-02-03 2 University o f Alcohol Frequency 00:00:00 00:00:00 [place] [facility] History [facility] 2020-02-03 2020-02-03 99 University o f Alcohol Std 00:00:00 00:00:00 [place] [facility] Drinks Branch History [facility] 2020-02-03 2020-02-03 99 University o f Alcohol Binge 00:00:00 00:00:00 [place] [facility] Tobacco Comment 2008-08-06 2008-08-06 on and off Universit y of 00:00:00 00:00:00 [facility] Sex Assigned At [birth year] Universit y of 00:00:00 00:00:00 [facility] Smoking Status Start Date Stop Date Source Never smoker [facility] Branch Medications Ordered Filled Start Stop Current [...] Mon07/06/21 at 0230, STAT proMETHazin 2021-0 Yes [id number] 25mg Take 1 Univers e 25 mg [...] Sensor Practic e FreeStyle FreeStyle No FreeStyle [facility] Alessandra 14 Alessandra 14 Alessandra 14 Fam tabitha Day Sensor Day Sensor Day Sensor Practic kit APPLY 1 kit APPLY 1 kit APPLY e PATCH TO PATCH TO 1 PATCH TO ARM AND ARM AND ARM AND CHANGE CHANGE CHANGE EVERY 14 EVERY 14 EVERY 14 DAYS DAYS DAYS Lantus Lantus No Lantus [facility] U-100 U-100 U-100 Family Insulin 100 [...] UNITS AT BEDTIME metoclopram metoclopram No metoclopra [facility] prosper 5 mg prosper 5 mg [...] 2008-02-15 Completed Universit y of Vaccine 00:00:00 [facility] Influenza Virus 2008-02-15 Completed Universit y of Vaccine 00:00:00 [facility] Influenza Virus 2008-02-15 Completed Universit y of Vaccine 00:00:00 [facility] Influenza Virus 2008-02-15 Completed Universit y of Vaccine 00:00:00 [facility] Influenza Virus 2004-02-19 Completed Universit y of Vaccine 00:00:00 [facility] Influenza Virus 2004-02-19 Completed Universit y of Vaccine 00:00:00 [facility] Influenza Virus 2004-02-19 Completed Universit y of Vaccine 00:00:00 [facility] Influenza Virus 2004-02-19 Completed Universit y of Vaccine 00:00:00 [facility] Vital Signs Vital Name Observation Time Observation Value Comments Source Systolic blood 2021-07-06 08:28:15 120 mm[Hg] Univer sity of pressure [facility] Diastolic blood 2021-07-06 08:28:15 82 mm[Hg] Unive rsity of pressure [facility] Heart rate 2021-07-06 08:28:15 99 /min Universi ty of [facility] Respiratory rate 2021-07-06 08:28:15 20 /min [facility] Oxygen saturation in 2021-07-06 08:28:15 100 /min [facility] Arterial blood by [facility] Pulse oximetry Branch Body temperature 2021-07-06 02:17:00 37.[address] [facility] [address] [facility] Body weight 2021-07-06 02:17:00 86.183 kg Universi ty [facility] BMI 2021-07-06 02:17:00 27.26 kg/m2 Universi [facility] Body weight 2021-04-22 21:56:00 88.451 kg Universi [facility] BMI 2021-04-22 21:56:00 27.98 kg/m2 [facility] BP Diastolic 2020-10-21 00:00:00 67 mm[Hg] [facility] Height 2020-10-21 00:00:00 71 [in_i] [facility] BMI (Body Mass 2020-10-21 00:00:00 25.7 kg/m2 [facility] BP Systolic 2020-10-21 00:00:00 101 mm[Hg] [facility] Body Weight 2020-10-21 00:00:00 184.2 [lb_av] [facility] Height 2020-06-19 00:00:00 71 [in_i] [facility] BMI (Body Mass 2020-06-19 00:00:00 26.2 kg/m2 [facility] Body Weight 2020-06-19 00:00:00 188 [lb_av] [facility] Respitory Rate 2016-11-24 03:00:00 [...] Sourc e POCT GLUCOSE 2021-07-06 09:31:00 Jb [facility] (AUTOMATED) [facility] Branch LIPASE 2021-07-06 03:10:00 Jb [facility] TROPONIN I 2021-07-06 03:10:00 Juan C Kunz [facility] COMP. METABOLIC PANEL 2021-07-06 03:10:00 Oswaldo Muhammad [facility] ([id number]) [facility] CBC WITH DIFF 2021-07-06 03:10:00 Jb [facility] EXTRA TUBE DK. GREEN 2021-07-06 03:10:00 Oswaldo Muhammad [facility] CONSENT/REFUSAL FOR 2021-07-06 02:15:31 [facility], [facility] Name [facility] Branch [facility]REATMENT [facility] 2021-05-24 21:01:50 Doctor Unassigned, No U [facility] FOR FREE TREATMENT Name [facility] h FORM Removal of silastic [facility] [...] Facility Department ID 2021-07-052021-07-06 Emergency X JB [facility] ERT [id number] Univers 21:19:00 04:37:00 OSWALDO ity of [facility] 2021-07-05 2021-07-06 Emergency Ziggy Seo TRAUMA 1.2.840 .114 [id number] Univers 21:19:00 04:37:00 Oswaldo Muhammad CALL [id number] [place] [id number] [facility] 014 Branch 2021-05-24 2021-05-24 Orders Doctor KHANH 1.2.840.114 [id number] Univers 00:00:00 00:00:00 Only Unassigned, MARSHALL [id number] ity of [place] [facility] 4.2.7.2.686 [place] as [phone] [facility] 009 Branch 2021-04-22 2021-04-22 Office Mar [facility] 1.2.840.114 [id number] Univers 14:45:00 16:44:38 Visit Beth MATTHEWS [id number] ity [place] C[place] [id number] [facility] AND DELAND 136 Branch DIABETES CLINIC 2021-01-07 2021-01-07 Outpatient Daniel_T VFP VFP [id number] [address] [place] [address] 02:08:00 02:08:00 [id number] Family Practic e 2020-12-03 2020-12-03 Outpatient Daniel_T VFP VFP [id number] [address] [place] [address] 01:20:00 01:20:00 [id number] Family Practic e 2020-10-29 2020-10-29 Outpatient Daniel_T VFP VFP [id number] [address] [place] [address] 01:46:00 01:46:00 [id number] Family Practic e 2020-10-23 2020-10-23 Outpatient Daniel_T VFP VFP [id number] [address] [place] [address] 09:07:00 09:07:00 [id number] Family Practic e 2020-10-21 2020-10-21 Outpatient Daniel_T VFP VFP [id number] [address] [place] [address] 06:24:00 06:24:00 [id number] Family Practic e 2020-10-21 2020-10-21 Ted VFP [place] - [id number] V illage 00:00:00 00:00:00 [facility] Family PendletonDoroteo MD: [id number] JESSIKA_TRESSA_Oliver hay [facility], [address] [address] , Ph. 2020-09-25 2020-09-25 Outpatient Daniel_T VFP VFP [id number] [address] [place] [address] 01:01:00 01:01:00 [id number] Family Practic e 2020-08-21 2020-08-21 Outpatient Daniel_T VFP VFP [id number] [address] [place] [address] 01:02:00 01:02:00 [id number] Family Practic e 2020-08-14 2020-08-14 Outpatient Daniel_T VFP VFP [id number] [address] [place] [address] 02:02:00 02:02:00 [id number] Family Practic e 2020-07-03 2020-07-03 Outpatient Daniel_T VFP VFP [id number] [address] [place] [address] 01:07:00 01:07:00 [id number] Family Practic e 2020-06-19 2020-06-19 Outpatient Daniel_T VFP VFP [id number] [address] [place] [address] 05:48:00 05:48:00 [id number] Family Practic e 2020-06-19 2020-06-19 Ted VFP [place] - [id number] V illage 00:00:00 00:00:00 [facility] Family PendletonDoroteo MD: [id number] FABIANA_Oliver hay [facility], [address] [address] , Ph. 2020-05-17 2020-05-17 Outpatient Daniel_T VFP VFP [id number] [address] [place] [address] 01:04:00 01:04:00 [id number] Family Practic e 2020-05-14 2020-05-14 Outpatient Daniel_T VFP VFP [id number] [address] [place] [address] 12:02:00 12:02:00 [id number] Family Practic e 2020-03-04 2020-03-04 Orders Doctor KHANH 1.2.840.114 [id number] 00:00:00 00:00:00 Only Unassigned, MARSHALL 350.1.13.10 [place] [facility] 4.2.7.2.686 [id number] 2020-02-25 2020-02-25 [facility] 1.2.840.114 [id number] 09:18:37 23:59:00 Encounter [facility] [id number] Surgical 4.2.7.2.686 Specialti [id number] es [address] [place] 2020-02-25 2020-02-25 Office [facility] 1.2.840.114 [id number] 09:02:34 09:17:34 Visit [facility] [id number] Surgical 4.2.7.2.686 Specialti [id number] es [address] [place] 2020-02-21 2020-02-21 Telephone [facility] [id number] 00:00:00 00:00:00 [facility] [id number] Surgical 4.2.7.2.686 Specialti [id number] es [address] [place] 2016-11-24 2016-11-24 Emergency [facility] [id number] [facility] 01:46:00 03:02:00 [facility] 00 l [facility] Results Test Description Test Time Test Comments Results Result Comments Source POCT GLUCOSE (AUTOMATED) 2021-07-06 09:32:34 Test Item Value Reference Range Interpretation Comme nts POCT GLU (test code = 0504181055) 312 mg/dL 70-110 H Lab Interpretation (test code = 70810-8) Abnormal [facility] [id number] 07:02:35 Test Item Value Reference Interpretation Comments Range TROPONIN I (test 0.004 ng/mL See_Comment [Automated code = 2314109721) message] The system which generated this result [...] biotin. Lab Interpretation Normal (test code = 91558-5) [facility]2022-03-15 06:49:16 Test Item Value Reference Range Interpretation Comments LIPASE (test code = 7370773921) 23 U/L 0-220 Lab Interpretation (test code = Normal 68740-9) [facility] WITH [id number] 03:49:28 Test Item Value Reference Range Interpretation Comments WBC (test code = See_Comment [Automated 0947-2) message] The sy stem which generated this result transmitted reference range : 4.20 - 10.70 10*3/?L. The reference range was not used to interpret this result as normal/abnormal . RBC (test code = See_Comment [Automated 900-8) message] The sy stem which generated this [...] (test code = 36.2 fL 38.5-51.6 L 87211-6) RDW-CV (test code = 12.1 % 12.1-15.4 788-0) PLT (test code = See_Comment [Automated 187-3) message] The sy stem which generated this result transmitted reference range : 150 - 328 10*3/ ?L. The reference r aixa was not used to interpret this result as normal/abnormal . MPV (test code = 9.9 fL 9.8-13.0 75841-1) IPF % (test code = 3.1 % 1.2-10.7 Platelet count 2218491659) measured by fluorescence method. NRBC/100 WBC (test See_Comment [Automat ed code = 6945671022) message] The system which generated this result transmitted reference range : 0.0 - 10.0 /100 WBCs. The refer ence range was not u sed to interpret th is result as normal/abnormal . NRBC x10^3 (test code <0.01 See_Comment [Auto mated = 2481763552) message] The s ystem which generated this result transmitted reference range : 10*3/?L. The reference range was not used to interpret this result as normal/abnormal . GRAN MAT (NEUT) % 77.8 % (test code = 770-8) IMM GRAN % (test code 0.30 % = 4508213537) LYMPH % (test code = 17.0 % 736-9) MONO % (test code = 4.2 % 5905-5) EOS % (test code = 0.3 % 713-8) BASO % (test code = 0.4 % 706-2) GRAN MAT x10^3(ANC) 5.87 10*3/uL 1.99-6.95 (test code = 3012596465) IMM GRAN x10^3 (test <0.03 0.00-0.06 code = 7493999706) LYMPH x10^3 (test code 1.28 10*3/uL 1.09-3.23 = 731-0) MONO x10^3 (test code 0.32 10*3/uL 0.36-1.02 L = 742-7) EOS x10^3 (test code = <0.03 0.06-0.53 L 711-2) BASO x10^3 (test code 0.03 10*3/uL 0.01-0.09 = 704-7) Lab Interpretation Abnormal (test code = 68362-7) [facility]. METABOLIC PANEL (37790)2021-07-06 03:36:26 Test Item Value Reference Range Interpretation Comments NA (test code = 135 mmol/L 135-145 1219823425) K (test code = 4.2 mmol/L 3.5-5.0 6916585137) CL (test code = 100 mmol/L 98-108 2842780350) CO2 TOTAL (test code = 25 mmol/L 23-31 1193409082) AGAP (test code = 2-16 4171191085) BUN (test code = 31 mg/dL 7-23 H 9671254090) GLUCOSE (test code = 337 mg/dL 70-110 H 5737560466) CREATININE (test code = 1.40 mg/dL 0.60-1.25 H 0459500014) TOTAL BILI (test code = 1.0 mg/dL 0.1-1.9 6510575906) CALCIUM (test code = 9.2 mg/dL 8.6-10.6 3160721525) T PROTEIN (test code = 7.7 g/dL 6.3-8.2 8027301297) ALBUMIN (test code = 4.8 g/dL 3.5-5.0 2037036780) ALK PHOS (test code = 79 U/L 34-122 7386732501) ALTv (test code = 26 U/L 5-50 1742-6) AST(SGOT) (test code = 25 U/L 13-40 2441581122) eGFR (test code = mL/min/1.73m2 1995963998) PARKER (test code = PARKER) Association of [...] tests). Lab Interpretation Abnormal (test code = 76514-5) [facility] [id number] 02:01:00 Test Item Value Reference Range Interpretation Comments CULTURE (BEAKER) (test No growth in 5 days code = 1095) BLOOD [id number] 02:01:00 Test Item Value Reference Range Interpretation Comments CULTURE (BEAKER) (test No growth in 5 days code = 1095) MRSA [id number] 09:59:00 Test Item Value Reference Range Interpretation Comments CULTURE (BEAKER) (test code No MRSA isolated = 1095) TISSUE [id number] 15:35:00Surgical Pathology Report Case: [id number] Authorizing Provider: Won Randall MD Collected: 10/17/2018 0823 Ordering Location: [address] Received: 10/17/2018 1401 Service Pathologist: Natividad Shrestha MD Specimens: A) - Duodenum, random bx B) -Biopsy, Gastric, body and antrum A. DUODENUM , RANDOM BIOPSY- NO DIAGNOSTIC ALTERATIONB. STOMACH, BODY AND ANTRUM, BIOPSY- CHRONIC INACTIVE GASTRITIS, MILD- NO INTESTINAL METAPLASIA, DYSPLASIA OR INVASIVE CARCINOMA IDENTIIFIED- NO HELICOBACTER PYLORI LIKE ORGANISMS IDENTIFIED ON WARTHIN STARRY STAIN Signing Pathologist Direct Phone Line: [phone] signed by Natividad Shrestha MD on 10/18/2018 at 3:35 [id number] x 2, [id number] and postop diagnosis: intractable vomiting, presence of [...] evaluated Immunohistochemistry technical testing was performed at [facility], Pathology Laboratory where it was [...] to perform high complexity clinical laboratory testing.POCT-GLUCOSE [id number] 10:09:00 Test Item Value Reference Range Interpretation Comments POC-GLUCOSE METER 118 mg/dL 70-110 H TESTED AT [facility] 6720 ([facility]) (test code = CAROLA [place] [facility] 1538) [address] [id number] 06:56:00 Test Item Value Reference Range Interpretation Comments MAGNESIUM (BEAKER) (test code = 2.0 mg/dL 1.6-2.6 627) BASIC METABOLIC [id number] 06:40:00 Test Item Value Reference Range Interpretation [...] GLUCOSE RANDOM 249 mg/dL 70-105 H ([facility]) (test code = 652) CALCIUM ([facility]) 8.5 mg/dL 8.4-10.2 (test code = 697) EGFR ([facility]) (test 94 mL/min/1.73 ESTIMA GUNNAR GFR IS code = 1092) sq m NOT ACCURATE CREATININE CLEARANCE IN PREDICTING GLOMERULAR FILTRATION RATE . ESTIMATED GFR I S NOT APPLICABLE FOR DIALYSIS PATIEN TS. POCT-GLUCOSE [id number] 20:40:00 Test Item Value Reference Range Interpretation Comments POC-GLUCOSE METER 172 mg/dL 70-110 H TESTED AT [place] [address] ([facility]) (test code = CAROLA Roberson [facility] 1538) [address] POCT-GLUCOSE [id number] 18:25:00 Test Item Value Reference Range Interpretation Comments POC-GLUCOSE METER 200 mg/dL 70-110 H TESTED AT [place] [address] ([facility]) (test code = CAROLA Roberson [facility] 1538) [address] POCT-GLUCOSE [id number] 15:26:00 Test Item Value Reference Range Interpretation Comments POC-GLUCOSE METER 232 mg/dL 70-110 H TESTED AT [place] [address] ([facility]) (test code = CAROLA Roberson [place] 1538) [address] POCT-GLUCOSE [id number] 13:00:00 Test Item Value Reference Range Interpretation Comments POC-GLUCOSE METER 228 mg/dL 70-110 H TESTED AT [place] [address] ([facility]) (test code = CAROLA Roberson [place] 1538) [address] POCT-GLUCOSE [id number] 10:43:00 Test Item Value Reference Range Interpretation Comments POC-GLUCOSE METER 207 mg/dL 70-110 H TESTED AT [place] [address] ([facility]) (test code = CAROLA Roberson [place] 1538) [address] POCT-GLUCOSE [id number] 09:16:00 Test Item Value Reference Range Interpretation Comments POC-GLUCOSE METER 269 mg/dL 70-110 H TESTED AT [place] [address] ([facility]) (test code = CAROLA Roberson [place] 1538) [address] POCT-GLUCOSE [id number] 07:26:00 Test Item Value Reference Range Interpretation Comments POC-GLUCOSE METER 239 mg/dL 70-110 H TESTED AT [facility] 6720 (BEAKER) (test code = [place] 1535) [address] BASIC METABOLIC [id number] 06:42:00 Test Item Value Reference Range Interpretation [...] S NOT APPLICABLE FOR DIALYSIS PATIEN TS. [id number] 06:42:00 Test Item Value Reference Range Interpretation Comments PHOSPHORUS (BEAKER) (test code = 2.0 mg/dL 2.3-4.7 L 604) [id number] 06:42:00 Test Item Value Reference Range Interpretation Comments MAGNESIUM (BEAKER) (test code = 2.3 mg/dL 1.6-2.6 627) CBC W/PLT COUNT & AUTO [id number] 06:34:00 Test Item Value Reference Range Interpretation [...] PERCENT (BEAKER) (test code = 2801) POCT-GLUCOSE [id number] 22:23:00 Test Item Value Reference Range Interpretation Comments POC-GLUCOSE METER 237 mg/dL 70-110 H TESTED AT [facility] 67[address] (BEAKER) (test code = CAROLA Roberson [place] 1538) [address] POCT-GLUCOSE [id number] 20:39:00 Test Item Value Reference Range Interpretation Comments POC-GLUCOSE METER 298 mg/dL 70-110 H TESTED AT [place] [address] (BEAKER) (test code = CAROLA Roberson [facility] 1538) [address] POCT-GLUCOSE [id number] 17:49:00 Test Item Value Reference Range Interpretation Comments POC-GLUCOSE METER 255 mg/dL 70-110 H TESTED AT [place] [address] (BEAKER) (test code = CAROLA Roberson [facility] 1538) [address] POCT-GLUCOSE [id number] 13:35:00 Test Item Value Reference Range Interpretation Comments POC-GLUCOSE METER 190 mg/dL 70-110 H TESTED AT [place] [address] (BEAKER) (test code = CAROLA Roberson [facility] 1538) [address] POCT-GLUCOSE [id number] 12:31:00 Test Item Value Reference Range Interpretation Comments POC-GLUCOSE METER 204 mg/dL 70-110 H TEST[facility] AT [place] [address] [facility] (test code = CAROLA Roberson [facility] 1538) [address] POCT-GLUCOSE [id number] 11:38:00 Test Item Value Reference Range Interpretation Comments POC-GLUCOSE METER 165 mg/dL 70-110 H TESTED AT [place] [address] (BEAKER) (test code = CAROLA Roberson [facility] 1538) [address] POCT-GLUCOSE [id number] 10:35:00 Test Item Value Reference Range Interpretation Comments POC-GLUCOSE METER 231 mg/dL 70-110 H TESTED AT [place] [address] (BEAKER) (test code = CAROLA Roberson [facility] 1538) [address] BASIC METABOLIC [id number] 09:52:00 Test Item Value Reference Range Interpretation [...] S NOT APPLICABLE FOR DIALYSIS PATIEN TS. [id number] 09:52:00 Test Item Value Reference Range Interpretation Comments PHOSPHORUS (BEAKER) (test code = 2.0 mg/dL 2.3-4.7 L 604) [id number] 09:52:00 Test Item Value Reference Range Interpretation Comments MAGNESIUM (BEAKER) (test code = 2.2 mg/dL 1.6-2.6 627) POCT-GLUCOSE [id number] 09:28:00 Test Item Value Reference Range Interpretation Comments POC-GLUCOSE METER 213 mg/dL 70-110 H TESTED AT [place] [address] ([facility]) (test code = CAROLA Roberson [facility] 1538) [address] RAD, ABDOMEN/KUB, 1 VIEW [id number] 09:12:00Reason for exam:->recurrent vomitingShould this be performed [...] MDReport Verified Date/Time: 10/16/2018 09:12:50 Reading Location: [facility] Radiology Reading Room POCT-GLUCOSE [id number] 08:41:00 Test Item Value Reference Range Interpretation Comments POC-GLUCOSE METER 206 mg/dL 70-110 H TESTED AT [place] [address] ([facility]) (test code = [place] 1538) [address] POCT-GLUCOSE [id number] 07:46:00 Test Item Value Reference Range Interpretation Comments POC-GLUCOSE METER 203 mg/dL 70-110 H TESTED AT [facility] 6720 (BEAKER) (test code = [place] 1538) [address] [id number] 07:14:00 Test Item Value Reference Range Interpretation Comments MAGNESIUM (BEAKER) 2.2 mg/dL 1.6-2.6 Specimen slightly (test code = 627) hemolyzed [id number] 07:14:00 Test Item Value Reference Range Interpretation Comments PHOSPHORUS (BEAKER) 2.4 mg/dL 2.3-4.7 Specimen slightly (test code = 604) hemolyzed BASIC METABOLIC [id number] 07:14:00 Test Item Value Reference Range Interpretation [...] APPLICABLE FOR DIALYSIS PATIEN TS. LACTIC ACID, [id number] 06:58:00 Test Item Value Reference Range Interpretation Comments LACTATE BLOOD ARTERIAL (2) 1.0 mmol/L 0.5-2.2 (BEAKER) (test code = 2874) CBC W/PLT COUNT & AUTO [id number] 06:47:00 Test Item Value Reference Range Interpretation [...] (BEAKER) (test code = 2801) HEMOGLOBIN AND [id number] 06:42:00 Test Item Value Reference Range Interpretation Comments HEMOGLOBIN (BEAKER) (test code = 11.2 GM/DL 13.7-17.5 L 410) HEMATOCRIT ([facility]) (test code = 33.1 % 40.1-51.0 L 411) POCT-GLUCOSE [id number] 06:22:00 Test Item Value Reference Range Interpretation Comments POC-GLUCOSE METER 193 mg/dL 70-110 H TESTED AT [place] [address] ([facility]) (test code = CAROLA Roberson [place] 1538) [address] POCT-GLUCOSE [id number] 05:31:00 Test Item Value Reference Range Interpretation Comments POC-GLUCOSE METER 185 mg/dL 70-110 H TESTED AT [place] [address] ([facility]) (test code = CAROLA Roberson [place] 1538) [address] POCT-GLUCOSE [id number] 04:02:00 Test Item Value Reference Range Interpretation Comments POC-GLUCOSE METER 191 mg/dL 70-110 H TESTED AT [place] [address] ([facility]) (test code = CAROLA Roberson [place] 1538) [address] POCT-GLUCOSE [id number] 03:08:00 Test Item Value Reference Range Interpretation Comments POC-GLUCOSE METER 170 mg/dL 70-110 H TESTED AT [place] [address] ([facility]) (test code = CAROLA Roberson [place] 1538) [address] POCT-GLUCOSE [id number] 02:24:00 Test Item Value Reference Range Interpretation Comments POC-GLUCOSE METER 155 mg/dL 70-110 H TESTED AT [place] [address] ([facility]) (test code = CAROLA Rob[place] 1538) [address] POCT-GLUCOSE [id number] 01:43:00 Test Item Value Reference Range Interpretation Comments POC-GLUCOSE METER 158 mg/dL 70-110 H TESTED AT [place] [address] ([facility]) (test code = CAROLA Roberson [place] 1538) [address] BASIC METABOLIC [id number] 00:59:00 Test Item Value Reference Range Interpretation [...] S NOT APPLICABLE FOR DIALYSIS PATIEN TS. [id number] 00:58:00 Test Item Value Reference Range Interpretation Comments MAGNESIUM (BEAKER) 2.4 mg/dL 1.6-2.6 Specimen slightly (test code = 627) hemolyzed [id number] 00:58:00 Test Item Value Reference Range Interpretation Comments PHOSPHORUS (BEAKER) 1.6 mg/dL 2.3-4.7 L Specimen slightly (test code = 604) hemolyzed HEMOGLOBIN AND [id number] 00:31:00 Test Item Value Reference Range Interpretation Comments HEMOGLOBIN (BEAKER) (test code = 11.9 GM/DL 13.7-17.5 L 410) HEMATOCRIT (BEAKER) (test code = 34.5 % 40.1-51.0 L 411) POCT-GLUCOSE [id number] 00:30:00 Test Item Value Reference Range Interpretation Comments POC-GLUCOSE METER 188 mg/dL 70-110 H TESTED AT [place] [address] ([facility] (test code = CAROLA Roberson [facility] 1538) [address] POCT-GLUCOSE [id number] 23:07:00 Test Item Value Reference Range Interpretation Comments POC-GLUCOSE METER 191 mg/dL 70-110 H TESTED AT [place] [address] ([facility]) (test code = CAROLA Roberson [facility] 1538) [address] POCT-GLUCOSE [id number] 22:03:00 Test Item Value Reference Range Interpretation Comments POC-GLUCOSE METER 205 mg/dL 70-110 H TESTED AT [place] [address] ([facility]) (test code = CAROLA Roberson [facility] 1538) [address] BASIC METABOLIC [id number] 21:06:00 Test Item Value Reference Range Interpretation [...] APPLICABLE FOR DIALYSIS PATIEN TS. VANCOMYCIN LEVEL, [id number] 21:04:00 Test Item Value Reference Range Interpretation Comments VANCOMYCIN TROUGH ([facility]) (test 5.8 ug/mL 10.0-20.0 L code = 522) If level is >20, hold scheduled vancomycin dose and contact PharmD/MD. Thank youPOCT-GLUCOSE [id number] 21:00:00 Test Item Value Reference Range Interpretation Comments POC-GLUCOSE METER 202 mg/dL 70-110 H TESTED AT [place] [address] ([facility]) (test code = [place] 1538) [address] POCT-GLUCOSE [id number] 20:08:00 Test Item Value Reference Range Interpretation Comments POC-GLUCOSE METER 180 mg/dL 70-110 H TESTED AT [place] [address] ([facility]) (test code = [place] 1538) [address] POCT-GLUCOSE [id number] 18:39:00 Test Item Value Reference Range Interpretation Comments POC-GLUCOSE METER 175 mg/dL 70-110 H TESTED AT [place] [address] ([facility]) (test code = [place] 1538) [address] POCT-GLUCOSE [id number] 17:22:00 Test Item Value Reference Range Interpretation Comments POC-GLUCOSE METER 209 mg/dL 70-110 H TESTED AT [facility] (BEAKER) (test code = CAROLA Roberson [place] 1538) [address] URINALYSIS W/ REFLEX URINE [id number] 16:58:00 Test Item Value Reference Range Interpretation [...] SOURCE(BEAKER) (test code = 2795) HEMOGLOBIN AND [id number] 16:36:00 Test Item Value Reference Range Interpretation Comments HEMOGLOBIN (BEAKER) (test code = 13.0 GM/DL 13.7-17.5 L 410) HEMATOCRIT (BEAKER) (test code = 37.3 % 40.1-51.0 L 411) POCT-GLUCOSE [id number] 16:20:00 Test Item Value Reference Range Interpretation Comments POC-GLUCOSE METER 217 mg/dL 70-110 H TESTED AT [facility] (BEAKER) (test code = CAROLA Roberson [place] 1538) [address] BASIC METABOLIC [id number] 16:19:00 Test Item Value Reference Range Interpretation [...] S NOT APPLICABLE FOR DIALYSIS PATIMICHELLE TS. [id number] 16:15:00 Test Item Value Reference Range Interpretation Comments PHOSPHORUS (BEAKER) (test code = 3.4 mg/dL 2.3-4.7 604) [id number] 16:15:00 Test Item Value Reference Range Interpretation Comments MAGNESIUM (BEAKER) (test code = 2.1 mg/dL 1.6-2.6 627) POCT-GLUCOSE [id number] 15:13:00 Test Item Value Reference Range Interpretation Comments POC-GLUCOSE METER 205 mg/dL 70-110 H TESTED AT [place] [address] ([facility]) (test code = [place]A [place] 1538) [address] POCT-GLUCOSE [id number] 14:17:00 Test Item Value Reference Range Interpretation Comments POC-GLUCOSE METER 154 mg/dL 70-110 H TESTED AT [place] [address] ([facility]) (test code = CAROLA JJ 1538) [address] POCT-GLUCOSE [id number] 13:34:00 Test Item Value Reference Range Interpretation Comments POC-GLUCOSE METER 144 mg/dL 70-110 H TESTED AT [place] [address] ([facility]) (test code = CAR[place]A JJ 1538) [address] BASIC METABOLIC [id number] 12:52:00 Test Item Value Reference Range Interpretation [...] S NOT APPLICABLE FOR DIALYSIS PATIEN TS. [id number] 12:45:00 Test Item Value Reference Range Interpretation Comments PHOSPHORUS (BEAKER) (test code = 1.8 mg/dL 2.3-4.7 L 604) [id number] 12:45:00 Test Item Value Reference Range Interpretation Comments MAGNESIUM (BEAKER) (test code = 2.4 mg/dL 1.6-2.6 627) BLOOD GAS, [id number] 12:26:00 Test Item Value Reference Range Interpretation [...] code = 1819) 21.0 % HEMOGLOBIN AND [id number] 12:24:00 Test Item Value Reference Range Interpretation Comments HEMOGLOBIN (BEAKER) (test code = 11.9 GM/DL 13.7-17.5 L 410) HEMATOCRIT (BEAKER) (test code = 34.2 % 40.1-51.0 L 411) POCT-GLUCOSE [id number] 12:23:00 Test Item Value Reference Range Interpretation Comments POC-GLUCOSE METER 170 mg/dL 70-110 H TESTED AT [place] [address] ([facility]) (test code = [facility] 1538) [address] POCT-GLUCOSE [id number] 10:54:00 Test Item Value Reference Range Interpretation Comments POC-GLUCOSE METER 182 mg/dL 70-110 H TESTED AT [place] [address] ([facility]) (test code = [facility] 1538) [address] BASIC METABOLIC [id number] 09:55:00 Test Item Value Reference Range Interpretation [...] NOT APPLICABLE FOR DIALYSIS PATIEN TS. POCT-GLUCOSE [id number] 09:44:00 Test Item Value Reference Range Interpretation Comments POC-GLUCOSE METER 217 mg/dL 70-110 H TESTED AT [place] [address] ([facility]) (test code = [facility] 1538) [address] BLOOD GAS, [id number] 08:28:00 Test Item Value Reference Range Interpretation [...] (test code = 1819) 21.0 % POCT-GLUCOSE [id number] 08:24:00 Test Item Value Reference Range Interpretation Comments POC-GLUCOSE METER 207 mg/dL 70-110 H TESTED AT [place] [address] (BEAKER) (test code = [facility] 1538) [address] POCT-GLUCOSE [id number] 06:39:00 Test Item Value Reference Range Interpretation Comments POC-GLUCOSE METER 203 mg/dL 70-110 H TESTED AT [place] [address] ([facility] (test code = [facility] 1538) [address] BASIC METABOLIC [id number] 06:37:00 Test Item Value Reference Range Interpretation [...] NOT APPLICABLE FOR DIALYSIS PATIEN TS. POCT-GLUCOSE [id number] 05:26:00 Test Item Value Reference Range Interpretation Comments POC-GLUCOSE METER 253 mg/dL 70-110 H TESTED AT [facility] (BEAKER) (test code = [place] 1538) [address] BASIC METABOLIC [id number] 05:07:00 Test Item Value Reference Range Interpretation [...] S NOT APPLICABLE FOR DIALYSIS PATIEN TS. [id number] 05:07:00 Test Item Value Reference Range Interpretation Comments MAGNESIUM (BEAKER) (test code = 2.0 mg/dL 1.6-2.6 627) [id number] 05:07:00 Test Item Value Reference Range Interpretation Comments PHOSPHORUS (BEAKER) (test code = 2.8 mg/dL 2.3-4.7 604) BLOOD GAS, [id number] 05:01:00 Test Item Value Reference Range Interpretation [...] code = 1819) 21.0 % LACTIC ACID, [id number] 04:58:00 Test Item Value Reference Range Interpretation Comments LACTATE BLOOD ARTERIAL (2) 0.6 mmol/L 0.5-2.2 (BEAKER) (test code = 2874) CBC W/PLT COUNT & AUTO [id number] 04:57:00 Test Item Value Reference Range Interpretation [...] PERCENT (BEAKER) (test code = 2801) POCT-GLUCOSE [id number] 04:20:00 Test Item Value Reference Range Interpretation Comments POC-GLUCOSE METER 220 mg/dL 70-110 H TESTED AT [place] [address] ([facility]) (test code = [facility] 1538) [address] POCT-GLUCOSE [id number] 03:44:00 Test Item Value Reference Range Interpretation Comments POC-GLUCOSE METER 243 mg/dL 70-110 H TESTED AT [place] [address] ([facility]) (test code = [facility] 1538) [address] POCT-GLUCOSE [id number] 03:06:00 Test Item Value Reference Range Interpretation Comments POC-GLUCOSE METER 196 mg/dL 70-110 H TESTED AT [place] [address] ([facility]) (test code = [facility] 1538) [address] TROPONIN [id number] 03:00:00 Test Item Value Reference Range Interpretation Comments [facility]ONIN I ([facility] (test code = 0.02 ng/mL [...] acute neurological disease, and persistent tachyarrhythmia.BASIC METABOLIC [id number] 02:57:00 Test Item Value Reference Range Interpretation [...] NOT APPLICABLE FOR DIALYSIS PATIEN TS. POCT-GLUCOSE [id number] 01:21:00 Test Item Value Reference Range Interpretation Comments POC-GLUCOSE METER 195 mg/dL 70-110 H TESTED AT [facility] ([facility]) (test code = [place] 1538) [address] TROPONIN [id number] 00:47:00 Test Item Value Reference Range Interpretation [...] failure, acidosis, acute neurological disease, and persistent tachyarrhythmia.[id number] 00:44:00 Test Item Value Reference Range Interpretation Comments PHOSPHORUS (BEAKER) (test code = 1.4 mg/dL 2.3-4.7 LL 604) BLOOD GAS, [id number] 00:41:00 Test Item Value Reference Range Interpretation [...] code = 1819) 21.0 % BASIC METABOLIC [id number] 00:40:00 Test Item Value Reference Range Interpretation [...] S NOT APPLICABLE FOR DIALYSIS PATIEN TS. [id number] 00:40:00 Test Item Value Reference Range Interpretation Comments MAGNESIUM (BEAKER) (test code = 2.1 mg/dL 1.6-2.6 627) HEMOGLOBIN AND [id number] 00:21:00 Test Item Value Reference Range Interpretation Comments HEMOGLOBIN ([facility]) (test code = 12.3 GM/DL 13.7-17.5 L 410) HEMATOCRIT ([facility]) (test code = 34.9 % 40.1-51.0 L 411) POCT-GLUCOSE [id number] 00:09:00 Test Item Value Reference Range Interpretation Comments POC-GLUCOSE METER 234 mg/dL 70-110 H TESTED AT [facility] ([facility]) (test code = CAROLA Roberson [facility] 1538) [address] STREP PNEUMONIAE [id number] 00:07:00 Test Item Value Reference Range Interpretation Comments STREP PNEUMONIAE Presumptive negative Presumptive negative ANTIGEN ([facility]) for pneumococcal for pneumococcal (test code = 1615) pneumonia - see pneumonia - see comment commen Presumptive negative for pneumococcal pneumonia, suggesting no current or recent pneumococcal infection. Infection due to S. pneumoniae cannot be ruled out since the antigen present in the sample may be below the detection limit of the test. LEGIONELLA ANTIGEN, [id number] 00:07:00 Test Item Value Reference Range Interpretation Comments L. PNEUMOPHILA Negative - see Negative fo r L. SEROGP 1 UR AG comment pneumophila ([facility]) (test code serogrou p 1 antigen, = 1156) suggesting no r ecent or current infe ction with this serog roup. Legionellosis c annot be ruled out si nce other serogroup s and species may cau se disease. POCT-GLUCOSE [id number] 23:15:00 Test Item Value Reference Range Interpretation Comments POC-GLUCOSE METER 247 mg/dL 70-110 H TESTED AT [facility] (test code = CAROLA Roberson [facility] 1538) [address] BASIC METABOLIC [id number] 23:09:00 Test Item Value Reference Range Interpretation [...] APPLICABLE FOR DIALYSIS PATIEN TS. BLOOD GAS, [id number] 22:52:00 Test Item Value Reference Range Interpretation [...] (test code = 1819) 21.0 % POCT-GLUCOSE [id number] 22:25:00 Test Item Value Reference Range Interpretation Comments POC-GLUCOSE METER 270 mg/dL 70-110 H TESTED AT [facility] (BEAKER) (test [facility] = [facility] [address]38) [address] POCT-GLUCOSE [id number] 21:28:00 Test Item Value Reference Range Interpretation Comments POC-GLUCOSE METER 312 mg/dL 70-110 H TESTED AT [facility] (BEAKER) (test code = [facility] [place] 1538) [address] LACTIC ACID, [id number] 20:58:00 Test Item Value Reference Range Interpretation Comments LACTATE BLOOD ARTERIAL (2) 1.7 mmol/L 0.5-2.2 (BEAKER) (test code = 2874) BASIC METABOLIC [id number] 20:51:00 Test Item Value Reference Range Interpretation [...] NOT APPLICABLE FOR DIALYSIS PATIEN TS. POCT-GLUCOSE [id number] 20:37:00 Test Item Value Reference Range Interpretation Comments POC-GLUCOSE METER 334 mg/dL 70-110 H TESTED AT [facility] ([facility] (test code = [place] 1538) [address] RAD, CHEST, 1 VIEW, NON [id number] 20:13:00Post-intubationReason for exam:- >r/o pnaShould this be [...] Vora Verified Date/Time: 10/14/2018 20:13:51 Reading Location: [address] Reading Room POCT-GLUCOSE [id number] 19:39:00 Test Item Value Reference Range Interpretation Comments POC-GLUCOSE METER 432 mg/dL 70-110 HH TESTED AT [facility] ([facility]) (test code = [place] 1538) [address] HEMOGLOBIN [id number] 19:16:00 Test Item Value Reference Range Interpretation Comments HEMOGLOBIN A1C (BEAKER) (test code = 10.2 % 4.3-6.1 H 368) [id number] 18:52:00 Test Item Value Reference Range Interpretation Comments PROCALCITONIN (BEAKER) (test code 5.14 ng/mL <0.05 H = 3036) SEPSIS RISK (ng/mL)Low: 0.05-0.50Intermediate: 0.51-2.00High: >=2.01CBC W/PLT COUNT & AUTO [id number] 18:37:00 Test Item Value Reference Range Interpretation [...] (BEAKER) (test code = 2801) BASIC METABOLIC [id number] 18:29:00 Test Item Value Reference Range Interpretation [...] APPLICABLE FOR DIALYSIS PATIEN TS. HEPATIC FUNCTION [id number] 18:29:00 Test Item Value Reference Range Interpretation [...] = 23 U/L 6-55 347) LACTIC ACID, [id number] 18:24:00 Test Item Value Reference Range Interpretation Comments LACTATE BLOOD ARTERIAL (2) 3.0 mmol/L 0.5-2.2 H (BEAKER) (test code = 2874) BLOOD GAS, [id number] 17:52:00 Test Item Value Reference Range Interpretation [...] 21.0 % CBC W/PLT COUNT & AUTO [id number] 17:50:00 Test Item Value Reference Range Interpretation [...] 3438) Received comment: User comments: Slide comments:POCT-GLUCOSE [id number] 17:49:00 Test Item Value Reference Range Interpretation Comments POC-GLUCOSE METER > mg/dL 70-110 HH OUTSIDE ME ASURING (BEAKER) (test code RANGETES GUNNAR AT [facility] = 1538) PHAN [facility] [address] KETONE, [id number] 17:13:00 Test Item Value Reference Range Interpretation Comments KETONES, BLOOD (BEAKER) (test code 5.4 mmol/L <0.4 H = 1103) TSH/FREE T4 IF [id number] 17:10:00 Test Item Value Reference Range Interpretation Comments THYROID STIMULATING HORMONE 0.64 uIU/mL 0.35-4.94 (BEAKER) (test code = 772) BASIC METABOLIC [id number] 16:57:00 Test Item Value Reference Range Interpretation [...] NOT APPLICABLE FOR DIALYSIS PATIEN TS. TROPONIN [id number] 16:56:00 Test Item Value Reference Range Interpretation [...] failure, acidosis, acute neurological disease, and persistent tachyarrhythmia.[id number] 16:50:00 Test Item Value Reference Range Interpretation Comments MAGNESIUM (BEAKER) 2.4 mg/dL 1.6-2.6 Specimen slightly (test code = 627) hemolyzed [id number] 16:50:00 Test Item Value Reference Range Interpretation Comments PHOSPHORUS (BEAKER) 5.6 mg/dL 2.3-4.7 H Specimen slightly (test code = 604) hemolyzed [id number] 16:50:00 Test Item Value Reference Range Interpretation Comments AMYLASE (BEAKER) (test 47 U/L 25-125 Speci men slightly code = 349) hemolyzed [id number] 16:50:00 Test Item Value Reference Range Interpretation Comments LIPASE (BEAKER) (test code = 749) 199 U/L 8-78 H PROTHROMBIN [id number] 16:47:00 Test Item Value Reference Range Interpretation [...] INR is2.5-3.5 for patients wiht mechanical heart valves.[id number] 16:47:00 Test Item Value Reference Range Interpretation Comments PARTIAL THROMBOPLASTIN TIME 23.5 seconds 22.5-36.0 (BEAKER) (test code = 760) [id number] 16:47:00 Test Item Value Reference Range Interpretation Comments FIBRINOGEN LEVEL (BEAKER) (test 284 mg/dl 225-434 code = 658) LACTIC ACID, [id number] 16:44:00 Test Item Value Reference Range Interpretation Comments LACTATE BLOOD VENOUS 4.2 mmol/L 0.5-2.2 H Specime n slightly (2) (BEAKER) (test hemolyzed code = 0842) HEMOGLOBIN AND [id number] 16:34:00 Test Item Value Reference Range Interpretation Comments HEMOGLOBIN (BEAKER) (test code = 14.5 GM/DL 13.7-17.5 410) HEMATOCRIT (BEAKER) (test code = 42.9 % 40.1-51.0 411) POTASSIUM-STAT [id number] 16:21:00 Test Item Value Reference Range Interpretation Comments POTASSIUM (BEAKER) (test code = 7.0 meq/L 3.6-5.5 HH 379) GLUCOSE-STAT [id number] 16:21:00 Test Item Value Reference Range Interpretation Comments GLUCOSE RANDOM (BEAKER) (test code 650 mg/dL 70-110 HH = 652) BLOOD GAS, [id number] 16:21:00 Test Item Value Reference Range Interpretation [...] code = 1819) 21.0 % SODIUM NA-STAT [id number] 16:15:00 Test Item Value Reference Range Interpretation Comments SODIUM (BEAKER) (test code = 381) 142 meq/L 135-148 HGB/HCT (H&H) - STAT [id number] 16:15:00 Test Item Value Reference Range Interpretation Comments HEMOGLOBIN (BEAKER) (test code = 14.8 g/dL 13.0-16.8 410) HEMATOCRIT (BEAKER) (test code = 44.0 % 40.0-50.0 411) POCT-GLUCOSE [id number] 15:42:00 Test Item Value Reference Range Interpretation Comments POC-GLUCOSE METER > mg/dL 70-110 HH OUTSIDE ME ASURING (BEAKER) (test code RANGENot ified YVONNE MD/TESTED = 1538) AT [facility] [address] [place] [address]
[2021-07-07] MEDS ORDERED: PROMETHAZINE INJ 25 MG/ML AMP ONE (09:26)
[2021-07-07] MEDS ORDERED: NA CHLORIDE 0.9% 1,000 ML ONE ×2 (09:26→10:14)
[2021-07-07 09:33] LABS: Absolute Lymphocytes (CBC) 0.5 K/uL (0.7-4.9); Hematocrit 40.1 % (39.6-49.0); MPV 7.7 fL (7.6-11.3)
[2021-07-07 09:56] LABS: ALT/SGPT 29 U/L (12-78); AST/SGOT 13 U/L (15-37); Alkaline Phosphatase 77 U/L (45-117); BUN Blood Urea Nitrogen 19 mg/dL (7-18); Bicarbonate 20 mmol/L (21-32); Bilirubin Total 0.6 mg/dL (0.2-1.0); Glucose Level 276 mg/dL (74-106); Lipase 29 U/L (73-393); Potassium 3.9 mmol/L (3.5-5.1); Sodium Level 142 mmol/L (136-145)
[2021-07-07] MEDS ORDERED: METOCLOPRAMIDE 10 MG/2mL INJ ONE (10:31)
--- NOTE | 2021-07-07 10:52 | RAD REPORT ---
EXAM DESCRIPTION: CTAbdomen Pelvis W Contrast - 07/07/2021 10:42 am CLINICAL HISTORY: Abdominal pain. ABD PAIN COMPARISON: Abdomen Pelvis W Contrast dated 02/07/2020; CT ABD PELVIS W CONTRAST dated 03/13/2008 TECHNIQUE: Biphasic CT imaging of the abdomen and pelvis was performed with 100 ml non-ionic IV cont rast. All CT scans are performed using dose optimization technique as appropriate and may include automated exposure control or mA/KV adjustment according to patient size. FINDINGS: The lung bases are clear. Thickening of the distal esophagus is seen. The liver, spleen, pancreas, adrenal glands and kidneys are within normal limits. Punctate nonobstruc tive left renal calculus suspected. No bowel obstruction, free air, free fluid or abscess. The appendix is normal. No evidence of signi ficant lymphadenopathy. No suspicious bony findings. IMPRESSION: No acute intra-abdominal or pelvic finding. Mild thickening of the distal esophageal mucosa could indicate esophagitis or reflux.
--- NOTE | 2021-07-07 11:18 | EDPHYS ---
Physician Documentation [facility] Name: Enio Bradley Age: 31 yrs Sex: Male : 1990 Arrival Date: 07/07/2021 Time: 09:03 Bed 7 Private MD: ED Physician Arturo Tom HPI: 07/07 09:33 This 31 yrs old Male presents to ER via Ambulatory with complaints of Vomiting. jr8 09:33 The patient presents to the emergency department with nausea, vomiting, diarrhea. jr8 Onset: The symptoms/episode began/occurred acutely, 3 day(s) ago. Possible causes: unknown. The symptoms are aggravated by food , The symptoms are alleviated by nothing. Associated signs and symptoms: Pertinent positives: abdominal pain. Severity of symptoms: At their worst the symptoms were moderate in the emergency department the symptoms are unchanged. The patient has not experienced similar symptoms in the past. The patient has been recently seen by a physician:. This is a 31-year-old male patient with a history of insulin-dependent diabetes mellitus that presented to the emergency room with ongoing complaints of nausea vomiting diarrhea and abdominal discomfort. Was seen at [facility] system this past Monday and was discharged home with possible gastroparesis and told to follow-up. Patient has not been able to get into gastroenterology yet. Was seen here yesterday for similar symptoms. Labs were completed and was not in diabetic ketoacidosis at that time. Was sent home with close return precautions. Patient came back today with continuation of symptoms. Significant other stated that he is still unable to keep fluids or food down.. Historical: - Allergies: 09:09 No Known Drug Allergies; tw2 09:15 No Known Allergies; ag7 - Home Meds: 09:09 Novolog Flexpen subcutaneous [Active]; Tresiba FlexTouch U-100 subcutaneous [Active]; tw2 - PMHx: 09:09 ADD/ADHD; Diabetes - IDDM; tw2 - PSHx: 09:15 None; ag7 - Immunization history:: Client reports having NOT received the Covid vaccine. - Social history:: Smoking status: . ROS: 09:33 Eyes: Negative for injury, pain, redness, and discharge, ENT: Negative for injury, jr8 pain, and discharge, Neck: Negative for injury, pain, and swelling, Cardiovascular: Negative for chest pain, palpitations, and edema, Respiratory: Negative for shortness of breath, cough, wheezing, and pleuritic chest pain, Back: Negative for injury and pain, MS/Extremity: Negative for injury and deformity, Skin: Negative for injury, rash, and discoloration, Neuro: Negative for headache, weakness, numbness, tingling, and seizure. 09:33 Abdomen/GI: Positive for abdominal pain, nausea, vomiting, and diarrhea. Exam: 09:33 Respiratory: Lungs have equal breath sounds bilaterally, clear to auscultation and jr8 percussion. No rales, rhonchi or wheezes noted. No increased work of breathing, no retractions or nasal flaring. Back: No spinal tenderness. No costovertebral tenderness. Full range of motion. Skin: Warm, dry with normal turgor. Normal color with no rashes, no lesions, and no evidence of cellulitis. MS/ Extremity: Pulses equal, no cyanosis. Neurovascular intact. Full, normal range of motion. Neuro: Awake and alert, GCS 15, oriented to person, place, time, and situation. Cranial nerves II-XII grossly intact. Motor strength 5/5 in all extremities. Sensory grossly intact. 09:33 Constitutional: The patient appears alert, awake, obviously ill. 09:33 Cardiovascular: Rate: tachycardic, Rhythm: regular, Pulses: Pulses are 2+ in right radial artery and left radial artery. Heart sounds: normal, normal S1and S2, no S3 or S4, no murmur, no rub, no gallop. 09:42 Abdomen/GI: Inspection: abdomen appears normal, Bowel sounds: diminished, in all jr8 quadrants, Palpation: soft, in all quadrants, moderate abdominal tenderness, in the left upper quadrant and left lower quadrant, mass, is not appreciated, rebound tenderness, is not appreciated, voluntary guarding, is not appreciated, involuntary guarding, is not appreciated, no appreciated organomegaly, Indicators: McBurney's point is not tender, Bone's sign is negative, Rovsing's sign is negative, Liver: tenderness, is not appreciated. Vital Signs: 09:11 BP 155 / 86; Pulse 112; Resp 20; Temp 98.4; Pulse Ox 100% ; Weight 86.18 kg; Height 5 ag7 ft. 10 in. (177.80 cm); 10:20 BP 123 / 64; Pulse 98; Resp 17; Pulse Ox 100% on R/A; tw2 11:25 BP 114 / 70; Pulse 101; Resp 17; Pulse Ox 99% on R/A; tw2 12:36 BP 152 / 82; Pulse 109; Pulse Ox 100% ; ap3 13:18 BP 139 / 73; Pulse 103; Resp 17; Pulse Ox 100% on R/A; tw2 09:11 Body Mass Index 27.26 (86.18 kg, 177.80 cm) ag7 MDM: 09:09 Patient medically screened. jr8 11:15 Data reviewed: vital signs, nurses notes, lab test result(s), and as a result, I will jr8 admit patient. Data interpreted: Pulse oximetry: on room air is 100 %. Interpretation: normal. Counseling: I had a detailed discussion with the patient and/or guardian regarding: the historical points, exam findings, and any diagnostic results supporting the discharge/admit diagnosis, lab results, radiology results, the need for further work-up and treatment in the hospital. ED course: Patient volume contracted today when compared to labs yesterday. Has been given promethazine and Reglan with only mild improvement but continues to vomit. Otherwise hemodynamically stable but at this point this is his third emergency room visit and would benefit from admission and for gastroenterology to work him up for gastroparesis.. 07/07 09:20 Order name: CBC with Diff jr8 07/07 09:20 Order name: CMP; Complete Time: 10:05 07/07 09:20 Order name: Lipase; Complete Time: 10:07/07 09:20 Order name: Ketone, Serum; Complete Time: 10:05 07/07 09:21 Order name: CBC with Automated Diff EDMS 07/07 11:27 Order name: COVID-19 SARS RT PCR (Document "Date of Onset" if Symptomatic); Complete bd Time: 12:41 07/07 09:20 Order name: IV Saline Lock; Complete Time: 09:30 07/07 09:20 Order name: Labs collected and sent; Complete Time: 09:30 8 07/07 09:26 Order name: CT Abd/Pelvis - IV Contrast Only; Complete Time: 10:59 Administered Medications: 09:29 Drug: Promethazine 12.5 mg Route: IVP; Site: right forearm; ap3 11:35 Follow up: Response: No adverse reaction; No change in condition tw2 09:30 Drug: NS 0.9% 1000 ml Route: IV; Rate: 1 bolus; Site: right forearm; ap3 10:20 Follow up: Response: No adverse reaction; IV Status: Completed infusion; IV Intake: tw2 1000ml 10:13 Drug: NS 0.9% 1000 ml Route: IV; Rate: 1000 ml; Site: right forearm; tw2 11:20 Follow up: IV Status: Completed infusion; IV Intake: 1000ml tw2 10:30 Drug: Reglan (metoCLOPramide) 10 mg Route: IVP; Site: right forearm; tw2 13:31 Follow up: Response: No adverse reaction tw2 11:34 Drug: Zofran (Ondansetron) 8 mg Route: IVP; Site: right forearm; tw2 13:31 Follow up: Response: No adverse reaction; Nausea is decreased tw2 Disposition: 09:22 31-year-old male with past medical history of ADD, diabetes presents for nausea ms3 vomiting and abdominal pain. On exam patient is alert and oriented x4, in no apparent distress. Heart rate is tachycardic and regular. Lungs are clear to auscultation bilaterally. Abdomen is diffusely tender with bowel sounds present. Skin is without diaphoresis or rashes. Discussed case with ALEXANDRA Hobson, and agree with plan.. 15:49 Co-signature as Attending Physician, Arturo Tom DO Please see my note. ms3 Disposition Summary: 07/07/21 11:17 Hospitalization Ordered Hospitalization Status: Observation jr8 Provider: Prince Taylor [facility] Location: Telemetry/MedSur (observation) jr8 Condition: Stable jr8 Problem: new jr8 Symptoms: have improved jr8 Bed/Room Type: Standard [facility] Room Assignment: 211(07/07/21 13:10) bd Diagnosis - Dehydration jr8 - Intractable Vomiting jr8 - Gastroparesis jr8 Discharge Instructions: - Discharge Summary Sheet tw2 Forms: - Medication Reconciliation Form jr8 - SBAR form tw2 Signatures: Dispatcher [employer] EDMS Yadi Prabhakar Josh, PA PA jr8 Aspen Draper RN RN tw2 Petty Correa, RN RN ap3 Arturo Tom, DO EDWARDS ms3 Susi Lagos, RN RN ag7 Corrections: (The following items were deleted from the chart) 09:20 Mary evans. jrRai tw2 13:10 11:17 jrRai alvarez
--- NOTE | 2021-07-07 11:18 | ER ---
Nurse's Notes [facility] Name: Enio Bradley Age: 31 yrs Sex: Male : 1990 Arrival Date: 07/07/2021 Time: 09:03 Bed 7 Private MD: Diagnosis: Dehydration;Intractable Vomiting;Gastroparesis Presentation: 07/07 09:11 Chief complaint: Patient states: The patient significant other reports the patient cant ag7 keep food down since monday. Coronavirus screen: Client denies travel out of the [place] in the last 14 days. At this time, the client does not indicate any symptoms associated with coronavirus-19. Ebola Screen: Patient denies travel to an Ebola-affected area in the 21 days before illness onset. Initial Sepsis Screen: Does the patient meet any 2 criteria? No. Patient's initial sepsis screen is negative. Does the patient have a suspected source of infection? No. Patient's initial sepsis screen is negative. Risk Assessment: Do you want to hurt yourself or someone else? Patient reports no desire to harm self or others. Onset of symptoms was July 04, 2021. 09:11 Method Of Arrival: Ambulatory ag7 09:11 Acuity: JAMAL 3 ag7 Historical: - Allergies: 09:09 No Known Drug Allergies; tw2 09:15 No Known Allergies; ag7 - Home Meds: 09:09 Novolog Flexpen subcutaneous [Active]; Tresiba FlexTouch U-100 subcutaneous [Active]; tw2 - PMHx: 09:09 ADD/ADHD; Diabetes - IDDM; tw2 - PSHx: 09:15 None; ag7 - Immunization history:: Client reports having NOT received the Covid vaccine. - Social history:: Smoking status: . Screenin:09 Abuse screen: Denies threats or abuse. Nutritional screening: No deficits noted. tw2 Tuberculosis screening: No symptoms or risk factors identified. Fall Risk None identified. Assessment: 10:20 Reassessment: Patient and/or family updated on plan of care and expected duration. Pain tw2 level reassessed. Patient is alert, oriented x 3, equal unlabored respirations, skin warm/dry/pink. nausea decreased pt still belching and try heaving at times. Patient states symptoms have not improved. 10:28 Reassessment: call from Tush[place] reporting pt actively vomiting. medicated per tw2 VO. 10:49 Reassessment: pt back from imaging, Tushar Ferraro reports pt vomited approx 100 ml in tw2 emesis bag after scan. 11:26 Reassessment: Patient and/or family updated on plan of care and expected duration. Pain tw2 level reassessed. Patient is alert, oriented x 3, equal unlabored respirations, skin warm/dry/pink. Patient states symptoms have not improved. 13:21 Reassessment: Patient appears in no apparent distress at this time. Patient and/or tw2 family updated on plan of care and expected duration. Pain level reassessed. Patient is alert, oriented x 3, equal unlabored respirations, skin warm/dry/pink. pt resting quietly at this time. Vital Signs: 09:11 BP 155 / 86; Pulse 112; Resp 20; Temp 98.4; Pulse Ox 100% ; Weight 86.18 kg; Height 5 ag7 ft. 10 in. (177.80 cm); 10:20 BP 123 / 64; Pulse 98; Resp 17; Pulse Ox 100% on R/A; tw2 11:25 BP 114 / 70; Pulse 101; Resp 17; Pulse Ox 99% on R/A; tw2 12:36 BP 152 / 82; Pulse 109; Pulse Ox 100% ; ap3 13:18 BP 139 / 73; Pulse 103; Resp 17; Pulse Ox 100% on R/A; tw2 09:11 Body Mass Index 27.26 (86.18 kg, 177.80 cm) ag7 ED Course: 09:03 Patient arrived in ED. ds1 09:04 Ar Rivera PA is PHCP. jr8 09:04 Arturo Tom DO is Attending Physician. jr8 09:08 Aspen Draper, YVONNE is Primary Nurse. tw2 09:09 Arm band placed on. tw2 09:09 Bed in low position. Call light in reach. Pulse ox on. NIBP on. tw2 09:15 Triage completed. ag7 09:23 Inserted saline lock: 22 gauge in right forearm, using aseptic technique. Blood tw2 collected. 09:26 Missed attempt(s): 20 gauge in right antecubital area. Bleeding controlled, band aid tw2 applied, catheter tip intact. 09:34 CBC with Diff Sent. kj1 10:42 CT Abd/Pelvis - IV Contrast Only In Process Unspecified. EDMS 11:09 Nurse Practitioner and/or Physician Filenet Developer to see patient. ap3 11:16 Prince Vazquez MD is Hospitalizing Provider. jr8 13:17 Awaiting: unsuccessful attempt to call report at this time. tw2 13:30 No provider procedures requiring assistance completed. Patient admitted, IV remains in tw2 place. Administered Medications: 09:29 Drug: Promethazine 12.5 mg Route: IVP; Site: right forearm; ap3 11:35 Follow up: Response: No adverse reaction; No change in condition tw2 09:30 Drug: NS 0.9% 1000 ml Route: IV; Rate: 1 bolus; Site: right forearm; ap3 10:20 Follow up: Response: No adverse reaction; IV Status: Completed infusion; IV Intake: tw2 1000ml 10:13 Drug: NS 0.9% 1000 ml Route: IV; Rate: 1000 ml; Site: right forearm; tw2 11:20 Follow up: IV Status: Completed infusion; IV Intake: 1000ml tw2 10:30 Drug: Reglan (metoCLOPramide) 10 mg Route: IVP; Site: right forearm; tw2 13:31 Follow up: Response: No adverse reaction tw2 11:34 Drug: Zofran (Ondansetron) 8 mg Route: IVP; Site: right forearm; tw2 13:31 Follow up: Response: No adverse reaction; Nausea is decreased tw2 Intake: 10:20 IV: 1000ml; Total: 1000ml. tw2 11:20 IV: 1000ml; Total: 2000ml. tw2 Outcome: 11:17 Decision to Hospitalize by Provider. jr8 13:30 Admitted to Med/surg accompanied by tech, via stretcher, room 211, with chart, Report tw2 called to YVONNE Carias 13:30 Condition: stable 13:30 Instructed on the need for admit. 13:31 Patient left the ED. tw2 Signatures: Dispatcher [employer] EDPA Madelyn Cui dsAr Hughes PA PA jr8 Aspen Draper RN RN tw2 Petty Correa RN RN ap3 Lexii Farr kj1 Susi Lagos RN RN ag7
[2021-07-07] MEDS ORDERED: ONDANSETRON 4 MG/2 ML VIAL ONE (11:33)
--- NOTE | 2021-07-07 11:54 | P.HP ---
Certification for Inpatient Patient admitted to: Observation With expected LOS: <2 Midnights Practitioner: I am a practitioner with admitting privileges, knowledge of patient current condition, hospital course, and medical plan of care. Services: Services provided to patient in accordance with Admission requirements found in Title 42 Section 412.3 of the Code of Federal Regulations Patient History Date of Service: 07/07/21 Reason for admission: Nausea and vomiting History of Present Illness: Patient is a 31-year-old male with history of type 1 diabetes mellitus. He presents with intractable nausea and vomiting ongoing for the past several days. This is his third visit in the ER during this time. He was initially seen at [facility] for similar presentation 4 days ago. He presented again here yesterday and then today due to unrelieved symptoms. He is reporting nonbloody emesis and nausea. He has mild abdominal pain. His CT abdomen and pelvis showed mild esophagitis but no other intra-abdominal pathology. Allergies No Known Drug Allergies Allergy (Verified 03/08/20 12:10) Unknown No Known Allergies Allergy (Uncoded 03/08/20 12:10) Unknown Home Medications: Insulin Aspart [Novolog Flexpen] See Protocol SQ ACHS 03/08/20 Insulin Glargine Human [Lantus*] 35 units SQ BEDTIME 03/08/20 Insulin Glargine Human [Lantus*] 35 units SQ DAILY WITH BREAKFAST 03/08/20 Erythromycin Base [Erythromycin] 250 mg PO TID #42 tablet 03/12/20 Metoclopramide [Reglan] 5 mg PO TID PRN #20 tab 03/12/20 Pantoprazole [Protonix Tab] 40 mg PO DAILY #30 tab 03/12/20 clonazePAM [Klonopin*] 0.5 mg PO TID #0 tab 03/12/20 - Past Medical/Surgical History Diabetic: Yes -: Diabetes mellitus type 1 -: ADD -: adhd -: anxiety -: gastroparesis -: tubes in ears Psychosocial/ Personal History: Single, 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 Patient is from the area. 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 - Family History Mother -: Cancer - Social History Alcohol use: Yes CD- Drugs: No Caffeine use: Yes Physical Examination - Physical Exam General: Moderate distress HEENT: Atraumatic, Normocephalic Respiratory: Clear to auscultation bilaterally, Normal air movement Cardiovascular: Normal pulses, Regular rate/rhythm, Normal S1 S2 Musculoskeletal: No clubbing, No swelling, No contractures, No erythema Neurological: Normal speech, Normal affect - Studies Laboratory Data (last 24 hrs) 07/07/21 09:23: Sodium 142, Potassium 3.9, BUN 19 H, Creatinine 1.56 H, Glucose 276 H, Total Bilirubin 0.6, AST 13 L, ALT 29, Alkaline Phosphatase 77, Lipase 29 L 07/07/21 09:23: WBC 13.70 H D, Hgb 13.9, Hct 40.1, Plt Count 254 Assessment and Plan - Problems (Diagnosis) (1) Acute renal failure Current Visit: No Status: Acute (2) Cyclical vomiting Current Visit: No Status: Acute (3) DKA, type 1 Onset Date: 05/31/18 Current Visit: No Status: Acute Qualifiers: Diabetes mellitus complication detail: without coma Qualified Code(s): E10.10 - Type 1 diabetes mellitus with ketoacidosis without coma (4) Dehydration Onset Date: 04/26/16 Current Visit: No Status: Acute (5) Gastroparesis Current Visit: No Status: Acute (6) Nausea and vomiting Onset Date: 04/26/16 Current Visit: No Status: Acute - Advance Directives Does patient have a Living Will: No Does patient have a Durable POA for Healthcare: No Physician Review Additional Text: Assessment Patient is a 31-year-old male with uncontrolled type 1 diabetes mellitus who returns with intractable nausea and vomiting. CT A/P suggestive of distal esophagitis Possible gastroparesis Uncontrolled type 1 diabetes Intractable nausea and vomiting MELANIE Plan: Admit under observation telemetry Start patient on lactated Ringer infusion Repeat BMP tomorrow Started on Zofran/PPI/IV Reglan Lovenox for DVT prophylaxis Patient can be discharged tomorrow if he feels good
[2021-07-07] MEDS ORDERED: SODIUM CHLORIDE 0.9% 10ML INJ IV PRN (12:58)
[2021-07-07] MEDS ORDERED: GLUCAGON 1 MG/VIAL IM PRN (13:06)
[2021-07-07] MEDS ORDERED: D50W 25 GM/50 ML SYRINGE IV PRN (13:06)
[2021-07-07] MEDS ORDERED: D10W 125 ML IV PRN (13:09)
[2021-07-07 13:39] LABS: Blood Morphology Comment NOT SEEN (NOT SEEN); Platelet Estimate ADEQ; White Blood Cell Scan OK (OK)
[2021-07-07] MEDS ORDERED: ERYTHROMYCIN BASE 250 MG PO SCH (14:00)
[2021-07-07] MEDS ORDERED: clonazePAM 0.5 MG TAB PO SCH (14:00)
[2021-07-07 14:07] VITALS: BMI 27.2
[2021-07-07] MEDS: Ringers Lactate 1,000 ML IV SCH ×2 (14:19→20:58)
[2021-07-07] MEDS: PANTOPRAZOLE 40 MG INJ IVP SCH (14:20)
[2021-07-07] MEDS: METOCLOPRAMIDE 10 MG/2mL INJ IV PRN ×2 (14:49→20:42)
[2021-07-07] MEDS: INSULIN -REGULAR HUMAN 50 UNIT/0.5 ML ML SQ SCH ×2 (16:23→20:42)
[2021-07-07] MEDS: ENOXAPARIN 40 MG/0.4 ML SQ SCH (16:23)
[2021-07-07] MEDS ORDERED: LIDOCAINE VISCOUS 2% SOLN 15 ML UDC PO PRN ×2 (18:00)
[2021-07-07] MEDS ORDERED: MAGNES/ALUMIN/SIMET 30ML UCUP PO PRN ×2 (18:00)
[2021-07-07] MEDS: FAMOTIDINE 20 MG/2 ML VIAL IV ONE ×2 (22:09→22:40)
[2021-07-08] MEDS ORDERED: LIDOCAINE VISCOUS 2% SOLN 15 ML UDC PO ONE (03:32)
[2021-07-08] MEDS ORDERED: MAGNES/ALUMIN/SIMET 30ML UCUP PO ONE (03:32)
[2021-07-08] MEDS: ONDANSETRON 4 MG/2 ML VIAL IV PRN ×3 (03:46→19:42)
[2021-07-08] MEDS: Ringers Lactate 1,000 ML IV SCH ×3 (05:57→19:39)
[2021-07-08 06:08] LABS: Absolute Lymphocytes (CBC) 0.5 K/uL (0.7-4.9); Hematocrit 37.8 % (39.6-49.0); Lymphocytes % 5.6 % (15.3-44.8); MPV 7.9 fL (7.6-11.3); RBC Red Blood Cell Count 4.32 M/uL (4.33-5.43)
[2021-07-08] MEDS: INSULIN -REGULAR HUMAN 50 UNIT/0.5 ML ML SQ SCH (06:13)
[2021-07-08 06:28] LABS: Potassium 4.2 mmol/L (3.5-5.1)
[2021-07-08] MEDS ORDERED: D50W 25 GM/50 ML SYRINGE IV PRN (06:41)
[2021-07-08] MEDS ORDERED: GLUCAGON 1 MG/VIAL IM PRN (06:41)
[2021-07-08 07:29] LABS: Platelet Estimate ADEQ
[2021-07-08 07:30] LABS: Blood Morphology Comment NOT SEEN (NOT SEEN)
[2021-07-08] MEDS: PANTOPRAZOLE 40 MG INJ IVP SCH ×2 (08:41→22:02)
[2021-07-08] MEDS: METOCLOPRAMIDE 10 MG/2mL INJ IV PRN ×3 (08:41→22:11)
[2021-07-08] MEDS ORDERED: NA CHLORIDE 0.9% 1,000 ML IV ONE (08:50)
--- NOTE | 2021-07-08 08:50 | P.PN ---
Subjective Date of Service: 07/08/21 Chief Complaint: Nausea and vomiting Subjective: Worsening (Unrelieved sx. Went into DKA) Physical Examination - Vital Signs Temperature: 98.1 F Blood Pressure: 127/62 Pulse: 102 Respirations: 18 Pulse Ox (%): 98 - Physical Exam General: Mild distress HEENT: Atraumatic, Normocephalic Respiratory: Clear to auscultation bilaterally, Normal air movement Cardiovascular: Regular rate/rhythm, Normal S1 S2 Gastrointestinal: Soft and benign, Non-distended, Tenderness Neurological: Normal speech, Normal affect - Studies Laboratory Data (last 24 hrs) 07/07/21 09:23: Sodium 142, Potassium 3.9, BUN 19 H, Creatinine 1.56 H, Glucose 276 H, Total Bilirubin 0.6, AST 13 L, ALT 29, Alkaline Phosphatase 77, Lipase 29 L 07/07/21 09:23: WBC 13.70 H D, Hgb 13.9, Hct 40.1, Plt Count 254 Assessment And Plan - Current Problems (Diagnosis) (1) Acute renal failure Current Visit: No Status: Acute (2) Cyclical vomiting Current Visit: No Status: Acute (3) DKA, type 1 Onset Date: 05/31/18 Current Visit: No Status: Acute Qualifiers: Diabetes mellitus complication detail: without coma Qualified Code(s): E10.10 - Type 1 diabetes mellitus with ketoacidosis without coma (4) Dehydration Onset Date: 04/26/16 Current Visit: No Status: Acute (5) Gastroparesis Current Visit: No Status: Acute (6) Nausea and vomiting Onset Date: 04/26/16 Current Visit: No Status: Acute Physician Review Additional Text: Assessment Patient is a 31-year-old male with uncontrolled type 1 diabetes mellitus who returns with intractable nausea and vomiting. CT A/P suggestive of distal esophagitis Possible gastroparesis Uncontrolled type 1 diabetes Intractable nausea and vomiting MELANIE Plan: Transfer to the unit for DKA Start DKA protocol Will reassess access Continue Zofran/PPI/IV Reglan Lovenox for DVT prophylaxis Change to inpatient status
[2021-07-08 09:51] LABS: Potassium 4.3 mmol/L (3.5-5.1)
[2021-07-08] MEDS: INSULIN -REGULAR HUMAN 100 UNIT in NA CHLORIDE 0.9% 100 ML IV SCH (10:15)
[2021-07-08] MEDS: NACHLORIDE 0.45% 1,000 ML IV SCH ×4 (10:15→19:39)
[2021-07-08] MEDS ORDERED: INSULIN -REGULAR HUMAN 50 UNIT/0.5 ML ML SQ SCH (12:00)
[2021-07-08] MEDS: D5 0.45 NS 1,000 ML IV SCH ×2 (13:09→17:16)
[2021-07-08] MEDS ORDERED: PROMETHAZINE INJ 25 MG/ML AMP IV ONE (13:27)
[2021-07-08 13:54] VITALS: O2SAT 99
[2021-07-08 14:13] LABS: Potassium 3.2 mmol/L (3.5-5.1)
[2021-07-08] MEDS: KCL 20 MEQ/100 mL IVPB 20 MEQ/100 ML BAG IV SCH ×2 (15:32→17:15)
[2021-07-08] MEDS: ENOXAPARIN 40 MG/0.4 ML SQ SCH (17:15)
[2021-07-08] MEDS: PROMETHAZINE INJ 25 MG/ML AMP IV PRN (18:13)
[2021-07-08 18:58] LABS: Potassium 3.9 mmol/L (3.5-5.1)
[2021-07-08 23:38] LABS: Potassium 3.8 mmol/L (3.5-5.1)
[2021-07-09] MEDS: NACHLORIDE 0.45% 1,000 ML IV SCH ×3 (01:00→13:00)
[2021-07-09] MEDS ORDERED: KCL 20 MEQ/100 mL IVPB 20 MEQ/100 ML BAG IV SCH ×2 (01:00→06:00)
[2021-07-09] MEDS: D5 0.45 NS 1,000 ML IV SCH ×2 (02:30→11:40)
[2021-07-09] MEDS: INSULIN -REGULAR HUMAN 100 UNIT in NA CHLORIDE 0.9% 100 ML IV SCH (02:34)
[2021-07-09 05:04] LABS: Absolute Lymphocytes (CBC) 0.9 K/uL (0.7-4.9); Hematocrit 36.3 % (39.6-49.0); Lymphocytes % 10.2 % (15.3-44.8); MPV 7.5 fL (7.6-11.3)
[2021-07-09 05:15] LABS: Potassium 3.5 mmol/L (3.5-5.1)
[2021-07-09] MEDS: ONDANSETRON 4 MG/2 ML VIAL IV PRN ×3 (05:48→19:49)
[2021-07-09] MEDS ORDERED: GLUCAGON 1 MG/VIAL IM PRN (06:36)
[2021-07-09] MEDS ORDERED: D50W 25 GM/50 ML SYRINGE IV PRN (06:36)
[2021-07-09] MEDS: PANTOPRAZOLE 40 MG INJ IVP SCH ×2 (08:03→20:35)
[2021-07-09] MEDS: PROMETHAZINE INJ 25 MG/ML AMP IV PRN ×3 (08:04→20:35)
[2021-07-09] MEDS: INSULIN -REGULAR HUMAN 50 UNIT/0.5 ML ML SQ SCH ×4 (08:04→21:00)
[2021-07-09] MEDS ORDERED: PANTOPRAZOLE 40 MG INJ IVP SCH (09:00)
[2021-07-09] MEDS: INSULIN GLARGINE 100 UNIT/ML SQ SCH ×2 (09:19→20:35)
[2021-07-09] MEDS: METOCLOPRAMIDE 10 MG/2mL INJ IV PRN ×2 (09:29→17:21)
--- NOTE | 2021-07-09 09:35 | P.PN ---
Subjective Date of Service: 07/09/21 Chief Complaint: Nausea and vomiting Subjective: Improving (DKA resolved) Physical Examination - Vital Signs Temperature: 98.7 F Blood Pressure: 123/58 Pulse: 93 Respirations: 19 Pulse Ox (%): 98 - Physical Exam General: Cooperative, Other (Fatigued) HEENT: Atraumatic, Normocephalic Neck: Supple Respiratory: Clear to auscultation bilaterally, Normal air movement Cardiovascular: Regular rate/rhythm, Normal S1 S2 Gastrointestinal: Soft and benign, Non-distended Musculoskeletal: No clubbing, No swelling, No contractures Neurological: Normal speech, Normal affect Assessment And Plan - Current Problems (Diagnosis) (1) Acute renal failure Current Visit: No Status: Acute (2) Cyclical vomiting Current Visit: No Status: Acute (3) DKA, type 1 Onset Date: 05/31/18 Current Visit: No Status: Acute Qualifiers: Diabetes mellitus complication detail: without coma Qualified Code(s): E10.10 - Type 1 diabetes mellitus with ketoacidosis without coma (4) Dehydration Onset Date: 04/26/16 Current Visit: No Status: Acute (5) Gastroparesis Current Visit: No Status: Acute (6) Nausea and vomiting Onset Date: 04/26/16 Current Visit: No Status: Acute Physician Review Additional Text: Assessment Patient is a 31-year-old male with uncontrolled type 1 diabetes mellitus who returns with intractable nausea and vomiting. CT A/P suggestive of distal esophagitis. He went into DKA on 07/08 DKA Possible gastroparesis Uncontrolled type 1 diabetes Intractable nausea and vomiting MELANIE Plan: DKA resolved Transitioned to Lantus and insulin sliding Resume home Continue PPI q 12 hours Continue Phernergan and IV Reglan Patient can be downgraded if stable Lovenox for DVT prophylaxis
[2021-07-09] MEDS: Ringers Lactate 1,000 ML IV SCH ×3 (12:58→23:29)
[2021-07-09 13:30] LABS: Potassium 3.3 mmol/L (3.5-5.1)
[2021-07-09] MEDS ORDERED: Ringers Lactate 1,000 ML IV ONE (15:51)
[2021-07-09] MEDS: ENOXAPARIN 40 MG/0.4 ML SQ SCH (17:32)
[2021-07-10] MEDS: ACETAMINOPHEN 325 MG TABLET PO PRN ×2 (00:44→20:25)
[2021-07-10] MEDS: METOCLOPRAMIDE 10 MG/2mL INJ IV PRN ×2 (00:44→20:25)
[2021-07-10 03:51] LABS: Absolute Lymphocytes (CBC) 1.9 K/uL (0.7-4.9); Hematocrit 40.3 % (39.6-49.0); Lymphocytes % 19.7 % (15.3-44.8); MPV 7.2 fL (7.6-11.3); RBC Red Blood Cell Count 4.73 M/uL (4.33-5.43)
[2021-07-10] MEDS: PROMETHAZINE INJ 25 MG/ML AMP IV PRN ×4 (03:53→22:48)
[2021-07-10 04:08] LABS: Potassium 3.1 mmol/L (3.5-5.1)
[2021-07-10] MEDS: ONDANSETRON 4 MG/2 ML VIAL IV PRN (05:36)
[2021-07-10] MEDS: Ringers Lactate 1,000 ML IV SCH ×3 (05:36→20:26)
[2021-07-10 08:05] LABS: Urine Amorphous Sediment 2+ /HPF (NONE SEEN); Urine Bacteria 20-50 /HPF (NONE SEEN)
[2021-07-10] MEDS: KCL 20 MEQ/100 mL IVPB 20 MEQ/100 ML BAG IV SCH ×4 (08:14→22:47)
[2021-07-10] MEDS: INSULIN -REGULAR HUMAN 50 UNIT/0.5 ML ML SQ SCH ×4 (08:14→20:26)
[2021-07-10] MEDS: INSULIN GLARGINE 100 UNIT/ML SQ SCH ×2 (08:14→20:26)
[2021-07-10] MEDS: PANTOPRAZOLE 40 MG INJ IVP SCH ×2 (08:21→20:25)
--- NOTE | 2021-07-10 08:48 | RAD REPORT ---
EXAM DESCRIPTION: Lucio Single View07/10/2021 6:43 am CLINICAL HISTORY: Fever COMPARISON: July 06, 2021 FINDINGS: The lungs appear clear of acute infiltrate. The heart is normal size IMPRESSION: No acute abnormalities displayed
--- NOTE | 2021-07-10 10:57 | P.PN ---
Subjective Date of Service: 07/10/21 Chief Complaint: Nausea and vomiting Subjective: No new changes (Patient continues to have N/V. He hasn't been to eat much for the past 3 days. Spiked a fever of 101 degrees. WBC/CXR unremarkable.) Physical Examination - Vital Signs Temperature: 99.2 F Blood Pressure: 169/65 Pulse: 93 Respirations: 18 Pulse Ox (%): 95 - Physical Exam General: Mild distress HEENT: Atraumatic, Normocephalic Respiratory: Clear to auscultation bilaterally, Normal air movement Cardiovascular: Regular rate/rhythm, Normal S1 S2 Gastrointestinal: Normal bowel sounds, Soft and benign, Non-distended, No tenderness Musculoskeletal: No clubbing, No swelling, No contractures Neurological: Normal speech, Normal affect Assessment And Plan - Current Problems (Diagnosis) (1) Acute renal failure Current Visit: No Status: Acute (2) Cyclical vomiting Current Visit: No Status: Acute (3) DKA, type 1 Onset Date: 05/31/18 Current Visit: No Status: Acute Qualifiers: Diabetes mellitus complication detail: without coma Qualified Code(s): E10.10 - Type 1 diabetes mellitus with ketoacidosis without coma (4) Dehydration Onset Date: 04/26/16 Current Visit: No Status: Acute (5) Gastroparesis Current Visit: No Status: Acute (6) Nausea and vomiting Onset Date: 04/26/16 Current Visit: No Status: Acute Physician Review Additional Text: Assessment Patient is a 31-year-old male with uncontrolled type 1 diabetes mellitus who returns with intractable nausea and vomiting. CT A/P suggestive of distal esophagitis. He went into DKA, which was treated in the unit. Sx persit even after resolution of DKA. Spiked a fever of 101 degrees overnight. DKA Type I DM Possible gastroparesis Uncontrolled type 1 diabetes Intractable nausea and vomiting MELANIE Plan: Follow up blood cx Uncontrolled N/V even after DKA resolved IV erythromycin is not formulary. Will continue with phenergan and reglan IV Continue Pantoprazole q 12 hours EGD Monday with Dr. Hicks if sx persist Continue long-acting insulin Lovenox for DVT prophylaxis
[2021-07-10] MEDS: ENOXAPARIN 40 MG/0.4 ML SQ SCH (16:55)
[2021-07-11] MEDS: KCL 20 MEQ/100 mL IVPB 20 MEQ/100 ML BAG IV SCH (00:23)
[2021-07-11] MEDS: Ringers Lactate 1,000 ML IV SCH ×3 (04:13→21:20)
[2021-07-11 04:31] LABS: Magnesium 1.8 mg/dL (1.8-2.4); Potassium 3.8 mmol/L (3.5-5.1)
[2021-07-11] MEDS: INSULIN GLARGINE 100 UNIT/ML SQ SCH ×2 (08:33→21:00)
[2021-07-11] MEDS: INSULIN -REGULAR HUMAN 50 UNIT/0.5 ML ML SQ SCH ×4 (08:33→21:00)
[2021-07-11] MEDS: PANTOPRAZOLE 40 MG INJ IVP SCH ×2 (08:34→21:00)
[2021-07-11] MEDS: METOCLOPRAMIDE 10 MG/2mL INJ IV PRN (08:36)
[2021-07-11] MEDS ORDERED: KCL 20 MEQ/100 mL IVPB 20 MEQ/100 ML BAG IV SCH (09:00)
--- NOTE | 2021-07-11 10:35 | P.PN ---
Subjective Date of Service: 07/11/21 Chief Complaint: Nausea and vomiting Subjective: Improving (Patient feels he can tolerate a diet today) Physical Examination - Vital Signs Temperature: 98.2 F Blood Pressure: 181/99 Pulse: 102 Respirations: 16 Pulse Ox (%): 98 - Physical Exam General: Other (More alert and awake) HEENT: Atraumatic, Normocephalic Respiratory: Clear to auscultation bilaterally, Normal air movement Musculoskeletal: No clubbing, No swelling, No contractures Integumentary: Other (Multiple tattoos) Neurological: Normal speech, Normal affect Assessment And Plan - Current Problems (Diagnosis) (1) Acute renal failure Current Visit: No Status: Acute (2) Cyclical vomiting Current Visit: No Status: Acute (3) DKA, type 1 Onset Date: 05/31/18 Current Visit: No Status: Acute Qualifiers: Diabetes mellitus complication detail: without coma Qualified Code(s): E10.10 - Type 1 diabetes mellitus with ketoacidosis without coma (4) Dehydration Onset Date: 04/26/16 Current Visit: No Status: Acute (5) Gastroparesis Current Visit: No Status: Acute (6) Nausea and vomiting Onset Date: 04/26/16 Current Visit: No Status: Acute Physician Review Additional Text: Assessment Patient is a 31-year-old male with uncontrolled type 1 diabetes mellitus who returns with intractable nausea and vomiting. CT A/P suggestive of distal esophagitis. He went into DKA, which was treated in the unit. Sx persit even after resolution of DKA. Spiked a fever of 101 degrees. Urine cx + for coag negative staph. DKA Type I DM Possible gastroparesis Uncontrolled type 1 diabetes Intractable nausea and vomiting MELANIE Plan: Start ceftriaxone He is doing better today and feels he can tolerate a diet If he tolerates diet, he can be discharged Continue with phenergan and reglan IV Continue Pantoprazole q 12 hours EGD Monday with Dr. Hicks if sx persist Continue long-acting insulin Lovenox for DVT prophylaxis
[2021-07-11] MEDS ORDERED: CEFTRIAXONE 1,000 MG in NA CHLORIDE 0.9% 50 ML IVPB SCH (12:00)
[2021-07-11] MEDS ORDERED: MAGNESIUM SULFATE 1 gm IVPB 1 GM/100 ML BAG IV ONE ×2 (13:00→16:44)
[2021-07-11] MEDS: ENOXAPARIN 40 MG/0.4 ML SQ SCH (17:22)
[2021-07-12] MEDS: Ringers Lactate 1,000 ML IV SCH (04:00)
[2021-07-12 08:43] VITALS: BP 153/92; TEMP 97.8
== END 2021-07-12 11:35 | disposition home or self-care (01) | DRG 74 ==
LOC: ER 09:02 → ERHOLD 11:42 → 2ND 13:24 → 3RD-ICU 07-08 09:30 → 4TH 07-09 14:30
PROVIDERS: ADMIT Internal Medicine; ATTEND Hospitalist
DX: E10.43 Type 1 diabetes mellitus with diabetic autonomic (poly)neuropathy (principal); N17.9 Acute kidney failure, unspecified; E10.10 Type 1 diabetes mellitus with ketoacidosis without coma; K31.84 Gastroparesis; E86.0 Dehydration; K20.90 Esophagitis, unspecified without bleeding; Z79.4 Long term (current) use of insulin; Z79.899 Other long term (current) drug therapy; Z20.822 Contact with and (suspected) exposure to COVID-19
CPT/HCPCS: 36415; 71045; 74177; 80048; 80053; 81015; 82010; 82947; 83036; 83605; 83690; 83735; 84132; 85025; 87040; 87077; 87086; 87088; 87186; 87804; 96361; 96374; 96375; 99285; C9113; J1650; J2405; J2550; J2765; J3475; J3480; J7030; J7120; J7799; Q9967; U0003

== ENCOUNTER 2022-02-08 21:24 | Inpatient (IN) | payer SELFPAY ==
--- OUTSIDE RECORDS SUMMARY | 2022-02-08 21:30 | XMS REPORT | Continuity of Care Document ---
:1990 Author Organization [facility] t Address [address] [place] [address] Care Team Providers Name Role Phone [facility], [facility] Primary Care Physician CORAL OREILLY Attending Clinician Unavailable Helder_T Attending Clinician Unavailable Doctor Unassigned, [place] Attending Clinician Unavailable Tabitha Rose MD Attending Clinician TABITHA ROSE Attending Clinician Unavailable WALDO WATKINS Attending Clinician Unavailable Waldo Watkins DO Attending Clinician Nurse, [facility] Attending Clinician Unavailable Tameka Cerda Attending Clinician TAMEKA NEWELL Attending Clinician Unavailable OLIVIA MUHAMMAD Attending Clinician Unavailable Ziggy Seo MD Attending Clinician Olivia Muhammad DO Attending Clinician BETH GOMEZ Attending Clinician Unavailable BETH GOMEZ Attending Clinician Unavailable ANGELA JACKMAN Attending Clinician Unavailable Coral Oreilly MD Attending Clinician [phone] Ted Yanez DO Attending Clinician Angela Burt Attending Clinician Marialuisa Castaneda RN Attending Clinician Unavailable Olivia Owens RN Attending Clinician Unavailable SUSHMA DAWSON Attending Clinician Unavailable Nicola Romero Attending Clinician CAITLIN SHARMA Attending Clinician Unavailable Caitlin Sharma MD Attending Clinician NICOLA HARRIS Attending Clinician Unavailable Pob, [facility] Attending Clinician Unavailable Meggan Ray MD Attending Clinician KYLAH MARTINEZ Attending Clinician Unavailable Porsha Almonte Attending Clinician KENDALL BOWEN Attending Clinician Unavailable ISA CARR Attending Clinician Unavailable ISA CARR Attending Clinician Unavailable CORAL OREILLY Admitting Clinician Unavailable Yvonne Admitting Clinician Unavailable WALDO WATKINS Admitting Clinician Unavailable Coral Oreilly MD Admitting Clinician KYLAH MARTINEZ Admitting Clinician Unavailable WESTON LOGAN Admitting Clinician Unavailable KARLEE FOX Admitting Clinician Unavailable Payers Payer Name Policy Type Policy Number Effective Date Expiration Date S ource Problems Condition Condition Condition Status Onset Resolution Last Treating Co mments Source Name Details Category Date Date Treatment Clinician Date Type 1 Type 1 Problem Active [facility] diabetes Diabetes 8-17 Family mellitus Mellitus 00:00: Practi c 00 e Penile Penile Problem Active [facility] warts Warts 6-30 Family 00:00: Practic 00 e Hypoglycem Hypoglycem Problem Active [facility] ia ia 6-30 Family 00:00: Practic 00 e Body mass Body Mass Problem Active [facility] ry index Index 6-30 Family 25-29 - 25-29 - 00:00: Practic overweight Overweight 00 e Orgasm Orgasm Problem Active [facility] without without 08-28 Family ejaculatio Ejaculatio 00:00: Pr actic n n 00 e Cognitive Cognitive Problem Active [facility] deficit in Deficit in -07 Fa radha attention Attention 00:00: Prac tic 00 e Type 1 Type 1 Problem Active [facility] diabetes Diabetes 3-26 Family mellitus Mellitus 00:00: Practi c uncontroll Uncontroll 00 e ed ed Restless 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[place] ge legs Legs 07-17 Family 00:00: Practic 00 e Ulcer of Ulcer of Problem Active [facility] toe Toe 07-17 Family 00:00: Practic 00 e Family Family Problem Active [facility] history of History of - Nir garcia diabetes Diabetes 00:00: Practi c mellitus Mellitus 00 e Family Family Problem Active [place] history of History of - Nir mckennay cardiac Cardiac 00:00: Practic disorder Disorder 00 e ACCIDENT ACCIDENT Diagnosis Active 2017-03-28 Memoria Active 11-22 13:59:00 l 11/22/2016 13:00: Ministerio forbes [facility] 00 [place] Attention Attention Disease Active 2006-04 Overview: Univers deficit deficit 0-22 Formattin ity o f hyperactiv hyperactiv 00:00: g of this [place] ity ity 00 note Medical disorder disorder might be Bran ch (ADHD) (ADHD) different from the original. ICD10 Diagnosis Term Seasonal Recruiter Utility Uncontroll Uncontroll Disease Active Overview : Univers ed type 1 ed type 1 6-10 Formattin i ty of diabetes diabetes 00:00: g of this [place] as mellitus mellitus 00 note Medica l might be Branch different from the original. Dx age 4ICD10 Diagnosis Term Seasonal Recruiter Utility Diabetes Diabetes Problem Resolve 2016-11-26 Memoria mellitus mellitus d 05:37:49 l (disorder) (disorder) He rmann Resolved Problem 11/26/2016 MAGAN Ledbetter Trichomoni Trichomoni Disease [facility] of [facility] Illness Condition Condition Condition Status Onset Resolution Last Treating Co mments Source Name Details Category Date Date Treatment Clinician Date Strain of Strain of Problem 2016-11-26 2016-11-26 Memoria muscle, muscle, 11-23 05:37:49 05:37:49 l fascia and fascia and 05:00: He rmann tendon at tendon at 00 neck neck level, level, initial initial encounter encounter 11/23/2016 11/26/2016 MAGAN Ledbetter Allergies, Adverse Reactions, Alerts Allergy Allergy Status Severity Reaction(s) Onset Inactive Treating Comm ents Source Name Type Date Date Clinician NO KNOWN Drug Active Univers ALLERGIE Class ity of [facility] Social History Social Habit Start Date Stop Date Quantity Comments Source History SDOH University o f Alcohol Comment [place] [facility] History of Snuff User University of tobacco use [facility] Exposure to 2021-11-05 2021-11-15 Not sure University of SARS-CoV-2 00:00:00 13:22:00 [place] [facility] (event) Branch Alcohol intake 2021-11-08 2021-11-08 Current drinker Unive rsity of 00:00:00 00:00:00 of alcohol [place] [facility] (finding) Branch History [facility] 2020-02-03 2020-02-03 2 University o f Alcohol Frequency 00:00:00 00:00:00 [place] M ed[facility] History [facility] 2020-02-03 2020-02-03 99 University o f Alcohol Std 00:00:00 00:00:00 [place] [facility] Drinks Branch History [facility] 2020-02-03 2020-02-03 99 University o f Alcohol Binge 00:00:00 00:00:00 [place] [facility] Tobacco use and 2020-02-03 2020-02-03 User of smokeless Un iversity of exposure 00:00:00 00:00:00 tobacco [facility] Tobacco Comment 2008-08-06 2008-08-06 on and off Universit y of 00:00:00 00:00:00 [facility] Sex Ass[birth year] At [birth year] Universit y of 00:00:00 00:00:00 [facility] Smoking Status Start Date Stop Date Source Social History [facility] Medications Ordered Filled Start Stop Current Ordering Indication Dosage Frequency Signature Comments Components Source Medication Medication Date Date Medication? Clinician (SIG) Name Name benzonatate Yes [id number] 100mg Take 1 Univers 100 mg 3-25 capsule by ity of capsule 00:00: mouth 3 [place] 00 (three) Medical times Branch daily as needed for Cough. ondansetron Yes [id number] 4mg Take 1 Univers 4 mg 3-25 tablet by ity of disintegrat 00:00: mouth [place] ing tablet 00 every 8 Medica l (eight) Branch hours as needed for Nausea and Vomiting (N/V). chlorphenir Yes [id number] 4mg Take 1 Univers amine 4 mg 3-25 tablet by ity of tablet 00:00: mouth [place] 00 every 6 Medical (six) Branch hours as needed for Allergies or Runny nose. benzonatate 2021-0 Yes [id number] 100mg Take 1 Univers 100 mg 3-25 capsule by ity of capsule 00:00: mouth 3 [place] 00 (three) Medical times Branch daily as needed for Cough. ondansetron 2021-0 Yes [id number] 4mg Take 1 Univers 4 mg 3-25 tablet by ity of disintegrat 00:00: mouth [place] ing tablet 00 every 8 Medica l (eight) Branch hours as needed for Nausea and Vomiting (N/V). chlorphenir 2021-0 Yes [id number] 4mg Take 1 Univers amine 4 mg 3-25 tablet by ity of tablet 00:00: mouth [place] 00 every 6 Medical (six) Branch hours as needed for Allergies or Runny nose. benzonatate 2021-0 Yes [id number] 100mg Take 1 Univers 100 mg 3-25 capsule by ity of capsule 00:00: mouth 3 [place] 00 (three) Medical times Branch daily as needed for Cough. ondansetron 2021-0 Yes [id number] 4mg Take 1 Univers 4 mg 3-25 tablet by ity of disintegrat 00:00: mouth [place] ing tablet 00 every 8 Medica l (eight) Branch hours as needed for Nausea and Vomiting (N/V). chlorphenir 2021-0 Yes [id number] 4mg Take 1 Univers amine 4 mg 3-25 tablet by ity of tablet 00:00: mouth [place] 00 every 6 Medical (six) Branch hours as needed for Allergies or Runny nose. proMETHazin 2021- No 25mg 25 mg, IV Univers e [...] Mon07/06/21 at 0230, STAT proMETHazin 2021-0 Yes [id number] 25mg Take 1 Univers e 25 mg 3-15 tablet by ity of tablet 00:00: mouth [place] 00 every 6 Medical (six) Branch hours as needed for Nausea and Vomiting (N/V). proMETHazin 2021-0 Yes [id number] 25mg Take 1 Univers e 25 mg 3-15 tablet by ity of tablet 00:00: mouth [place] 00 every 6 Medical (six) Branch hours as needed for Nausea and Vomiting (N/V). proMETHazin 2021-0 Yes [id number] 25mg Take 1 Univers e 25 mg 3-15 tablet by ity of tablet 00:00: mouth [place] 00 every 6 Medical (six) Branch hours as needed for Nausea and Vomiting (N/V). proMETHazin 2021-0 Yes [id number] 25mg Take 1 Univers e 25 mg 3-15 tablet by ity of tablet 00:00: mouth [place] 00 every 6 Medical (six) Branch hours as needed for Nausea and Vomiting (N/V). proMETHazin 2021-0 Yes [id number] 25mg Take 1 Univers e 25 mg 3-15 tablet by ity of tablet 00:00: mouth [place] 00 every 6 Medical (six) Branch hours as needed for Nausea and Vomiting (N/V). insulin 2020-1 Yes inject Univers aspart 0-12 under the ity of (NOVOLOG 15:02: skin. [place] FLEXPEN 09 sliding Medical U-100 scale and Branch INSULIN SC) carb intake insulin 2020- Yes inject Univers aspart 0-12 under the ity of (NOVOLOG 15:02: skin. [place] FLEXPEN 09 sliding Medical U-100 scale and Branch INSULIN SC) carb intake insulin 2020-1 Yes inject Univers aspart 0-12 under the ity of (NOVOLOG 15:02: skin. [place] FLEXPEN 09 sliding Medical U-100 scale and Branch INSULIN SC) carb intake insulin 2020-1 Yes inject Univers aspart 0-12 under the ity of (NOVOLOG 15:02: skin. [place] FLEXPEN 09 sliding Medical U-100 scale and Branch INSULIN SC) carb intake insulin 2020- Yes inject Univers aspart 0-12 under the [...] injection Insulin Yes 30U inject Univers Glargine 01-0835 ity of (LANTUS 00:00: Units [place] SOLOSTAR 00 under the Medica l U-100 skin 2 Branch INSULIN) (two) 100 unit/mL times (3 mL) daily. injection clindamycin Yes TAKE 1 Univ ers 300 mg 01-04 CAPSULE BY ity of capsule 00:00: MOUTH THREE Medical TIMES Branch DAILY mupirocin 2 Yes APPLY ON Un kiran % ointment 01-04 THE SKIN ity o f 00:00: TWICE A DAY Medical Branch clindamycin 2019-0 Yes TAKE 1 Univ ers 300 mg 9-13 CAPSULE BY ity of capsule 00:00: MOUTH THREE Medical TIMES Branch DAILY mupirocin 2 2019-0 Yes APPLY ON Un kiran % ointment 9-13 THE SKIN ity o f 00:00: TWICE A Medical Branch clindamycin 2019-0 Yes TAKE 1 Univ ers 300 mg 9-13 CAPSULE BY ity of capsule 00:00: MOUTH Medical TIMES Branch DAILY mupirocin 2 2018-0 Yes APPLY ON Un kiran % ointment 9-13 THE SKIN ity o f 00:00: TWICE A Medical Branch clindamycin 2019- Yes TAKE 1 Univ ers 300 mg 9-13 CAPSULE BY ity of capsule 00:00: MOUTH Medical TIMES Branch DAILY mupirocin 2 2018- Yes APPLY ON Un kiran % ointment 9-13 THE SKIN ity o f 00:00: TWICE A Medical Branch clindamycin 2019- Yes TAKE 1 Univ ers 300 mg 9-13 CAPSULE BY ity of capsule 00:00: MOUTH THREE Medical TIMES Branch DAILY mupirocin 2 2018- Yes APPLY ON Un kiran % ointment 9-13 THE SKIN ity o f 00:00: TWICE A Medical Branch clindamycin 2019-0 Yes TAKE 1 Univ ers 300 mg 9-13 CAPSULE BY ity of capsule 00:00: MOUTH Medical TIMES Branch DAILY mupirocin 2 2018- Yes APPLY ON Un kiran % ointment 9-13 THE SKIN ity o f 00:00: TWICE A Medical Branch clindamycin 2019-0 Yes TAKE 1 Univ ers 300 mg 9-13 CAPSULE BY ity of capsule 00:00: MOUTH THREE Medical TIMES Branch DAILY mupirocin 2 2019-0 Yes APPLY ON Un kiran % ointment 9-13 THE SKIN ity o f 00:00: TWICE A Medical Branch clindamycin 2019-0 Yes TAKE 1 Univ ers 300 mg 9-13 CAPSULE BY ity of capsule 00:00: MOUTH THREE Medical TIMES Branch DAILY mupirocin 2 2018- Yes APPLY ON Un kiran % ointment [...] 00 day, # 21 tab, 0 Refill(s) Cyclobenzap Yes 10 mg, PO, Memoria rine 8-03 TID, PRN l hydrochlori 02:13: Muscle Herm phyllis de 10 MG 00 Spasm, X Oral Tablet 10 day, # [Flexeril] 30 tab, 0 Refill(s) Motrin 800 Yes 800 mg = 1 M emoria mg oral 8-03 tab, PO, l tablet 02:13: TID, X 7 [place] 00 day, # 21 tab, 0 Refill(s) Contour Contour No Contour [facility] Next Test Next Test Next Test Family Strips Strips Strips Practic e FreeStyle FreeStyle No FreeStyle [place] Alessandra 14 Alessandra 14 Alessandra 14 Fam tabitha Day Sensor Day Sensor Day Sensor Practic e FreeStyle FreeStyle No FreeStyle [place] Alessandra 14 Alessandra 14 Alessandra 14 Fam tabitha Day Sensor Day Sensor Day Sensor Practic kit APPLY 1 kit APPLY 1 kit APPLY e PATCH TO PATCH TO 1 PATCH TO ARM AND ARM AND ARM AND CHANGE CHANGE CHANGE EVERY 14 EVERY 14 EVERY 14 DAYS DAYS DAYS Microlet Microlet No Microlet Alice ry Lancet Lancet Lancet Family Pract[facility] e Novolog Novolog No Novolog [facility] e Flexpen Flexpen Flexpen Family U-100 U-100 U-100 Practic Insulin Insulin Insulin e aspart 100 aspart 100 aspart 100 unit/mL (3 unit/mL (3 unit/mL (3 mL) mL) mL) subcutaneou subcutaneou subcutaneo s GIVE s GIVE us GIVE BEFORE BEFORE BEFORE MEALS USING MEALS USING MEALS ICR 1:7; CF ICR 1:7; CF USING ICR 1:50 TOTAL 1:50 TOTAL 1:7; CF DAILY DOSE DAILY DOSE 1:50 TOTAL 50 USE 50 USE DAILY DOSE DIRECTED DIRECTED 50 USE DIRECTED One-A-Day One-A-Day No One-A-Day [facility] Men Men Men Family VitaCraves VitaCraves VitaCraves Practic e Pen Needle Pen Needle No Pen Needle [place] 30 gauge x 30 gauge x 30 gauge x Family 09/06" 09/06" 09/06" Practic e Tresiba Tresiba No Tresiba [facility] FlexTouch FlexTouch FlexTouch Family U-200 U-200 U-200 Practic insulin 200 insulin 200 insulin e unit/mL (3 unit/mL (3 200 mL) mL) unit/mL (3 subcutaneou subcutaneou mL) s pen Give s pen Give subcutaneo 30 units in 30 units in us pen AM and AM and Give 30 increase as increase as units in directed: directed: AM and TDD 80 TDD 80 increase as directed: TDD 80 Immunizations Ordered Filled Immunization Date Status Comments Sourc e Immunization Name Name Influenza Virus 2008-02-15 Completed Universit y of Vaccine 00:00:00 [facility] Influenza Virus 2008-02-15 Completed Universit y of Vaccine 00:00:00 [facility] Influenza Virus 2008-02-15 Completed Universit y of Vaccine 00:00:00 [facility] Influenza Virus 2008-02-15 Completed Universit y of Vaccine 00:00:00 [facility] Influenza Virus 2008-02-15 Completed Universit y of Vaccine 00:00:00 [facility] Influenza Virus 2008-02-15 Completed Universit y of Vaccine 00:00:00 [facility] Influenza Virus 2008-02-15 Completed Universit y of Vaccine 00:00:00 [facility] Influenza Virus 2008-02-15 Completed Universit y of Vaccine 00:00:00 [facility] Influenza Virus 2004-02-19 Completed Universit y of Vaccine 00:00:00 [facility] Influenza Virus 2004-02-19 Completed Universit y of Vaccine 00:00:00 [facility] Influenza Virus 2004-02-19 Completed Universit y of Vaccine 00:00:00 [facility] Influenza Virus 2004-02-19 Completed Universit y of Vaccine 00:00:00 [facility] Influenza Virus 2004-02-19 Completed Universit y of Vaccine 00:00:00 [facility] Influenza Virus 2004-02-19 Completed Universit y of Vaccine 00:00:00 [facility] Influenza Virus 2004-02-19 Completed Universit y of Vaccine 00:00:00 [facility] Vital Signs Vital Name Observation Time Observation Value Comments Source Height 2021-12-08 00:00:00 71 [in_i] [facility] BMI (Body Mass 2021-12-08 00:00:00 26.5 kg/m2 [facility] Family Index) Practice Body Weight 2021-12-08 00:00:00 190 [lb_av] [facility] Systolic blood 2021-07-17 04:05:00 130 mm[Hg] Univer sity of pressure [place] [facility] Diastolic blood 2021-07-17 04:05:00 96 mm[Hg] Unive rsity of pressure [place] [facility] Heart rate 2021-07-17 04:05:00 95 /min Universi ty of [facility] Branch Respiratory rate 2021-07-17 04:05:00 18 /min Univ ersity of [facility] Oxygen saturation in 2021-07-17 04:05:00 99 /min University Arterial blood by [facility] Pulse oximetry Branch Body temperature 2021-07-17 01:58:00 37.06 Deb Univ ersity of [place] [facility] Body height 2021-07-17 01:58:00 177.8 cm Universi ty of [place] [facility] Body weight 2021-07-17 01:58:00 85.276 kg Universi ty of [place] [facility] BMI 2021-07-17 01:58:00 26.98 kg/m2 Universi ty of [place] [facility] Systolic blood 2021-07-17 01:25:00 135 mm[Hg] Univer sity of pressure [place] [facility] Diastolic blood 2021-07-17 01:25:00 92 mm[Hg] Unive rsity of pressure [place] [facility] Heart rate 2021-07-17 01:25:00 102 /min Universi ty of [place] [facility] Body temperature 2021-07-17 01:25:00 36.89 Deb Univ ersity of [place] [facility] Respiratory rate 2021-07-17 01:25:00 18 /min Univ ersity of [place] [facility] Body height 2021-07-17 01:25:00 177.8 cm Universi ty of [place] [facility] Body weight 2021-07-17 01:25:00 85.458 kg Universi ty of [place] [facility] BMI 2021-07-17 01:25:00 27.03 kg/m2 Universi ty of [place] [facility] [place] Oxygen saturation in 2021-07-17 01:25:00 100 /min University of Arterial blood by [facility] allison Pulse oximetry Branch Systolic blood 2021-07-06 08:28:15 120 mm[Hg] Univer sity of pressure [place] [facility] [place] Diastolic blood 2021-07-06 08:28:15 82 mm[Hg] Unive rsity of [facility] Heart rate 2021-07-06 08:28:15 99 /min Universi ty of [place] [facility] [place] Respiratory rate 2021-07-06 08:28:15 20 /min [facility] saturation in 2021-07-06 08:28:15 100 /min University of Arterial blood by [facility] Pulse oximetry Branch Body temperature 2021-07-06 02:17:00 37.11 Deb [facility] [place] Body weight 2021-07-06 02:17:00 86.183 kg Universi ty [facility] BMI 2021-07-06 02:17:00 27.26 kg/m2 Universi ty [facility] Body weight 2021-04-22 21:56:00 88.451 kg Universi ty [facility] Medical [place] BMI 2021-04-22 21:56:00 27.98 kg/m2 Universi ty [facility] BP Diastolic 2020-10-21 00:00:00 67 mm[Hg] [facility] Height 2020-10-21 00:00:00 71 [in_i] [facility] BMI (Body Mass 2020-10-21 00:00:00 25.7 kg/m2 [facility] Family Index) Practice BP Systolic 2020-10-21 00:00:00 101 mm[Hg] [facility] Body Weight 2020-10-21 00:00:00 184.2 [lb_av] [facility] Height 2020-06-19 00:00:00 71 [in_i] [facility] BMI (Body Mass 2020-06-19 00:00:00 26.2 kg/m2 [facility] Family Index) Practice Body Weight 2020-06-19 00:00:00 188 [lb_av] [facility] Respitory Rate 2016-11-24 03:00:00 Nik Spicer Systolic (mm Hg) 2016-11-24 03:00:00 Praneeth rial Kvng Diastolic (mm Hg) 2016-11-24 03:00:00 Mem orial Kv[facility] Temperature Oral (F) 2016-11-24 03:00:00 98.2 F [facility] Heart Rate 2016-11-24 03:00:00 [facility] BMI Calculated 2016-11-24 01:48:00 [facility] [place] Height 2016-11-24 01:48:00 177.8 cm [facility] Weight 2016-11-24 01:48:00 [facility] Respitory Rate 2016-11-24 01:48:00 Memori al [facility] Heart Rate 2016-11-24 01:48:00 [facility] Systolic (mm Hg) 2016-11-24 01:48:00 Praneeth rial [place] Diastolic (mm Hg) 2016-11-24 01:48:00 Mem orial [place] Temperature Oral (F) 2016-11-24 01:48:00 98.1 F [facility] Procedures Procedure Date / Time Performed Performing Clinician [facility] 2021-11-15 05:01:00 Doctor Unassigned, No [facility] MEDICAL RECORDS / Name Medical Branch REFERRALS RAPID INFLUENZA A/B 2021-07-17 03:03:00 Watkins, Waldo [facility] Medical Branch COVID-19 (ID NOW 2021-07-17 03:03:00 [facility] RAPID TESTING) Medical [place] COMP. METABOLIC PANEL 2021-07-17 02:25:00 Waldo Watkins [facility] ([id number]) Medical Branch CBC WITH DIFF 2021-07-17 02:25:00 Singer [facility] POCT GLUCOSE 2021-07-17 02:18:00 Watkins, [facility] (AUTOMATED) [facility] Branch XR CHEST 1 VW 2021-07-17 [facility]:11[facility] 2021-07-17 01:42:52 Doctor Unassigned, No [facility] DIAGNOSIS AND Name Medical Branch TREATMENT POCT GLUCOSE 2021-07-06 09:31:00 Olivia Muhammad [facility] (AUTOMATED) Medical Branch LIPASE 2021-07-06 03:10:00 Olivia Muhammad [facility] TROPONIN I 2021-07-06 03:10:00 Juan C Kunz [facility] COMP. METABOLIC PANEL 2021-07-06 03:10:00 Olivia Muhammad [facility] ([id number]) [facility] CBC WITH DIFF 2021-07-06 03:10:00 Olivia Muhammad [facility] EXTRA TUBE DK. GREEN 2021-07-06 03:10:00 Olivia Muhammad [facility] CONSENT/REFUSAL FOR 2021-07-06 02:15:31 [facility]igned, [facility] Name [facility] Branch TREATMENT [facility] CONSENT 2021-05-24 21:01:50 Doctor Unassigned, No U [facility] FOR FREE TREATMENT Name Medical [facility] h FORM Removal of silastic [facility] fox tubes from ear Plan of Care Planned Activity Planned Date Details Comments Source Diagnostic Test 2021-12-08 glucose, fingerstick, Alice Rice Pending 00:00:00 blood [code = Practice glucose, fingerstick, blood] Diagnostic Test 2021-12-08 hemoglobin A1C, Adenike leblanc Pending 00:00:00 fingerstick [code = Practice hemoglobin A1C, fingerstick] Future Appointment 2022-03-10 Ted Helder, [id number] [facility] 00:00:[address]; Practice [address], [place] [address] Encounters Start End Encounter Admission Attending Care Care Encounter Source Date/Time Date/Time Type Type Clinicians Facility Department ID 2021-04-20 Emergency X BRITTON, [facility] OPH [id number] Univers 23:58:17 AIST ity [facility] 2021-12-23 2021-12-23 Outpatient Daniel_T VFP VFP [id number] [id number] Village 00:00:00 00:00:00 [id number] Family Practic e 2021-12-22 2021-12-22 Outpatient Daniel_T VFP VFP [id number] [id number] Village 00:00:00 00:00:00 [id number] Family Practic e 2021-12-21 2021-12-21 Outpatient Daniel_T VFP VFP [id number] [address] [place] [address] 00:00:00 00:00:00 [id number] Family Practic e 2021-12-20 2021-12-20 Outpatient Daniel_T VFP VFP [id number] [address] [place] [address] 00:00:00 00:00:00 [id number] Family Practic e 2021-12-18 2021-12-18 Outpatient Daniel_T VFP VFP [id number] [address] [place] [address] 00:00:00 00:00:00 [id number] Family Practic e 2021-12-17 2021-12-17 Outpatient Daniel_T VFP VFP [id number] [address] [place] [address] 00:00:00 00:00:00 [id number] Family Practic e 2021-12-15 2021-12-15 Outpatient Daniel_T VFP VFP [id number] [address] [place] [address] 00:00:00 00:00:00 [id number] Family Practic e 2021-12-14 2021-12-14 Outpatient Daniel_T VFP VFP [id number] [address] [place] [address] 00:00:00 00:00:00 [id number] Family Practic e 2021-12-10 2021-12-10 Outpatient Daniel_T VFP VFP [id number] [address] [place] [address] 00:00:00 00:00:00 [id number] Family Practic e 2021-12-08 2021-12-08 Outpatient Daniel_T VFP VFP [id number] [address] [place] [address] 00:00:00 00:00:00 [id number] Family Practic e 2021-12-08 2021-12-08 Ted VFP [place] - [id number] V illage 00:00:00 00:00:00 [facility] [facility] - Practi axel GARZA: [id number] VM_PATRICKU_Oliver e Shadow ow [facility], [address], [place] [address] , Ph. 2021-11-15 2021-11-15 Orders Doctor KHANH 1.2.840.114 [id number] 00:00:00 00:00:00 Only Unassigned, MARSHALL 350.1.13.[address] [place] [facility] 4.2.7.2.686 Leo as [phone] [place] [address] Branch 2021-08-02 2021-08-02 [facility]phone [facility] 1.2.302.216 [id number] Univers 00:00:00 00:00:00 Akshata SPECIALTY 350.1.13.10 ity of [facility] 4.2.7.2.686 [facility] AT [phone] Vt reno MERCADO 072 [facility] 2021-07-30 2021-07-30 Outpatient R TABITHA ROSE [facility] [id number] Univers 13:30:00 13:30:00 TABITHA ROSE [facility] 2021-07-16 2021-07-16 Emergency X [facility] ERT [id number] Univers 21:04:00 23:28:00 WALDO [facility] 2021-07-16 2021-07-16 Emergency [facility] 1.2.721.263 [id number] Univers 21:04:00 23:28:00 Waldo BUTT 350.1.13.10 i ty of [place] 4.2.7.2.686 [facility] [id number] [facility] [address] [place] 2021-07-16 2021-07-16 Urgent Nurse, [facility] 1.2.840.114 [id number] Univers 20:20:00 20:40:00 Care Aracelismskyara [facility] 350.1.13.10 ity [facility] 4.2.7.2.686 Leo as BELINDA?BLEA [phone] Vt brittonserafin STORM [address] [place] MEDICAL OFFICE BUILDING 2021-07-16 2021-07-16 Outpatient R OSIRIS [facility] [id number] Univers 20:20:00 20:20:00 TAMEKA [facility] 2021-07-05 2021-07-06 Emergency X IGNACIA [facility] ERT [id number] Univers 21:19:00 04:37:00 OLIVIA [facility] 2021-07-05 2021-07-06 Emergency Gabbi, Ziggy TRAUMA 1.2.840 .114 [id number] Univers 21:19:00 04:37:00 Olivia Muhammad CENTER 350.1.13.10 [place] [id number] [facility] [address] 2021-05-24 2021-05-24 Orders Doctor KHANH 1.2.840.114 [id number] Univers 00:00:00 00:00:00 Only Unassigned, MARSHALL 350.1.13.10 ity of [place] [facility] 4.2.7.2.686 Leo as [id number] [facility] [address] 2021-04-22 2021-04-22 Outpatient R BETH GOMEZ [facility] [id number] Univers 14:45:00 16:44:38 BETH GOMEZ [facility] 2021-04-22 2021-04-22 Office Mar [facility] 1.2.840.114 [id number] Univers 14:45:00 16:44:38 Visit [facility] 350.1.13.10 [place] [id number] [address] DIABETES CLINIC 2021-04-22 2021-04-22 Orders Doctor KHANH 1.2.840.114 [id number] Univers 00:00:00 00:00:00 Only Unassigned, MARSHALL 350.1.13.10 ity of [place] [facility] 4.2.7.2.686 Leo as [id number] [place] [address] Branch 2021-04-21 2021-04-21 Emergency X KIMI [facility] ERT [id number] Univers 01:59:00 03:30:00 ANGELA ity of [facility] 2021-04-21 2021-04-21 Emergency Britton, Aishat Tila TRAUMA 1.2.840.114 [id number] Univers 01:59:00 03:30:00 Ted Yanez CENTER 350.1.13.10 [place] [id number] [facility] [address] 2021-04-21 2021-04-21 Emergency X [facility] ERT [id number] Univers 01:30:00 01:30:00 ity of [facility] 2021-04-202021-04-21 Emergency [facility] ERT [id number] Univers 22:55:00 01:01:00 ANGELA ity of [facility] 2021-04-20 2021-04-21 Emergency Kimi [facility] 1.2.878.189 [id number] Univers 22:55:00 01:01:00 Angela BUTT 350.1.13.10 i ty of [place] 4.2.7.2.[address] [facility] [id number] [facility] [address]84 [address] 2021-04-21 2021-04-21 Telephone Mar [facility] 1.2.499.487 [id number] Univers 00:00:00 00:00:00 Beth MULTISPEC 350.1.13.10 ity of [facility] 4.2.7.2.686 [facility] [phone] [facility] [place] [address] Branch DIABETES CLINIC 2021-04-20 2021-04-20 Nurse Shirley CASSIDY 1.2.840.114 [id number] Univers 00:00:00 00:00:00 Triage SrakisMARSHALL whiting 350.1.13.10 ity of [facility] 4.2.7.2.686 Leo as [phone] [facility] [address]19 [address] 2021-04-20 2021-04-20 Orders Doctor KHANH 1.2.840.114 [id number] Univers 00:00:00 00:00:00 Only Unassigned, MARSHALL 350.1.13.[address] [place] [facility] 4.2.7.2.686 Leo as [id number] [facility] [address]9 [address] 2021-01-07 2021-01-07 Outpatient Helder_T VFP VFP [id number] -[id number] Village 00:00:00 00:00:00 [id number] Family Practic e 2020-12-16 2020-12-16 Letter KHANH Owens 1.2.840.114 [id number] Univers 00:00:00 00:00:00 (Out) Olivia OLIVARES 350.1.13.[address] [facility] 4.2.7.2.686 Leo as [phone] [facility] [address]19 [address] 2020-12-14 2020-12-14 Outpatient R SAMIR, [facility] [id number] Univers 17:40:00 17:40:00 SUSHMA zapata [facility] 2020-12-03 2020-12-03 Outpatient Daniel_T VFP VFP [id number] [address] [place] [address] 01:20:00 01:20:00 [id number] Family Practic e 2020-10-29 2020-10-29 Outpatient Daniel_T VFP VFP [id number] [address] [place] [address] 01:46:00 01:46:00 [id number] Family Practic e 2020-10-23 2020-10-23 Outpatient Daniel_T VFP VFP [id number] [address] [place] [address] 09:07:00 09:07:00 [id number] Family Practic e 2020-10-21 2020-10-21 Outpatient Daniel_T VFP VFP [id number] [address] [place] [address] 06:24:00 06:24:00 [id number] Family Practic e 2020-10-21 2020-10-21 Ted VFP [place] - [id number] V illage 00:00:00 00:00:00 [facility] - Pracolivia reyna MD: [id number] VM_TRESSA_Oliver e Shadow [facility], [address], [place] [address] , Ph. 2020-09-25 2020-09-25 Outpatient Daniel_T VFP VFP [id number] [address] [place] [address] 01:01:00 01:01:00 [id number] Family Practic e 2020-08-21 2020-08-21 Outpatient Daniel_T VFP VFP [id number] [address] [place] [address] 01:02:00 01:02:00 [id number] Family Practic e 2020-08-14 2020-08-14 Outpatient Daniel_T VFP VFP [id number] [address] [place] [address] 02:02:00 02:02:00 [id number] Family Practic e 2020-07-03 2020-07-03 Outpatient Daniel_T VFP VFP [id number] [address] [place] [address] 01:07:00 01:07:00 [id number] Family Practic e 2020-06-19 2020-06-19 Outpatient Daniel_T VFP VFP [id number] [facility] 05:48:00 05:48:00 [id number] Family Practic e 2020-06-19 2020-06-19 Ted VFP [place] - [id number] V illage 00:00:00 00:00:00 [facility] - Pracolivia reyna MD: [id number] VM_HOU_Shad e Shadow ow [place] [address], [address], [place] [address] , Ph. 2020-05-17 2020-05-17 Outpatient Helder_T VFP VFP [id number] [address] 01:04:00 01:04:00 [id number] Family Practic e 2020-05-14 2020-05-14 Outpatient Helder_T VFP VFP [id number] [facility] 12:02:00 12:02:00 [id number] Family Practic e 2020-03-27 2020-03-27 Telephone [facility] 1.2.017.194 [id number] Univers 00:00:00 00:00:00 [facility] 350.1.13.10 it y of Surgical 4.2.7.2.686 Leo as Specialti [phone] Vt dical es 198 [facility] 2020-03-12 2020-03-12 Outpatient [facility] [id number] Univers 09:00:00 09:00:00 CAITLIN matos [facility] 2020-03-04 2020-03-04 Orders Doctor KHANH 1.2.840.114 [id number] Univers 00:00:00 00:00:00 Only Unassigned, MARSHALL 350.1.13.10 ity of [place] [facility] 4.2.7.2.686 Leo as [id number] [address] 2020-03-04 2020-03-04 Orders Doctor KHANH 1.2.840.114 [id number] 00:00:00 00:00:00 Only Unassigned, MARSHALL 350.1.13.10 [place] [facility] 4.2.7.2.686 [id number] 009 2020-02-25 2020-02-25 [facility] 1.2.840.114 [id number] Univers 09:18:37 23:59:00 Encounter Caitlin [facility] 350.1.13.10 ity of Surgical 4.2.7.2.686 Leo as Specialti [phone] Me dical es 809 [facility] 2020-02-25 2020-02-25 [facility] 1.2.840.114 [id number] 09:18:37 23:59:00 Encounter Caitlin [facility] 350.1.13.10 Surgical 4.2.7.2.686 Specialti [id number] es 809 [place] 2020-02-25 2020-02-25 Outpatient [facility] [id number] [facility] 11:00:00 11:00:00 NICOLA ity [facility] 2020-02-25 2020-02-25 Office [facility] 1.2.840.114 [id number] Univers 09:02:34 09:17:34 Visit Nicola S Health 350.1.13.10 it y of Surgical 4.2.7.2.686 Leo as Specialti [id number] Vt dical es 198 [facility] 2020-02-25 2020-02-25 Office [facility] 1.2.840.114 [id number] 09:02:34 09:17:34 Visit Nicola S Health 350.1.13.10 Surgical 4.2.7.2.686 Specialti [id number] es 198 [place] 2020-02-21 2020-02-21 [facility] 1.2.701.659 [id number] Univers 00:00:00 00:00:00 [facility] 350.1.13.10 it y of Surgical 4.2.7.2.686 Leo as Specialti [phone] Vt dical es 198 [facility] 2020-02-21 2020-02-21 [facility] 1.2.907.536 [id number] 00:00:00 00:00:00 [facility] 350.1.13.10 Surgical 4.2.7.2.686 Specialti [id number] es 198 [place] 2020-02-17 2020-02-17 Telephone [facility] 1.2.437.733 [id number] Univers 00:00:00 00:00:00 [facility] 350.1.13.10 it y of Surgical 4.2.7.2.686 Leo as Specialti [id number] Vt dical es 198 [facility] 2020-02-13 2020-02-13 Telephone [facility] 1.2.840.114 [id number] Univers 00:00:00 00:00:00 Caitlin [facility] 350.1.13.10 it y of Surgical 4.2.7.2.686 Leo as Specialti [id number] Vt dical es 198 [facility] 2020-02-12 2020-02-12 Orders Doctor KHANH 1.2.840.114 [id number] Univers 00:00:00 00:00:00 Only Unassigned, MARSHALL 350.1.13.10 ity of [place] [facility] 4.2.7.2.686 Leo as [id number] [address] 2020-02-09 2020-02-09 Telephone [facility] 1.2.840.114 [id number] Univers 00:00:00 00:00:00 Caitlin [facility] 350.1.13.10 it y of Surgical 4.2.7.2.686 Leo as Specialti [id number] Vt dical es 198 [facility] 2020-02-05 2020-02-05 Telephone [facility] 1.2.840.114 [id number] Univers 00:00:00 00:00:00 Caitlin [facility] 350.1.13.10 it y of Surgical 4.2.7.2.686 Leo as Specialti [id number] Vt dical es 198 [facility] 2020-02-04 2020-02-04 Dispute Resolution Analyst Mela, Adc Lab Main [facility] 1.2.8 40.114 [id number] Univers 10:22:40 10:37:40 Visit ZacharyCaitlin Elvira [place] 350.1.13.10 ity of [place] [phone] Vt dical nal 353 [facility] 2020-02-04 2020-02-04 Outpatient [facility] [id number] Univers 10:00:00 10:00:00 CAITLIN ity [facility] 2020-02-03 2020-02-03 Office [facility] 1.2.840.114 [id number] Univers 14:56:01 15:11:01 Visit Nicola Stout [facility] 350.1.13.10 it y of Surgical 4.2.7.2.686 Leo as Specialti [id number] Vt dical es 198 [facility] 2020-02-03 2020-02-03 Outpatient [facility] [id number] Univers 14:45:00 14:45:00 NICOLA ity [facility] 2019-07-22 2019-07-22 Telephone [facility] 1.2.840.114 [id number] Univers 00:00:00 00:00:00 Wonamy Tegan Butt 350.1.13.10 ity of [place] [id number] Vt dical nal 044 [facility] 2019-07-18 2019-07-18 Orders Doctor KHANH 1.2.840.114 [id number] Univers 00:00:00 00:00:00 Only Unassigned, MARSHALL 350.1.13.10 ity of [place] [facility] 4.2.7.2.686 Leo as [id number] [address] 2016-11-24 2016-11-24 Emergency [facility] [id number] Memoria 01:46:00 03:02:00 karol Calderon 00 l [facility] 2016-11-24 2016-11-24 Emergency [facility] 06393 [id number] Memoria 01:46:00 03:02:00 karol Calderon 00 l [facility] 2016-11-23 2016-11-23 Outpatient Gage, EULOGIO MHPL [id number] [id number] 20:46:00 22:02:00 Abdiwahab 00 Pineda 2009-02-13 2009-02-13 Outpatient [facility] [id number] Univers 00:00:00 11:08:00 3 ity [facility] 2008-11-04 2008-11-04 Outpatient [facility] [id number] Univers 00:00:00 16:27:00 0 ity [facility] 2008-09-09 2008-09-09 Outpatient [facility] [id number] Univers 00:00:00 12:39:00 2 ity of [facility] 2008-08-06 2008-08-06 Outpatient [facility] [id number] Univers 00:00:00 14:06:00 7 ity [facility] 2008-02-15 2008-02-15 Outpatient [facility] [id number] Univers 00:00:00 11:52:00 2 ity [facility] 2007-07-24 2007-07-24 Outpatient [facility] [id number] Univers 00:00:00 17:46:00 3 ity [facility] 2007-03-27 2007-03-27 Outpatient [facility] [id number] Univers 00:00:00 16:02:00 2 ity [facility] 2007-02-13 2007-02-13 Outpatient [facility] [id number] Univers 00:00:00 16:34:00 3 ity [facility] 2006-10-09 2006-10-09 Outpatient [facility] [id number] Univers 00:00:00 17:00:00 4 ity [facility] 2006-09-03 2006-09-05 Inpatient O KENDALL BOWEN [facility] PED [id number] Univers 22:36:00 16:54:00 [facility] 2006-05[facility]11 2006-05-11 Outpatient [facility] [id number] Univers 00:00:00 17:17:00 [facility] 2005-09-30 2005-10-02 Inpatient X ISA CARR [facility] PED 30 [id number] Univers 10:54:00 11:12:00 ISA CARR 4 ity [facility] 2005-07-21 2005-07-21 Outpatient [facility] [id number] Univers 00:00:00 17:07:00 2 ity [facility] 2005-05-12 2005-05-12 Outpatient [facility] [id number] Univers 00:00:00 16:33:00 4 [facility] Results Test Description Test Time Test Comments Results Result Comments Source COMP. METABOLIC PANEL (83746) 2021-07-17 03:33:01 Test Item Value Reference Range Interpretation Comme nts NA (test code = 4758593494) 133 mmol/L 135-145 L K (test code = 4297303068) 4.2 mmol/L 3.5-5.0 CL (test code = 0143744650) 95 mmol/L 98-108 L CO2 TOTAL (test code = 9499465303) 29 mmol/L 23-31 AGAP (test code = 3650933182) 2-16 BUN (test code = 8389782367) 21 mg/dL 7-23 GLUCOSE (test code = 6442325573) 385 mg/dL 70-110 H CREATININE (test code = 0.90 mg/dL 0.60-1.25 9974135307) TOTAL BILI (test code = 0.9 mg/dL 0.1-1.9 6159890735) CALCIUM (test code = 5206729782) 8.6 mg/dL 8.6-10.6 T PROTEIN (test code = 8240533440) 6.3 g/dL 6.3-8.2 ALBUMIN (test code = 8794668308) 3.8 g/dL 3.5-5.0 ALK PHOS (test code = 8900561076) 59 U/L 34-122 ALTv (test code = 1742-6) 37 U/L 5-50 AST(SGOT) (test code = 9755397181) 33 U/L 13-40 eGFR (test code = 9222318961) mL/min/1.73m2 PARKER (test code = PARKER) Association of Glomerular Filtration Rate (GFR) and Staging of Kidney Disease* + +-------- + ------+| GFR (mL/min/1.73 m2) ?| With Kidney Damage ?| ?Without Kidney Damage+ +-- + +| ?>90 ?| ?Stage one ?| ? Normal ?+ +------- + -------+| ?60-89 ?| ?Stage two ?| ? Decreased GFR ? + +-------- + ------+| ?30-59 ?| ?Stage three ?| ? Stage three ? + +-------- + ------+| ?15-29 ?| ?Stage four ? | ? Stage four ?+ +------- + -------+| ?<15 (or dialysis) ? ?| ?Stage five ? | ? Stage five ?+ +------- + -------+ *Each stage assumes the associated GFR [...] or abnormalities in imaging tests). Lab Interpretation (test code = Abnormal 81452-7) [facility]2021-07-17 02:56:30 Test Item Value Reference Range Interpretation Comments POCT GLU (test code = 8765507558) 446 mg/dL 70-110 H Lab Interpretation (test code = Abnormal 86262-7) [facility] WITH [id number] 02:53:13 Test Item Value Reference Range Interpretation Comments WBC (test code = See_Comment [Automated 6690-2) message] The sy stem which generated this result transmitted reference range : 4.20 - 10.70 10*3/?L. The reference range was not used to interpret this result as normal/abnormal . RBC (test code = See_Comment L [Automated 789-8) message] The sy stem which generated this result transmitted reference range : 4.26 - 5.52 10*6/?L. The reference range was not used to interpret this result as normal/abnormal . HGB (test code = 12.3 g/dL 12.2-16.4 718-7) HCT (test code = 33.5 % 38.4-49.3 L 4544-3) MCV (test code = 82.3 fL 81.7-95.6 787-2) MCH (test code = 30.2 pg 26.1-32.7 785-6) MCHC (test code = 36.7 g/dL 31.2-35.0 H 786-4) RDW-SD (test code = 35.9 fL 38.5-51.6 L 93882-6) RDW-CV (test code = 12.8 % 12.1-15.4 788-0) PLT (test code = See_Comment [Automated 777-3) message] The sy stem which generated this result transmitted reference range : 150 - 328 10*3/ ?L. The reference r aixa was not used to interpret this result as normal/abnormal . MPV (test code = 10.4 fL 9.8-13.0 86844-8) NRBC/100 WBC (test See_Comment [Automat ed code = 5990416273) message] The system which generated this result transmitted reference range : 0.0 - 10.0 /100 WBCs. The refer ence range was not u sed to interpret th is result as normal/abnormal . NRBC x10^3 (test code <0.01 See_Comment [Auto mated = 3195391481) message] The s ystem which generated this result transmitted reference range : 10*3/?L. The reference range was not used to interpret this result as normal/abnormal . GRAN MAT (NEUT) % 49.8 % (test code = 770-8) IMM GRAN % (test code 0.20 % = 4507607547) LYMPH % (test code = 39.2 % 736-9) MONO % (test code = 8.7 % 5905-5) EOS % (test code = 1.9 % 713-8) BASO % (test code = 0.2 % 706-2) GRAN MAT x10^3(ANC) 2.12 10*3/uL 1.99-6.95 (test code = 3028176882) IMM GRAN x10^3 (test <0.03 0.00-0.06 code = 9623089919) LYMPH x10^3 (test code 1.67 10*3/uL 1.09-3.23 = 731-0) MONO x10^3 (test code 0.37 10*3/uL 0.36-1.02 = 742-7) EOS x10^3 (test code = 0.08 10*3/uL 0.06-0.53 711-2) BASO x10^3 (test code <0.03 0.01-0.09 = 704-7) Lab Interpretation Abnormal (test code = 07219-3) [facility] GLUCOSE (AUTOMATED)2021-07-06 09:32:34 Test Item Value Reference Range Interpretation Comments POCT GLU (test code = 3638600453) 312 mg/dL 70-110 H Lab Interpretation (test code = Abnormal 19925-7) [facility] [id number] 07:02:35 Test Item Value Reference Interpretation Comments Range TROPONIN I (test 0.004 ng/mL See_Comment [Automated code = 5554202324) message] The system which generated this result transmitted reference range : <=0.034. The reference range was not used to interpret this result as normal/abnormal . PAREKR (test code = Reference (Normal) PARKER) Range [...] biotin. Lab Interpretation Normal (test code = 52823-6) [facility] 06:49:16 Test Item Value Reference Range Interpretation Comments LIPASE (test code = 9644567295) 23 U/L 0-220 Lab Interpretation (test code = Normal 16882-4) [facility] WITH [id number] 03:49:28 Test Item Value Reference Range Interpretation Comments WBC (test code = See_Comment [Automated 0274-2) message] The sy stem which generated this result transmitted reference range : 4.20 - 10.70 10*3/?L. The reference range was not used to interpret this result as normal/abnormal . RBC (test code = See_Comment [Automated 661-8) message] The sy stem which generated this [...] (test code = 36.2 fL 38.5-51.6 L 10522-5) RDW-CV (test code = 12.1 % 12.1-15.4 788-0) PLT (test code = See_Comment [Automated 777-3) message] The sy stem which generated this result transmitted reference range : 150 - 328 10*3/ ?L. The reference r aixa was not used to interpret this result as normal/abnormal . MPV (test code = 9.9 fL 9.8-13.0 72902-4) IPF % (test code = 3.1 % 1.2-10.7 Platelet count 2687833056) measured by fluorescence method. NRBC/100 WBC (test See_Comment [Automat ed code = 7038469580) message] The system which generated this result transmitted reference range : 0.0 - 10.0 /100 WBCs. The refer ence range was not u sed to interpret th is result as normal/abnormal . NRBC x10^3 (test code <0.01 See_Comment [Auto mated = 2926868850) message] The s ystem which generated this result transmitted reference range : 10*3/?L. The reference range was not used to interpret this result as normal/abnormal . GRAN MAT (NEUT) % 77.8 % (test code = 770-8) IMM GRAN % (test code 0.30 % = 4682736254) LYMPH % (test code = 17.0 % 736-9) MONO % (test code = 4.2 % 5905-5) EOS % (test code = 0.3 % 713-8) BASO % (test code = 0.4 % 706-2) GRAN MAT x10^3(ANC) 5.87 10*3/uL 1.99-6.95 (test code = 0308637210) IMM GRAN x10^3 (test <0.03 0.00-0.06 code = 4478903940) LYMPH x10^3 (test code 1.28 10*3/uL 1.09-3.23 = 731-0) MONO x10^3 (test code 0.32 10*3/uL 0.36-1.02 L = 742-7) EOS x10^3 (test code = <0.03 0.06-0.53 L 711-2) BASO x10^3 (test code 0.03 10*3/uL 0.01-0.09 = 704-7) Lab Interpretation Abnormal (test code = 16028-7) [facility]. METABOLIC PANEL (18169)2021-07-06 03:36:26 Test Item Value Reference Range Interpretation Comments NA (test code = 135 mmol/L 135-145 2752048071) K (test code = 4.2 mmol/L 3.5-5.0 7771951007) CL (test code = 100 mmol/L 98-108 9447437868) CO2 TOTAL (test code = 25 mmol/L 23-31 2122138682) AGAP (test code = 2-16 6766602981) BUN (test code = 31 mg/dL 7-23 H 1948576612) GLUCOSE (test code = 337 mg/dL 70-110 H 0992395273) CREATININE (test code = 1.40 mg/dL 0.60-1.25 H 1254440558) TOTAL BILI (test code = 1.0 mg/dL 0.1-1.4 5159952616) CALCIUM (test code = 9.2 mg/dL 8.6-10.6 2203522158) T PROTEIN (test code = 7.7 g/dL 6.3-8.2 7916300996) ALBUMIN (test code = 4.8 g/dL 3.5-5.0 3623002944) ALK PHOS (test code = 79 U/L 34-122 4534481869) ALTv (test code = 26 U/L 5-50 1742-6) AST(SGOT) (test code = 25 U/L 13-40 6860738709) eGFR (test code = mL/min/1.73m2 5473352360) PARKER (test code = PARKER) Association of [...] tests). Lab Interpretation Abnormal (test code = 61442-5) [facility] [id number] [facility]:00 Test Item Value Reference Range Interpretation Comments CULTURE (BEAKER) (test No growth in 5 days code = 1095) BLOOD [id number] 02:01:00 Test Item Value Reference Range Interpretation Comments CULTURE (BEAKER) (test No growth in 5 days code = 1095) MRSA [id number] 09:59:00 Test Item Value Reference Range Interpretation Comments CULTURE (BEAKER) (test code No MRSA isolated = 1095) TISSUE [id number] 15:35:00Surgical Pathology Report Case: [id number] Authorizing Provider: Won Randall MD Collected: 10/17/2018 0823 Ordering Location: [address] Received: 10/17/2018 1401 Service Pathologist: Natividad Shrestha MD Specimens: A) - Duodenum, random bx B) - Biopsy, Gastric, body and antrum A. DUODENUM , RANDOM BIOPSY- NO DIAGNOSTIC ALTERATIONB. STOMACH, BODY AND ANTRUM, BIOPSY- CHRONIC INACTIVE GASTRITIS, MILD- NO INTESTINAL METAPLASIA, DYSPLASIA OR INVASIVE CARCINOMA IDENTIIFIED- NO HELICOBACTERPYLORI LIKE ORGANISMS IDENTIFIED ON WARTHIN STARRY STAIN Signing Pathologist Direct Phone Line: [phone] signed by Natividad Shrestha MD on 10/18/2018 at 3:35 [id number] x 2, [id number] and postop diagnosis: intractable vomiting, presence of nausea not specified, unspecified vomiting type A. Duodenum random biopsy; B. Biopsy, gastric, body and antrumA. Received in formalin labeled with the patient's name, accession number and "duodenum" are three irregular woo soft tissue fragments ranging 0.1-0.3 cm which are submitted in toto in A1. B. .Received in formalin labeled with the patient's name, accession number and "biopsy, gastric" are four [...] evaluated Immunohistochemistry technical testing was performed at [facility] [facility] where it was developed and its performance characteristics were determined. It has not been cleared or approved [...] to perform high complexity clinical laboratory testing.POCT-GLUCOSE [id number] 10:09:00 Test Item Value Reference Range Interpretation Comments POC-GLUCOSE METER 118 mg/dL 70-110 H TESTED AT [facility] 6720 ([place]) (test code = [place] 1538) [address] [id number] 06:56:00 Test Item Value Reference Range Interpretation Comments MAGNESIUM (BEAKER) (test code = 2.0 mg/dL 1.6-2.6 627) BASIC METABOLIC [id number] 06:40:00 Test Item Value Reference Range Interpretation [...] NOT APPLICABLE FOR DIALYSIS PATIEN TS. POCT-GLUCOSE [id number] 20:40:00 Test Item Value Reference Range Interpretation Comments POC-GLUCOSE METER 172 mg/dL 70-110 H TESTED AT [place] [address] ([facility]) (test code = [facility] 1538) [address] POCT-GLUCOSE [id number] 18:25:00 Test Item Value Reference Range Interpretation Comments POC-GLUCOSE METER 200 mg/dL 70-110 H TESTED AT [place] [address] ([facility]) (test code = [facility] 1538) [address] POCT-GLUCOSE [id number] 15:26:00 Test Item Value Reference Range Interpretation Comments POC-GLUCOSE METER 232 mg/dL 70-110 H TESTED AT [place] [id number] ([facility]) (test code = [facility] 1538) [address] POCT-GLUCOSE [id number] 13:00:00 Test Item Value Reference Range Interpretation Comments POC-GLUCOSE METER 228 mg/dL 70-110 H TESTED AT [place] [address] ([facility]) (test code = [facility] 1538) [address] POCT-GLUCOSE [id number] 10:43:00 Test Item Value Reference Range Interpretation Comments POC-GLUCOSE METER 207 mg/dL 70-110 H TESTED AT [facility] 6720 (BEAKER) (test code = CAROLA Roberson [facility] 1538) [address] POCT-GLUCOSE [id number] 09:16:00 Test Item Value Reference Range Interpretation Comments POC-GLUCOSE METER 269 mg/dL 70-110 H TESTED AT [place] [address] (BEAKER) (test code = CAROLA Roberson [facility] 1538) [address] POCT-GLUCOSE [id number] 07:26:00 Test Item Value Reference Range Interpretation Comments POC-GLUCOSE METER 239 mg/dL 70-110 H TESTED AT [place] [address] (BEAKER) (test code = CAROLA Roberson [facility] 1538) [address] BASIC METABOLIC [id number] 06:42:00 Test Item Value Reference Range Interpretation [...] S NOT APPLICABLE FOR DIALYSIS PATIEN TS. [id number] 06:42:00 Test Item Value Reference Range Interpretation Comments PHOSPHORUS (BEAKER) (test code = 2.0 mg/dL 2.3-4.7 L 604) [id number] 06:42:00 Test Item Value Reference Range Interpretation Comments MAGNESIUM (BEAKER) (test code = 2.3 mg/dL 1.6-2.6 627) CBC W/PLT COUNT & AUTO [id number] 06:34:00 Test Item Value Reference Range Interpretation [...] (test code = 416) BASOPHILS ABSOLUTE COUNT ([facility]) 0.02 K/ L 0.01-0.08 (test code = 417) IMMATURE GRANULOCYTES-RELATIVE 0 % 0-1 PERCENT ([facility]) (test code = 2801) POCT-GLUCOSE [id number] 22:23:00 Test Item Value Reference Range Interpretation Comments POC-GLUCOSE METER 237 mg/dL 70-110 H TESTED AT [facility] 67 ([facility]) (test code = [place] 1538) [address] POCT-GLUCOSE [id number] 20:39:00 Test Item Value Reference Range Interpretation Comments POC-GLUCOSE METER 298 mg/dL 70-110 H TESTED AT [place] [address] ([facility]) (test code = [place] 1538) [address] POCT-GLUCOSE [id number] 17:49:00 Test Item Value Reference Range Interpretation Comments POC-GLUCOSE METER 255 mg/dL 70-110 H TESTED AT [place] [address] ([facility]) (test code = [place] 1538) [address] POCT-GLUCOSE [id number] 13:35:00 Test Item Value Reference Range Interpretation Comments POC-GLUCOSE METER 190 mg/dL 70-110 H TESTED AT [place] [address] ([facility]) (test code = [place] 1538) [address] POCT-GLUCOSE [id number] 12:31:00 Test Item Value Reference Range Interpretation Comments POC-GLUCOSE METER 204 mg/dL 70-110 H TESTED AT [place] [address] ([facility]) (test code = CARLOA Roberson [place] 1538) [address] POCT-GLUCOSE [id number] 11:38:00 Test Item Value Reference Range Interpretation Comments POC-GLUCOSE METER 165 mg/dL 70-110 H TESTED AT [place] [address] ([facility]) (test code = CAROLA Roberson [place] 1538) [address] POCT-GLUCOSE [id number] 10:35:00 Test Item Value Reference Range Interpretation Comments POC-GLUCOSE METER 231 mg/dL 70-110 H TESTED AT [place] [address] ([facility]) (test code = CAROLA Roberson [place] 1538) [address] BASIC METABOLIC [id number] 09:52:00 Test Item Value Reference Range Interpretation [...] S NOT APPLICABLE FOR DIALYSIS PATIEN TS. [id number] 09:52:00 Test Item Value Reference Range Interpretation Comments PHOSPHORUS (BEAKER) (test code = 2.0 mg/dL 2.3-4.7 L 604) [id number] 09:52:00 Test Item Value Reference Range Interpretation Comments MAGNESIUM (BEAKER) (test code = 2.2 mg/dL 1.6-2.6 627) POCT-GLUCOSE [id number] 09:28:00 Test Item Value Reference Range Interpretation Comments POC-GLUCOSE METER 213 mg/dL 70-110 H TESTED AT [facility] 6720 (BEAKER) (test code = CAROLA Roberson [facility] 1538) 01[address] RAD, ABDOMEN/KUB, 1 VIEW [id number] 09:12:00Reason for exam:->recurrent vomitingShould this be performed at the bedside?->YesFINAL REPORT CLINICAL HISTORY: recurrent vomiting TECHNIQUE: Supine abdomen COMP ARISON: None IMPRESSION: The bowel gas pattern is nonspecific. Free air and air- fluid levels are notseen but cannot be definitively excluded on the supine view. There is a 3 mm phlebolith or stone in the left hemipelvis. Signed: Luis Chung MDReport Verified Date/Time: 10/16/2018 09:12:50 Reading Location: [facility] Reading Room POCT-GLUCOSE [id number] 08:41:00 Test Item Value Reference Range Interpretation Comments POC-GLUCOSE METER 206 mg/dL 70-110 H TESTED AT [facility] 6720 (BEAKER) (test code = CAROLA Roberson [place] 1538) [address] POCT-GLUCOSE [id number] 07:46:00 Test Item Value Reference Range Interpretation Comments POC-GLUCOSE METER 203 mg/dL 70-110 H TESTED AT [facility] 6720 (BEAKER) (test code = CAROLA Roberson [place] 1538) [address] [id number] 07:14:00 Test Item Value Reference Range Interpretation Comments MAGNESIUM (BEAKER) 2.2 mg/dL 1.6-2.6 Specimen slightly (test code = 627) hemolyzed [id number] 07:14:00 Test Item Value Reference Range Interpretation Comments PHOSPHORUS (BEAKER) 2.4 mg/dL 2.3-4.7 Specimen slightly (test code = 604) hemolyzed BASIC METABOLIC [id number] 07:14:00 Test Item Value Reference Range Interpretation [...] APPLICABLE FOR DIALYSIS PATIEN TS. LACTIC ACID, [id number] 06:58:00 Test Item Value Reference Range Interpretation Comments LACTATE BLOOD ARTERIAL (2) 1.0 mmol/L 0.5-2.2 (BEAKER) (test code = 8460) CBC W/PLT COUNT & AUTO [id number] 06:47:00 Test Item Value Reference Range Interpretation [...] (BEAKER) (test code = 2801) HEMOGLOBIN AND [id number] 06:42:00 Test Item Value Reference Range Interpretation Comments HEMOGLOBIN (BEAKER) (test code = 11.2 GM/DL 13.7-17.5 L 410) HEMATOCRIT (BEAKER) (test code = 33.1 % 40.1-51.0 L 411) POCT-GLUCOSE [id number] 06:22:00 Test Item Value Reference Range Interpretation Comments POC-GLUCOSE METER 193 mg/dL 70-110 H TESTED AT [place] [address] ([facility]) (test code = CAROLA Roberson [facility] 1538) [address] POCT-GLUCOSE [id number] 05:31:00 Test Item Value Reference Range Interpretation Comments POC-GLUCOSE METER 185 mg/dL 70-110 H TESTED AT [place] [address] ([facility]) (test code = CAROLA Roberson [facility] 1538) 13137 POCT-GLUCOSE [id number] 04:02:00 Test Item Value Reference Range Interpretation Comments POC-GLUCOSE METER 191 mg/dL 70-110 H TESTED AT [place] [address] ([facility]) (test code = CAROLA Roberson [facility] 1538) [address] POCT-GLUCOSE [id number] 03:08:00 Test Item Value Reference Range Interpretation Comments POC-GLUCOSE METER 170 mg/dL 70-110 H TESTED AT [place] [address] ([facility]) (test code = CAROL[place] Roberson [place] 1538) [address] POCT-GLUCOSE [id number] 02:24:00 Test Item Value Reference Range Interpretation Comments POC-GLUCOSE METER 155 mg/dL 70-110 H TESTED AT [place] [address] ([facility]) (test code = CAROLA Roberson [place] 1538) [address] POCT-GLUCOSE [id number] 01:43:00 Test Item Value Reference Range Interpretation Comments POC-GLUCOSE METER 158 mg/dL 70-110 H TESTED AT [place] [address] (BEAKER) (test code = [place] 153) [address] BASIC METABOLIC [id number] 00:59:00 Test Item Value Reference Range Interpretation [...] S NOT APPLICABLE FOR DIALYSIS PATIEN TS. [id number] 00:58:00 Test Item Value Reference Range Interpretation Comments MAGNESIUM (BEAKER) 2.4 mg/dL 1.6-2.6 Specimen slightly (test code = 627) hemolyzed [id number] 00:58:00 Test Item Value Reference Range Interpretation Comments PHOSPHORUS (BEAKER) 1.6 mg/dL 2.3-4.7 L Specimen slightly (test code = 604) hemolyzed HEMOGLOBIN AND [id number] 00:31:00 Test Item Value Reference Range Interpretation Comments HEMOGLOBIN (BEAKER) (test code = 11.9 GM/DL 13.7-17.5 L 410) HEMATOCRIT (BEAKER) (test code = 34.5 % 40.1-51.0 L 411) POCT-GLUCOSE [id number] 00:30:00 Test Item Value Reference Range Interpretation Comments POC-GLUCOSE METER 188 mg/dL 70-110 H [facility] AT [place] [address] [facility] (test code = CAROLA Roberson [facility] 1538) [address] POCT-GLUCOSE [id number] 23:07:00 Test Item Value Reference Range Interpretation Comments POC-GLUCOSE METER 191 mg/dL 70-110 H TESTED AT [place] [address] [facility] (test code = CAROLA Roberson [facility] 1538) 86298 POCT-GLUCOSE [id number] 22:03:00 Test Item Value Reference Range Interpretation Comments POC-GLUCOSE METER 205 mg/dL 70-110 H TESTED AT [place] [address] ([facility] (test code = CAROLA Roberson [facility] 1538) [address] BASIC METABOLIC [id number] 21:06:00 Test Item Value Reference Range Interpretation [...] APPLICABLE FOR DIALYSIS PATIEN TS. VANCOMYCIN LEVEL, [id number] 21:04:00 Test Item Value Reference Range Interpretation Comments VANCOMYCIN TROUGH (BEAKER) (test 5.8 ug/mL 10.0-20.0 L code = 522) If level is >20, hold scheduled vancomycin dose and contact PharmD/MD. Thank youPOCT-GLUCOSE [id number] 21:00:00 Test Item Value Reference Range Interpretation Comments POC-GLUCOSE METER 202 mg/dL 70-110 H TESTED AT [place] [address] (BEAKER) (test code = CAROLA Roberson [facility] 1538) 9[address]67 POCT-GLUCOSE [id number] 20:08:00 Test Item Value Reference Range Interpretation Comments POC-GLUCOSE METER 180 mg/dL 70-110 H TESTED AT [place] [address] (BEAKER) (test code = CAROLA Roberson [facility] 1538) 6[address]32 POCT-GLUCOSE [id number] 18:39:00 Test Item Value Reference Range Interpretation Comments POC-GLUCOSE METER 175 mg/dL 70-110 H TESTED AT [place] [address] (BEAKER) (test code = [facility] Karol [facility] 1538) [address] POCT-GLUCOSE [id number] 17:22:00 Test Item Value Reference Range Interpretation Comments POC-GLUCOSE METER 209 mg/dL 70-110 H TESTED AT [place] [address] (BEAKER) (test code = [facility] Karol [facility] 1538) 54400 URINALYSIS W/ REFLEX URINE [id number] 16:58:00 Test Item Value Reference Range Interpretation [...] = Rare 1574) SOURCE(BEAKER) (test code = 6124) HEMOGLOBIN AND [id number] 16:36:00 Test Item Value Reference Range Interpretation Comments HEMOGLOBIN (BEAKER) (test code = 13.0 GM/DL 13.7-17.5 L 410) HEMATOCRIT (BEAKER) (test code = 37.3 % 40.1-51.0 L 411) POCT-GLUCOSE [id number] 16:20:00 Test Item Value Reference Range Interpretation Comments POC-GLUCOSE METER 217 mg/dL 70-110 H TESTED AT [facility] 6720 (BEAKER) (test code = CAROLA Roberson [place] 1538) [address] BASIC METABOLIC [id number] 16:19:00 Test Item Value Reference Range Interpretation [...] S NOT APPLICABLE FOR DIALYSIS PATIEN TS. [id number] 16:15:00 Test Item Value Reference Range Interpretation Comments PHOSPHORUS (BEAKER) (test code = 3.4 mg/dL 2.3-4.7 604) [id number] 16:15:00 Test Item Value Reference Range Interpretation Comments MAGNESIUM (BEAKER) (test code = 2.1 mg/dL 1.6-2.6 627) POCT-GLUCOSE [id number] 15:13:00 Test Item Value Reference Range Interpretation Comments POC-GLUCOSE METER 205 mg/dL 70-110 H TESTED AT [facility] 6720 (BEAKER) (test code = CAROLA Roberson [place] 1538) [address] POCT-GLUCOSE [id number] 14:17:00 Test Item Value Reference Range Interpretation Comments POC-GLUCOSE METER 154 mg/dL 70-110 H TESTED AT [facility] 6720 (BEAKER) (test code = CAROLA Roberson [facility] 1538) [address]28 POCT-GLUCOSE [id number] 13:34:00 Test Item Value Reference Range Interpretation Comments POC-GLUCOSE METER 144 mg/dL 70-110 H TESTED AT [place] [address] (BEAKER) (test code = CAROLA Roberson [facility] 1538) 926[address] BASIC METABOLIC [id number] 12:52:00 Test Item Value Reference Range Interpretation [...] S NOT APPLICABLE FOR DIALYSIS PATIEN TS. [id number] 12:45:00 Test Item Value Reference Range Interpretation Comments PHOSPHORUS (BEAKER) (test code = 1.8 mg/dL 2.3-4.7 L 604) [id number] 12:45:00 Test Item Value Reference Range Interpretation Comments MAGNESIUM (BEAKER) (test code = 2.4 mg/dL 1.6-2.6 627) BLOOD GAS, [id number] 12:26:00 Test Item Value Reference Range Interpretation [...] code = 1819) 21.0 % HEMOGLOBIN AND [id number] 12:24:00 Test Item Value Reference Range Interpretation Comments HEMOGLOBIN (BEAKER) (test code = 11.9 GM/DL 13.7-17.5 L 410) HEMATOCRIT (BEAKER) (test code = 34.2 % 40.1-51.0 L 411) POCT-GLUCOSE [id number] 12:23:00 Test Item Value Reference Range Interpretation Comments POC-GLUCOSE METER 170 mg/dL 70-110 H TESTED AT [place] [address] (BEAKER) (test code = [place] 1538) [address] POCT-GLUCOSE [id number] 10:54:00 Test Item Value Reference Range Interpretation Comments POC-GLUCOSE METER 182 mg/dL 70-110 H TESTED AT [place] [address] (BEAKER) (test code = [place] 1538) [address] BASIC METABOLIC [id number] 09:55:00 Test Item Value Reference Range Interpretation [...] NOT APPLICABLE FOR DIALYSIS PATIEN TS. POCT-GLUCOSE [id number] 09:44:00 Test Item Value Reference Range Interpretation Comments POC-GLUCOSE METER 217 mg/dL 70-110 H TESTED AT [facility] 67 (BEAKER) (test code = [facility] [place] 1538) [address] BLOOD GAS, [id number] 08:28:00 Test Item Value Reference Range Interpretation [...] (test code = 1819) 21.0 % POCT-GLUCOSE [id number] 08:24:00 Test Item Value Reference Range Interpretation Comments POC-GLUCOSE METER 207 mg/dL 70-110 H TESTED AT [facility] 6720 (BEAKER) (test code = [facility] [place] 1538) 0[address] POCT-GLUCOSE [id number] 06:39:00 Test Item Value Reference Range Interpretation Comments POC-GLUCOSE METER 203 mg/dL 70-110 H TESTED AT [place] [address] (BEAKER) (test code = [facility] [place] 1538) [address] BASIC METABOLIC [id number] 06:37:00 Test Item Value Reference Range Interpretation [...] NOT APPLICABLE FOR DIALYSIS PATIEN TS. POCT-GLUCOSE [id number] 05:26:00 Test Item Value Reference Range Interpretation Comments POC-GLUCOSE METER 253 mg/dL 70-110 H TESTED AT [facility] 6720 (BEAKER) (test code = [place] 1538) [address] BASIC METABOLIC [id number] 05:07:00 Test Item Value Reference Range Interpretation [...] S NOT APPLICABLE FOR DIALYSIS PATIEN TS. [id number] 05:07:00 Test Item Value Reference Range Interpretation Comments MAGNESIUM (BEAKER) (test code = 2.0 mg/dL 1.6-2.6 627) [id number] 05:07:00 Test Item Value Reference Range Interpretation Comments PHOSPHORUS (BEAKER) (test code = 2.8 mg/dL 2.3-4.7 604) BLOOD GAS, [id number] 05:01:00 Test Item Value Reference Range Interpretation [...] code = 1819) 21.0 % LACTIC ACID, [id number] 04:58:00 Test Item Value Reference Range Interpretation Comments LACTATE BLOOD ARTERIAL (2) 0.6 mmol/L 0.5-2.2 (BEAKER) (test code = 2874) CBC W/PLT COUNT & AUTO [id number] 04:57:00 Test Item Value Reference Range Interpretation [...] PERCENT (BEAKER) (test code = 2801) POCT-GLUCOSE [id number] 04:20:00 Test Item Value Reference Range Interpretation Comments POC-GLUCOSE METER 220 mg/dL 70-110 H TESTED AT [facility] 6720 [facility] ([facility] 1538) [address] POCT-GLUCOSE [id number] 03:44:00 Test Item Value Reference Range Interpretation Comments POC-GLUCOSE METER 243 mg/dL 70-110 H TESTED AT [facility] 6720 ([facility] (test code = CAROLA Roberson [facility] 1538) 29001 POCT-GLUCOSE [id number] 03:06:00 Test Item Value Reference Range Interpretation Comments POC-GLUCOSE METER 196 mg/dL 70-110 H TESTED AT [facility] 6720 ([facility] (test code = CAROLA Roberson [facility] 1538) 15094 TROPONIN [id number] 03:00:00 Test Item Value Reference Range Interpretation [...] acute neurological disease, and persistent tachyarrhythmia.BASIC METABOLIC [id number] 02:57:00 Test Item Value Reference Range Interpretation [...] NOT APPLICABLE FOR DIALYSIS PATIEN TS. POCT-GLUCOSE [id number] 01:21:00 Test Item Value Reference Range Interpretation Comments POC-GLUCOSE METER 195 mg/dL 70-110 H TESTED AT [facility] 6720 ([facility] (test code = CARLOSMS R [facility] 7849) 00938 TROPONIN [id number] 00:47:00 Test Item Value Reference Range Interpretation [...] failure, acidosis, acute neurological disease, and persistent tachyarrhythmia.[id number] 00:44:00 Test Item Value Reference Range Interpretation Comments PHOSPHORUS (BEAKER) (test code = 1.4 mg/dL 2.3-4.7 LL 604) BLOOD GAS, [id number] 00:41:00 Test Item Value Reference Range Interpretation [...] code = 1819) 21.0 % BASIC METABOLIC [id number] 00:40:00 Test Item Value Reference Range Interpretation [...] S NOT APPLICABLE FOR DIALYSIS PATIEN TS. [id number] 00:40:00 Test Item Value Reference Range Interpretation Comments MAGNESIUM (BEAKER) (test code = 2.1 mg/dL 1.6-2.6 627) HEMOGLOBIN AND [id number] 00:21:00 Test Item Value Reference Range Interpretation Comments HEMOGLOBIN (BEAKER) (test code = 12.3 GM/DL 13.7-17.5 L 410) HEMATOCRIT (BEAKER) (test code = 34.9 % 40.1-51.0 L 411) POCT-GLUCOSE [id number] 00:09:00 Test Item Value Reference Range Interpretation Comments POC-GLUCOSE METER 234 mg/dL 70-110 H TESTED AT [facility] 6720 ([facility]) (test code = CAROLA Roberson [place] 1538) [address] STREP PNEUMONIAE [id number] 00:07:00 Test Item Value Reference Range Interpretation Comments STREP PNEUMONIAE Presumptive negative Presumptive negative ANTIGEN ([place]) for pneumococcal for pneumococcal (test code = 1615) pneumonia - see pneumonia - see comment commen Presumptive negative for pneumococcal pneumonia, suggesting no current or recent pneumococcal infection. Infection due to S. pneumoniae cannot be ruled out since the antigen present in the sample may be below the detection limit of the test. LEGIONELLA ANTIGEN, [id number] 00:07:00 Test Item Value Reference Range Interpretation Comments L. PNEUMOPHILA Negative - see Negative fo r L. SEROGP 1 UR AG comment pneumophila ([place]) (test code serogrou p 1 antigen, = 1156) suggesting no r ecent or current infe ction with this serog roup. Legionellosis c annot be ruled out si nce other serogroup s and species may cau se disease. POCT-GLUCOSE [id number] 23:15:00 Test Item Value Reference Range Interpretation Comments POC-GLUCOSE METER 247 mg/dL 70-110 H TESTED AT [facility] 6720 (BEAKER) (test code = [place] 1536) [address] BASIC METABOLIC [id number] 23:09:00 Test Item Value Reference Range Interpretation [...] APPLICABLE FOR DIALYSIS PATIEN TS. BLOOD GAS, [id number] 22:52:00 Test Item Value Reference Range Interpretation [...] (test code = 1819) 21.0 % POCT-GLUCOSE [id number] 22:25:00 Test Item Value Reference Range Interpretation Comments POC-GLUCOSE METER 270 mg/dL 70-110 H TESTED AT [facility] 67 (BEAKER) (test code = CAROLA Roberson [place] 1538) [address] POCT-GLUCOSE [id number] 21:28:00 Test Item Value Reference Range Interpretation Comments POC-GLUCOSE METER 312 mg/dL 70-110 H TESTED AT [place] 1412720 (BEAKER) (test code = CAROLA Roberson [place] 1538) [address]333 LACTIC ACID, [id number] 20:58:00 Test Item Value Reference Range Interpretation Comments LACTATE BLOOD ARTERIAL (2) 1.7 mmol/L 0.5-2.2 (BEAKER) (test code = 2874) BASIC METABOLIC [id number] 20:51:00 Test Item Value Reference Range Interpretation [...] NOT APPLICABLE FOR DIALYSIS PATIEN TS. POCT-GLUCOSE [id number] 20:37:00 Test Item Value Reference Range Interpretation Comments POC-GLUCOSE METER 334 mg/dL 70-110 H TESTED AT [facility] 6720 ([facility] (test code = CAROLA Roberson [place] 1538) [address] RAD, CHEST, 1 VIEW, NON [id number] 20:13:00Post-intubationReason for exam:- >r/o pnaShould this be performed at the bedside?->YesFINAL REPORT History: "Rule out pneumonia". Comparison: None. Findings: A single view of the chest is submitted. The cardiomediastinal contours are unremarkable. There is no focal consolidation, pneumothorax, large pleural effusion or evidence of overt pulmonary edema. There is noacute bony abnormality. Impression: No acute abnormality. Signed: Anand Vora MDReport Verified Dimitri e/Time: 10/14/2018 20:13:51 Reading Location: [address] Reading Room POCT- GLUCOSE [id number] 19:39:00 Test Item Value Reference Range Interpretation Comments POC-GLUCOSE METER 432 mg/dL 70-110 HH TESTED AT [facility] 6720 ([facility]) (test code = [place] 1538) [address] HEMOGLOBIN [id number] 19:16:00 Test Item Value Reference Range Interpretation Comments HEMOGLOBIN A1C ([facility]) (test code = 10.2 % 4.3-6.1 H 368) [id number] 18:52:00 Test Item Value Reference Range Interpretation Comments PROCALCITONIN ([facility]) (test code 5.14 ng/mL <0.05 H = 3036) SEPSIS RISK (ng/mL)Low: 0.05-0.50Intermediate: 0.51-2.00High: >=2.01CBC W/PLT COUNT & AUTO [id number] 18:37:00 Test Item Value Reference Range Interpretation Comments WHITE BLOOD CELL COUNT ([facility]) 24.9 K/ L 3.5-10.5 H (test code = 775) RED BLOOD CELL COUNT ([facility]) 4.23 M/ L 4.63-6.08 L (test code = 761) [facility] (test code = 13.0 GM/DL 13.7-17.5 L 410) HEMATOCRIT ([facility]) (test code = 38.1 % 40.1-51.0 L 411) MEAN CORPUSCULAR VOLUME ([facility]) 90.1 fL 79.0-92.2 (test code = 753) [...] (BEAKER) (test code = 2801) BASIC METABOLIC [id number] 18:29:00 Test Item Value Reference Range Interpretation [...] APPLICABLE FOR DIALYSIS PATIEN TS. HEPATIC FUNCTION [id number] 18:29:00 Test Item Value Reference Range Interpretation [...] = 23 U/L 6-55 347) LACTIC ACID, [id number] 18:24:00 Test Item Value Reference Range Interpretation Comments LACTATE BLOOD ARTERIAL (2) 3.0 mmol/L 0.5-2.2 H (BEAKER) (test code = 2874) BLOOD GAS, [id number] 17:52:00 Test Item Value Reference Range Interpretation [...] 21.0 % CBC W/PLT COUNT & AUTO [id number] 17:50:00 Test Item Value Reference Range Interpretation [...] 3438) Received comment: User comments: Slide comments:POCT-GLUCOSE [id number] 17:49:00 Test Item Value Reference Range Interpretation Comments POC-GLUCOSE METER > mg/dL 70-110 HH OUTSIDE ME ASURING (BEAKER) (test code RANGETES GUNNAR AT [facility] 6720 = 1538) [facility] [address] KETONE, [id number] 17:13:00 Test Item Value Reference Range Interpretation Comments KETONES, BLOOD (BEAKER) (test code 5.4 mmol/L <0.4 H = 1103) TSH/FREE T4 IF [id number] 17:10:00 Test Item Value Reference Range Interpretation Comments THYROID STIMULATING HORMONE 0.64 uIU/mL 0.35-4.94 (BEAKER) (test code = 772) BASIC METABOLIC [id number] 16:57:00 Test Item Value Reference Range Interpretation [...] NOT APPLICABLE FOR DIALYSIS PATIEN TS. TROPONIN [id number] 16:56:00 Test Item Value Reference Range Interpretation [...] failure, acidosis, acute neurological disease, and persistent tachyarrhythmia.[id number] 16:50:00 Test Item Value Reference Range Interpretation Comments MAGNESIUM (BEAKER) 2.4 mg/dL 1.6-2.6 Specimen slightly (test code = 627) hemolyzed [id number] 16:50:00 Test Item Value Reference Range Interpretation Comments PHOSPHORUS (BEAKER) 5.6 mg/dL 2.3-4.7 H Specimen slightly (test code = 604) hemolyzed [id number] 16:50:00 Test Item Value Reference Range Interpretation Comments AMYLASE (BEAKER) (test 47 U/L 25-125 Speci men slightly code = 349) hemolyzed [id number] 16:50:00 Test Item Value Reference Range Interpretation Comments LIPASE (BEAKER) (test code = 749) 199 U/L 8-78 H PROTHROMBIN [id number] 16:47:00 Test Item Value Reference Range Interpretation Comments PROTIME (BEAKER) (test code = 15.5 seconds 11.9-14.2 H 759) INR (BEAKER) (test code = 370) 1.3 <=5.9 Effective 09/19/2018: PT Reference Range ChangeNew: 11.9-14.2 Previous: 11.7- 14.7RECOMMENDED COUMADIN/WARFARIN INR THERAPY RANGESSTANDARD DOSE: 2.0-3.0 Includes: PROPHYLAXIS for venous thrombosis, systemic embolization; TREATMENT for venous thrombosis and/or pulmonary embolus.HIGH RISK: Target INR is 2.5-3.5 for patients wiht mechanical heart valves.[id number] 16:47:00 Test Item Value Reference Range Interpretation Comments PARTIAL THROMBOPLASTIN TIME 23.5 seconds 22.5-36.0 (BEAKER) (test code = 760) [id number] 16:47:00 Test Item Value Reference Range Interpretation Comments FIBRINOGEN LEVEL (BEAKER) (test 284 mg/dl 225-434 code = 658) LACTIC ACID, [id number] 16:44:00 Test Item Value Reference Range Interpretation Comments LACTATE BLOOD VENOUS 4.2 mmol/L 0.5-2.2 H Specime n slightly (2) (BEAKER) (test hemolyzed code = 8551) HEMOGLOBIN AND [id number] 16:34:00 Test Item Value Reference Range Interpretation Comments HEMOGLOBIN (BEAKER) (test code = 14.5 GM/DL 13.7-17.5 410) HEMATOCRIT (BEAKER) (test code = 42.9 % 40.1-51.0 411) POTASSIUM-STAT [id number] 16:21:00 Test Item Value Reference Range Interpretation Comments POTASSIUM (BEAKER) (test code = 7.0 meq/L 3.6-5.5 HH 379) GLUCOSE-STAT [id number] 16:21:00 Test Item Value Reference Range Interpretation Comments GLUCOSE RANDOM (BEAKER) (test code 650 mg/dL 70-110 HH = 652) BLOOD GAS, [id number] 16:21:00 Test Item Value Reference Range Interpretation [...] code = 1819) 21.0 % SODIUM NA-STAT [id number] 16:15:00 Test Item Value Reference Range Interpretation Comments SODIUM (BEAKER) (test code = 381) 142 meq/L 135-148 HGB/HCT (H&H) - STAT [id number] 16:15:00 Test Item Value Reference Range Interpretation Comments HEMOGLOBIN (BEAKER) (test code = 14.8 g/dL 13.0-16.8 410) HEMATOCRIT (BEAKER) (test code = 44.0 % 40.0-50.0 411) POCT-GLUCOSE [id number] 15:42:00 Test Item Value Reference Range Interpretation Comments POC-GLUCOSE METER > mg/dL 70-110 HH OUTSIDE ME ASURING (BEAKER) (test code RANGENot ified YVONNE MD/TESTED = 1538) AT [facility] [address] [facility] [place] [address]
[2022-02-08 23:26] LABS: Absolute Lymphocytes (CBC) 1.3 K/uL (0.7-4.9); Hematocrit 31.7 % (39.6-49.0); Lymphocytes % 20.1 % (15.3-44.8); MCV 84.1 fL (80-100); MPV 6.6 fL (7.6-11.3); RBC Red Blood Cell Count 3.76 M/uL (4.33-5.43)
[2022-02-08] MEDS ORDERED: ONDANSETRON 4 MG/2 ML VIAL ONE (23:31)
[2022-02-08] MEDS ORDERED: VANCOMYCIN 1 GM/VIAL ONE (23:31)
[2022-02-08] MEDS ORDERED: VANCOMYCIN 500 MG/VIAL ONE (23:31)
[2022-02-08] MEDS ORDERED: MORPHINE 4 MG/ML SYR ONE (23:31)
--- NOTE | 2022-02-08 23:31 | RAD REPORT ---
EXAM DESCRIPTION: RAD - Foot Right 3 View - 02/08/2022 11:22 pm CLINICAL HISTORY: Right foot pain FINDINGS: Mildly displaced fracture involves the distal aspect of the first proximal phalanx which e xtends intra-articularly. This appears subacute Lucency is present within the base of the first distal phalanx. This is suspicious for osteomyelitis. There is an adjacent soft tissue ulceration. No dislocation
[2022-02-08] MEDS ORDERED: NA CHLORIDE 0.9% 500 ML ONE (23:32)
[2022-02-08 23:33] LABS: Protime INR 1.01
--- NOTE | 2022-02-08 23:37 | RAD REPORT ---
EXAM DESCRIPTION: USExtremcarlo Venous Uni Ltd02/08/2022 11:30 pm CLINICAL HISTORY: Right leg swelling. COMPARISON: None. FINDINGS: Right common femoral, superficial femoral, popliteal and right posterior tibial veins are compressible and demonstrate augmentation. Doppler demonstrates good flow. Grayscale, color and spectral analysis performed on all vessels IMPRESSION: No evidence of deep venous thrombosis involving the right lower extremity.
[2022-02-08 23:44] LABS: Albumin 3.2 g/dL (3.4-5.0); Bilirubin Total 0.7 mg/dL (0.2-1.0); Potassium 4.5 mmol/L (3.5-5.1); Protein, Total 8.1 g/dL (6.4-8.2)
--- NOTE | 2022-02-08 23:48 | EDPHYS ---
Physician Documentation [facility] Name: Enio Bradley Age: 31 yrs Sex: Male : 1990 Arrival Date: 02/08/2022 Time: 21:30 Bed 17 Private MD: HERNAN Physician Reece Hebert HPI: 02/08 23:08 This 31 yrs old Male presents to ER via Ambulatory with complaints of Feet Swelling, snw Leg Swelling. 23:08 The patient presents with pain, swelling. The complaints affect the right foot. snw Context: The problem was sustained at home, resulted from a chronic condition, the patient can partially bear weight. Onset: The symptoms/episode began/occurred acutely. Modifying factors: The symptoms are alleviated by nothing, the symptoms are aggravated by movement, wearing shoes. Associated signs and symptoms: Pertinent positives: swelling, warmth, redness to greater area of toe, foot, and ankle. Severity of symptoms: At their worst the symptoms were moderate, severe. The patient has experienced similar episodes in the past. Pt sees Dr. Pendleton in [place] for IDDM. Pt has been seeing Dr. Dalton for bilateral great toe ulcers. On Bactrim x 10 days. Pt traveled for work over the past week. Right great toe with increased edema, tenderness, and erythema. FSBS have been a bit higher but still under 250mg/dl. Historical: - Allergies: 22:00 Clindamycin; kb3 - Home Meds: 22:00 Novolog Flexpen subcutaneous [Active]; Tresiba FlexTouch U-100 subcutaneous [Active]; kb3 Bactrim DS 800-160 mg Oral tab 1 tab every 12 hours [Active]; - PMHx: 22:00 ADD/ADHD; Diabetes - IDDM; kb3 - PSHx: 22:00 None; kb3 - Immunization history:: Adult Immunizations up to date, Client reports having NOT received the Covid vaccine. Last tetanus immunization: up to date. - Social history:: Smoking status: Patient reports use of chewing tobacco. ROS: 23:12 Constitutional: Negative for fever, chills, and weight loss, Eyes: Negative for injury, snw pain, redness, and discharge, ENT: Negative for injury, pain, and discharge, Neck: Negative for injury, pain, and swelling, Cardiovascular: Negative for chest pain, palpitations, and edema, Respiratory: Negative for shortness of breath, cough, wheezing, and pleuritic chest pain, Abdomen/GI: Negative for abdominal pain, nausea, vomiting, diarrhea, and constipation, Back: Negative for injury and pain, : Negative for injury, bleeding, discharge, and swelling, Skin: Negative for injury, rash, and discoloration, Neuro: Negative for headache, weakness, numbness, tingling, and seizure. 23:12 MS/extremity: Positive for erythema, pain, swelling, tenderness, of the right foot, worse over the past week . Exam: 23:11 Constitutional: This is a well developed, well nourished patient who is awake, alert, snw and in no acute distress. Head/Face: Normocephalic, atraumatic. Eyes: Pupils equal round and reactive to light, extra-ocular motions intact. Lids and lashes normal. Conjunctiva and sclera are non-icteric and not injected. Cornea within normal limits. Periorbital areas with no swelling, redness, or edema. ENT: Nares patent. No nasal discharge, no septal abnormalities noted. Tympanic membranes are normal and external auditory canals are clear. Oropharynx with no redness, swelling, or masses, exudates, or evidence of obstruction, uvula midline. Mucous membranes moist. Neck: Trachea midline, no thyromegaly or masses palpated, and no cervical lymphadenopathy. Supple, full range of motion without nuchal rigidity, or vertebral point tenderness. No Meningismus. Chest/axilla: Normal chest wall appearance and motion. Nontender with no deformity. No lesions are appreciated. Cardiovascular: Regular rate and rhythm with a normal S1 and S2. No gallops, murmurs, or rubs. Normal PMI, no JVD. No pulse deficits. Respiratory: Lungs have equal breath sounds bilaterally, clear to auscultation and percussion. No rales, rhonchi or wheezes noted. No increased work of breathing, no retractions or nasal flaring. Abdomen/GI: Soft, non-tender, with normal bowel sounds. No distension or tympany. No guarding or rebound. No evidence of tenderness throughout. Back: No spinal tenderness. No costovertebral tenderness. Full range of motion. 23:11 Skin: Appearance: normal except for affected area, lesion(s), noted, and can be described as ulcerated, diabetic great toe wounds to bilateral great toes. Right toe with fusiform edema, erythema, edema extends up to mid calf. Vital Signs: 21:56 BP 136 / 90; Pulse 99; Resp 20; Temp 98.0; Weight 86.18 kg; Height 5 ft. 11 in. (180.34 kb3 cm); Pain 6/10; 02/09 00:01 BP 119 / 74; Pulse 86; Resp 19; Pulse Ox 100% ; Pain 0/10; jj7 00:30 BP 108 / 63; Pulse 84; Resp 16 S; Pulse Ox 99% on R/A; aa9 01:30 BP 118 / 74; Pulse 79; Resp 16 S; Pulse Ox 97% on R/A; aa9 02:30 BP 113 / 69; Pulse 79; Resp 16 S; Pulse Ox 98% on R/A; aa9 03:30 BP 110 / 73; Pulse 79; Resp 16 S; Pulse Ox 98% on R/A; aa9 04:30 BP 118 / 79; Pulse 82; Resp 15 S; Pulse Ox 98% on R/A; aa9 05:30 BP 117 / 73; Pulse 80; Resp 16 S; Pulse Ox 98% on R/A; aa9 06:30 BP 138 / 90; Pulse 79; Resp 18 S; Pulse Ox 99% on R/A; Pain 0/10; aa9 02/08 21:56 Body Mass Index 26.50 (86.18 kg, 180.34 cm) kb3 MDM: 02/08 22:13 Patient medically screened. snw 23:13 Data reviewed: vital signs, nurses notes. Counseling: I had a detailed discussion with snw the patient and/or guardian regarding: the historical points, exam findings, and any diagnostic results supporting the discharge/admit diagnosis, the presence of at least one elevated blood pressure reading (>120/80) during this emergency department visit, the need for further work-up and treatment in the hospital. Physician consultation: Etelvina Valenzuela PA-C regarding patient's condition. Awaiting: labs results. 02/08 22:45 Order name: Blood Culture Adult (2) snw 02/08 22:45 Order name: CBC with Diff; Complete Time: 23:47 snw 02/08 22:45 Order name: CMP; Complete Time: 23:46 snw 02/08 22:45 Order name: Lactate; Complete Time: 23:46 snw 02/08 22:45 Order name: Protime (+inr); Complete Time: 23:33 snw 02/08 22:45 Order name: Ptt, Activated; Complete Time: 23:33 snw 02/08 22:45 Order name: Wound Culture snw 02/08 22:45 Order name: Sed Rate; Complete Time: 23:47 snw 02/08 22:52 Order name: SARS RAPID; Complete Time: 00:20 snw 02/09 00:37 Order name: Glucose, Ancillary Testing; Complete Time: 00:38 EDMS 02/09 02:36 Order name: CBC with Automated Diff; Complete Time: 03:12 EDMS 02/09 03:11 Order name: Basic Metabolic Panel; Complete Time: 03:12 EDMS 02/09 03:11 Order name: Phosphorus; Complete Time: 03:12 EDMS 02/09 03:11 Order name: Magnesium; Complete Time: 03:12 EDMS 02/08 22:45 Order name: Accucheck; Complete Time: 00:56 snw 02/08 22:45 Order name: Cardiac monitoring; Complete Time: 00:56 snw 02/08 22:45 Order name: EKG - Nurse/Tech; Complete Time: 00:56 snw 02/08 22:45 Order name: IV Saline Lock - Large Bore; Complete Time: 23:20 snw 02/08 22:45 Order name: Labs collected and sent; Complete Time: 23:20 snw 02/08 22:45 Order name: O2 Per Protocol; Complete Time: 23:20 snw 02/08 22:45 Order name: O2 Sat Monitoring; Complete Time: 23:20 snw 02/08 22:45 Order name: Vital Signs; Complete Time: 00:00 snw 02/08 22:45 Order name: US Extremity Venous Unilateral Ltd; Complete Time: 23:40 snw 02/08 22:45 Order name: Foot Right 3 View XRAY; Complete Time: 23:33 snw 02/09 03:30 Order name: Hemoglobin A1c; Complete Time: 03:40 EDMS 02/09 06:43 Order name: Glucose, Ancillary Testing EDMS 02/09 10:50 Order name: Glucose, Ancillary Testing EDMS EC/19 00:08 Rate is 86 beats/min. Rhythm is regular. QRS Ayer is Normal. SC interval is normal. QRS snw interval is normal. QT interval is normal. Clinical impression: Normal ECG. Administered Medications: 02/08 23:50 Drug: morphine 4 mg Route: IVP; Infused Over: 4 mins; Site: right antecubital; jj7 02/09 00:04 Follow up: Response: Pain is decreased [facility] 02/08 23:50 Drug: Zofran (Ondansetron) 4 mg Route: IVP; Site: right antecubital; j7 23:51 Drug: vancoMYCIN 1.5 grams Route: IVPB; Rate: calculated rate; Site: right antecubital; 7 02/09 02:30 Follow up: Response: No adverse reaction; IV Status: Completed infusion; IV Intake: aa9 200ml Disposition Summary: 02/08/22 23:47 Hospitalization Ordered Hospitalization Status: Inpatient Admission snw Provider: Bradley Molina snw Condition: Stable snw Problem: new snw Symptoms: are unchanged snw Bed/Room Type: Standard snw Location: [facility] ER HOLD(02/09/22 00:06) cg Room Assignment: ERHOLD-(02/09/22 00:06) cg Diagnosis - Personal history of diabetic foot ulcer snw - Osteomyelitis, unspecified snw Forms: - Medication Reconciliation Form snw - SBAR form snw Addendum: 02/12/2022 06:57 Co-signature as Attending Physician, Reece Hebert MD. r n Signatures: Dispatcher [employer] EDMS Sierra Joshi, ROW BOSS-C ROW BOSS-Csnw Reece Hebert MD MD rn Garcia, Cindy, RN RN Char Padron RN RN kb3 Sridevi Kelly RN RN Etelvina Davis PA-C PAMamie noble4 Juanita Marks RN aa9 Corrections: (The following items were deleted from the chart) 02/09 00:06 02/08 23:47 Telemetry/MedSurg (Inpatient) snw cg 02/09 00:06 02/08 23:47 snw cg
--- NOTE | 2022-02-08 23:48 | ER ---
Nurse's Notes [facility] Name: Enio Bradley Age: 31 yrs Sex: Male : 1990 Arrival Date: 02/08/2022 Time: 21:30 Bed 17 Private MD: Diagnosis: Personal history of diabetic foot ulcer;Osteomyelitis, unspecified Presentation: 02/08 21:56 Chief complaint: Patient states: Pt reports he is IDDM and has wounds on both great kb3 toes that are being treated by [employer]. Reports last visit was last week and MD reported that wounds are improving. Pt states right foot has progressively gotten more swollen and painful over the last 3 days. Coronavirus screen: Vaccine status: Patient reports being unvaccinated. Client denies travel out of the [place] in the last 14 days. Ebola Screen: Patient negative for fever greater than or equal to 101.5 degrees Fahrenheit, and additional compatible Ebola Virus Disease symptoms Patient denies exposure to infectious person. Patient denies travel to an Ebola-affected area in the 21 days before illness onset. No symptoms or risks identified at this time. Initial Sepsis Screen: Does the patient meet any 2 criteria? No. Patient's initial sepsis screen is negative. Does the patient have a suspected source of infection? No. Patient's initial sepsis screen is negative. Risk Assessment: Do you want to hurt yourself or someone else? Patient reports no desire to harm self or others. Onset of symptoms was February 05, 2022. 21:56 Method Of Arrival: Ambulatory 3 21:56 Acuity: JAMAL 3 kb3 Triage Assessment: 22:00 General: Appears in no apparent distress. Behavior is calm, cooperative. Pain: kb3 Complains of pain in dorsum of right foot and right first toe Pain does not radiate. Pain currently is 6 out of 10 on a pain scale. Quality of pain is described as pressure, sharp, Pain began 2-3 days ago. Historical: - Allergies: 22:00 Clindamycin; kb3 - Home Meds: 22:00 Novolog Flexpen subcutaneous [Active]; Tresiba FlexTouch U-100 subcutaneous [Active]; kb3 Bactrim DS 800-160 mg Oral tab 1 tab every 12 hours [Active]; - PMHx: 22:00 ADD/ADHD; Diabetes - IDDM; kb3 - PSHx: 22:00 None; kb3 - Immunization history:: Adult Immunizations up to date, Client reports having NOT received the Covid vaccine. Last tetanus immunization: up to date. - Social history:: Smoking status: Patient reports use of chewing tobacco. Screenin:29 Abuse screen: Denies threats or abuse. Nutritional screening: No deficits noted. jj7 Tuberculosis screening: No symptoms or risk factors identified. Fall Risk None identified. Assessment: 22:29 General: Appears in no apparent distress. uncomfortable, well groomed, Behavior is jj7 calm, cooperative, appropriate for age. Derm: Reports pain that is 6 out of 10 on a pain scale. OPEN WOUND TO RIGHT GREAT TOE WITH ODOR INCREASED SWELLING AND EXUDATE. Vital Signs: 21:56 BP 136 / 90; Pulse 99; Resp 20; Temp 98.0; Weight 86.18 kg; Height 5 ft. 11 in. (180.34 kb3 cm); Pain 6/10; 02/09 00:01 BP 119 / 74; Pulse 86; Resp 19; Pulse Ox 100% ; Pain 0/10; jj7 00:30 BP 108 / 63; Pulse 84; Resp 16 S; Pulse Ox 99% on R/A; aa9 01:30 BP 118 / 74; Pulse 79; Resp 16 S; Pulse Ox 97% on R/A; aa9 02:30 BP 113 / 69; Pulse 79; Resp 16 S; Pulse Ox 98% on R/A; aa9 03:30 BP 110 / 73; Pulse 79; Resp 16 S; Pulse Ox 98% on R/A; aa9 04:30 BP 118 / 79; Pulse 82; Resp 15 S; Pulse Ox 98% on R/A; aa9 05:30 BP 117 / 73; Pulse 80; Resp 16 S; Pulse Ox 98% on R/A; aa9 06:30 BP 138 / 90; Pulse 79; Resp 18 S; Pulse Ox 99% on R/A; Pain 0/10; aa9 02/08 21:56 Body Mass Index 26.50 (86.18 kg, 180.34 cm) kb3 ED Course: 02/08 21:30 Patient arrived in ED. jaErica 21:37 Sierra Joshi FNP-C [facility] snw 21:37 Reece Hebert MD is Attending Physician. snw 22:00 Triage completed. kb3 22:00 Arm band placed on right wrist. kb3 22:25 Sridevi Kelly RN is Primary Nurse. jj7 22:29 Patient has correct armband on for positive identification. Bed in low position. Call j7 light in reach. 23:05 Inserted saline lock: 20 gauge in right antecubital area, using aseptic technique. jj7 Blood collected. 23:19 Ptt, Activated Sent. jj7 23:19 Protime (+inr) Sent. jj7 23:19 Lactate Sent. jj7 23:19 CMP Sent. jj7 23:19 CBC with Diff Sent. jj7 23:20 Blood Culture Adult (2) Sent. jj7 23:22 Wound Culture Sent. jj7 23:22 Sed Rate Sent. jj7 23:24 Foot Right 3 View XRAY In Process Unspecified. EDMS 23:31 US Extremity Venous Unilateral Ltd In Process Unspecified. EDMS 23:47 Bradley Molina MD is Hospitalizing Provider. snw 23:51 SARS RAPID Sent. jj7 02/09 00:00 Patient admitted, IV remains in place. aa9 00:52 No provider procedures requiring assistance completed. aa9 09:15 Primary Nurse role handed off by Sridevi Kelly RN bd 10:32 Aranza Medrano, YVONNE is Primary Nurse. ph Administered Medications: 02/08 23:50 Drug: morphine 4 mg Route: IVP; Infused Over: 4 mins; Site: right antecubital; jj7 02/09 00:04 Follow up: Response: Pain is decreased j7 02/08 23:50 Drug: Zofran (Ondansetron) 4 mg Route: IVP; Site: right antecubital; jj7 23:51 Drug: vancoMYCIN 1.5 grams Route: IVPB; Rate: calculated rate; Site: right antecubital; j7 02/09 02:30 Follow up: Response: No adverse reaction; IV Status: Completed infusion; IV Intake: aa9 200ml Medication: 02/08 22:29 VIS not applicable for this client. jj7 Intake: 02/09 02:30 IV: 200ml; Total: 200ml. aa9 Outcome: 02/08 23:47 Decision to Hospitalize by Provider. snw 23:47 Condition: stable aa9 23:47 Admitted to ER Hold. Please see [facility] for further documentation. aa9 23:47 Instructed on the need for admit. 02/09 13:09 Patient left the ED. ph Signatures: Dispatcher [employer] EDMS Yadi Prabhakar Shelly, CREDIT AUTHORIZER-C CREDIT AUTHORIZER-Csnw Aranza Medrano RN RN Dominga Perkins Aylin RN RN aa9 Char Carver, RN RN kb3 Sridevi Kelly RN RN jj7
--- NOTE | 2022-02-09 00:06 | P.HP ---
Certification for Inpatient Patient admitted to: Inpatient With expected LOS: >2 Midnights Patient will require the following post-hospital care: None Practitioner: I am a practitioner with admitting privileges, knowledge of patient current condition, hospital course, and medical plan of care. Services: Services provided to patient in accordance with Admission requirements found in Title 42 Section 412.3 of the Code of Federal Regulations Patient History Date of Service: 02/09/22 Reason for admission: Osteomyelitis R Great Toe History of Present Illness: Patient is a 31-year-old male with type 1 diabetes who presented to the ED with complaints of right foot pain and swelling. He sees Dr. Dalton for bilateral great toe ulcers, saw him last week, and has been on Bactrim for the past 10 days. He reports his blood sugar has been slightly higher than usual but less than 250. Today his right great toe is ulcerated with fusiform edema and erythema that extends up to the calf. Xray showed "Mildly displaced fracture involves the distal aspect of the first proximal phalanx which extends intra- articularly. This appears subacute. Lucency is present within the base of the first distal phalanx. This is suspicious for osteomyelitis. There is an adjacent soft tissue ulceration. No dislocation." US negative for DVT. White count and lactate within normal limits. Sed rate 85. Vital signs stable. He was started on Vanc in the ED. atient is admitted for further management. Allergies No Known Drug Allergies Allergy (Verified 03/08/20 12:10) Unknown Home medications list reviewed: Yes Home Medications: Insulin Aspart [Novolog Flexpen] See Protocol SQ ACHS 03/08/20 Insulin Glargine Human [Lantus*] 35 units SQ BEDTIME 03/08/20 Insulin Glargine Human [Lantus*] 35 units SQ DAILY WITH BREAKFAST 03/08/20 Cefdinir [Omnicef] 300 mg PO BID #10 capsule 07/12/21 Metoclopramide HCl [Reglan] 5 mg PO AC #30 tablet 07/12/21 Promethazine Tab [Phenergan] 25 mg PO Q6HP PRN #30 tab 07/12/21 - Past Medical/Surgical History Diabetic: Yes -: Diabetes mellitus type 1 -: ADD/ADHD -: Gastroparesis -: Anxiety Past Surgical History: Patient denies surgical history Psychosocial/ Personal History: 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 - Family History Mother -: Cancer - Social History Smoking Status: Never smoker (uses chewing tobacco) Alcohol use: Yes CD- Drugs: No Caffeine use: Yes Place of Residence: Home Review of Systems Integumentary: As per HPI Physical Examination - Physical Exam General: Alert, In no apparent distress HEENT: Atraumatic, PERRLA, Mucous membr. moist/pink, EOMI, Sclerae nonicteric Neck: Supple, 2+ carotid pulse no bruit, No LAD, Without JVD or thyroid abnormality Respiratory: Clear to auscultation bilaterally, Normal air movement Cardiovascular: Regular rate/rhythm, Normal S1 S2 Gastrointestinal: Normal bowel sounds, No tenderness Integumentary: Skin breakdown, Tenderness/swelling, Erythema, Warmth Neurological: Normal speech, Normal strength at 5/5 x4 extr, Normal tone, Normal affect - Studies Laboratory Data (last 24 hrs) 02/08/22 23:05: PT 11.1, INR 1.01, APTT 35.5 02/08/22 23:05: Sodium 134 L, Potassium 4.5, BUN 33 H, Creatinine 1.46 H, Glucose 284 H, Total Bilirubin 0.7, AST 14 L, ALT 27, Alkaline Phosphatase 78 02/08/22 23:05: WBC 6.30, Hgb 11.3 L, Hct 31.7 L, Plt Count 266 Assessment and Plan - Problems (Diagnosis) (1) Osteomyelitis of great toe of right foot Current Visit: Yes Status: Acute (2) Diabetes mellitus type 1 Current Visit: Yes Status: Chronic - Plan -Wound and blood cultures obtained -Vanc and cefepime -NPO at midnight. IV hydration -General surgery consult -Wound care -A1c ordered. Strict blood sugar control -Monitor and replete electrolytes per protocol -Reconcile and continue home medications -VTE prophylaxis -Full code Discharge Plan: Home Plan to discharge in: Greater than 2 days - Advance Directives Does patient have a Living Will: No Does patient have a Durable POA for Healthcare: No - Code Status/Comfort Care Code Status Assessed: Yes (Full) Critical Care: No Time Spent Managing Pts Care (In Minutes): 50
[2022-02-09 00:12] LABS: SARS-CoV-2 Antigen Rapid Res Negative (Negative)
[2022-02-09] MEDS ORDERED: MORPHINE 4 MG/ML SYR IV PRN (00:58)
[2022-02-09] MEDS ORDERED: ACETAMINOPHEN 500 MG TAB PO PRN (00:58)
[2022-02-09] MEDS ORDERED: ONDANSETRON 4 MG/2 ML VIAL IV PRN (00:58)
[2022-02-09] MEDS ORDERED: VANCOMYCIN 1 GM in NA CHLORIDE 0.9% 250 ML IVPB SCH (00:58)
[2022-02-09] MEDS: CEFEPIME 1 GM in NA CHLORIDE 0.9% 100 ML IV SCH ×2 (01:00→21:17)
[2022-02-09] MEDS: NA CHLORIDE 0.9% 1,000 ML IV SCH ×2 (01:00→11:00)
[2022-02-09] MEDS ORDERED: NA CHLORIDE 0.9% 100 ML IV ONE (01:08)
[2022-02-09] MEDS ORDERED: CEFEPIME 1 GM/VIAL ONE (01:08)
[2022-02-09] MEDS ORDERED: NA CHLORIDE 0.9% 1,000 ML ONE ×2 (01:08→14:53)
[2022-02-09 02:32] LABS: Absolute Lymphocytes (CBC) 1.5 K/uL (0.7-4.9); Hematocrit 29.6 % (39.6-49.0); Lymphocytes % 25.8 % (15.3-44.8); MCV 84.1 fL (80-100); MPV 6.7 fL (7.6-11.3); RBC Red Blood Cell Count 3.52 M/uL (4.33-5.43)
[2022-02-09 02:42] VITALS: BMI 26.4
[2022-02-09 02:49] LABS: Magnesium 2.3 mg/dL (1.8-2.4); Phosphorus 3.4 mg/dL (2.5-4.9); Potassium 4.8 mmol/L (3.5-5.1)
[2022-02-09] MEDS: INSULIN -REGULAR HUMAN 50 UNIT/0.5 ML ML SQ SCH ×4 (07:30→21:17)
[2022-02-09] MEDS ORDERED: INFLUENZA VACCINE (for 6+ mo) 0.5 ML DOSE IMVAC ONE (08:00)
[2022-02-09] MEDS: VANCOMYCIN 1.5 GM in NA CHLORIDE 0.9% 500 ML IVPB SCH ×2 (11:00→23:42)
[2022-02-09] MEDS ORDERED: INSULIN -REGULAR HUMAN 50 UNIT/0.5 ML ML ONE (11:09)
[2022-02-09] MEDS ORDERED: Ringers Lactate 1,000 ML IV ONE ×2 (13:08→14:20)
[2022-02-09] MEDS ORDERED: propofoL 200 MG/20 ML VIAL IV ONE (13:22)
[2022-02-09] MEDS ORDERED: LIDOCAINE 2% MPF 5 ML VIAL ONE (13:23)
[2022-02-09] MEDS ORDERED: FENTANYL CITR 100 MCG/2 ML ONE (13:23)
[2022-02-09] MEDS ORDERED: MIDAZOLAM HCL 2 MG/2 ML INJ ONE (13:23)
[2022-02-09] MEDS ORDERED: ROCURONIUM 50 MG/5 ML VIAL IV ONE (13:23)
[2022-02-09] MEDS ORDERED: ONDANSETRON 4 MG/2 ML VIAL ONE (13:24)
--- NOTE | 2022-02-09 14:08 | P.CNS ---
Date of Consult: 02/09/22 PC: This 31-year-old male presents to the emergency room with pain swelling and redness of his right great toe. HPC: Patient has a painful ulcer on his right great toe. Has been draining some purulent material. PSHx: Negative PMHx: Diabetes mellitus type 1 Social Hx: No known allergies Sys R: No cough, wheeze, shortness of breath. No chest pain or palpitations. No urinary complaints O/E: Awake alert vital signs are stable HEENT: Within normal limits Chest: Air entry equal bilaterally Abd: Negative Scott: On the right lateral aspect of his right great toe as it areas of callus formation. In the middle of this there is an opening that has some purulent material draining from it [minimal amount] the area from the intertarsal joint approximately has some redness and swelling but appears to be chronic. The left great toe also shows area of chronic ulceration on the tip Data: The x-ray of his right foot shows fracture of the interphalangeal joint. There is a question of whether or not this represents acute fracture or osteo-. (The patient was stepped on by a bull about 4 to 6 weeks ago]. The left Impression: Abscess with necrotic material of the right great toe possibly left Plan: I will taken the operating room for surgical debridement of his right great toe. The risks of this procedure have been discussed. We will also look at the the distal portion of his left great toe while he is asleep. The possibility of bleeding, infection, injury to nerves blood vessels and surrounding structures were explained. The possible need for further surgeries in the future were outlined. The possible loss of his toe was also discussed. He understands and wants us to proceed.
[2022-02-09] MEDS ORDERED: KETOROLAC 30 MG/ML INJ ONE (14:26)
--- NOTE | 2022-02-09 14:35 | P.OP ---
Preoperative diagnosis: Ulceration of the right great toe with abscess, ulceration of left great to Postoperative diagnosis: Ulceration and abscess of the right great toe, healed ulceration of left gr Primary procedure: Incision, drainage, of abscess of the right great toe with sharp debridemen Secondary procedure: Examination under anesthesia of left great toe Anesthesia: General Estimated blood loss: Than 10 cc Specimen: Necrotic debris was not sent Operative Technique: The patient brought the operating room and placed supine on the table. After the induction of adequate general endotracheal anesthesia, the area of the left and right feet were prepped with a iodoform solution, and draped in usual aseptic manner. Attention was turned towards the left great toe first. There was an area of what appeared to be necrotic tissue on the medial aspect of the left great toe this was found to be just chronic callus that came off easily and actually dehisced tissue underneath is completely healthy. Attention was turned back towards the right great toe on the lateral aspect there is a small area of induration near where his his first and second toes are rubbing together. On the medial aspect of the right great toe there is an opening 1 mm above the distal skin crease. This was opened with a surgical cutting curette. We were now able to pass back towards another area that was about 15 mm from the skin crease. These 2 areas actually communicate. This tunnel that was underneath was now curetted of all old necrotic debris to back to good clean tissue. We establish drainage by passing a suture down through this part and tying it on itself to keep it open and draining during the initial postoperative period. At this point the toe and forefoot were palpated deeply there was no other areas of fluctuance there is some chronic swelling in this area but no actual free fluid. A bulky dressing was now applied. At the end of procedure he was stable and sent to the recovery room. Needle sponge instrument count were correct. Drain(s): Other (Large #2 suture) Transferred to: Recovery Room Condition: Good
[2022-02-09] MEDS ORDERED: VANCOMYCIN 1.5 GM in NA CHLORIDE 0.9% 500 ML IVPB SCH (17:00)
[2022-02-10] MEDS: NA CHLORIDE 0.9% 1,000 ML IV SCH ×2 (03:03→07:00)
[2022-02-10 03:46] LABS: Absolute Lymphocytes (CBC) 1.1 K/uL (0.7-4.9); Hematocrit 28.5 % (39.6-49.0); Lymphocytes % 21.5 % (15.3-44.8); MCV 83.4 fL (80-100); MPV 6.7 fL (7.6-11.3); RBC Red Blood Cell Count 3.42 M/uL (4.33-5.43)
[2022-02-10 03:59] LABS: Potassium 4.8 mmol/L (3.5-5.1)
[2022-02-10] MEDS: INSULIN -REGULAR HUMAN 50 UNIT/0.5 ML ML SQ SCH ×3 (07:30→16:36)
[2022-02-10 10:39] VITALS: O2SAT 97
[2022-02-10] MEDS: VANCOMYCIN 1.5 GM in NA CHLORIDE 0.9% 500 ML IVPB SCH (10:58)
[2022-02-10 11:30] LABS: Specific Gravity 1.017 (1.005-1.030); Urine Bacteria <20 /HPF (<20); Urine Bilirubin NEGATIVE (Negative); Urine Blood 3+ (Negative); Urine Clarity Clear (Clear); Urine Color Light-Yellow (Yellow); Urine Crystals Unidentified Few /HPF (None Seen); Urine Glucose 4+ (Over) (Negative); Urine Mucus Slight /HPF (None Seen); Urine Protein 1+ (Negative); Urine RBC 21-50 /HPF (None Seen); Urine Urobilinogen Normal (Normal); Urine pH 5.5 (5.0-7.0)
--- NOTE | 2022-02-10 14:40 | P.PN ---
Date of Service: 02/10/22 S: Patient feels well today, says his toe feels a lot different. Much more comfortable when he gets up and walks around. Minimal amount of drainage. He says he can see that it is less swollen and obviously a lot less red today. O: #[address] Wound has minimal drainage. A lot less swelling to the great toe of his right foot. A: Patient is much improved. We have discussed the surgical findings. The fact that he still has some small areas of blistering callus around his other toes. P: This patient is surgically stable. He may be discharged from my point of view. I discussed with the radiologist the usefulness of a MRI, bone scan, or other imaging modalities. They have stated that the results would be equivocal for at least another few weeks in view of the fact that the patient most likely had trauma from a bull standing on his toe. It is probable that he is sustained a fracture at that time. He has Bactrim at home, and has been on it for the last few days. I will let the hospitalist decide what further IV treatment he requires. He may be discharged from my point of view, with follow-up in the wound care clinic on Monday. I have told him should he have any questions or problems he is to return to the emergency room, or contact my office. He is quite happy with this arrangement. We also discussed wound care, washing the area with soap and water, using Liss and to the wound, and changing the dressing as needed.
[2022-02-10 16:32] VITALS: BP 161/89; TEMP 97.3
--- NOTE | 2022-02-10 17:24 | P.DS ---
Discharge Date: 02/10/22 Disposition: ROUTINE DISCHARGE Discharge Condition: GOOD Reason for Admission: Osteomyelitis R Great Toe Consultations: Dr. Collier Brief History of Present Illness: Patient is a 31-year-old male with type 1 diabetes who presented to the ED with complaints of right foot pain and swelling. He sees Dr. Dalton for bilateral great toe ulcers, saw him last week, and has been on Bactrim for the past 10 days. He reports his blood sugar has been slightly higher than usual but less than 250. Today his right great toe is ulcerated with fusiform edema and erythema that extends up to the calf. Xray showed "Mildly displaced fracture involves the distal aspect of the first proximal phalanx which extends intra- articularly. This appears subacute. Lucency is present within the base of the first distal phalanx. This is suspicious for osteomyelitis. There is an adjacent soft tissue ulceration. No dislocation." US negative for DVT. White count and lactate within normal limits. Sed rate 85. Vital signs stable. He was started on Vanc in the ED. atient is admitted for further management. Hospital Course: Patient is status post I&D. Clinically doing much better. Aat this time, chidi ent is stable for discharge with outpatient follow-up. Spoke with general surgery, and they will follow patient up in wound healing center. Recommend oral antibiotics at this time and depending on outpatient findings they will determine if patient needs IV antibiotic therapy going forward. At this time, he is stable for discharge with oral antibiotics and he will be reassessed during wound healing appointment. Vital Signs/Physical Exam: Temp Pulse Resp BP Pulse Ox 97.3 F 91 H 15 161/89 H 99 02/10/22 16:00 02/10/22 16:00 02/10/22 16:00 02/10/22 16:00 02/10/22 16:00 General: Alert, In no apparent distress, Oriented x3 Laboratory Data at Discharge: WBC 5.00 K/uL (4.3-10.9) 02/10/22 03:01 Hgb 10.2 g/dL (13.6-17.9) L 02/10/22 03:01 Hct 28.5 % (39.6-49.0) L 02/10/22 03:01 Plt Count 212 K/uL (152-406) 02/10/22 03:01 PT 11.1 SECONDS (9.5-12.5) 02/08/22 23:05 INR 1.01 02/08/22 23:05 APTT 35.5 SECONDS (24.3-36.9) 02/08/22 23:05 Sodium 150 mmol/L (136-145) H D 02/10/22 03:01 Potassium 4.8 mmol/L (3.5-5.1) 02/10/22 03:01 BUN 25 mg/dL (7-18) H 02/10/22 03:01 Creatinine 1.22 mg/dL (0.55-1.3) 02/10/22 03:01 Glucose 101 mg/dL (74-106) 02/10/22 03:01 Phosphorus 3.4 mg/dL (2.5-4.9) 02/09/22 02:12 Magnesium 2.3 mg/dL (1.8-2.4) 02/09/22 02:12 Total Bilirubin 0.7 mg/dL (0.2-1.0) 02/08/22 23:05 AST 14 U/L (15-37) L 02/08/22 23:05 ALT 27 U/L (12-78) 02/08/22 23:05 Alkaline Phosphatase 78 U/L (45-117) 02/08/22 23:05 Home Medications: Insulin Degludec [Tresiba] 28 units SQ BID 02/09/22 Hydrocodone 10/APAP 325 [Andrews 10/325] 1 tab PO Q12H PRN #20 tab 02/10/22 Smz./Tmp. [Bactrim Ds 800 MG/160 MG] 1 tab PO BID #28 tab 02/10/22 levoFLOXacin [Levaquin] 500 mg PO DAILY #14 tab 02/10/22 New Medications: Smz./Tmp. [Bactrim Ds 800 MG/160 MG] 1 tab PO BID #28 tab levoFLOXacin [Levaquin] 500 mg PO DAILY #14 tab Hydrocodone 10/APAP 325 [Andrews 10/325] 1 tab PO Q12H PRN #20 tab PRN Reason: Pain Physician Discharge Instructions: -DC IV and DC home -Follow-up with PCP in 1 to 2 weeks -Follow-up with Dr. Collier in wound healing on Monday -Please call Dr. Molina at [phone] if any questions regarding hospital stay -Please call nursing station at [phone] if any nursing or medication questions -Return to the emergency room if symptoms worsen Diet: AHA Activity: Fall precautions Followup: NONE,NONE [Primary Care Provider] - Time spent managing pt's care (in minutes): 35
--- NOTE | 2022-02-12 17:00 | EKG ---
Test Date: 2022-02-09 Test Time: 00:08:00 Law Professor: CARLENE MEASUREMENT RESULTS: Intervals: Rate: 86 WV: 156 QRSD: 70 QT: 338 QTc: 404 [place]: P: 38 WV: 156 QRS: 44 T: 43 INTERPRETIVE STATEMENTS: Normal sinus rhythm Normal ECG Compared to ECG 07/06/2021 12:16:44 Sinus tachycardia no longer present T-wave abnormality no longer present Electronically Signed On 02-12-22 16:55:45 CDT by Chavo Ellis
== END 2022-02-10 18:29 | disposition home or self-care (01) | DRG 982 ==
LOC: ER 21:24 → ERHOLD 23:58 → 4TH 02-09 14:43
PROVIDERS: ADMIT Hospitalist; ATTEND Hospitalist
PROC: 0JDQ0ZZ Extraction of Right Foot Subcutaneous Tissue and Fascia, Open Approach (ICD-10-PCS; principal; 2022-02-09 13:00)
DX: E10.621 Type 1 diabetes mellitus with foot ulcer (principal); L02.611 Cutaneous abscess of right foot; M86.171 Other acute osteomyelitis, right ankle and foot; E10.69 Type 1 diabetes mellitus with other specified complication; L97.519 Non-pressure chronic ulcer of other part of right foot with unspecified severity; S92.911A Unspecified fracture of right toe(s), initial encounter for closed fracture; F17.220 Nicotine dependence, chewing tobacco, uncomplicated; Z88.8 Allergy status to other drugs, medicaments and biological substances; Z79.4 Long term (current) use of insulin; Z28.310 Unvaccinated for COVID-19; Z79.899 Other long term (current) drug therapy; Z20.822 Contact with and (suspected) exposure to COVID-19
CPT/HCPCS: 36415; 80048; 80053; 80202; 81001; 82947; 83036; 83605; 83735; 84100; 85025; 85610; 85652; 85730; 87040; 87070; 87077; 87186; 87205; 87811; 93005; 93971; 96365; 96366; 96375; 99285; J0692; J1815; J2001; J2250; J2405; J2704; J3010; J3370; J7030; J7040; J7120

== ENCOUNTER 2022-04-17 22:09 | Inpatient (IN) | payer OTHER, SELFPAY ==
--- OUTSIDE RECORDS SUMMARY | 2022-04-17 22:17 | XMS REPORT | Continuity of Care Document ---
:1990 Author Organization [facility] t Address [address] [place] [address] Care Team Providers Name Role Phone [facility] Primary [facility] Physician CORAL OREILLY Attending Clinician Unavailable Helder_T Attending Clinician Unavailable Doctor Unassigned, Dorr Attending Clinician Unavailable Tabitha Rose MD Attending Clinician TABITHA ROSE Attending Clinician Unavailable WALDO WATKINS Attending Clinician Unavailable Waldo Watkins DO Attending Clinician Nurse, [facility] Attending Clinician Unavailable Tameka Cerda Attending Clinician TAMEKA NEWELL Attending Clinician Unavailable OLIVIA MUHAMMAD Attending Clinician Unavailable Ziggy eSo MD Attending Clinician Olivia Muhammad DO Attending Clinician BETH GOMEZ Attending Clinician Unavailable BETH GOMEZ Attending Clinician Unavailable ANGELA JACKMAN Attending Clinician Unavailable Coral Oreilly MD Attending Clinician [phone] Ted Yanez DO Attending Clinician Jason Burtya S Attending Clinician Shirley Dockery RN, Marialuisa Attending Clinician Unavailable Olivia Owens RN Attending Clinician Unavailable SUSHMA DAWSON Attending Clinician Unavailable Nicola Romero S Attending Clinician CAITLIN SHARMA Attending Clinician Unavailable [...] Clinician Unavailable WALDO WATKINS Admitting Clinician Unavailable Britton GARZA, Coral Adorno Admitting Clinician [phone] KYLAH MARTINEZ Admitting Clinician Unavailable WESTON LOGAN Admitting Clinician Unavailable KARLEE FOX Admitting Clinician Unavailable Payers Payer Name Policy Type Policy Number Effective Date Expiration Date S ource Problems Condition Condition Condition Status Onset Resolution Last Treating Co mments Source Name Details Category Date Date Treatment Clinician Date Type 1 Type 1 Problem Active [facility] diabetes Diabetes 8-17 Family mellitus Mellitus 00:00: Practi c 00 e Penile Penile Problem Active [facility] warts Warts 10-21 Family 00:00: Practic 00 e Hypoglycem Hypoglycem Problem Active [facility] ia ia 10-21 Family 00:00: Practic 00 e Body mass Body Mass Problem Active Alice ry index Index 10-21 Family - - 00:00: Practic overweight Overweight 00 e Orgasm Orgasm Problem Active [facility] without without 08-28 Family ejaculatio Ejaculatio 00:00: Pr actic n n 00 e Cognitive Cognitive Problem Active Alice raza deficit in Deficit in 08-28 Fa radha attention Attention 00:00: Prac tic 00 e Type 1 Type 1 Problem Active [facility] diabetes Diabetes 07-17 Family mellitus Mellitus 00:00: Practi c uncontroll Uncontroll 00 e ed ed Restless 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[facility] legs Legs 07-17 Family 00:00: Practic 00 e Ulcer of Ulcer of Problem Active [facility] toe Toe 07-17 Family 00:00: Practic 00 e Family Family Problem Active [facility] Diabetes 00:00: Practi c mellitus Mellitus 00 e Family Family Problem Active [facility] cardiac Cardiac 00:00: Practic disorder Disorder 00 e Diabetic Diabetic Disease [facility] Rhianna kes is without is without 00:00: Me dical coma coma 00 Center GI bleed GI bleed Disease [facility] [place] Acidosis Acidosis Disease [facility] Medical [place] ACCIDENT ACCIDENT Diagnosis Active 2017-03-28 Memoria Active 11-22 13:59:00 l 11/22/2016 13:00: [facility] 00 Jay Em Attention Attention Disease Active 2006-04 Overview: Univers deficit deficit 0-22 Formattin ity o f hyperactiv hyperactiv 00:00: g of this [place] ity ity 00 note Medical disorder disorder might be Bran ch (ADHD) (ADHD) different from the original. ICD10 Diagnosis Term Machine Hand Utility Uncontroll Uncontroll Disease Active Overview : Univers ed type 1 ed type 1 -10 Formattin i ty of diabetes diabetes 00:00: g of this Leo as mellitus mellitus 00 note Medica l might be Branch different from the original. Dx age 4ICD10 Diagnosis Term Machine Hand Utility Diabetes Diabetes Problem Resolve 2016-11-26 Memoria mellitus mellitus d 05:37:49 l (disorder) (disorder) He rmann Resolved Problem 11/26/2016 [place] Trichomoni Trichomoni Disease Active U kamaljit asis asis [facility] [place] [facility] History of Past Illness Condition Condition Condition Status Onset Resolution Last Treating Co mments Source Name Details Category Date Date Treatment Clinician Date Strain of Strain Problem 2016-11-26 2016-11-26 Memoria muscle, of muscle, 11-23 05:37:49 05:37:49 l fascia and fascia and 05:00: He rmann tendon at tendon at 00 neck neck level, level, initial initial encounter encounter 11/23/2016 11/26/2016 [place] Allergies, Adverse Reactions, Alerts Allergy Allergy Status Severity Reaction(s) Onset Inactive Treating Comm ents Source Name Type Date Date Clinician NO KNOWN Drug Active Univers ALLERGIE Class ity of [facility] [place] [facility] Social History Social Habit Start Date Stop Date Quantity Comments Source History [facility] o f Alcohol Comment [place] [facility] History of Snuff User University of tobacco use [facility] Exposure to 2021-11-05 2021-11-15 Not sure University of SARS-CoV-2 00:00:00 13:22:00 [place] [facility] (event) [facility] Alcohol intake 2021-11-08 2021-11-08 Current drinker Unive rsity of 00:00:00 00:00:00 of alcohol [place] [facility] (finding) Branch History [facility] 2020-02-03 2020-02-03 2 University o f Alcohol Frequency 00:00:00 00:00:00 [place] [facility] History SDCT 2020-02-03 2020-02-03 99 University o f Alcohol Std 00:00:00 00:00:00 [place] [facility] Drinks Branch History [facility] 2020-02-03 2020-02-03 99 University o f Alcohol Binge 00:00:00 00:00:00 [place] [facility] Tobacco use and 2020-02-03 2020-02-03 User of smokeless Un iversity of exposure 00:00:00 00:00:00 tobacco [facility] Tobacco Comment 2008-08-06 2008-08-06 on and off Universit y of 00:00:00 00:00:00 [facility] Sex Assigned At [address] [facility] kes 00:00:00 00:00:00 [facility] Smoking Status Start Date Stop Date Source Social History [facility] Medications Ordered Filled Start Stop Current Ordering Indication Dosage Frequency Signature Comments Components Source Medication Medication Date Date Medication? Clinician (SIG) Name Name benzonatate Yes [id number] 100mg Take 1 Univers 100 mg 3-25 capsule by ity of capsule 00:00: mouth 3 [place] 00 (three) Medical times Branch daily as needed for Cough. ondansetron 2021-0 Yes [id number] 4mg Take 1 Univers 4 mg 3-25 tablet by ity of disintegrat 00:00: mouth [place] ing tablet 00 every 8 Medica l (eight) Branch hours as needed for Nausea and Vomiting (N/V). chlorphenir 2021-0 Yes [id number] 4mg Take 1 Univers amine 4 mg 3-25 tablet by ity of tablet 00:00: mouth [place] 00 every 6 Medical (six) Branch hours as needed for Allergies or Runny nose. benzonatate 2021-0 Yes [id number] 100mg Take 1 Univers 100 mg 3-25 capsule by ity of capsule 00:00: mouth 3 [place] 00 (three) Medical times Branch daily as needed for Cough. ondansetron 2021-0 Yes [id number] 4mg Take 1 Univers 4 mg 3-25 tablet by ity of disintegrat 00:00: mouth [place] ing tablet 00 every 8 Medica l (eight) Branch hours as needed for Nausea and Vomiting (N/V). chlorphenir 2021-0 Yes [id number] 4mg Take 1 Univers amine 4 mg 3-25 tablet by ity of tablet 00:00: mouth [place] 00 every 6 Medical (six) Branch hours as needed for Allergies or Runny nose. benzonatate 2021-0 Yes [id number] 100mg Take 1 Univers 100 mg 3-25 capsule by ity of capsule 00:00: mouth 3 [place] 00 (three) Medical times Branch daily as needed for Cough. ondansetron 2021-0 Yes [id number] 4mg Take 1 Univers 4 mg 3-25 tablet by ity of disintegrat 00:00: mouth [place] ing tablet 00 every 8 Medica l (eight) Branch hours as needed for Nausea and Vomiting (N/V). chlorphenir 2021-0 Yes [id number] 4mg Take 1 Univers amine 4 mg 3-25 tablet by ity of tablet 00:00: mouth [place] 00 every 6 Medical (six) Branch hours as needed for Allergies or Runny nose. proMETHazin 2021-2021- No 25mg 25 mg, IV Univers e 3-15 03-15 Piggyback, ity of (PHENERGAN) 07:30: 09:27 at 200 Leo as 25 mg in NS 00 :00 mL/hr Medical 50 mL IV Administer Branc h piggyback over 15 (CNR) Minutes, ONCE, 1 dose, On Mon07/06/21 at 0230, [place] NaCl 0.9% 2021- No 1000mL at 999 Uni vers (NS) bolus 3-15 03-15 mL/hr, ity of infusion 07:30: 09:27 1,000 mL, Leo as 1,000 mL 00 :00 IV Medical Infusion, Branch ONCE, 1 dose, On Mon07/06/21 at 0230, STAT proMETHazin 0 Yes [id number] 25mg Take 1 Univers e 25 mg 3-15 tablet by ity of tablet 00:00: mouth [place] 00 every 6 Medical (six) Branch hours as needed for Nausea and Vomiting (N/V). proMETHazin 0 Yes [id number] 25mg Take 1 Univers e 25 mg 3-15 tablet by ity of tablet 00:00: mouth [place] 00 every 6 Medical (six) Branch hours as needed for Nausea and Vomiting (N/V). proMETHazin 0 Yes [id number] 25mg Take 1 Univers e 25 mg 3-15 tablet by ity of tablet 00:00: mouth [place] 00 every 6 Medical (six) Branch hours as needed for Nausea and Vomiting (N/V). proMETHazin 2021-0 Yes [id number] 25mg Take 1 Univers e 25 mg 3-15 tablet by ity of tablet 00:00: mouth [place] 00 every 6 Medical (six) Branch hours as needed for Nausea and Vomiting (N/V). proMETHazin 0 Yes [id number] 25mg Take 1 Univers e 25 mg [...] CAPSULE BY ity of capsule 00:00: MOUTH [place] THREE Medical TIMES Branch DAILY cephALEXin 2018-04 [...] CAPSULE BY ity of capsule 00:00: MOUTH [place] 00 THREE Medical TIMES Branch DAILY Insulin 0 Yes 30U inject Univers Glargine 01-08 30-35 ity of (LANTUS 00:00: Units [place] SOLOSTAR 00 under the Medica l U-100 skin 2 Branch INSULIN) (two) 100 unit/mL times (3 mL) daily. injection Insulin 0 Yes 30U inject Univers Glargine 01-08 30-35 ity of (LANTUS 00:00: Units [place] SOLOSTAR 00 under the Medica l U-100 skin 2 Branch INSULIN) (two) 100 unit/mL times (3 mL) daily. injection Insulin 0 Yes 30U inject Univers Glargine 01-08 30-35 [...] unit/mL times (3 mL) daily. injection Insulin 0 Yes 30U inject Univers Glargine 01-08 30-35 ity of (LANTUS 00:00: Units [place] SOLOSTAR 00 under the Medica l U-100 skin 2 Branch INSULIN) (two) 100 unit/mL times (3 mL) daily. injection Insulin 0 Yes 30U inject Univers Glargine - 30-35 ity of (LANTUS 00:00: Units [place] SOLOSTAR 00 under the Medica l U-100 skin 2 Branch INSULIN) (two) 100 unit/mL times (3 mL) daily. injection Insulin 0 Yes 30U inject Univers Glargine - 30-35 ity of (LANTUS 00:00: Units [place] SOLOSTAR 00 under the Medica l U-100 skin 2 Branch INSULIN) (two) 100 unit/mL times (3 mL) daily. injection Insulin 0 Yes 30U inject Univers Glargine -17 30-35 ity of (LANTUS 00:00: Units [place] 00 under the Medica l U-100 skin 2 Branch INSULIN) (two) 100 unit/mL times (3 mL) daily. injection clindamycin 2019-0 Yes TAKE 1 Univ ers [...] MOUTH Medical TIMES Branch DAILY mupirocin 2 Yes [...] f 00:00: TWICE A Medical Branch clindamycin 2018- Yes TAKE 1 Univ ers 300 mg 9-13 CAPSULE BY ity of capsule 00:00: MOUTH THREE Medical TIMES Branch DAILY mupirocin 2 Yes APPLY ON Un kiran % ointment 9-13 THE SKIN ity o f 00:00: TWICE A Medical Branch clindamycin 2018- Yes TAKE 1 Univ ers 300 mg 9-13 CAPSULE BY ity of capsule 00:00: MOUTH THREE Medical TIMES Branch DAILY mupirocin 2 Yes APPLY ON Un kiran % ointment 01-04 THE SKIN ity o f 00:00: TWICE A [facility] Branch clindamycin Yes TAKE 1 Univ ers 300 mg 01-04 CAPSULE BY ity of capsule 00:00: MOUTH THREE Medical TIMES Branch DAILY mupirocin 2 Yes APPLY ON Un kiran % ointment 01-04 THE SKIN ity o f 00:00: TWICE A [facility] Branch insulin Yes 30U Q.5D Inject [facility] glargine 10-18 30-[facility] (LANTUS) 12:16: Units Medical 100 unit/mL 59 subcutaneo Ce nter injection usly 2 (two) times daily Use as directed . Cyclobenzap Yes 10 mg, PO, Memoria rine 8-03 TID, PRN l hydrochlori 02:13: Muscle Herm phyllis de 10 MG 00 Spasm, X Oral Tablet 10 day, # [Flexeril] 30 tab, 0 Refill(s) Motrin 800 0 Yes 800 mg = 1 M emoria mg oral 8-03 tab, PO, l tablet 02:13: TID, X 7 Kvng 00 day, # 21 tab, 0 Refill(s) Cyclobenzap Yes 10 mg, PO, Memoria rine 8-03 TID, PRN l hydrochlori 02:13: Muscle Herm phyllis de 10 MG 00 Spasm, X Oral Tablet 10 day, # [Flexeril] 30 tab, 0 Refill(s) Motrin 800 0 Yes 800 mg = 1 M emoria [...] 50 USE DIRECTED One-A-Day One-A-Day No One-A-Day [facility] Men Men Men Family VitaCraves VitaCraves VitaCraves Practic e Pen Needle Pen Needle No Pen Needle [facility] 30 gauge x 30 gauge x 30 gauge x Family /16" 16" 09/06" Practic e Tresiba Tresiba No [...] Immunizations Ordered Filled Immunization Date Status Comments [facility] e Immunization Name Name Influenza Virus 2008-02-15 Completed Universit y of Vaccine 00:00:00 [facility] Influenza Virus 2008-02-15 Completed Universit y of Vaccine 00:00:00 [facility] Influenza Virus 2008-02-15 Completed Universit y of Vaccine 00:00:00 [facility] Influenza Virus 2008-02-15 Completed Universit y of Vaccine 00:00:00 [facility] Influenza Virus 2008-02-15 Completed Universit y of Vaccine 00:00:00 [facility] Influenza Virus 2008-02-15 Completed Universit y of Vaccine 00:00:00 [facility] Influenza Virus 2008-02-15 Completed Universit y of Vaccine 00:00:00 [facility] Influenza Virus 2008-02-15 Completed Universit y of Vaccine 00:00:00 [facility] Influenza Virus 2004-02-19 Completed Universit y of Vaccine 00:00:00 [facility] Influenza Virus 2004-02-19 Completed Universit y of Vaccine 00:00:00 [facility] Influenza Virus 2004-02-19 Completed Universit y of Vaccine 00:00:00 [facility] Influenza Virus 2004-02-19 Completed Universit y of Vaccine 00:00:00 [facility] Influenza Virus 2004-02-19 Completed Universit y of Vaccine 00:00:00 [facility] Influenza Virus 2004-02-19 Completed Universit y of Vaccine 00:00:00 [facility] Influenza Virus 2004-02-19 Completed Universit y of Vaccine 00:00:00 [facility] Vital Signs Vital Name Observation Time Observation Value Comments Source Height 2021-12-08 00:00:00 71 [in_i] [facility] BMI (Body Mass 2021-12-08 00:00:00 26.5 kg/m2 [facility] Family Index) Practice Body Weight 2021-12-08 00:00:00 190 [lb_av] [facility] Systolic blood 2021-07-17 04:05:00 130 mm[Hg] Univer sity of pressure [facility] Diastolic blood 2021-07-17 04:05:00 96 mm[Hg] Unive rsity of pressure [facility] Heart rate 2021-07-17 04:05:00 95 /min [facility] Respiratory rate 2021-07-17 04:05:00 18 /min [facility] Oxygen saturation in 2021-07-17 04:05:00 99 /min [facility] Arterial blood by [facility] Pulse oximetry Branch Body temperature 2021-07-17 01:58:00 37.06 Deb [facility] [place] [facility] Body height 2021-07-17 01:58:00 177.8 cm Universi [facility] Body weight 2021-07-17 01:58:00 85.276 kg Universi ty [facility] BMI 2021-07-17 01:58:00 26.98 kg/m2 [facility] Systolic blood 2021-07-17 01:25:00 135 mm[Hg] Univer sity of pressure [place] [facility] Diastolic blood 2021-07-17 01:25:00 92 mm[Hg] Unive rsity of pressure [place] [facility] Heart rate 2021-07-17 01:25:00 102 /min Universi ty of [place] [facility] Body temperature 2021-07-17 01:25:00 36.89 Deb Univ ersity of [place] [facility] Respiratory rate 2021-07-17 01:25:00 18 /min Univ ersity of [place] [facility] Body height 2021-07-17 01:25:00 177.8 cm Universi ty [facility] [place] [facility] Body weight 2021-07-17 01:25:00 85.458 kg Universi ty [facility] [place] [facility] BMI 2021-07-17 01:25:00 27.03 kg/m2 Universi ty [facility] [place] [facility] Oxygen saturation in 2021-07-17 01:25:00 100 /min University of Arterial blood by [facility] Pulse oximetry Branch Systolic blood 2021-07-06 08:28:15 120 mm[Hg] Univer sity of pressure [place] [facility] Diastolic blood 2021-07-06 08:28:15 82 mm[Hg] Unive rsity of pressure [place] [facility] Heart rate 2021-07-06 08:28:15 99 /min Universi ty [facility] [place] [facility] Respiratory rate 2021-07-06 08:28:15 20 /min Univ ersity of [facility] Oxygen saturation in 2021-07-06 08:28:15 100 /min University of Arterial blood by [place] [employer] Pulse oximetry Branch Body temperature 2021-07-06 02:17:00 37.11 Deb Univ ersity of [place] [facility] Body weight 2021-07-06 02:17:00 86.183 kg Universi ty [facility] [place] [facility] BMI 2021-07-06 02:17:00 27.26 kg/m2 Universi ty [facility] [place] [facility] Body weight 2021-04-22 21:56:00 88.451 kg Universi ty [facility] [place] [facility] BMI 2021-04-22 21:56:00 27.98 kg/m2 Universi ty [facility] [place] [facility] BP Diastolic 2020-10-21 00:00:00 67 mm[Hg] [facility] Height 2020-10-21 00:00:00 71 [in_i] [facility] BMI (Body Mass 2020-10-21 00:00:00 25.7 kg/m2 [facility]) [facility] BP Systolic 2020-10-21 00:00:00 101 mm[Hg] [facility] Body Weight 2020-10-21 00:00:00 184.2 [lb_av] [facility] Height 2020-06-19 00:00:00 71 [in_i] [facility] BMI (Body Mass 2020-06-19 00:00:00 26.2 kg/m2 [facility] Body Weight 2020-06-19 00:00:00 188 [lb_av] [facility] Respitory Rate 2016-11-24 03:00:00 Memori al Kvng Systolic (mm Hg) 2016-11-24 03:00:00 Praneeth rial Jay Em Diastolic (mm Hg) 2016-11-24 03:00:00 Mem orial Jay Em Temperature Oral (F) 2016-11-24 03:00:00 98.2 F [facility] Heart Rate 2016-11-24 03:00:00 [facility] BMI Calculated 2016-11-24 01:48:00 Memori al Kvng Height 2016-11-24 01:48:00 177.8 cm [facility] Weight 2016-11-24 01:48:00 [facility] Respitory Rate 2016-11-24 01:48:00 Memori al Kvng Heart Rate 2016-11-24 01:48:00 [facility] Systolic (mm Hg) 2016-11-24 01:48:00 Praneeth rial Jay Em Diastolic (mm Hg) 2016-11-24 01:48:00 Mem orial Kvng Temperature Oral (F) 2016-11-24 01:48:00 98.1 F [facility] Jay Em Procedures Procedure Date / Time Performed Performing Clinician Souraxel e [facility] 2021-11-15 05:01:00 Doctor Unassigned, No [facility] MEDICAL RECORDS / Name Medical Branch REFERRALS RAPID INFLUENZA A/B 2021-07-17 03:03:00 Waldo Watkins [facility] Medical Branch COVID-19 (ID NOW 2021-07-17 03:03:00 Waldo Watkins [facility] RAPID TESTING) Medical Branch COMP. METABOLIC PANEL 2021-07-17 02:25:00 Waldo Watkins [facility] ([id number]) Medical Branch CBC WITH DIFF 2021-07-17 02:25:00 Singer [facility] POCT GLUCOSE 2021-07-17 02:18:00 Singer [facility] (AUTOMATED) [facility] XR CHEST 1 VW 2021-07-17 02:11:52 [facility] CONSENT/REFUSAL FOR 2021-07-17 01:42:52 Doctor Unassigned, No [facility] AND Name Medical Branch TREATMENT POCT GLUCOSE 2021-07-06 09:31:00 Jb [facility] (AUTOMATED) Medical Branch LIPASE 2021-07-06 03:10:00 Jb [facility] TROPONIN I 2021-07-06 03:10:[address] [facility] COMP. METABOLIC PANEL 2021-07-06 03:10:00 Olivia Muhammad [facility] ([id number]) Medical [place] CBC WITH DIFF 2021-07-06 03:10:00 Jb [facility] EXTRA TUBE DK. GREEN 2021-07-06 03:10:00 Olivia Muhammad [facility] CONSENT/REFUSAL FOR 2021-07-06 02:15:31 Doctor Unassigned, No [facility] AND Name [facility] TREATMENT [facility] CONSENT 2021-05-24 21:01:50 Doctor Unassigned, No [facility] Name Medical [facility] h FORM Removal of silastic [facility] fox tubes from ear Plan of Care Planned Activity Planned Date Details Comments Source Diagnostic Test 2021-12-08 glucose, fingerstick, Alice raza Family Pending 00:00:00 blood [code = Practice glucose, fingerstick, blood] Diagnostic Test 2021-12-08 hemoglobin A1C, [place] Armin leblanc Pending 00:00:00 fingerstick [code = Practice hemoglobin A1C, fingerstick] Encounters Start End Encounter Admission Attending Care Care Encounter Source Date/Time Date/Time Type Type Clinicians Facility Department ID 2021-04-20 Emergency X BRITTON, [facility] OPH [id number] Univers 23:58:17 [facility] 2021-12-23 2021-12-23 Outpatient Daniel_T VFP VFP [id number] [address] [place] [address] 00:00:00 00:00:00 [id number] Family Practic e 2021-12-22 2021-12-22 Outpatient Daniel_T VFP VFP [id number] [address] [place] [address] 00:00:00 00:00:00 [id number] Family Practic e 2021-12-21 2021-12-21 Outpatient Daniel_T VFP VFP [id number] [address] [place] [address] 00:00:00 00:00:00 [id number] Family Practic e 2021-12-20 2021-12-20 Outpatient Daniel_T VFP VFP [id number] [address] [place] [address] 00:00:00 00:00:00 [id number] Family Practic e 2021-12-18 2021-12-18 Outpatient Daniel_T VFP VFP [id number] [address] [place] [address] 00:00:00 00:00:00 [id number] Family Practic e 2021-12-17 2021-12-17 Outpatient Daniel_T VFP VFP [id number] [address] [place] [address] 00:00:00 00:00:00 [id number] Family Practic e 2021-12-15 2021-12-15 Outpatient Daniel_T VFP VFP [id number] [address] [place] [address] 00:00:00 00:00:00 [id number] Family Practic e 2021-12-14 2021-12-14 Outpatient Daniel_T VFP VFP [id number] [address] [place] [address] 00:00:00 00:00:00 [id number] Family Practic e 2021-12-10 2021-12-10 Outpatient Daniel_T VFP VFP [id number] [address] [place] [address] 00:00:00 00:00:00 [id number] Family Practic e 2021-12-08 2021-12-08 Outpatient Daniel_T VFP VFP [id number] [address] [place] [address] 00:00:00 00:00:00 [id number] Family Practic e 2021-12-08 2021-12-08 Ted VFP [place] - [id number] V illage 00:00:00 00:00:00 [facility] - Practi axel GARZA: [id number] VM_HOU_Shad e [place] [address], [place] [address] , Ph. 2021-11-15 2021-11-15 Orders Doctor KHANH [id number] Univers 00:00:00 00:00:00 Only Unassigned, MARSHALL [id number] ity of [facility] [id number] Leo as [id number] [facility] 009 Branch 2021-08-02 2021-08-02 Telephone [place] [facility] [id number] Univers 00:00:00 00:00:00 Akkatarzyna SPECIALTY [id number] ity of [facility] [id number] [place] [id number] [place] [address] 2021-07-30 2021-07-30 Outpatient R TABITHA ROSE [facility] [id number] Univers 13:30:00 13:30:00 TABITHA ROSE [facility] [place] [facility] 2021-07-16 2021-07-16 Emergency X [facility] ERT [id number] Univers 21:04:00 23:28:00 Surgery [facility] 2021-07-16 2021-07-16 Emergency [facility] [id number] Univers 21:04:00 23:28:00 Waldo BUTT [id number] i ty of [place] [id number] [place] [id number] [facility] 084 Branch 2021-07-16 2021-07-16 Urgent Nurse, [facility] [id number] Univers 20:20:00 20:40:00 [facility] [id number] ity of [place] [id number] Leo as BELINDA?BLEA [id number] [place] [facility] [address] [place] [facility] 2021-07-162021-07-16 Outpatient R OSIRIS [facility] [id number] Univers 20:20:00 20:20:00 TAMEKA ity [facility] 2021-07-05 2021-07-06 Emergency X JB [facility] ERT [id number] Univers 21:19:00 04:37:00 OLIVIA [facility] 2021-07-05 2021-07-06 Emergency Ziggy Seo TRAUMA 1.2.840 .114 [id number] Univers 21:19:00 04:37:00 Olivia Muhammad ATHENS 350.1.13.10 [place] [phone] [facility] 014 Branch 2021-05-24 2021-05-24 Orders Doctor KHANH 1.2.840.114 [id number] Univers 00:00:00 00:00:00 Only Unassigned, MARSHALL 350.1.13.10 [place] [facility] 4.2.7.2.686 Leo as [phone] [facility] 009 Branch 2021-04-22 2021-04-22 Outpatient R BETH GOMEZ [facility] [id number] Univers 14:45:00 16:44:38 BETH GOMEZ [facility] 2021-04-22 2021-04-22 Office Mar [facility] 1.2.840.114 [id number] Univers 14:45:00 16:44:38 Visit Beth MATTHEWS 350.1.13.10 [place] [phone] [address] [facility] 2021-04-22 2021-04-22 Orders Doctor KHANH 1.2.840.114 [id number] Univers 00:00:00 00:00:00 Only Unassigned, MARSHALL 350.1.13.10 [place] [facility] 4.2.7.2.686 Leo as [phone] [facility] 009 Branch 2021-04-21 2021-04-21 Emergency X GASPER [facility] ERT [id number] Univers 01:59:00 03:30:00 ANGELA ity of [facility] 2021-04-21 2021-04-21 Emergency BrittonCoral cruz Tila TRAUMA 1.2.840.114 [id number] Univers 01:59:00 03:30:00 Ted Yanez ATHENS 350.1.13.10 ity of 4.2.7.2.686 [facility] [phone] [facility] 014 Branch 2021-04-21 2021-04-21 Emergency X [facility] ERT [id number] Univers 01:30:00 01:30:00 ity of [facility] 2021-04-20 2021-04-21 Emergency X [facility] ERT [id number] Univers 22:55:00 01:01:00 ANGELA ity [facility] 2021-04-20 2021-04-21 Emergency [facility] 1.2.875.436 [id number] Univers 22:55:00 01:01:00 Angela S COOK 350.1.13.10 i ty of [place] 4.2.7.2.686 [place] [facility] [phone] [facility] 084 Branch 2021-04-21 2021-04-21 Telephone Mar [facility] 1.2.397.803 [id number] Univers 00:00:00 00:00:00 Beth MULTISPEC 350.1.13.10 ity of [place] 4.2.7.2.686 [facility] [phone] [facility] [place] 136 [address] DIABETES CLINIC 2021-04-20 2021-04-20 Nurse Shirley CASSIDY 1.2.840.114 [id number] Univers 00:00:00 00:00:00 Triage MARSHALL Dockery 350.1.13.10 ity of [facility] 4.2.7.2.686 Leo as [phone] [facility] 019 Branch 2021-04-20 2021-04-20 Orders Doctor KHANH 1.2.840.114 [id number] Univers 00:00:00 00:00:00 Only Unassigned, MARSHALL 350.1.13.10 [place] [facility] 4.2.7.2.686 Leo as [phone] [facility] 009 Branch 2021-01-07 2021-01-07 Outpatient Daniel_T VFP VFP [id number] [address] [place] [address] 00:00:00 00:00:00 [id number] Family Practic e 2020-12-16 2020-12-16 [place] KHANH Owens 1.2.840.114 [id number] 00:00:00 00:00:00 (Out) Olivia OLIVARES 350.1.13.10 [facility] 4.2.7.2.686 Leo as [phone] [facility] 019 Branch 2020-12-14 2020-12-14 Outpatient R SAMIR [facility] [id number] Univers 17:40:00 17:40:00 SUSHMA zapata [facility] 2020-12-03 2020-12-03 Outpatient Daniel_T VFP VFP [id number] [address] [place] [address] 01:20:00 01:20:00 [id number] Family Practic e 2020-10-29 2020-10-29 Outpatient Daniel_T VFP VFP [id number] [address] [place] [address] 01:46:00 01:46:00 [id number] Family Practic e 2020-10-23 2020-10-23 Outpatient Daniel_T VFP VFP [id number] [address] [place] [address] 09:07:00 09:07:00 [id number] Family Practic e 2020-10-21 2020-10-21 Outpatient Daniel_T VFP VFP [id number] [address] [place] [address] 06:24:00 06:24:00 [id number] Family Practic e 2020-10-21 2020-10-21 Ted VFP [place] - [id number] V illage 00:00:00 00:00:00 [facility] Family [place], Medical - Practi axel GARZA: [id number] JESSIKA_TRESSA_Oliver e [facility], [address], [place] [address] , Ph. 2020-09-25 2020-09-25 Outpatient Daniel_T VFP VFP [id number] [address] [place] [address] 01:01:00 01:01:00 [id number] Family Practic e 2020-08-21 2020-08-21 Outpatient Daniel_T VFP VFP [id number] [address] [place] [address] 01:02:00 01:02:00 [id number] Family Practic e 2020-08-14 2020-08-14 Outpatient Daniel_T VFP VFP [id number] [address] [place] [address] 02:02:00 02:02:00 [id number] Family Practic e 2020-07-03 2020-07-03 Outpatient Daniel_T VFP VFP [id number] [address] [place] [address] 01:07:00 01:07:00 [id number] Family Practic e 2020-06-19 2020-06-19 Outpatient Daniel_T VFP VFP [id number] [address] [place] [address] 05:48:00 05:48:00 [id number] Family Practic e 2020-06-19 2020-06-19 Ted VFP [place] - [id number] V illage 00:00:00 00:00:00 [facility] Family [place], Medical - Practi axel GARZA: [id number] VM_TRESSA_Oliver e [facility], [address], [place] [address] , Ph. 2020-05-17 2020-05-17 Outpatient Daniel_T VFP VFP [id number] [address] [place] [address] 01:04:00 01:04:00 [id number] Family Practic e 2020-05-14 2020-05-14 Outpatient Daniel_T VFP VFP [id number] [address] [place] [address] 12:02:00 12:02:00 [id number] Family Practic e 2020-03-27 2020-03-27 Telephone Steven [facility] 1.2.951.551 [id number] Univers 00:00:00 00:00:00 [facility] 350.1.13.10 it y of Surgical 4.2.7.2.686 [place] as Specialti [phone] La dic[address] 2020-03-12 2020-03-12 Outpatient R ZACHARY [facility] [id number] Univers 09:00:00 09:00:00 CAITLIN matos [facility] 2020-03-04 2020-03-04 Orders Doctor CASSIDY 1.2.840.114 [id number] 00:00:00 00:00:00 Only Unassigned, MARSHALL 350.1.13.10 [place] [facility] 4.2.7.2.686 Leo as [phone] [address] 2020-03-04 2020-03-04 Orders Doctor KHANH 1.2.840.114 [id number] 00:00:00 00:00:00 Only Unassigned, MARSHALL 350.1.13.10 [place] [facility] 4.2.7.2.686 [phone] [facility] 2020-02-25 2020-02-25 [facility] 1.2.840.114 [id number] Univers 09:18:37 23:59:00 Encounter Caitlin L Health 350.1.13.10 ity of Surgical 4.2.7.2.686 Leo as Specialti [phone] La dical es 809 [facility] 2020-02-25 2020-02-25 [facility] 1.2.840.114 [id number] 09:18:37 23:59:00 Encounter Caitlin L Health 350.1.13.10 Surgical 4.2.7.2.686 Specialti [phone] es 809 [place] 2020-02-25 2020-02-25 Outpatient R STEVEN [facility] [id number] Univers 11:00:00 11:00:00 NICOLA ity [facility] 2020-02-25 2020-02-25 [facility] 1.2.840.114 [id number] Univers 09:02:34 09:17:34 Visit Nicola S Health 350.1.13.10 it y of Surgical 4.2.7.2.686 Leo as Specialti [phone] Me dical es 198 [facility] 2020-02-25 2020-02-25 [facility] 1.2.840.114 [id number] 09:02:34 09:17:34 Visit Nicola S Health 350.1.13.10 Surgical 4.2.7.2.686 Specialti [id number] es 198 [place] 2020-02-21 2020-02-21 [facility] 1.2.209.760 [id number] Univers 00:00:00 00:00:00 Nicola S Health 350.1.13.10 it y of Surgical 4.2.7.2.686 Leo as Specialti [phone] La dical es 198 [facility] 2020-02-21 2020-02-21 [facility] 1.2.887.573 [id number] 00:00:00 00:00:00 Nicola [facility] 350.1.13.10 Surgical 4.2.7.2.686 Specialti [phone] es [address] [place] [address] 2020-02-17 2020-02-17 [facility] 1.2.997.784 [id number] Univers 00:00:00 00:00:00 Nicola [facility] 350.1.13.10 it y of Surgical 4.2.7.2.686 Leo as Specialti [phone] La dical es 198 [facility] 2020-02-13 2020-02-13 Telephone [facility] 1.2.840.114 [id number] Univers 00:00:00 00:00:00 CaitlinOhm Universe 350.1.13.10 it y of Surgical 4.2.7.2.686 Leo as Specialti [id number] La dical es 198 [facility] 2020-02-12 2020-02-12 Orders Doctor KHANH 1.2.840.114 [id number] Univers 00:00:00 00:00:00 Only Unassigned, MARSHALL 350.1.13.10 [place] [facility] 4.2.7.2.686 Leo as [phone] [address] 2020-02-09 2020-02-09 Telephone [facility] 1.2.840.114 [id number] Univers 00:00:00 00:00:00 Caitlin [employer] 350.1.13.10 it y of Surgical 4.2.7.2.686 Leo as Specialti [phone] La dical es 198 [facility] 2020-02-05 2020-02-05 [facility] 1.2.840.114 [id number] Univers 00:00:00 00:00:00 Caitlin L Health 350.1.13.10 it y of Surgical 4.2.7.2.686 Leo as Specialti [id number] La dical es 198 [facility] 2020-02-04 2020-02-04 Sock Liner Mela, Robbie Lab Main [facility] 1.2.8 40.114 [id number] Univers 10:22:40 10:37:40 Visit Caitlin Sharma Augusto 350.1.13.10 ity of [place] Profess[place] [phone] La dical nal 353 [facility] 2020-02-04 2020-02-04 [facility] [id number] Univers 10:00:00 10:00:00 CAITLIN ity [facility] 2020-02-03 2020-02-03 [facility] 1.2.840.114 [id number] Univers 14:56:01 15:11:01 Visit [facility] 350.1.13.10 it y of Surgical 4.2.7.2.686 Leo as Specialti [id number] La dical es 198 [facility] 2020-02-03 2020-02-03 Outpatient R STEVEN [facility] [id number] Univers 14:45:00 14:45:00 NICOLA ity [facility] 2019-07-22 2019-07-22 [facility]phone [facility] 1.2.840.114 [id number] Univers 00:00:00 00:00:00 Wondiful Tegan Augusot 350.1.13.10 ity of [place] [phone] La dical nal 044 [facility] 2019-07-18 2019-07-18 Orders Doctor KHANH 1.2.840.114 [id number] Univers 00:00:00 00:00:00 Only Unassigned, MARSHALL 350.1.13.10 ity of [place] [facility] 4.2.7.2.686 Leo as [phone] [address] 2016-11-24 2016-11-24 Emergency [facility] [id number] Memoria 01:46:00 03:02:00 r Kvng 00 l [facility] 2016-11-24 2016-11-24 Emergency [facility] [id number] Memoria 01:46:00 03:02:00 r Kvng 00 l [facility] 2016-11-23 2016-11-23 Outpatient [place], [place] [id number] 20:46:00 22:02:00 Abdmichael Pineda 2009-02-13 2009-02-13 Outpatient [facility] [id number] Univers 00:00:00 11:08:00 3 ity of [facility] 2008-11-04 2008-11-04 [facility] [id number] Univers 00:00:00 16:27:00 0 ity of [facility] 2008-09-09 2008-09-09 [place] [facility] [place] [id number] Univers 00:00:00 12:39:00 2 ity of [facility] 2008-08-06 2008-08-06 [facility] [id number] Univers 00:00:00 14:06:00 7 ity [facility] 2008-02-15 2008-02-15 Outpatient [facility] [id number] Univers 00:00:00 11:52:00 2 ity of [facility] 2007-07-24 2007-07-24 Outpatient [facility] [id number] Univers 00:00:00 17:46:00 3 ity of [facility] 2007-03-27 2007-03-27 Outpatient [facility] [id number] Univers 00:00:00 16:02:00 2 ity of [facility] 2007-02-13 2007-02-13 Outpatient [facility] [id number] Univers 00:00:00 16:34:00 3 ity of [facility] 2006-10-09 2006-10-09 Outpatient [facility] [id number] Univers 00:00:00 17:00:00 4 ity of [facility] 2006-09-03 2006-09-05 Inpatient O KENDALL BOWEN [facility] PED [id number] Univers 22:36:00 16:54:00 9 ity of [facility] 2006-05-11 2006-05-11 Outpatient [facility] [id number] Univers 00:00:00 17:17:00 5 ity [facility] 2005-09-30 2005-10-02 Inpatient X ISA CARR [facility] PED 30 [id number] Univers 10:54:00 11:12:00 ISA CARR 4 [facility] 2005-07-21 2005-07-21 Outpatient [facility] [id number] Univers 00:00:00 17:07:00 2 [facility] 2005-05-12 2005-05-12 Outpatient [facility] [id number] Univers 00:00:00 16:33:00 4 [facility] Results Test Description Test Time Test Comments Results Result Comments Source COMP. METABOLIC PANEL (01077) 2021-07-17 03:33:01 Test Item Value Reference Range Interpretation Comme nts NA (test code = 0422883369) 133 mmol/L 135-145 L K (test code = 2709934090) 4.2 mmol/L 3.5-5.0 CL (test code = 0352640701) 95 mmol/L 98-108 L CO2 TOTAL (test code = 1651680285) 29 mmol/L 23-31 AGAP (test code = 7871939035) 2-16 BUN (test code = 0202492714) 21 mg/dL 7-23 GLUCOSE (test code = 7370307353) 385 mg/dL 70-110 H CREATININE (test code = 0.90 mg/dL 0.60-1.25 1238712708) TOTAL BILI (test code = 0.9 mg/dL 0.1-1.3 2254583130) CALCIUM (test code = 3635177456) 8.6 mg/dL 8.6-10.6 T PROTEIN (test code = 5882603213) 6.3 g/dL 6.3-8.2 ALBUMIN (test code = 5133445047) 3.8 g/dL 3.5-5.0 ALK PHOS (test code = 5852049733) 59 U/L 34-122 ALTv (test code = 1742-6) 37 U/L 5-50 AST(SGOT) (test code = 2632743287) 33 U/L 13-40 eGFR (test code = 2757702868) mL/min/1.73m2 PARKER (test code = PARKER) Association [...] tests). Lab Interpretation (test code = Abnormal 71072-2) [facility]2021-07-17 02:56:30 Test Item Value Reference Range Interpretation Comments POCT GLU (test code = 6582652757) 446 mg/dL 70-110 H Lab Interpretation (test code = Abnormal 39849-3) [facility] WITH [id number] 02:53:13 Test Item Value Reference Range Interpretation Comments WBC (test code = See_Comment [Automated 1990-2) message] The sy stem which generated this result transmitted reference range : 4.20 - 10.70 10*3/?L. The reference range was not used to interpret this result as normal/abnormal . RBC (test code = See_Comment L [Automated 119-8) message] The sy stem which generated this [...] (test code = 35.9 fL 38.5-51.6 L 21462-3) RDW-CV (test code = 12.8 % 12.1-15.4 788-0) PLT (test code = See_Comment [Automated 777-3) message] The sy stem which generated this result transmitted reference range : 150 - 328 10*3/ ?L. The reference r aixa was not used to interpret this result as normal/abnormal . MPV (test code = 10.4 fL 9.8-13.0 57502-6) NRBC/100 WBC (test See_Comment [Automat ed code = 3927211593) message] The system which generated this result transmitted reference range : 0.0 - 10.0 /100 WBCs. The refer ence range was not u sed to interpret th is result as normal/abnormal . NRBC x10^3 (test code <0.01 See_Comment [Auto mated = 1185768505) message] The s ystem which generated this result transmitted reference range : 10*3/?L. The reference range was not used to interpret this result as normal/abnormal . GRAN MAT (NEUT) % 49.8 % (test code = 770-8) IMM GRAN % (test code 0.20 % = 4441659579) LYMPH % (test code = 39.2 % 736-9) MONO % (test code = 8.7 % 5905-5) EOS % (test code = 1.9 % 713-8) BASO % (test code = 0.2 % 706-2) GRAN MAT x10^3(ANC) 2.12 10*3/uL 1.99-6.95 (test code = 1889050550) IMM GRAN x10^3 (test <0.03 0.00-0.06 code = 1461381128) LYMPH x10^3 (test code 1.67 10*3/uL 1.09-3.23 = 731-0) MONO x10^3 (test code 0.37 10*3/uL 0.36-1.02 = 742-7) EOS x10^3 (test code = 0.08 10*3/uL 0.06-0.53 711-2) BASO x10^3 (test code <0.03 0.01-0.09 = 704-7) Lab Interpretation Abnormal (test code = 49232-7) [facility]2021-07-06 09:32:34 Test Item Value Reference Range Interpretation Comments POCT GLU (test code = 3128075150) 312 mg/dL 70-110 H Lab Interpretation (test code = Abnormal 16565-2) [facility] [id number] 07:02:35 Test Item Value Reference Interpretation Comments Range TROPONIN I (test 0.004 ng/mL See_Comment [Automated code = 7893427972) message] The system which generated this result [...] biotin. Lab Interpretation Normal (test code = 10118-1) [facility] 06:49:16 Test Item Value Reference Range Interpretation Comments LIPASE (test code = 8709166108) 23 U/L 0-220 Lab Interpretation (test code = Normal 79101-2) [facility] WITH [id number] 03:49:28 Test Item Value Reference Range Interpretation Comments WBC (test code = See_Comment [Automated 6690-2) message] The sy stem which generated this result transmitted reference range : 4.20 - 10.70 10*3/?L. The reference range was not used to interpret this result as normal/abnormal . RBC (test code = See_Comment [Automated 789-8) message] The sy stem which [...] (test code = 36.2 fL 38.5-51.6 L 05773-9) RDW-CV (test code = 12.1 % 12.1-15.4 788-0) PLT (test code = See_Comment [Automated 777-3) message] The sy stem which generated this result transmitted reference range : 150 - 328 10*3/ ?L. The reference r aixa was not used to interpret this result as normal/abnormal . MPV (test code = 9.9 fL 9.8-13.0 33510-9) IPF % (test code = 3.1 % 1.2-10.7 Platelet count 0206740111) measured by fluorescence method. NRBC/100 WBC (test See_Comment [Automat ed code = 3616653811) message] The system which generated this result transmitted reference range : 0.0 - 10.0 /100 WBCs. The refer ence range was not u sed to interpret th is result as normal/abnormal . NRBC x10^3 (test code <0.01 See_Comment [Auto mated = 0289234205) message] The s ystem which generated this result transmitted reference range : 10*3/?L. The reference range was not used to interpret this result as normal/abnormal . GRAN MAT (NEUT) % 77.8 % (test code = 770-8) IMM GRAN % (test code 0.30 % = 4184270163) LYMPH % (test code = 17.0 % 736-9) MONO % (test code = 4.2 % 5905-5) EOS % (test code = 0.3 % 713-8) BASO % (test code = 0.4 % 706-2) GRAN MAT x10^3(ANC) 5.87 10*3/uL 1.99-6.95 (test code = 6932363363) IMM GRAN x10^3 (test <0.03 0.00-0.06 code = 4965114474) LYMPH x10^3 (test code 1.28 10*3/uL 1.09-3.23 = 731-0) MONO x10^3 (test code 0.32 10*3/uL 0.36-1.02 L = 742-7) EOS x10^3 (test code = <0.03 0.06-0.53 L 711-2) BASO x10^3 (test code 0.03 10*3/uL 0.01-0.09 = 704-7) Lab Interpretation Abnormal (test code = 96716-6) [facility]. METABOLIC PANEL (56890)2021-07-06 03:36:26 Test Item Value Reference Range Interpretation Comments NA (test code = 135 mmol/L 135-145 3241661199) K (test code = 4.2 mmol/L 3.5-5.0 5319478924) CL (test code = 100 mmol/L 98-108 6611653531) CO2 TOTAL (test code = 25 mmol/L 23-31 6701728291) AGAP (test code = 2-16 4202663340) BUN (test code = 31 mg/dL 7-23 H 3464661312) GLUCOSE (test code = 337 mg/dL 70-110 H 6344159698) CREATININE (test code = 1.40 mg/dL 0.60-1.25 H 8925512160) TOTAL BILI (test code = 1.0 mg/dL 0.1-1.5 5941363343) CALCIUM (test code = 9.2 mg/dL 8.6-10.6 1239496701) T PROTEIN (test code = 7.7 g/dL 6.3-8.2 0215926871) ALBUMIN (test code = 4.8 g/dL 3.5-5.0 1517240118) ALK PHOS (test code = 79 U/L 34-122 8116779285) ALTv (test code = 26 U/L 5-50 1742-6) AST(SGOT) (test code = 25 U/L 13-40 8072893551) eGFR (test code = mL/min/1.73m2 8457056630) PARKER (test code = PARKER) Association of [...] tests). Lab Interpretation Abnormal (test code = 07988-0) [facility] [id number] 02:01:00 Test Item Value Reference Range Interpretation Comments CULTURE (BEAKER) (test No growth in 5 days code = 1095) BLOOD [id number] 02:01:00 Test Item Value Reference Range Interpretation Comments CULTURE (BEAKER) (test No growth in 5 days code = 1095) MRSA [id number] 09:59:00 Test Item Value Reference Range Interpretation Comments CULTURE (BEAKER) (test code No MRSA isolated = 1095) TISSUE [id number] 15:35:00Surgical Pathology Report Case: [id number] Authorizing Provider: Won Randall MD Collected: 10/17/2018 0823 Ordering Location: [address] Received: 10/17/2018 1401 Service Pathologist: Natividad Shrestha MD Specimens: A) - Duodenum, random bx B) - Biopsy, Gastric, body and antrum A. DUODENUM , RANDOM BIOPSY- NO DIAGNOSTIC ALTERATIONB. STOMACH, BODY AND ANTRUM, BIOPSY- CHRONIC INACTIVE GASTRITIS, MILD- NO INTESTINAL METAPLASIA, DYSPLASIA OR INVASIVE CARCINOMA IDENTIIFIED- NO HELICOBACTER PYLORI LIKE ORGANISMS IDENTIFIED ON WARTHIN STARRY STAIN Signing Pathologist Direct Phone Line: [phone] signed by Natividad Shrestha MD on 10/18/2018 at 3:35 [id number] x 2, [id number] and postop diagnosis: intractable vomiting, presence of nausea not specified, unspecified vomiting type A.Duodenum random biopsy; B. Biopsy, gastric, body and antrumA. Received in formalin labeled with the patient's name, accession number and "duodenum" are three irregular woo soft tissue fragments ranging0.1-0.3 cm which are submitted in toto in A1. B. .Received in formalin labeled with the patient's name, accession number and "biopsy, gastric" are four irregular woo soft tissue fragments ranging 0.2-0.3 cm which are submitted in toto in B1. CG/pl Performed.The interpretation of this case included theuse of immunohistochemistry or special stains.Warthin Starry- negativeControl Slides Examined: In-house known positive controls were evaluated along with the test tissue. These control slides run alongside of the patients sample show appropriate staining. Internal positive and negative controls when available are evaluated Immunohistochemistry technical testing was performed at [facility], Pathology Laboratory where it was developed [...] to perform high complexity clinical laboratory testing.POCT-GLUCOSE [id number] 10:09:00 Test Item Value Reference Range Interpretation Comments POC-GLUCOSE METER 118 mg/dL 70-110 H TESTED AT [place] [address] ([facility]) (test code = [facility] [address] [id number] 06:56:00 Test Item Value Reference Range Interpretation Comments MAGNESIUM (BEAKER) (test code = 2.0 mg/dL 1.6-2.6 627) BASIC METABOLIC [id number] 06:40:00 Test Item Value Reference Range Interpretation [...] NOT APPLICABLE FOR DIALYSIS PATIEN TS. POCT-GLUCOSE [id number] 20:40:00 Test Item Value Reference Range Interpretation Comments POC-GLUCOSE METER 172 mg/dL 70-[address] [facility] 6720 (BEAKER) (test code = CAROLA Roberson [facility] 1538) [id number] POCT-GLUCOSE [id number] 18:25:00 Test Item Value Reference Range Interpretation Comments POC-GLUCOSE METER 200 mg/dL 70-110 H TESTED AT [place] [address] ([facility]) (test code = CAROLA Roberson [facility] 1538) [id number] POCT-GLUCOSE [id number] 15:26:00 Test Item Value Reference Range Interpretation Comments POC-GLUCOSE METER 232 mg/dL 70-110 H TESTED AT [place] [address] ([facility]) (test code = CARLOSIN Karol [facility] 1538) [address] POCT-GLUCOSE [id number] 13:00:00 Test Item Value Reference Range Interpretation Comments POC-GLUCOSE METER 228 mg/dL 70-110 H TESTED AT [place] [address] ([facility]) (test code = [facility] Karol [facility] 1538) [address] POCT-GLUCOSE [id number] 10:43:00 Test Item Value Reference Range Interpretation Comments POC-GLUCOSE METER 207 mg/dL 70-110 H TESTED AT [place] [address] ([facility]) (test code = [facility] Karol [facility] 1538) 26549 POCT-GLUCOSE [id number] 09:16:00 Test Item Value Reference Range Interpretation Comments POC-GLUCOSE METER 269 mg/dL 70-110 H TESTED AT [place] [address] ([facility]) (test code = [facility] 1538) 75690 POCT-GLUCOSE [id number] 07:26:00 Test Item Value Reference Range Interpretation Comments POC-GLUCOSE METER 239 mg/dL 70-110 H TESTED AT [place] [address] ([facility]) (test code = [facility] 1538) [address] BASIC METABOLIC [id number] 06:42:00 Test Item Value Reference Range Interpretation [...] S NOT APPLICABLE FOR DIALYSIS PATIEN TS. [id number] 06:42:00 Test Item Value Reference Range Interpretation Comments PHOSPHORUS (BEAKER) (test code = 2.0 mg/dL 2.3-4.7 L 604) [id number] 06:42:00 Test Item Value Reference Range Interpretation Comments MAGNESIUM (BEAKER) (test code = 2.3 mg/dL 1.6-2.6 627) CBC W/PLT COUNT & AUTO [id number] 06:34:00 Test Item Value Reference Range Interpretation [...] PERCENT (BEAKER) (test code = 2801) POCT-GLUCOSE [id number] 22:23:00 Test Item Value Reference Range Interpretation Comments POC-GLUCOSE METER 237 mg/dL 70-110 H TESTED AT [place] [address] ([facility]) (test code = CAROLA Roberson [facility] 1538) 68575 POCT-GLUCOSE [id number] 20:39:00 Test Item Value Reference Range Interpretation Comments POC-GLUCOSE METER 298 mg/dL 70-110 H TESTED AT [place] [address] ([facility]) (test code = CAROLA Roberson [facility] 1538) 01851 POCT-GLUCOSE [id number] 17:49:00 Test Item Value Reference Range Interpretation Comments POC-GLUCOSE METER 255 mg/dL 70-110 H TESTED AT [place] [address] ([facility]) (test code = CAROLA Roberson [facility] 1538) 40870 POCT-GLUCOSE [id number] 13:35:00 Test Item Value Reference Range Interpretation Comments POC-GLUCOSE METER 190 mg/dL 70-110 H TESTED AT [place] [address] ([facility]) (test code = [place] Roberson [facility] 1538) 98153 POCT-GLUCOSE [id number] 12:31:00 Test Item Value Reference Range Interpretation Comments POC-GLUCOSE METER 204 mg/dL 70-110 H TESTED AT [place] [address] ([facility]) (test code = [place]A Roberson [facility] 1538) 51402 POCT-GLUCOSE [id number] 11:38:00 Test Item Value Reference Range Interpretation Comments POC-GLUCOSE METER 165 mg/dL 70-[address] [facility] 6720 (BEAKER) (test code = CAROL[place] Rob[place] 1538) [address] POCT-GLUCOSE [id number] 10:35:00 Test Item Value Reference Range Interpretation Comments POC-GLUCOSE METER 231 mg/dL 70-[address] [facility] 6720 (BEAKER) (test code = CAROLA Roberson [place] 1538) [address] BASIC METABOLIC [id number] 09:52:00 Test Item Value Reference Range Interpretation [...] S NOT APPLICABLE FOR DIALYSIS PATIEN TS. [id number] 09:52:00 Test Item Value Reference Range Interpretation Comments PHOSPHORUS (BEAKER) (test code = 2.0 mg/dL 2.3-4.7 L 604) [id number] 09:52:00 Test Item Value Reference Range Interpretation Comments MAGNESIUM (BEAKER) (test code = 2.2 mg/dL 1.6-2.6 627) POCT-GLUCOSE [id number] 09:28:00 Test Item Value Reference Range Interpretation Comments POC-GLUCOSE METER 213 mg/dL 70-[address] [facility] 6720 (BEAKER) (test code = CAROLA Roberson [place] 1538) [address] RAD, ABDOMEN/KUB, 1 VIEW [id number] 09:12:00Reason for exam:->recurrent vomitingShould this be performed [...] Reading Location: [facility] Radiology Reading Room POCT-GLUCOSE [id number] 08:41:00 Test Item Value Reference Range Interpretation Comments POC-GLUCOSE METER 206 mg/dL 70-[address] [facility] 6720 [facility] (test code = [place]OLA Roberson [facility] 1538) [address]24 POCT-GLUCOSE [id number] 07:46:00 Test Item Value Reference Range Interpretation Comments POC-GLUCOSE METER 203 mg/dL 70-[address] [facility] 6720 (BEAKER) (test code = [place]A Roberson [facility] 1538) [address] [id number] 07:14:00 Test Item Value Reference Range Interpretation Comments MAGNESIUM (BEAKER) 2.2 mg/dL 1.6-2.6 Specimen slightly (test code = 627) hemolyzed [id number] 07:14:00 Test Item Value Reference Range Interpretation Comments PHOSPHORUS (BEAKER) 2.4 mg/dL 2.3-4.7 Specimen slightly (test code = 604) hemolyzed BASIC METABOLIC [id number] 07:14:00 Test Item Value Reference Range Interpretation [...] APPLICABLE FOR DIALYSIS PATIEN TS. LACTIC ACID, [id number] 06:58:00 Test Item Value Reference Range Interpretation Comments LACTATE BLOOD ARTERIAL (2) 1.0 mmol/L 0.5-2.2 (BEAKER) (test code = 2874) CBC W/PLT COUNT & AUTO [id number] 06:47:00 Test Item Value Reference Range Interpretation [...] (BEAKER) (test code = 2801) HEMOGLOBIN AND [id number] 06:42:00 Test Item Value Reference Range Interpretation Comments HEMOGLOBIN (BEAKER) (test code = 11.2 GM/DL 13.7-17.5 L 410) HEMATOCRIT (BEAKER) (test code = 33.1 % 40.1-51.0 L 411) POCT-GLUCOSE [id number] 06:22:00 Test Item Value Reference Range Interpretation Comments POC-GLUCOSE METER 193 mg/dL 70-110 H TESTED AT [place] [address] [facility] (test code = [place] 1538) 6[address] POCT-GLUCOSE [id number] 05:31:00 Test Item Value Reference Range Interpretation Comments POC-GLUCOSE METER 185 mg/dL 70-110 H TESTED AT [place] [address] ([facility] (test code = [place] 1538) 54455 POCT-GLUCOSE [id number] 04:02:00 Test Item Value Reference Range Interpretation Comments POC-GLUCOSE METER 191 mg/dL 70-110 H TESTED AT [place] [address] ([facility] (test code = [place] 1538) 76758 POCT-GLUCOSE [id number] 03:08:00 Test Item Value Reference Range Interpretation Comments POC-GLUCOSE METER 170 mg/dL 70-[address] [facility] 6720 (BEAKER) (test code = [place]A Roberson [facility] 1538) 78579 POCT-GLUCOSE [id number] 02:24:00 Test Item Value Reference Range Interpretation Comments POC-GLUCOSE METER 155 mg/dL 70-[address] [facility] 6720 (BEAKER) (test code = [place] Kar[place] [facility] 1538) 20458 POCT-GLUCOSE [id number] 01:43:00 Test Item Value Reference Range Interpretation Comments POC-GLUCOSE METER 158 mg/dL 70-[address] [facility] 6720 (BEAKER) (test code = [facility] Kar[place] [facility] 1538) 57737 BASIC METABOLIC [id number] 00:59:00 Test Item Value Reference Range Interpretation [...] S NOT APPLICABLE FOR DIALYSIS PATIEN TS. [id number] 00:58:00 Test Item Value Reference Range Interpretation Comments MAGNESIUM (BEAKER) 2.4 mg/dL 1.6-2.6 Specimen slightly (test code = 627) hemolyzed [id number] 00:58:00 Test Item Value Reference Range Interpretation Comments PHOSPHORUS (BEAKER) 1.6 mg/dL 2.3-4.7 L Specimen slightly (test code = 604) hemolyzed HEMOGLOBIN AND [id number] 00:31:00 Test Item Value Reference Range Interpretation Comments HEMOGLOBIN (BEAKER) (test code = 11.9 GM/DL 13.7-17.5 L 410) HEMATOCRIT (BEAKER) (test code = 34.5 % 40.1-51.0 L 411) POCT-GLUCOSE [id number] 00:30:00 Test Item Value Reference Range Interpretation Comments POC-GLUCOSE METER 188 mg/dL 70-[address] [facility] 67 (BEAKER) (test code = [facility] 1538) 42752 POCT-GLUCOSE [id number] 23:07:00 Test Item Value Reference Range Interpretation Comments POC-GLUCOSE METER 191 mg/dL 70-110 H TESTED AT [place] [address] (BEAKER) (test code = [facility] 1538) 64680 POCT-GLUCOSE [id number] 22:03:00 Test Item Value Reference Range Interpretation Comments POC-GLUCOSE METER 205 mg/dL 70-110 H TESTED AT [place] [address] (BEAKER) (test code = [facility] 1538) 49452 BASIC METABOLIC [id number] 21:06:00 Test Item Value Reference Range Interpretation [...] APPLICABLE FOR DIALYSIS PATIEN TS. VANCOMYCIN LEVEL, [id number] 21:04:00 Test Item Value Reference Range Interpretation Comments VANCOMYCIN TROUGH (BEAKER) (test 5.8 ug/mL 10.0-20.0 L code = 522) If level is >20, hold scheduled vancomycin dose and contact PharmD/MD. Thank youPOCT-GLUCOSE [id number] 21:00:00 Test Item Value Reference Range Interpretation Comments POC-GLUCOSE METER 202 mg/dL 70-110 H TESTED AT [place] [address] ([facility] (test code = [facility] 1538) 84814 POCT-GLUCOSE [id number] 20:08:00 Test Item Value Reference Range Interpretation Comments POC-GLUCOSE METER 180 mg/dL 70-110 H TESTED AT [place] [address] ([facility]) (test code = [facility] 1538) 72202 POCT-GLUCOSE [id number] 18:39:00 Test Item Value Reference Range Interpretation Comments POC-GLUCOSE METER 175 mg/dL 70-110 H TESTED AT [place] [address] ([facility] (test code = [facility] 1538) 52302 POCT-GLUCOSE [id number] 17:22:00 Test Item Value Reference Range Interpretation Comments POC-GLUCOSE METER 209 mg/dL 70-110 H TESTED AT [place] [address] ([facility] (test code = [facility] 1538) 66433 URINALYSIS W/ REFLEX URINE [id number] 16:58:00 Test Item Value Reference Range Interpretation [...] = Rare 1574) SOURCE(BEAKER) (test code = 0373) HEMOGLOBIN AND [id number] 16:36:00 Test Item Value Reference Range Interpretation Comments HEMOGLOBIN (BEAKER) (test code = 13.0 GM/DL 13.7-17.5 L 410) HEMATOCRIT (BEAKER) (test code = 37.3 % 40.1-51.0 L 411) POCT-GLUCOSE [id number] 16:20:00 Test Item Value Reference Range Interpretation Comments POC-GLUCOSE METER 217 mg/dL 70-[address] [facility] 6720 (BEAKER) (test code = [facility] 1538) 86570 BASIC METABOLIC [id number] 16:19:00 Test Item Value Reference Range Interpretation [...] S NOT APPLICABLE FOR DIALYSIS PATIEN TS. [id number] 16:15:00 Test Item Value Reference Range Interpretation Comments PHOSPHORUS (BEAKER) (test code = 3.4 mg/dL 2.3-4.7 604) [id number] 16:15:00 Test Item Value Reference Range Interpretation Comments MAGNESIUM (BEAKER) (test code = 2.1 mg/dL 1.6-2.6 627) POCT-GLUCOSE [id number] 15:13:00 Test Item Value Reference Range Interpretation Comments POC-GLUCOSE METER 205 mg/dL 70-[address] [facility] 67 (BEAKER) (test code = [facility] 1538) 52635 POCT-GLUCOSE [id number] 14:17:00 Test Item Value Reference Range Interpretation Comments POC-GLUCOSE METER 154 mg/dL 70-110 H TESTED AT [place] [address] (BEAKER) (test code = [facility] 1538) 35744 POCT-GLUCOSE [id number] 13:34:00 Test Item Value Reference Range Interpretation Comments POC-GLUCOSE METER 144 mg/dL 70-110 H TESTED AT [place] [address] (BEAKER) (test code = [facility] 1538) 14346 BASIC METABOLIC [id number] 12:52:00 Test Item Value Reference Range Interpretation [...] S NOT APPLICABLE FOR DIALYSIS PATIEN TS. [id number] 12:45:00 Test Item Value Reference Range Interpretation Comments PHOSPHORUS (BEAKER) (test code = 1.8 mg/dL 2.3-4.7 L 604) [id number] 12:45:00 Test Item Value Reference Range Interpretation Comments MAGNESIUM (BEAKER) (test code = 2.4 mg/dL 1.6-2.6 627) BLOOD GAS, [id number] 12:26:00 Test Item Value Reference Range Interpretation [...] code = 1819) 21.0 % HEMOGLOBIN AND [id number] 12:24:00 Test Item Value Reference Range Interpretation Comments HEMOGLOBIN (BEAKER) (test code = 11.9 GM/DL 13.7-17.5 L 410) HEMATOCRIT (BEAKER) (test code = 34.2 % 40.1-51.0 L 411) POCT-GLUCOSE [id number] 12:23:00 Test Item Value Reference Range Interpretation Comments POC-GLUCOSE METER 170 mg/dL 70-110 H TESTED AT [facility] 6720 (BEAKER) (test code = [place] 1538) 25362 POCT-GLUCOSE [id number] 10:54:00 Test Item Value Reference Range Interpretation Comments POC-GLUCOSE METER 182 mg/dL 70-110 H TESTED AT [facility] 6720 (BEAKER) (test code = [place] 1538) 10416 BASIC METABOLIC [id number] 09:55:00 Test Item Value Reference Range Interpretation [...] NOT APPLICABLE FOR DIALYSIS PATIEN TS. POCT-GLUCOSE [id number] 09:44:00 Test Item Value Reference Range Interpretation Comments POC-GLUCOSE METER 217 mg/dL 70-[address] [facility] 6720 (BEAKER) (test code = CAROLA Roberson [place] 153) [address] BLOOD GAS, [id number] 08:28:00 Test Item Value Reference Range Interpretation [...] (test code = 1819) 21.0 % POCT-GLUCOSE [id number] 08:24:00 Test Item Value Reference Range Interpretation Comments POC-GLUCOSE METER 207 mg/dL 70-[address] [facility] 6720 (BEAKER) (test code = [facility] [place] 1538) [address] POCT-GLUCOSE [id number] 06:39:00 Test Item Value Reference Range Interpretation Comments POC-GLUCOSE METER 203 mg/dL 70-110 H TESTED AT [place] [id number] (BEAKER) (test code = [facility] Karol [facility] 1538) [address]76 BASIC METABOLIC [id number] 06:37:00 Test Item Value Reference Range Interpretation [...] NOT APPLICABLE FOR DIALYSIS PATIEN TS. POCT-GLUCOSE [id number] 05:26:00 Test Item Value Reference Range Interpretation Comments POC-GLUCOSE METER 253 mg/dL 70-[address] [facility] 6720 (BEAKER) (test code = [facility] 1538) 58357 BASIC METABOLIC [id number] 05:07:00 Test Item Value Reference Range Interpretation [...] S NOT APPLICABLE FOR DIALYSIS PATIEN TS. [id number] 05:07:00 Test Item Value Reference Range Interpretation Comments MAGNESIUM (BEAKER) (test code = 2.0 mg/dL 1.6-2.6 627) [id number] 05:07:00 Test Item Value Reference Range Interpretation Comments PHOSPHORUS (BEAKER) (test code = 2.8 mg/dL 2.3-4.7 604) BLOOD GAS, [id number] 05:01:00 Test Item Value Reference Range Interpretation [...] code = 1819) 21.0 % LACTIC ACID, [id number] 04:58:00 Test Item Value Reference Range Interpretation Comments LACTATE BLOOD ARTERIAL (2) 0.6 mmol/L 0.5-2.2 (BEAKER) (test code = 2874) CBC W/PLT COUNT & AUTO [id number] 04:57:00 Test Item Value Reference Range Interpretation [...] PERCENT (BEAKER) (test code = 2801) POCT-GLUCOSE [id number] 04:20:00 Test Item Value Reference Range Interpretation Comments POC-GLUCOSE METER 220 mg/dL 70-[address] [facility] 6720 ([facility]) (test code = [place]A Roberson [facility] 1538) 73783 POCT-GLUCOSE [id number] 03:44:00 Test Item Value Reference Range Interpretation Comments POC-GLUCOSE METER 243 mg/dL 70-110 H TESTED AT [place] [address] ([facility]) (test code = [facility] Karol [facility] 1538) [address]53 POCT-GLUCOSE [id number] 03:06:00 Test Item Value Reference Range Interpretation Comments POC-GLUCOSE METER 196 mg/dL 70-110 H TESTED AT [place] [address] ([facility]) (test code = [facility] 1538) 15373 TROPONIN [id number] 03:00:00 Test Item Value Reference Range Interpretation Comments TROPONIN I ([facility]) (test code = 0.02 ng/mL 0.00-0.03 397) [...] acute neurological disease, and persistent tachyarrhythmia.BASIC METABOLIC [id number] 02:57:00 Test Item Value Reference Range Interpretation [...] NOT APPLICABLE FOR DIALYSIS PATIEN TS. POCT-GLUCOSE [id number] 01:21:00 Test Item Value Reference Range Interpretation Comments POC-GLUCOSE METER 195 mg/dL 70-[address] [facility] 6720 (BEAKER) (test code = [place] 1538) [address] TROPONIN [id number] 00:47:00 Test Item Value Reference Range Interpretation [...] failure, acidosis, acute neurological disease, and persistent tachyarrhythmia.[id number] 00:44:00 Test Item Value Reference Range Interpretation Comments PHOSPHORUS (BEAKER) (test code = 1.4 mg/dL 2.3-4.7 LL 604) BLOOD GAS, [id number] 00:41:00 Test Item Value Reference Range Interpretation [...] code = 1819) 21.0 % BASIC METABOLIC [id number] 00:40:00 Test Item Value Reference Range Interpretation [...] S NOT APPLICABLE FOR DIALYSIS PATIEN TS. [id number] 00:40:00 Test Item Value Reference Range Interpretation Comments MAGNESIUM (BEAKER) (test code = 2.1 mg/dL 1.6-2.6 627) HEMOGLOBIN AND [id number] 00:21:00 Test Item Value Reference Range Interpretation Comments HEMOGLOBIN (BEAKER) (test code = 12.3 GM/DL 13.7-17.5 L 410) HEMATOCRIT (BEAKER) (test code = 34.9 % 40.1-51.0 L 411) POCT-GLUCOSE [id number] 00:09:00 Test Item Value Reference Range Interpretation Comments POC-GLUCOSE METER 234 mg/dL 70-[address] [facility] 6720 (BEAKER) (test code = [place] 9797) 6[address] STREP PNEUMONIAE [id number] 00:07:00 Test Item Value Reference Range Interpretation [...] detection limit of the test. LEGIONELLA ANTIGEN, [id number] 00:07:00 Test Item Value Reference Range Interpretation Comments L. PNEUMOPHILA Negative - see Negative fo r L. SEROGP 1 UR AG comment pneumophila (BEAKER) (test code serogrou p 1 antigen, = 1156) suggesting no r ecent or current infe ction with this serog roup. Legionellosis c annot be ruled out si nce other serogroup s and species may cau se disease. POCT-GLUCOSE [id number] 23:15:00 Test Item Value Reference Range Interpretation Comments POC-GLUCOSE METER 247 mg/dL 70-[address] [facility] 6720 (BEAKER) (test code = [place] 1538) [address] BASIC METABOLIC [id number] 23:09:00 Test Item Value Reference Range Interpretation [...] APPLICABLE FOR DIALYSIS PATIEN TS. BLOOD GAS, [id number] 22:52:00 Test Item Value Reference Range Interpretation [...] (test code = 1819) 21.0 % POCT-GLUCOSE [id number] 22:25:00 Test Item Value Reference Range Interpretation Comments POC-GLUCOSE METER 270 mg/dL 70-[address] [facility] 6720 [facility] (test code = [place] 1538) [address] POCT-GLUCOSE [id number] 21:28:00 Test Item Value Reference Range Interpretation Comments POC-GLUCOSE METER 312 mg/dL 70-[address] [facility] 6720 ([facility]) (test code = [place] 1538) 93218 LACTIC ACID, [id number] 20:58:00 Test Item Value Reference Range Interpretation Comments LACTATE BLOOD ARTERIAL (2) 1.7 mmol/L 0.5-2.2 (BEAKER) (test code = 2874) BASIC METABOLIC [id number] 20:51:00 Test Item Value Reference Range Interpretation [...] NOT APPLICABLE FOR DIALYSIS PATIEN TS. POCT-GLUCOSE [id number] 20:37:00 Test Item Value Reference Range Interpretation Comments POC-GLUCOSE METER 334 mg/dL 70-110 H TESTED AT [place] [address] ([facility]) (test code = [place] 1538) [address] RAD, CHEST, 1 VIEW, NON [id number] 20:13:00Post-intubationReason for exam:- >r/o pnaShould this be performed at the bedside?->YesFINAL REPORT History: "Rule out pneumonia". Comparison: None. Findings: A single view of the chest is submitted. The cardiomediastinal contours are unremarkable. There is no focal consolidation, pneumothorax, large pleural effusion or evidence of overt pulmonary edema. There is noacute bony abnormality. Impression: No acute abnormality. Signed: Anand Voraort Verified Dimitri e/Time: 10/14/2018 20:13:51 Reading Location: [address] Reading Room POCT- GLUCOSE [id number] 19:39:00 Test Item Value Reference Range Interpretation Comments POC-GLUCOSE METER 432 mg/dL 70-110 HH TESTED AT [place] [address] ([facility]) (test code = CAROLA Roberson [facility] 1538) 35405 HEMOGLOBIN [id number] 19:16:00 Test Item Value Reference Range Interpretation Comments HEMOGLOBIN A1C ([facility]) (test code = 10.2 % 4.3-6.1 H 368) [id number] 18:52:00 Test Item Value Reference Range Interpretation Comments PROCALCITONIN ([facility]) (test code 5.14 ng/mL <0.05 H = 3036) SEPSIS RISK (ng/mL)Low: 0.05-0.50Intermediate: 0.51-2.00High: >=2.01CBC W/PLT COUNT & AUTO [id number] 18:37:00 Test Item Value Reference Range Interpretation Comments WHITE BLOOD CELL COUNT ([facility]) 24.9 K/ L 3.5-10.5 H (test code [...] (BEAKER) (test code = 2801) BASIC METABOLIC [id number] 18:29:00 Test Item Value Reference Range Interpretation [...] APPLICABLE FOR DIALYSIS PATIEN TS. HEPATIC FUNCTION [id number] 18:29:00 Test Item Value Reference Range Interpretation [...] = 23 U/L 6-55 347) LACTIC ACID, [id number] 18:24:00 Test Item Value Reference Range Interpretation Comments LACTATE BLOOD ARTERIAL (2) 3.0 mmol/L 0.5-2.2 H (BEAKER) (test code = 5614) BLOOD GAS, [id number] 17:52:00 Test Item Value Reference Range Interpretation [...] 21.0 % CBC W/PLT COUNT & AUTO [id number] 17:50:00 Test Item Value Reference Range Interpretation [...] 3438) Received comment: User comments: Slide comments:POCT-GLUCOSE [id number] 17:49:00 Test Item Value Reference Range Interpretation Comments POC-GLUCOSE METER > mg/dL 70-110 HH OUTSIDE ME ASURING (BEAKER) (test code [facility] AT [facility] 6720 = 1538) [facility] [place] [place] [address] KETONE, [id number] 17:13:00 Test Item Value Reference Range Interpretation Comments KETONES, BLOOD (BEAKER) (test code 5.4 mmol/L <0.4 H = 1103) TSH/FREE T4 IF [id number] 17:10:00 Test Item Value Reference Range Interpretation Comments THYROID STIMULATING HORMONE 0.64 uIU/mL 0.35-4.94 (BEAKER) (test code = 772) BASIC METABOLIC [id number] 16:57:00 Test Item Value Reference Range Interpretation [...] NOT APPLICABLE FOR DIALYSIS PATIEN TS. TROPONIN [id number] 16:56:00 Test Item Value Reference Range Interpretation [...] failure, acidosis, acute neurological disease, and persistent tachyarrhythmia.[id number] 16:50:00 Test Item Value Reference Range Interpretation Comments MAGNESIUM (BEAKER) 2.4 mg/dL 1.6-2.6 Specimen slightly (test code = 627) hemolyzed [id number] 16:50:00 Test Item Value Reference Range Interpretation Comments PHOSPHORUS (BEAKER) 5.6 mg/dL 2.3-4.7 H Specimen slightly (test code = 604) hemolyzed [id number] 16:50:00 Test Item Value Reference Range Interpretation Comments AMYLASE (BEAKER) (test 47 U/L 25-125 Speci men slightly code = 349) hemolyzed [id number] 16:50:00 Test Item Value Reference Range Interpretation Comments LIPASE (BEAKER) (test code = 749) 199 U/L 8-78 H PROTHROMBIN [id number] 16:47:00 Test Item Value Reference Range Interpretation [...] is 2.5-3.5 for patients wiht mechanical heart valves.[id number] 16:47:00 Test Item Value Reference Range Interpretation Comments PARTIAL THROMBOPLASTIN TIME 23.5 seconds 22.5-36.0 (BEAKER) (test code = 760) [id number] 16:47:00 Test Item Value Reference Range Interpretation Comments FIBRINOGEN LEVEL (BEAKER) (test 284 mg/dl 225-434 code = 658) LACTIC ACID, [id number] 16:44:00 Test Item Value Reference Range Interpretation Comments LACTATE BLOOD VENOUS 4.2 mmol/L 0.5-2.2 H Specime n slightly (2) (BEAKER) (test hemolyzed code = 3843) HEMOGLOBIN AND [id number] 16:34:00 Test Item Value Reference Range Interpretation Comments HEMOGLOBIN (BEAKER) (test code = 14.5 GM/DL 13.7-17.5 410) HEMATOCRIT (BEAKER) (test code = 42.9 % 40.1-51.0 411) POTASSIUM-STAT [id number] 16:21:00 Test Item Value Reference Range Interpretation Comments POTASSIUM (BEAKER) (test code = 7.0 meq/L 3.6-5.5 HH 379) GLUCOSE-STAT [id number] 16:21:00 Test Item Value Reference Range Interpretation Comments GLUCOSE RANDOM (BEAKER) (test code 650 mg/dL 70-110 HH = 652) BLOOD GAS, [id number] 16:21:00 Test Item Value Reference Range Interpretation [...] code = 1819) 21.0 % SODIUM NA-STAT [id number] 16:15:00 Test Item Value Reference Range Interpretation Comments SODIUM (BEAKER) (test code = 381) 142 meq/L 135-148 HGB/HCT (H&H) - STAT [id number] 16:15:00 Test Item Value Reference Range Interpretation Comments HEMOGLOBIN (BEAKER) (test code = 14.8 g/dL 13.0-16.8 410) HEMATOCRIT (BEAKER) (test code = 44.0 % 40.0-50.0 411) POCT-GLUCOSE [id number] 15:42:00 Test Item Value Reference Range Interpretation Comments POC-GLUCOSE METER > mg/dL 70-110 HH OUTSIDE ME ASURING (BEAKER) (test code RANGENot ified YVONNE GARZA/TESTED = 1538) AT [facility] [address] [facility] [place] [address]
[2022-04-17 23:50] LABS: Absolute Lymphocytes (CBC) 1.6 K/uL (0.7-4.9); Hematocrit 34.4 % (39.6-49.0); Lymphocytes % 26.4 % (15.3-44.8); MCV 83.9 fL (80-100); MPV 7.2 fL (7.6-11.3)
[2022-04-18] MEDS ORDERED: NA CHLORIDE 0.9% 100 ML IV ONE ×2 (00:03→09:16)
[2022-04-18] MEDS ORDERED: CEFEPIME 1 GM/VIAL ONE (00:03)
[2022-04-18] MEDS ORDERED: VANCOMYCIN 1 GM/VIAL ONE (00:03)
[2022-04-18 00:05] LABS: Magnesium 2.3 mg/dL (1.6-2.4); Potassium 4.6 mmol/L (3.5-5.1)
[2022-04-18] MEDS ORDERED: NA CHLORIDE 0.9% 250 ML ONE (00:09)
[2022-04-18] MEDS ORDERED: MORPHINE 4 MG/ML SYR ONE (00:47)
[2022-04-18] MEDS ORDERED: NA CHLORIDE 0.9% 1,000 ML ONE ×2 (00:48→01:57)
[2022-04-18] MEDS ORDERED: INSULIN -REGULAR HUMAN 50 UNIT/0.5 ML ML ONE (00:48)
--- NOTE | 2022-04-18 01:10 | ER ---
Nurse's Notes [facility] Name: Enio Bradley Age: 31 yrs Sex: Male : 1990 Arrival Date: 04/17/2022 Time: 22:12 Bed 17 Private MD: Diagnosis: Cellulitis and acute lymphangitis of other parts of limb-left foot;Diabetes mellitus due to underlying condition with foot ulcer-left Presentation: 04/17 22:42 Chief complaint: Patient states: "I have a wound on my toe. it started as an ulcer but vc1 today it looks and smells bad.". Coronavirus screen: Client denies travel out of the [place] in the last 14 days. At this time, the client does not indicate any symptoms associated with coronavirus-19. Ebola Screen: No symptoms or risks identified at this time. Initial Sepsis Screen: Does the patient meet any 2 criteria? HR > 90 bpm. No. Patient's initial sepsis screen is negative. Does the patient have a suspected source of infection? No. Patient's initial sepsis screen is negative. Risk Assessment: Do you want to hurt yourself or someone else? Patient reports no desire to harm self or others. Onset of symptoms is unknown. 22:42 Method Of Arrival: Ambulatory vc1 22:42 Acuity: JAMAL 3 vc1 Triage Assessment: 22:45 General: Appears in no apparent distress. comfortable, Behavior is calm, cooperative, vc1 appropriate for age. Pain: Complains of pain in left first toe Pain does not radiate. Pain currently is 7 out of 10 on a pain scale. EENT: No deficits noted. No signs and/or symptoms were reported regarding the EENT system. Neuro: Level of Consciousness is awake, alert, obeys commands, Oriented to person, place, time, situation, Appropriate for age. Cardiovascular: No deficits noted. Respiratory: Airway is patent Respiratory effort is even, unlabored, Respiratory pattern is regular, symmetrical. GI: No deficits noted. No signs and/or symptoms were reported involving the gastrointestinal system. : No deficits noted. No signs and/or symptoms were reported regarding the genitourinary system. Derm: Wound noted left first toe. Musculoskeletal: No deficits noted. No signs and/or symptoms reported regarding the musculoskeletal system. Historical: - Allergies: 22:44 Clindamycin; vc1 - Home Meds: 22:44 Novolog Flexpen subcutaneous [Active]; Tresiba FlexTouch U-100 subcutaneous [Active]; vc1 - PMHx: 22:44 ADD/ADHD; Diabetes - IDDM; vc1 - PSHx: 22:44 I\\T\\D Right Great toe; vc1 - Immunization history:: Adult Immunizations not up to date, Client reports having NOT received the Covid vaccine. - Social history:: Smoking status: Patient reports the use of cigarette tobacco products, denies chronic smoking, but will smoke occasionally, cigars. Screenin:43 Abuse screen: Denies threats or abuse. Nutritional screening: No deficits noted. vc1 Tuberculosis screening: No symptoms or risk factors identified. 04/18 02:01 [facility] ED Fall Risk Assessment (Adult) History of falling in the last 3 months, pf1 including since admission No falls in past 3 months (0 pts) Confusion or Disorientation No (0 pts) Intoxicated or Sedated No (0 pts) Impaired Gait No (0 pts) Mobility Assist Device Used No (0 pt) Altered Elimination No (0 pt) Score/Fall Risk Level 0 - 2 = Low Risk Oriented to surroundings, Maintained a safe environment, Educated pt \\T\\ family on fall prevention, incl call for assistance when getting out of bed, Assessed \\T\\ reinforced patient's understanding of fall precautions, Provided non-skid footwear, Hourly rounding (assess needs \\T\\ fall precautionary measures) done, Used ambulatory aids as needed (educated on \\T\\ assisted with). Assessment: 04/17 22:50 General: Appears in no apparent distress. comfortable, well groomed, well developed, pf1 Behavior is calm, cooperative, appropriate for age, quiet. 22:50 Pain: Complains of pain in left foot and left first toe Pain currently is 5 out of 10 pf1 on a pain scale. Neuro: No deficits noted. Level of Consciousness is awake, alert, obeys commands, Oriented to person, place, time, situation. Cardiovascular: No deficits noted. Capillary refill < 3 seconds. Respiratory: No deficits noted. Airway is patent Respiratory effort is even, unlabored, Respiratory pattern is regular, symmetrical, Breath sounds are clear bilaterally. GI: No deficits noted. No signs and/or symptoms were reported involving the gastrointestinal system. Abdomen is flat, non-distended, Bowel sounds present X 4 quads. : No deficits noted. No signs and/or symptoms were reported regarding the genitourinary system. EENT: No deficits noted. No signs and/or symptoms were reported regarding the EENT system. Derm: Wound noted left foot and left first toe Reports pain that is 5 out of 10 on a pain scale. Musculoskeletal: No deficits noted. No signs and/or symptoms reported regarding the musculoskeletal system. 23:00 Reassessment: See triage assessment. vc1 04/18 00:00 Reassessment: No changes from previously documented assessment. Patient and/or family vc1 updated on plan of care and expected duration. Pain level reassessed. 01:00 Reassessment: No changes from previously documented assessment. Patient and/or family vc1 updated on plan of care and expected duration. Pain level reassessed. 01:51 General: FSBGL 286. pf1 02:00 Reassessment: No changes from previously documented assessment. Patient and/or family vc1 updated on plan of care and expected duration. Pain level reassessed. Vital Signs: 04/17 21:00 BP 144 / 90; Pulse 85; Resp 18; Pulse Ox 100% ; vc1 22:00 BP 149 / 99; Pulse 90; Resp 16; Pulse Ox 100% on R/A; vc1 22:42 BP 144 / 90; Pulse 93; Resp 16; Temp 98.4(O); Pulse Ox 100% ; Weight 81.65 kg; Height 5 vc1 ft. 10 in. (177.80 cm); Pain 7/10; 23:00 BP 134 / 87; Pulse 93; Resp 16; Pulse Ox 100% on R/A; vc1 04/18 00:00 BP 151 / 94; Pulse 91; Resp 18; Pulse Ox 98% ; vc1 01:00 BP 127 / 77; Pulse 90; Resp 19; Pulse Ox 99% ; vc1 02:00 BP 119 / 68; Pulse 85; Resp 13; Pulse Ox 98% on R/A; vc1 03:00 BP 113 / 70; Pulse 81; Resp 18; Temp 98; Pulse Ox 97% ; Pain 0/10; pf1 04/17 22:42 Body Mass Index 25.83 (81.65 kg, 177.80 cm) vc1 ED Course: 04/17 22:12 Patient arrived in ED. ja2 22:15 Page, Sabas, PA is PHCP. cp 22:15 Jeffry Capone MD is Attending Physician. cp 22:43 Triage completed. vc1 22:46 Patient has correct armband on for positive identification. Bed in low position. Call vc1 light in reach. Pulse ox on. NIBP on. 22:55 Nataliya milian, YVONNE is Primary Nurse. pf1 23:11 XRAY Foot LEFT 3 View In Process Unspecified. EDMS 23:39 Blood Culture Adult (2) Sent. pf1 23:39 Wound Culture Sent. pf1 23:39 Lactate w/ 2H reflex if indic. Sent. pf1 23:39 ESR Sent. pf1 23:39 CRP Sent. pf1 23:39 Basic Metabolic Panel Sent. pf1 23:39 CBC with Diff Sent. pf1 23:39 Magnesium Sent. pf1 04/18 00:00 Missed attempt(s): 20 gauge in left antecubital area. pf1 00:20 Missed attempt(s): 20 gauge in right antecubital area. pf1 00:38 Inserted saline lock: 18 gauge in left antecubital area, using aseptic technique. bb 01:09 Carlos Fernandez MD is Hospitalizing Provider. cp 01:10 Patient admitted, IV remains in place. pf1 01:21 Td Miguel MD is Hospitalizing Provider. cp 01:58 No provider procedures requiring assistance completed. pf1 01:59 Arm band placed on right wrist. pf1 02:37 SARS-COV-2 RT PCR Sent. pf1 Administered Medications: 00:45 Drug: morphine 4 mg Route: IVP; Infused Over: 4 mins; Site: left antecubital; pf1 01:44 Follow up: Response: Marked relief of symptoms; Pain is decreased; RASS: Alert and Calm pf1 (0) 00:45 Drug: NS 0.9% 1000 ml Route: IV; Rate: 1 bolus; Site: left antecubital; pf1 01:43 Follow up: IV Status: Completed infusion; IV Intake: 1000ml pf1 00:45 Drug: Insulin Regular Human 10 units {Co-Signature: jb4 (Jermaine Wolf RN).} Route: IVP; pf1 Site: left antecubital; 01:45 Follow up: Response: No adverse reaction; Blood sugar is lowered pf1 00:51 Drug: Cefepime 1 grams Route: IVPB; Rate: 200 ml/hr; Infused Over: 30 mins; Site: left pf1 antecubital; 01:20 Follow up: IV Status: Completed infusion; IV Intake: 100ml pf1 01:45 Drug: vancoMYCIN 1 grams Route: IVPB; Infused Over: 2 hrs; Site: left antecubital; pf1 03:45 Follow up: Response: No adverse reaction; Marked relief of symptoms pf1 03:45 Follow up: IV Status: Completed infusion; IV Intake: 200ml pf1 01:56 Drug: NS 0.9% 1000 ml Route: IV; Rate: 1 bolus; Site: left antecubital; pf1 03:58 Follow up: IV Status: Completed infusion; IV Intake: 1000ml pf1 Medication: 02:02 VIS not applicable for this client. pf1 Intake: 01:20 IV: 100ml; Total: 100ml. pf1 01:43 IV: 1000ml; Total: 1100ml. pf1 03:45 IV: 200ml; Total: 1300ml. pf1 03:58 IV: 1000ml; Total: 2300ml. pf1 Outcome: 01:10 Decision to Hospitalize by Provider. cp 01:10 Admitted to ER Hold. Please see [facility] for further documentation. pf1 01:10 Condition: stable 01:10 Instructed on the need for admit, Demonstrated understanding of instructions. 11:07 Patient left the ED. ko1 Signatures: Dispatcher [employer] EDMS Zahira Garcia RN RN Sabas Phillips PA PA cp Alexander, Jessica ja2 Kaley Reeves RN RN 1 Silvina Garcia RN RN ko1 Nataliya milian RN RN pf1 Jermaine Wolf RN jb4 Corrections: (The following items were deleted from the chart) 01:44 01:23 SARS-COV-2 Antigen Rapid+I.LAB.BRZ drawn and sent. pf1 EDMS
--- NOTE | 2022-04-18 01:10 | EDPHYS ---
Physician Documentation [facility] Name: Enio Bradley Age: 31 yrs Sex: Male : 1990 Arrival Date: 04/17/2022 Time: 22:12 Bed 17 Private MD: ED Physician Jeffry Capone HPI: 04/17 22:30 This 31 yrs old Male presents to ER via Ambulatory with complaints of Toe Injury. cp 22:30 The patient presents with pain, that is acute, swelling, tenderness, erythema. The cp complaints affect the left foot and left first toe. Context: resulted from diabetic wound of left great toe, the patient can fully bear weight, the patient is able to ambulate, with moderate difficulty. Onset: The symptoms/episode began/occurred 1 week(s) ago. 22:30 Associated signs and symptoms: Pertinent positives: warmth, Pertinent negatives calf cp tenderness, fever, numbness. Historical: - Allergies: 22:44 Clindamycin; vc1 - Home Meds: 22:44 Novolog Flexpen subcutaneous [Active]; Tresiba FlexTouch U-100 subcutaneous [Active]; vc1 - PMHx: 22:44 ADD/ADHD; Diabetes - IDDM; vc1 - PSHx: 22:44 I\T\D Right Great toe; vc1 - Immunization history:: Adult Immunizations not up to date, Client reports having NOT received the Covid vaccine. - Social history:: Smoking status: Patient reports the use of cigarette tobacco products, denies chronic smoking, but will smoke occasionally, cigars. ROS: 22:35 Constitutional: Negative for body aches, chills, fever, poor PO intake. cp 22:35 Eyes: Negative for injury, pain, redness, and discharge. cp 22:35 Cardiovascular: Negative for chest pain, palpitations. 22:35 Respiratory: Negative for cough, shortness of breath, wheezing. 22:35 Abdomen/GI: Negative for abdominal pain, nausea, vomiting, and diarrhea. 22:35 MS/extremity: Positive for erythema, pain, swelling, tenderness, of the left foot and left first toe. 22:35 Neuro: Negative for altered mental status, dizziness, headache, weakness. cp 22:35 All other systems are negative. cp Exam: 22:40 Constitutional: The patient appears in no acute distress, alert, awake, cp non-diaphoretic, non-toxic, well developed, well nourished, uncomfortable. 22:40 Head/Face: Normocephalic, atraumatic. cp 22:40 Eyes: Periorbital structures: appear normal, Conjunctiva: normal, no exudate, no injection, Sclera: no appreciated abnormality, Lids and lashes: appear normal, bilaterally. 22:40 ENT: External ear(s): are unremarkable, Nose: is normal, Mouth: Lips: moist, Oral mucosa: moist, Posterior pharynx: Airway: no evidence of obstruction, patent. 22:40 Neck: ROM/movement: is normal, is supple, without pain, no range of motions limitations. 22:40 Chest/axilla: Inspection: normal. 22:40 Cardiovascular: Rate: normal, Rhythm: regular. 22:40 Respiratory: the patient does not display signs of respiratory distress, Respirations: normal, no use of accessory muscles, no retractions, labored breathing, is not present, Breath sounds: are clear throughout, no decreased breath sounds, no stridor, no wheezing. 22:40 Abdomen/GI: Exam negative for discomfort, distension, guarding, Inspection: abdomen appears normal. 22:40 Back: pain, is absent, ROM is normal. 22:40 Musculoskeletal/extremity: Extremities: noted in the left first toe: erythema, pain, swelling, tenderness, superficial wound noted plantar surface at interphalangeal joint, noted in the left foot: erythema, swelling, tenderness, with advancing erythema proximally to lower left leg, Pulses: noted to be 2+ in the left dorsalis pedis artery, the left foot Sensation intact. 22:40 Neuro: Orientation: to person, place \T\ time. Mentation: is normal. 23:01 ECG was reviewed by the Attending Physician. cp Vital Signs: 21:00 BP 144 / 90; Pulse 85; Resp 18; Pulse Ox 100% ; vc1 22:00 BP 149 / 99; Pulse 90; Resp 16; Pulse Ox 100% on R/A; vc1 22:42 BP 144 / 90; Pulse 93; Resp 16; Temp 98.4(O); Pulse Ox 100% ; Weight 81.65 kg; Height 5 vc1 ft. 10 in. (177.80 cm); Pain 7/10; 23:00 BP 134 / 87; Pulse 93; Resp 16; Pulse Ox 100% on R/A; vc1 04/18 00:00 BP 151 / 94; Pulse 91; Resp 18; Pulse Ox 98% ; vc1 01:00 BP 127 / 77; Pulse 90; Resp 19; Pulse Ox 99% ; vc1 02:00 BP 119 / 68; Pulse 85; Resp 13; Pulse Ox 98% on R/A; vc1 03:00 BP 113 / 70; Pulse 81; Resp 18; Temp 98; Pulse Ox 97% ; Pain 0/10; pf1 04/17 22:42 Body Mass Index 25.83 (81.65 kg, 177.80 cm) vc1 MDM: 04/17 22:35 Patient medically screened. cp 23:00 Differential diagnosis: osteomyelitis, cellulitis, sepsis, DVT. 04/18 01:00 Data reviewed: vital signs, nurses notes, lab test result(s), EKG, radiologic studies, cp plain films. 01:00 Test interpretation: by ED physician or midlevel provider: ECG, plain radiologic cp studies. Counseling: I had a detailed discussion with the patient and/or guardian regarding: the historical points, exam findings, and any diagnostic results supporting the discharge/admit diagnosis, lab results, radiology results, the need for further work-up and treatment in the hospital. Physician consultation: Luis PORTER was contacted at 01:00, regarding admission, to the medical/surgical unit. patient's condition, and will see patient in ED, shortly. 04/17 22: Order name: Basic Metabolic Panel; Complete Time: 00:12 cp 04/18 00:13 Interpretation: Normal except: NA 132; CL 97; GLUC 589; BUN 31; CRE 1.31; GFR 75. cp 04/17 22: Order name: CBC with Diff; Complete Time: 00:50 cp 04/18 00:01 Interpretation: Normal except: RBC 4.10; HGB 12.0; HCT 34.4; MPV 7.2. 04/17 22: Order name: Magnesium; Complete Time: 00:12 cp 04/17 22: Order name: CRP; Complete Time: 00:12 cp 04/18 00:13 Interpretation: Abnormal: C-REACTIVE PROT 35.00. 04/17 22: Order name: ESR; Complete Time: 00:50 cp 04/17 22:26 Order name: Wound Culture 04/17 22:25 Order name: XRAY Foot LEFT 3 View 04/17 22:26 Order name: Lactate w/ 2H reflex if indic.; Complete Time: 00:04 04/18 00:04 Interpretation: LAC 1.1; Reviewed. 04/17 22:26 Order name: Blood Culture Adult (2) 04/18 01:44 Order name: SARS-COV-2 RT PCR EDMS 04/18 02:05 Order name: Glucose, Ancillary Testing EDMS 04/18 05:33 Order name: Glucose, Ancillary Testing EDMS 04/18 09:23 Order name: Glucose, Ancillary Testing EDMS 04/17 22:26 Order name: EKG; Complete Time: 22:27 04/17 22:26 Order name: Cardiac monitoring; Complete Time: 23:04 04/17 22:26 Order name: EKG - Nurse/Tech; Complete Time: 23:39 04/17 22:26 Order name: IV Saline Lock; Complete Time: 04:05 04/17 22:26 Order name: Labs collected and sent; Complete Time: 23:39 04/17 22:26 Order name: O2 Per Protocol; Complete Time: 23:04 04/17 22:26 Order name: O2 Sat Monitoring; Complete Time: 23:04 04/18 01:58 Order name: FSBS; Complete Time: 01:58 pf1 EC/25 23:01 Rate is 92 beats/min. Rhythm is regular. LA interval is normal. QRS interval is normal. cp QT interval is normal. T waves are Inverted in leads III, aVR. Interpreted by me. Reviewed by me. Administered Medications: 04/18 00:45 Drug: morphine 4 mg Route: IVP; Infused Over: 4 mins; Site: left antecubital; pf1 01:44 Follow up: Response: Marked relief of symptoms; Pain is decreased; RASS: Alert and Calm pf1 (0) 00:45 Drug: NS 0.9% 1000 ml Route: IV; Rate: 1 bolus; Site: left antecubital; pf1 01:43 Follow up: IV Status: Completed infusion; IV Intake: 1000ml pf1 00:45 Drug: Insulin Regular Human 10 units {Co-Signature: jb4 (Jermaine Wolf RN).} Route: IVP; pf1 Site: left antecubital; 01:45 Follow up: Response: No adverse reaction; Blood sugar is lowered pf1 00:51 Drug: Cefepime 1 grams Route: IVPB; Rate: 200 ml/hr; Infused Over: 30 mins; Site: left pf1 antecubital; 01:20 Follow up: IV Status: Completed infusion; IV Intake: 100ml pf1 01:45 Drug: vancoMYCIN 1 grams Route: IVPB; Infused Over: 2 hrs; Site: left antecubital; pf1 03:45 Follow up: Response: No adverse reaction; Marked relief of symptoms pf1 03:45 Follow up: IV Status: Completed infusion; IV Intake: 200ml pf1 01:56 Drug: NS 0.9% 1000 ml Route: IV; Rate: 1 bolus; Site: left antecubital; pf1 03:58 Follow up: IV Status: Completed infusion; IV Intake: 1000ml pf1 Disposition Summary: 04/18/22 01:10 Hospitalization Ordered Hospitalization Status: Inpatient Admission cp Condition: Stable cp Problem: new cp Symptoms: have improved cp Bed/Room Type: Standard cp Provider: Td Miguel(04/18/22 01:22) cp Location: Telemetry/MedSurg (Inpatient)(04/18/22 09:05) em1 Room Assignment: 410(04/18/22 09:05) em1 Diagnosis - Cellulitis and acute lymphangitis of other parts of limb - left foot cp - Diabetes mellitus due to underlying condition with foot ulcer - left cp Forms: - Medication Reconciliation Form cp - SBAR form cp Addendum: 04/20/2022 18:10 Co-signature as Attending Physician, Jeffry Capone MD I agree with the assessment and r t plan of care. Signatures: Dispatcher [employer] Truman Ayala em1 Luis Knox, JOSE-C LIFE TEACHER-Cla1 Sabas Alfaro PA PA cp Kaley Reeves RN RN vc1 Jeffry Capone MD MD rt Nataliya milian RN RN pf1 Jermaine Wolf RN jb4 Corrections: (The following items were deleted from the chart) 04/17 23:59 23:57 The patient presents with pain, that is acute, swelling, tenderness, erythema, cp cp 23:59 23:57 The complaints affect the left foot and left first toe, cp cp 23:59 23:57 Context: resulted from diabetic wound of left great toe, the patient can fully cp bear weight, the patient is able to ambulate, with moderate difficulty, cp 23:59 23:57 Onset: The symptoms/episode began/occurred 1 week(s) ago, cp cp 04/18 01:22 01:10 RebeccaCarlos cp cp 01:35 01:10 Telemetry/MedSurg (Inpatient) cp pf1 01:35 01:10 cp pf1 01:44 01:04 SARS-COV-2 Antigen Rapid+I.LAB.BRZ ordered. EDMS EDMS 09:05 01:35 [facility] ER HOLD pf1 em1 09:05 01:35 ERHOLD- pf1 em1
--- NOTE | 2022-04-18 01:55 | P.HP ---
Certification for Inpatient Patient admitted to: Inpatient With expected LOS: >2 Midnights Patient will require the following post-hospital care: None Practitioner: I am a practitioner with admitting privileges, knowledge of patient current condition, hospital course, and medical plan of care. Services: Services provided to patient in accordance with Admission requirements found in Title 42 Section 412.3 of the Code of Federal Regulations Patient History Date of Service: 04/18/22 Reason for admission: Diabetic ulcer History of Present Illness: 31-year-old male with history of type 1 diabetes presents emerged part with concern for infection of his left great toe. He reports that he thought there was a callus there and had breaks in skin off a few days ago and began to look infected yesterday. He had surrounding erythema and the area. His labs were significant for sodium 132 chloride 97 creatinine 1.31 GFR 75 glucose 589 C- reactive protein 35.0. X-ray left foot with no acute abnormalities. Patient was given vancomycin/cefepime in ED, ED provider wishes to admit for diabetic ulceration, hyperglycemia rule out osteomyelitis. Allergies clindamycin Allergy (Verified 02/14/22 17:04) Itching/Hives/Rash Home Medications: Insulin Degludec [Tresiba] 28 units SQ BID 02/09/22 Hydrocodone 10/APAP 325 [[place] 10/325] 1 tab PO Q12H PRN #20 tab 02/10/22 Smz./Tmp. 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 - Family History Mother -: Cancer - Social History Smoking Status: Never smoker Alcohol use: Yes CD- Drugs: No Caffeine use: Yes Place of Residence: Home Review of Systems 10-point ROS is otherwise unremarkable Musculoskeletal: Foot Pain Physical Examination - Physical Exam General: Alert, In no apparent distress, Oriented x3 HEENT: Atraumatic, PERRLA, Mucous membr. moist/pink, EOMI, Sclerae nonicteric Neck: Supple, 2+ carotid pulse no bruit, No LAD, Without JVD or thyroid abnormality Respiratory: Clear to auscultation bilaterally, Normal air movement Cardiovascular: Regular rate/rhythm, Normal S1 S2 Gastrointestinal: Normal bowel sounds, No tenderness Musculoskeletal: No tenderness Integumentary: Erythema, Warmth, Diabetic ulcer (Left great toe) Neurological: Normal speech, Normal strength at 5/5 x4 extr, Normal tone, Normal affect - Studies Laboratory Data (last 24 hrs) 04/17/22 23:20: WBC 5.90, Hgb 12.0 L, Hct 34.4 L, Plt Count 253 04/17/22 23:20: Sodium 132 L, Potassium 4.6, BUN 31 H, Creatinine 1.31 H, Glucose 589 H*, Magnesium 2.3 Assessment and Plan - Plan Assessment: Diabetic ulceration left great toe rule out osteomyelitis Diabetes mellitus type 1 with hyperglycemia Plan: Diabetic ulceration left great toe rule out osteomyelitis: N.p.o., IVF, antibiotics with vancomycin/cefepime. MRI ordered for evaluation of possible osteomyelitis. Patient sees Dr. Collier will consult him in the morning if he is unavailable need to consult on-call services. Diabetes mellitus type 1 with hyperglycemia: Patient with significant hyperglycemia he reports that at home he takes 28 units of Tresiba twice daily as well as a sliding scale. We will do an A1c to further evaluate, will likely need further adjustment of his regimen from his primary care doctor. Every 6 hours Accu-Cheks with aggressive sliding scale insulin during hospitalization for time being. DVT PPX: SCD Code status: Full Discharge Plan: Home Plan to discharge in: 48 Hours - Advance Directives Does patient have a Living Will: No Does patient have a Durable POA for Healthcare: No - Code Status/Comfort Care Code Status Assessed: Yes (Full code) Critical Care: No Time Spent Managing Pts Care (In Minutes): 55
[2022-04-18] MEDS ORDERED: ONDANSETRON 4 MG/2 ML VIAL IV PRN (04:08)
[2022-04-18] MEDS: Ringers Lactate 1,000 ML IV SCH (04:08)
[2022-04-18] MEDS ORDERED: Ringers Lactate 1,000 ML IV ONE (04:16)
[2022-04-18 05:08] VITALS: BMI 25.9
[2022-04-18] MEDS: INSULIN -REGULAR HUMAN 50 UNIT/0.5 ML ML SQ SCH ×4 (07:30→21:00)
[2022-04-18] MEDS ORDERED: CEFEPIME 1 GM in NA CHLORIDE 0.9% 100 ML IV SCH (09:00)
[2022-04-18] MEDS ORDERED: VANCOMYCIN 1.5 GM in NA CHLORIDE 0.9% 500 ML IVPB SCH (09:00)
[2022-04-18] MEDS: CEFEPIME 2 GM in NA CHLORIDE 0.9% 100 ML IV SCH ×2 (09:00→20:04)
[2022-04-18] MEDS ORDERED: VANCOMYCIN 1 GM in NA CHLORIDE 0.9% 250 ML IVPB SCH (09:00)
[2022-04-18] MEDS ORDERED: CEFEPIME 2 GM VIAL ONE (09:14)
[2022-04-18 11:45] VITALS: O2SAT 97
--- NOTE | 2022-04-18 11:49 | RAD REPORT ---
EXAM DESCRIPTION: Foot Left 3 View CLINICAL HISTORY: 31 years Male, Pain COMPARISON: None. IMPRESSION: No fracture or dislocation. Joint spaces are preserved. No joint effusion. Bone mineralization is normal. No soft tissue swelling. Electronically signed by: Jose G Rizzo DO 04/17/2022 11:18 PM CV TECH Due to temporary technical issues with the PACS/Fluency reporting system, reports are being signed by the in house radiologists without review as a courtesy to insure prompt reporting. The interpreting radiologist is fully responsible for the content of the report.
--- NOTE | 2022-04-18 15:19 | CON ---
Date of Consultation: 04/18/2022 History Of Present Illness: Mr. Bradley is a 31-year-old patient, who comes to the hospital with a d iabetic ulcer infected on the left first toe. The patient was seen by other surgeons before. He has been working with him, especially in the opposite side, this when he said in the last few days got w noel. He could not get his primary doctor or his surgeon, so he decided to come to the ER, was admit darryl, and I was called for a consult. Allergies: CLINDAMYCIN. Medications: Include insulin, hydrocodone, Bactrim, and Levaquin. Past Medical History: Diabetes, ADD, gastroparesis, anxiety. Social History: He does not smoke. Drinks alcohol just occasionally. Review of Systems: No shortness of breath. No chest pain. No fever. Ten points otherwise unremarkable. Physical Examination: General: The patient is awake, alert. HEENT: Pupils are equal and reactive. Anicteric. Neck: Supple. Chest: Clear. Heart: S1, S2. Abdomen: Soft and depressible. Extremities: Good capillary refill. Integumentary: Shows a diabetic ulcer on the left first toe area with devitalized tissue present. T here is an ulcer in the middle toe, cannot rule out osteomyelitis since it was very close to the bone . Dorsalis pedis pulses still present bilaterally. Laboratory Data: Blood work shows WBC count of 5.9. MRI still pending. Assessment: This is a 31-year-old patient with an infected diabetic ulcer in the first toe. The pat ient just had an MRI to rule out osteomyelitis. Tomorrow, we are going to do a debridement of that a josue with benefits, alternatives, and risks fully explained to the patient, which include, but not gonzalez ited to infection, bleeding, damage to adjacent structures, anesthesia complication, nonhealing wound , [place], and even . He understands the importance of diet and the importance of proper diabetic sh oes, and [facility]up [facility]. TEE/AMAURI Voice ID: [id number] Report ID: [id number]
--- NOTE | 2022-04-18 15:58 | RAD REPORT ---
EXAM DESCRIPTION: MRI - Foot Left Wo Cont - 04/18/2022 2:37 pm CLINICAL HISTORY: r/o osteo COMPARISON: Foot Left 3 View dated 04/17/2022 FINDINGS: Soft tissue wound along the plantar aspect of the great toe at the distal phalanx. No abno rmal T1 or T2 signal identified within the great toe of the left foot. No fractures identified. No fl uid collections are seen. No malalignment. IMPRESSION: No acute osseus abnormality involving the left foot. Specifically, no MR evidence of ost eomyelitis .
--- NOTE | 2022-04-18 16:04 | EKG ---
Test Date: 2022-04-17 Test Time: 22:55:04 [employer] Laborer: JACKSON MEASUREMENT RESULTS: Intervals: Rate: 92 NJ: 150 QRSD: 68 QT: 326 QTc: 403 [place]: P: 54 NJ: 150 QRS: 63 T: 27 INTERPRETIVE STATEMENTS: Normal sinus rhythm Normal ECG Compared to ECG 02/09/2022 00:08:00 No significant changes Electronically Signed On 04-18-22 16:03:23 FARM SUPERVISOR by Chavo Ellis
[2022-04-18] MEDS: VANCOMYCIN 1.25 GM in NA CHLORIDE 0.9% 250 ML IVPB SCH (20:04)
[2022-04-18] MEDS ORDERED: INSULIN GLARGINE 100 UNIT/ML SQ ONE (21:00)
--- NOTE | 2022-04-19 00:25 | P.PN ---
Subjective Date of Service: 04/19/22 Chief Complaint: Diabetic ulcer Subjective: Improving (Doing well, minimal pain. Plan for bedside debridement tomorrow General surgery.) Review of Systems 10-point ROS is otherwise unremarkable Musculoskeletal: Foot Pain Physical Examination - Vital Signs Temperature: 98.9 F Blood Pressure: 122/71 Pulse: 86 Respirations: 19 Pulse Ox (%): 96 - Physical Exam General: Alert, In no apparent distress, Oriented x3 HEENT: Atraumatic, PERRLA, EOMI Neck: Supple, JVD not distended Respiratory: Clear to auscultation bilaterally, Normal air movement Cardiovascular: Regular rate/rhythm, Normal S1 S2 Capillary refill: <2 Seconds Gastrointestinal: Normal bowel sounds, No tenderness Musculoskeletal: No tenderness Integumentary: Diabetic ulcer (Left great toe) Neurological: Normal speech, Normal tone, Normal affect - Studies Microbiology Data (last 24 hrs): 04/17/22 23:28 Wound - Left Foot Gram Stain - Final Medications List Reviewed: Yes Assessment And Plan - Plan Assessment: Diabetic ulceration left great toe rule out osteomyelitis Diabetes mellitus type 1 with hyperglycemia Plan: Diabetic ulceration left great toe rule out osteomyelitis: MRI negative for osteomyelitis, seen by general surgery today. Plan for bedside debridement tomorrow. Continue antibiotics with vancomycin/cefepime. Diabetes mellitus type 1 with hyperglycemia: Patient with significant hyper glycemia he reports that at home he takes 28 units of Tresiba twice daily as well as a sliding scale. Continue long-acting insulin, aggressive sliding scale. DVT PPX: SCD Code status: Full Critical Care: No Time Spent Managing PTS Care (In Minutes): 25
[2022-04-19 03:39] LABS: Absolute Lymphocytes (CBC) 1.8 K/uL (0.7-4.9); Hematocrit 31.4 % (39.6-49.0); MCV 82.1 fL (80-100); RBC Red Blood Cell Count 3.83 M/uL (4.33-5.43)
[2022-04-19 04:14] LABS: Albumin 2.8 g/dL (3.4-5.0); Bilirubin Total 0.4 mg/dL (0.2-1.0); Potassium 3.7 mmol/L (3.5-5.1); Protein, Total 6.2 g/dL (6.4-8.2)
[2022-04-19] MEDS: INSULIN -REGULAR HUMAN 50 UNIT/0.5 ML ML SQ SCH ×2 (07:30→11:30)
[2022-04-19] MEDS: CEFEPIME 2 GM in NA CHLORIDE 0.9% 100 ML IV SCH (08:54)
[2022-04-19] MEDS ORDERED: INSULIN GLARGINE 100 UNIT/ML SQ SCH (09:00)
[2022-04-19] MEDS: VANCOMYCIN 1.25 GM in NA CHLORIDE 0.9% 250 ML IVPB SCH (09:00)
[2022-04-19] MEDS: Ringers Lactate 1,000 ML IV SCH (09:00)
[2022-04-19] MEDS ORDERED: COLLAGENASE 30 GM OINTMENT TOP SCH (10:51)
--- NOTE | 2022-04-19 12:23 | P.PN ---
Subjective Date of Service: 04/19/22 Chief Complaint: Diabetic ulcer Physical Examination - Vital Signs Temperature: 97.2 F Blood Pressure: 127/72 Pulse: 84 Respirations: 18 Pulse Ox (%): 97 - Studies Microbiology Data (last 24 hrs): 04/17/22 23:28 Wound - Left Foot Gram Stain - Final Medications List Reviewed: Yes
--- NOTE | 2022-04-19 12:46 | OP ---
Date of Procedure: 04/19/2022 Surgeon: Dani Fry MD Preoperative Diagnosis: Necrotic diabetic ulcer, left first toe. Postoperative Diagnosis: Necrotic diabetic ulcer, left first toe. Procedure: Excisional debridement, subcu of left first toe ulcer. It is about 3 x 2 cm. Estimated Blood Loss: Minimal. Complications: None. Indication: This is the case of a 31-year-old patient, who comes to us with infected diabetic ulcer on the left first toe and started on antibiotics. The patient has devitalized tissue in that area. He was advised the importance of taking care of himself. He has been very active and has shattered t hat area little bit with friction with shoes. He needs debridement. The benefit, benefits and risks of subcutaneous debridement fully explained, which include, but not limited to infection, bleeding, damage to adjacent structures, anesthesia complication, nonhealing wound, [place], and even . He als o understands this may not relieve any symptoms. He might need while surgical intervention. He unde rstood, signed a consent. Procedure In Detail: The area was draped in the usual aseptic fashion. 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 The area was irrigated. The re was some smell to the area, but once we cleaned it and removed all this tissue covering the wound, the area improved. No bone or tendon exposed. The patient tolerated the procedure well. Plan: Continue the antibiotics. From the surgical standpoint, he may be discharged home with proper antibiotics. Also, he has been using Santyl in that area. Follow with [facility] in a week. Diabetes control is imperative. Also diabetic shoes are important to diminish the offloading. He un derstood. HM/MODL Voice ID: [id number] Report ID: [id number]
--- NOTE | 2022-04-19 13:00 | P.DS ---
Admission Date: 04/18/22 Discharge Date: 04/19/22 Disposition: ROUTINE DISCHARGE Discharge Condition: FAIR Reason for Admission: Diabetic ulcer Brief History of Present Illness: 31-year-old male with history of type 1 diabetes presented to the ED with concern for infection of his left great toe. He reported a break in skin in an area of callus on his left great toe which later developed surrounding erythema. His labs were significant for sodium 132 chloride 97 creatinine 1.31 GFR 75 glucose 589 C-reactive protein 35.0. X-ray left foot with no acute abnormalities. Patient was given vancomycin/cefepime in ED, and admitted for further management. Hospital Course: Diagnosis Diabetic ulceration left great toe rule out osteomyelitis Diabetes mellitus type 1 with hyperglycemia Patient admitted to the medical floor and treated with broad-spectrum antibiotics-cefepime and vancomycin. MRI of the foot was negative for osteomyelitis. Patient seen in consultation by general surgery Dr. Fry who performed sharp negative debridement at the bedside. His blood sugar readings were in acceptable range on Semglee 20 units twice daily. Noted an episode of hypoglycemia, blood sugar 56 this morning. Patient is on Tresiba 28 units twice a day. I discussed the episode of hypoglycemia with him. Patient stated he has been eating more at home and snacks oftentimes. He reported occasional episodes of hypoglycemia at home but resisted any changes in his home insulin regimen even after discussing high risk of with hypoglycemia. Patient deemed stable for discharge General surgery-Dr. Fry. He is prescribed Augmentin and doxycycline to continue treatment for infected wound. Vital Signs/Physical Exam: Temp Pulse Resp BP Pulse Ox 97.2 F 84 18 127/72 97 04/19/22 12:23 04/19/22 12:23 04/19/22 12:23 04/19/22 12:23 04/19/22 12:23 General: Alert, In no apparent distress, Oriented x3 HEENT: Mucous membr. moist/pink Neck: Supple, JVD not distended Respiratory: Clear to auscultation bilaterally, Normal air movement Cardiovascular: No edema, Regular rate/rhythm, Normal S1 S2 Gastrointestinal: Soft and benign, Non-distended, No tenderness Musculoskeletal: No swelling Integumentary: Skin breakdown (Medial aspect of left great toe) Neurological: Normal strength at 5/5 x4 extr Laboratory Data at Discharge: WBC 5.20 K/uL (4.3-10.9) 04/19/22 02:44 Hgb 11.4 g/dL (13.6-17.9) L 04/19/22 02:44 Hct 31.4 % (39.6-49.0) L 04/19/22 02:44 Plt Count 252 K/uL (152-406) 04/19/22 02:44 Sodium 139 mmol/L (136-145) D 04/19/22 02:44 Potassium 3.7 mmol/L (3.5-5.1) D 04/19/22 02:44 BUN 15 mg/dL (7-18) 04/19/22 02:44 Creatinine 0.89 mg/dL (0.70-1.30) 04/19/22 02:44 Glucose 129 mg/dL (74-106) H 04/19/22 02:44 Magnesium 2.3 mg/dL (1.6-2.4) 04/17/22 23:20 Total Bilirubin 0.4 mg/dL (0.2-1.0) 04/19/22 02:44 AST 11 U/L (15-37) L 04/19/22 02:44 ALT 18 U/L (16-61) 04/19/22 02:44 Alkaline Phosphatase 69 U/L (45-117) 04/19/22 02:44 Home Medications: Insulin Degludec [Tresiba] 28 units SQ BID 02/09/22 Insulin Aspart [Insulin Aspart Flexpen] See Rx Instructions .ROUTE .COMPLEX 04/18/22 Amox/Clavulanate [Augmentin 875-125 Tab] 1 each PO BID #20 tab 04/19/22 Collagenase [Santyl Ointment*] 1 appl TOP DAILY #1 tube 04/19/22 Doxycycline Hyclate 100 mg PO BID #20 cap 04/19/22 New Medications: Amox/Clavulanate [Augmentin 875-125 Tab] 1 each PO BID #20 tab Doxycycline Hyclate 100 mg PO BID #20 cap Collagenase [Santyl Ointment*] 1 appl TOP DAILY #1 tube Physician Discharge Instructions: PROBLEM: (list out Acute Problems for the Current visit) LLE Cellulitis GOAL: Clear understanding of disease process INSTRUCTIONS: S/p bedside I/D of L great toe wound Clean wound with soap and water, apply santyl ointment gauze and kerlix wrap daily and prn to wound Follow up with Dr. Fry and [facility] in 1 week Follow up with PCP in 1 to 2 weeks Diet: ADA Activity: Ad melonie Diet: ADA Activity: Ad melonie Followup: Dani Fry MD [ACTIVE - CAN ADMIT] - 1-2 Weeks NEMO SAGE [Primary Care Provider] - 1-2 Weeks Time spent managing pt's care (in minutes): 34
[2022-04-19 19:07] VITALS: BP 146/74; TEMP 96.9
== END 2022-04-19 12:58 | disposition home or self-care (01) | DRG 264 ==
LOC: ER 22:09 → ERHOLD 04-18 01:45 → 4TH 04-18 10:16
PROVIDERS: ADMIT Internal Medicine Sleep Medicine; ATTEND Internal Medicine
PROC: 0JBR0ZZ Excision of Left Foot Subcutaneous Tissue and Fascia, Open Approach (ICD-10-PCS; principal; 2022-04-19)
DX: E10.52 Type 1 diabetes mellitus with diabetic peripheral angiopathy with gangrene (principal); L03.116 Cellulitis of left lower limb; E10.65 Type 1 diabetes mellitus with hyperglycemia; E10.621 Type 1 diabetes mellitus with foot ulcer; L97.529 Non-pressure chronic ulcer of other part of left foot with unspecified severity; F17.210 Nicotine dependence, cigarettes, uncomplicated; Z88.1 Allergy status to other antibiotic agents; Z79.4 Long term (current) use of insulin; Z79.899 Other long term (current) drug therapy; Z28.310 Unvaccinated for COVID-19; Z20.822 Contact with and (suspected) exposure to COVID-19
CPT/HCPCS: 36415; 80048; 80053; 82947; 83036; 83605; 83735; 85025; 85652; 86140; 87040; 87070; 87077; 87186; 87205; 93005; 96361; 96365; 96367; 96375; 99285; J0692; J1815; J3370; J3590; J7030; J7040; J7050; J7120; U0003

== ENCOUNTER 2023-01-11 07:52 | Emergency (ER) | payer BC, OTHER ==
--- OUTSIDE RECORDS SUMMARY | 2023-01-11 08:01 | XMS REPORT | Continuity of Care Document ---
:1990 Author Organization [facility] [place] [facility] Address [address] [place] [address] [place] [id number] Care Team Providers Name Role Phone No, Pcp [facility] Primary Care Physician Unavailable CORAL OREILLY Attending Clinician Unavailable LEONID MCCLURE Attending Clinician Unavailable BETH MANUEL Attending Clinician Unavailable BETH MANUEL Attending Clinician Unavailable Leonid Mcclure MD Attending Clinician Tessy Attending Clinician Unavailable WALDO WATKINS Attending Clinician Unavailable Waldo Watkins DO Attending Clinician Maribel Castellanos RN Attending Clinician Unavailable JONI WYATT Attending Clinician Unavailable Joni Phillips Attending Clinician Unknown, Attending Attending Clinician Unavailable Doctor Unassigned, Maurice Attending Clinician Unavailable Tabitha Rose MD Attending Clinician TABITHA ROSE Attending Clinician Unavailable Nurse, [facility] Attending Clinician Unavailable Tameka Cerda Attending Clinician TAMEKA NEWELL Attending Clinician Unavailable OLIVIA MUHAMMAD Attending Clinician Unavailable Gabbi GARZA, Ziggy Attending Clinician Olivia Muhammad DO Attending Clinician ANGELA JACKMAN Attending Clinician Unavailable Britton GARZA, Coral Adorno Attending Clinician [phone] Ted Yanez DO Attending Clinician Angela Burt Attending Clinician Shirley Dockery RN, Marialuisa Attending Clinician Unavailable Olivia Owens RN Attending Clinician Unavailable SUSHMA DAWSON Attending Clinician Unavailable Steven MERCADO, Nicola Stout Attending Clinician CAITLIN SHARMA Attending Clinician Unavailable Caitlin Sharma MD Attending Clinician NICOLA HARRIS Attending Clinician Unavailable Pob, [facility] Attending Clinician Unavailable Meggan Ray MD Attending Clinician KYLAH MARTINEZ Attending Clinician Unavailable Porsha Almonte Attending Clinician KENDALL BOWEN Attending Clinician Unavailable ISA CARR Attending Clinician Unavailable ISA CARR Attending Clinician Unavailable CORAL OREILLY Admitting Clinician Unavailable Tessy Admitting Clinician Unavailable WALDO WATKINS Admitting Clinician Unavailable Coral Oreilly MD Admitting Clinician [phone] KYLAH MARTINEZ Admitting Clinician Unavailable WESTON LOGAN Admitting Clinician Unavailable KARLEE FOX Admitting Clinician Unavailable Payers Payer Name Policy Type Policy Number Effective Date Expiration Date Argelia FREITAS (EPO) [id number] 2022 00:00:00 2022 00:0 0:00 Problems Condition Condition Condition Status Onset Resolution Last Treating Co mments Source Name Details Category Date Date Treatment Clinician Date Type 1 Type 1 Problem Active [facility] diabetes Diabetes 8-17 Family mellitus Mellitus 00:00: Practi c 00 e Penile Penile Problem Active [place] warts Warts 10-21 Family 00:00: Practic 00 e Hypoglycem Hypoglycem Problem Active [facility] ia ia 30 Family 00:00: Practic 00 e Body mass Body Mass Problem Active [facility] index Index -30 Family 25-29 - 25-29 - 00:00: Practic overweight Overweight 00 e Orgasm Orgasm Problem Active [place] without without 08-28 Family ejaculatio Ejaculatio 00:00: Pr actic n n 00 e Cognitive Cognitive Problem Active [facility] deficit in Deficit in 08-28 Fa radha attention Attention 00:00: Prac tic 00 e Type 1 Type 1 Problem Active [facility] diabetes Diabetes 3-26 Family mellitus Mellitus 00:00: Practi c uncontroll Uncontroll 00 e ed ed Restless 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[facility] legs Legs - Family 00:00: Practic 00 e Ulcer of Ulcer of Problem Active [facility] toe Toe 07-17 Family 00:00: Practic 00 e Family Family Problem Active [facility] history of History of 3-26 Fa radha diabetes Diabetes 00:00: Practi c mellitus Mellitus 00 e Family Family Problem Active [facility] history of History of 3-26 [facility] cardiac Cardiac 00:00: Practic disorder Disorder 00 e Diabetic Diabetic Disease [facility]ur[facility] Rhianna kes is without is without 00:00: Me dical coma coma 00 Center GI bleed GI bleed [facility] [place] Acidosis Acidosis Disease [facility] [place] ACCIDENT ACCIDENT Diagnosis Active 2017-03-28 Memoria Active 11-22 13:59:00 l 11/22/2016 13:00: Ministerio forbes [facility] 00 Kvng Attention Attention Disease Active 2006-04 Overview: Univers deficit deficit 0-22 Formattin ity o f hyperactiv hyperactiv 00:00: g of this [place] ity ity 00 note Medical disorder disorder might be Bran ch (ADHD) (ADHD) different from the original. 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 Dx age 4ICD10 Diagnosis Term Nanny/Household Manager Utility Diabetes Diabetes Problem Resolve 2016-11-26 Memoria mellitus mellitus d 05:37:49 l (disorder) (disorder) He rmann Resolved Problem 11/26/2016 Anatoly Trichomoni Trichomoni Disease Active U nivers asis asis ity of [facility] History of Past Illness Condition Condition Condition Status Onset Resolution Last Treating Co mments Source Name Details Category Date Date Treatment Clinician Date Strain of Strain of Problem 2016-11-26 2016-11-26 Memoria muscle, muscle, 8- 05:37:49 05:37:49 l fascia and fascia and 05:00: He rmann tendon at tendon at 00 neck neck level, level, initial initial encounter encounter 11/23/2016 11/26/2016 Anatoly Allergies, Adverse Reactions, Alerts Allergy Allergy Status Severity Reaction(s) Onset Inactive Treating Comm ents Source Name Type Date Date Clinician NO KNOWN Drug Active Univers ALLERGIE Class ity of S [facility] Social History Social Habit Start Date Stop Date Quantity Comments Source History [facility] University o f Alcohol Comment [place] [facility] Gender identity [facility]it y of [facility] Sexual orientation Univer sity of [facility] Branch History of tobacco Snuff User Univ sity of use [facility] Branch Alcohol intake 2022-10-17 2022-10-17 Current drinker Unive rsity of 00:00:00 00:00:00 of alcohol [place] [facility] (finding) Branch Exposure to 2022-06-27 2022-07-07 Yes University of SARS-CoV-2 (event) 00:00:00 11:53:00 [place] [facility] History SDOH 2020-02-03 2020-02-03 2 University o f Alcohol Frequency 00:00:00 00:00:00 [place] M edical [facility] History SDOH 2020-02-03 2020-02-03 99 University o f Alcohol Std Drinks 00:00:00 00:00:00 [place] [facility] History SDOH 2020-02-03 2020-02-03 99 University o f Alcohol Binge 00:00:00 00:00:00 [place] [facility] Tobacco use and 2020-02-03 2020-02-03 User of Universit y of exposure 00:00:00 00:00:00 smokeless [facility] tobacco [place] History of Social 2019-11-24 2019-11-24 Univers ity of function 00:00:00 00:00:00 [facility] Tobacco Comment 2008-08-06 2008-08-06 on and off Universit y of 00:00:00 00:00:00 [facility] Sex Ass[birth year] At [birth year] HUNG [place] 00:00:00 00:00:00 [facility] Smoking Status Start Date Stop Date Source Social History [facility] Medications Ordered Filled Start Stop Current Ordering Indication Dosage Frequency Signature Comments Components Source Medication Medication Date Date Medication? Clinician (SIG) Name Name insulin 2022- No 7U 7 Units, Unive rs regular 07-07-16 Subcutaneo ity o f human 22:45: 22:11 , ONCE, [place] (HUMULIN R) 00 :00 1 dose, On Me dical injection 7 Roberta Branch Units 07/07/22 at 1745, Routine
Indicatio n for insulin: Hyperglyce gali NaCl 0.9% 2022- No 30mL/kg at 999 Un kiran (NS) bolus 07-07-16 mL/hr, ity of infusion 18:15: 21:43 2,613 [place] 2,613 [place] 00 :00 (30 mL/kg Medica l ?87.1 kg), Branch IV Piggyback, ONCE, 1 dose, On Roberta 07/07/22 at 1315, STAT ondansetron Yes [id number] 4mg Take 1 Univers 4 mg 3-16 tablet by ity of disintegrat 00:00: mouth [place] ing tablet 00 every 8 Medica l (eight) Branch hours as needed for Nausea and Vomiting (N/V). ondansetron 2022-0 Yes [id number] 4mg Take 1 Univers 4 mg 3-16 tablet by ity of disintegrat 00:00: mouth [place] ing tablet 00 every 8 Medica l (eight) Branch hours as needed for Nausea and Vomiting (N/V). ondansetron 2022-0 Yes [id number] 4mg Take 1 Univers 4 mg 3-16 tablet by ity of disintegrat 00:00: mouth [place] ing tablet 00 every 8 Medica l (eight) Branch hours as needed for Nausea and Vomiting (N/V). ondansetron 2023-0 Yes [id number] 4mg Take 1 Univers 4 mg 3-16 tablet by ity of disintegrat 00:00: mouth [place] ing tablet 00 every 8 Medica l (eight) Branch hours as needed for Nausea and Vomiting (N/V). ondansetron 2023-0 Yes [id number] 4mg Take 1 Univers 4 mg 3-16 tablet by ity of disintegrat 00:00: mouth [place] ing tablet 00 every 8 Medica l (eight) Branch hours as needed for Nausea and Vomiting (N/V). ondansetron 2023-0 Yes [id number] 4mg Take 1 Univers 4 mg 3-16 tablet by ity of disintegrat 00:00: mouth [place] ing tablet 00 every 8 Medica l (eight) Branch hours as needed for Nausea and Vomiting (N/V). ondansetron 2023-0 Yes [id number] 4mg Take 1 Univers 4 mg 3-16 tablet by ity of disintegrat 00:00: mouth [place] ing tablet 00 every 8 Medica l (eight) Branch hours as needed for Nausea and Vomiting (N/V). ondansetron 2023-0 Yes [id number] 4mg Take 1 Univers 4 mg 3-16 tablet by ity of disintegrat 00:00: mouth [place] ing tablet 00 every 8 Medica l (eight) Branch hours as needed for Nausea and Vomiting (N/V). ondansetron 2023-0 Yes [id number] 4mg Take 1 Univers 4 mg 3-16 tablet by ity of disintegrat 00:00: mouth [place] ing tablet 00 every 8 Medica l (eight) Branch hours as needed for Nausea and Vomiting (N/V). ondansetron 2023-0 Yes [id number] 4mg Take 1 Univers 4 mg 3-16 tablet by ity of disintegrat 00:00: mouth [place] ing tablet 00 every 8 Medica l (eight) Branch hours as needed for Nausea and Vomiting (N/V). ondansetron 2023-0 Yes [id number] 4mg Take 1 Univers 4 mg 3-16 tablet by ity of disintegrat 00:00: mouth [place] ing tablet 00 every 8 Medica l (eight) Branch hours as needed for Nausea and Vomiting (N/V). amoxicillin 2023-0 2023- No [id number] 1000mg Take 2 Univers 500 mg 3-11 24-19 tablets by ity of tablet 00:00: 04:59 mouth in [place] 00 :00 the Medical morning Branch for 10 days. amoxicillin 2023-0 2023- No [id number] 1000mg Take 2 Univers 500 mg 3-11 24-19 tablets by ity of tablet 00:00: 04:59 mouth in [place] 00 :00 the Medical morning Branch for 10 days. amoxicillin 2023-0 2023- No [id number] 1000mg Take 2 Univers 500 mg 3-11 24-19 tablets by ity of tablet 00:00: 04:59 mouth in [place] 00 :00 the Medical morning Branch for 10 days. benzonatate 2022-0 Yes [id number] 100mg Take 1 Univers 100 mg 3-25 capsule by ity of capsule 00:00: mouth 3 [place] 00 (three) Medical times Branch daily as needed for Cough. ondansetron 2-0 Yes [id number] 4mg Take 1 Univers 4 mg 3-25 tablet by ity of disintegrat 00:00: mouth [place] ing tablet 00 every 8 Medica l (eight) Branch hours as needed for Nausea and Vomiting (N/V). chlorphenir 2022-0 Yes [id number] 4mg Take 1 Univers amine 4 mg 3-25 tablet by ity of tablet 00:00: mouth [place] 00 every 6 Medical (six) Branch hours as needed for Allergies or Runny nose. benzonatate 2022-0 Yes [id number] 100mg Take 1 Univers 100 mg 3-25 capsule by ity of capsule 00:00: mouth 3 [place] 00 (three) Medical times Branch daily as needed for Cough. ondansetron 2022-0 Yes [id number] 4mg Take 1 Univers 4 mg 3-25 tablet by ity of disintegrat 00:00: mouth [place] ing tablet 00 every 8 Medica l (eight) Branch hours as needed for Nausea and Vomiting (N/V). chlorphenir 2022-0 Yes [id number] 4mg Take 1 Univers amine 4 mg 3-25 tablet by ity of tablet 00:00: mouth [place] 00 every 6 Medical (six) Branch hours as needed for Allergies or Runny nose. benzonatate 2022-0 Yes [id number] 100mg Take 1 Univers 100 mg 3-25 capsule by ity of capsule 00:00: mouth 3 [place] 00 (three) Medical times Branch daily as needed for Cough. ondansetron 2-0 Yes [id number] 4mg Take 1 Univers 4 mg 3-25 tablet by ity of disintegrat 00:00: mouth [place] ing tablet 00 every 8 Medica l (eight) Branch hours as needed for Nausea and Vomiting (N/V). chlorphenir 2-0 Yes [id number] 4mg Take 1 Univers amine 4 mg 3-25 tablet by ity of tablet 00:00: mouth [place] 00 every 6 Medical (six) Branch hours as needed for Allergies or Runny nose. benzonatate 2022-0 Yes [id number] 100mg Take 1 Univers 100 mg 3-25 capsule by ity of capsule 00:00: mouth 3 [place] 00 (three) Medical times Branch daily as needed for Cough. ondansetron 2-0 Yes [id number] 4mg Take 1 Univers 4 mg 3-25 tablet by ity of disintegrat 00:00: mouth [place] ing tablet 00 every 8 Medica l (eight) Branch hours as needed for Nausea and Vomiting (N/V). chlorphenir 2-0 Yes [id number] 4mg Take 1 Univers amine 4 mg 3-25 tablet by ity of tablet 00:00: mouth [place] 00 every 6 Medical (six) Branch hours as needed for Allergies or Runny nose. benzonatate 2-0 Yes [id number] 100mg Take 1 Univers 100 mg 3-25 capsule by ity of capsule 00:00: mouth 3 [place] 00 (three) Medical times Branch daily as needed for Cough. ondansetron 2-0 Yes [id number] 4mg Take 1 Univers 4 mg 3-25 tablet by ity of disintegrat 00:00: mouth [place] ing tablet 00 every 8 Medica l (eight) Branch hours as needed for Nausea and Vomiting (N/V). chlorphenir 2022-0 Yes [id number] 4mg Take 1 Univers amine 4 mg 3-25 tablet by ity of tablet 00:00: mouth [place] 00 every 6 Medical (six) Branch hours as needed for Allergies or Runny nose. benzonatate 2022-0 Yes [id number] 100mg Take 1 Univers 100 mg 3-25 capsule by ity of capsule 00:00: mouth 3 [place] 00 (three) Medical times Branch daily as needed for Cough. ondansetron 2022-0 Yes [id number] 4mg Take 1 Univers 4 mg 3-25 tablet by ity of disintegrat 00:00: mouth [place] ing tablet 00 every 8 Medica l (eight) Branch hours as needed for Nausea and Vomiting (N/V). chlorphenir 2022-0 Yes [id number] 4mg Take 1 Univers amine 4 mg 3-25 tablet by ity of tablet 00:00: mouth [place] 00 every 6 Medical (six) Branch hours as needed for Allergies or Runny nose. benzonatate 2022-0 Yes [id number] 100mg Take 1 Univers 100 mg 3-25 capsule by ity of capsule 00:00: mouth 3 [place] 00 (three) Medical times Branch daily as needed for Cough. ondansetron 2-0 Yes [id number] 4mg Take 1 Univers 4 mg 3-25 tablet by ity of disintegrat 00:00: mouth [place] ing tablet 00 every 8 Medica l (eight) Branch hours as needed for Nausea and Vomiting (N/V). chlorphenir 2022-0 Yes [id number] 4mg Take 1 Univers amine 4 mg 3-25 tablet by ity of tablet 00:00: mouth [place] 00 every 6 Medical (six) Branch hours as needed for Allergies or Runny nose. benzonatate 2022-0 Yes [id number] 100mg Take 1 Univers 100 mg 3-25 capsule by ity of capsule 00:00: mouth 3 [place] 00 (three) Medical times Branch daily as needed for Cough. ondansetron 2-0 Yes [id number] 4mg Take 1 Univers 4 mg 3-25 tablet by ity of disintegrat 00:00: mouth [place] ing tablet 00 every 8 Medica l (eight) Branch hours as needed for Nausea and Vomiting (N/V). chlorphenir 2022-0 Yes [id number] 4mg Take 1 Univers amine 4 mg 3-25 tablet by ity of tablet 00:00: mouth [place] 00 every 6 Medical (six) Branch hours as needed for Allergies or Runny nose. benzonatate 2022-0 Yes [id number] 100mg Take 1 Univers 100 mg 3-25 capsule by ity of capsule 00:00: mouth 3 [place] 00 (three) Medical times Branch daily as needed for Cough. ondansetron 2022-0 Yes [id number] 4mg Take 1 Univers 4 mg 3-25 tablet by ity of disintegrat 00:00: mouth [place] ing tablet 00 every 8 Medica l (eight) Branch hours as needed for Nausea and Vomiting (N/V). chlorphenir 2022-0 Yes [id number] 4mg Take 1 Univers amine 4 mg 3-25 tablet by ity of tablet 00:00: mouth [place] 00 every 6 Medical (six) Branch hours as needed for Allergies or Runny nose. benzonatate 2022-0 Yes [id number] 100mg Take 1 Univers 100 mg 3-25 capsule by ity of capsule 00:00: mouth 3 [place] 00 (three) Medical times Branch daily as needed for Cough. ondansetron 2-0 Yes [id number] 4mg Take 1 Univers 4 mg 3-25 tablet by ity of disintegrat 00:00: mouth [place] ing tablet 00 every 8 Medica l (eight) Branch hours as needed for Nausea and Vomiting (N/V). chlorphenir 2022-0 Yes [id number] 4mg Take 1 Univers amine 4 mg 3-25 tablet by ity of tablet 00:00: mouth [place] 00 every 6 Medical (six) Branch hours as needed for Allergies or Runny nose. benzonatate 2-0 Yes [id number] 100mg Take 1 Univers 100 mg 3-25 capsule by ity of capsule 00:00: mouth 3 [place] 00 (three) Medical times Branch daily as needed for Cough. ondansetron 2-0 Yes [id number] 4mg Take 1 Univers 4 mg 3-25 tablet by ity of disintegrat 00:00: mouth [place] ing tablet 00 every 8 Medica l (eight) Branch hours as needed for Nausea and Vomiting (N/V). chlorphenir 2022-0 Yes [id number] 4mg Take 1 Univers amine 4 mg 3-25 tablet by ity of tablet 00:00: mouth [place] 00 every 6 Medical (six) Branch hours as needed for Allergies or Runny nose. benzonatate 2022-0 Yes [id number] 100mg Take 1 Univers 100 mg 3-25 capsule by ity of capsule 00:00: mouth 3 [place] 00 (three) Medical times Branch daily as needed for Cough. ondansetron 2022-0 Yes [id number] 4mg Take 1 Univers 4 mg 3-25 tablet by ity of disintegrat 00:00: mouth [place] ing tablet 00 every 8 Medica l (eight) Branch hours as needed for Nausea and Vomiting (N/V). chlorphenir 2022-0 Yes [id number] 4mg Take 1 Univers amine 4 mg 3-25 tablet by ity of tablet 00:00: mouth [place] 00 every 6 Medical (six) Branch hours as needed for Allergies or Runny nose. benzonatate 2-0 Yes [id number] 100mg Take 1 Univers 100 mg 3-25 capsule by ity of capsule 00:00: mouth 3 [place] 00 (three) Medical times Branch daily as needed for Cough. ondansetron 2021-0 Yes [id number] 4mg Take 1 Univers 4 mg 3-25 tablet by ity of disintegrat 00:00: mouth [place] ing tablet 00 every 8 Medica l (eight) Branch hours as needed for Nausea and Vomiting (N/V). chlorphenir 2-0 Yes [id number] 4mg Take 1 Univers amine 4 mg 3-25 tablet by ity of tablet 00:00: mouth [place] 00 every 6 Medical (six) Branch hours as needed for Allergies or Runny nose. benzonatate 2-0 Yes [id number] 100mg Take 1 Univers 100 mg 3-25 capsule by ity of capsule 00:00: mouth 3 [place] 00 (three) Medical times Branch daily as needed for Cough. ondansetron 2-0 Yes [id number] 4mg Take 1 Univers 4 mg 3-25 tablet by ity of disintegrat 00:00: mouth [place] ing tablet 00 every 8 Medica l (eight) Branch hours as needed for Nausea and Vomiting (N/V). chlorphenir 2022-0 Yes [id number] 4mg Take 1 Univers amine 4 mg 3-25 tablet by ity of tablet 00:00: mouth [place] 00 every 6 Medical (six) Branch hours as needed for Allergies or Runny nose. benzonatate 2022-0 Yes [id number] 100mg Take 1 Univers 100 mg 3-25 capsule by ity of capsule 00:00: mouth 3 [place] 00 (three) Medical times Branch daily as needed for Cough. ondansetron 2-0 Yes [id number] 4mg Take 1 Univers 4 mg 3-25 tablet by ity of disintegrat 00:00: mouth [place] ing tablet 00 every 8 Medica l (eight) Branch hours as needed for Nausea and Vomiting (N/V). chlorphenir 2021-0 Yes [id number] 4mg Take 1 Univers amine 4 mg 3-25 tablet by ity of tablet 00:00: mouth [place] 00 every 6 Medical (six) Branch hours as needed for Allergies or Runny nose. benzonatate 2021-0 Yes [id number] 100mg Take 1 Univers 100 mg 3-25 capsule by ity of capsule 00:00: mouth 3 [place] 00 (three) Medical times Branch daily as needed for Cough. ondansetron 2021-0 Yes [id number] 4mg Take 1 Univers 4 mg 3-25 tablet by ity of disintegrat 00:00: mouth [place] ing tablet 00 every 8 Medica l (eight) Branch hours as needed for Nausea and Vomiting (N/V). chlorphenir 2021-0 Yes [id number] 4mg Take 1 Univers amine 4 mg 3-25 tablet by ity of tablet 00:00: mouth [place] 00 every 6 Medical (six) Branch hours as needed for Allergies or Runny nose. benzonatate 2021-0 Yes [id number] 100mg Take 1 Univers 100 mg 3-25 capsule by ity of capsule 00:00: mouth 3 [place] 00 (three) Medical times Branch daily as needed for Cough. ondansetron 2021-0 Yes [id number] 4mg Take 1 Univers 4 mg 3-25 tablet by ity of disintegrat 00:00: mouth [place] ing tablet 00 every 8 Medica l (eight) Branch hours as needed for Nausea and Vomiting (N/V). chlorphenir 2021-0 Yes [id number] 4mg Take 1 Univers amine 4 mg 3-25 tablet by ity of tablet 00:00: mouth [place] 00 every 6 Medical (six) Branch hours as needed for Allergies or Runny nose. proMETHazin 2021-0 2021- No 25mg 25 mg, IV Univers e 3-15 03-15 Piggyback, ity of (PHENERGAN) 07:30: 09:27 at 200 [place] 25 mg in NS 00 :00 mL/hr Medical 50 mL IV Administer Branc h piggyback over 15 (CNR) Minutes, ONCE, 1 dose, On Mon07/06/21 at 0230, [place] NaCl 0.9% 0 2021- No 1000mL at 999 Uni vers (NS) bolus 3-15 03-15 mL/hr, ity of infusion 07:30: 09:27 1,000 mL, [place] 1,000 mL 00 :00 IV Medical Infusion, Branch ONCE, 1 dose, On Mon07/06/21 at 0230, STAT proMETHazin 2021-0 Yes [id number] 25mg Take 1 Univers e 25 mg 3-15 tablet by ity of tablet 00:00: mouth [place] 00 every 6 Medical (six) Branch hours as needed for Nausea and Vomiting (N/V). proMETHazin 2021-0 Yes [id number] 25mg Take 1 Univers e 25 mg 3-15 tablet by ity of tablet 00:00: mouth [place] 00 every 6 Medical (six) Branch hours as needed for Nausea and Vomiting (N/V). proMETHazin 2021-0 Yes [id number] 25mg Take 1 Univers e 25 mg 3-15 tablet by ity of tablet 00:00: mouth [place] 00 every 6 Medical (six) Branch hours as needed for Nausea and Vomiting (N/V). proMETHazin 2021-0 Yes [id number] 25mg Take 1 Univers e 25 mg 3-15 tablet by ity of tablet 00:00: mouth [place] 00 every 6 Medical (six) Branch hours as needed for Nausea and Vomiting (N/V). proMETHazin 2021-0 Yes [id number] 25mg Take 1 Univers e 25 mg 3-15 tablet by ity of tablet 00:00: mouth [place] 00 every 6 Medical (six) Branch hours as needed for Nausea and Vomiting (N/V). proMETHazin 2021-0 Yes [id number] 25mg Take 1 Univers e 25 mg 3-15 tablet by ity of tablet 00:00: mouth [place] 00 every 6 Medical (six) Branch hours as needed for Nausea and Vomiting (N/V). proMETHazin 2021-0 Yes [id number] 25mg Take 1 Univers e 25 mg 3-15 tablet by ity of tablet 00:00: mouth [place] 00 every 6 Medical (six) Branch hours as needed for Nausea and Vomiting (N/V). proMETHazin 2021-0 Yes [id number] 25mg Take 1 Univers e 25 mg 3-15 tablet by ity of tablet 00:00: mouth [place] 00 every 6 Medical (six) Branch hours as needed for Nausea and Vomiting (N/V). proMETHazin 2-0 Yes [id number] 25mg Take 1 Univers e 25 mg 3-15 tablet by ity of tablet 00:00: mouth [place] 00 every 6 Medical (six) Branch hours as needed for Nausea and Vomiting (N/V). proMETHazin 2021-0 Yes [id number] 25mg Take 1 Univers e 25 mg 3-15 tablet by ity of tablet 00:00: mouth [place] 00 every 6 Medical (six) Branch hours as needed for Nausea and Vomiting (N/V). proMETHazin 2021-0 Yes [id number] 25mg Take 1 Univers e 25 mg 3-15 tablet by ity of tablet 00:00: mouth [place] 00 every 6 Medical (six) Branch hours as needed for Nausea and Vomiting (N/V). proMETHazin 2021-0 Yes [id number] 25mg Take 1 Univers e 25 mg 3-15 tablet by ity of tablet 00:00: mouth [place] 00 every 6 Medical (six) Branch hours as needed for Nausea and Vomiting (N/V). proMETHazin 2021-0 Yes [id number] 25mg Take 1 Univers e 25 mg 3-15 tablet by ity of tablet 00:00: mouth [place] 00 every 6 Medical (six) Branch hours as needed for Nausea and Vomiting (N/V). proMETHazin 2021-0 Yes [id number] 25mg Take 1 Univers e 25 mg 3-15 tablet by ity of tablet 00:00: mouth [place] 00 every 6 Medical (six) Branch hours as needed for Nausea and Vomiting (N/V). proMETHazin 2-0 Yes [id number] 25mg Take 1 Univers e 25 mg 3-15 tablet by ity of tablet 00:00: mouth [place] 00 every 6 Medical (six) Branch hours as needed for Nausea and Vomiting (N/V). proMETHazin 2-0 Yes [id number] 25mg Take 1 Univers e 25 mg 3-15 tablet by ity of tablet 00:00: mouth [place] 00 every 6 Medical (six) Branch hours as needed for Nausea and Vomiting (N/V). proMETHazin 2022-0 Yes [id number] 25mg Take 1 Univers e 25 mg 3-15 tablet by ity of tablet 00:00: mouth [place] 00 every 6 Medical (six) Branch hours as needed for Nausea and Vomiting (N/V). proMETHazin Yes [id number] 25mg Take 1 Univers e 25 mg 3-15 tablet by ity of tablet 00:00: mouth [place] 00 every 6 Medical (six) Branch hours as needed for Nausea and Vomiting (N/V). proMETHazin Yes [id number] 25mg Take 1 Univers e 25 mg 3-15 tablet by ity of tablet 00:00: mouth [place] 00 every 6 Medical (six) Branch hours as needed for Nausea and Vomiting (N/V). insulin 2019- Yes inject Univers aspart 0-12 under the ity of (NOVOLOG 15:02: [place] FLEXPEN 09 sliding Medical U-100 scale and Branch INSULIN SC) carb intake insulin 2019- Yes inject Univers aspart 0-12 under the ity of (NOVOLOG 15:02: [place]. [place] FLEXPEN 09 sliding Medical U-100 scale and Branch INSULIN SC) carb intake insulin 2019- Yes inject Univers aspart 0-12 under the ity of (NOVOLOG 15:02: [place] FLEXPEN 09 sliding Medical U-100 scale and Branch INSULIN SC) carb intake insulin 2019- Yes inject Univers aspart 0-12 under the ity of (NOVOLOG 15:02: [place]. [place] FLEXPEN 09 sliding Medical U-100 scale and Branch INSULIN SC) carb intake insulin 2019- Yes inject Univers aspart 0-12 under the [...] the ity of (NOVOLOG 15:02: skin. Per [place] FLEXPEN 09 sliding Medical U-100 scale and Branch INSULIN SC) carb intake insulin 2020-1 Yes inject Univers aspart 0-12 under the ity of (NOVOLOG 15:02: skin. Per [place] FLEXPEN 09 sliding Medical U-100 scale and Branch INSULIN SC) carb intake insulin 2020-1 Yes inject Univers aspart 0-12 under the ity of (NOVOLOG 15:02: skin. Per [place] FLEXPEN 09 sliding Medical U-100 scale and Branch INSULIN SC) carb intake insulin 2020-1 Yes inject Univers aspart 0-12 under the ity of (NOVOLOG 15:02: skin. Per [place] FLEXPEN 09 sliding Medical U-100 scale and Branch INSULIN SC) carb intake insulin 2020-1 Yes inject Univers aspart 0-12 under the ity of (NOVOLOG 15:02: skin. Per [place] FLEXPEN 09 sliding Medical U-100 scale and Branch INSULIN SC) carb intake insulin 2020-1 Yes inject Univers aspart 0-12 under the ity of (NOVOLOG 15:02: skin. Per [place] FLEXPEN 09 sliding Medical U-100 scale and Branch INSULIN SC) carb intake insulin 2020-1 Yes inject Univers aspart 0-12 under the ity of (NOVOLOG 15:02: skin. Per [place] FLEXPEN 09 sliding Medical U-100 scale [...] MOUTH THREE Medical TIMES Branch DAILY cephALEXin 2019-1 Yes TAKE 1 Unive rs 500 mg [...] CAPSULE BY ity of capsule 00:00: MOUTH [facility] Medical TIMES Branch DAILY cephALEXin 2018-04 Yes TAKE 1 Unive rs 500 mg 0-03 CAPSULE BY ity of capsule 00:00: MOUTH [facility] Medical TIMES Branch DAILY cephALEXin 2018-04 Yes TAKE 1 Unive rs 500 mg 0-03 CAPSULE BY ity of capsule 00:00: MOUTH [facility] Medical TIMES Branch DAILY cephALEXin 2018-04 Yes TAKE 1 Unive rs 500 mg 0-03 CAPSULE BY ity of capsule 00:00: MOUTH [facility] Medical TIMES Branch DAILY cephALEXin 2018-04 Yes TAKE 1 Unive rs 500 mg 0-03 CAPSULE BY ity of capsule 00:00: MOUTH [facility] Medical TIMES Branch DAILY cephALEXin 2018-04 Yes TAKE 1 Unive rs 500 mg 0-03 CAPSULE BY ity of capsule 00:00: MOUTH [facility] Medical TIMES Branch DAILY cephALEXin 2018-04 Yes TAKE 1 Unive rs 500 mg 0-03 CAPSULE BY ity of capsule 00:00: MOUTH [facility] Medical TIMES Branch DAILY cephALEXin 2018-04 Yes TAKE 1 Unive rs 500 mg 0-03 CAPSULE BY ity of capsule 00:00: MOUTH [facility] Medical TIMES Branch DAILY cephALEXin 2018-04 Yes TAKE 1 Unive rs 500 mg 0-03 CAPSULE BY ity of capsule 00:00: MOUTH THREE Medical TIMES Branch DAILY Insulin 2018- Yes 30U inject Univers Glargine 01-08-35 ity of (LANTUS 00:00: Units SOLOSTAR 00 under the Medica l U-100 skin 2 Branch INSULIN) (two) 100 unit/mL times (3 mL) daily. injection Insulin 2018- Yes 30U inject Univers Glargine 01-08 30-35 ity of (LANTUS 00:00: Units SOLOSTAR 00 under the Medica l U-100 skin 2 Branch INSULIN) (two) 100 unit/mL times (3 mL) daily. injection Insulin 0 Yes 30U inject Univers Glargine 9- 30-35 ity of (LANTUS 00:00: Units [place] SOLOSTAR 00 under the Medica l U-100 skin 2 Branch INSULIN) (two) 100 unit/mL times (3 mL) daily. injection Insulin 0 Yes 30U inject Univers Glargine 9- 30-35 ity of (LANTUS 00:00: Units [place] SOLOSTAR 00 under the Medica l U-100 skin 2 Branch INSULIN) (two) 100 unit/mL times (3 mL) daily. injection Insulin 0 Yes 30U inject Univers Glargine 9- 30-35 ity of (LANTUS 00:00: Units [place] [...] Insulin 0 Yes 30U inject Univers Glargine 9- 30-35 ity of (LANTUS 00:00: Units [place] SOLOSTAR 00 under the Medica l U-100 skin 2 Branch INSULIN) (two) 100 unit/mL times (3 mL) daily. injection Insulin 0 Yes 30U inject Univers Glargine 9- 30-35 ity of (LANTUS 00:00: Units [place] [...] SKIN ity o f 00:00: TWICE A Branch clindamycin 2019- Yes TAKE 1 Univ ers 300 mg 9-13 CAPSULE BY ity of capsule 00:00: MOUTH Medical TIMES Branch DAILY mupirocin 2 Yes APPLY ON Un kiran % ointment 9-13 THE SKIN ity o f 00:00: TWICE A Medical Branch clindamycin 2019 Yes TAKE 1 Univ ers 300 mg 9-13 CAPSULE BY ity of capsule 00:00: MOUTH TIMES Branch DAILY mupirocin 2 Yes APPLY ON Un kiran % ointment 9-13 THE SKIN ity o f 00:00: TWICE A Medical Branch clindamycin 2019 Yes TAKE 1 Univ ers 300 mg [...] SKIN ity o f 00:00: TWICE A Branch clindamycin 2019-0 Yes TAKE 1 Univ ers 300 mg 9-13 CAPSULE BY ity of capsule 00:00: MOUTH Medical TIMES Branch DAILY mupirocin 2 2019-0 [...] BY ity of capsule 00:00: MOUTH TIMES Branch DAILY mupirocin 2 2019-0 Yes APPLY ON Un kiran % ointment 9-13 THE SKIN ity o f 00:00: TWICE A Medical Branch clindamycin 2019-0 Yes TAKE 1 Univ ers 300 mg 9-13 CAPSULE BY ity of capsule 00:00: MOUTH Medical TIMES Branch DAILY mupirocin 2 2019-0 Yes APPLY ON Un kiran % ointment 9-13 THE SKIN ity o f 00:00: TWICE A Medical Branch clindamycin 2019-0 Yes TAKE 1 Univ ers 300 mg 9-13 CAPSULE BY ity of capsule 00:00: MOUTH Medical TIMES Branch DAILY mupirocin 2 2019-0 Yes APPLY ON Un kiran % ointment 9-13 THE SKIN ity o f 00:00: TWICE A Medical Branch clindamycin 2019-0 Yes TAKE 1 Univ ers 300 mg 9-13 CAPSULE BY ity of capsule 00:00: MOUTH Medical TIMES Branch DAILY mupirocin 2 2019-0 [...] o f 00:00: TWICE A Medical Branch insulin Yes 30U Q.5D Inject [facility] 6-27 30-[facility] ([facility]) 12:16: Units Medical 100 unit/mL 59 subcutaneo Ce nter injection usly 2 (two) times daily Use as directed . insulin Yes 30U Q.5D Inject [facility] 6-27 30-35 [facility] ([facility]) 12:16: Units Medical 100 unit/mL 59 subcutaneo Ce nter injection usly 2 (two) times daily Use as directed . insulin 2019-0 Yes 30U Q.5D Inject [facility]ine 6-27 30-35 [facility] (L[facility]) 12:16: Units Medical 100 unit/mL 59 subcutaneo Ce nter injection usly 2 (two) times daily Use as directed . insulin 2019-0 Yes 30U Q.5D Inject [facility]argine 6-27 30-35 [facility] (L[facility]) 12:16: Units Medical 100 unit/mL 59 subcutaneo Ce nter injection usly 2 (two) times daily Use as directed . insulin 2019-0 Yes 30U Q.5D Inject [facility]ine 6-27 30-35 [facility] (LANTUS) 12:16: Units Medical 100 unit/mL 59 subcutaneo Ce nter injection usly 2 (two) times daily Use as directed . Motrin 800 2017-0 Yes 800 mg = 1 M emoria mg oral 8-03 tab, PO, l tablet 02:13: TID, X 7 [place] 00 day, # 21 tab, 0 Refill(s) Cyclobenzap 2017-0 Yes 10 mg, PO, Memoria rine 8-03 TID, PRN l hydrochlori 02:13: Muscle Herm phyllis de 10 MG 00 Spasm, X Oral Tablet 10 day, # [Flexeril] 30 tab, 0 Refill(s) Motrin 800 2017-0 Yes 800 mg = 1 M emoria mg oral 8-03 tab, PO, l tablet 02:13: TID, X 7 Kvng 00 day, # 21 tab, 0 Refill(s) Cyclobenzap 2017-0 Yes 10 mg, PO, Memoria rine 8-03 TID, PRN l hydrochlori 02:13: Muscle Herm phyllis de 10 MG 00 Spasm, X Oral Tablet 10 day, # [Flexeril] 30 tab, 0 Refill(s) Motrin 800 2017-0 Yes 800 mg = 1 M emoria mg oral 8-03 tab, PO, l tablet 02:13: TID, X 7 Kvng 00 day, # 21 tab, 0 Refill(s) Cyclobenzap 2017-0 Yes 10 mg, PO, Memoria rine 8-03 TID, PRN l hydrochlori 02:13: Muscle Herm phyllis de 10 MG 00 Spasm, X Oral Tablet 10 day, # [Flexeril] 30 tab, 0 Refill(s) Motrin 800 2017-0 Yes 800 mg = 1 M emoria mg oral 8-03 tab, PO, l tablet 02:13: TID, X 7 Kvng 00 day, # 21 tab, 0 Refill(s) Cyclobenzap 2017-0 Yes 10 mg, PO, Memoria rine 8 TID, PRN l hydrochlori 02:13: Muscle Herm phyllis de 10 MG 00 Spasm, X Oral Tablet 10 day, # [Flexeril] 30 tab, 0 Refill(s) Motrin 800 0 Yes 800 mg = 1 M emoria mg oral 8-03 tab, PO, l tablet 02:13: TID, X 7 [place] 00 day, # 21 tab, 0 Refill(s) Cyclobenzap 2017-0 Yes 10 mg, PO, Memoria rine 8- TID, PRN l hydrochlori 02:13: Muscle Herm phyllis de 10 MG 00 Spasm, X Oral Tablet 10 day, # [Flexeril] 30 tab, 0 Refill(s) Motrin 800 20170 Yes 800 mg = 1 M emoria mg oral 8- tab, PO, l tablet 02:13: TID, X 7 Kvng 00 day, # 21 tab, 0 Refill(s) Cyclobenzap 2017-0 Yes 10 mg, PO, Memoria rine 8 TID, PRN l hydrochlori 02:13: Muscle Herm phyllis de 10 MG 00 Spasm, X Oral Tablet 10 day, # [Flexeril] 30 tab, 0 Refill(s) Motrin 800 2017-0 Yes 800 mg = 1 M emoria mg oral 8-03 tab, PO, l tablet 02:13: TID, X 7 [place] 00 day, # 21 tab, 0 Refill(s) Cyclobenzap 2017-0 Yes 10 mg, PO, Memoria rine 8- TID, PRN l hydrochlori 02:13: Muscle Herm phyllis de 10 MG 00 Spasm, X Oral Tablet 10 day, # [Flexeril] 30 tab, 0 Refill(s) Motrin 800 2017-0 Yes 800 mg = 1 M emoria mg oral 8-03 tab, PO, l tablet 02:13: TID, X 7 [place] 00 day, # 21 tab, 0 Refill(s) Cyclobenzap 2017-0 Yes 10 mg, PO, Memoria rine 8-03 TID, PRN l hydrochlori 02:13: Muscle Herm phyllis de 10 MG 00 Spasm, X Oral Tablet 10 day, # [Flexeril] 30 tab, 0 Refill(s) Motrin 800 2016-0 Yes 800 mg = 1 M emoria mg oral 8-03 tab, PO, l tablet 02:13: TID, X 7 [place] 00 day, # 21 tab, 0 Refill(s) Cyclobenzap 2017-0 Yes 10 mg, PO, Memoria rine 8-03 TID, PRN l hydrochlori 02:13: Muscle Herm phyllis de 10 MG 00 Spasm, X Oral Tablet 10 day, # [Flexeril] 30 tab, 0 Refill(s) Motrin 800 0 Yes 800 mg = 1 M emoria mg oral 8-03 tab, PO, l tablet 02:13: TID, X 7 Kvng 00 day, # 21 tab, 0 Refill(s) Cyclobenzap 2017-0 Yes 10 mg, PO, Memoria rine 8-03 TID, PRN l hydrochlori 02:13: Muscle Herm phyllis de 10 MG 00 Spasm, X Oral Tablet 10 day, # [Flexeril] 30 tab, 0 Refill(s) Contour Contour No Contour [...] 50 USE DIRECTED One-A-Day One-A-Day No One-A-Day [facility] Men Men Men Family VitaCraves VitaCraves VitaCraves Practic e Pen Needle Pen Needle No Pen Needle [facility] 30 gauge x 30 gauge x [...] TDD 80 increase as directed: TDD 80 FreeStyle FreeStyle No FreeStyle [facility] Alessandra 14 Alessandra 14 Alessandra 14 Fam tabitha Day Sensor Day Sensor Day Sensor Practic e FreeStyle FreeStyle No FreeStyle [facility] Alessandra 14 Alessandra 14 Alessandra 14 Fam tabitha Day Sensor Day Sensor Day Sensor Practic kit APPLY 1 kit APPLY 1 kit APPLY e PATCH TO PATCH TO 1 PATCH TO ARM AND ARM AND ARM AND CHANGE CHANGE CHANGE EVERY 14 EVERY 14 EVERY 14 DAYS DAYS DAYS imipramine imipramine No imipramine [facility] 25 mg 25 mg 25 mg Family tablet TAKE tablet TAKE tablet Practic 1 TABLET BY 1 TABLET BY TAKE 1 e MOUTH TWICE MOUTH TWICE TABLET BY DAILY DAILY MOUTH TWICE DAILY Novolog Novolog No Novolog [facility] [facility] FlexPen FlexPen FlexPen Family U-100 U-100 U-100 Practic Insulin Insulin Insulin e aspart 100 aspart 100 aspart 100 unit/mL (3 unit/mL (3 unit/mL (3 mL) mL) mL) subcutaneou subcutaneou subcutaneo s GIVE s GIVE us GIVE BEFORE BEFORE BEFORE MEALS USING MEALS USING MEALS ICR 1:5; CF ICR 1:5; CF USING ICR 1:50 TOTAL 1:50 TOTAL 1:5; CF DAILY DOSE DAILY DOSE 1:50 TOTAL 50 USE 50 USE DAILY DOSE DIRECTED DIRECTED 50 USE DIRECTED Tresiba Tresiba No Tresiba [facility] [facility] FlexTouch FlexTouch FlexTouch Family U-200 U-200 U-200 Practic insulin 200 insulin 200 insulin e unit/mL (3 unit/mL (3 200 mL) mL) unit/mL (3 subcutaneou subcutaneou mL) s pen Give s pen Give subcutaneo 28 units in 28 units in us pen AM and AM and Give 28 increase as increase as units in directed: directed: AM and TDD 50 TDD 50 increase as directed: TDD 50 FreeStyle FreeStyle No FreeStyle [place] Al[place] 14 [...] EVERY 14 EVERY 14 DAYS DAYS DAYS imipramine imipramine No imipramine [place] 25 mg 25 mg 25 mg Family tablet TAKE tablet TAKE tablet Practic 1 TABLET BY 1 TABLET BY TAKE 1 e MOUTH TWICE MOUTH TWICE TABLET BY DAILY DAILY MOUTH TWICE DAILY Novolog Novolog No Novolog [place] [facility] FlexPen FlexPen FlexPen Family U-100 U-100 U-100 Practic Insulin Insulin Insulin e aspart 100 aspart 100 aspart 100 unit/mL (3 unit/mL (3 unit/mL (3 mL) mL) mL) subcutaneou subcutaneou subcutaneo s GIVE s GIVE us GIVE BEFORE BEFORE BEFORE MEALS USING MEALS USING MEALS ICR 1:5; CF ICR 1:5; CF USING ICR 1:50 TOTAL 1:50 TOTAL 1:5; CF DAILY DOSE DAILY DOSE 1:50 TOTAL 50 USE 50 USE DAILY DOSE DIRECTED DIRECTED 50 USE DIRECTED Tresiba Tresiba No Tresiba [facility] [facility] FlexTouch FlexTouch FlexTouch Family U-200 U-200 U-200 Practic insulin 200 insulin 200 insulin e unit/mL (3 unit/mL (3 200 mL) mL) unit/mL (3 subcutaneou subcutaneou mL) s pen Give s pen Give subcutaneo 28 units in 28 units in us pen AM and AM and Give 28 increase as increase as units in directed: directed: AM and TDD 50 TDD 50 increase as directed: TDD 50 Vital Signs Vital Name Observation Time Observation Value Comments Source Body weight 2022-10-20 20:08:00 87.091 kg Universi ty [facility] BMI 2022-10-20 20:08:00 27.55 kg/m2 [facility] BP Diastolic 2022-07-14 00:00:00 93 mm[Hg] [facility] Height 2022-07-14 00:00:00 71 [in_i] [facility] BMI (Body Mass 2022-07-14 00:00:00 27.5 kg/m2 Vill e Family Index) Practice BP Systolic 2022-07-14 00:00:00 143 mm[Hg] [facility] Body Weight 2022-07-14 00:00:00 197 [lb_av] [facility] Systolic blood 2022-07-07 22:00:00 134 mm[Hg] Univer sity of [facility] Diastolic blood 2022-07-07 22:00:00 83 mm[Hg] [facility] Respiratory rate 2022-07-07 22:00:00 24 /min [facility] Oxygen saturation in 2022-07-07 22:00:00 98 /min [facility] Arterial blood by [facility] [place] [facility] Pulse oximetry [place] Heart rate 2022-07-07 21:45:36 97 /min [facility] Body temperature 2022-07-07 21:45:36 36.56 Deb [facility] weight 2022-07-07 17:05:00 87.091 kg Universi ty [facility] BMI 2022-07-07 17:05:00 27.55 kg/m2 [facility] Sy[facility] blood 2022-06-29 15:26:00 176 mm[Hg] Univer sity of pressure [facility] Diastolic blood 2022-06-29 15:26:00 78 mm[Hg] Unive rsity of pressure [facility] Heart rate 2022-06-29 15:26:00 112 /min [facility] Body temperature 2022-06-29 15:26:00 37.17 Deb Univ ersity [facility] [place] [facility] Respiratory rate 2022-06-29 15:26:00 14 /min Univ ersity [facility] [place] [facility] Body height 2022-06-29 15:26:00 177.8 cm [facility]i ty [facility] [place] [facility] Body weight 2022-06-29 15:26:00 87.181 kg [facility] [place] [facility] BMI 2022-06-29 15:26:00 27.58 kg/m2 [facility] [place] [facility] Oxygen saturation in 2022-06-29 15:26:00 97 /min University of Arterial blood by [place] [employer] [facility] Pulse oximetry Branch Height 2021-12-08 00:00:00 71 [in_i] [facility] BMI (Body Mass 2021-12-08 00:00:00 26.5 kg/m2 [facility] Family Index) Practice Body Weight 2021-12-08 00:00:00 190 [lb_av] [facility] Systolic blood 2021-07-17 04:05:00 130 mm[Hg] Univer sity of pressure [place] [facility] Diastolic blood 2021-07-17 04:05:00 96 mm[Hg] Unive rsity of pressure [place] [facility] Heart rate 2021-07-17 04:05:00 95 /min [facility]i ty [facility] [place] [facility] Respiratory rate 2021-07-17 04:05:00 18 /min Univ ersity [facility] [place] [facility] Oxygen saturation in 2021-07-17 04:05:00 99 /min University of Arterial blood by [place] [employer] [facility] Pulse oximetry Branch Body temperature 2021-07-17 01:58:00 [...] Branch Body temperature 2021-07-17 01:25:00 36.89 Deb [facility] ersity of [facility] Respiratory rate 2021-07-17 01:25:00 18 /min Univ ersity [facility] [place] [facility] Body height 2021-07-17 01:25:00 177.8 cm Universi ty [facility] [place] [facility] [place] Body weight 2021-07-17 01:25:00 85.458 kg [facility]i [facility] [place] [facility] BMI 2021-07-17 01:25:00 27.03 kg/m2 [facility] [place] [facility] Oxygen saturation in 2021-07-17 01:25:00 100 /min University of Arterial blood by [facility] [place] [facility] Pulse oximetry Branch Systolic blood 2021-07-06 08:28:15 120 mm[Hg] Univer sity of pressure [place] [facility] [place] Diastolic blood 2021-07-06 08:28:15 82 mm[Hg] [facility] Heart rate 2021-07-06 08:28:15 99 /min Universi ty [facility] [place] [facility] [place] Respiratory rate 2021-07-06 08:28:15 20 /min [facility] ersity of [facility] Oxygen saturation in 2021-07-06 08:28:15 100 /min University of Arterial blood by [facility] [place] [facility] Pulse oximetry Branch Body temperature 2021-07-06 02:17:00 37.11 Deb [facility] ersity of [place] [facility] [place] Body weight 2021-07-06 02:17:00 86.183 kg [facility]i ty [facility] [place] [facility] [place] BMI 2021-07-06 02:17:00 27.26 kg/m2 [facility] [place] [facility] Body weight 2021-04-22 21:56:00 88.451 kg [facility] [place] [facility] BMI 2021-04-22 21:56:00 27.98 kg/m2 Universi ty [facility] Medical [facility] BP Diastolic 2020-10-21 00:00:00 67 mm[Hg] [facility] Height 2020-10-21 00:00:00 71 [in_i] [facility] BMI (Body Mass 2020-10-21 00:00:00 25.7 kg/m2 [facility] Family Index) Practice BP Systolic 2020-10-21 00:00:00 101 mm[Hg] [facility] Body Weight 2020-10-21 00:00:00 184.2 [lb_av] [facility] Height 2020-06-19 00:00:00 71 [in_i] [facility] BMI (Body Mass 2020-06-19 00:00:00 26.2 kg/m2 [facility] e Family Index) Practice Body Weight 2020-06-19 00:00:00 188 [lb_av] [facility] Respitory Rate 2016-11-24 03:00:00 Memori al [place] Systolic (mm Hg) 2016-11-24 03:00:00 Praneeth rial [place] Diastolic (mm Hg) 2016-11-24 03:00:00 Mem orial Kv[facility] Temperature Oral (F) 2016-11-24 03:00:00 98.2 F [facility] Heart Rate 2016-11-24 03:00:00 [facility] BMI Calculated 2016-11-24 01:48:00 Memori al [facility] Height 2016-11-24 01:48:00 177.8 cm [facility] [place] Weight 2016-11-24 01:48:00 [facility] [place] Respitory Rate 2016-11-24 01:48:00 Memori al [place] Heart Rate 2016-11-24 01:48:00 [facility] Systolic (mm Hg) 2016-11-24 01:48:00 Praneeth rial Kvng Diastolic (mm Hg) 2016-11-24 01:48:00 Mem orial [place] Temperature Oral (F) 2016-11-24 01:48:00 98.1 F [facility] Procedures Procedure Date / Time Performed Performing Clinician Tucker hay POCT GLUCOSE 2022-07-07 21:35[facility] ABDOMEN PELVIS WO 2022-07-07 20:36:00 Singer [facility] CONTRAST Medical Branch POCT GLUCOSE 2022-07-07 19:42:00 [facility] (AUTOMATED) Medical Branch URINALYSIS 2022-07-07 [facility] 2022-07-07 17:32:44 [facility] COMP. METABOLIC PANEL 2022-07-07 17:27:00 Singer [facility] ([id number]) Medical Branch CBC WITH DIFF 2022-07-07 17:27:00 Singer [facility] VBG+[id number] 2022-07-07 17:27:00 Waldo [facility] + Medical Branch LACTIC ACID WHOLE 2022-07-07 17:27:00 Singer [facility] BLOOD Medical Branch POCT GLUCOSE 2022-07-07 17:04:00 Singer [facility] (AUTOMATED) Medical Branch CONSENT/REFUSAL FOR 2022-07-07 16:30:55 Doctor Unassigned, No Un [facility]ity [facility] [place] DIAGNOSIS AND Name Medical Branch TREATMENT CONSENT/REFUSAL FOR 2022-06-29 15:12:05 Doctor Unassigned, No [facility] [place] DIAGNOSIS AND Name Medical Branch TREATMENT [facility] EX[facility] 2021-11-15 05:01:00 Doctor Unassigned, No [facility] MEDICAL RECORDS / Name Medical Branch REFERRALS RAPID INFLUENZA A/B 2021-07-17 03:03:00 Waldo Watkins [facility] Medical Branch COVID-19 (ID NOW RAPID 2021-07-17 03:03:00 Waldo [facility] TESTING) Medical Branch COMP. METABOLIC PANEL 2021-07-17 02:25:00 Waldo Watkins [facility] ([id number]) Medical Branch CBC WITH DIFF 2021-07-17 02:25:00 Singer [facility] POCT GLUCOSE 2021-07-17 02:18:00 Singer [facility] (AUTOMATED) Medical Branch XR CHEST 1 VW 2021-07-17 02:11:52 Singer [facility] Medical Branch CONSENT/REFUSAL FOR 2021-07-17 01:42:52 Doctor Unassigned, No [facility] [place] DIAGNOSIS AND Name Medical Branch TREATMENT POCT GLUCOSE 2021-07-06 09:31:00 Olivia Muhammad [facility] (AUTOMATED) Medical Branch LIPASE 2021-07-06 03:10:00 Jb [facility] Medical Branch TROPONIN I 2021-07-06 03:10:00 Juan C Kunz [facility] ty [facility] COMP. METABOLIC PANEL 2021-07-06 03:10:00 Olivia Muhammad [facility] ([id number]) [facility] CBC WITH DIFF 2021-07-06 03:10:00 Olivia Muhammad [facility] [place] y [facility] EXTRA TUBE DK. GREEN 2021-07-06 03:10:00 Olivia Muhammad [facility] CONSENT/REFUSAL FOR 2021-07-06 02:15:31 Doctor Unassigned, No [facility] Branch TREATMENT [facility] CONSENT 2021-05-24 21:01:50 Doctor Unassigned, No U [facility] FOR FREE TREATMENT Name [facility] h FORM Removal of silastic [facility] fox tubes from ear Plan of Care Planned Activity Planned Date Details Comments Source Diagnostic Test 2022-07-14 glucose, fingerstick, Alice [facility] Family Pending 00:00:00 blood [code = Practice glucose, fingerstick, blood] Diagnostic Test 2022-07-14 hemoglobin A1C, [place] F benji Pending 00:00:00 fingerstick [code = Practice hemoglobin A1C, fingerstick] Encounters Start End Encounter Admission Attending Care Care Encounter Source Date/Time Date/Time Type Type Clinicians Facility Department ID 2021-04-20 Emergency X BRITTON [facility] OPH [id number] [facility] 2023-01-05 2023-01-05 Outpatient R BETH MANUEL [facility] [id number] Univers 14:30:00 14:30:00 BETH MANUEL [facility] 2023-01-03 2023-01-03 Telephone Ramón [facility] [id number] Univers 00:00:00 00:00:00 Leonid [id number] [facility] [id number] [facility] [id number] [address] DIABETES CLINIC 2022-12-13 2022-12-13 Outpatient R RAMÓN [facility] [id number] Univers 09:30:00 09:30:00 LEONID [facility] 2022-12-12 2022-12-12 [facility] [id number] Univers 00:00:00 00:00:00 [facility] MULTISPEC [id number] ity of [id number] [place] [id number] [address] DIABETES CLINIC 2022-11-04 2022-11-04 Telephone [facility] [id number] Univers 00:00:00 00:00:00 [facility] [id number] it y of EYE [id number] [facility] [place] [id number] [address] 2022-11-02 2022-11-02 Telephone [facility] [id number] Univers 00:00:00 00:00:00 [facility] [id number] it y of EYE [id number] [facility] [facility] [phone] [address] 2022-10-21 2022-10-21 Telephone [facility] 1.2.566.718 [id number] Univers 00:00:00 00:00:00 Beth HEALTH 350.1.13.10 it y of EYE 4.2.7.2.686 [facility] [place] [id number] [address] 2022-10-20 2022-10-20 Outpatient R MAR [facility] [id number] Univers 15:00:00 15:44:35 BETH MANUEL ity [facility] 2022-10-20 2022-10-20 Office [facility] 1.2.840.114 [id number] Univers 15:00:00 15:44:35 Visit [facility] 350.1.13.10 it y of EYE 4.2.7.2.686 [facility] [place] [phone] [address] 2022-08-13 2022-08-13 Outpatient Helder_Shilo_PATRICK VFP VFP [id number] Village 00:00:00 00:00:00 U_MD [id number] Family Practic e 2022-07-14 2022-07-14 Outpatient Daniel_T VFP VFP [id number] [address] [place] [address] 00:00:00 00:00:00 [id number] Family Practic e 2022-07-14 2022-07-14 Outpatient Daniel_T VFP VFP [id number] [address] [place] [address] 00:00:00 00:00:00 [id number] Family Practic e 2022-07-14 2022-07-14 Ted VFP [place] - [id number] V illage 00:00:00 00:00:00 [facility] Family Helder, Medical - Pracolivia reyna MD: [id number] [place] - e Shadow VM_HOU_Shad [address], [address], [place] [address] , Ph. 2022-07-07 2022-07-07 Emergency X SINGER [facility] ERT [id number] Univers 12:00:00 17:16:00 WALDO matos [facility] 2022-07-07 2022-07-07 Emergency [facility] 1.2.956.796 [id number] Univers 12:00:00 17:16:00 Waldo BUTT 350.1.13.10 i [facility] 4.2.7.2.686 [facility] [id number] [facility] [address] 2022-06-30 2022-06-30 KHANH Pace 1.2.840.114 [id number] Univers 00:00:00 00:00:00 (Out) Maribel OLIVARES 350.1.13.10 it [facility] 4.2.7.2.686 Leo [phone] [facility] [address] 2022-06-29 2022-06-29 Outpatient R YOSELIN [facility] [id number] Univers 09:00:00 09:46:33 MIREILLEU carlo [facility] 2022-06-29 2022-06-29 Urgent Joni Wyatt [facility] 1.2.840.11 [id number] Univers 09:00:00 09:46:33 Care Unknown, Attending HEALTH 350.1.13.10 ity of [facility] 4.2.7.2.686 Leo as BELINDA?BLEA [phone] Co dicserafin [facility] [address] MEDICAL OFFICE BUILDING 2022-06-29 2022-06-29 Orders Doctor KHANH 1.2.840.114 [id number] Univers 00:00:00 00:00:00 Only Unassigned, MARSHALL 350.1.13.10 ity of [place] [facility] 4.2.7.2.686 Leo as [phone] [address] 2022-06-10 2022-06-10 Outpatient Daniel_T VFP VFP [id number] [address] [place] [address] 00:00:00 00:00:00 [id number] Family Practic e 2022-06-09 2022-06-09 Outpatient Daniel_T VFP VFP [id number] [address] [place] [address] 00:00:00 00:00:00 [id number] Family Practic e 2021-12-23 2021-12-23 Outpatient Daniel_T VFP VFP [id number] [address] [place] [address] 00:00:00 00:00:00 [id number] Family Practic e 2021-12-22 2021-12-22 Outpatient Daniel_T VFP VFP [id number] [address] [place] [address] 00:00:00 00:00:00 [id number] Family Practic e 2021-12-21 2021-12-21 Outpatient Daniel_T VFP VFP [id number] [address] [place] [address] 00:00:00 00:00:00 [id number] Family Practic e 2021-12-20 2021-12-20 Outpatient Daniel_T VFP VFP [id number] [address] [place] [address] 00:00:00 00:00:00 [id number] Family Practic e 2021-12-18 2021-12-18 Outpatient Daniel_T VFP VFP [id number] [address] [place] [address] 00:00:00 00:00:00 [id number] Family Practic e 2021-12-17 2021-12-17 Outpatient Daniel_T VFP VFP [id number] [address] [place] [address] 00:00:00 00:00:00 [id number] Family Practic e 2021-12-15 2021-12-15 Outpatient Daniel_T VFP VFP [id number] [address] [place] [address] 00:00:00 00:00:00 [id number] Family Practic e 2021-12-14 2021-12-14 Outpatient Daniel_T VFP VFP [id number] [address] [place] [address] 00:00:00 00:00:00 [id number] Family Practic e 2021-12-10 2021-12-10 Outpatient Daniel_T VFP VFP [id number] [address] [place] [address] 00:00:00 00:00:00 [id number] Family Practic e 2021-12-08 2021-12-08 Outpatient Daniel_T VFP VFP [id number] [address] 00:00:00 00:00:00 [id number] Family Practic e 2021-12-08 2021-12-08 Ted VFP [place] - [id number] V illage 00:00:00 00:00:00 [facility] Family [place], Medical - Pracolivia reyna MD: [id number] VM_HOU_Shad e Shadow ow Long Long [facility], [address], [place] [address] , Ph. 2021-11-15 2021-11-15 Orders Doctor KHANH 1.2.840.114 [id number] 00:00:00 00:00:00 Only Unassigned, MARSHALL 350.1.13.10 ity of [place] [facility] 4.2.7.2.686 Leo as [phone] [address] 2021-08-02 2021-08-02 [facility] 1.2.456.323 [id number] Univers 00:00:00 00:00:00 Nekatarzyna SPECIALTY 350.1.13.10 ity of CARE 4.2.7.2.686 [place] C[place] AT [phone] Co dic[address] 2021-07-30 2021-07-30 Outpatient R TABITHA ROSE [facility] [id number] Univers 13:30:00 13:30:00 TABITHA ROSE itjessie [facility] 2021-07-16 2021-07-16 Emergency [facility] 1.2.818.572 [id number] Univers 21:04:00 23:28:00 Waldo BUTT 350.1.13.10 i ty of [place] 4.2.7.2.686 [place] [phone] [facility] 0[address] 2021-07-16 2021-07-16 Outpatient R SINGER [facility] ERT [id number] Univers 21:02:29 21:02:29 WALDO [facility] 2021-07-16 2021-07-16 Urgent Nurse, [facility] 1.2.840.114 [id number] Univers 20:20:00 20:40:00 [facility] 350.1.13.10 ity of [place] 4.2.7.2.686 Leo as BELINDA?BLEA [phone] Co reno RITESH [address] [place] [address] MEDICAL OFFICE BUILDING 2021-07-16 2021-07-16 Outpatient R OSIRIS [facility] [id number] Univers 20:20:00 20:20:00 [facility] 2021-07-05 2021-07-06 Emergency X JB [facility] ERT [id number] Univers 21:19:00 04:37:00 OLIVIA [facility] 2021-07-05 2021-07-06 Emergency Dalmedo, Ziggy TRAUMA 1.2.840 .114 [id number] Univers 21:19:00 04:37:00 robson [facility] 350.1.13.10 ity of [place]2.7.2.686 [place] [id number] [facility] 014 Branch 2021-05-24 2021-05-24 Orders Doctor KHANH 1.2.840.114 [id number] Univers 00:00:00 00:00:00 Only Unassigned, MARSHALL 350.1.13.10 ity of [place] [facility] 4.2.7.2.686 Leo as [id number] [facility] 009 [address] 2021-04-22 2021-04-22 Outpatient R BETH MANUEL [facility] [id number] Univers 14:45:00 16:44:38 BETH MANUEL [facility] 2021-04-22 2021-04-22 Office Mar [facility] 1.2.840.114 [id number] Univers 14:45:00 16:44:38 Visit Beth MATTHEWS 350.1.13.10 ity of [place] 4.2.7.2.686 [place] [phone] [facility] [place] [address] [facility] 2021-04-22 2021-04-22 Orders Doctor KHANH 1.2.840.114 [id number] Univers 00:00:00 00:00:00 Only Unassigned, MARSHALL 350.1.13.10 ity of [facility] 4.2.7.2.686 Leo [id number] [facility] 009 Branch 2021-04-21 2021-04-21 Emergency X KIMI [facility] ERT [id number] Univers 01:59:00 03:30:00 ANGELA ity [facility] 2021-04-21 2021-04-21 Emergency Britton, Aishat Tila TRAUMA 1.2.840.114 [id number] Univers 01:59:00 03:30:00 Ted Yanez [place] 350.1.13.10 ity of 4.2.7.2.686 [facility] [id number] [facility] 014 Branch 2021-04-21 2021-04-21 Emergency X [facility] ERT [id number] Univers 01:30:00 01:30:00 ity of [facility] 2021-04-20 2021-04-21 Emergency X KIMI [facility] ERT [id number] Univers 22:55:00 01:01:00 ANGELA ity [facility] 2021-04-20 2021-04-21 Emergency Kmii NVVIOLA 1.2.147.540 [id number] Univers 22:55:00 01:01:00 Angela S FILOMENA 350.1.13.10 i ty of [place] 4.2.7.2.686 [place] [phone] [facility] 084 [address] 2021-04-21 2021-04-21 Telephone ILZ Manuel 1.2.180.138 [id number] Univers 00:00:00 00:00:00 Beth MULTISPEC 350.1.13.10 ity of [place] 4.2.7.2.686 [place] [id number] [facility] [place] 136 [address] [facility] 2021-04-20 2021-04-20 Nurse Shirley CASSIDY 1.2.840.114 [id number] Univers 00:00:00 00:00:00 Triage Sarkis MARSHALL 350.1.13.10 ity of [facility] 4.2.7.2.686 Leo as [id number] [facility] 019 [address] 2021-04-20 2021-04-20 Orders Doctor KHANH 1.2.840.114 [id number] Univers 00:00:00 00:00:00 Only Unassigned, MARSHALL 350.1.13.10 ity of [facility] 4.2.7.2.686 Leo as [id number] [facility] 009 [address] 2021-01-07 2021-01-07 Outpatient Daniel_T VFP VFP [id number] [address] [place] [address] 00:00:00 00:00:00 [id number] Family Practic e 2020-12-16 2020-12-16 Letter KHANH Owens 1.2.840.114 [id number] Univers 00:00:00 00:00:00 (Out) Olivia Lao MARSHALL 350.1.13.10 it y of [facility] 4.2.7.2.686 Leo as [phone] [place] [address] Branch 2020-12-14 2020-12-14 Outpatient Karol DAWSON [facility] [id number] [facility] 17:40:00 17:40:00 SUSHMA zapata [facility] 2020-12-03 2020-12-03 Outpatient Daniel_T VFP VFP [id number] [address] [place] [address] 01:20:00 01:20:00 [id number] Family Practic e 2020-10-29 2020-10-29 Outpatient Daniel_T VFP VFP [id number] [address] [place] [address] 01:46:00 01:46:00 [id number] Family Practic e 2020-10-23 2020-10-23 Outpatient Daniel_T VFP VFP [id number] [address] [place] [address] 09:07:00 09:07:00 [id number] Family Practic e 2020-10-21 2020-10-21 Outpatient Daniel_T VFP VFP [id number] [address] [place] [address] 06:24:00 06:24:00 [id number] Family Practic e 2020-10-21 2020-10-21 Ted VFP [place] - [id number] V illage 00:00:00 00:00:00 [facility] Family PendletonDoroteo - Pracolivia reyna MD: [id number] FABIANA_Oliver hay Shadow [facility], [address], [place] [address] , Ph. 2020-09-25 2020-09-25 Outpatient Daniel_T VFP VFP [id number] [address] [place] [address] 01:01:00 01:01:00 [id number] Family Practic e 2020-08-21 2020-08-21 Outpatient Daniel_T VFP VFP [id number] [address] [place] [address] 01:02:00 01:02:00 [id number] Family Practic e 2020-08-14 2020-08-14 Outpatient Daniel_T VFP VFP [id number] [address] [place] [address] 02:02:00 02:02:00 [id number] Family Practic e 2020-07-03 2020-07-03 Outpatient Daniel_T VFP VFP [id number] [address] [place] [address] 01:07:00 01:07:00 [id number] Family Practic e 2020-06-19 2020-06-19 Outpatient Daniel_T VFP VFP [id number] [address] [place] [address] 05:48:00 05:48:00 [id number] Family Practic e 2020-06-19 2020-06-19 Ted VFP [place] - [id number] V illage 00:00:00 00:00:00 [facility] Family PendletonDoroteo - Pracolivia reyna MD: [id number] JESSIKA_TRESSA_Oliver hay Shadow [facility], [address], [place] [address] , Ph. 2020-05-17 2020-05-17 Outpatient Daniel_T VFP VFP [id number] [address] [place] [address] 01:04:00 01:04:00 [id number] Family Practic e 2020-05-14 2020-05-14 Outpatient Daniel_T VFP VFP [id number] [address] [place] [address] 12:02:00 12:02:00 [id number] Family Practic e 2020-03-27 2020-03-27 Telephone [facility] 1.2.154.360 [id number] Univers 00:00:00 00:00:00 Nciola [facility] 350.1.13.10 it y of Surgical 4.2.7.2.686 Leo as Specialti [phone] Co dical es 198 [facility] 2020-03-12 2020-03-12 Outpatient [facility] [id number] Univers 09:00:00 09:00:00 [facility] 2020-03-04 2020-03-04 Orders Doctor KHANH 1.2.840.114 [id number] Univers 00:00:00 00:00:00 Only Unassigned, MARSHALL 350.1.13.10 ity of [place] [facility] 4.2.7.2.686 Leo as [id number] [address] 2020-03-04 2020-03-04 Orders Doctor KHANH 1.2.840.114 [id number] 00:00:00 00:00:00 Only Unassigned, MARSHALL 350.1.13.10 [place] [facility] 4.2.7.2.686 [id number] 009 2020-02-25 2020-02-25 [facility] 1.2.840.114 [id number] Univers 09:18:37 23:59:00 Encounter Caitlin Felix [facility] 350.1.13.10 ity of Surgical 4.2.7.2.686 Leo as Specialti [phone] Co dical es 809 [facility] 2020-02-25 2020-02-25 [facility] 1.2.840.114 [id number] 09:18:37 23:59:00 Encounter Caitlin L Health 350.1.13.10 Surgical 4.2.7.2.686 Specialti [id number] [address] [place] [address] 2020-02-25 2020-02-25 Outpatient [facility] [id number] Univers 11:00:00 11:00:00 NICOLA carlo [facility] 2020-02-25 2020-02-25 Office [facility] 1.2.840.114 [id number] Univers 09:02:34 09:17:34 Visit Nicola S Health 350.1.13.10 it y of Surgical 4.2.7.2.686 Leo as Specialti [phone] Co dical es 198 [facility] 2020-02-25 2020-02-25 Office [facility] 1.2.840.114 [id number] 09:02:34 09:17:34 Visit Nicola S Health 350.1.13.10 Surgical 4.2.7.2.686 Specialti [id number] es [address] [place] 2020-02-21 2020-02-21 Telephone [facility]AD[facility] 1.2.635.138 [id number] Univers 00:00:00 00:00:00 Nicola S Health 350.1.13.10 it y of Surgical 4.2.7.2.686 Leo as Specialti [phone] Co dical es 198 [facility] 2020-02-21 2020-02-21 Telephone [facility] 1.2.335.453 [id number] 00:00:00 00:00:00 Nicola S Health 350.1.13.10 Surgical 4.2.7.2.686 Specialti [id number] es [address] 2020-02-17 2020-02-17 Rosenhayn StevenAD[facility] 1.2.244.071 [id number] Univers 00:00:00 00:00:00 Nicola S Health 350.1.13.10 it y of Surgical 4.2.7.2.686 Leo as Specialti [phone] Co dical es 198 [facility] 2020-02-13 2020-02-13 Rosenhayn Zach[facility]AD[facility] 1.2.840.114 [id number] Univers 00:00:00 00:00:00 Caitlin L Health 350.1.13.10 it y of Surgical 4.2.7.2.686 [place] as Specialti [phone] Co dical es 198 [facility] 2020-02-12 2020-02-12 Orders Doctor KHANH 1.2.840.114 [id number] Univers 00:00:00 00:00:00 Only Unassigned, MARSHALL 350.1.13.10 ity of [place] [facility] 4.2.7.2.686 Leo as [id number] [address] 2020-02-09 2020-02-09 Telephone Zachary [facility] 1.2.840.114 [id number] Univers 00:00:00 00:00:00 Caitlin Lewis 350.1.13.10 it y of Surgical 4.2.7.2.686 [place] as Specialti [phone] Co dical es 198 [facility] 2020-02-05 2020-02-05 Telephone [facility] 1.2.840.114 [id number] Univers 00:00:00 00:00:00 Caitlin Felix Health 350.1.13.10 it y of Surgical 4.2.7.2.686 [place] as Specialti [phone] Co dical es 198 [facility] 2020-02-04 2020-02-04 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 Mela, Ad[facility] Lab Main [facility] 1.2.8 40.114 [id number] Univers 10:22:40 10:37:40 Visit Zachary Caitlinsandrine [place] 350.1.13.10 ity [facility] 4.2.7.2.686 [place] Profess[place] [phone] Co dical nal 353 [facility] 2020-02-04 2020-02-04 Outpatient [facility] [id number] Univers 10:00:00 10:00:00 CAITLIN itjessie [facility] 2020-02-03 2020-02-03 Office Steven [facility] 1.2.840.114 [id number] Univers 14:56:01 15:11:01 Visit [facility] 350.1.13.10 it y of Surgical 4.2.7.2.686 [place] as Specialti [phone] Co dical es 198 [facility] 2020-02-03 2020-02-03 Outpatient R STEVEN [facility] [id number] Univers 14:45:00 14:45:00 NICOLA itjessie [facility] 2019-07-22 2019-07-22 Telephone [facility] 1.2.840.114 [id number] Univers 00:00:00 00:00:00 Wondiful A [place] 350.1.13.10 ity of [place].2.7.2.686 [place] Profess[place] [phone] Co dical nal 044 [facility] 2019-07-18 2019-07-18 Orders Doctor KHANH 1.2.840.114 [id number] Univers 00:00:00 00:00:00 Only Unassigned, MARSHALL 350.1.13.10 ity of [facility] 4.2.7.2.686 Leo as [phone] [address] 2016-11-24 2016-11-24 Emergency nullFlavo [facility] [id number] Memoria 01:46:00 03:02:[address] [facility] 2016-11-24 2016-11-24 Emergency nullFlavo [facility] [id number] Memoria 01:46:00 03:02:[address] [facility] 2016-11-23 2016-11-23 Outpatient EULOGIO Almonte [facility] [id number] 20:46:00 22:02:00 Abdiwahab 00 [facility] 2009-02-13 2009-02-13 Outpatient [facility] [id number] Univers 00:00:00 11:08:00 3 ity [facility] 2008-11-04 2008-11-04 Outpatient [facility] [id number] Univers 00:00:00 16:27:00 [facility] 2008-09-09 2008-09-09 Outpatient [facility] [id number] Univers 00:00:00 12:39:00 2 ity [facility] 2008-08-06 2008-08-06 Outpatient [facility] [id number] Univers 00:00:00 14:06:00 7 ity [facility] 2008-02-15 2008-02-15 Outpatient [facility] [id number] Univers 00:00:00 11:52:00 2 ity [facility] 2007-07-24 2007-07-24 Outpatient [facility] [id number] Univers 00:00:00 17:46:00 3 ity [facility] 2007-03-27 2007-03-27 Outpatient [facility] [id number] Univers 00:00:00 16:02:00 2 ity [facility] 2007-02-13 2007-02-13 Outpatient [facility] [id number] Univers 00:00:00 16:34:00 3 [facility] 2006-10-09 2006-10-09 Outpatient [facility] [id number] Univers 00:00:00 17:00:00 4 [facility] 2006-09-03 2006-09-05 Inpatient O KENDALL BOWEN [facility] PED [id number] Univers 22:36:00 16:54:00 9 [facility] 2006-05-11 2006-05-11 Outpatient [facility] [id number] Univers 00:00:00 17:17:00 5 [facility] 2005-09-30 2005-10-02 Inpatient X DEBIMICHELLE ISA [facility] PED 30 [id number] Univers 10:54:00 11:12:00 ISA CARR 4 [facility] 2005-07-21 2005-07-21 Outpatient [facility] [id number] Univers 00:00:00 17:07:00 2 [facility] 2005-05-12 2005-05-12 Outpatient [facility] [id number] Univers 00:00:00 16:33:00 4 [facility] Results Test Description Test Time Test Comments Results Result Comments Source Glucose [Mass/volume] in Capillary blood 2022-07-14 15:21:50 Test Item Value Reference Range Interpretation Comme nts Blood Glucose: mg/dl (test code = Blood Glucose: mg/dl) 150 [facility] PracticeGlucose [Mass/volume] in Capillary [id number] 15:21:50 Test Item Value Reference Range Interpretation Comments Blood Glucose: mg/dl (test code = Blood 150 Glucose: mg/dl) [facility] [id number] 15:14:26 Test Item Value Reference Range Interpretation Comments Hemoglobin A1c/Hemoglobin.total in 9.3 % 5.7-6.4 Blood (test code = 4548-4) [facility] [id number] 15:14:26 Test Item Value Reference Range Interpretation Comments Hemoglobin A1c/Hemoglobin.total in 9.3 % 5.7-6.4 Blood (test code = 4548-4) [facility]2022-07-07 21:35:51 Test Item Value Reference Range Interpretation Comments POCT GLU (test code = 2027253183) 307 mg/dL 70-110 H Lab Interpretation (test code = Abnormal 38745-2) [facility] GLUCOSE (AUTOMATED)2022-07-07 19:44:29 Test Item Value Reference Range Interpretation Comments POCT GLU (test code = 2816363595) 316 mg/dL 70-110 H Lab Interpretation (test code = Abnormal 89898-3) [facility] GLUCOSE (AUTOMATED)2022-07-07 17:05:28 Test Item Value Reference Range Interpretation Comments POCT GLU (test code = 4277617770) 365 mg/dL 70-110 H Lab Interpretation (test code = Abnormal 62000-7) [facility]. METABOLIC PANEL (63418)2021-07-17 03:33:01 Test Item Value Reference Range Interpretation Comments NA (test code = 133 mmol/L 135-145 L 7344084860) K (test code = 4.2 mmol/L 3.5-5.0 7791243355) CL (test code = 95 mmol/L 98-108 L 4467121813) CO2 TOTAL (test code = 29 mmol/L 23-31 7080502110) AGAP (test code = 2-16 8946098254) BUN (test code = 21 mg/dL 7-23 7427469799) GLUCOSE (test code = 385 mg/dL 70-110 H 1156558206) CREATININE (test code = 0.90 mg/dL 0.60-1.25 1423501187) TOTAL BILI (test code = 0.9 mg/dL 0.1-1.8 9650638630) CALCIUM (test code = 8.6 mg/dL 8.6-10.6 5458527343) T PROTEIN (test code = 6.3 g/dL 6.3-8.2 4152012492) ALBUMIN (test code = 3.8 g/dL 3.5-5.0 8928904419) ALK PHOS (test code = 59 U/L 34-122 2517063488) ALTv (test code = 37 U/L 5-50 1742-6) AST(SGOT) (test code = 33 U/L 13-40 4901384783) eGFR (test code = mL/min/1.73m2 8331801159) PARKER (test code = PARKER) Association of [...] tests). Lab Interpretation Abnormal (test code = 34720-3) [facility]2021-07-17 02:56:30 Test Item Value Reference Range Interpretation Comments POCT GLU (test code = 4019433641) 446 mg/dL 70-110 H Lab Interpretation (test code = Abnormal 51408-1) [facility] WITH [id number] 02:53:13 Test Item Value Reference Range Interpretation Comments WBC (test code = See_Comment [Automated 6790-2) message] The sy stem which generated this result transmitted reference range : 4.20 - 10.70 10*3/?L. The reference range was not used to interpret this result as normal/abnormal . RBC (test code = See_Comment L [Automated 799-8) message] The sy stem which generated this [...] (test code = 35.9 fL 38.5-51.6 L 74951-6) RDW-CV (test code = 12.8 % 12.1-15.4 788-0) PLT (test code = See_Comment [Automated 777-3) message] The sy stem which generated this result transmitted reference range : 150 - 328 10*3/ ?L. The reference r aixa was not used to interpret this result as normal/abnormal . MPV (test code = 10.4 fL 9.8-13.0 92883-8) NRBC/100 WBC (test See_Comment [Automat ed code = [id number]) message] The system which generated this result transmitted reference range : 0.0 - 10.0 /100 WBCs. The refer ence range was not u sed to interpret th is result as normal/abnormal . NRBC x10^3 (test code <0.01 See_Comment [Auto mated = [id number]) message] The s ystem which generated this result transmitted reference range : 10*3/?L. The reference range was not used to interpret this result as normal/abnormal . GRAN MAT (NEUT) % 49.8 % (test code = 770-8) IMM GRAN % (test code 0.20 % = [id number]) LYMPH % (test code = 39.2 % 736-9) MONO % (test code = 8.7 % 5905-5) EOS % (test code = 1.9 % 713-8) BASO % (test code = 0.2 % 706-2) GRAN MAT x10^3(ANC) 2.12 10*3/uL 1.99-6.95 (test code = [id number]) IMM GRAN x10^3 (test <0.03 0.00-0.06 code = [id number]) LYMPH x10^3 (test code 1.67 10*3/uL 1.09-3.23 = 731-0) MONO x10^3 (test code 0.37 10*3/uL 0.36-1.02 = 742-7) EOS x10^3 (test code = 0.08 10*3/uL 0.06-0.53 711-2) BASO x10^3 (test code <0.03 0.01-0.09 = 704-7) Lab Interpretation Abnormal (test code = 59341-3) [facility]:32:34 Test Item Value Reference Range Interpretation Comments POCT GLU (test code = [id number]) 312 mg/dL 70-110 H Lab Interpretation (test code = Abnormal 66565-8) [facility] [id number] 07:02:35 Test Item Value Reference Interpretation Comments Range TROPONIN I (test 0.004 ng/mL See_Comment [Automated code = [id number]) message] The system which generated this result [...] biotin. Lab Interpretation Normal (test code = 18627-6) [facility] 06:49[facility]16 Test Item Value Reference Range Interpretation Comments LIPASE (test code = 0496828141) 23 U/L 0-220 Lab Interpretation (test code = Normal 59545-0) [facility] WITH [id number] 03:49:28 Test Item Value Reference Range Interpretation [...] (test code = 36.2 fL 38.5-51.6 L 17236-7) RDW-CV (test code = 12.1 % 12.1-15.4 788-0) PLT (test code = See_Comment [Automated 777-3) message] The sy stem which generated this result transmitted reference range : 150 - 328 10*3/ ?L. The reference r aixa was not used to interpret this result as normal/abnormal . MPV (test code = 9.9 fL 9.8-13.0 66896-9) IPF % (test code = 3.1 % 1.2-10.7 Platelet count 8835735337) measured by fluorescence method. NRBC/100 WBC (test See_Comment [Automat ed code = 6842072941) message] The system which generated this result transmitted reference range : 0.0 - 10.0 /100 WBCs. The refer ence range was not u sed to interpret th is result as normal/abnormal . NRBC x10^3 (test code <0.01 See_Comment [Auto mated = 5211872000) message] The s ystem which generated this result transmitted reference range : 10*3/?L. The reference range was not used to interpret this result as normal/abnormal . GRAN MAT (NEUT) % 77.8 % (test code = 770-8) IMM GRAN % (test code 0.30 % = 2228725357) LYMPH % (test code = 17.0 % 736-9) MONO % (test code = 4.2 % 5905-5) EOS % (test code = 0.3 % 713-8) BASO % (test code = 0.4 % 706-2) GRAN MAT x10^3(ANC) 5.87 10*3/uL 1.99-6.95 (test code = 7000466545) IMM GRAN x10^3 (test <0.03 0.00-0.06 code = 2681451449) LYMPH x10^3 (test code 1.28 10*3/uL 1.09-3.23 = 731-0) MONO x10^3 (test code 0.32 10*3/uL 0.36-1.02 L = 742-7) EOS x10^3 (test code = <0.03 0.06-0.53 L 711-2) BASO x10^3 (test code 0.03 10*3/uL 0.01-0.09 = 704-7) Lab Interpretation Abnormal (test code = 14464-3) [facility]. METABOLIC PANEL (34220)2021-07-06 03:36:26 Test Item Value Reference Range Interpretation Comments NA (test code = 135 mmol/L 135-145 0184178370) K (test code = 4.2 mmol/L 3.5-5.0 3595919002) CL (test code = 100 mmol/L 98-108 8361715248) CO2 TOTAL (test code = 25 mmol/L 23-31 5874825538) AGAP (test code = 2-16 8889757851) BUN (test code = 31 mg/dL 7-23 H 0346186867) GLUCOSE (test code = 337 mg/dL 70-110 H 1042099794) CREATININE (test code = 1.40 mg/dL 0.60-1.25 H 4546197617) TOTAL BILI (test code = 1.0 mg/dL 0.1-1.7 6661292138) CALCIUM (test code = 9.2 mg/dL 8.6-10.6 7924283896) T PROTEIN (test code = 7.7 g/dL 6.3-8.2 7699174724) ALBUMIN (test code = 4.8 g/dL 3.5-5.0 4285851175) ALK PHOS (test code = 79 U/L 34-122 1785335488) ALTv (test code = 26 U/L 5-50 1742-6) AST(SGOT) (test code = 25 U/L 13-40 6253942476) eGFR (test code = mL/min/1.73m2 3083026613) PARKER (test code = PARKER) Association of [...] tests). Lab Interpretation Abnormal (test code = 18277-3) [facility] [id number] 02:01:00 Test Item Value Reference Range Interpretation Comments CULTURE (BEAKER) (test No growth in 5 days code = 1095) BLOOD [id number] 02:01:00 Test Item Value Reference Range Interpretation Comments CULTURE (BEAKER) (test No growth in 5 days code = 1095) MRSA [id number] 09:59:00 Test Item Value Reference Range Interpretation Comments CULTURE (BEAKER) (test code No MRSA isolated = 1095) TISSUE [id number] 15:35:00Surgical Pathology Report Case: [id number] Authorizing Provider: Won Randall MD Collected: 10/17/2018 0823 Ordering Location: [address] Received: 10/17/2018 1401 Service Pathologist: Natividad Shrestha MD Specimens: A) - Duodenum, random bx B) - Biopsy, Gastric, body and antrum A. DUODENUM , RANDOM BIOPSY- NO DIAGNOSTIC ALTERATIONB. STOMACH, BODY AND ANTRUM, BIOPSY- CHRONIC INACTIVE GASTRITIS, MILD- NO INTESTINAL METAPLASIA, DYSPLASIA OR INVASIVE CARCINOMA IDENTIIFIED- NO HELICOBACTERPYLORI LIKE ORGANISMS IDENTIFIED ON WARTHIN STARRY STAIN Signing Pathologist Direct Phone Line: [phone] signed by Natividad Shrestha MD on 10/18/2018 at 3:35 [id number] x 2, 74204Oec and postop diagnosis: intractable vomiting, presence of [...] evaluated Immunohistochemistry technical testing was performed at [facility], Pathology Laboratory where it was [...] to perform high complexity clinical laboratory testing.POCT-GLUCOSE [id number] 10:09:00 Test Item Value Reference Range Interpretation Comments POC-GLUCOSE METER 118 mg/dL 70-110 H TESTED AT [facility] 6720 (BEAKER) (test code = CAROLA Roberson [place] 1538) [address] [id number] 06:56:00 Test Item Value Reference Range Interpretation Comments MAGNESIUM (BEAKER) (test code = 2.0 mg/dL 1.6-2.6 627) BASIC METABOLIC [id number] 06:40:00 Test Item Value Reference Range Interpretation [...] NOT APPLICABLE FOR DIALYSIS PATIEN TS. POCT-GLUCOSE [id number] 20:40:00 Test Item Value Reference Range Interpretation Comments POC-GLUCOSE METER 172 mg/dL 70-110 H TESTED AT [place] [address] ([facility] (test code = CAROLA Roberson [place] 1538) [address] POCT-GLUCOSE [id number] 18:25:00 Test Item Value Reference Range Interpretation Comments POC-GLUCOSE METER 200 mg/dL 70-110 H TESTED AT [place] [address] ([facility] (test code = CAROLA Roberson [place] 1538) [address] POCT-GLUCOSE [id number] 15:26:00 Test Item Value Reference Range Interpretation Comments POC-GLUCOSE METER 232 mg/dL 70-110 H TESTED AT [place] [address] ([facility] (test code = CAROLA Roberson [place] 1538) [address] POCT-GLUCOSE [id number] 13:00:00 Test Item Value Reference Range Interpretation Comments POC-GLUCOSE METER 228 mg/dL 70-110 H TESTED AT [place] [address] ([facility] (test code = CAROLA Roberson [place] 1538) [address] POCT-GLUCOSE [id number] 10:43:00 Test Item Value Reference Range Interpretation Comments POC-GLUCOSE METER 207 mg/dL 70-110 H TESTED AT [place] [address] ([facility] (test code = CAROLA Roberson [facility] 1538) [address] POCT-GLUCOSE [id number] 09:16:00 Test Item Value Reference Range Interpretation Comments POC-GLUCOSE METER 269 mg/dL 70-110 H TESTED AT [place] [address] ([facility] (test code = CAROLA Roberson [facility] 1538) [address] POCT-GLUCOSE [id number] 07:26:00 Test Item Value Reference Range Interpretation Comments POC-GLUCOSE METER 239 mg/dL 70-110 H TESTED AT [place] [address] ([facility] (test code = CAROLA Roberson [facility] 1538) [address] BASIC METABOLIC [id number] 06:42:00 Test Item Value Reference Range Interpretation [...] S NOT APPLICABLE FOR DIALYSIS PATIEN TS. [id number] 06:42:00 Test Item Value Reference Range Interpretation Comments PHOSPHORUS (BEAKER) (test code = 2.0 mg/dL 2.3-4.7 L 604) [id number] 06:42:00 Test Item Value Reference Range Interpretation Comments MAGNESIUM (BEAKER) (test code = 2.3 mg/dL 1.6-2.6 627) CBC W/PLT COUNT & AUTO [id number] 06:34:00 Test Item Value Reference Range Interpretation [...] PERCENT (BEAKER) (test code = 2801) POCT-GLUCOSE [id number] 22:23:00 Test Item Value Reference Range Interpretation Comments POC-GLUCOSE METER 237 mg/dL 70-110 H TESTED AT [place] [address] ([facility] (test code = [facility] 1538) [address] POCT-GLUCOSE [id number] 20:39:00 Test Item Value Reference Range Interpretation Comments POC-GLUCOSE METER 298 mg/dL 70-110 H TESTED AT [place] [address] ([facility] (test code = [facility] 1538) [address] POCT-GLUCOSE [id number] 17:49:00 Test Item Value Reference Range Interpretation Comments POC-GLUCOSE METER 255 mg/dL 70-110 H TESTED AT [place] [address] ([facility] (test code = [facility] 1538) [address] POCT-GLUCOSE [id number] 13:35:00 Test Item Value Reference Range Interpretation Comments POC-GLUCOSE METER 190 mg/dL 70-110 H TESTED AT [place] [address] ([facility] (test code = [facility] 1538) [address] POCT-GLUCOSE [id number] 12:31:00 Test Item Value Reference Range Interpretation Comments POC-GLUCOSE METER 204 mg/dL 70-110 H TESTED AT [facility] 6720 (BEAKER) (test code = CAROLA Roberson [facility] 1538) [address] POCT-GLUCOSE [id number] 11:38:00 Test Item Value Reference Range Interpretation Comments POC-GLUCOSE METER 165 mg/dL 70-110 H TESTED AT [facility] 6720 (BEAKER) (test code = [facility] Karol [facility] 1538) [address] POCT-GLUCOSE [id number] 10:35:00 Test Item Value Reference Range Interpretation Comments POC-GLUCOSE METER 231 mg/dL 70-110 H TESTED AT [facility] 6720 (BEAKER) (test code = [facility] Karol [facility] 1538) [address] BASIC METABOLIC [id number] 09:52:00 Test Item Value Reference Range Interpretation [...] S NOT APPLICABLE FOR DIALYSIS PATIEN TS. [id number] 09:52:00 Test Item Value Reference Range Interpretation Comments PHOSPHORUS (BEAKER) (test code = 2.0 mg/dL 2.3-4.7 L 604) [id number] 09:52:00 Test Item Value Reference Range Interpretation Comments MAGNESIUM (BEAKER) (test code = 2.2 mg/dL 1.6-2.6 627) POCT-GLUCOSE [id number] 09:28:00 Test Item Value Reference Range Interpretation Comments POC-GLUCOSE METER 213 mg/dL 70-110 H TESTED AT [facility] 6720 ([facility] (test code = [place] 1538) [address] RAD, ABDOMEN/KUB, 1 VIEW [id number] 09:12:00Reason for exam:->recurrent vomitingShould this be performed [...] MDReport Verified Date/Time: 10/16/2018 09:12:50 Reading Location: [facility] Radiology Reading Room POCT-GLUCOSE [id number] 08:41:00 Test Item Value Reference Range Interpretation Comments POC-GLUCOSE METER 206 mg/dL 70-110 H TESTED AT [facility] 67 ([facility] (test code = CAROLA Roberson [facility] 1538) [address] POCT-GLUCOSE [id number] 07:46:00 Test Item Value Reference Range Interpretation Comments POC-GLUCOSE METER 203 mg/dL 70-110 H TESTED AT [facility] 67 ([facility] (test code = CAROLA Roberson [facility] 1538) [address] [id number] 07:14:00 Test Item Value Reference Range Interpretation Comments MAGNESIUM (BEAKER) 2.2 mg/dL 1.6-2.6 Specimen slightly (test code = 627) hemolyzed [id number] 07:14:00 Test Item Value Reference Range Interpretation Comments PHOSPHORUS (BEAKER) 2.4 mg/dL 2.3-4.7 Specimen slightly (test code = 604) hemolyzed BASIC METABOLIC [id number] 07:14:00 Test Item Value Reference Range Interpretation [...] APPLICABLE FOR DIALYSIS PATIEN TS. LACTIC ACID, [id number] 06:58:00 Test Item Value Reference Range Interpretation Comments LACTATE BLOOD ARTERIAL (2) 1.0 mmol/L 0.5-2.2 (BEAKER) (test code = 2874) CBC W/PLT COUNT & AUTO [id number] 06:47:00 Test Item Value Reference Range Interpretation [...] (BEAKER) (test code = 2801) HEMOGLOBIN AND [id number] 06:42:00 Test Item Value Reference Range Interpretation Comments HEMOGLOBIN (BEAKER) (test code = 11.2 GM/DL 13.7-17.5 L 410) HEMATOCRIT (BEAKER) (test code = 33.1 % 40.1-51.0 L 411) POCT-GLUCOSE [id number] 06:22:00 Test Item Value Reference Range Interpretation Comments POC-GLUCOSE METER 193 mg/dL 70-110 H TESTED AT [facility] 67[address] [facility] (test code = [place] 1538) [address] POCT-GLUCOSE [id number] 05:31:00 Test Item Value Reference Range Interpretation Comments POC-GLUCOSE METER 185 mg/dL 70-110 H TESTED AT [facility] 6720 [facility] (test code = [place] 1538) [address] POCT-GLUCOSE [id number] 04:02:00 Test Item Value Reference Range Interpretation Comments POC-GLUCOSE METER 191 mg/dL 70-110 H TESTED AT [facility] 6720 ([facility] (test code = [facility] Karol [facility] 1538) [address] POCT-GLUCOSE [id number] 03:08:00 Test Item Value Reference Range Interpretation Comments POC-GLUCOSE METER 170 mg/dL 70-110 H TESTED AT [place] [address] ([facility] (test code = [facility] 1538) [address] POCT-GLUCOSE [id number] 02:24:00 Test Item Value Reference Range Interpretation Comments POC-GLUCOSE METER 155 mg/dL 70-110 H TESTED AT [place] [address] ([facility] (test code = [facility] 1538) [address] POCT-GLUCOSE [id number] 01:43:00 Test Item Value Reference Range Interpretation Comments POC-GLUCOSE METER 158 mg/dL 70-110 H TESTED AT [place] [address] ([facility] (test code = [facility] 1538) [address] BASIC METABOLIC [id number] 00:59:00 Test Item Value Reference Range Interpretation [...] S NOT APPLICABLE FOR DIALYSIS PATIEN TS. [id number] 00:58:00 Test Item Value Reference Range Interpretation Comments MAGNESIUM (BEAKER) 2.4 mg/dL 1.6-2.6 Specimen slightly (test code = 627) hemolyzed [id number] 00:58:00 Test Item Value Reference Range Interpretation Comments PHOSPHORUS (BEAKER) 1.6 mg/dL 2.3-4.7 L Specimen slightly (test code = 604) hemolyzed HEMOGLOBIN AND [id number] 00:31:00 Test Item Value Reference Range Interpretation Comments HEMOGLOBIN (BEAKER) (test code = 11.9 GM/DL 13.7-17.5 L 410) HEMATOCRIT (BEAKER) (test code = 34.5 % 40.1-51.0 L 411) POCT-GLUCOSE [id number] 00:30:00 Test Item Value Reference Range Interpretation Comments POC-GLUCOSE METER 188 mg/dL 70-110 H TESTED AT [facility] 6720 (BEAKER) (test code = [place] 1538) [address] POCT-GLUCOSE [id number] 23:07:00 Test Item Value Reference Range Interpretation Comments POC-GLUCOSE METER 191 mg/dL 70-110 H TESTED AT [facility] 6720 (BEAKER) (test code = CAROLA Roberson [facility] 1538) [address] POCT-GLUCOSE [id number] 22:03:00 Test Item Value Reference Range Interpretation Comments POC-GLUCOSE METER 205 mg/dL 70-110 H TESTED AT [facility] 67 (BEAKER) (test code = CAROLA Roberson [facility] 1538) [address] BASIC METABOLIC [id number] 21:06:00 Test Item Value Reference Range Interpretation [...] APPLICABLE FOR DIALYSIS PATIEN TS. VANCOMYCIN LEVEL, [id number] 21:04:00 Test Item Value Reference Range Interpretation Comments VANCOMYCIN TROUGH (BEAKER) (test 5.8 ug/mL 10.0-20.0 L code = 522) If level is >20, hold scheduled vancomycin dose and contact PharmD/MD. Thank youPOCT-GLUCOSE [id number] 21:00:00 Test Item Value Reference Range Interpretation Comments POC-GLUCOSE METER 202 mg/dL 70-110 H TESTED AT [place] [address] ([facility] (test code = [facility] [employer] [facility] 1538) [address] POCT-GLUCOSE [id number] 20:08:00 Test Item Value Reference Range Interpretation Comments POC-GLUCOSE METER 180 mg/dL 70-110 H TESTED AT [place] [address] ([facility] (test code = [facility] [employer] [facility] 1538) [address] POCT-GLUCOSE [id number] 18:39:00 Test Item Value Reference Range Interpretation Comments POC-GLUCOSE METER 175 mg/dL 70-110 H TESTED AT [place] [address] ([facility] (test code = [facility] [employer] [facility] 1538) [address]69 POCT-GLUCOSE [id number] 17:22:00 Test Item Value Reference Range Interpretation Comments POC-GLUCOSE METER 209 mg/dL 70-110 H TEST[facility] AT [place] [address] [facility] (test code = [facility] [employer] [facility] 1538) 18130 URINALYSIS W/ REFLEX URINE [id number] 16:58:00 Test Item Value Reference Range Interpretation [...] = Rare 1574) SOURCE(BEAKER) (test code = 6965) HEMOGLOBIN AND [id number] 16:36:00 Test Item Value Reference Range Interpretation Comments HEMOGLOBIN (BEAKER) (test code = 13.0 GM/DL 13.7-17.5 L 410) HEMATOCRIT (BEAKER) (test code = 37.3 % 40.1-51.0 L 411) POCT-GLUCOSE [id number] 16:20:00 Test Item Value Reference Range Interpretation Comments POC-GLUCOSE METER 217 mg/dL 70-110 H TESTED AT [facility] 6720 (BEAKER) (test code = CAROLA Roberson [facility] 1538) [address] BASIC METABOLIC [id number] 16:19:00 Test Item Value Reference Range Interpretation [...] S NOT APPLICABLE FOR DIALYSIS PATIEN TS. [id number] 16:15:00 Test Item Value Reference Range Interpretation Comments PHOSPHORUS (BEAKER) (test code = 3.4 mg/dL 2.3-4.7 604) [id number] 16:15:00 Test Item Value Reference Range Interpretation Comments MAGNESIUM (BEAKER) (test code = 2.1 mg/dL 1.6-2.6 627) POCT-GLUCOSE [id number] 15:13:00 Test Item Value Reference Range Interpretation Comments POC-GLUCOSE METER 205 mg/dL 70-110 H TESTED AT [place] [address] ([facility] (test code = [facility] 1538) 93647 POCT-GLUCOSE [id number] 14:17:00 Test Item Value Reference Range Interpretation Comments POC-GLUCOSE METER 154 mg/dL 70-110 H TESTED AT [place] [address] ([facility] (test code = [facility] 1538) [address]79[address] POCT-GLUCOSE [id number] 13:34:00 Test Item Value Reference Range Interpretation Comments POC-GLUCOSE METER 144 mg/dL 70-110 H TESTED AT [place] [address] (BEAKER) (test code = [facility] 1538) 48100 BASIC METABOLIC [id number] 12:52:00 Test Item Value Reference Range Interpretation [...] S NOT APPLICABLE FOR DIALYSIS PATIEN TS. [id number] 12:45:00 Test Item Value Reference Range Interpretation Comments PHOSPHORUS (BEAKER) (test code = 1.8 mg/dL 2.3-4.7 L 604) [id number] 12:45:00 Test Item Value Reference Range Interpretation Comments MAGNESIUM (BEAKER) (test code = 2.4 mg/dL 1.6-2.6 627) BLOOD GAS, [id number] 12:26:00 Test Item Value Reference Range Interpretation [...] code = 1819) 21.0 % HEMOGLOBIN AND [id number] 12:24:00 Test Item Value Reference Range Interpretation Comments HEMOGLOBIN (BEAKER) (test code = 11.9 GM/DL 13.7-17.5 L 410) HEMATOCRIT (BEAKER) (test code = 34.2 % 40.1-51.0 L 411) POCT-GLUCOSE [id number] 12:23:00 Test Item Value Reference Range Interpretation Comments POC-GLUCOSE METER 170 mg/dL 70-110 H TESTED AT [facility] 6720 (BEAKER) (test code = [place] 1538) [address] POCT-GLUCOSE [id number] 10:54:00 Test Item Value Reference Range Interpretation Comments POC-GLUCOSE METER 182 mg/dL 70-110 H TESTED AT [facility] 6720 [facility] (test code = [place] 1538) [address] BASIC METABOLIC [id number] 09:55:00 Test Item Value Reference Range Interpretation [...] NOT APPLICABLE FOR DIALYSIS PATIEN TS. POCT-GLUCOSE [id number] 09:44:00 Test Item Value Reference Range Interpretation Comments POC-GLUCOSE METER 217 mg/dL 70-110 H TESTED AT [facility] 6720 (BEAKER) (test code = CAROLA Roberson [place] 1538) [address] BLOOD GAS, [id number] 08:28:00 Test Item Value Reference Range Interpretation [...] (test code = 1819) 21.0 % POCT-GLUCOSE [id number] 08:24:00 Test Item Value Reference Range Interpretation Comments POC-GLUCOSE METER 207 mg/dL 70-110 H TESTED AT [facility] 6720 (BEAKER) (test code = [facility] [place] 1538) [address] POCT-GLUCOSE [id number] 06:39:00 Test Item Value Reference Range Interpretation Comments POC-GLUCOSE METER 203 mg/dL 70-110 H TESTED AT [facility] 6720 (BEAKER) (test code = [facility] [place] 1538) [address] BASIC METABOLIC [id number] 06:37:00 Test Item Value Reference Range Interpretation [...] NOT APPLICABLE FOR DIALYSIS PATIEN TS. POCT-GLUCOSE [id number] 05:26:00 Test Item Value Reference Range Interpretation Comments POC-GLUCOSE METER 253 mg/dL 70-110 H TESTED AT [facility] 6720 (BEAKER) (test code = [facility] [place] 1538) [address] BASIC METABOLIC [id number] 05:07:00 Test Item Value Reference Range Interpretation [...] S NOT APPLICABLE FOR DIALYSIS PATIEN TS. [id number] 05:07:00 Test Item Value Reference Range Interpretation Comments MAGNESIUM (BEAKER) (test code = 2.0 mg/dL 1.6-2.6 627) [id number] 05:07:00 Test Item Value Reference Range Interpretation Comments PHOSPHORUS (BEAKER) (test code = 2.8 mg/dL 2.3-4.7 604) BLOOD GAS, [id number] 05:01:00 Test Item Value Reference Range Interpretation [...] code = 1819) 21.0 % LACTIC ACID, [id number] 04:58:00 Test Item Value Reference Range Interpretation Comments LACTATE BLOOD ARTERIAL (2) 0.6 mmol/L 0.5-2.2 (BEAKER) (test code = 2874) CBC W/PLT COUNT & AUTO [id number] 04:57:00 Test Item Value Reference Range Interpretation [...] (test code = 416) BASOPHILS ABSOLUTE COUNT (AKER) 0.03 K/ L 0.01-0.08 (test code = 417) IMMATURE GRANULOCYTES-RELATIVE 1 % 0-1 PERCENT ([facility] (test code = 2801) POCT-GLUCOSE [id number] 04:20:00 Test Item Value Reference Range Interpretation Comments POC-GLUCOSE METER 220 mg/dL 70-110 H TESTED AT [place] [address] ([facility] (test code = [facility] 1538) 85238 POCT-GLUCOSE [id number] 03:44:00 Test Item Value Reference Range Interpretation Comments POC-GLUCOSE METER 243 mg/dL 70-110 H TESTED AT [place] [address] ([facility] (test code = [facility] 1538) [address]83 POCT-GLUCOSE [id number] 03:06:00 Test Item Value Reference Range Interpretation Comments POC-GLUCOSE METER 196 mg/dL 70-110 H TESTED AT [place] [address] ([facility] (test code = [facility] 1538) [address]11 TROPONIN [id number] 03:00:00 Test Item Value Reference Range Interpretation Comments TROPONIN I ([facility] (test code = 0.02 ng/mL 0.00-0.03 397) [...] acute neurological disease, and persistent tachyarrhythmia.BASIC METABOLIC [id number] 02:57:00 Test Item Value Reference Range Interpretation [...] NOT APPLICABLE FOR DIALYSIS PATIEN TS. POCT-GLUCOSE [id number] 01:21:00 Test Item Value Reference Range Interpretation Comments POC-GLUCOSE METER 195 mg/dL 70-110 H TESTED AT [facility] ([facility] (test code = [place] 1538) [id number] TROPONIN [id number] 00:47:00 Test Item Value Reference Range Interpretation [...] failure, acidosis, acute neurological disease, and persistent tachyarrhythmia.[id number] 00:44:00 Test Item Value Reference Range Interpretation Comments PHOSPHORUS (BEAKER) (test code = 1.4 mg/dL 2.3-4.7 LL 604) BLOOD GAS, [id number] 00:41:00 Test Item Value Reference Range Interpretation [...] code = 1819) 21.0 % BASIC METABOLIC [id number] 00:40:00 Test Item Value Reference Range Interpretation [...] S NOT APPLICABLE FOR DIALYSIS PATIEN TS. [id number] 00:40:00 Test Item Value Reference Range Interpretation Comments MAGNESIUM (BEAKER) (test code = 2.1 mg/dL 1.6-2.6 627) HEMOGLOBIN AND [id number] 00:21:00 Test Item Value Reference Range Interpretation Comments HEMOGLOBIN (BEAKER) (test code = 12.3 GM/DL 13.7-17.5 L 410) HEMATOCRIT (BEAKER) (test code = 34.9 % 40.1-51.0 L 411) POCT-GLUCOSE [id number] 00:09:00 Test Item Value Reference Range Interpretation Comments POC-GLUCOSE METER 234 mg/dL 70-110 H TESTED AT [facility] [address] (BEAKER) (test code = [place] 1288) [address] STREP PNEUMONIAE [id number] 00:07:00 Test Item Value Reference Range Interpretation [...] detection limit of the test. LEGIONELLA ANTIGEN, [id number] 00:07:00 Test Item Value Reference Range Interpretation Comments L. PNEUMOPHILA Negative - see Negative fo r L. SEROGP 1 UR AG comment pneumophila (BEJUSTIN) (test code serogrou p 1 antigen, = 1156) suggesting no r ecent or current infe ction with this serog roup. Legionellosis c annot be ruled out si nce other serogroup s and species may cau se disease. POCT-GLUCOSE [id number] 23:15:00 Test Item Value Reference Range Interpretation Comments POC-GLUCOSE METER 247 mg/dL 70-110 H TESTED AT [facility] 6720 ([facility] (test code = [place] 1538) [address] BASIC METABOLIC [id number] 23:09:00 Test Item Value Reference Range Interpretation [...] APPLICABLE FOR DIALYSIS PATIEN TS. BLOOD GAS, [id number] 22:52:00 Test Item Value Reference Range Interpretation [...] (test code = 1819) 21.0 % POCT-GLUCOSE [id number] 22:25:00 Test Item Value Reference Range Interpretation Comments POC-GLUCOSE METER 270 mg/dL 70-110 H TESTED AT [place] [address] (BEAKER) (test code = CAROLA Roberson [facility] 1538) [address] POCT-GLUCOSE [id number] 21:28:00 Test Item Value Reference Range Interpretation Comments POC-GLUCOSE METER 312 mg/dL 70-110 H TESTED AT [place] [address] [facility] ([facility] 1538) [address] LACTIC ACID, [id number] 20:58:00 Test Item Value Reference Range Interpretation Comments LACTATE BLOOD ARTERIAL (2) 1.7 mmol/L 0.5-2.2 (BEAKER) (test code = 2874) BASIC METABOLIC [id number] 20:51:00 Test Item Value Reference Range Interpretation [...] 358) GLUCOSE RANDOM 389 mg/dL 70-105 H ([facility] (test code = 652) CALCIUM ([facility] 8.2 mg/dL 8.4-10.2 L (test code = 697) EGFR ([facility] (test 40 mL/min/1.73 ESTIMA GUNNAR GFR IS code = 1092) sq m NOT ACCURATE CREATININE CLEARANCE IN PREDICTING GLOMERULAR FILTRATION RATE . ESTIMATED GFR I S NOT APPLICABLE FOR DIALYSIS PATIEN TS. POCT-GLUCOSE [id number] 20:37:00 Test Item Value Reference Range Interpretation Comments POC-GLUCOSE METER 334 mg/dL 70-110 H TESTED AT [facility] 67 ([facility] (test code = CAROLA Roberson [facility] 1538) [address] RAD, CHEST, 1 VIEW, NON [id number] 20:13:00Post-intubationReason for exam:- >r/o pnaShould this be performed at the bedside?->YesFINAL REPORT History: "Rule out pneumonia". Comparison: None. Findings: A single view of the chest is submitted. The cardiomediastinal contours are unremarkable. There is no focal consolidation, pneumothorax, large pleural effusion or evidence of overt pulmonary edema. There is no acute bony abnormality. Impression: No acute abnormality. Signed: Annad Vora Verified Da te/Time: 10/14/2018 20:13:51 Reading Location: [address] Reading Room POCT- GLUCOSE [id number] 19:39:00 Test Item Value Reference Range Interpretation Comments POC-GLUCOSE METER 432 mg/dL 70-110 HH TESTED AT [facility] 67 ([facility] (test code = CAROLA Roberson [facility] 1538) [address] HEMOGLOBIN [id number] 19:16:00 Test Item Value Reference Range Interpretation Comments HEMOGLOBIN A1C ([facility] (test code = 10.2 % 4.3-6.1 H 368) [id number] 18:52:00 Test Item Value Reference Range Interpretation Comments PROCALCITONIN ([facility] (test code 5.14 ng/mL <0.05 H = 3036) SEPSIS RISK (ng/mL)Low: 0.05-0.50Intermediate: 0.51-2.00High: >=2.01CBC W/PLT COUNT & AUTO [id number] 18:37:00 Test Item Value Reference Range Interpretation [...] (BEAKER) (test code = 2801) BASIC METABOLIC [id number] 18:29:00 Test Item Value Reference Range Interpretation [...] APPLICABLE FOR DIALYSIS PATIEN TS. HEPATIC FUNCTION [id number] 18:29:00 Test Item Value Reference Range Interpretation [...] = 23 U/L 6-55 347) LACTIC ACID, [id number] 18:24:00 Test Item Value Reference Range Interpretation Comments LACTATE BLOOD ARTERIAL (2) 3.0 mmol/L 0.5-2.2 H (BEAKER) (test code = 2874) BLOOD GAS, [id number] 17:52:00 Test Item Value Reference Range Interpretation [...] 21.0 % CBC W/PLT COUNT & AUTO [id number] 17:50:00 Test Item Value Reference Range Interpretation [...] 3438) Received comment: User comments: Slide comments:POCT-GLUCOSE [id number] 17:49:00 Test Item Value Reference Range Interpretation Comments POC-GLUCOSE METER > mg/dL 70-110 HH OUTSIDE ME ASURING (BEAKER) (test code RANGETES GUNNAR AT [facility] 6720 = 1538) [place] [address] KETONE, [id number] 17:13:00 Test Item Value Reference Range Interpretation Comments KETONES, BLOOD (BEAKER) (test code 5.4 mmol/L <0.4 H = 1103) TSH/FREE T4 IF [id number] 17:10:00 Test Item Value Reference Range Interpretation Comments THYROID STIMULATING HORMONE 0.64 uIU/mL 0.35-4.94 (BEAKER) (test code = 772) BASIC METABOLIC [id number] 16:57:00 Test Item Value Reference Range Interpretation [...] NOT APPLICABLE FOR DIALYSIS PATIEN TS. TROPONIN [id number] 16:56:00 Test Item Value Reference Range Interpretation [...] failure, acidosis, acute neurological disease, and persistent tachyarrhythmia.[id number] 16:50:00 Test Item Value Reference Range Interpretation Comments MAGNESIUM (BEAKER) 2.4 mg/dL 1.6-2.6 Specimen slightly (test code = 627) hemolyzed [id number] 16:50:00 Test Item Value Reference Range Interpretation Comments PHOSPHORUS (BEAKER) 5.6 mg/dL 2.3-4.7 H Specimen slightly (test code = 604) hemolyzed [id number] 16:50:00 Test Item Value Reference Range Interpretation Comments AMYLASE (BEAKER) (test 47 U/L 25-125 Speci men slightly code = 349) hemolyzed [id number] 16:50:00 Test Item Value Reference Range Interpretation Comments LIPASE (BEAKER) (test code = 749) 199 U/L 8-78 H PROTHROMBIN [id number] 16:47:00 Test Item Value Reference Range Interpretation [...] is 2.5-3.5 for patients wiht mechanical heart valves.[id number] 16:47:00 Test Item Value Reference Range Interpretation Comments PARTIAL THROMBOPLASTIN TIME 23.5 seconds 22.5-36.0 (BEAKER) (test code = 760) [id number] 16:47:00 Test Item Value Reference Range Interpretation Comments FIBRINOGEN LEVEL (BEAKER) (test 284 mg/dl 225-434 code = 658) LACTIC ACID, [id number] 16:44:00 Test Item Value Reference Range Interpretation Comments LACTATE BLOOD VENOUS 4.2 mmol/L 0.5-2.2 H Specime n slightly (2) (BEAKER) (test hemolyzed code = 5739) HEMOGLOBIN AND [id number] 16:34:00 Test Item Value Reference Range Interpretation Comments HEMOGLOBIN (BEAKER) (test code = 14.5 GM/DL 13.7-17.5 410) HEMATOCRIT (BEAKER) (test code = 42.9 % 40.1-51.0 411) POTASSIUM-STAT [id number] 16:21:00 Test Item Value Reference Range Interpretation Comments POTASSIUM (BEAKER) (test code = 7.0 meq/L 3.6-5.5 HH 379) GLUCOSE-STAT [id number] 16:21:00 Test Item Value Reference Range Interpretation Comments GLUCOSE RANDOM (BEAKER) (test code 650 mg/dL 70-110 HH = 652) BLOOD GAS, [id number] 16:21:00 Test Item Value Reference Range Interpretation [...] code = 1819) 21.0 % SODIUM NA-STAT [id number] 16:15:00 Test Item Value Reference Range Interpretation Comments SODIUM (BEAKER) (test code = 381) 142 meq/L 135-148 HGB/HCT (H&H) - STAT [id number] 16:15:00 Test Item Value Reference Range Interpretation Comments HEMOGLOBIN (BEAKER) (test code = 14.8 g/dL 13.0-16.8 410) HEMATOCRIT (BEAKER) (test code = 44.0 % 40.0-50.0 411) POCT-GLUCOSE [id number] 15:42:00 Test Item Value Reference Range Interpretation Comments POC-GLUCOSE METER > mg/dL 70-110 HH OUTSIDE WI ASURING ([place]) (test code RANGENot ified YVONNE GARZA/TESTED = 8801) AT [facility] [address] [facility] 7[address] 0
[2023-01-11] MEDS ORDERED: NA CHLORIDE 0.9% 1,000 ML ONE ×2 (08:27→09:04)
[2023-01-11] MEDS ORDERED: ONDANSETRON 4 MG/2 ML VIAL ONE (08:27)
[2023-01-11 08:28] LABS: Absolute Lymphocytes (CBC) 1.5 K/uL (0.7-4.9); Lymphocytes % 21.2 % (15.3-44.8); MCV 84.7 fL (80-100); MPV 7.6 fL (7.6-11.3); Platelets 223 thou/uL (152-406)
[2023-01-11 08:39] LABS: Bilirubin Direct 0.4 mg/dL (0-0.2); Bilirubin Indirect, Calculated 1.4 mg/dL (0.2-0.8); Bilirubin Total 1.8 mg/dL (0.2-1.0); Magnesium 2.3 mg/dL (1.6-2.4); Phosphorus 1.7 mg/dL (2.5-4.9); Protein, Total 7.7 g/dL (6.4-8.2)
[2023-01-11] MEDS ORDERED: INSULIN -REGULAR HUMAN 50 UNIT/0.5 ML ML ONE (09:04)
[2023-01-11] MEDS ORDERED: POTASS/SODIUM PHOSPHATE 1 PKT POWD.PACK ONE (09:18)
--- NOTE | 2023-01-11 09:47 | EDPHYS ---
Physician Documentation [facility] Name: Enio Bradley Age: 32 yrs Sex: Male : 1990 Arrival Date: 01/11/2023 Time: 07:52 Bed 6 Private MD: ED Physician Irene Aguilar HPI: 01/11 08:07 This 32 yrs old Male presents to ER via Ambulatory with complaints of Vomiting, High sb4 Blood Sugar. 08:07 The patient presents to the emergency department with nausea, vomiting. Onset: The sb4 symptoms/episode began/occurred 4 day(s) ago. Possible causes: hyperglycemia. The patient has experienced similar episodes in the past, a few times. The patient has been recently seen by a physician: endocrinolgist. states he cannot get his blood sugar less than 400 over the past week. started experiencing nausea and vomiting 4 days ago. cannot hold anything down. reports a lot of stress in his life recently. states they changed his fast acting insulin about 1 week ago. Historical: - Allergies: 08:00 Clindamycin; ll1 - PMHx: 08:00 ADD/ADHD; Diabetes - IDDM; ll1 - PSHx: 08:00 I\T\D Right Great toe; ll1 - Immunization history:: Adult Immunizations up to date. - Social history:: Smoking status: Patient denies any tobacco usage or history of. ROS: 08:07 Constitutional: Negative for fever, chills, and weight loss, sb4 08:07 Abdomen/GI: Positive for nausea and vomiting, 08:07 Endocrine: Positive for hyperglycemia, 08:07 All other systems are negative, Exam: 08:07 Constitutional: This is a well developed, well nourished patient who is awake, alert, sb4 and in no acute distress. Head/Face: Normocephalic, atraumatic. Eyes: Extra-ocular motions intact. Periorbital areas with no swelling, redness, or edema. Respiratory: Lungs have equal breath sounds bilaterally, clear to auscultation and percussion. No rales, rhonchi or wheezes noted. No increased work of breathing, no retractions or nasal flaring. Abdomen/GI: Soft, non-tender, no distension. Skin: Warm, dry with normal turgor. Normal color with no rashes, no lesions, and no evidence of cellulitis. MS/ Extremity: Pulses equal, no cyanosis. Neurovascular intact. Full, normal range of motion. Neuro: Awake and alert, GCS 15, oriented to person, place, time, and situation. Motor strength 5/5 in all extremities. Sensory grossly intact. 08:07 ENT: Mouth: Oral mucosa: dry, 08:07 Cardiovascular: Rate: tachycardic, Rhythm: regular, Vital Signs: 08:00 BP 135 / 82; Pulse 102; Resp 20; Temp 98; Pulse Ox 99% on R/A; Weight 90.72 kg; Height ll1 5 ft. 11 in. ; Pain 1/10; 10:08 BP 157 / 79; Pulse 97; Resp 16; Pulse Ox 97% ; cp4 08:00 Body Mass Index 27.89 (90.72 kg, 180.34 cm) ll1 08:00 Pain Scale: Adult ll1 MDM: 08:03 Patient medically screened. sb4 08:07 Differential diagnosis: Nonspecific abd pain, gastritis, gastroenteritis, DKA, sb4 hyperglycemia, dehydration. 09:45 Data reviewed: vital signs, nurses notes, lab test result(s), EKG, radiologic studies, sb4 and as a result, I will discharge patient. Consideration of Admission/Observation Escalation of care including admission/observation considered. Test considered but Not performed: CT: CT abdomen pelvis not indicated. no abdominal pain. vomiting has resolved. Care significantly affected by the following chronic conditions: Diabetes. Counseling: I had a detailed discussion with the patient and/or guardian regarding the historical points, exam findings, and any diagnostic results supporting the discharge/admit diagnosis, lab results, radiology results, the need for outpatient follow up, endocrinology, to return to the emergency department if symptoms worsen or persist or if there are any questions or concerns that arise at home. 01/11 08:04 Order name: Basic Metabolic Panel; Complete Time: 08:39 sb4 01/11 08:04 Order name: CBC with Diff; Complete Time: 08:33 sb4 01/11 08:04 Order name: Hepatic Function; Complete Time: 08:39 sb4 01/11 08:04 Order name: Lipase; Complete Time: 08:39 sb4 01/11 08:04 Order name: Magnesium; Complete Time: 08:39 sb4 01/11 08:04 Order name: Phosphorus; Complete Time: 08:39 sb4 01/11 08:16 Order name: Glucose, Ancillary Testing; Complete Time: 08:29 EDMS 01/11 09:38 Order name: Glucose, Ancillary Testing; Complete Time: 09:45 EDMS 01/11 08:04 Order name: EKG; Complete Time: 08:04 sb4 01/11 08:04 Order name: Cardiac monitoring; Complete Time: 08:19 sb4 01/11 08:04 Order name: EKG - Nurse/Tech; Complete Time: 08:19 sb4 01/11 08:04 Order name: IV Saline Lock; Complete Time: 08:19 sb4 01/11 08:04 Order name: NPO; Complete Time: 08:19 sb4 01/11 08:04 Order name: O2 Per Protocol; Complete Time: 08:19 sb4 01/11 08:04 Order name: O2 Sat Monitoring; Complete Time: 08:19 sb4 01/11 08:12 Order name: Accucheck; Complete Time: 08:19 sb4 EC:23 Rate is 95 beats/min. Rhythm is regular, Normal Sinus Rhythm. NH interval is normal at sb4 150 msec. QRS interval is normal at 76 msec. QT interval is normal at 338 msec. No Q waves. T waves are Normal. No ST changes noted. Clinical impression: Normal ECG. Interpreted by me. Reviewed by me. Administered Medications: 08:20 Drug: NS 0.9% IV 1000 ml IV at 1000 ml once Route: IV; Rate: 1000 ml; Site: left 4 antecubital; 10:08 Follow up: IV Status: Completed infusion; IV Intake: 1000ml 4 08:20 Drug: Ondansetron IVP 4 mg IVP once; over 2 minutes Route: IVP; Site: left antecubital; cp4 10:07 Follow up: Response: No adverse reaction cp4 08:55 Drug: Insulin Regular Human IVP 10 units IVP once {Co-Signature: rs5 (Silvano Aguilar cp4 RN).} Route: IVP; Site: left antecubital; 10:06 Follow up: Response: Blood sugar is lowered cp4 08:56 Drug: NS 0.9% IV 1000 ml IV at 1 bolus Per protocol; 1000 mL bolus Route: IV; Rate: 1 cp4 bolus; Site: left antecubital; 10:06 Follow up: Response: No adverse reaction; IV Status: Completed infusion; IV Intake: cp4 1000ml 09:09 Drug: Potassium \T\ Sodium Phosphates PO Packet 280 mg-160 mg-250 mg 1 packets PO once; cp4 mix packet with 75ml water or juice, stir well and administer promptly Route: PO; 10:05 Follow up: Response: No adverse reaction cp4 Disposition Summary: 01/11/23 09:47 Discharge Ordered Notes: Location: Home sb4 Problem: new sb4 Symptoms: have improved sb4 Condition: Stable sb4 Diagnosis - Type 1 diabetes mellitus with hyperglycemia sb4 - Hypophosphatemia sb4 - Nausea with vomiting, unspecified sb4 Followup: sb4 - With: Private Physician - When: As needed - Reason: Recheck today's complaints, Continuance of care, Re-evaluation by your physician Discharge Instructions: - Discharge Summary Sheet sb4 - Nausea and Vomiting, Adult, [id number] sb4 - Hypophosphatemia sb4 Forms: - Medication Reconciliation Form sb4 - Thank You Letter sb4 - Antibiotic Education sb4 - Prescription Opioid Use sb4 - Patient Portal Instructions sb4 - Leadership Thank You Letter sb4 - Work release form rs5 Signatures: Dispatcher [employer] Hernan Salas RN RN ll1 Etelvina Valenzuela PA-C PA-C sb4 Naomy Ochoa cp4 Silvano Aguilar RN rs5
--- NOTE | 2023-01-11 09:47 | ER ---
Nurse's Notes [facility] Name: Enio Bradley Age: 32 yrs Sex: Male : 1990 Arrival Date: 01/11/2023 Time: 07:52 Bed 6 Private MD: Diagnosis: Type 1 diabetes mellitus with hyperglycemia;Hypophosphatemia;Nausea with vomiting, unspecified Presentation: 01/11 08:00 Chief complaint: Patient states: N/V for 1 week. Blood sugar higher than 400's for the ll1 past 3 days. Coronavirus screen: Vaccine status: Patient reports being unvaccinated. Client denies travel out of the [place] in the last 14 days. nausea, vomiting. Ebola Screen: Patient denies travel to an Ebola-affected area in the 21 days before illness onset. Initial Sepsis Screen: Does the patient meet any 2 criteria? HR > 90 bpm. No. Patient's initial sepsis screen is negative. Does the patient have a suspected source of infection? Yes: Acute abdominal pain. Risk Assessment: Do you want to hurt yourself or someone else? Patient reports no desire to harm self or others. Onset of symptoms was January 04, 2023. 08:00 Method Of Arrival: Ambulatory ll1 08:00 Acuity: JAMAL 2 ll1 Triage Assessment: 08:02 General: Appears uncomfortable, ill, Behavior is calm, cooperative, appropriate for ll1 age. General: Reports fatigue for high blood sugar. Pain: Complains of pain in mid chest Pain currently is 1 out of 10 on a pain scale. GI: Reports upper abdominal pain, cramping, nausea, vomiting. Historical: - Allergies: 08:00 Clindamycin; ll1 - PMHx: 08:00 ADD/ADHD; Diabetes - IDDM; ll1 - PSHx: 08:00 I\T\D Right Great toe; ll1 - Immunization history:: Adult Immunizations up to date. - Social history:: Smoking status: Patient denies any tobacco usage or history of. Screenin:20 [facility] ED Fall Risk Assessment (Adult) History of falling in the last 3 months, cp4 including since admission No falls in past 3 months (0 pts) Confusion or Disorientation No (0 pts) Intoxicated or Sedated No (0 pts) Impaired Gait No (0 pts) Mobility Assist Device Used No (0 pt) Altered Elimination No (0 pt) Score/Fall Risk Level 0 - 2 = Low Risk. 08:20 Abuse screen: Denies threats or abuse. Nutritional screening: No deficits noted. cp4 Tuberculosis screening: No symptoms or risk factors identified. Assessment: 08:20 General: Appears in no apparent distress. Behavior is calm, cooperative, appropriate cp4 for age. Pain: Denies pain. Neuro: No deficits noted. Cardiovascular: No deficits noted. Respiratory: No deficits noted. GI: Reports nausea, vomiting, since a week ago. : No deficits noted. EENT: No deficits noted. Derm: No deficits noted. Musculoskeletal: No deficits noted. 08:20 GI: Abdomen is non-distended. cp4 Vital Signs: 08:00 BP 135 / 82; Pulse 102; Resp 20; Temp 98; Pulse Ox 99% on R/A; Weight 90.72 kg; Height ll1 5 ft. 11 in. ; Pain 1/10; 10:08 BP 157 / 79; Pulse 97; Resp 16; Pulse Ox 97% ; cp4 08:00 Body Mass Index 27.89 (90.72 kg, 180.34 cm) ll1 08:00 Pain Scale: Adult ll1 ED Course: 07:55 Patient arrived in ED. im 07:57 Arm band placed on Patient placed in an exam room, on a stretcher. ll1 08:02 Triage completed. ll1 08:03 Etelvina Valenzuela PA-C is PHCP. sb4 08:03 Irene Aguilar is Attending Physician. sb4 08:14 Phosphorus Sent. cp4 08:19 Initial lab(s) drawn, by me, sent to lab. cp4 08:20 Bed in low position. Call light in reach. Side rails up X 1. cp4 08:20 Basic Metabolic Panel Sent. cp4 08:20 CBC with Diff Sent. cp4 08:20 Hepatic Function Sent. cp4 08:20 Lipase Sent. cp4 08:20 Magnesium Sent. cp4 08:20 Inserted saline lock: 20 gauge in left antecubital area, using aseptic technique. Blood cp4 collected. 08:25 Silvina Garcia, RN is Primary Nurse. ko1 10:03 Provided Education on: Type 1 diabetes, nausea, and vomiting.. cp4 10:03 No provider procedures requiring assistance completed. intact, bleeding controlled, No cp4 redness/swelling at site. Administered Medications: 08:20 Drug: NS 0.9% IV 1000 ml IV at 1000 ml once Route: IV; Rate: 1000 ml; Site: left cp4 antecubital; 10:08 Follow up: IV Status: Completed infusion; IV Intake: 1000ml cp4 08:20 Drug: Ondansetron IVP 4 mg IVP once; over 2 minutes Route: IVP; Site: left antecubital; cp4 10:07 Follow up: Response: No adverse reaction cp4 08:55 Drug: Insulin Regular Human IVP 10 units IVP once {Co-Signature: rs5 (Silvano Aguilar cp4 RN).} Route: IVP; Site: left antecubital; 10:06 Follow up: Response: Blood sugar is lowered cp4 08:56 Drug: NS 0.9% IV 1000 ml IV at 1 bolus Per protocol; 1000 mL bolus Route: IV; Rate: 1 cp4 bolus; Site: left antecubital; 10:06 Follow up: Response: No adverse reaction; IV Status: Completed infusion; IV Intake: cp4 1000ml 09:09 Drug: Potassium \T\ Sodium Phosphates PO Packet 280 mg-160 mg-250 mg 1 packets PO once; cp4 mix packet with 75ml water or juice, stir well and administer promptly Route: PO; 10:05 Follow up: Response: No adverse reaction cp4 Medication: 08:20 VIS not applicable for this client. cp4 Intake: 10:06 IV: 1000ml; Total: 1000ml. cp4 10:08 IV: 1000ml; Total: 2000ml. cp4 Outcome: 09:47 Discharge ordered by . sb4 10:03 Discharged to home ambulatory, cp4 10:03 Condition: stable 10:03 Discharge instructions given to patient, Instructed on discharge instructions, follow up and referral plans. Demonstrated understanding of instructions, follow-up care, 10:10 Patient left the ED. cp4 Signatures: Hernan Martinez RN RN ll1 Silvina Garcia RN RN ko1 Etelvina Valenzuela PA-C PAAndressaC sb4 Meredith Gregorio Christina cp4 Silvano Aguilar RN rs5
[2023-01-11 10:32] VITALS: TEMP 98
[2023-01-11 10:33] VITALS: BP 157/79; O2SAT 97
== END 2023-01-11 10:10 | disposition home or self-care (01) ==
LOC: ER 07:52
DX: E10.65 Type 1 diabetes mellitus with hyperglycemia (principal); E83.39 Other disorders of phosphorus metabolism; Z88.3 Allergy status to other anti-infective agents
CPT/HCPCS: 85025; 80048; 36415; 83735; 84100; 82947 ×2; 80076; 83690; J1815; J2405; J7030 ×2

== ENCOUNTER → 2023-04-30 | Emergency (ER) | payer BC, SELFPAY ==
[2023-04-30 01:42] LABS: Hematocrit 35.5 % (39.6-49.0); Lymphocytes % 24.9 % (15.3-44.8); MCV 85.4 fL (80-100); MPV 7.5 fL (7.6-11.3); Platelets 187 thou/uL (152-406); RBC Red Blood Cell Count 4.15 M/uL (4.33-5.43)
[2023-04-30 01:54] LABS: SARS-CoV-2 Antigen Rapid Res Positive (Negative)
[2023-04-30 02:02] LABS: Albumin 3.4 g/dL (3.4-5.0); Bilirubin Total 0.8 mg/dL (0.2-1.0); Potassium 3.7 mEq/L (3.5-5.1); Protein, Total 7.2 g/dL (6.4-8.2)
--- NOTE | 2023-04-30 02:37 | ER ---
Nurse's Notes [facility] [place] Name: Enio Bradley Age: 32 yrs Sex: Male : 1990 Arrival Date: 04/30/2023 Time: 01:00 Bed 5 Private MD: Diagnosis: COVID-19;Hyperglycemia Presentation: 04/30 01:13 Chief complaint: Patient states: I feel like I am getting pneumonia. I have been jb4 coughing so hard for the past few days that I vomit. I am having pain in my throat and chest from the coughing. Coronavirus screen: Client presents with at least one sign or symptom that may indicate coronavirus-19. Standard/surgical mask placed on the client. Provider contacted for isolation considerations. Ebola Screen: No symptoms or risks identified at this time. Initial Sepsis Screen: Does the patient meet any 2 criteria? HR > 90 bpm. Does the patient have a suspected source of infection? No. Patient's initial sepsis screen is negative. Risk Assessment: Do you want to hurt yourself or someone else? Patient reports no desire to harm self or others. Onset of symptoms was April 30, 2023. Transition of care: patient was not received from another setting of care. 01:13 Method Of Arrival: Ambulatory jb4 01:13 Acuity: JAMAL 3 jb4 Historical: - Allergies: 01:15 Clindamycin; jb4 - PMHx: 01:15 ADD/ADHD; Diabetes - IDDM; jb4 - PSHx: 01:15 I\T\D Right Great toe; jb4 - Immunization history:: Adult Immunizations unknown. - Social history:: Smoking status: Patient reports use of chewing tobacco. Patient uses alcohol, occasionally. - Family history:: not pertinent. Screenin:16 [facility] ED Fall Risk Assessment (Adult) History of falling in the last 3 months, km8 including since admission No falls in past 3 months (0 pts) Confusion or Disorientation No (0 pts) Intoxicated or Sedated No (0 pts) Impaired Gait No (0 pts) Mobility Assist Device Used No (0 pt) Altered Elimination No (0 pt) Score/Fall Risk Level 0 - 2 = Low Risk Oriented to surroundings, Maintained a safe environment, Educated pt \T\ family on fall prevention, incl call for assistance when getting out of bed, Assessed \T\ reinforced patient's understanding of fall precautions. Abuse screen: Denies threats or abuse. Denies injuries from another. Nutritional screening: No deficits noted. Tuberculosis screening: No symptoms or risk factors identified. Assessment: 01:16 General: Appears in no apparent distress. comfortable, Behavior is calm, cooperative, km8 appropriate for age. Pain: Complains of pain in chest Pain currently is 7 out of 10 on a pain scale. Neuro: Level of Consciousness is awake, alert, obeys commands, Oriented to person, place, time, situation. Cardiovascular: Reports chest pain, shortness of breath, Capillary refill < 3 seconds Patient's skin is warm and dry. Chest pain is described as mild, quality is pressure, tight is located in anterior. Respiratory: Reports shortness of breath cough that is Airway is patent Respiratory effort is even, unlabored, Respiratory pattern is regular, symmetrical, Breath sounds are clear. GI: Reports vomiting. : No signs and/or symptoms were reported regarding the genitourinary system. EENT: Throat is reddened Reports sore throat. Derm: No signs and/or symptoms reported regarding the dermatologic system. Skin is intact, is healthy with good turgor, Skin is dry, Skin is pink, warm \T\ dry. normal, Skin temperature is warm. Musculoskeletal: No signs and/or symptoms reported regarding the musculoskeletal system. Range of motion: intact in all extremities. 02:11 Reassessment: Patient appears in no apparent distress at this time. No changes from km8 previously documented assessment. Patient and/or family updated on plan of care and expected duration. Pain level reassessed. Patient is alert, oriented x 3, equal unlabored respirations, skin warm/dry/pink. 03:00 Reassessment: Pt not discharged at this time due to receiving IV fluids. nw1 Vital Signs: 01:13 BP 130 / 84; Pulse 108; Resp 16; Temp 97.7(TE); Pulse Ox 99% on R/A; Weight 86.18 kg jb4 (R); Height 5 ft. 10 in. (R); 02:00 BP 131 / 84; Pulse 100; Resp 16; Pulse Ox 98% on R/A; km8 03:00 BP 155 / 94; Pulse 101; Resp 16; Pulse Ox 100% on R/A; km8 01:13 Body Mass Index 27.26 (86.18 kg, 177.8 cm) jb4 Keysha Coma Score: 01:16 Eye Response: spontaneous(4). Motor Response: obeys commands(6). Verbal Response: km8 oriented(5). Total: 15. ED Course: 01:07 Patient arrived in ED. gm2 01:08 Jeffry Capone MD is Attending Physician. rt 01:15 Triage completed. jb4 01:15 Arm band placed on right wrist. jb4 01:16 Patient has correct armband on for positive identification. Bed in low position. Call km8 light in reach. Side rails up X 1. Pulse ox on. NIBP on. 01:16 No provider procedures requiring assistance completed. Patient maintains SpO2 km8 saturation greater than 95% on room air. 01:35 Initial lab(s) drawn, by me, sent to lab. Missed attempt(s): 20 gauge in right km8 antecubital area. Bleeding controlled, band aid applied, catheter tip intact. 01:35 SARS RAPID Sent. km8 01:35 Influenza Screen (a \T\ B) Sent. km8 01:35 CMP Sent. km8 01:35 CBC with Diff Sent. km8 02:03 Chest Single View XRAY In Process Unspecified. EDMS 02:45 Inserted saline lock: 20 gauge in left hand, using aseptic technique. nw1 03:00 Provided Education on: POC. nw1 03:25 IV discontinued, intact, bleeding controlled, No redness/swelling at site. Pressure nw1 dressing applied. Administered Medications: 02:45 Drug: NS 0.9% IV 1000 ml IV at 1 bolus Per protocol; 1000 mL bolus Route: IV; Rate: 1 nw1 bolus; Site: left hand; Medication: 01:16 VIS not applicable for this client. km8 Outcome: 02:36 Discharge ordered by . rt 03:25 Discharged to home ambulatory, nw1 03:25 Condition: stable 03:25 Discharge instructions given to patient, Instructed on discharge instructions, follow up and referral plans. medication usage, Demonstrated understanding of instructions, follow-up care, medications, Prescriptions given X 1, 03:26 Patient left the ED. nw1 Signatures: Dispatcher [employer] EDMS Jermaine Wolf RN RN jb4 Jeffry Capone MD MD rt Luz Tuttle 2 Imani Marx RN RN km8 Loretta Hess RN RN nw1 Corrections: (The following items were deleted from the chart) 03:26 01:35 BETA HYDROXYBUTYRATE+C.LAB.BRZ drawn and sent. anselmo nw1
--- NOTE | 2023-04-30 02:37 | EDPHYS ---
Physician Documentation [facility] Name: Enio Bradley Age: 32 yrs Sex: Male : 1990 Arrival Date: 04/30/2023 Time: 01:00 Bed 5 Private MD: ED Physician Jeffry Capone HPI: 04/30 02:01 This 32 yrs old Male presents to ER via Ambulatory with complaints of Cough, Sore rt Throat, Chest Tightness, Chest Congestion. 02:01 Patient presents to the ED with several days of cough, congestion, occasional dyspnea rt after having episodes of coughing. Denies chest pain when he is not coughing. He states he is concerned he is getting a pneumonia. He has been compliant with his insulin, states his blood sugars have been high nonetheless. He denies other acute complaints at this time, symptoms are moderate in severity, no other aggravating or alleviating factors.. Historical: - Allergies: 01:15 Clindamycin; jb4 - PMHx: 01:15 ADD/ADHD; Diabetes - IDDM; jb4 - PSHx: 01:15 I\T\D Right Great toe; jb4 - Immunization history:: Adult Immunizations unknown. - Social history:: Smoking status: Patient reports use of chewing tobacco. Patient uses alcohol, occasionally. - Family history:: not pertinent. ROS: 02:01 Constitutional: Negative for fever, chills, and weight loss, Cardiovascular: Negative rt for chest pain, palpitations, and edema, Abdomen/GI: Negative for abdominal pain, nausea, vomiting, diarrhea, and constipation, MS/Extremity: Negative for injury and deformity, Skin: Negative for injury, rash, and discoloration, Neuro: Negative for headache, weakness, numbness, tingling, and seizure, Psych: Negative for depression, anxiety, suicide ideation, homicidal ideation, and hallucinations, 02:01 Respiratory: Positive for cough, shortness of breath, Exam: 02:01 Constitutional: This is a well developed, well nourished patient who is awake, alert, rt and in no acute distress. Head/Face: Normocephalic, atraumatic. Chest/axilla: Normal chest wall appearance and motion. Nontender with no deformity. No lesions are appreciated. Cardiovascular: Regular rate and rhythm with a normal S1 and S2. No gallops, murmurs, or rubs. Normal PMI, no JVD. No pulse deficits. Respiratory: Lungs have equal breath sounds bilaterally, clear to auscultation and percussion. No rales, rhonchi or wheezes noted. No increased work of breathing, no retractions or nasal flaring. Abdomen/GI: Soft, non-tender, with normal bowel sounds. No distension or tympany. No guarding or rebound. No evidence of tenderness throughout. Skin: Warm, dry with normal turgor. Normal color with no rashes, no lesions, and no evidence of cellulitis. MS/ Extremity: Pulses equal, no cyanosis. Neurovascular intact. Full, normal range of motion. Neuro: Awake and alert, GCS 15, oriented to person, place, time, and situation. Cranial nerves II-XII grossly intact. Motor strength 5/5 in all extremities. Sensory grossly intact. Cerebellar exam normal. Normal gait. Psych: Awake, alert, with orientation to person, place and time. Behavior, mood, and affect are within normal limits. Vital Signs: 01:13 BP 130 / 84; Pulse 108; Resp 16; Temp 97.7(TE); Pulse Ox 99% on R/A; Weight 86.18 kg jb4 (R); Height 5 ft. 10 in. (R); 02:00 BP 131 / 84; Pulse 100; Resp 16; Pulse Ox 98% on R/A; km8 03:00 BP 155 / 94; Pulse 101; Resp 16; Pulse Ox 100% on R/A; km8 01:13 Body Mass Index 27.26 (86.18 kg, 177.8 cm) jb4 Keysha Coma Score: 01:16 Eye Response: spontaneous(4). Motor Response: obeys commands(6). Verbal Response: km8 oriented(5). Total: 15. MDM: 01:19 Patient medically screened. rt 02:38 Differential Diagnosis: Other Pneumonia, flu, COVID, DKA. Data reviewed: vital signs, rt nurses notes, lab test result(s), radiologic studies. Consideration of Admission/Observation Escalation of care including admission/observation considered. Patient with baseline renal dysfunction, mildly elevated creatinine above baseline, will treat with IV fluids, Doppler the patient reports admission for MELANIE at this time, patient struck to keep with hydration, closely follow-up with primary care as an outpatient for further recheck of renal function. He does not have DKA, vital signs are stable, is stable for outpatient care, return precautions discussed.. I considered the following discharge prescriptions or medication management in the emergency department Medications were administered in the Emergency Department. See MAR. Independent interpretation of the following test(s) in the Emergency Department X-Ray: My interpretation is No pneumonia seen on interpretation of x-ray images. Test considered but Not performed: CT: Low suspicion for PE, CT angiogram not indicated. Care significantly affected by the following chronic conditions: Diabetes. Counseling: I had a detailed discussion with the patient and/or guardian regarding the historical points, exam findings, and any diagnostic results supporting the discharge/admit diagnosis, lab results, radiology results, the need for outpatient follow up, to return to the emergency department if symptoms worsen or persist or if there are any questions or concerns that arise at home. Response to treatment: the patient's symptoms have markedly improved after treatment. 04/30 01:24 Order name: CBC with Diff; Complete Time: 02:00 rt 04/30 01:24 Order name: CMP; Complete Time: 02:20 rt 04/30 01:24 Order name: Influenza Screen (a \T\ B); Complete Time: 02:00 rt 04/30 01:24 Order name: SARS RAPID; Complete Time: 02:00 rt 04/30 01:24 Order name: Chest Single View XRAY rt Administered Medications: 02:45 Drug: NS 0.9% IV 1000 ml IV at 1 bolus Per protocol; 1000 mL bolus Route: IV; Rate: 1 nw1 bolus; Site: left hand; Disposition Summary: 04/30/23 02:36 Discharge Ordered Notes: Location: Home rt Problem: new rt Symptoms: have improved rt Condition: Stable rt Diagnosis - COVID-19 rt - Hyperglycemia rt Followup: rt - With: Private Physician - When: 2 - 3 days - Reason: Discharge Instructions: - Discharge Summary Sheet rt - Hyperglycemia rt - COVID-19 rt Forms: - Medication Reconciliation Form rt - Thank You Letter rt - Antibiotic Education rt - Prescription Opioid Use rt - Patient Portal Instructions rt - Leadership Thank You Letter rt Prescriptions: - albuterol sulfate 90 mcg/actuation Inhalation HFA Aerosol Inhaler - inhale 3 Inhaler INHALATION route every 3 hours as needed for cough, shortness rt of breath; 2 Each; Refills: 0, Product Selection Permitted Signatures: Dispatcher [employer] Jermaine Weller, RN RN jb4 Jeffry Capone MD MD rt Loretta Hess RN RN nw1 Corrections: (The following items were deleted from the chart) 03:26 01:24 BETA HYDROXYBUTYRATE+C.LAB.BRZ ordered. rt nw1
[2023-04-30 06:26] VITALS: TEMP 97.7
[2023-04-30 06:41] VITALS: BP 155/94; O2SAT 100
--- NOTE | 2023-05-01 07:37 | RAD REPORT ---
EXAM DESCRIPTION: RAD - Chest Single View - 04/30/2023 2:01 am CLINICAL HISTORY: COUGH COMPARISON: None TECHNIQUE: Single AP view of the chest. FINDINGS: Lung volumes adequate. Cardiac silhouette is normal in size. No pneumothorax. No large pleural effusion. No focal consolidation. No acute bony finding. IMPRESSION: No evidence of acute cardiopulmonary disease. Electronically signed by: Travis Moss MD 04/30/2023 02:26 AM BRANCH OFFICE ADMINISTRATOR Due to temporary technical issues with the PACS/Fluency reporting system, reports are being signed by the in house radiologist without review as a courtesy to ensure prompt reporting. The interpreting r adiologist is fully responsible for the content of the report.
== END ==
LOC: ER 01:00
DX: U07.1 COVID-19 (principal); E11.65 Type 2 diabetes mellitus with hyperglycemia
CPT/HCPCS: 36415; 71045; 80053; 85025; 87804; 87811; 99285

== ENCOUNTER 2023-07-31 20:26 | Emergency (ER) | payer OTHER, SELFPAY ==
--- NOTE | 2023-07-31 21:39 | RAD REPORT ---
EXAM DESCRIPTION: RAD - Foot Right 3 View - 07/31/2023 9:32 pm CLINICAL HISTORY: PAIN COMPARISON: <Comparisons> FINDINGS: Erosive changes with mild sclerosis seen interphalangeal joint of the great toe, likely ch ronic. Moderate soft tissue swelling is present. No fracture or dislocation seen.
[2023-07-31] MEDS ORDERED: LIDOCAINE 1% 20 ML MDV ONE (23:33)
[2023-08-01 00:05] LABS: Absolute Monocytes 0.5 K/uL (0.1-1.3); Absolute Neutrophil 3.2 K/uL (1.8-8.0); Basophils % 0.7 % (0-1.3); Eosinophils % 0.7 % (0-4.4); Hemoglobin 12.4 g/dL (13.6-17.9); Lymphocytes % 35.3 % (15.3-44.8); MCH 30.6 pg (27.0-35.0); MCHC 35.4 g/dL (32.0-36.0); MCV 86.4 fL (80-100); MPV 7.6 fL (7.6-11.3); Monocytes % 8.3 % (3.3-12.3); Platelets 224 thou/uL (152-406); RBC Red Blood Cell Count 4.05 M/uL (4.33-5.43); Red Cell Distribution Width 12.3 % (12.1-15.2)
[2023-08-01] MEDS ORDERED: SMZ./TMP. 800/160 MG TABLET ONE (00:12)
[2023-08-01] MEDS ORDERED: LIDOCAINE 1% MPF 5 ML VIAL ONE (00:12)
[2023-08-01] MEDS ORDERED: CEFAZOLIN SODIUM 1 GM/VIAL ONE (00:12)
[2023-08-01] MEDS ORDERED: CEPHALEXIN 250 MG CAP ONE (00:12)
[2023-08-01 00:28] LABS: Albumin 3.4 g/dL (3.4-5.0); Albumin/Globulin Ratio 0.9 (1.1-1.8); Anion Gap 8.2 mEq/L (5.0-15.0); Globulin 3.6 g/dL (2.3-3.5); Potassium 4.2 mEq/L (3.5-5.1)
--- NOTE | 2023-08-01 00:34 | ER ---
Nurse's Notes [facility] [place] Name: Enio Bradley Age: 33 yrs Sex: Male : 1990 Arrival Date: 07/31/2023 Time: 20:26 Bed 16 Private MD: Diagnosis: Great toe subungual hematoma,, right second toe subungual hematoma. Right third toe subungual hematoma, great toe contusion, right second toe contusion, right third toe contusion, hyperglycemia Presentation: 07/30 20:59 Chief complaint: Patient states: "I'm a diabetic and I noticed a few days ago that the as6 tops of my toes are turning black on my right foot". Coronavirus screen: At this time, the client does not indicate any symptoms associated with coronavirus-19. Ebola Screen: No symptoms or risks identified at this time. Initial Sepsis Screen: Does the patient meet any 2 criteria? No. Patient's initial sepsis screen is negative. Does the patient have a suspected source of infection? No. Patient's initial sepsis screen is negative. Risk Assessment: Do you want to hurt yourself or someone else? Patient reports no desire to harm self or others. Onset of symptoms was July 28, 2023. 20:59 Method Of Arrival: Ambulatory as6 20:59 Acuity: JAMAL 3 as6 Historical: - Allergies: 20:59 Clindamycin; as6 - PMHx: 20:59 Diabetes - IDDM; ADD/ADHD; as6 - PSHx: 20:59 I\\T\\D Right Great toe; as6 - Immunization history:: Adult Immunizations up to date. - Infectious Disease History:: Denies. - Social history:: Smoking status: Patient denies any tobacco usage or history of. - Family history:: not pertinent. Screenin/09 00:38 [facility] ED Fall Risk Assessment (Adult) History of falling in the last 3 months, vc1 including since admission No falls in past 3 months (0 pts) Confusion or Disorientation No (0 pts) Intoxicated or Sedated No (0 pts) Impaired Gait No (0 pts) Mobility Assist Device Used No (0 pt) Altered Elimination No (0 pt) Score/Fall Risk Level 0 - 2 = Low Risk Oriented to surroundings, Maintained a safe environment, Educated pt \\T\\ family on fall prevention, incl call for assistance when getting out of bed. Abuse screen: Denies threats or abuse. Nutritional screening: No deficits noted. Tuberculosis screening: No symptoms or risk factors identified. Assessment: 00:34 General: Appears in no apparent distress. uncomfortable, Behavior is calm, cooperative, vc1 appropriate for age. Pain: Complains of pain in Right first toenail, Right second toenail and Right third toenail Pain does not radiate. Pain currently is 7 out of 10 on a pain scale. Quality of pain is described as aching, Aggravated by weight bearing. Neuro: Level of Consciousness is awake, alert, obeys commands, Oriented to person, place, time, situation, Appropriate for age. Cardiovascular: No deficits noted. tip of first, 2nd and 3rd toe black.. Respiratory: Airway is patent Respiratory effort is even, unlabored, Respiratory pattern is regular, symmetrical. GI: No deficits noted. No signs and/or symptoms were reported involving the gastrointestinal system. : No deficits noted. No signs and/or symptoms were reported regarding the genitourinary system. EENT: No deficits noted. No signs and/or symptoms were reported regarding the EENT system. Derm: Skin is black, Wound noted Right second toenail. Musculoskeletal: No deficits noted. No signs and/or symptoms reported regarding the musculoskeletal system. Vital Signs: 07/30 20:58 BP 138 / 92; Pulse 100; Resp 15 S; Temp 97.4(TE); Pulse Ox 98% on R/A; Weight 86.18 kg as6 (R); Height 5 ft. 10 in. (R); Pain /; 07/31 00:43 BP 155 / 94; Pulse 92; Resp 16; Temp 97.6; Pulse Ox 100% ; vc1 07/30 20:58 Body Mass Index 27.26 (86.18 kg, 177.8 cm) as6 07/30 20:58 Pain Scale: Adult as6 Acton Coma Score: 21:25 Eye Response: spontaneous(4). Motor Response: obeys commands(6). Verbal Response: sp4 oriented(5). Total: 15. ED Course: 07/30 20:29 Patient arrived in ED. ra3 20:44 Mesfin Avila MD is Attending Physician. sp4 20:58 Arm band placed on. as6 21:00 Triage completed. as6 21:34 Foot Right 3 View XRAY In Process Unspecified. EDMS 23:26 Kaley Reeves, RN is Primary Nurse. vc1 23:30 Patient has correct armband on for positive identification. Bed in low position. Call vc1 light in reach. 04 00:32 Mike Monterroso DPM is Referral Physician. sp4 00:39 No provider procedures requiring assistance completed. Patient did not have IV access vc1 during this emergency room visit. 00:43 Provided Education on: follow up with podiatry. vc1 Administered Medications: 00:03 CANCELLED (Other Intervention Used): ns 0.9% 1000 ml IV at 1 bolus Per protocol; 1000 vc1 mL bolus 00:20 Drug: Trimethoprim-Sulfamethoxazole PO (160 mg-800 mg (DS) 1 tablet PO once Route: PO; vc1 00:38 Follow up: Response: No adverse reaction vc1 00:20 Drug: Cephalexin PO 500 mg PO once Route: PO; vc1 00:37 Follow up: Response: No adverse reaction vc1 00:21 Not Given (Physician Discretion): cefazolin1 grams IVPB once vc1 00:21 Drug: CeFAZolin IM 1 grams IM once Route: IM; Site: left ventrogluteal; vc1 00:37 Follow up: Response: No adverse reaction vc1 00:34 CANCELLED (Patient Refused): insulin regular human10 units Sub-Q once vc1 Medication: 00:38 VIS not applicable for this client. vc1 Outcome: 00:33 Discharge ordered by . sp4 00:43 Discharged to home ambulatory, vc1 00:43 Condition: good 00:43 Discharge instructions given to patient, Instructed on discharge instructions, follow up and referral plans. Demonstrated understanding of instructions, follow-up care, 00:44 Patient left the ED. vc1 Signatures: Dispatcher [employer] EDMS Sagar Gloria RN RN as6 Kaley Reeves, YVONNE RUSSELL vc1 Mesfin Avila MD MD sp4 Riya Shelton ra3
--- NOTE | 2023-08-01 00:34 | EDPHYS ---
Physician Documentation [facility] Name: Enio Bradley Age: 33 yrs Sex: Male : 1990 Arrival Date: 07/31/2023 Time: 20:26 Bed 16 Private MD: ED Physician Mesfin Avila HPI: 07/30 20:44 This 33 yrs old Male presents to ER via Unassigned with complaints of Foot sp4 Pain - black Big Great toe-Diabetic. 07/31 21:25 Patient presents with right foot toe discoloration of the great toe, second toe, third sp4 toe. Patient reports concerned that toes are infected. Patient reports discoloration started several days ago. Historical: - Allergies: 07/30 20:59 Clindamycin; as6 - PMHx: 20:59 Diabetes - IDDM; ADD/ADHD; as6 - PSHx: 20:59 I\T\D Right Great toe; as6 - Immunization history:: Adult Immunizations up to date. - Infectious Disease History:: Denies. - Social history:: Smoking status: Patient denies any tobacco usage or history of. - Family history:: not pertinent. ROS: 07/31 21:25 Constitutional: Negative for fever, chills, and weight loss, Positive right foot sp4 discolored toes All other systems are negative, Exam: 21:25 Constitutional: This is a well developed, well nourished patient who is awake, alert, sp4 and in no acute distress. Head/Face: Normocephalic, atraumatic. Eyes: Pupils equal round and reactive to light, extra-ocular motions intact. Lids and lashes normal. Conjunctiva and sclera are not injected. Cornea within normal limits. Periorbital areas with no swelling, redness, or edema. ENT: Nares patent. No nasal discharge, no septal abnormalities noted. Tympanic membranes are normal and external auditory canals are clear. Oropharynx with no redness, swelling, or masses, exudates, or evidence of obstruction, uvula midline. Mucous membranes moist. Neck: Trachea midline, no thyromegaly or masses palpated, and no cervical lymphadenopathy. Supple, full range of motion without nuchal rigidity, or vertebral point tenderness. Chest/axilla: Normal chest wall appearance and motion. Nontender with no deformity. No lesions are appreciated. Cardiovascular: Regular rate and rhythm with a normal S1 and S2. No gallops, murmurs, or rubs. Normal PMI, no JVD. No pulse deficits. Respiratory: Lungs have equal breath sounds bilaterally, clear to auscultation and percussion. No rales, rhonchi or wheezes noted. No increased work of breathing, no retractions or nasal flaring. Abdomen/GI: Soft, with normal bowel sounds. No distension or tympany. No guarding or rebound. No evidence of tenderness throughout. Back: No spinal tenderness. No costovertebral tenderness. Skin: Warm, dry with normal turgor. Normal color with no rashes, no lesions, and no evidence of cellulitis. MS/ Extremity: Pulses equal, no cyanosis. Neurovascular intact. Full, normal range of motion. Right foot has right great toe subungual hematoma, right second toe subungual hematoma, right third toe subungual hematoma indicative of subacute contusion of the great toe , second toe , and third toe Neuro: Awake and alert, GCS 15, oriented to person, place, time, and situation. Cranial nerves II-XII grossly intact. Motor strength 5/5 in all extremities. Sensory grossly intact. Psych: Awake, alert, with orientation to person, place and time. Behavior, mood, and affect are within normal limits Vital Signs: 07/30 20:58 BP 138 / 92; Pulse 100; Resp 15 S; Temp 97.4(TE); Pulse Ox 98% on R/A; Weight 86.18 kg as6 (R); Height 5 ft. 10 in. (R); Pain 6/10; 07/31 00:43 BP 155 / 94; Pulse 92; Resp 16; Temp 97.6; Pulse Ox 100% ; vc1 07/30 20:58 Body Mass Index 27.26 (86.18 kg, 177.8 cm) as6 04 20:58 Pain Scale: Adult as6 [place] Coma Score: 21:25 Eye Response: spontaneous(4). Motor Response: obeys commands(6). Verbal Response: sp4 oriented(5). Total: 15. MDM: 07/30 20:48 Patient medically screened. sp4 07/31 21:25 Differential diagnosis: fracture, sprain, foreign body, penetrating trauma, cellulitis. sp4 Data reviewed: vital signs, nurses notes. ED course: Based on examination there is subungual hematoma of the right great toe, subungual hematoma over the right second toe, and subungual hematoma of the right third toe. Right second toe had to be examined under digital block secondary to toe pain. Patient was informed that this is not an infectious process but rather signs of acute injury to right great toe right second toe and right third toe.. At this time stable for discharge home. Patient incidentally has left great toe pressure ulcer that warrants evaluation with plumber assistant patient was advised to see plumber assistant in the next 7 to 10 days. . 07/30 21:09 Order name: CBC with Diff; Complete Time: 00:29 sp4 07/30 21:09 Order name: CMP; Complete Time: 00:29 sp4 07/30 21:08 Order name: Foot Right 3 View XRAY; Complete Time: 23:29 sp4 07/30 21:09 Order name: Labs collected and sent; Complete Time: 00:03 sp4 Administered Medications: 00:03 CANCELLED (Other Intervention Used): ns 0.9% 1000 ml IV at 1 bolus Per protocol; 1000 vc1 mL bolus 00:20 Drug: Trimethoprim-Sulfamethoxazole PO (160 mg-800 mg (DS) 1 tablet PO once Route: PO; vc1 00:38 Follow up: Response: No adverse reaction vc1 00:20 Drug: Cephalexin PO 500 mg PO once Route: PO; vc1 00:37 Follow up: Response: No adverse reaction vc1 00:21 Not Given (Physician Discretion): cefazolin1 grams IVPB once vc1 00:21 Drug: CeFAZolin IM 1 grams IM once Route: IM; Site: left ventrogluteal; vc1 00:37 Follow up: Response: No adverse reaction vc1 00:34 CANCELLED (Patient Refused): insulin regular human10 units Sub-Q once vc1 Disposition Summary: 08/01/23 00:33 Discharge Ordered Problem: new sp4 Symptoms: have improved sp4 Condition: Stable sp4 Diagnosis - Great toe subungual hematoma,, right second toe subungual hematoma. Right third sp4 toe subungual hematoma, great toe contusion, right second toe contusion, right third toe contusion, hyperglycemia Followup: sp4 - With: Mkie Monterroso DPM - When: 7 - 10 days - Reason: Recheck today's complaints Discharge Instructions: - Discharge Summary Sheet sp4 - Hematoma, [id number] sp4 Forms: - Patient Portal Instructions sp4 Signatures: Dispatcher [employer] Sagar Noriega, RN RN as6 Kaley Reeves RN RN vc1 Mesfin Avila MD MD sp4 Corrections: (The following items were deleted from the chart) 07/30 20: 21:09 CBC+H.LAB.BRZ ordered. EDMS EDMS 21:09 COMPREHENSIVE METABOLIC PANEL+C.LAB.BRZ ordered. EDMS EDMS 07/31 00:03 07/30 21:09 NS 0.9% IV 1000 ml IV at 1 bolus Per protocol; 1000 mL bolus ordered. sp4 vc1 07/31 00:03 07/30 21:09 IV Saline Lock ordered. sp4 vc1 07/31 00:34 00:30 Insulin Regular Human Sub-Q 10 units Sub-Q once ordered. sp4 vc1
[2023-08-01 06:14] VITALS: BP 155/94; TEMP 97.6; O2SAT 100
== END 2023-08-01 00:44 | disposition home or self-care (01) ==
LOC: ER 20:26
DX: S90.211A Contusion of right great toe with damage to nail, initial encounter (principal); S90.221A Contusion of right lesser toe(s) with damage to nail, initial encounter; E11.65 Type 2 diabetes mellitus with hyperglycemia; Z88.3 Allergy status to other anti-infective agents
CPT/HCPCS: 85025; 36415; 80053; 73630; J2001 ×2; J0690

== ENCOUNTER 2024-01-19 11:54 | Inpatient (IN) | payer OTHER, SELFPAY ==
[2024-01-19] MEDS ORDERED: DEXTROSE ORAL 40% 15 GM TUBE ONE (12:20)
[2024-01-19 12:44] LABS: Absolute Lymphocytes (CBC) 1.1 K/uL (0.7-4.9); Absolute Monocytes 0.7 K/uL (0.1-1.3); Absolute Neutrophil 7.5 K/uL (1.8-8.0); Basophils % 0.4 % (0-1.3); Eosinophils % 0.5 % (0-4.4); Hematocrit 36.5 % (39.6-49.0); Hemoglobin 12.6 g/dL (13.6-17.9); Lymphocytes % 11.9 % (15.3-44.8); MCH 30.2 pg (27.0-35.0); MCHC 34.7 g/dL (32.0-36.0); MPV 7.4 fL (7.6-11.3); Monocytes % 7.5 % (3.3-12.3); Neutrophils % 79.7 % (41.7-73.7); Platelets 256 thou/uL (152-406); RBC Red Blood Cell Count 4.19 M/uL (4.33-5.43); Red Cell Distribution Width 12.7 % (12.1-15.2)
--- NOTE | 2024-01-19 12:58 | RAD REPORT ---
Exam:Foot Left 3 View CLINICAL HISTORY: Left foot pain FINDINGS: No fracture or dislocation seen. Soft tissue ulceration plantar aspect first IP joint. No adjacent bony destruction visualized
[2024-01-19 13:00] LABS: Albumin 3.1 g/dL (3.4-5.0); Albumin/Globulin Ratio 0.8 (1.1-1.8); Anion Gap 9.3 mEq/L (5.0-15.0); Bilirubin Total 0.6 mg/dL (0.2-1.0); Globulin 4.1 g/dL (2.3-3.5); Potassium 4.3 mEq/L (3.5-5.1); Protein, Total 7.2 g/dL (6.4-8.2)
[2024-01-19 13:03] LABS: PT Prothrombin Time 10.4 SECONDS (9.4-12.5); PTT, Activated Partial Thromb 32.3 SECONDS (24.3-36.9); Protime INR 0.93
[2024-01-19] MEDS ORDERED: VANCOMYCIN 1 GM/VIAL ONE (13:26)
[2024-01-19] MEDS ORDERED: NA CHLORIDE 0.9% 250 ML ONE (13:26)
--- NOTE | 2024-01-19 13:33 | EDPHYS ---
Physician Documentation [facility] Name: Enio Bradley Age: 33 yrs Sex: Male : 1990 Arrival Date: 01/19/2024 Time: 11:54 Bed 13 Private MD: ED Physician Reece Hebert HPI: 01/18 13:30 This 33 yrs old Male presents to ER via Ambulatory with complaints of Leg Pain. rn 13:30 The patient presents with pain. rn 13:31 The patient presents with cellulitis of the left leg. Onset: The symptoms/episode rn began/occurred 2 day(s) ago. Possible cause(s): unknown. Modifying factors: the symptoms are alleviated by nothing, the symptoms are aggravated by touching. Severity of symptoms: At their worst the symptoms were moderate, in the emergency department the symptoms are unchanged. The patient has experienced a previous episode. Patient reports redness and warmth to the left leg. Began 2 days ago. Worsening. States glucose averaging in the 400s. Has had a chronic wound to the left foot.. Historical: - Allergies: 12:04 Clindamycin; aa5 - PMHx: 12:04 ADD/ADHD; Diabetes - IDDM; Type 1 diabetes mellitus; aa5 - PSHx: 12:04 I\T\D Right Great toe; aa5 - Immunization history:: Adult Immunizations up to date. - Infectious Disease History:: Denies. - Family history:: not pertinent. - Hospitalizations: : No recent hospitalization is reported. - Social history:: Smoking status: Patient denies any tobacco usage or history of. ROS: 13:31 Constitutional: Negative for fever, chills, and weight loss, Cardiovascular: Negative rn for chest pain, palpitations, and edema, Respiratory: Negative for shortness of breath, cough, wheezing, and pleuritic chest pain, Abdomen/GI: Negative for abdominal pain, nausea, vomiting, diarrhea, and constipation, MS/Extremity: Positive for pain and redness to the left leg Skin: Open wound to the left foot Neuro: Negative for headache, weakness, numbness, tingling, and seizure, Exam: 13:31 Constitutional: This is a well developed, well nourished patient who is awake, alert, rn and in no acute distress. Cardiovascular: Tachycardic, regular. Respiratory: Mild tachypnea MS/ Extremity: Erythema to the left foot, wraps around to the dorsal foot, and extends proximally to anterior tibial region. Chronic wound to the left medial plantar surface of the foot at base of first toe. Clear drainage. Foul smell present. 14:27 ECG was reviewed by the Attending Physician. rn Vital Signs: 12:03 BP 129 / 84; Pulse 101; Resp 20 S; Temp 98.2(TE); Pulse Ox 99% on R/A; Weight 93.89 kg aa5 (R); Height 5 ft. 10 in. (R); 14:30 BP 146 / 95; Pulse 105; Resp 17; Temp 97.6; Pulse Ox 98% on R/A; Pain 4/10; ll1 12:03 Body Mass Index 29.70 (93.89 kg, 177.8 cm) aa5 14:30 Pain Scale: Adult ll1 MDM: 12:04 Patient medically screened. rn 13:31 Differential diagnosis: cellulitis. Differential diagnosis: Osteomyelitis. Data rn reviewed: vital signs, nurses notes, lab test result(s), radiologic studies, plain films, and as a result, I will admit patient. Consideration of Admission/Observation Patient was admitted/placed on observation. Escalation of care including admission/observation considered. Counseling: I had a detailed discussion with the patient and/or guardian regarding the historical points, exam findings, and any diagnostic results supporting the discharge/admit diagnosis, lab results, radiology results, the need for further work-up and treatment in the hospital. 01/18 12:09 Order name: Blood Culture Adult (2) rn 01/18 12:09 Order name: CBC with Diff; Complete Time: 13:23 rn 01/18 12:09 Order name: CMP; Complete Time: 13:23 rn 01/18 12:09 Order name: Lactate w/ 2H reflex if indic.; Complete Time: 13:23 rn 01/18 12:09 Order name: Protime (+inr); Complete Time: 13:23 rn 01/18 12:09 Order name: Ptt, Activated; Complete Time: 13: rn 01/18 12:44 Order name: Glucose, Ancillary Testing; Complete Time: 13:23 EDMS 01/18 12:09 Order name: XRAY Foot LEFT 3 View; Complete Time: 13: rn 01/18 12:09 Order name: EKG; Complete Time: 12:09 rn 01/18 14:11 Order name: CONS Physician Consult EDWA 01/18 12:09 Order name: Accucheck; Complete Time: 12:33 rn 01/18 12:09 Order name: Cardiac monitoring; Complete Time: 12:40 rn 01/18 12:09 Order name: EKG - Nurse/Tech; Complete Time: 12:40 rn 01/18 12:09 Order name: IV Saline Lock - Large Bore; Complete Time: 12:33 rn 01/18 12:09 Order name: Labs collected and sent; Complete Time: 12:33 rn 01/18 12:09 Order name: O2 Per Protocol; Complete Time: 12:18 rn 01/18 12:09 Order name: O2 Sat Monitoring; Complete Time: 12:18 rn 01/18 12:09 Order name: Vital Signs; Complete Time: 12:33 rn 01/18 12:21 Order name: Glucose Level; Complete Time: 12:33 rn EC: Rate is 101 beats/min. Rhythm is regular. QRS [place] is Normal. CT interval is normal. rn QRS interval is normal. QT interval is normal. No Q waves. T waves are Normal. No ST changes noted. Clinical impression: Sinus tachycardia. Interpreted by me. Reviewed by me. Administered Medications: 12:21 Not Given (Duplicate Order): glucoseliquid 10 grams PO once; may repeat once in 10 rn minutes 14:00 Drug: vancoMYCIN IVPB 1 grams IVPB once over 2 hrs Route: IVPB; Infused Over: 2 hrs; ll1 Site: right hand; 14:48 Follow up: Response: No adverse reaction; IV Status: Infusion continued upon admission; ll1 IV Intake: 100ml Disposition Summary: 01/19/24 13:33 Hospitalization Ordered Notes: Hospitalization Status: Inpatient Admission rn Provider: Gonzalez Hebert rn Location: Telemetry/MedSurg (Inpatient) rn Condition: Stable rn Problem: new rn Symptoms: have improved rn Bed/Room Type: Standard rn Room Assignment: 404(01/19/24 14:21) em1 Diagnosis - Cellulitis of left lower limb rn - Severe sepsis without septic shock rn Forms: - Medication Reconciliation Form rn - SBAR form rn - Leadership Thank You Letter rn Signatures: Dispatcher [employer] Reece Marks MD MD rn Martinez, Eric em1 Joelle Go, RN RN aa5 Hernan Martinez, RN RN ll1 Corrections: (The following items were deleted from the chart) 12:09 BLOOD CULTURE*+BA.LAB.BRZ ordered. EDMS EDMS 12:09 CBC+H.LAB.BRZ ordered. EDMS EDMS 12: 12:09 COMPREHENSIVE METABOLIC PANEL+C.LAB.BRZ ordered. EDMS EDMS 12:09 LACTATE+C.LAB.BRZ ordered. EDMS EDMS 12:09 PROTIME (+INR)+COAG.LAB.BRZ ordered. EDMS EDMS 12:09 PTT, ACTIVATED+COAG.LAB.BRZ ordered. EDMS EDMS 14:21 13:33 rn em1
--- NOTE | 2024-01-19 13:33 | ER ---
Nurse's Notes [facility] Name: Enio Bradley Age: 33 yrs Sex: Male : 1990 Arrival Date: 01/19/2024 Time: 11:54 Bed 13 Private MD: Diagnosis: Cellulitis of left lower limb;Severe sepsis without septic shock Presentation: 01/18 12:03 Chief complaint: Patient states: "I have a toe wound on my left foot and now it's aa5 swollen and red". Coronavirus screen: At this time, the client does not indicate any symptoms associated with coronavirus-19. Ebola Screen: Patient denies travel to an Ebola-affected area in the 21 days before illness onset. Initial Sepsis Screen: Does the patient meet any 2 criteria? No. Patient's initial sepsis screen is negative. Does the patient have a suspected source of infection? No. Patient's initial sepsis screen is negative. Risk Assessment: Do you want to hurt yourself or someone else? Patient reports no desire to harm self or others. Onset of symptoms was December 2023. 12:03 Acuity: JAMAL 3 aa5 12:03 Method Of Arrival: Ambulatory aa5 Historical: - Allergies: 12:04 Clindamycin; aa5 - PMHx: 12:04 ADD/ADHD; Diabetes - IDDM; Type 1 diabetes mellitus; aa5 - PSHx: 12:04 I\\T\\D Right Great toe; aa5 - Immunization history:: Adult Immunizations up to date. - Infectious Disease History:: Denies. - Family history:: not pertinent. - Hospitalizations: : No recent hospitalization is reported. - Social history:: Smoking status: Patient denies any tobacco usage or history of. Screenin:35 [facility] ED Fall Risk Assessment (Adult) History of falling in the last 3 months, ll1 including since admission No falls in past 3 months (0 pts) Confusion or Disorientation No (0 pts) Intoxicated or Sedated No (0 pts) Impaired Gait No (0 pts) Mobility Assist Device Used No (0 pt) Altered Elimination No (0 pt) Score/Fall Risk Level 0 - 2 = Low Risk Maintained a safe environment, Hourly rounding (assess needs \\T\\ fall precautionary measures) done. Abuse screen: Denies threats or abuse. Nutritional screening: No deficits noted. Tuberculosis screening: No symptoms or risk factors identified. Assessment: 12:20 General: Appears uncomfortable, Behavior is calm, cooperative, appropriate for age. ll1 Pain: Complains of pain in left foot Pain currently is 4 out of 10 on a pain scale. Quality of pain is described as aching. Neuro: No deficits noted. Cardiovascular: No deficits noted. Derm: Decubitus located on left foot approximately 1.5 cm to 2.5 cm has macerated edges is draining none noted. 12:45 Reassessment: No changes from previously documented assessment. Patient and/or family ll1 updated on plan of care and expected duration. Pain level reassessed. Patient is alert, oriented x 3, equal unlabored respirations, skin warm/dry/pink. 13:45 Reassessment: No changes from previously documented assessment. Patient and/or family ll1 updated on plan of care and expected duration. Pain level reassessed. Patient is alert, oriented x 3, equal unlabored respirations, skin warm/dry/pink. 14:30 Reassessment: No changes from previously documented assessment. Patient and/or family ll1 updated on plan of care and expected duration. Pain level reassessed. Patient is alert, oriented x 3, equal unlabored respirations, skin warm/dry/pink. Vital Signs: 12:03 BP 129 / 84; Pulse 101; Resp 20 S; Temp 98.2(TE); Pulse Ox 99% on R/A; Weight 93.89 kg aa5 (R); Height 5 ft. 10 in. (R); 14:30 BP 146 / 95; Pulse 105; Resp 17; Temp 97.6; Pulse Ox 98% on R/A; Pain 4/10; ll1 12:03 Body Mass Index 29.70 (93.89 kg, 177.8 cm) aa5 14:30 Pain Scale: Adult ll1 ED Course: 11:56 Patient arrived in ED. mg5 12:03 Arm band placed on. aa5 12:04 Triage completed. aa5 12:04 Reece Hebert MD is Attending Physician. rn 12:18 Hernan Martinez RN is Primary Nurse. ll1 12:25 Initial lab(s) drawn, by ne, sent to lab. First set of blood cultures drawn. Inserted ll1 saline lock: 22 gauge in left antecubital area, using aseptic technique. Blood collected. Flushed with 10 mL NS. 12:29 XRAY Foot LEFT 3 View In Process Unspecified. EDMS 12:40 Second set of blood cultures drawn. iw 13:33 Gonzalez Hebert MD is Hospitalizing Provider. rn 13:45 No provider procedures requiring assistance completed. IV discontinued, intact, ll1 bleeding controlled, No redness/swelling at site. Pressure dressing applied. 13:55 Inserted saline lock: 22 gauge in right hand, using aseptic technique. Blood collected. ll1 Flushed with 10 mL NS. 14:37 Patient has correct armband on for positive identification. Provided Education on: need ll1 for admit. 14:40 1440 CM met with Mr. Bradley at the bedside in the ED exam room. Patient identified by ane name and . Demographic sheet confirmed. Patient states he lives with his roommate on a single story home. He reports prior to admission, he performs ADLs independently .No MPOA in place, no HH, no home oxygen or other medical services at this time. His preferred plan is to return home upon discharge and states he has a friend, or his brother may transport him home. CM team will continue to follow and coordinate care during this hospital stay. Administered Medications: 12:21 Not Given (Duplicate Order): glucoseliquid 10 grams PO once; may repeat once in 10 rn minutes 14:00 Drug: vancoMYCIN IVPB 1 grams IVPB once over 2 hrs Route: IVPB; Infused Over: 2 hrs; ll1 Site: right hand; 14:48 Follow up: Response: No adverse reaction; IV Status: Infusion continued upon admission; ll1 IV Intake: 100ml Medication: 14:37 VIS not applicable for this client. ll1 Intake: 14:48 IV: 100ml; Total: 100ml. ll1 Outcome: 13:33 Decision to Hospitalize by Provider. rn 14:36 Admitted to Med/surg accompanied by tech, via wheelchair, room 404, with chart, Report ll1 called to faxed to 14:36 Condition: stable 14:36 Instructed on the need for admit, 14:49 Patient left the ED. ll1 Signatures: Dispatcher [employer] EDMS Patsy Hess RN RN iw Reece Hebert MD MD rn Calderon, Audri, RN RN aa5 Hernan Martinez RN RN ll1 Stefanie Ernst mg5 Beatris Wing, YVONNE RN ane
[2024-01-19] MEDS: VANCOMYCIN 1 GM in NA CHLORIDE 0.9% 250 ML IVPB ONE (14:48)
[2024-01-19 14:56] VITALS: BMI 29.7
[2024-01-19] MEDS ORDERED: ONDANSETRON 4 MG/2 ML VIAL IV PRN (15:20)
--- NOTE | 2024-01-19 15:59 | P.HP ---
Certification for Inpatient Patient admitted to: Inpatient With expected LOS: >2 Midnights Patient will require the following post-hospital care: None Practitioner: I am a practitioner with admitting privileges, knowledge of patient current condition, hospital course, and medical plan of care. Services: Services provided to patient in accordance with Admission requirements found in Title 42 Section 412.3 of the Code of Federal Regulations Patient History Date of Service: 01/19/24 Reason for admission: LLE cellulitis, foot wound History of Present Illness: 33-year-old male with history of type 1 diabetes presents emergency department with left lower extremity pain/concern for infection as well as diabetic foot wound to the left great toe. He reports he has been dealing with a wound on his toe for about a year now but he developed erythema and pain/swelling of his left lower extremity which started 24 to 48 hours ago. Labs were significant for a white blood cell count 9.4 hemoglobin 12.6 hematocrit 36.5 lactic acid 2.2 creatinine 1.61 GFR 58 glucose 176 left foot was negative for any signs of osteo-. Patient be admitted for left lower extremity cellulitis, left foot wound Allergies clindamycin Allergy (Verified 02/14/22 17:04) Itching/Hives/Rash Home Medications: Insulin Degludec [Tresiba] 32 units SQ SEECOM 02/09/22 Insulin Aspart [Novolog Flexpen] See Rx Instructions .ROUTE .COMPLEX 01/19/24 - Past Medical/Surgical History Has patient received pneumonia vaccine in the past: No Diabetic: Yes -: Diabetes mellitus type 1 -: ADD/ADHD -: Gastroparesis -: Anxiety -: gastroparesis -: RT great toe Psychosocial/ Personal History: Single, works-[employer], 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 - Family History Mother -: Cancer Father History Unknown: Yes - Social History Smoking Status: Never smoker Alcohol use: Yes CD- Drugs: No Caffeine use: Yes Place of Residence: Home Review of Systems 10-point ROS is otherwise unremarkable Musculoskeletal: Leg Pain Physical Examination - Vital Signs Temperature: 98.3 F Blood Pressure: 160/80 Pulse: 107 Respirations: 16 Pulse Ox (%): 100 - Physical Exam General: Alert, In no apparent distress, Oriented x3 HEENT: Atraumatic, PERRLA, Mucous membr. moist/pink, EOMI, Sclerae nonicteric Neck: Supple, 2+ carotid pulse no bruit, No LAD, Without JVD or thyroid abnormality Respiratory: Clear to auscultation bilaterally, Normal air movement Cardiovascular: Regular rate/rhythm, Normal S1 S2 Gastrointestinal: Normal bowel sounds, No tenderness Musculoskeletal: No tenderness Integumentary: Tenderness/swelling (Left lower extremity), Erythema, Diabetic ulcer (Left great toe) Neurological: Normal gait, Normal speech, Normal strength at 5/5 x4 extr, Normal tone, Normal affect Lymphatics: No axilla or inguinal lymphadenopathy - Studies Laboratory Data (last 24 hrs) 01/19/24 01/19/24 01/19/24 12:25 12:25 12:25 WBC 9.40 Hgb 12.6 L Hct 36.5 L Plt Count 256 PT 10.4 INR 0.93 APTT 32.3 Sodium 138 Potassium 4.3 BUN 23 H Creatinine 1.61 H Glucose 176 H Total Bilirubin 0.6 AST 14 L ALT 24 Alkaline Phosphatase 124 H Assessment and Plan - Plan Assessment: Severe sepsis secondary to left lower extremity cellulitis Left great toe diabetic foot wound Diabetes mellitus type 1 MELANIE on CKD 2 Plan: Severe sepsis secondary to left lower extremity cellulitis Left great toe diabetic foot wound IV antibiotics with vancomycin/cefepime X-ray not concerning for osteo at this time General Surgery consulted, will start Santyl wound for now Monitor CBC, fever trend Diabetes mellitus type 1 Takes 32 units of Tresiba daily at home as well as sliding scale insulin Will obtain A1c, start with 25 units of long-acting insulin daily for now MELANIE on CKD 2 Continue IV fluids, monitor renal function daily DVT PPX: Lovenox Code status: Full Discharge Plan: Home Plan to discharge in: 48 Hours - Advance Directives Does patient have a Living Will: No Does patient have a Durable POA for Healthcare: No - Code Status/Comfort Care Code Status Assessed: Yes (Full code) Critical Care: No Time Spent Managing Pts Care (In Minutes): 64
[2024-01-19] MEDS: CEFEPIME 2 GM in NA CHLORIDE 0.9% 100 ML IV SCH (16:01)
[2024-01-19] MEDS: NA CHLORIDE 0.9% 1,000 ML IV SCH (16:01)
[2024-01-19] MEDS: ENOXAPARIN 40 MG/0.4 ML SQ SCH (16:01)
[2024-01-19] MEDS: INSULIN REGULAR (HUMAN) 100 UNIT/ML SQ SCH (16:06)
[2024-01-19] MEDS: VANCOMYCIN 1.25 GM in NA CHLORIDE 0.9% 250 ML IVPB SCH (17:03)
[2024-01-20 06:07] LABS: Absolute Monocytes 0.5 K/uL (0.1-1.3); Absolute Neutrophil 5.3 K/uL (1.8-8.0); Basophils % 0.4 % (0-1.3); Eosinophils % 0.5 % (0-4.4); Hematocrit 33.7 % (39.6-49.0); Hemoglobin 11.9 g/dL (13.6-17.9); Lymphocytes % 14.9 % (15.3-44.8); MCHC 35.3 g/dL (32.0-36.0); MCV 87.8 fL (80-100); MPV 7.5 fL (7.6-11.3); Monocytes % 7.6 % (3.3-12.3); Neutrophils % 76.6 % (41.7-73.7); Platelets 214 thou/uL (152-406); RBC Red Blood Cell Count 3.84 M/uL (4.33-5.43); Red Cell Distribution Width 12.4 % (12.1-15.2)
[2024-01-20 06:21] LABS: Anion Gap 9.9 mEq/L (5.0-15.0); Potassium 4.9 mEq/L (3.5-5.1)
[2024-01-20] MEDS: INSULIN GLARGINE 100 UNIT/ML SQ SCH (08:20)
[2024-01-20] MEDS: VANCOMYCIN 1.75 GM in NA CHLORIDE 0.9% 500 ML IVPB SCH (08:21)
[2024-01-20 08:34] VITALS: O2SAT 97
[2024-01-20] MEDS ORDERED: INSULIN GLARGINE 100 UNIT/ML SQ SCH (09:00)
[2024-01-20] MEDS: INSULIN REGULAR (HUMAN) 100 UNIT/ML SQ ONE (10:56)
[2024-01-20] MEDS: COLLAGENASE 30 GM OINTMENT TOP SCH (10:57)
--- NOTE | 2024-01-20 13:06 | CON ---
Date of Consultation: 01/20/2024 Reason For Consultation: Left foot wound with cellulitis. History Of Present Illness: The patient is a 33-year-old gentleman who comes in with acute onset of pain and redness in his left lower leg. The patient also has a wound on his plantar lateral aspect o f his left great toe, which has been present for about a year. He has seen Dr. Matthews in the past. H e denies any purulent discharge, but he does have some discomfort in that area. He wears a steel toe shoe for work. The pain and swelling of his left leg started about 2 days ago. The patient denies any groin pain and no fever or chills. No sore throat, runny nose, cough, headaches, or dizziness. No chest pain. Review of Systems: Otherwise unremarkable. Past Medical History: Significant for type 1 diabetes, gastroparesis, chronic wounds in his foot, an xiety, and ADD. Past Surgical History: Debridement of right great toe, which has healed up. Allergies: CLINDAMYCIN. Social History: The patient does not smoke. Drinks occasionally. Family History: Significant for unknown type of cancer in the mother. Physical Examination: Vital Signs: Stable. He is afebrile. General: He is awake, alert, oriented x3. Head and neck: No masses. Chest: Clear. Heart: S1, S2. Abdomen: Soft. Extremities: Palpable dorsalis pedis and posterior tibial pulses. There is approximately a 2 cm wou nd in the plantar lateral aspect of the left great toe. There is some callus around the edges, mild in nature. There is a grade 2 wound with good granulation tissues, minimal fibrin present in the bas e of it. There is no purulent discharge. There is no significant erythema or warmth around the woun d itself. However, on the dorsum of the foot and the left middle leg, there is a large area of eryth tuan, warmth, and edema. Laboratory Data: White count is 6.9, there is a left shift. INR is 0.93. Chemistry shows blood glu cose of 442. The patient's lactic acid on admission was 2.2, follow up was 1.9. X-ray does not show any evidence of osteomyelitis or any other acute changes. Assessment: A 33-year-old gentleman with type 1 diabetes with left toe wound and cellulitis of the l eft lower extremity. Recommendations: Continue IV antibiotics for the time being. When the redness and erythema improves a little bit more and the patient's symptoms improve, he can be converted to oral antibiotics. He n eeds to follow up [facility] with either Dr. Matthews or myself, whichever he prefers a nd he may need outpatient debridement. He does not have any evidence of peripheral vascular disease, but should the wound not make any progress with aggressive wound care, then I would recommend daquan arora an arterial Doppler on him to make sure he does not have correctable vascular disease. Clinically, he does not appear to have it at this time, however. I will order Martinez for the wound itself and p elijah of care discussed in detail with the patient. DELMAR/AMAURI Voice ID: [id number] Report ID: [id number]
--- NOTE | 2024-01-20 15:42 | P.PN ---
Date of Service: 01/20/24 Subjective: Doing well overnight no new complaints ROS: 10 point ROS as noted above, otherwise negative Physical exam GEN: Alert, oriented, NAD HEENT: Normal conjunctiva, sclera anicteric CV: Regular rate and rhythm, no edema Pulm: Nonlabored respirations on room air ABD: Soft, nontender, nondistended MSK: No joint tenderness Integumentary: erythema, tenderness to LLE, diabetic foot wound to left lateral great toe Neuro: Normal speech, normal affect Vitals reviewed Assessment: Severe sepsis secondary to left lower extremity cellulitis Left great toe diabetic foot wound Diabetes mellitus type 1 with hyperglycemia MELANIE on CKD 2 Plan: Severe sepsis secondary to left lower extremity cellulitis Left great toe diabetic foot wound IV antibiotics with vancomycin/cefepime X-ray not concerning for osteo at this time General Surgery consulted, will start Santyl wound for now Follow up with wound healing outpatient for further management Monitor CBC, fever trend Diabetes mellitus type 1 hyperglycemia Takes 32 units of Tresiba daily at home as well as sliding scale insulin Will obtain A1c Resume long acting insulin and sliding scale MELANIE on CKD 2 Continue IV fluids, monitor renal function daily DVT PPX: Lovenox Code status: Full Discharge Plan: Home Plan to discharge in: 48 Hours Time Spent Managing Pts Care (In Minutes): 35
[2024-01-20] MEDS: HYDROCODONE/APAP 5/325 MG TAB PO PRN (21:12)
[2024-01-21 06:22] LABS: Absolute Eosinophils 0.1 K/uL (0-0.5); Absolute Lymphocytes (CBC) 1.5 K/uL (0.7-4.9); Absolute Monocytes 0.5 K/uL (0.1-1.3); Absolute Neutrophil 3.6 K/uL (1.8-8.0); Basophils % 0.5 % (0-1.3); Eosinophils % 2.1 % (0-4.4); Hematocrit 30.4 % (39.6-49.0); Hemoglobin 11.1 g/dL (13.6-17.9); MCH 31.4 pg (27.0-35.0); MCHC 36.5 g/dL (32.0-36.0); MCV 86.1 fL (80-100); MPV 7.2 fL (7.6-11.3); Monocytes % 8.4 % (3.3-12.3); Nucleated Red Blood Cells % 0.1 % (0-0); Platelets 221 thou/uL (152-406); RBC Red Blood Cell Count 3.53 M/uL (4.33-5.43); Red Cell Distribution Width 12.3 % (12.1-15.2)
[2024-01-21 06:32] LABS: Anion Gap 6.7 mEq/L (5.0-15.0); Potassium 3.7 mEq/L (3.5-5.1)
[2024-01-21] MEDS: POTASSIUM CL SA 10 MEQ TAB PO ONE (08:15)
[2024-01-21 09:28] VITALS: BP 137/85; TEMP 97.8
--- NOTE | 2024-01-21 09:58 | P.DS ---
Admission Date: 01/19/24 Discharge Date: 01/21/24 Disposition: ROUTINE DISCHARGE Discharge Condition: GOOD Reason for Admission: LLE cellulitis, foot wound Consultations: Dr. Rodriguez Brief History of Present Illness: 33-year-old male with history of type 1 diabetes presents emergency department with left lower extremity pain/concern for infection as well as diabetic foot wound to the left great toe. He reports he has been dealing with a wound on his toe for about a year now but he developed erythema and pain/swelling of his left lower extremity which started 24 to 48 hours ago. Labs were significant for a white blood cell count 9.4 hemoglobin 12.6 hematocrit 36.5 lactic acid 2.2 creatinine 1.61 GFR 58 glucose 176 left foot was negative for any signs of osteo-. Patient be admitted for left lower extremity cellulitis, left foot wound Hospital Course: Assessment: Severe sepsis secondary to left lower extremity cellulitis Left great toe diabetic foot wound Diabetes mellitus type 1 with hyperglycemia MELANIE on CKD 2 Patient was admitted to the hospital for cellulitis of the left lower extremity as well as a wound to his left great toe. He was treated initially with IV antibiotics and had significant improvement in the erythema, swelling and pain. General surgery also evaluated his great toe wound and recommended he follows up in wound healing center for further management and uses Santyl for now. X-ray of the left foot was not suspicious for osteomyelitis. Please follow-up with your primary care doctor in 1 to 2 weeks Please also follow-up with Dr. Rodriguez on the wound healing center Prescription for Bactrimantibiotic for 7 days sent to your pharmacy Apply Santyl to left great toe wound daily Continue your insulin regimen as previously prescribed Vital Signs/Physical Exam: Temp Pulse Resp BP Pulse Ox 97.8 F 85 16 137/85 98 01/21/24 08:00 01/21/24 08:00 01/21/24 08:16 01/21/24 08:00 01/21/24 08:16 General: Alert, In no apparent distress, Oriented x3 HEENT: Atraumatic, PERRLA, EOMI Neck: Supple, JVD not distended Respiratory: Clear to auscultation bilaterally, Normal air movement Cardiovascular: Regular rate/rhythm, Normal S1 S2 Gastrointestinal: Normal bowel sounds, No tenderness Musculoskeletal: No tenderness Integumentary: Erythema (LLE), Diabetic ulcer (Left great toe) Neurological: Normal speech, Normal tone, Normal affect Laboratory Data at Discharge: WBC 5.70 thou/uL (4.3-10.9) 01/21/24 05:50 Hgb 11.1 g/dL (13.6-17.9) L 01/21/24 05:50 Hct 30.4 % (39.6-49.0) L 01/21/24 05:50 Plt Count 221 thou/uL (152-406) 01/21/24 05:50 PT 10.4 SECONDS (9.4-12.5) 01/19/24 12:25 INR 0.93 01/19/24 12:25 APTT 32.3 SECONDS (24.3-36.9) 01/19/24 12:25 Sodium 138 mEq/L (136-145) D 01/21/24 05:50 Potassium 3.7 mEq/L (3.5-5.1) D 01/21/24 05:50 BUN 12 mg/dL (7-18) 01/21/24 05:50 Creatinine 0.75 mg/dL (0.70-1.30) 01/21/24 05:50 Glucose 75 mg/dL (74-106) 01/21/24 05:50 Total Bilirubin 0.6 mg/dL (0.2-1.0) 01/19/24 12:25 AST 14 U/L (15-37) L 01/19/24 12:25 ALT 24 U/L (16-61) 01/19/24 12:25 Alkaline Phosphatase 124 U/L (45-117) H 01/19/24 12:25 Home Medications: Insulin Degludec [Tresiba] 32 units SQ SEECOM 02/09/22 Insulin Aspart [Novolog Flexpen] See Rx Instructions .ROUTE .COMPLEX 01/19/24 Collagenase [Santyl Ointment*] 1 appl TOP DAILY #1 tube 01/21/24 Smz./Tmp. [Bactrim Ds 800 MG/160 MG] 1 tab PO BID 7 Days #14 tab 01/21/24 New Medications: Smz./Tmp. [Bactrim Ds 800 MG/160 MG] 1 tab PO BID 7 Days #14 tab Collagenase [Santyl Ointment*] 1 appl TOP DAILY #1 tube Physician Discharge Instructions: Patient was admitted to the hospital for cellulitis of the left lower extremity as well as a wound to his left great toe. He was treated initially with IV antibiotics and had significant improvement in the erythema, swelling and pain. General surgery also evaluated his great toe wound and recommended he follows up in wound healing center for further management and uses Santyl for now. X-ray of the left foot was not suspicious for osteomyelitis. Please follow-up with your primary care doctor in 1 to 2 weeks Please also follow-up with Dr. Rodriguez on the wound healing center Prescription for Bactrimantibiotic for 7 days sent to your pharmacy Apply Santyl to left great toe wound daily Continue your insulin regimen as previously prescribed Diet: ADA Activity: Ad melonie Followup: OOTO[facility] [Primary Care Provider] - 1-2 Weeks Ed Rodriguez MD [ACTIVE - CAN ADMIT] - 2-3 Days Time spent managing pt's care (in minutes): 41
--- NOTE | 2024-01-21 10:48 | PN ---
Date of Progress Note: 01/21/2024 Subjective: The patient is awake, alert. His leg feels much better. The pain is improved. Objective: Vital Signs: Stable. He is afebrile. Extremities: Examination of the left leg reveals no warmth to the redness anymore. The redness has gotten better as well as the swelling. Laboratory Data: The patient's white count is normal. There is no left shift anymore. Assessment: Left leg infected wound with cellulitis, improved. Recommendation: Wound care as ordered. The patient can be discharged home today on oral antibiotics and follow up with me in the [facility] and the plan of care disc ussed with the patient. /MODL Voice ID: [id number] Report ID: [id number]
--- NOTE | 2024-01-22 10:25 | EKG ---
Test Date: 2024-01-19 Test Time: 12:42:28 Race Steward: KIANA MEASUREMENT RESULTS: Intervals: Rate: 101 MS: 146 QRSD: 68 QT: 314 QTc: 407 [place]: P: 48 MS: 146 QRS: 61 T: 26 INTERPRETIVE STATEMENTS: Sinus tachycardia Nonspecific T wave abnormality Abnormal ECG Compared to ECG 01/11/2023 08:13:21 T-wave abnormality now present Sinus rhythm no longer present Myocardial infarct finding no longer present Electronically Signed On 01-22-24 10:21:10 CDT by Corby Dewitt
== END 2024-01-21 10:55 | disposition home or self-care (01) | DRG 872 ==
LOC: ER 11:54 → ERHOLD 14:07 → 4TH 14:40
PROVIDERS: ADMIT Hospitalist; ATTEND Hospitalist
DX: A41.9 Sepsis, unspecified organism (principal); L03.116 Cellulitis of left lower limb; N17.9 Acute kidney failure, unspecified; R65.20 Severe sepsis without septic shock; N18.2 Chronic kidney disease, stage 2 (mild); E10.22 Type 1 diabetes mellitus with diabetic chronic kidney disease; F90.9 Attention-deficit hyperactivity disorder, unspecified type; Z79.4 Long term (current) use of insulin; Z88.1 Allergy status to other antibiotic agents
CPT/HCPCS: 36415; 80048; 80053; 80202; 82947; 83036; 83605; 85025; 85610; 85730; 87040; 93005; 96365; 99285; J0692; J1650; J3590; J7030; J7040; J7050

== ENCOUNTER 2024-03-24 20:47 | Emergency (ER) | payer SELFPAY ==
--- NOTE | 2024-03-24 21:59 | RAD REPORT ---
EXAMINATION: TWO VIEW CHEST XR CLINICAL INDICATION: COUGH TECHNIQUE: 2 views of the chest was performed. COMPARISON: 04/30/2023 FINDINGS: The lungs are well inflated and clear. The heart is normal in size. No displaced fractures evident. IMPRESSION: No acute or significant abnormalities.
[2024-03-24 22:54] LABS: SARS-CoV-2 Antigen CONTROL BLUE LINE VIS/BG OK; SARS-CoV-2 Antigen Rapid Res Negative (Negative)
--- NOTE | 2024-03-24 23:03 | ER ---
Nurse's Notes [facility] Name: Enio Bradley Age: 33 yrs Sex: Male : 1990 Arrival Date: 03/24/2024 Time: 20:47 Bed 7 Private MD: Diagnosis: Cough;Acute pharyngitis, unspecified;Diabetes mellitus due to underlying condition with hyperglycemia Presentation: 03/24 21:20 Chief complaint: Patient states: COUGH, CONGESTION, SORE THROAT AND CHEST TIGHT FOR 5 dd2 DAYS. Coronavirus screen: congestion, cough unrelated to allergies, sore throat. Ebola Screen: No symptoms or risks identified at this time. Initial Sepsis Screen: Does the patient meet any 2 criteria? No. Patient's initial sepsis screen is negative. Does the patient have a suspected source of infection? No. Patient's initial sepsis screen is negative. Risk Assessment: Do you want to hurt yourself or someone else? Patient reports no desire to harm self or others. Onset of symptoms is unknown. 21:20 Method Of Arrival: Ambulatory dd2 21:20 Acuity: JAMAL 3 dd2 Triage Assessment: 21:23 General: Appears in no apparent distress. Behavior is calm, cooperative, appropriate dd2 for age. Pain: Complains of pain in chest Pain does not radiate. Pain currently is 3 out of 10 on a pain scale. Aggravated by cold, COUGHING. EENT: Throat is reddened Reports pain when swallowing. Neuro: Level of Consciousness is awake, alert, obeys commands, Oriented to person, place, time, situation, Appropriate for age. Cardiovascular: Patient's skin is warm and dry. Respiratory: Reports cough that is non-productive, pain with cough Airway is patent Respiratory effort is even, unlabored, Respiratory pattern is regular, symmetrical. GI: No deficits noted. No signs and/or symptoms were reported involving the gastrointestinal system. Abdomen is non-distended, Abd is soft and non tender X 4 quads. : No deficits noted. No signs and/or symptoms were reported regarding the genitourinary system. Derm: No deficits noted. No signs and/or symptoms reported regarding the dermatologic system. Skin is healthy with good turgor, Skin is dry, Skin temperature is warm. Musculoskeletal: Circulation, motion, and sensation intact. Range of motion: intact in all extremities. Historical: - Allergies: 21:23 Clindamycin; dd2 - Home Meds: 21:23 Novolog Flexpen subcutaneous [Active]; Tresiba FlexTouch U-100 subcutaneous [Active]; dd2 - PMHx: 21:23 ADD/ADHD; Diabetes - IDDM; Type 1 Diabetes Mellitus; dd2 - PSHx: 21:23 I\T\D Right Great toe; dd2 - Immunization history:: Adult Immunizations up to date. - Infectious Disease History:: Denies. - Social history:: Smoking status: Patient reports use of chewing tobacco. Screenin:27 [facility] ED Fall Risk Assessment (Adult) History of falling in the last 3 months, dd2 including since admission No falls in past 3 months (0 pts) Confusion or Disorientation No (0 pts) Intoxicated or Sedated No (0 pts) Impaired Gait No (0 pts) Mobility Assist Device Used No (0 pt) Altered Elimination No (0 pt) Score/Fall Risk Level 0 - 2 = Low Risk Oriented to surroundings, Maintained a safe environment, Educated pt \T\ family on fall prevention, incl call for assistance when getting out of bed, Assessed \T\ reinforced patient's understanding of fall precautions, Hourly rounding (assess needs \T\ fall precautionary measures) done. Abuse screen: Denies threats or abuse. Nutritional screening: No deficits noted. Tuberculosis screening: No symptoms or risk factors identified. Assessment: 21:27 Reassessment: SEE TRIAGE ASSESSMENT FOR FULL ASSESSMENT. dd2 Vital Signs: 21:20 BP 150 / 93; Pulse 94; Resp 16; Temp 98.6; Pulse Ox 98% on R/A; Weight 90.72 kg; Height dd2 5 ft. 10 in. ; 23:00 BP 135 / 83; Pulse 90; Resp 16; Pulse Ox 97% on R/A; dd2 21:20 Body Mass Index 28.70 (90.72 kg, 177.8 cm) dd2 Keysha Coma Score: 21:27 Eye Response: spontaneous(4). Motor Response: obeys commands(6). Verbal Response: dd2 oriented(5). Total: 15. ED Course: 20:51 Patient arrived in ED. im 20:52 Sabas Alfaro PA is PHCP. cp 20:52 Amor Pascual MD is Attending Physician. cp 21:11 ESTEVAN, JOSE, RN is Primary Nurse. dd2 21:23 Triage completed. dd2 21:23 Arm band placed on right wrist. Patient placed in an exam room, on a stretcher, on dd2 pulse oximetry. 21:27 Patient has correct armband on for positive identification. Bed in low position. Call dd2 light in reach. Side rails up X 1. Provided Education on: CALL LIGHT, LABS/RESULT TIMES. Client placed on continuous cardiac and pulse oximetry monitoring. NIBP monitoring applied. Door closed. Noise minimized. Warm blanket given. Pillow given. Verbal reassurance given. 21:27 No provider procedures requiring assistance completed. COVID swab sent to lab. Flu dd2 and/or RSV swab sent to lab. Strep swab sent to lab. Patient maintains SpO2 saturation greater than 95% on room air. 21:55 XRAY Chest Pa And Lat (2 Views) In Process Unspecified. EDMS 23:28 Patient did not have IV access during this emergency room visit. dd2 Administered Medications: No medications were administered Medication: 21:27 VIS not applicable for this client. dd2 Point of Care Testing: Blood Glucose: 21:23 Blood Glucose: 160 mg/dL; dd2 Ranges: Outcome: 23:02 Discharge ordered by . reggie 23:28 Discharged to home ambulatory, dd2 23:28 Condition: stable 23:28 Discharge instructions given to patient, Instructed on discharge instructions, follow up and referral plans. medication usage, Demonstrated understanding of instructions, follow-up care, medications, Prescriptions given X 2, 23:29 Patient left the ED. dd2 Signatures: Dispatcher [employer] EDWV Sabas Alfaro PA PA cp Mendoza, Itzel im DAVIS, DIANA, RN RN dd2
--- NOTE | 2024-03-24 23:03 | EDPHYS ---
Physician Documentation [facility] Name: Enio Bradley Age: 33 yrs Sex: Male : 1990 Arrival Date: 03/24/2024 Time: 20:47 Bed 7 Private MD: ED Physician Amor Pascula HPI: 03/24 21:25 This 33 yrs old Male presents to ER via Ambulatory with complaints of Flu Symptoms, cp High Blood Sugar. 21:25 The patient or guardian reports cough, that is intermittent, body aches, sore throat. cp 21:25 Patient reports elevated blood glucose today that was above 400. Took insulin prior to cp arrival. 21:25 Onset: The symptoms/episode began/occurred 5 day(s) ago. cp 21:25 Associated signs and symptoms: Pertinent negatives: diarrhea, fever, vomiting. cp Historical: - Allergies: 21:23 Clindamycin; dd2 - Home Meds: 21:23 Novolog Flexpen subcutaneous [Active]; Tresiba FlexTouch U-100 subcutaneous [Active]; dd2 - PMHx: 21:23 ADD/ADHD; Diabetes - IDDM; Type 1 Diabetes Mellitus; dd2 - PSHx: 21:23 I\T\D Right Great toe; dd2 - Immunization history:: Adult Immunizations up to date. - Infectious Disease History:: Denies. - Social history:: Smoking status: Patient reports use of chewing tobacco. ROS: 21:30 Constitutional: Positive for body aches, Negative for fever, poor PO intake, cp 21:30 Eyes: Negative for injury, pain, redness, and discharge, cp 21:30 ENT: Positive for sore throat, Negative for drainage from ear(s), ear pain, difficulty swallowing, difficulty handling secretions, 21:30 Cardiovascular: Negative for chest pain, 21:30 Respiratory: Positive for cough, Negative for shortness of breath, wheezing, 21:30 Abdomen/GI: Negative for abdominal pain, vomiting, diarrhea, constipation, 21:30 Neuro: Negative for altered mental status, dizziness, headache, weakness, 21:30 All other systems are negative, Exam: 21:35 Constitutional: The patient appears in no acute distress, alert, awake, cp non-diaphoretic, non-toxic, well developed, well nourished, 21:35 Head/Face: Normocephalic, atraumatic. cp 21:35 Eyes: Periorbital structures: appear normal, Conjunctiva: normal, no exudate, no injection, Lids and lashes: appear normal, bilaterally, 21:35 ENT: External ear(s): are unremarkable, Ear canal(s): are normal, clear, TM's: dullness, bilaterally, Nose: is normal, Mouth: Lips: moist, Oral mucosa: moist, Posterior pharynx: Airway: no evidence of obstruction, patent, Tonsils: no enlargement, no exudate, erythema, that is mild, 21:35 Neck: ROM/movement: is normal, is supple, no meningismus, no nuchal rigidity, 21:35 Chest/axilla: Inspection: normal, 21:35 Cardiovascular: Rate: normal, Rhythm: regular, 21:35 Respiratory: the patient does not display signs of respiratory distress, Respirations: normal, no use of accessory muscles, no retractions, labored breathing, is not present, Breath sounds: are clear throughout, no decreased breath sounds, no stridor, no wheezing, 21:35 Abdomen/GI: Exam negative for discomfort, distension, guarding, Inspection: abdomen appears normal, Vital Signs: 21:20 BP 150 / 93; Pulse 94; Resp 16; Temp 98.6; Pulse Ox 98% on R/A; Weight 90.72 kg; Height dd2 5 ft. 10 in. ; 23:00 BP 135 / 83; Pulse 90; Resp 16; Pulse Ox 97% on R/A; dd2 21:20 Body Mass Index 28.70 (90.72 kg, 177.8 cm) dd2 [place] Coma Score: 21:27 Eye Response: spontaneous(4). Motor Response: obeys commands(6). Verbal Response: dd2 oriented(5). Total: 15. MDM: 21:11 Medical Screening Exam initiated cp 23:01 Data reviewed: vital signs, nurses notes, lab test result(s), radiologic studies, plain cp films, and as a result, I will discharge patient. 23:01 Counseling: I had a detailed discussion with the patient and/or guardian regarding the cp historical points, exam findings, and any diagnostic results supporting the discharge/admit diagnosis, lab results, radiology results. 03/24 20:53 Order name: Influenza Screen (a \T\ B); Complete Time: 23:01 03/24 20:53 Order name: SARS RAPID; Complete Time: 23:01 03/24 21:22 Order name: Strep; Complete Time: 23:01 03/24 21:22 Order name: Glucose, Ancillary Testing; Complete Time: 21:45 EDOK 03/24 21:45 Interpretation: Reviewed. 03/24 22:56 Order name: Throat Culture EDOK 03/24 21:22 Order name: XRAY Chest Pa And Lat (2 Views); Complete Time: 22:13 03/24 22:13 Interpretation: Report reviewed. 03/24 20:53 Order name: Accucheck Blood Glucose; Complete Time: 21:22 cp Administered Medications: No medications were administered Point of Care Testing: Blood Glucose: 21:23 Blood Glucose: 160 mg/dL; dd2 Ranges: Critical Glucose Levels:Adult <50 mg/dl or >400 mg/dl <40 mg/dl or >180 mg/dl Disposition Summary: 03/24/24 23:02 Discharge Ordered Notes: Location: Home cp Problem: new cp Symptoms: have improved cp Condition: Stable cp Diagnosis - Cough cp - Acute pharyngitis, unspecified cp - Diabetes mellitus due to underlying condition with hyperglycemia cp Followup: cp - With: Private Physician - When: 2 - 3 days - Reason: Worsening of condition Discharge Instructions: - Discharge Summary Sheet cp - Hyperglycemia cp - Pharyngitis cp - Sore Throat cp - Blood Glucose Monitoring, Adult cp - Cough, Adult cp Forms: - Medication Reconciliation Form cp - Antibiotic Education cp - Prescription Opioid Use cp - Patient Portal Instructions cp - Leadership Thank You Letter cp Prescriptions: - Bromfed DM 2-30-10 mg/5 mL Oral syrup - administer 10 milliliter ORAL route every 6-8 hours as needed for cold cp symptoms; 240 milliliter; Refills: 0, Product Selection Permitted - Zithromax Z-Live 250 mg Oral Tablet - take 1 tablet ORAL route as directed for 5 days Day 1 - take two (2) tablets cp one time. Day 2, 3, 4 , 5 take one (1) tablet once daily.; 6 tablet; Refills: 0, Product Selection Permitted Signatures: Dispatcher [employer] EDOK Sabas Alfaro PA PA cp JOSE BARRETO RN RN dd2 Corrections: (The following items were deleted from the chart) 21:33 20:53 Urinalysis+U.LAB.YAYAZ ordered. EDMS EDMS
[2024-03-25 03:24] VITALS: TEMP 98.6
[2024-03-25 03:25] VITALS: BP 135/83; O2SAT 97
== END 2024-03-24 23:29 | disposition home or self-care (01) ==
LOC: ER 20:47
DX: R05.9 Cough, unspecified (principal); J02.9 Acute pharyngitis, unspecified; E11.65 Type 2 diabetes mellitus with hyperglycemia; Z11.52 Encounter for screening for COVID-19
CPT/HCPCS: 36415; 71046; 82947; 87070; 87081; 87804; 87811; 99284

== ENCOUNTER 2024-04-02 02:05 | Inpatient (IN) | payer SELFPAY ==
[2024-04-02] MEDS ORDERED: INSULIN REGULAR (HUMAN) 100 UNIT/ML ONE ×4 (02:39→14:46)
[2024-04-02] MEDS ORDERED: ONDANSETRON 4 MG/2 ML VIAL ONE (02:39)
[2024-04-02] MEDS ORDERED: NA CHLORIDE 0.9% 2,000 ML ONE (02:40)
[2024-04-02 03:11] LABS: Absolute Lymphocytes (CBC) 0.7 K/uL (0.7-4.9); Absolute Monocytes 0.2 K/uL (0.1-1.3); Absolute Neutrophil 5.7 K/uL (1.8-8.0); Basophils % 0.3 % (0-1.3); Eosinophils % 0.2 % (0-4.4); Hematocrit 40.3 % (39.6-49.0); Hemoglobin 13.7 g/dL (13.6-17.9); Lymphocytes % 10.1 % (15.3-44.8); MCH 30.6 pg (27.0-35.0); MCV 90.1 fL (80-100); MPV 8.3 fL (7.6-11.3); Monocytes % 3.5 % (3.3-12.3); Neutrophils % 85.9 % (41.7-73.7); Platelets 237 thou/uL (152-406); RBC Red Blood Cell Count 4.47 M/uL (4.33-5.43); Red Cell Distribution Width 12.6 % (12.1-15.2)
[2024-04-02 03:55] LABS: Albumin 3.4 g/dL (3.4-5.0); Albumin/Globulin Ratio 0.9 (1.1-1.8); Anion Gap 18.9 mEq/L (5.0-15.0); Bilirubin Direct 0.2 mg/dL (0-0.2); Bilirubin Indirect, Calculated 0.8 mg/dL (0.2-0.8); Potassium 4.9 mEq/L (3.5-5.1); Protein, Total 7.4 g/dL (6.4-8.2); Troponin High Sensitivity 5.2 pg/mL (<58.9)
[2024-04-02 04:37] LABS: Band Neutrophils 6 % (0-1); Blood Morphology Comment NOT SEEN (NOT SEEN); Differential Total Cells Count 100; Lymphocytes 10 % (15-42); Monocytes 1 % (0-10); Platelet Estimate ADEQ; Reactive Lymphocytes 1 %; Segmented Neutrophils 81 % (40-80)
[2024-04-02] MEDS ORDERED: NA CHLORIDE 0.9% 1,000 ML ONE ×3 (05:03→13:53)
--- NOTE | 2024-04-02 06:05 | RAD REPORT ---
EXAMINATION: XR CHEST 1 VIEW INDICATION: Male, 33 years old, chest discomfort TECHNIQUE: 1 view COMPARISON(S): None available FINDINGS: SUPPORT DEVICES: Overlying leads. LUNGS/PLEURA: No consolidation, pleural effusion, or pneumothorax. HEART/MEDIASTINUM: Normal size and configuration. OTHER: No acute osseous findings. IMPRESSION: No acute cardiopulmonary findings. Electronically signed by: Jake Alexander MD 04/02/2024 04:25 AM [employer] Due to temporary technical issues with the [employer] reporting system, reports are being teddy d by the in-house radiologist without review as a courtesy to ensure prompt reporting the interpreting radiologist is fully responsible for the content of the report. Transcribed Date/Time: 04/02/2024 6:05 AM
[2024-04-02] MEDS ORDERED: METOCLOPRAMIDE 10 MG/2mL INJ ONE ×2 (06:26→17:03)
[2024-04-02 06:27] LABS: Anion Gap 13.8 mEq/L (5.0-15.0); Potassium 3.8 mEq/L (3.5-5.1)
--- NOTE | 2024-04-02 06:40 | EDPHYS ---
Physician Documentation [facility] Name: Enio Bradley Age: 33 yrs Sex: Male : 1990 Arrival Date: 04/02/2024 Time: 02:05 Bed 5 Private MD: ED Physician Mesfin Avila HPI: 04/02 02:15 This 33 yrs old Male presents to ER via Unassigned with complaints of High sp4 Blood Sugar, Nausea/Vomiting, Chest Pain. 05:27 33-year-old male with history of diabetes mellitus type 2 presents with acute nausea sp4 vomiting starting Monday. Patient has history of severe sepsis and left lower extremity cellulitis with diabetic left great toe ulcer. Poorly controlled diabetes mellitus type 2 and history of MELANIE. Patient's medications include Tresiba insulin 32 units every evening, and aspart insulin sliding scale. Last admission 01/19/2024 for severe sepsis left lower extremity cellulitis and left lower extremity great toe diabetic ulcer. Historical: - Allergies: 02:57 Clindamycin; bm8 - Home Meds: 02:57 Novolog Flexpen subcutaneous [Active]; Tresiba FlexTouch U-100 subcutaneous [Active]; bm8 - PMHx: 02:57 ADD/ADHD; Diabetes - IDDM; Type 1 Diabetes Mellitus; bm8 - PSHx: 02:57 I\T\D Right Great toe; bm8 - Immunization history:: Adult Immunizations up to date. - Infectious Disease History:: Denies. - Family history:: not pertinent. - Social history:: Smoking status: Patient denies any tobacco usage or history of. ROS: 05:27 Constitutional: Negative for fever, chills, and weight loss, positive for nausea sp4 vomiting, elevated blood sugar and chest pain. 05:27 All other systems are negative, Exam: 05:30 Constitutional: This is a well developed, well nourished patient who is awake, alert, sp4 and in no acute distress. Head/Face: Normocephalic, atraumatic. Eyes: Pupils equal round and reactive to light, extra-ocular motions intact. Lids and lashes normal. Conjunctiva and sclera are not injected. Cornea within normal limits. Periorbital areas with no swelling, redness, or edema. ENT: Nares patent. No nasal discharge, no septal abnormalities noted. Tympanic membranes are normal and external auditory canals are clear. Oropharynx with no redness, swelling, or masses, exudates, or evidence of obstruction, uvula midline. Dry mucous membranes Neck: Trachea midline, no thyromegaly or masses palpated, and no cervical lymphadenopathy. Supple, full range of motion without nuchal rigidity, or vertebral point tenderness. Chest/axilla: Normal chest wall appearance and motion. Nontender with no deformity. No lesions are appreciated. Cardiovascular: Regular rate and rhythm with a normal S1 and S2. No gallops, murmurs, or rubs. Normal PMI, no JVD. No pulse deficits. Respiratory: Lungs have equal breath sounds bilaterally, clear to auscultation and percussion. No rales, rhonchi or wheezes noted. No increased work of breathing, no retractions or nasal flaring. Abdomen/GI: Soft, with normal bowel sounds. No distension or tympany. No guarding or rebound. No evidence of tenderness throughout. Back: No spinal tenderness. No costovertebral tenderness. Skin: Warm, dry with normal turgor. Normal color with no rashes, no lesions, and no evidence of cellulitis. MS/ Extremity: Pulses equal, no cyanosis. Neurovascular intact. Full, normal range of motion. Neuro: Awake and alert, GCS 15, oriented to person, place, time, and situation. Cranial nerves II-XII grossly intact. Motor strength 5/5 in all extremities. Sensory grossly intact. Psych: Awake, alert, with orientation to person, place and time. Behavior, mood, and affect are within normal limits 05:30 ECG was reviewed by the Attending Physician. Positive for EKG 0 227, sinus tachycardia rate 101 Vital Signs: 03:48 Pulse 100; Resp 14; Temp 98.4; Pulse Ox 100% ; Weight 90.72 kg; Height 5 ft. 10 in. ; bm8 Pain 7/10; 05:13 BP 114 / 57; Pulse 98; Resp 17; Temp 98.4; Pulse Ox 97% ; Pain 0/10; bm8 06:28 BP 149 / 91; Pulse 108; Resp 20; Temp 98.4; Pulse Ox 98% ; Pain 0/10; bm8 03:48 Body Mass Index 28.70 (90.72 kg, 177.8 cm) bm8 03:48 Pain Scale: Adult bm8 05:13 Pain Scale: Adult bm8 06:28 Pain Scale: Adult bm8 Keysha Coma Score: 02:57 Eye Response: spontaneous(4). Motor Response: obeys commands(6). Verbal Response: bm8 oriented(5). Total: 15. 05:13 Eye Response: spontaneous(4). Motor Response: obeys commands(6). Verbal Response: bm8 oriented(5). Total: 15. 05:30 Eye Response: spontaneous(4). Motor Response: obeys commands(6). Verbal Response: sp4 oriented(5). Total: 15. 06:28 Eye Response: spontaneous(4). Motor Response: obeys commands(6). Verbal Response: bm8 oriented(5). Total: 15. MDM: 04:10 Medical Screening Exam initiated sp4 05:34 ED course: EXAMINATION: XR CHEST 1 VIEW INDICATION: Male, 33 years old, chest sp4 discomfort TECHNIQUE: 1 view COMPARISON(S): None available FINDINGS: SUPPORT DEVICES: Overlying leads. LUNGS/PLEURA: No consolidation, pleural effusion, or pneumothorax. HEART/MEDIASTINUM: Normal size and configuration. OTHER: No acute osseous findings. IMPRESSION: No acute cardiopulmonary findings. . 05:35 Differential diagnosis: diabetes insipidus, DKA, hyperglycemia, hyperthyroidism. Data sp4 reviewed: vital signs, nurses notes. 05:37 Consideration of Admission/Observation Escalation of care including sp4 admission/observation considered. Management of patient was discussed with the following: Hospitalist: Admitting team . 06:39 ED course: Anion gap was closed in the ER. DKA is resolved in ER. Patient stable for sp4 admission for IV hydration and diabetes management.. 04/02 02:17 Order name: Influenza Screen (a \T\ B); Complete Time: 06:31 sp4 04/02 02:17 Order name: Basic Metabolic Panel; Complete Time: 04:42 sp4 04/02 02:17 Order name: CBC with Diff; Complete Time: 04:42 sp4 04/02 02:17 Order name: LFT's; Complete Time: 04:42 sp4 04/02 02:17 Order name: Magnesium; Complete Time: 04:42 sp4 04/02 02:17 Order name: NT PRO-BNP; Complete Time: 04:42 sp4 04/02 02:17 Order name: Troponin HS; Complete Time: 04:42 sp4 04/02 03:03 Order name: Glucose, Ancillary Testing; Complete Time: 03:35 EDMS 04/02 03:54 Order name: Manual Differential; Complete Time: 04:42 EDMS 04/02 03:56 Order name: Blood Culture Adult (2) 8 04/02 03:56 Order name: Lactate w/ 2H reflex if indic.; Complete Time: 04:42 8 04/02 04:34 Order name: Glucose, Ancillary Testing; Complete Time: 04:42 EDMS 04/02 04:45 Order name: BMP; Complete Time: 06:31 sp4 04/02 05:29 Order name: Troponin High Sensitivity; Complete Time: 07:07 4 04/02 06:32 Order name: Influenza Screen (a \T\ B) 4 04/02 06:32 Order name: SARS RAPID 4 04/02 07:37 Order name: Urinalysis w/ reflexes EDMS 04/02 07:37 Order name: Basic Metabolic Panel EDMS 04/02 07:37 Order name: Basic Metabolic Panel EDMS 04/02 07:37 Order name: Basic Metabolic Panel EDMS 04/02 07:37 Order name: Basic Metabolic Panel EDMS 04/02 07:37 Order name: CBC with Automated Diff EDMS 04/02 07:37 Order name: CBC with Automated Diff EDMS 04/02 07:37 Order name: CBC with Automated Diff EDMS 04/02 07:37 Order name: CBC with Automated Diff EDMS 04/02 07:37 Order name: Magnesium EDMS 04/02 07:37 Order name: Magnesium EDMS 04/02 07:37 Order name: Magnesium EDMS 04/02 07:37 Order name: Magnesium EDMS 04/02 08:00 Order name: Troponin High Sensitivity EDMS 04/02 08:00 Order name: Troponin High Sensitivity EDMS 04/02 08:00 Order name: Troponin High Sensitivity EDMS 04/02 08:45 Order name: Glucose, Ancillary Testing EDMS 04/02 10:43 Order name: Glucose, Ancillary Testing EDMS 04/02 13:22 Order name: Glucose, Ancillary Testing EDMS 04/02 14:21 Order name: CBC with Automated Diff EDMS 04/02 16:44 Order name: Glucose, Ancillary Testing EDMS 04/02 02:17 Order name: XRAY Chest (1 view); Complete Time: 06:25 sp4 04/02 02:17 Order name: EKG; Complete Time: 02:17 sp4 04/02 07:37 Order name: [facility] Cons EDMS 04/02 02:17 Order name: Cardiac monitoring; Complete Time: 02:54 sp4 04/02 02:17 Order name: EKG - Nurse/Tech; Complete Time: 02:54 sp4 04/02 02:17 Order name: IV Saline Lock; Complete Time: 02:54 sp4 04/02 02:17 Order name: Labs collected and sent; Complete Time: 02:54 sp4 04/02 02:17 Order name: O2 Per Protocol; Complete Time: :54 sp4 04/02 02:17 Order name: O2 Sat Monitoring; Complete Time: :54 sp4 EC:27 Rate is 101 beats/min. Rhythm is regular, Sinus tachycardia. QRS [place] is Normal. [place] sp4 interval is normal. QRS interval is normal. QT interval is normal. No Q waves. T waves are Normal. No ST changes noted. Clinical impression: No evidence of ischemia. Interpreted by me. Reviewed by me. Administered Medications: 02:54 Drug: NS 0.9% IV 1000 ml IV at 1000 ml once; to be given as a bolus over 60 minutes bm8 Route: IV; Rate: 1000 ml; Site: right antecubital; 07:30 Follow up: IV Status: Completed infusion iw 02:54 Drug: NS 0.9% IV 1000 ml IV at 1 bolus Per protocol; to be given as a bolus over 60 bm8 minutes Route: IV; Rate: 1 bolus; Site: right antecubital; 07:30 Follow up: IV Status: Completed infusion iw 02:54 Drug: Ondansetron IVP 8 mg IVP once; over 2 minutes Route: IVP; Site: right antecubital;bm8 03:57 Follow up: Response: No adverse reaction bm8 02:54 Drug: Insulin Regular Human IVP 10 units IVP once {Co-Signature: kj2 (Larissa Torrez8 RN).} Route: IVP; Site: right antecubital; 03:57 Follow up: Response: No adverse reaction bm8 05:10 Drug: Insulin Regular Human IVP 10 units IVP once {Co-Signature: mt4 (Guille Antonio bm8 RN).} Route: IVP; Site: left antecubital; 08:00 Follow up: Response: No adverse reaction iw 05:10 Drug: NS 0.9% IV 1000 ml IV at 1000 ml once; to be given as a bolus over 60 minutes bm8 Route: IV; Rate: 1000 ml; Site: left antecubital; 07:15 Follow up: IV Status: Completed infusion iw 05:58 Drug: NS 0.9% IV 1000 ml IV at 125 ml/hr Per protocol; to be given as a bolus over 60 bm8 minutes Route: IV; Rate: 125 ml/hr; Site: left antecubital; 11:00 Follow up: IV Status: Infusion continued upon admission iw 06:27 Drug: metoCLOPramide IVP 10 mg IVP once; over 1 to 2 minutes Route: IVP; Site: left bm8 antecubital; Disposition Summary: 04/02/24 06:39 Hospitalization Ordered Notes: Hospitalization Status: Inpatient Admission sp4 Provider: Bradley Molina spVerna Condition: Fair sp4 Problem: new sp4 Symptoms: have improved sp4 Bed/Room Type: Standard sp4 Location: Intensive Care Unit(04/02/24 15:48) bd Room Assignment: 5-(04/02/24 15:48) bd Diagnosis - Diabetic ketoacidosis, moderate dehydration, hyperglycemia, uncontrolled diabetes sp4 mellitus type I Forms: - Medication Reconciliation Form sp4 - SBAR form sp4 - Leadership Thank You Letter sp4 Critical care time excluding procedures: 06:34 Critical care time: Bedside Care: 36 minutes, Consultation: 12 minutes, Family sp4 Intervention: 12 minutes. Total time: 60 minutes Signatures: Dispatcher [employer] EDMS Yadi Prabhakar Irene RN RN iw AbleRosey, RN RN [email or web address] Mesfin Avila MD MD sp4 Robb Rae RN YVONNE bm8 Guille Antonio, RN RN mt4 Larissa Torrez RN kj2 Guille Antonio RN mt4 Corrections: (The following items were deleted from the chart) 09: 06:39 Telemetry/MedSurg (Inpatient) sp4 iw 09:27 06:39 sp4 iw 15:48 09:27 [facility] ER HOLD iw bd 15:48 09:27 ERHOLD- iw bd
--- NOTE | 2024-04-02 06:40 | ER ---
Nurse's Notes [facility] Name: Enio Bradley Age: 33 yrs Sex: Male : 1990 Arrival Date: 04/02/2024 Time: 02:05 Bed 5 Private MD: Diagnosis: Diabetic ketoacidosis, moderate dehydration, hyperglycemia, uncontrolled diabetes mellitus type I Presentation: 04/02 02:15 Method Of Arrival: Ambulatory bm8 02:15 Coronavirus screen: Vaccine status: Patient reports receiving the 2nd dose of the covid bm8 vaccine. Ebola Screen: Patient negative for fever greater than or equal to 101.5 degrees Fahrenheit, and additional compatible Ebola Virus Disease symptoms Patient denies exposure to infectious person. Patient denies travel to an Ebola-affected area in the 21 days before illness onset. No symptoms or risks identified at this time. Initial Sepsis Screen: Does the patient meet any 2 criteria? No. Patient's initial sepsis screen is negative. Does the patient have a suspected source of infection? No. Patient's initial sepsis screen is negative. Risk Assessment: Do you want to hurt yourself or someone else? Patient reports no desire to harm self or others. Onset of symptoms was April 01, 2024 at 08:00. 02:15 Acuity: JAMAL 3 bm8 02:29 Chief complaint: Patient states: Pt states DKA with nasea, vomiting, coughing and mt4 midchest pain. patient states last BS check at lunch with reading of 168 which patient suspects is inaccurate. PMH Type 1 Diabetes. Blood sugar check in room reading HI. Triage Assessment: 02:15 General: Appears in no apparent distress. uncomfortable, Behavior is calm, cooperative, bm8 appropriate for age. Pain: Complains of pain in abdomen. EENT: No deficits noted. No signs and/or symptoms were reported regarding the EENT system. Neuro: No deficits noted. Level of Consciousness is awake, alert, obeys commands, Oriented to person, place, time, situation, Appropriate for age. Cardiovascular: Denies chest pain, Capillary refill < 3 seconds in bilateral fingers. Respiratory: Airway is patent Respiratory effort is even, unlabored, Respiratory pattern is regular, symmetrical, Breath sounds are clear bilaterally. GI: Reports lower abdominal pain, upper abdominal pain, nausea, Pain is 5 out of 10 on a pain scale. vomiting. : No signs and/or symptoms were reported regarding the genitourinary system. Derm: No signs and/or symptoms reported regarding the dermatologic system. Musculoskeletal: No signs and/or symptoms reported regarding the musculoskeletal system. Historical: - Allergies: : Clindamycin; bm8 - Home Meds: :57 Novolog Flexpen subcutaneous [Active]; Tresiba FlexTouch U-100 subcutaneous [Active]; bm8 - PMHx: :57 ADD/ADHD; Diabetes - IDDM; Type 1 Diabetes Mellitus; bm8 - PSHx: :57 I\T\D Right Great toe; bm8 - Immunization history:: Adult Immunizations up to date. - Infectious Disease History:: Denies. - Family history:: not pertinent. - Social history:: Smoking status: Patient denies any tobacco usage or history of. Screenin:57 [facility] ED Fall Risk Assessment (Adult) History of falling in the last 3 months, bm8 including since admission No falls in past 3 months (0 pts) Confusion or Disorientation No (0 pts) Intoxicated or Sedated No (0 pts) Impaired Gait No (0 pts) Mobility Assist Device Used No (0 pt) Altered Elimination No (0 pt) Score/Fall Risk Level 0 - 2 = Low Risk Oriented to surroundings, Maintained a safe environment, Educated pt \T\ family on fall prevention, incl call for assistance when getting out of bed, Assessed \T\ reinforced patient's understanding of fall precautions, Hourly rounding (assess needs \T\ fall precautionary measures) done, Used ambulatory aids as needed (educated on \T\ assisted with), Used gait belt as appropriate. Abuse screen: Denies threats or abuse. Nutritional screening: No deficits noted. Tuberculosis screening: No symptoms or risk factors identified. Assessment: 02:56 Reassessment: Patient appears in no apparent distress at this time. Patient and/or bm8 family updated on plan of care and expected duration. Pain level reassessed. Patient is alert, oriented x 3, equal unlabored respirations, skin warm/dry/pink. Patient denies pain at this time. General: Appears in no apparent distress. comfortable, Behavior is calm, cooperative, appropriate for age. Pain: Denies pain. Cardiovascular: No deficits noted. Denies chest pain, Heart tones S1 S2 present. Respiratory: Airway is patent Respiratory effort is even, unlabored, Respiratory pattern is regular, symmetrical, Breath sounds are clear bilaterally. GI: Abdomen is flat, non-distended, Bowel sounds present X 4 quads. Reports nausea. : No signs and/or symptoms were reported regarding the genitourinary system. EENT: No signs and/or symptoms were reported regarding the EENT system. Derm: No signs and/or symptoms reported regarding the dermatologic system. Musculoskeletal: No signs and/or symptoms reported regarding the musculoskeletal system. 05:13 Reassessment: Patient appears in no apparent distress at this time. Patient and/or bm8 family updated on plan of care and expected duration. Pain level reassessed. Patient is alert, oriented x 3, equal unlabored respirations, skin warm/dry/pink. Patient denies pain at this time. Patient states feeling better. 06:28 Reassessment: pt reported nausea and vomiting again, provider notified and new orders bm8 received. Vital Signs: 03:48 Pulse 100; Resp 14; Temp 98.4; Pulse Ox 100% ; Weight 90.72 kg; Height 5 ft. 10 in. ; bm8 Pain 7/10; 05:13 BP 114 / 57; Pulse 98; Resp 17; Temp 98.4; Pulse Ox 97% ; Pain 0/10; bm8 06:28 BP 149 / 91; Pulse 108; Resp 20; Temp 98.4; Pulse Ox 98% ; Pain 0/10; bm8 03:48 Body Mass Index 28.70 (90.72 kg, 177.8 cm) bm8 03:48 Pain Scale: Adult bm8 05:13 Pain Scale: Adult bm8 06:28 Pain Scale: Adult bm8 [place] Coma Score: 02:57 Eye Response: spontaneous(4). Motor Response: obeys commands(6). Verbal Response: bm8 oriented(5). Total: 15. 05:13 Eye Response: spontaneous(4). Motor Response: obeys commands(6). Verbal Response: bm8 oriented(5). Total: 15. 05:30 Eye Response: spontaneous(4). Motor Response: obeys commands(6). Verbal Response: sp4 oriented(5). Total: 15. 06:28 Eye Response: spontaneous(4). Motor Response: obeys commands(6). Verbal Response: bm8 oriented(5). Total: 15. ED Course: 02:08 Patient arrived in ED. [email or web address] 02:15 Mesfin Avila MD is Attending Physician. sp4 02:15 Arm band placed on right wrist. bm8 02:16 Robb Rae, RN is Primary Nurse. bm8 02:46 XRAY Chest (1 view) In Process Unspecified. EDMS 02:57 Patient has correct armband on for positive identification. Bed in low position. Call bm8 light in reach. Side rails up X 1. Adult w/ patient. Client placed on continuous cardiac and pulse oximetry monitoring. NIBP monitoring applied. schedule planning manager on. Pulse ox on. NIBP on. Door closed. Noise minimized. Warm blanket given. Pillow given. Verbal reassurance given. 02:57 No provider procedures requiring assistance completed. Initial lab(s) drawn, by me, bm8 sent to lab. Inserted saline lock: 20 gauge in right antecubital area, using aseptic technique. Blood collected. Flushed with 10 mL NS. Patient maintains SpO2 saturation greater than 95% on room air. 04:09 Inserted saline lock: 18 gauge in left antecubital area, using aseptic technique. IV bm8 discontinued, intact, bleeding controlled, No redness/swelling at site. Pressure dressing applied, iv inadvertently dislodged by patient movements. 06:35 Bradley Molina MD is Hospitalizing Provider. sp4 06:51 SARS RAPID Sent. vk 06:51 Influenza Screen (a \T\ B) Sent. vk 07:08 Report given to Turner RN. bm8 07:12 Triage completed. bm8 Administered Medications: 02:54 Drug: NS 0.9% IV 1000 ml IV at 1000 ml once; to be given as a bolus over 60 minutes bm8 Route: IV; Rate: 1000 ml; Site: right antecubital; 07:30 Follow up: IV Status: Completed infusion iw 02:54 Drug: NS 0.9% IV 1000 ml IV at 1 bolus Per protocol; to be given as a bolus over 60 bm8 minutes Route: IV; Rate: 1 bolus; Site: right antecubital; 07:30 Follow up: IV Status: Completed infusion iw 02:54 Drug: Ondansetron IVP 8 mg IVP once; over 2 minutes Route: IVP; Site: right antecubital;bm8 03:57 Follow up: Response: No adverse reaction bm8 02:54 Drug: Insulin Regular Human IVP 10 units IVP once {Co-Signature: kj2 (Larissa Torrez8 RN).} Route: IVP; Site: right antecubital; 03:57 Follow up: Response: No adverse reaction bm8 05:10 Drug: Insulin Regular Human IVP 10 units IVP once {Co-Signature: mt4 (Guille Antonio8 RN).} Route: IVP; Site: left antecubital; 08:00 Follow up: Response: No adverse reaction iw 05:10 Drug: NS 0.9% IV 1000 ml IV at 1000 ml once; to be given as a bolus over 60 minutes bm8 Route: IV; Rate: 1000 ml; Site: left antecubital; 07:15 Follow up: IV Status: Completed infusion iw 05:58 Drug: NS 0.9% IV 1000 ml IV at 125 ml/hr Per protocol; to be given as a bolus over 60 bm8 minutes Route: IV; Rate: 125 ml/hr; Site: left antecubital; 11:00 Follow up: IV Status: Infusion continued upon admission iw 06:27 Drug: metoCLOPramide IVP 10 mg IVP once; over 1 to 2 minutes Route: IVP; Site: left bm8 antecubital; Medication: 02:57 VIS not applicable for this client. bm8 Outcome: 06:39 Decision to Hospitalize by Provider. sp4 09:00 Admitted to ER Hold. Please see [facility] for further documentation. iw 17:38 Patient left the ED. ss 17:38 Admitted to ICU via wheelchair, room 5, with chart, iw 17:38 Condition: stable 17:38 Discharge instructions given to patient, Instructed on the need for admit, Signatures: Dispatcher [employer] EDPatsy Schaffer RN RN Patricia Rodriguez RN RN Yuki Mishra Sergey, MD MD sp4 Dior Chowdhury Brad, RN RN bm8 Guille Antonio, RN RN mt4 Larissa Torrez RN kj2 Guille Antonio RN mt4
--- NOTE | 2024-04-02 07:10 | P.HP ---
Patient History Date of Service: 04/02/24 Allergies clindamycin Allergy (Verified 02/14/22 17:04) Itching/Hives/Rash Home Medications: Insulin Degludec [Tresiba] 32 units SQ SEECOM 02/09/22 Insulin Aspart [Novolog Flexpen] See Rx Instructions .ROUTE .COMPLEX 01/19/24 Collagenase [Santyl Ointment*] 1 appl TOP DAILY #1 tube 01/21/24 Doxycycline Hyclate 100 mg PO BID 10 Days #20 tab 01/21/24 Smz./Tmp. 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 - Family History Mother -: Cancer - Social History Alcohol use: Yes CD- Drugs: No Caffeine use: Yes Physical Examination - Studies Laboratory Data (last 24 hrs) 04/02/24 04/02/24 04/02/24 05:56 02:33 02:33 WBC 6.60 Hgb 13.7 Hct 40.3 Plt Count 237 Sodium 142 D 134 L Potassium 3.8 D 4.9 BUN 21 H 21 H Creatinine 1.40 H 1.61 H Glucose 369 H 654 H* Magnesium 2.0 Total Bilirubin 1.0 AST 18 ALT 28 Alkaline Phosphatase 93 Microbiology Data (last 24 hrs): 04/02/24 02:17 Nasopharnyx Influenza Type A Antigen Screen - Final 04/02/24 02:17 Nasopharnyx Influenza Type B Antigen Screen - Final Assessment and Plan - Advance Directives Does patient have a Living Will: No Does patient have a Durable POA for Healthcare: No
[2024-04-02] MEDS ORDERED: ACETAMINOPHEN 500 MG TAB PO PRN (07:29)
[2024-04-02] MEDS ORDERED: HYDROCODONE/APAP 5/325 MG TAB PO PRN (07:36)
[2024-04-02 07:57] LABS: SARS-CoV-2 Antigen CONTROL BLUE LINE VIS/BG OK; SARS-CoV-2 Antigen Rapid Res Negative (Negative)
[2024-04-02] MEDS: NA CHLORIDE 0.9% 1,000 ML IV SCH ×2 (08:00→08:23)
[2024-04-02] MEDS ORDERED: SODIUM CHLORIDE 0.9% 10ML INJ IV PRN ×2 (08:15→13:56)
[2024-04-02] MEDS ORDERED: INSULIN GLARGINE 100 UNIT/ML SQ ONE (08:37)
[2024-04-02] MEDS ORDERED: PANTOPRAZOLE 40 MG INJ ONE (08:38)
[2024-04-02] MEDS: PANTOPRAZOLE 40 MG INJ IVP SCH (08:45)
[2024-04-02] MEDS: INSULIN GLARGINE 100 UNIT/ML SQ SCH (08:47)
[2024-04-02] MEDS ORDERED: PROMETHAZINE INJ 25 MG/ML AMP ONE ×2 (08:51→13:53)
[2024-04-02] MEDS ORDERED: PIPER TAZO 3.375 GM in NA CHLORIDE 0.9% 100 ML IV SCH (09:00)
[2024-04-02] MEDS: PROMETHAZINE INJ 25 MG/ML AMP IV PRN (09:00)
[2024-04-02] MEDS ORDERED: VANCOMYCIN 2 GM in NA CHLORIDE 0.9% 500 ML IVPB SCH (09:00)
[2024-04-02] MEDS ORDERED: MORPHINE 2 MG/ML SYR ONE (10:48)
[2024-04-02] MEDS: MORPHINE 2 MG/ML SYR IV PRN (11:07)
[2024-04-02] MEDS ORDERED: D10W 125 ML IV PRN (12:11)
[2024-04-02] MEDS ORDERED: GLUCAGON 1 MG/VIAL IM PRN (12:11)
--- NOTE | 2024-04-02 12:18 | P.HP ---
Certification for Inpatient With expected LOS: <2 Midnights <Mitzi Waters - Last Filed: 04/02/24 12:13> Patient History Date of Service: 04/02/24 Reason for admission: hyperglycemia History of Present Illness: 33-year-old man with a past medical history significant for DMT2 insulin- dependent presented to the emergency department complaining of nausea/vomiting x 4 days. The patient states he had 2 episodes of nonbloody emesis today. The patient's last bowel movement was today. He is a never smoker. The patient states he has been compliant with with his insulin, but feels insulin is " not working". He has not attempted anything to alleviate his nausea and vomiting, and states nothing worsens. Also, the patient has a dry cough. The patient was found to have a diabetic ulcer on his left great toe, without drainage. He denies fever, dyspnea, and urinary symptoms. Home medications list reviewed: Yes - Past Medical/Surgical History Diabetic: Yes -: Diabetes mellitus type 1 -: ADD/ADHD -: Gastroparesis -: Anxiety -: gastroparesis -: Left great toe diabetic ulcer Psychosocial/ Personal History: Single, works-[employer], 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 - Family History Mother -: Cancer - Social History Smoking Status: Never smoker Alcohol use: No CD- Drugs: No Caffeine use: Yes <Mitzi Waters - Last Filed: 04/02/24 12:13> Date of Service: 04/02/24 <Bradley Molina - Last Filed: 04/08/24 18:14> Allergies clindamycin Allergy (Verified 02/14/22 17:04) Itching/Hives/Rash Home Medications: Insulin Aspart [Novolog Flexpen] See Rx Instructions .ROUTE .COMPLEX 01/19/24 Collagenase [Santyl Ointment*] 1 appl TOP DAILY #1 tube 01/21/24 Insulin Glargine,Hum.rec.anlog [Semglee] 20 unit SQ BID #2 syr 04/05/24 Metoclopramide [Reglan] 5 mg PO AC #90 tab 04/05/24 Pantoprazole [Protonix Tab] 40 mg PO DAILY #30 tab 04/05/24 Review of Systems Respiratory: Cough (Dry) Gastrointestinal: Nausea, Vomiting (Nonbloody), Abdominal Pain (Generalized), Distention <Mitzi Waters Q - Last Filed: 04/02/24 12:13> Physical Examination - Vital Signs Temperature: 98.4 F Blood Pressure: 166/83 Pulse: 105 Respirations: 18 Pulse Ox (%): 100 (On room air) - Physical Exam General: Oriented x3, Acute distress HEENT: Atraumatic, Normocephalic Neck: JVD not distended Respiratory: Clear to auscultation bilaterally Cardiovascular: No edema, No gallops, No rubs, No murmurs, Irregular heart rate/rhythm (Tachycardic rate of 105) Gastrointestinal: Normal bowel sounds, Non-distended, No masses, Tenderness ( Generalized tenderness in all abdominal quadrants) Musculoskeletal: No swelling, No erythema, No tenderness, No warmth Integumentary: Diabetic ulcer (Left great toe, closed without drainage) Neurological: Normal strength at 5/5 x4 extr, Sensation intact - Studies Laboratory Data (last 24 hrs) 04/02/24 04/02/24 04/02/24 05:56 02:33 02:33 WBC 6.60 Hgb 13.7 Hct 40.3 Plt Count 237 Sodium 142 D 134 L Potassium 3.8 D 4.9 BUN 21 H 21 H Creatinine 1.40 H 1.61 H Glucose 369 H 654 H* Magnesium 2.0 Total Bilirubin 1.0 AST 18 ALT 28 Alkaline Phosphatase 93 Microbiology Data (last 24 hrs): 04/02/24 02:17 Nasopharnyx Influenza Type A Antigen Screen - Final 04/02/24 02:17 Nasopharnyx Influenza Type B Antigen Screen - Final <Mitzi Waters Q - Last Filed: 04/02/24 12:13> Assessment and Plan - Problems (Diagnosis) (1) Acute hyperglycemia Status: Acute (2) Diabetes Status: Acute (3) Diabetic foot ulcer Status: Acute - Plan Hyperglycemia: Admit to floor Zofran ordered Promethazine ordered Protonix ordered IVF ordered Insulin sliding scale ordered Given Zofran, IVF, 10 units of regular insulin x 2 in ED Negative troponin Negative lactic acid Diabetic foot ulcer: Left great toe with closed wound without drainage Diabetes: Carb controlled diet On insulin sliding scale - Advance Directives Does patient have a Living Will: No Does patient have a Durable POA for Healthcare: No <Mitzi Waters Q - Last Filed: 04/02/24 12:13> Date of Service: 04/02/24 Patient was seen and examined. Events of the last 24 hours have been noted. Spoke with with SAM regarding patient's clinical picture after evaluating and examining the patient independently. I performed a substantial part of the MDM during this patient's care today. I personally made or approved the documented management plan and acknowledge its risk of complications. I agree with the findings and documentation provided in the SAM's notes. Continue with strict blood sugar control. Monitor patient closely. <Bradley Molina - Last Filed: 04/08/24 18:14>
[2024-04-02] MEDS: PANTOPRAZOLE 40 MG INJ IVP ONE (13:56)
[2024-04-02] MEDS: PANTOPRAZOLE INJ 80 MG in NA CHLORIDE 0.9% 250 ML IV SCH (14:00)
[2024-04-02] MEDS: METOCLOPRAMIDE 10 MG/2mL INJ IV SCH (14:00)
[2024-04-02 14:20] LABS: Absolute Lymphocytes (CBC) 0.5 K/uL (0.7-4.9); Absolute Monocytes 0.2 K/uL (0.1-1.3); Absolute Neutrophil 7.5 K/uL (1.8-8.0); Basophils % 0.2 % (0-1.3); Hematocrit 38.7 % (39.6-49.0); Hemoglobin 13.2 g/dL (13.6-17.9); Lymphocytes % 5.7 % (15.3-44.8); MCH 30.5 pg (27.0-35.0); MCV 89.6 fL (80-100); MPV 7.8 fL (7.6-11.3); Monocytes % 2.4 % (3.3-12.3); Neutrophils % 91.7 % (41.7-73.7); Platelets 213 thou/uL (152-406); RBC Red Blood Cell Count 4.31 M/uL (4.33-5.43)
[2024-04-02] MEDS: INSULIN REGULAR (HUMAN) 100 UNIT/ML SQ SCH (14:46)
[2024-04-02 17:53] LABS: Specific Gravity 1.026 (1.005-1.030); Sqamous Epithelial None Seen /HPF (None Seen); Urine Bacteria None Seen /HPF (<20); Urine Bilirubin NEGATIVE (Negative); Urine Blood 1+ (Negative); Urine Clarity Clear (Clear); Urine Color Colorless (Yellow); Urine Culture Reflex Order NOT NEEDED; Urine Glucose 4+ (Over) (Negative); Urine Ketones 3+ (Negative); Urine Microscopic Reflex YN ORDER UMIC; Urine Nitrite NEGATIVE (Negative); Urine Protein 1+ (Negative); Urine RBC <5 /HPF (None Seen); Urine Sperm Present (None Seen); Urine Urobilinogen Normal (Normal); Urine WBC <5 /HPF (<5); Urine pH 5.5 (5.0-7.0)
[2024-04-02 18:49] LABS: Platelet Estimate ADEQ; White Blood Cell Scan OK (OK)
[2024-04-02 18:50] LABS: Blood Morphology Comment NOT SEEN (NOT SEEN)
[2024-04-03] MEDS ORDERED: VANCOMYCIN 1.75 GM in NA CHLORIDE 0.9% 500 ML IVPB SCH (03:00)
[2024-04-03 06:17] LABS: Absolute Lymphocytes (CBC) 1.1 K/uL (0.7-4.9); Absolute Monocytes 0.5 K/uL (0.1-1.3); Absolute Neutrophil 8.7 K/uL (1.8-8.0); Basophils % 0.2 % (0-1.3); Eosinophils % 0.1 % (0-4.4); Hematocrit 32.8 % (39.6-49.0); Hemoglobin 11.6 g/dL (13.6-17.9); Lymphocytes % 10.5 % (15.3-44.8); MCH 31.4 pg (27.0-35.0); MCHC 35.4 g/dL (32.0-36.0); MCV 88.7 fL (80-100); MPV 7.8 fL (7.6-11.3); Monocytes % 4.5 % (3.3-12.3); Neutrophils % 84.7 % (41.7-73.7); Nucleated Red Blood Cells % 0.1 % (0-0); Platelets 212 thou/uL (152-406); Red Cell Distribution Width 13.3 % (12.1-15.2)
[2024-04-03 06:24] LABS: Anion Gap 8.7 mEq/L (5.0-15.0); Potassium 3.7 mEq/L (3.5-5.1)
[2024-04-03] MEDS ORDERED: SODIUM CHLORIDE 0.9% 10ML INJ IV PRN (10:37)
[2024-04-03] MEDS: ONDANSETRON 4 MG/2 ML VIAL IV PRN (12:03)
--- NOTE | 2024-04-03 12:10 | P.PN ---
Subjective Date of Service: 04/03/24 Chief Complaint: hyperglycemia Patient is alert, and oriented x 3. He reports two episodes of non-bloody emesis overnight. The patient states that he is unable to tolerate liquids at this time-unable to hold water down. The patient's family member is present at bedside. He is on hospital day #2. Otherwise, the patient denies fever, cough, dyspnea, urinary symptoms, and abdominal pain. <Mitzi Waters Q - Last Filed: 04/03/24 13:44> Date of Service: 04/03/24 <TracyKarolinajames Melissa - Last Filed: 04/08/24 18:14> Review of Systems Gastrointestinal: Nausea, Vomiting (2 episodes, non bloody) <Mitzi Waters Q - Last Filed: 04/03/24 13:44> Physical Examination - Vital Signs Temperature: 98.2 F Blood Pressure: 172/95 Pulse: 102 Respirations: 20 Pulse Ox (%): 99 - Physical Exam General: Alert, Oriented x3 HEENT: Atraumatic, Normocephalic Neck: JVD not distended Respiratory: Clear to auscultation bilaterally Cardiovascular: No edema, Regular rate/rhythm, No gallops, No rubs, No murmurs Gastrointestinal: Normal bowel sounds, Non-distended, No tenderness Musculoskeletal: No swelling, No erythema, No tenderness, No warmth Neurological: Normal strength at 5/5 x4 extr, Sensation intact - Studies Microbiology Data (last 24 hrs): 04/02/24 02:17 Nasopharnyx Influenza Type A Antigen Screen - Final 04/02/24 02:17 Nasopharnyx Influenza Type B Antigen Screen - Final <Mitzi Waters Q - Last Filed: 04/03/24 13:44> Assessment And Plan - Current Problems (Diagnosis) (1) Acute hyperglycemia Status: Acute (2) Diabetes Status: Acute (3) Diabetic foot ulcer Status: Acute - Plan Hyperglycemia: 04/03/24 Hospital day #2 Zofran ordered Promethazine order cancelled Reglan ordered Protonix ordered Insulin sliding scale ordered NPO diet, will consider advancing diet once emesis resolves Social service consult placed on 04/02/24 for new glucometer Diabetic foot ulcer: Left great toe with closed wound without drainage Hypernatremia: Na now 148 1/2 NS ordered <Mitzi Waters - Last Filed: 04/03/24 13:44> Date of Service: 04/03/24 Patient was seen and examined. Events of the last 24 hours have been noted. Spoke with with SAM regarding patient's clinical picture after evaluating and examining the patient independently. I performed a substantial part of the MDM during this patient's care today. I personally made or approved the documented management plan and acknowledge its risk of complications. I agree with the findings and documentation provided in the SAM's notes. <Bradley Molina - Last Filed: 04/08/24 18:14>
[2024-04-03] MEDS: NACHLORIDE 0.45% 1,000 ML IV SCH (12:32)
[2024-04-03] MEDS: KCL 20 MEQ/100 mL IVPB 20 MEQ/100 ML BAG IV SCH (12:53)
[2024-04-03] MEDS ORDERED: D10W 125 ML IV PRN (14:36)
[2024-04-03] MEDS: METHYLPREDNISOLONE 40 MG INJ IV ONE (14:42)
[2024-04-03] MEDS: PANTOPRAZOLE 40 MG INJ IVP SCH (20:28)
[2024-04-04 05:58] LABS: Absolute Lymphocytes (CBC) 1.7 K/uL (0.7-4.9); Absolute Monocytes 0.4 K/uL (0.1-1.3); Absolute Neutrophil 5.8 K/uL (1.8-8.0); Basophils % 0.3 % (0-1.3); Eosinophils % 0.1 % (0-4.4); Hematocrit 32.2 % (39.6-49.0); Hemoglobin 11.1 g/dL (13.6-17.9); Lymphocytes % 21.4 % (15.3-44.8); MCH 30.8 pg (27.0-35.0); MCHC 34.6 g/dL (32.0-36.0); MCV 88.9 fL (80-100); Monocytes % 5.5 % (3.3-12.3); Neutrophils % 72.7 % (41.7-73.7); Platelets 173 thou/uL (152-406); RBC Red Blood Cell Count 3.62 M/uL (4.33-5.43); Red Cell Distribution Width 12.9 % (12.1-15.2)
[2024-04-04 06:19] LABS: Anion Gap 7.3 mEq/L (5.0-15.0); Magnesium 1.7 mg/dL (1.6-2.4); Potassium 3.3 mEq/L (3.5-5.1)
[2024-04-04] MEDS: MAGNESIUM SULFATE 1 gm IVPB 1 GM/100 ML BAG IV ONE (08:09)
[2024-04-04] MEDS: POTASSIUM CL SA 10 MEQ TAB PO ONE (08:09)
[2024-04-04 09:01] VITALS: O2SAT 97; BMI 28.7
[2024-04-05 05:11] LABS: Absolute Eosinophils 0.1 K/uL (0-0.5); Absolute Monocytes 0.6 K/uL (0.1-1.3); Absolute Neutrophil 4.2 K/uL (1.8-8.0); Basophils % 0.5 % (0-1.3); Eosinophils % 0.8 % (0-4.4); Hematocrit 36.1 % (39.6-49.0); Lymphocytes % 28.9 % (15.3-44.8); MCH 31.2 pg (27.0-35.0); MCV 86.6 fL (80-100); MPV 7.2 fL (7.6-11.3); Monocytes % 8.4 % (3.3-12.3); Neutrophils % 61.4 % (41.7-73.7); Nucleated Red Blood Cells % 0.1 % (0-0); Platelets 197 thou/uL (152-406); RBC Red Blood Cell Count 4.17 M/uL (4.33-5.43); Red Cell Distribution Width 12.8 % (12.1-15.2)
[2024-04-05 05:31] LABS: Anion Gap 6.8 mEq/L (5.0-15.0); Magnesium 1.7 mg/dL (1.6-2.4); Potassium 2.8 mEq/L (3.5-5.1)
[2024-04-05] MEDS: KCL 20 MEQ/100 mL IVPB 20 MEQ/100 ML BAG IV SCH ×2 (05:52→13:00)
[2024-04-05] MEDS: MAGNESIUM SULFATE 1 gm IVPB 1 GM/100 ML BAG IV ONE (09:05)
[2024-04-05] MEDS ORDERED: POTASSIUM CL 40 MEQ in NA CHLORIDE 0.9% 500 ML IV SCH (10:00)
[2024-04-05] MEDS: POTASSIUM 25 MEQ EFFERV TAB PO ONE ×3 (10:28→15:28)
--- NOTE | 2024-04-05 10:50 | P.DS ---
Admission Date: 04/02/24 Discharge Date: 04/05/24 Reason for Admission: hyperglycemia Brief History of Present Illness: 33-year-old man with a past medical history significant for DMT2 insulin- dependent presented to the emergency department complaining of nausea/vomiting x 4 days. The patient states he had 2 episodes of nonbloody emesis today. The patient's last bowel movement was today. He is a never smoker. The patient states he has been compliant with with his insulin, but feels insulin is " not working". He has not attempted anything to alleviate his nausea and vomiting, and states nothing worsens. Also, the patient has a dry cough. The patient was found to have a diabetic ulcer on his left great toe, without drainage. He denies fever, dyspnea, and urinary symptoms. - Physical Exam General: Oriented x3, HEENT: Atraumatic, Normocephalic Neck: JVD not distended Respiratory: Clear to auscultation bilaterally Cardiovascular: No edema, No gallops, No rubs, No murmurs, Gastrointestinal: Normal bowel sounds, Non-distended, No masses, Tenderness Musculoskeletal: No swelling, No erythema, No tenderness, No warmth Integumentary: Diabetic ulcer (Left great toe, closed without drainage) Neurological: Normal strength at 5/5 x4 extr, Sensation intact Hospital Course: 33-year-old man with a past medical history significant for DMT2 insulin- dependent presented to the emergency department complaining of nausea/vomiting x 4 days. The patient states he had 2 episodes of nonbloody emesis today. The patient's last bowel movement was today. He is a never smoker. The patient states he has been compliant with with his insulin, but feels insulin is " not working". He has not attempted anything to alleviate his nausea and vomiting, and states nothing worsens. Also, the patient has a dry cough. The patient was found to have a diabetic ulcer on his left great toe, without drainage. He denies fever, dyspnea, and urinary symptoms. Was noted to have DKA, diabetes, diabetic foot ulcer, was admitted to ICU for IV fluids, insulin, per DKA protocol. Improved with treatment plan, stable to downgrade to [facility], tolerating diet, plan to discharge home, follow-up with primary care in 1 week, call office for appointment Discharge medication pantoprazole Reglan take as instructed Long-acting insulin Semglee 20 units twice daily Assessment DKA resolved, Insulin-dependent diabetes mellitus, resume home diabetic medication, follow-up with primary care Diabetic foot ulcer healed, Continue home medicines as previously prescribed GOAL: Clear understanding of disease process INSTRUCTIONS: Physician Discharge Instructions: -Follow-up with PCP in 1 to 2 weeks -Please call Dr. Molina at [phone] if any questions regarding hospital stay -Please call nursing station at [phone] if any nursing or medication questions -Return to the emergency room if symptoms worsen Diet: ADA, low sodium Activity: Fall precautions <Isabela Quinonez - Last Filed: 04/05/24 19:56> Admission Date: 04/02/24 Discharge Date: 04/05/24 - Problems (1) Acute hyperglycemia Status: Acute (2) Acute renal failure Status: Acute (3) Cyclical vomiting Status: Acute (4) DKA (diabetic ketoacidoses) Onset Date: 05/31/18 Status: Acute Qualifiers: Diabetes mellitus type: type 1 Diabetes mellitus complication detail: without coma Qualified Code(s): E10.10 - Type 1 diabetes mellitus with ketoacidosis without coma Hospital Course: Patient was seen and examined. Events of the last 24 hours have been noted. Spoke with with SAM regarding patient's clinical picture after evaluating and examining the patient independently. I performed a substantial part of the MDM during this patient's care today. I personally made or approved the documented management plan and acknowledge its risk of complications. I agree with the fi ndings and documentation provided in the SAM's notes. Close outpatient follow with PCP for strict diabetic management. <Bradley Molina - Last Filed: 04/08/24 18:21> Disposition: ROUTINE DISCHARGE Discharge Condition: GOOD Vital Signs/Physical Exam: Temp Pulse Resp BP Pulse Ox 98.8 F 90 14 142/80 H 96 04/05/24 08:20 04/05/24 08:20 04/05/24 08:20 04/05/24 08:20 04/05/24 08:20 Laboratory Data at Discharge: WBC 6.90 thou/uL (4.3-10.9) 04/05/24 04:49 Hgb 13.0 g/dL (13.6-17.9) L D 04/05/24 04:49 Hct 36.1 % (39.6-49.0) L 04/05/24 04:49 Plt Count 197 thou/uL (152-406) 04/05/24 04:49 Sodium 141 mEq/L (136-145) 04/05/24 04:49 Potassium 2.8 mEq/L (3.5-5.1) L D 04/05/24 04:49 BUN 6 mg/dL (7-18) L 04/05/24 04:49 Creatinine 0.94 mg/dL (0.70-1.30) 04/05/24 04:49 Glucose 68 mg/dL (74-106) L 04/05/24 04:49 Magnesium 1.7 mg/dL (1.6-2.4) 04/05/24 04:49 Total Bilirubin 1.0 mg/dL (0.2-1.0) 04/02/24 02:33 AST 18 U/L (15-37) 04/02/24 02:33 ALT 28 U/L (16-61) 04/02/24 02:33 Alkaline Phosphatase 93 U/L (45-117) 04/02/24 02:33 <Isabela Quinonez - Last Filed: 04/05/24 19:56> Vital Signs/Physical Exam: Temp Pulse Resp BP Pulse Ox 98.5 F 95 H 14 142/77 H 97 04/08/24 18:16 04/08/24 18:16 04/08/24 18:16 04/08/24 18:16 04/08/24 18:16 General: Alert, In no apparent distress, Oriented x3 Laboratory Data at Discharge: WBC 6.90 thou/uL (4.3-10.9) 04/05/24 04:49 Hgb 13.0 g/dL (13.6-17.9) L D 04/05/24 04:49 Hct 36.1 % (39.6-49.0) L 04/05/24 04:49 Plt Count 197 thou/uL (152-406) 04/05/24 04:49 Sodium Cancelled 04/05/24 15:00 Potassium Cancelled 04/05/24 15:00 BUN Cancelled 04/05/24 15:00 Creatinine Cancelled 04/05/24 15:00 Glucose Cancelled 04/05/24 15:00 Magnesium 1.7 mg/dL (1.6-2.4) 04/05/24 04:49 Total Bilirubin 1.0 mg/dL (0.2-1.0) 04/02/24 02:33 AST 18 U/L (15-37) 04/02/24 02:33 ALT 28 U/L (16-61) 04/02/24 02:33 Alkaline Phosphatase 93 U/L (45-117) 04/02/24 02:33 <Bradley Molina - Last Filed: 04/08/24 18:21> Diet: ADA Activity: Fall precautions Time spent managing pt's care (in minutes): 45 <Isabela Quinonez - Last Filed: 04/05/24 19:56> <Bradley Molina - Last Filed: 04/08/24 18:21> Home Medications: Insulin Aspart [Novolog Flexpen] See Rx Instructions .ROUTE .COMPLEX 01/19/24 Collagenase [Santyl Ointment*] 1 appl TOP DAILY #1 tube 01/21/24 Insulin Glargine,Hum.rec.anlog [Semglee] 20 unit SQ BID #2 syr 04/05/24 Metoclopramide [Reglan] 5 mg PO AC #90 tab 04/05/24 Pantoprazole [Protonix Tab] 40 mg PO DAILY #30 tab 04/05/24 New Medications: Pantoprazole [Protonix Tab] 40 mg PO DAILY #30 tab Metoclopramide [Reglan] 5 mg PO AC #90 tab Insulin Glargine,Hum.rec.anlog [Semglee] 20 unit SQ BID #2 syr Physician Discharge Instructions: -DC IV and DC home -Follow-up with PCP in 1 to 2 weeks -Please call Dr. Molina at [phone] if any questions regarding hospital stay -Please call nursing station at [phone] if any nursing or medication questions -Return to the emergency room if symptoms worsen Followup: NEMO SAGE [Primary Care Provider] - 1-2 Weeks
[2024-04-05 12:41] VITALS: BP 142/77; TEMP 98.5
--- NOTE | 2024-04-05 15:59 | EKG ---
Test Date: 2024-04-02 Test Time: 02:27:17 Choker Setter: JANE MEASUREMENT RESULTS: Intervals: Rate: 101 MI: 146 QRSD: 64 QT: 316 QTc: 409 [place]: P: 53 MI: 146 QRS: 66 T: 13 INTERPRETIVE STATEMENTS: Sinus tachycardia Possible Left atrial enlargement Anterior infarct, age undetermined Abnormal ECG Compared to ECG 01/19/2024 12:42:28 Myocardial infarct finding now present T-wave abnormality no longer present Electronically Signed On 04-05-24 15:52:47 PROCESS COACH by Corby Dewitt
--- NOTE | 2024-04-08 18:16 | P.PN ---
Subjective Date of Service: 04/04/24 Patient continues to improve. Clinical symptoms are stable. Review of Systems 10-point ROS is otherwise unremarkable Physical Examination - Vital Signs Temperature: 98.5 F Blood Pressure: 142/77 Pulse: 95 Respirations: 14 Pulse Ox (%): 97 - Physical Exam General: Alert, In no apparent distress HEENT: Atraumatic, PERRLA, EOMI Neck: Supple, JVD not distended Respiratory: Clear to auscultation bilaterally, Normal air movement Cardiovascular: Regular rate/rhythm, Normal S1 S2 Gastrointestinal: Normal bowel sounds, No tenderness Musculoskeletal: No tenderness Integumentary: No rashes Neurological: Normal speech, Normal tone, Normal affect Lymphatics: No axilla or inguinal lymphadenopathy - Studies Medications List Reviewed: Yes Assessment & Plan - Problems (Diagnosis) (1) Acute hyperglycemia Status: Acute (2) Acute renal failure Status: Acute (3) Cyclical vomiting Status: Acute (4) DKA (diabetic ketoacidoses) Onset Date: 05/31/18 Status: Acute Qualifiers: Diabetes mellitus type: type 1 Diabetes mellitus complication detail: without coma Qualified Code(s): E10.10 - Type 1 diabetes mellitus with ketoacidosis without coma - Plan Plan: 1. Blood sugars are stable. Renal function has improved. Nausea vomiting much better. We will advanced diet and anticipate discharge in a.m.. Discharge Plan: Home Plan to discharge in: Greater than 2 days - Advance Directives Does patient have a Living Will: No Does patient have a Durable POA for Healthcare: No Critical Care: No Time Spent Managing PTS Care (In Minutes): 35
== END 2024-04-05 15:42 | disposition home or self-care (01) | DRG 638 ==
LOC: ER 02:05 → ERHOLD 07:27 → 3RD-ICU 17:09 → 2ND 04-04 18:08
PROVIDERS: ADMIT Hospitalist; ATTEND Hospitalist
DX: E11.10 Type 2 diabetes mellitus with ketoacidosis without coma (principal); E87.0 Hyperosmolality and hypernatremia; N17.9 Acute kidney failure, unspecified; E86.0 Dehydration; F90.9 Attention-deficit hyperactivity disorder, unspecified type; E11.621 Type 2 diabetes mellitus with foot ulcer; L97.529 Non-pressure chronic ulcer of other part of left foot with unspecified severity; Z79.4 Long term (current) use of insulin; Z88.1 Allergy status to other antibiotic agents; Z11.52 Encounter for screening for COVID-19; Z79.899 Other long term (current) drug therapy
CPT/HCPCS: 36415; 71045; 80048; 80076; 81001; 82947; 83036; 83605; 83735; 83880; 84484; 85025; 86850; 86900; 86901; 87040; 87804; 87811; 93005; 99285; J2270; J2405; J2470; J2550; J2765; J2919; J3475; J3480; J7030; J7040; J7050